=== PATIENT | female | born 1985 | race Caucasian/White ===

== ENCOUNTER 2016-07-23 21:26 | Emergency (ER) | payer MEDICAID ==
[~2016-07-23] VITALS: Ht 172.7 cm; Wt 108.9 kg
[~2016-07-23 21:26] MED LIST: ACYC400T PO; ALPR0.5T7 PO; ARIP15TA PO; CEPH250C PO; CETI10TA17; CLON0.253 PO; CYCL10TA9; DOCU100C37 PO; ESCI10TA48; ESCI20TA45 PO; GABA-488; HYDR-34 PO; HYDR-3816 PO; IBUP-1773 PO; LEVO75TA6 PO; LITH300C PO; LORA0.5T PO; PALI234D IM; PRAZ2CAP2; RT-ALBUINH IH; SERT50TA PO; SIME80TA16 PO; SMTR50T PO; TPR25T PO; TRAZ150T42 PO; TRM50T PO; ZOLP5TAB6
[2016-07-23 22:12] LABS: BILIRUBIN,URINE NEGATIVE (NEGATIVE); KETONES,URINE NEGATIVE (NEGATIVE); LEUKOCYTE ESTERASE ,URINE NEGATIVE (NEGATIVE); NITRITE,URINE NEGATIVE (NEGATIVE); PH,URINE 6 (5-9); PROTEIN,URINE NEGATIVE (NEGATIVE); UROBILINOGEN,URINE NORMAL (NORMAL)
[2016-07-23 22:29] LABS: BASOPHILS % (AUTO) 0 % (0-10); EOSINOPHILS # (AUTO) 0.3 10^3/uL (0.0-0.3); EOSINOPHILS % (AUTO) 2 % (0-10); LYMPHOCYTES % (AUTO) 25 % (12-44); MEAN CORPUSCULAR HEMOGLOBIN 31 PG (25-34); MEAN CORPUSCULAR HGB CONC 35 G/DL (32-36); MEAN CORPUSCULAR VOLUME 89 FL (80-99); MEAN PLATELET VOLUME 9.2 FL (7.4-10.4); MONOCYTES # (AUTO) 1.2 X 10^3 (0.0-1.0); MONOCYTES % (AUTO) 7 % (0-12); NEUTROPHILS # (AUTO) 10.1 X 10^3 (1.8-7.8); NEUTROPHILS % (AUTO) 65 % (42-75); PLATELET COUNT 280 10^3/uL (130-400); RED BLOOD COUNT 4.57 10^6/uL (4.35-5.85); RED CELL DISTRIBUTION WIDTH 12.4 % (10.0-14.5); WHITE BLOOD COUNT 15.6 10^3/uL (4.3-11.0)
[2016-07-23 22:48] LABS: ALANINE AMINOTRANSFERASE 18 U/L (0-55); ALBUMIN 4.3 G/DL (3.2-4.5); ANION GAP 10 MMOL/L (5-14); ASPARTATE AMINO TRANSFERASE 12 U/L (5-34); BILIRUBIN,TOTAL 0.3 MG/DL (0.1-1.0); BLOOD UREA NITROGEN 15 MG/DL (7-18); BUN/CREATININE RATIO 18; CALCIUM 9.6 MG/DL (8.5-10.1); CARBON DIOXIDE 24 MMOL/L (21-32); CHLORIDE 107 MMOL/L (98-107); CREATININE SERUM 0.84 MG/DL (0.60-1.30); GFR ESTIMATED > 60; GLUCOSE 102 MG/DL (70-105); POTASSIUM 3.7 MMOL/L (3.6-5.0); SALICYLATE < 5.0 MG/DL (5.0-20.0); SODIUM 141 MMOL/L (135-145); TOTAL PROTEIN 6.6 G/DL (6.4-8.2)
[2016-07-23 22:53] LABS: ACETAMINOPHEN < 10 UG/ML (10-30); ALCOHOL < 10 MG/DL (<10)
[2016-07-23 23:15] LABS: BAND NEUTROPHILS 0 %; BASOPHILS % (MANUAL) 0 %; EOSINOPHILS % (MANUAL) 2 %; LYMPHOCYTES % (MANUAL) 28 %; NEUTROPHILS % (MANUAL) 62 %
--- NOTE | 2016-07-23 23:44 | ED Psychosocial ---
General Chief Complaint: Psych/Social Disorder Stated Complaint: MIGRAINE Nursing Triage Note: PT STATES SHE HAS HAD A MIGRANE ALL DAY. MOTHER STATES THE PT HAS PARANOID SCHITZOPHRENIA AND HAS NOT BEEN TAKING HER MEDICATIONS, STATES THE PT HAD AN INCIDENT YESTERDAY AND WAS DOING METH WHICH THE PT DENIES BUT STATES SHE WAS TAKING XANAX. Source: patient Exam Limitations: no limitations History of Present Illness Time seen by provider: 23:25 Initial Comments Here with patient's mother reports that the patient has been very agitated and having angry and dangerous outburst at home. She does have known schizophrenia but has not been taking her medications. Patient states that the mental health services is not giving it to her. Mother states that they are trying but the patient is refusing. Patient states that she does not want to take her medicines and will not. Patient is very angry and does have outbursts with her mother. She admits that she wants everybody to and then also states that she wouldn't care if she as well because she would be a better place. Denies any recent alcohol or drugs. No other reports of injury or illness. Patient does not report headache or headache concerns with me. Timing/Duration: week, getting worse, other Severity: moderate Associated Symptoms: other (angry outbursts and agitated behavior) Allergies and Home Medications Allergies Coded Allergies: No Known Drug Allergies (Unverified , 08/15/12) Home Medications Acyclovir 400 Mg Tablet 400 MG PO TID PRN PRN COLD SORE OUTBREAK (Reported) Albuterol Sulfate 6.7 Gm Hfa.aer.ad 2 PUFF IH Q4H PRN PRN SHORTNESS OF BREATH ( Reported) Cephalexin 250 Mg Capsule #40 250 MG PO QID Prescribed by: VENKAT LOOMIS on 04/29/15833 Docusate Sodium 100 Mg Capsule #60 100 MG PO BID PRN PRN CONSTIPATION Prescribed by: VENKAT LOOMIS on 04/29/15833 Escitalopram Oxalate 20 Mg Tablet 20 MG PO HS (Reported) Hydrocodone/Acetaminophen 1 Each Tablet #45 1-2 EA PO Q6H PRN PRN PAIN Prescribed by: VENKAT LOOMIS on 04/29/15833 Ibuprofen 600 Mg Tablet 600 MG PO TID PRN PRN PAIN (Reported) Ibuprofen 600 Mg Tablet #40 600 MG PO Q6H Prescribed by: VENKAT LOOMIS on 04/29/15833 Levothyroxine Sodium 75 Mcg Tablet 75 MCG PO HS (Reported) Paliperidone Palmitate 234 Mg/1.5 Ml Disp.syrin 1.5 ML IM MONTHLY (Reported) Simethicone 80 Mg Tab.chew #30 40 MG PO TID PRN PRN INDIGESTION Prescribed by: VENKAT LOOMIS on 04/29/15833 Constitutional: see HPINo chills, No fever EENTM: no symptoms reported Respiratory: no symptoms reportedNo cough, No short of breath Cardiovascular: no symptoms reported Gastrointestinal: no symptoms reportedNo nausea, No vomiting Musculoskeletal: no symptoms reported Skin: no symptoms reported Psychiatric/Neurological: See HPI Anxiety Emotional Problems All Other Systems Reviewed Negative Unless Noted: Yes Past Mhglnux-Xnpfgm-Ftznez Hx Patient Social History Alcohol Use: Denies Use Recreational Drug Use: Yes Smoking Status: Current Everyday Smoker Recent Foreign Travel: No Contact w/Someone Who Travel: No Recent Infectious Disease Expo: No Recent Hopitalizations: No Seasonal Allergies Seasonal Allergies: No Surgeries HX Surgeries: Yes (cone bx of cervix, some type ureteral surgery) Surgeries: Bladder Surgery Respiratory Hx Respiratory Disorders: Yes Respiratory Disorders: Asthma Cardiovascular Hx Cardiac Disorders: No Neurological Hx Neurological Disorders: No Reproductive System Hx Reproductive Disorders: Yes (CPP,SUDHEER III) Female Reproductive Disorders: Endometriosis Genitourinary Hx Genitourinary Disorders: No Gastrointestinal Hx Gastrointestinal Disorders: No Gastrointestinal Disorders: Chronic Diarrhea Musculoskeletal Hx Musculoskeletal Disorders: Yes Musculoskeletal Disorders: Arthritis, Chronic Back Pain Endocrine Hx Endocrine Disorders: Yes HEENT HX ENT Disorders: No Cancer Hx Cancer: No Psychosocial Hx Psychiatric Problems: Yes (Nightmares, paranoid schizo) Behavioral Health Disorders: Anxiety, Schizophrenia, Depression Integumentary HX Skin/Integumentary Disorder: No Blood Transfusions Hx Blood Disorders: No Adverse Reaction to a Blood Tr: No Reviewed Nursing Assessment Reviewed/Agree w Nursing PMH: Yes Family Medical History Significant Family History: No Pertinent Family Hx Family Medial History: Alcoholism 19 FATHER Thyroid disease 19 MOTHER Physical Exam Vital Signs Vital Sign - Last 12Hours 07/23/16 07/24/16 22:03 02:42 Temp 98.6 Pulse 87 Resp 18 B/P 154/86 Pulse Ox 96 Capillary Refill : Less Than 3 Seconds General Appearance: WD/WN no apparent distress HEENT: PERRL/EOMI pharynx normal Neck: full range of motion supple Respiratory: lungs clear normal breath sounds Cardiovascular: regular rate, rhythm no murmur Gastrointestinal: non tender soft Extremities: normal range of motion non-tender Neurologic/Psychiatric: alert depressed affect Appearance/Memory: disheveled impaired insight Behavior/Eye Contact: avoids eye contact threatening eye contact increased rate of speech belligerent Thoughts/Hallucinations: flight of ideas persecution Skin: normal color warm/dry Progress/Results/Core Measures Results/Orders Lab Results Laboratory Tests Test 07/23/16 22:06 07/23/16 22:20 Range/Units Ur Tricyclic Antidepressants Screen NEGATIVE NEGATIVE Urine Amphetamines Screen NEGATIVE NEGATIVE Urine Bacteria TRACE /HPF Urine Barbiturates Screen NEGATIVE NEGATIVE Urine Benzodiazepines Screen NEGATIVE NEGATIVE Urine Bilirubin NEGATIVE NEGATIVE Urine Cannabinoids Screen NEGATIVE NEGATIVE Urine Casts NONE /LPF Urine Clarity CLEAR Urine Cocaine Screen NEGATIVE NEGATIVE Urine Color YELLOW Urine Crystals NONE /LPF Urine Culture Indicated NO Urine Glucose (UA) NEGATIVE NEGATIVE Urine Ketones NEGATIVE NEGATIVE Urine Leukocyte Esterase NEGATIVE NEGATIVE Urine Methadone Screen NEGATIVE NEGATIVE Urine Methamphetamines Screen NEGATIVE NEGATIVE Urine Mucus NEGATIVE /LPF Urine Nitrite NEGATIVE NEGATIVE Urine Opiates Screen NEGATIVE NEGATIVE Urine Oxycodone Screen NEGATIVE NEGATIVE Urine Phencyclidine Screen NEGATIVE NEGATIVE Urine Propoxyphene Screen NEGATIVE NEGATIVE Urine Protein NEGATIVE NEGATIVE Urine RBC NONE /HPF Urine RBC (Auto) NEGATIVE NEGATIVE Urine Specific Naylor 1.030 H 1.016-1.022 Urine Squamous Epithelial Cells 2-5 /HPF Urine Urobilinogen NORMAL NORMAL MG/DL Urine WBC NONE /HPF Urine pH 6 5-9 Acetaminophen Level < 10 L 10-30 UG/ML Alanine Aminotransferase (ALT/SGPT) 18 0-55 U/L Albumin 4.3 3.2-4.5 G/DL Alkaline Phosphatase 65 40-136 U/L Anion Gap 10 5-14 MMOL/L Aspartate Amino Transf (AST/SGOT) 12 5-34 U/L BUN/Creatinine Ratio 18 Band Neutrophils 0 % Basophils # (Auto) 0.0 0.0-0.1 10^3/uL Basophils % (Manual) 0 % Basophils (%) (Auto) 0 0-10 % Blood Morphology Comment NORMAL Blood Urea Nitrogen 15 7-18 MG/DL Calcium Level 9.6 8.5-10.1 MG/DL Carbon Dioxide Level 24 21-32 MMOL/L Chloride Level 107 98-107 MMOL/L Creatinine 0.84 0.60-1.30 MG/DL Eosinophils # (Auto) 0.3 0.0-0.3 10^3/uL Eosinophils % (Manual) 2 % Eosinophils (%) (Auto) 2 0-10 % Estimat Glomerular Filtration Rate > 60 Glucose Level 102 70-105 MG/DL Hematocrit 41 35-52 % Hemoglobin 14.3 11.5-16.0 G/DL Lymphocytes # (Auto) 4.0 1.0-4.0 X 10^3 Lymphocytes % (Manual) 28 % Lymphocytes (%) (Auto) 25 12-44 % Mean Corpuscular Hemoglobin 31 25-34 PG Mean Corpuscular Hemoglobin Concent 35 32-36 G/DL Mean Corpuscular Volume 89 80-99 FL Mean Platelet Volume 9.2 7.4-10.4 FL Monocytes # (Auto) 1.2 H 0.0-1.0 X 10^3 Monocytes % (Manual) 8 % Monocytes (%) (Auto) 7 0-12 % Neutrophils # (Auto) 10.1 H 1.8-7.8 X 10^3 Neutrophils % (Manual) 62 % Neutrophils (%) (Auto) 65 42-75 % Platelet Count 280 130-400 10^3/uL Potassium Level 3.7 3.6-5.0 MMOL/L Red Blood Count 4.57 4.35-5.85 10^6/uL Red Cell Distribution Width 12.4 10.0-14.5 % Salicylates Level < 5.0 L 5.0-20.0 MG/DL Serum Alcohol < 10 <10 MG/DL Sodium Level 141 135-145 MMOL/L Total Bilirubin 0.3 0.1-1.0 MG/DL Total Protein 6.6 6.4-8.2 G/DL White Blood Count 15.6 H 4.3-11.0 10^3/uL My Orders Orders-DERICK GONZALEZ MD Ua Culture If Indicated (07/23/16 22:00) Cbc With Automated Diff (07/23/16 22:00) Comprehensive Metabolic Panel (07/23/16 22:00) Alcohol (07/23/16 22:00) Drug Screen Stat (Urine) (07/23/16 22:00) Acetaminophen (07/23/16 22:00) Salicylate (07/23/16 22:00) Ekg Tracing (2/4/17 22:00) Monitor-Rhythm Ecg Trace Only (07/23/16 22:00) Manual Differential (07/23/16 22:20) Ibuprofen Tablet (Motrin Tablet) (07/24/16 01:14) Vital Signs/I&O Vital Sign - Last 12Hours 07/23/16 07/24/16 22:03 02:42 Temp 98.6 Pulse 87 89 Resp 18 18 B/P 154/86 98/51 Pulse Ox 96 Blood Pressure Mean: 108 Point of Care Testing Urine -Bedside: Negative Progress Note : Progress Note Seen and evaluated. Labs and EKG ordered. Patient is medically cleared for mental health evaluation. 2345: [facility] notified and will see patient. 0045: [facility] here evaluating patient. 0110: Patient states that she will voluntarily go for inpatient admission for schizophrenia with psychotic episode including homicidal and suicidal thoughts. 0200: [place], [place] has been available. Paperwork sent for evaluation. 0325: Patient accepted in transfer to [place], [place]. Dr. Mcfadden, ER physician, accepts patient in transfer. Patient will go by transport service. Patient is voluntary admission. See psychiatric screening. ECG Initial ECG Impression Date: Jul 23, 2016 Initial ECG Impression Time: 23:08 Initial ECG Rate: 88 Initial ECG Rhythm: Normal Sinus Comment Sinus rhythm with normal axis. No evidence of ST elevation NM. No previous available for comparison. Interpreted by me. Departure Impression Impression: Primary Impression: Schizophrenia Qualified Code: F20.9 - Schizophrenia, unspecified Additional Impression: Acute psychosis Disposition: XFER SHT-TRM HOSP Condition: Stable Transfer Transfer Time: 03:25 Transfer Facility: [place], [place], Dr. Mcfadden accepting Method of Transfer: Private Vehicle ([facility]) Departure-Patient Inst. Decision time for Depature: 01:17 Referrals: ARTURO MASON DO (PCP) Primary Care Physician [facility] (Family) Primary Care Physician DERICK GONZALEZ MD Jul 23, 2016 23:44
[2016-07-24] MEDS ORDERED: IBUPROFEN 800 MG (MOTRIN) TAB PO STA (01:14)
[2016-07-24 02:42] VITALS: BP 98/51
[2016-07-24 04:11] VITALS: BP 105/71
== END 2016-07-24 04:10 | disposition short-term general hospital (02) ==
LOC: EDUNIT# 21:26 → ER 21:27
DX: F20.9 Schizophrenia, unspecified (principal); F23 Brief psychotic disorder; Z79.899 Other long term (current) drug therapy; F17.210 Nicotine dependence, cigarettes, uncomplicated; Z91.14 Patient's other noncompliance with medication regimen
CPT/HCPCS: 36415; 80053; 80306; 80320; 80329; 81000; 84703; 85007; 85027; 93005

== ENCOUNTER → 2016-10-18 | Outpatient (CLI) | payer MEDICAID ==
--- NOTE | 2016-10-18 09:36 | Diagnostic Imaging Report ---
PROCEDURE: US abdomen complete. TECHNIQUE: Multiple real-time grayscale images were obtained over the abdomen in various projections. INDICATION: Pain. FINDINGS: The liver appeared unremarkable. The kidneys are unremarkable in size, cortical thickness, and echotexture and showed no obstruction, solid or cystic mass, or echogenic stone. Aorta and IVC appeared unremarkable. Spleen nonfocal and within normal limits of size. The gallbladder normal. No biliary ductal dilatation. The liver appeared normal. There was no ascites. Much of the pancreas obscured by overlying bowel gas. IMPRESSION: Normal abdominal ultrasound. Obscuration of the pancreas noted. Dictated by: Dictated on workstation # [id number]
== END ==
LOC: RAD 07:59
PROVIDERS: ATTEND Family Medicine
DX: R10.84 Generalized abdominal pain (principal)
CPT/HCPCS: 76700

== ENCOUNTER 2017-08-21 17:25 | Emergency (ER) | payer MEDICAID ==
[~2017-08-21] VITALS: Ht 157.5 cm; Wt 90.7 kg
[~2017-08-21 17:25] MED LIST changes: -HYDR-3816 PO
--- OUTSIDE RECORDS SUMMARY | 2017-08-21 17:30 | XMS REPORT ---
Author Author JAMAICA COSTA [facility] Address [address] [place] [address] Care Team Providers Care Nuclear Engineer Name Role Phone JAMAICA COSTA Unavailable PROBLEMS Type Condition ICD9-CM Code MQL76-FR Code Onset Dates Condition Status SNOMED Code Problem Hypertriglyceridemia E78.1 Active 058014204 Problem Prediabetes R73.09 Active 2237150 Problem Mild intermittent asthma, uncomplicated J45.20 Active 516035280 Problem Cervical dysplasia N87.9 Active 51697978 Problem Bulge of cervical disc without myelopathy M50.20 Active 644105254 Problem Lumbar facet arthropathy M46.96 Active 198747082 Problem Vaginal burning N94.9 Active 823542259 Problem 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 dental examination Z01.20 Active 819616301 Problem Generalized anxiety disorder F41.1 Active 93068244 Problem Hypothyroidism E03.9 Active 35210146 Problem Other chronic pain G89.29 Active 63525820 Problem Schizoaffective disorder, bipolar type F25.0 Active 33628803 ALLERGIES Substance Reaction Event Type Date Status Seroquel leg pain Drug Allergy May, Active SOCIAL HISTORY No smoking Hx information available PLAN OF CARE Activity Details Follow Up prn Reason: VITAL SIGNS Height 62 in 2016-05-31 Weight 170.5 lbs 2016-05-31 Temperature 97.7 degrees Fahrenheit 2016-05-31 Heart Rate 84 bpm 2016-05-31 Respiratory Rate 18 2016-05-31 BMI 31.18 kg/m2 2016-05-31 Blood pressure systolic 148 mmHg 2016-05-31 Blood pressure diastolic 84 mmHg 2016-05-31 MEDICATIONS Medication Instructions Dosage Frequency Start Date End Date Duration Status Haloperidol 5 MG Orally Twice a day 1 tablet 12h Active Pravastatin Sodium 20 MG Orally Once a day 1 tablet 24h 30 Active Ibuprofen 600 MG 1 Tablet by Po route 3 times per day for pain 8h 30 Active Albuterol Sulfate HFA 108 (90 Base) MCG/ACT Inhalation every 4 hrs 2 puffs as needed 4h 03 Sep, 2015 Active Invega Sustenna 39 MG/0.25ML 0.5 ml Active Minipress 2 MG Orally Once a day qHS 1 capsule Active Zyrtec Allergy 10 MG Orally Once a day 1 tablet as needed 24h Active Lexapro 20 MG Orally Once a day 1 tablet 24h May, Active RESULTS Name Result Date Reference Range LIPID PANEL 2016-06-02 Cholesterol, Total 188 100-199 Triglycerides 77 0-149 HDL Cholesterol 64 >39 VLDL Cholesterol Sim 15 5-40 LDL Cholesterol Calc 109 0-99 Comment: PROCEDURES Procedure Date Ordered Related Diagnosis Body Site Office Visit, Est Pt., Level 3 May 31, 2016 [facility] May 31, 2016 VENIPUNCT, ROUTINE* May 31, 2016 IMMUNIZATIONS No Known Immunizations
--- OUTSIDE RECORDS SUMMARY | 2017-08-21 17:30 | XMS REPORT ---
Author Author ADELA VILLAFUERTE [facility] eClinical[employer] Address Unknown Phone Unavailable Care Team Providers Care Equipment Maintenance Tech Name Role Phone ADELA VILLAFUERTE CP Unavailable Allergies No Known Allergies Problems Problem Type Condition Code Onset Dates Condition Status Problem Prediabetes R73.09 Active Problem Mild intermittent asthma, uncomplicated J45.20 Active Problem Hypothyroidism E03.9 Active Problem Bulge of cervical disc without myelopathy M50.20 Active Problem Cervical dysplasia N87.9 Active Problem Hypertriglyceridemia E78.1 Active Problem Lumbar facet arthropathy M46.96 Active Medications No Known Medications Results No Known Results Summary Purpose eClinicalWorks Submission
--- OUTSIDE RECORDS SUMMARY | 2017-08-21 17:30 | XMS REPORT ---
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
--- OUTSIDE RECORDS SUMMARY | 2017-08-21 17:30 | XMS REPORT ---
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 Problem Persistent disorder of initiating 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.42 Active Problem Schizoaffective disorder, unspecified 295.70 Active Problem Hypothyroidism 244.9 Active Problem Hypertriglyceridemia 272.1 Active Problem Mild intermittent asthma 493.90 Active Problem Lumbar facet arthropathy 721.3 Active Problem Anxiety state, unspecified 300.00 Active Problem Prediabetes 790.29 Active Problem Bulge of cervical disc without myelopathy 722.0 Active Problem Migraine, unspecified without mention of intractable migraine without mention of status migrainosus 346.90 Active Problem Panic disorder without agoraphobia 300.01 Active Problem Unspecified nonpsychotic mental disorder 300.9 Active 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
--- OUTSIDE RECORDS SUMMARY | 2017-08-21 17:30 | XMS REPORT ---
Author Author CLARE WETZEL Organization [facility] Address [address] [place] [address] Care Team Providers Care Robotics Software Engineer Name Role Phone CLARE WETZEL Unavailable PROBLEMS Type Condition ICD9-CM Code IVM26-PM Code Onset Dates Condition Status SNOMED Code Problem Prediabetes R73.09 Active 8205132 Problem Generalized anxiety disorder F41.1 Active 81451391 Problem Mild intermittent asthma, uncomplicated J45.20 Active 659268320 Problem Bulging of cervical intervertebral disc M50.20 Active 349425203 Problem Hand eczema L30.9 Active 075693566 Problem Other chronic pain G89.29 Active 97008277 Problem Schizoaffective disorder, bipolar type F25.0 Active 49171900 Problem Vaginal burning N94.9 Active 224011861 Problem 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 dental examination Z01.20 Active 358362891 Problem Bulge of cervical disc without myelopathy M50.20 Active 176602912 Problem Lumbar facet arthropathy M46.96 Active 098477954 Problem Hypothyroidism E03.9 Active 94846791 Problem Cervical dysplasia N87.9 Active 38713309 Problem Hypertriglyceridemia E78.1 Active 812132484 ALLERGIES Substance Reaction Event Type Date Status Seroquel leg pain Drug Allergy Jul, Active SOCIAL HISTORY Never Assessed PLAN OF CARE Activity Details Follow Up prn Reason: VITAL SIGNS Height 62 in 2016-08-12 Weight 182.2 lbs 2016-08-12 Temperature 97.4 degrees Fahrenheit 2016-08-12 Heart Rate 88 bpm 2016-08-12 Respiratory Rate 18 2016-08-12 BMI 33.32 kg/m2 2016-08-12 Blood pressure systolic 134 mmHg 2016-08-12 Blood pressure diastolic 78 mmHg 2016-08-12 MEDICATIONS Medication Instructions Dosage Frequency Start Date End Date Duration Status PredniSONE 20 MG Orally Once a day 2 tablet 24h Jul, Aug, 5 days Active Pravastatin Sodium 20 MG Orally Once a day 1 tablet 24h 30 Active Albuterol Sulfate HFA 108 (90 Base) MCG/ACT Inhalation every 4 hrs 2 puffs as needed 4h Feb, Active Ibuprofen 600 MG 1 Tablet by Po route 3 times per day for pain 8h 30 Active Minipress 2 MG Orally Once a day qHS 1 capsule Active Invega Sustenna 39 MG/0.25ML 0.5 ml Active RESULTS No Results PROCEDURES Procedure Date Ordered Result Body Site EAR LAVAGE 2016-08-12 N/A IMMUNIZATIONS No Known Immunizations MEDICAL (GENERAL) HISTORY Type Description Date Medical History paranoid schizophrenia Medical History eczema Medical History tracheomalacia at Medical History hyperthyroidism- lithium toxicity Surgical History bladder surgery 1991 Surgical History Urethral Surgery age 7 Surgical History Cold knife cone biopsy of cervix Surgical History hysterectomy- removal uterus fallopian tubes & cervix 2014 Hospitalization History past surgery Hospitalization History [facility] 03/2016 Hospitalization History [facility] x 30 days
--- OUTSIDE RECORDS SUMMARY | 2017-08-21 17:30 | XMS REPORT ---
Author Author DEVORAH BANEGAS Organization [employer] Address Unknown Phone Unavailable Care Team Providers Care Meat Packager Name Role Phone DEVORAH BANEGAS CP Unavailable Allergies No Known Allergies Problems Problem Type Condition ICD-9 Code Onset Dates Condition Status Problem Disorganized [...] of cervical disc without myelopathy 722.0 Active Assessment Contact with or exposure to venereal diseases V01.6 Active Assessment Back pain 724.5 Active Assessment Pelvic pain in female 625.9 Active Problem Migraine, unspecified without mention of intractable migraine without mention of status migrainosus 346.90 Active Problem Panic disorder without agoraphobia 300.01 Active Assessment Counseling on other sexually transmitted diseases V65.45 Active Problem Unspecified nonpsychotic mental disorder 300.9 Active Assessment Screen for STD (sexually transmitted disease) V74.5 Active 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 Medications No Known Medications Procedures Procedure Coding System Code Date No Charge CPT-4 42282 Mar 03, 2015 TRICHOMONAS VAGIN, DIR PROBE CPT-4 79304 Mar 03, 2015 URINALYSIS, AUTO, W/O SCOPE CPT-4 84027 Mar 03, 2015 VENIPUNCT, ROUTINE* CPT-4 71286 Mar 03, 2015 CULTURE, BACTERIA, OTHER CPT-4 09825 Mar 03, 2015 Office Visit, Est Pt., Level 4 CPT-4 22151 Mar 03, 2015 Vital Signs Date/Time: Mar 03, 2015 Temperature 97.9 F Weight 194.0 lbs Height 62 in BMI 35.48 Index Blood Pressure Diastolic 64 mmHg Blood Pressure Systolic 128 mmHg Cardiac Monitoring Heart Rate 82 bpm Results No Known Results Summary Purpose eClinicalWorks Submission
--- OUTSIDE RECORDS SUMMARY | 2017-08-21 17:30 | XMS REPORT ---
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 Problem Persistent disorder of initiating 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.42 Active Problem Schizoaffective disorder, unspecified 295.70 Active Problem Hypertriglyceridemia 272.1 Active Problem Prediabetes 790.29 Active Problem Hypothyroidism 244.9 Active Problem Hyperthyroidism 242.90 Active Problem Anxiety state, unspecified 300.00 Active Problem Bulge of cervical disc without myelopathy 722.0 Active Problem Lumbar facet arthropathy 721.3 Active Problem Migraine, unspecified without mention of intractable migraine without mention of status migrainosus 346.90 Active Problem Panic disorder without agoraphobia 300.01 Active Problem Unspecified nonpsychotic mental disorder 300.9 Active 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
--- OUTSIDE RECORDS SUMMARY | 2017-08-21 17:30 | XMS REPORT ---
Author Author ADELA VILLAFUERTE Organization [employer] Address Unknown Phone Unavailable Care Team Providers Care Wafer Machine Operator Name Role Phone ADELA VILLAFUERTE CP Unavailable [...]
--- OUTSIDE RECORDS SUMMARY | 2017-08-21 17:30 | XMS REPORT ---
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 Problem Prediabetes R73.09 Active Problem Mild intermittent asthma, uncomplicated J45.20 Active Problem Hypothyroidism E03.9 Active Problem Bulge of cervical disc without myelopathy M50.20 Active Problem Anxiety state, unspecified 300.00 Active Problem Hypertriglyceridemia E78.1 Active Problem Lumbar facet arthropathy M46.96 Active Assessment Prediabetes R73.09 Active Assessment Hypothyroidism E03.9 Active Problem Panic disorder without agoraphobia 300.01 Active Assessment Hypertriglyceridemia E78.1 Active Problem Unspecified nonpsychotic mental disorder 300.9 Active Medications No Known Medications Results No Known Results Summary Purpose eClinicalWorks Submission
--- OUTSIDE RECORDS SUMMARY | 2017-08-21 17:30 | XMS REPORT ---
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
--- OUTSIDE RECORDS SUMMARY | 2017-08-21 17:30 | XMS REPORT ---
Author Author ADELA VILLAFUERTE Organization [employer] Address Unknown Phone Unavailable Care Team Providers Care Senior Software Qa Analyst Name Role Phone ADELA VILLAFUERTE CP Unavailable [...] disorder 300.9 Active Medications No Known Medications Procedures Procedure Coding System Code Date ASSAY THYROID STIM HORMONE CPT-4 34559 Jun 03, 2015 LIPID PANEL CPT-4 01831 Jun 03, 2015 COMPREHEN METABOLIC PANEL CPT-4 72389 Jun 03, 2015 VENIPUNCT, ROUTINE* CPT-4 42731 Jun 03, 2015 Results Name Result Date Reference Range Unit Abnormality Flag ROUTINE VENIPUNCTURE Summary Purpose eClinicalWorks Submission
--- OUTSIDE RECORDS SUMMARY | 2017-08-21 17:30 | XMS REPORT ---
Author Author ADELA VILLAFUERTE Organization [employer] Address Unknown Phone Unavailable Care Team Providers Care Mixing Operator Name Role Phone ADELA VILLAFUERTE CP [...]
--- OUTSIDE RECORDS SUMMARY | 2017-08-21 17:30 | XMS REPORT ---
Author Author ADELA VILLAFUERTE [facility] [place] eClinicalWorks Address Unknown Phone Unavailable Care Team Providers Care Flatwork Catcher Name Role Phone ADELA VILLAFUERTE Unavailable Allergies No Known Allergies Problems Problem [...] Problem Lumbar facet arthropathy M46.96 Active Medications Medication Code System Code Instructions Start Date End Date Status Dosage Pravastatin Sodium [facility] [address]-56 20 MG Orally Once a day Jun 04, 2015 1 tablet Results No Known Results Summary Purpose eClinicalWorks Submission
--- OUTSIDE RECORDS SUMMARY | 2017-08-21 17:30 | XMS REPORT ---
Author Author MARIBEL FULLER Organization eClinicalWorks Address Unknown Phone Unavailable Care Team Providers Care Photo Lab Specialist Name Role Phone MARIBEL FULLER CP Unavailable Allergies, Adverse Reactions, Alerts Substance Reaction Event Type Seroquel leg pain Drug Allergy Problems Problem Type Condition Code Onset Dates Condition Status Assessment Pain in left knee M25.562 Active Problem Prediabetes R73.09 Active Problem Mild intermittent asthma, uncomplicated J45.20 Active Problem Hypothyroidism E03.9 Active Problem Bulge of cervical disc without myelopathy M50.20 Active Problem Cervical dysplasia N87.9 Active Problem Hypertriglyceridemia E78.1 Active Problem Lumbar facet arthropathy M46.96 Active Medications Medication Code System Code Instructions Start Date End Date Status Dosage Zyrtec Allergy [facility] [address]-16 10 MG Orally Once a day 1 tablet as needed Ibuprofen [facility] 92920949066 600 MG Three times a day 1 Tablet by Po route 3 times per day for pain Albuterol Sulfate HFA [facility] [address]-83 108 (90 Base) MCG/ACT Inhalation every 4 hrs Feb 19, 2015 2 puffs as needed Pravastatin Sodium [facility] 53939565028 20 MG Orally Once a day 1 tablet Synthroid [facility] 39669304614 75 MCG Orally Once a day 1 tablet Lexapro [facility] [address]-31 20 MG Orally Once a day May 23, 2014 1 tablet Gabapentin [facility] [address]-46 300 MG Orally Three times a day 1 capsule Procedures Procedure Coding System Code Date Office Visit, Est Pt., Level 4 CPT-4 05376 January 13, 2016 X-RAY EXAM OF KNEE, 3 CPT-4 43265 January 13, 2016 Vital Signs Date/Time: January 13, 2016 Cardiac Monitoring Heart Rate 76 bpm Weight 175.7 lbs Height 62 in BMI 32.13 Index Blood Pressure Diastolic 76 mmHg Blood Pressure Systolic 144 mmHg Results No Known Results Summary Purpose eClinicalWorks Submission
--- OUTSIDE RECORDS SUMMARY | 2017-08-21 17:31 | XMS REPORT ---
Author Author TIFFANY NICHOLS Organization e[employer] Address Unknown Phone Unavailable Care Team Providers Care Media Analyst Name Role Phone TIFFANY NICHOLS CP Unavailable Allergies No Known Allergies Problems [...]
--- OUTSIDE RECORDS SUMMARY | 2017-08-21 17:31 | XMS REPORT ---
Author Author ADELA VILLAFUERTE Organization eClinicalWorks Address Unknown Phone Unavailable Care Team Providers Care Belt Cleaner Name Role Phone ADELA VILLAFUERTE CP Unavailable [...]
--- OUTSIDE RECORDS SUMMARY | 2017-08-21 17:31 | XMS REPORT ---
Author Author ADELA VILLAFUERTE Organization [facility] Address [address] [place] [address] Care Team Providers Care Perinatal Social Worker Name Role Phone CHRISTO ADELA Unavailable PROBLEMS Type Condition ICD9-CM Code [id number] Code Onset Dates Condition Status SNOMED Code Problem Prediabetes R73.09 Active 6717577 Problem Generalized anxiety disorder F41.1 Active 42224070 Problem Mild intermittent asthma, uncomplicated J45.20 Active 134868491 Problem Bulging of cervical intervertebral disc M50.20 Active 411812189 Problem Hand eczema L30.9 Active 086087186 Problem Other chronic pain G89.29 Active 55214028 Problem Schizoaffective disorder, bipolar type F25.0 Active 95063291 Problem Vaginal burning N94.9 Active 869538944 Problem 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 dental examination Z01.20 Active 559378401 Problem Bulge of cervical disc without myelopathy M50.20 Active 056724885 Problem Lumbar facet arthropathy M46.96 Active 407280164 Problem Hypothyroidism E03.9 Active 56212525 Problem Cervical dysplasia N87.9 Active 08315774 Problem Hypertriglyceridemia E78.1 Active 153868508 ALLERGIES Substance Reaction Event Type Date Status Seroquel leg pain Drug Allergy Aug, Active SOCIAL HISTORY Never Assessed PLAN OF CARE Activity Details Follow Up 3 Months Reason: VITAL SIGNS Height 62 in 2016-08-25 Weight 180 lbs 2016-08-25 Temperature 98.5 degrees Fahrenheit 2016-08-25 Heart Rate 80 bpm 2016-08-25 Respiratory Rate 20 2016-08-25 BMI 32.92 kg/m2 2016-08-25 Blood pressure systolic 128 mmHg 2016-08-25 Blood pressure diastolic 80 mmHg 2016-08-25 MEDICATIONS Medication Instructions Dosage Frequency Start Date End Date Duration Status Bactroban 2 % Externally Two times a day 1 application to affected area 12Aug, Aug, 15 days Active Dramamine Active Albuterol Sulfate HFA 108 (90 Base) MCG/ACT Inhalation every 4 hrs 2 puffs as needed 4h 03 Feb, 2015 Active Naproxen 250 MG Orally Twice a day 1 tablet 12h Aug, Sep, 30 day(s) Active Pravastatin Sodium 20 MG Orally Once a day 1 tablet 24h 30 Active Minipress 2 MG Orally Once a day qHS 1 capsule Active Fluticasone Propionate 50 MCG/ACT Nasally Once a day 1 spray in each nostril 24h Aug, 30 day(s) Active Invega Sustenna 39 MG/0.25ML 0.5 ml Active Lexapro 20 MG Orally Once a day 1 tablet 24h May, Active RESULTS Name Result Date Reference Range TSH W/ FREE T4 2016-08-25 TSH 1.500 0.450-4.500 T4,Free(Direct) 1.12 0.82-1.77 PROCEDURES Procedure Date Ordered Result Body Site ASSAY THYROID STIM HORMONE August 25, 2016 ASSAY OF FREE THYROXINE August 25, 2016 VENIPUNCT, ROUTINE* August 25, 2016 IMMUNIZATIONS No Known Immunizations MEDICAL (GENERAL) HISTORY [...]
--- OUTSIDE RECORDS SUMMARY | 2017-08-21 17:31 | XMS REPORT ---
Author Author TIFFANY NICHOLS Organization eClinicalWorks Address Unknown Phone Unavailable Care Team Providers Care Leather Scraper Name Role Phone TIFFANY NICHOLS Unavailable Allergies [...]
--- OUTSIDE RECORDS SUMMARY | 2017-08-21 17:31 | XMS REPORT ---
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 Medications Medication Code System Code Instructions Start Date End Date Status Dosage Zyrtec Allergy [facility] [address]-89 10 MG Orally Once a day 1 tablet as needed Lexapro [facility] [address]-89 20 MG Orally Once a day May 23, 2014 1 tablet Ibuprofen [facility] [address]-95 600 MG Three times a day August 19, 2014 1 Tablet by Po route 3 times per day for pain Synthroid [facility] 77485948845 75 MCG Orally Once a day 1 tablet Albuterol Sulfate HFA [facility] [address]-73 108 (90 Base) MCG/ACT Inhalation every 4 hrs Feb 19, 2015 2 puffs as needed Minipress [facility] [address]-96 2 MG Orally Once a day qHS 1 capsule Gabapentin [facility] [address]-30 300 MG Orally Three times a day 1 capsule Hydrocodone-Acetaminophen [facility] [address]-55 7.5-325 MG Orally every 4 hrs 1 tablet as needed Procedures Procedure Coding System Code Date Office Visit, Est Pt., Level 3 CPT-4 16780 Apr 30, 2015 Vital Signs Date/Time: Apr 30, 2015 Cardiac Monitoring Heart Rate 66 bpm Weight 200.5 lbs Height 62 in BMI 36.67 Index Blood Pressure Diastolic 70 mmHg Blood Pressure Systolic 112 mmHg Results No Known Results Summary Purpose eClinicalWorks Submission
--- OUTSIDE RECORDS SUMMARY | 2017-08-21 17:31 | XMS REPORT ---
Author Author CLARE WETZEL Organization [facility] Address [address] [place] [address] Care Team Providers Care Director Safety Council Name Role Phone CLARE WETZEL Unavailable PROBLEMS Type Condition ICD9-CM Code CNZ07-EV Code Onset Dates Condition Status SNOMED Code Problem Prediabetes R73.09 Active 4828229 Problem Generalized anxiety disorder F41.1 Active 45656041 Problem Mild intermittent asthma, uncomplicated J45.20 Active 034947820 Problem Bulging of cervical intervertebral disc M50.20 Active 717016747 Problem Hand eczema L30.9 Active 217698409 Problem Other chronic pain G89.29 Active 46751720 Problem Schizoaffective disorder, bipolar type F25.0 Active 07284032 Problem Vaginal burning N94.9 Active 934871645 Problem 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 dental examination Z01.20 Active 917079205 Problem Bulge of cervical disc without myelopathy M50.20 Active 599009013 Problem Lumbar facet arthropathy M46.96 Active 896350605 Problem Hypothyroidism E03.9 Active 10389646 Problem Cervical dysplasia N87.9 Active 77196625 Problem Hypertriglyceridemia E78.1 Active 526326719 ALLERGIES Substance Reaction Event Type Date Status Seroquel leg pain Drug Allergy Aug, Active SOCIAL HISTORY Never Assessed PLAN OF CARE Activity Details Follow Up prn Reason: VITAL SIGNS Height 62 in 2016-08-23 Weight 182.4 lbs 2016-08-23 Temperature 98.0 degrees Fahrenheit 2016-08-23 Heart Rate 74 bpm 2016-08-23 Respiratory Rate 20 2016-08-23 BMI 33.36 kg/m2 2016-08-23 Blood pressure systolic 130 mmHg 2016-08-23 Blood pressure diastolic 90 mmHg 2016-08-23 MEDICATIONS Medication Instructions Dosage Frequency Start Date End Date Duration Status Albuterol Sulfate HFA 108 (90 Base) MCG/ACT Inhalation every 4 hrs 2 puffs as needed 4h Feb, Active Dramamine Active Minipress 2 MG Orally Once a day qHS 1 capsule Active Bactroban 2 % Externally Two times a day 1 application to affected area 12h Aug, Aug, 15 days Active Pravastatin Sodium 20 MG Orally Once a day 1 tablet 24h 30 Active Fluticasone Propionate 50 MCG/ACT Nasally Once a day 1 spray in each nostril 24h Aug, 30 day(s) Active Invega Sustenna 39 MG/0.25ML 0.5 ml Active RESULTS No Results PROCEDURES No Known procedures IMMUNIZATIONS No Known Immunizations MEDICAL (GENERAL) HISTORY [...]
--- OUTSIDE RECORDS SUMMARY | 2017-08-21 17:31 | XMS REPORT ---
Author Author TIFFANY NICHOLS Organization [employer]Works Address Unknown Phone Unavailable Care Team Providers Care Waredresser Name Role Phone TIFFANY NICHOLS Unavailable Allergies [...]
--- OUTSIDE RECORDS SUMMARY | 2017-08-21 17:31 | XMS REPORT ---
Author Author NED WELLS [facility] Address [address] [place] [address] Care Team Providers Care Law Firm Partner Name Role Phone NED WELLS Unavailable PROBLEMS Type Condition ICD9-CM Code UIC42-VL Code Onset Dates Condition Status SNOMED Code Problem Prediabetes R73.09 Active 0133417 Problem Generalized anxiety disorder F41.1 Active 10433602 Problem Mild intermittent asthma, uncomplicated J45.20 Active 511540089 Problem Bulging of cervical intervertebral disc M50.20 Active 385534452 Problem Hand eczema L30.9 Active 447487759 Problem Other chronic pain G89.29 Active 46801504 Problem Schizoaffective disorder, bipolar type F25.0 Active 90760119 Problem Vaginal burning N94.9 Active 549428367 Problem 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 dental examination Z01.20 Active 106122573 Problem Bulge of cervical disc without myelopathy M50.20 Active 355853807 Problem Lumbar facet arthropathy M46.96 Active 733947990 Problem Hypothyroidism E03.9 Active 85293570 Problem Cervical dysplasia N87.9 Active 16165482 Problem Hypertriglyceridemia E78.1 Active 960058456 ALLERGIES Substance Reaction Event Type Date Status Seroquel leg pain Drug Allergy October, Active SOCIAL HISTORY Never Assessed PLAN OF CARE Activity Details Follow Up First Available Reason:Restorative UR VITAL SIGNS Heart Rate 68 bpm 2016-10-18 Blood pressure systolic 112 mmHg 2016-10-18 Blood pressure diastolic 78 mmHg 2016-10-18 MEDICATIONS Medication Instructions Dosage Frequency Start Date End Date Duration Status Pravastatin Sodium 20 MG Orally Once a day 1 tablet 24h 30 Active Albuterol Sulfate HFA 108 (90 Base) MCG/ACT Inhalation every 4 hrs 2 puffs as needed 4h Feb, Active Invega Sustenna 39 MG/0.25ML 0.5 ml Active RESULTS No Results PROCEDURES Procedure Date Ordered Result Body Site COMP ORAL EVALUATION - NEW/EST PT October 18, 2016 INTRAORL-PERIAPICAL 1 FILM 17229 October 18, 2016 TOPICAL FLUORIDE VARNISH October 18, 2016 PROPHYLAXIS - ADULT October 18, 2016 INTRAORL-PERIAPICAL EA ADD FILM October 18, 2016 INTRAORL-PERIAPICAL EA ADD FILM October 18, 2016 PANORAMIC FILM SEE ALSO CODE 24505 October 18, 2016 BITEWINGS - FOUR FILMS October 18, 2016 IMMUNIZATIONS No Known Immunizations MEDICAL (GENERAL) [...] History [facility] unit 03/2016 Hospitalization History [place] x 30 days
--- OUTSIDE RECORDS SUMMARY | 2017-08-21 17:31 | XMS REPORT ---
Author Author LIN MALHOTRA [facility] Address [address] [place] [address] Care Team Providers Care Summer Law Associate Name Role Phone MARYA LIN Unavailable PROBLEMS Type Condition ICD9-CM Code NUR40-BG Code Onset Dates Condition Status SNOMED Code Problem Prediabetes R73.09 Active 8910741 Problem Generalized anxiety disorder F41.1 Active 79537418 Problem Mild intermittent asthma, uncomplicated J45.20 Active 665424842 Problem Bulging of cervical intervertebral disc M50.20 Active 748944553 Problem Hand eczema L30.9 Active 342289365 Problem Other chronic pain G89.29 Active 57790055 Problem Schizoaffective disorder, bipolar type F25.0 Active 61278396 Problem Vaginal burning N94.9 Active 588703816 Problem 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 dental examination Z01.20 Active 085417611 Problem Bulge of cervical disc without myelopathy M50.20 Active 921621584 Problem Lumbar facet arthropathy M46.96 Active 551640007 Problem Hypothyroidism E03.9 Active 60671505 Problem Cervical dysplasia N87.9 Active 83853417 Problem Hypertriglyceridemia E78.1 Active 903232436 ALLERGIES Substance Reaction Event Type Date Status Seroquel leg pain Drug Allergy Aug, Active SOCIAL HISTORY Never Assessed PLAN OF CARE Activity Details Follow Up prn Reason: VITAL SIGNS Height 62 in 2016-08-17 Weight 182.0 lbs 2016-08-17 Temperature 98.4 degrees Fahrenheit 2016-08-17 Heart Rate 84 bpm 2016-08-17 Respiratory Rate 18 2016-08-17 BMI 33.28 kg/m2 2016-08-17 Blood pressure systolic 130 mmHg 2016-08-17 Blood pressure diastolic 80 mmHg 2016-08-17 MEDICATIONS Medication Instructions Dosage Frequency Start Date End Date Duration Status Ibuprofen 600 MG 1 Tablet by Po route 3 times per day for pain 8h 30 Active Invega Sustenna 39 MG/0.25ML 0.5 ml Active Tessalon Perles 100 MG Orally Three times a day 1 capsule as needed 8h 01 Mar, 2017 2017 10 days Active Minipress 2 MG Orally Once a day qHS 1 capsule Active Fluticasone Propionate 50 MCG/ACT Nasally Once a day 1 spray in each nostril 24h Aug, 30 day(s) Active Albuterol Sulfate HFA 108 (90 Base) MCG/ACT Inhalation every 4 hrs 2 puffs as needed 4h Feb, Active Pravastatin Sodium 20 MG Orally Once a day 1 tablet 24h 30 Active PredniSONE 20 MG Orally Once a day 2 tablet 24h 24 Jul, 2016 Aug, 5 days Active Debrox 6.5 % 5-10 drops in left ear twice daily for up to 4 days Feb Active RESULTS No Results PROCEDURES No Known [...]
--- OUTSIDE RECORDS SUMMARY | 2017-08-21 17:31 | XMS REPORT ---
Author Author KAMILLA GARCIA Organization [facility] Address [address] [place] [address] Care Team Providers Care Rural Sociologist Name Role Phone KAMILLA GARCIA Unavailable PROBLEMS Type Condition ICD9-CM Code LYH62-OT Code Onset Dates Condition Status SNOMED Code Problem Hypertriglyceridemia E78.1 Active 642363506 Problem Prediabetes R73.09 Active 8368646 Problem Mild intermittent asthma, uncomplicated J45.20 Active 994658579 Problem Cervical dysplasia N87.9 Active 08965199 Problem Bulge of cervical disc without myelopathy M50.20 Active 463912626 Problem Lumbar facet arthropathy M46.96 Active 358584163 Problem Vaginal burning N94.9 Active 952046681 Problem 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 dental examination Z01.20 Active 481700957 Problem Generalized anxiety disorder F41.1 Active 81950317 Problem Hypothyroidism E03.9 Active 56397546 Problem Other chronic pain G89.29 Active 70193202 Problem Schizoaffective disorder, bipolar type F25.0 Active 77388392 ALLERGIES Unknown Allergies SOCIAL HISTORY No smoking Hx information available PLAN OF CARE Activity Details Follow Up 3 Weeks Reason:BH F/U VITAL SIGNS MEDICATIONS Medication Instructions Dosage Frequency Start Date End Date Duration Status Minipress 2 MG Orally Once a day qHS 1 capsule Active Albuterol Sulfate HFA 108 (90 Base) MCG/ACT Inhalation every 4 hrs 2 puffs as needed 4h Feb, Active Ibuprofen 600 MG 1 Tablet by Po route 3 times per day for pain 8h 30 Active Pravastatin Sodium 20 MG Orally Once a day 1 tablet 24h 30 Active Haloperidol 5 MG Orally Twice a day 1 tablet 12h Active Invega Sustenna 39 MG/0.25ML 0.5 ml Active RESULTS No Results PROCEDURES Procedure Date Ordered Related Diagnosis Body Site Psych diagnostic evaluation, established patient Jun 02, 2016 IMMUNIZATIONS No Known Immunizations
--- OUTSIDE RECORDS SUMMARY | 2017-08-21 17:31 | XMS REPORT ---
Author Author ADELA VILLAFUERTE Organization [facility] Address [address] [place] [address] Care Team Providers Care Soundscriber Mechanic Name Role Phone ADELA VILLAFUERTE Unavailable PROBLEMS Type Condition ICD9-CM Code MHZ41-AA Code Onset Dates Condition Status SNOMED Code Problem Hypertriglyceridemia E78.1 Active 311088201 Problem Prediabetes R73.09 Active 0794208 Problem Mild intermittent asthma, uncomplicated J45.20 Active 192110980 Problem Cervical dysplasia N87.9 Active 50791158 Problem Bulge of cervical disc without myelopathy M50.20 Active 744824022 Problem Lumbar facet arthropathy M46.96 Active 595114551 Problem Vaginal burning N94.9 Active 984233237 Problem 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 dental examination Z01.20 Active 795033295 Problem Generalized anxiety disorder F41.1 Active 05172268 Problem Hypothyroidism E03.9 Active 31348201 Problem Other chronic pain G89.29 Active 00791354 Problem Schizoaffective disorder, bipolar type F25.0 Active 19970927 ALLERGIES Unknown Allergies SOCIAL HISTORY No smoking Hx information available PLAN OF CARE VITAL SIGNS MEDICATIONS Medication Instructions Dosage Frequency Start Date End Date Duration Status Pravastatin Sodium 20 mg Orally Once a day 1 tablet 24h 30 Active RESULTS No Results PROCEDURES No Known procedures IMMUNIZATIONS No Known Immunizations
--- OUTSIDE RECORDS SUMMARY | 2017-08-21 17:31 | XMS REPORT ---
Author Author TIFFANY NICHOLS Organization eClinicalWorks Address Unknown Phone Unavailable Care Team Providers Care Senior Buyer Planner Name Role Phone TIFFANY NICHOLS Unavailable Allergies [...] Start Date End Date Status Dosage Alprazolam [facility] [address]-25 0.5 MG Orally 1times a day PRN anxiety MUST LAST 30 DAYS November 07, 2014 1 tablet Results No Known Results Summary Purpose eClinicalWorks Submission
--- OUTSIDE RECORDS SUMMARY | 2017-08-21 17:31 | XMS REPORT ---
Author Author ADELA VILLAFUERTE [facility] eClinicalWorks Address Unknown Phone Unavailable Care Team Providers Care Drilling Field Professional Name Role Phone ADELA VILLAFUERTE CP Unavailable [...]
--- OUTSIDE RECORDS SUMMARY | 2017-08-21 17:31 | XMS REPORT ---
Author Author ADELA VILLAFUERTE [facility] eClinicalWorks Address Unknown Phone Unavailable Care Team Providers Care Dialysis Rn Name Role Phone ADELA VILLAFUERTE CP Unavailable [...] Instructions Start Date End Date Status Dosage Synthroid [facility] [address]-34 75 MCG Orally Once a day 1 tablet Results No Known Results Summary Purpose eClinicalWorks Submission
--- OUTSIDE RECORDS SUMMARY | 2017-08-21 17:32 | XMS REPORT ---
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 Medications Medication Code System Code Instructions Start Date End Date Status Dosage Ibuprofen [facility] [address]-74 600 MG Three times a day August 19, 2014 1 Tablet by Po route 3 times per day for pain Invega Sustenna [facility] [address]-90 234 mg/1.5 mL Intramuscular Once a month September 03, 2014 inject 1.5 milliliters (234 mg) by intramuscular route once a month Albuterol Sulfate HFA [facility] [address]-56 108 (90 Base) MCG/ACT Inhalation every 4 hrs Feb 19, 2015 2 puffs as needed Minipress [facility] [address]-38 2 MG Orally Once a day qHS 1 capsule Alprazolam [facility] [address]-59 0.5 MG Orally 1times a day PRN anxiety MUST LAST 30 DAYS November 07, 2014 1 tablet Depo-Provera [facility] [address]-33 Jul 16, 2013 by intramuscular route Zyrtec Allergy [facility] [address]-97 10 MG Orally Once a day 1 tablet as needed Gabapentin [facility] [address]-89 300 MG Orally Three times a day 1 capsule Lexapro [facility] [address]-02 20 MG Orally Once a day May 23, 2014 1 tablet Procedures Procedure Coding System Code Date Office Visit, Est Pt., Level 3 CPT-4 85102 Mar 03, 2015 Vital Signs Date/Time: Mar 03, 2015 Temperature 98.0 F Weight 196.4 lbs Height 62 in BMI 35.92 Index Blood Pressure Diastolic 92 mmHg Blood Pressure Systolic 122 mmHg Cardiac Monitoring Heart Rate 92 bpm Results No Known Results Summary Purpose eClinicalWorks Submission
--- OUTSIDE RECORDS SUMMARY | 2017-08-21 17:32 | XMS REPORT ---
Author Author ADELA VILLAFUERTE [facility] eClinicalWorks Address Unknown Phone Unavailable Care Team Providers Care Instructor Psychiatric Aide Name Role Phone ADELA VILLAFUERTE CP Unavailable [...]
--- OUTSIDE RECORDS SUMMARY | 2017-08-21 17:32 | XMS REPORT ---
Author Author TIFFANY NICHOLS Organization [employer] Address Unknown Phone Unavailable Care Team Providers Care Regional Sales Director Name Role Phone TIFFANY NICHOLS Unavailable [...]
--- OUTSIDE RECORDS SUMMARY | 2017-08-21 17:32 | XMS REPORT ---
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 Medications Medication Code System Code Instructions Start Date End Date Status Dosage Albuterol Sulfate HFA [facility] [address]-54 108 (90 Base) MCG/ACT Inhalation every 4 hrs Feb 19, 2015 2 puffs as needed Invega Sustenna [facility] [address]-01 234 mg/1.5 mL Intramuscular Once a month September 03, 2014 inject 1.5 milliliters (234 mg) by intramuscular route once a month Alprazolam [facility] [address]-26 0.5 MG Orally 2 times a day PRN anxiety MUST LAST 30 DAYS November 07, 2014 1 tablet Minipress [facility] [address]-24 2 MG Orally Once a day qHS 1 capsule Zyrtec Allergy [facility] [address]-71 10 MG Orally Once a day 1 tablet as needed Depo-Provera [facility] [address]-71 Jul 16, 2013 by intramuscular route Debrox [facility] [address]-68 6.5 % Otic Feb 19, 2015 5-10 drops in left ear twice daily for up to 4 days Lexapro [facility] [address]-67 10 MG Orally Once a day May 23, 2014 1 tablet Synthroid [facility] [address]-85 75 MCG Orally Once a day November 21, 2014 1 tablet Gabapentin [facility] [address]-42 300 MG Orally Three times a day 1 capsule Ibuprofen [facility] [address]-29 600 MG Three times a day August 19, 2014 1 Tablet by Po route 3 times per day for pain Procedures Procedure Coding System Code Date Office Visit, Est Pt., Level 3 CPT-4 45311 Feb 19, 2015 EAR IRRIGATION CPT-4 47275 Feb 19, 2015 Vital Signs Date/Time: Feb 19, 2015 Temperature 97.4 F Weight 195.1 lbs Height 62 in BMI 35.68 Index Blood Pressure Diastolic 94 mmHg Blood Pressure Systolic 138 mmHg Cardiac Monitoring Heart Rate 88 bpm Results No Known Results Summary Purpose [employer] Submission
--- OUTSIDE RECORDS SUMMARY | 2017-08-21 17:32 | XMS REPORT ---
Author Author TIFFANY NICHOLS Organization [employer] Address Unknown Phone Unavailable Care Team Providers Care Concrete Hopper Operator Name Role Phone TIFFANY NICHOLS Unavailable [...]
--- OUTSIDE RECORDS SUMMARY | 2017-08-21 17:32 | XMS REPORT ---
Author Author LIN MALHOTRA [facility] Address [address] [place] [address] Care Team Providers Care Substation Operator Apprentice Name Role Phone MARYA LIN Unavailable PROBLEMS Type Condition ICD9-CM Code [id number] Code Onset Dates Condition Status SNOMED Code Problem Prediabetes R73.09 Active 1091491 Problem Generalized anxiety disorder F41.1 Active 67642637 Problem Mild intermittent asthma, uncomplicated J45.20 Active 880739871 Problem Bulging of cervical intervertebral disc M50.20 Active 158108918 Problem Hand eczema L30.9 Active 571365755 Problem Other chronic pain G89.29 Active 83343992 Problem Schizoaffective disorder, bipolar type F25.0 Active 44096332 Problem Vaginal burning N94.9 Active 400142088 Problem 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 dental examination Z01.20 Active 358515821 Problem Bulge of cervical disc without myelopathy M50.20 Active 893952955 Problem Lumbar facet arthropathy M46.96 Active 922512142 Problem Hypothyroidism E03.9 Active 11017502 Problem Cervical dysplasia N87.9 Active 86180652 Problem Hypertriglyceridemia E78.1 Active 230129295 ALLERGIES Substance Reaction Event Type Date Status Seroquel leg pain Drug Allergy Aug, Active SOCIAL HISTORY Never Assessed PLAN OF CARE VITAL SIGNS Height 62 in 2016-08-31 Weight 177.8 lbs 2016-08-31 Temperature 98.4 degrees Fahrenheit 2016-08-31 Heart Rate 84 bpm 2016-08-31 Respiratory Rate 18 2016-08-31 BMI 32.52 kg/m2 2016-08-31 Blood pressure systolic 126 mmHg 2016-08-31 Blood pressure diastolic 80 mmHg 2016-08-31 MEDICATIONS Medication Instructions Dosage Frequency Start Date End Date Duration Status Pravastatin Sodium 20 MG Orally Once a day 1 tablet 24h 30 Active Dramamine Active Lexapro 20 MG Orally Once a day 1 tablet 24h May, Active Minipress 2 MG Orally Once a day qHS 1 capsule Active Bactroban 2 % Externally Two times a day 1 application to affected area 12h Aug, Aug, 15 days Active Naproxen 250 MG Orally Twice a day 1 tablet 12h Aug, Sep, 30 day(s) Active Invega Sustenna 39 MG/0.25ML 0.5 ml Active Albuterol Sulfate HFA 108 (90 Base) MCG/ACT Inhalation every 4 hrs 2 puffs as needed 4h Feb, Active Fluticasone Propionate 50 MCG/ACT Nasally Once a day 1 spray in each nostril 24h Aug, 30 day(s) Active RESULTS No Results PROCEDURES Procedure Date Ordered Result Body Site TORADOL (IM) 60 MG/2ML (UP TO 15 MG) August 31, 2016 THER/PROPH/DIAG INJ, SC/IM August 31, 2016 IMMUNIZATIONS Vaccine Route Administration Date Status TORADOL (IM) 60 MG/2ML (UP TO 15 MG) IM Intramuscular August 31, 2016 Administered MEDICAL (GENERAL) HISTORY Type Description Date Medical [...]
--- OUTSIDE RECORDS SUMMARY | 2017-08-21 17:32 | XMS REPORT ---
Author Author ADELA VILLAFUERTE [facility] [employer] Address Unknown Phone Unavailable Care Team Providers Care Life Enrichment Director Name Role Phone ADELA VILLAFUERTE Unavailable Allergies [...] Start Date End Date Status Dosage Ibuprofen [facility] [address]-51 600 MG Three times a day August 19, 2014 1 Tablet by Po route 3 times per day for pain Results No Known Results Summary Purpose [employer] Submission
--- OUTSIDE RECORDS SUMMARY | 2017-08-21 17:32 | XMS REPORT ---
Author Author ADELA VILLAFUERTE Organization [facility] Address [address] [place] [address] Care Team Providers Care Hay Farmer Name Role Phone ADELA VILLAFUERTE Unavailable PROBLEMS Type Condition ICD9-CM Code [id number] Code Onset Dates Condition Status SNOMED Code Problem Cervical dysplasia N87.9 Active 73659112 Problem Hypothyroidism E03.9 Active 96987489 Problem Prediabetes R73.09 Active 7210443 Problem Lumbar facet arthropathy M46.96 Active 707106363 Problem Bulge of cervical disc without myelopathy M50.20 Active 230208720 Problem Mild intermittent asthma, uncomplicated J45.20 Active 096814166 Problem Hypertriglyceridemia E78.1 Active 789434502 ALLERGIES Unknown Allergies SOCIAL HISTORY No smoking Hx information available PLAN OF CARE VITAL SIGNS MEDICATIONS Medication Instructions Dosage Frequency Start Date End Date Duration Status Diflucan 150 MG Orally Once a day 1 tablet 24h May, 1 dose Active RESULTS No Results PROCEDURES No Known procedures IMMUNIZATIONS No Known Immunizations
--- OUTSIDE RECORDS SUMMARY | 2017-08-21 17:32 | XMS REPORT ---
Author Author ADELA VILLAFUERTE Organization [facility] Address [address] [place] [address] Care Team Providers Care Equity Sales Assistant Name Role Phone CHRISTO ADELA Unavailable PROBLEMS Type Condition ICD9-CM Code [id number] Code Onset Dates Condition Status SNOMED Code Assessment Well woman exam Z01.419 May, Active 716964556 Problem Cervical dysplasia N87.9 Active 07240619 Assessment STD exposure Z20.2 May, Active 722851701 Problem Hypothyroidism E03.9 Active 47120511 Problem Prediabetes R73.09 Active 8204746 Problem Lumbar facet arthropathy M46.96 Active 712541239 Problem Bulge of cervical disc without myelopathy M50.20 Active 323948168 Problem Mild intermittent asthma, uncomplicated J45.20 Active 890903382 Problem Hypertriglyceridemia E78.1 Active 859707175 ALLERGIES Substance Reaction Event Type Date Status Seroquel leg pain Drug Allergy May, Active SOCIAL HISTORY No smoking Hx information available PLAN OF CARE Activity Details Pending Test GC/CHLAM PROBE (STATE) Pending Test SYPHILIS (STATE) Pending Test HIV (STATE) 1 Year,Reason: VITAL SIGNS Height 62 in 2016-05-27 Weight 166 lbs 2016-05-27 Heart Rate 90 bpm 2016-05-27 Respiratory Rate 18 2016-05-27 BMI 30.36 kg/m2 2016-05-27 Blood pressure systolic 130 mmHg 2016-05-27 Blood pressure diastolic 80 mmHg 2016-05-27 MEDICATIONS Medication Instructions Dosage Frequency Start Date End Date Duration Status Zyrtec Allergy 10 MG Orally Once a day 1 tablet as needed 24h Active Albuterol Sulfate HFA 108 (90 Base) MCG/ACT Inhalation every 4 hrs 2 puffs as needed 4h Feb, Active Minipress 2 MG Orally Once a day qHS 1 capsule Active Haloperidol 5 MG Orally Twice a day 1 tablet 12h Active Lexapro 20 MG Orally Once a day 1 tablet 24h May, Active Invega Sustenna 39 MG/0.25ML 0.5 ml Active Pravastatin Sodium 20 MG Orally Once a day 1 tablet 24h 30 Active Ibuprofen 600 MG 1 Tablet by Po route 3 times per day for pain 8h 30 Active RESULTS Name Result Date Reference Range TRICHOMONAS (IN HOUSE) 2016-05-27 TRICHOMONAS negative Control + Lot # [id number] Exp date 04/2017 BACTERIAL VAGINOSIS (IN HOUSE) 2016-05-27 RESULTS negative Control + Lot # [id number] Exp date 01/2017 HEP C ANTIBODY 2016-05-27 Hep C Virus Ab <0.1 0.0-0.9 CULTURE, GENITAL 2016-05-27 Genital Culture, Routine Final report Result 1 Yeast isolated. Result 2 GC/CHLAM PROBE (STATE) 2016-05-27 CHLAMYDIA Neg GC Neg SYPHILIS (STATE) 2016-05-27 HIV (STATE) 2016-05-27 PROCEDURES Procedure Date Ordered Related Diagnosis Body Site LAB NOT BILLED [facility] May 27, 2016 No Charge May 27, 2016 Preventive Care Est Pt. Age 18-39 May 27, 2016 MOULTON VAG, DNA, DIR PROBE May 27, 2016 VENIPUNCT, ROUTINE* May 27, 2016 IMMUNIZATIONS No Known Immunizations
--- OUTSIDE RECORDS SUMMARY | 2017-08-21 17:33 | XMS REPORT ---
Author Author TIFFANY NICHOLS Organization [employer] Address Unknown Phone Unavailable Care Team Providers Care Head Counselor Name Role Phone TIFFANY NICHOLS Unavailable Allergies [...]
--- OUTSIDE RECORDS SUMMARY | 2017-08-21 17:33 | XMS REPORT ---
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
--- OUTSIDE RECORDS SUMMARY | 2017-08-21 17:33 | XMS REPORT ---
Author Author ADELA VILLAFUERTE Organization [employer] Address Unknown Phone Unavailable Care Team Providers Care E Merchant Name Role Phone ADELA VILLAFUERTE CP Unavailable [...]
--- OUTSIDE RECORDS SUMMARY | 2017-08-21 17:34 | XMS REPORT | Continuity of Care Document ---
Author Author [facility] Address Unknown Phone Unavailable Allergies Active Description Code Type Severity Reaction Onset Reported/Identified Relationship to Patient Clinical Status Yes No Known Drug Allergies [id number] Drug Allergy Unknown N/A 02/08/2012 Yes Seroquel 25 mg tablet Drug Allergy N/A N/A 05/23/2014 Medications There is no data. Problems Date Dx Coded Attending Type Code Diagnosis Diagnosed By 12/18/2009 691.8 DERMATITIS ATOPIC ECZEMA 12/18/2009 ROSALVA LOVE DDS 691.8 DERMATITIS ATOPIC ECZEMA 12/18/2009 CHRISTIANO PERALES APRN 691.8 DERMATITIS ATOPIC ECZEMA 12/18/2009 ADELA VILLAFUERTE MD 691.8 DERMATITIS ATOPIC ECZEMA 12/18/2009 RADHA HAY, KAMILLA Galarza 691.8 DERMATITIS ATOPIC ECZEMA 12/18/2009 SIMONE GUIDANCE CONSULTANT, TIFFANY 691.8 DERMATITIS ATOPIC ECZEMA 12/18/2009 SIMONE GUIDANCE CONSULTANT, TIFFANY 691.8 DERMATITIS ATOPIC ECZEMA 12/18/2009 LANDRY MA MD 691.8 DERMATITIS ATOPIC ECZEMA 12/18/2009 LANDRY MA MD 691.8 DERMATITIS ATOPIC ECZEMA 12/18/2009 RADHA HAY, KAMILLA Galarza 691.8 DERMATITIS ATOPIC ECZEMA 12/18/2009 SIMONE GUIDANCE CONSULTANT, TIFFANY 691.8 DERMATITIS ATOPIC ECZEMA 12/18/2009 ARTURO MASON DO 691.8 DERMATITIS ATOPIC ECZEMA 12/18/2009 RADHA HAY, KAMILLA Galarza 691.8 DERMATITIS ATOPIC ECZEMA 12/18/2009 SIMONE GUIDANCE CONSULTANT, TIFFANY 691.8 DERMATITIS ATOPIC ECZEMA 12/18/2009 SIMONE GUIDANCE CONSULTANT, TIFFANY 691.8 DERMATITIS ATOPIC ECZEMA 12/18/2009 SIMONE GUIDANCE CONSULTANT, TIFFANY 691.8 DERMATITIS ATOPIC ECZEMA 12/18/2009 SIMONE GUIDANCE CONSULTANT, TIFFANY 691.8 DERMATITIS ATOPIC ECZEMA 12/18/2009 SIMONE GUIDANCE CONSULTANT, TIFFANY 691.8 DERMATITIS ATOPIC ECZEMA 12/18/2009 SIMONE GUIDANCE CONSULTANT, TIFFANY 691.8 DERMATITIS ATOPIC ECZEMA 12/18/2009 SIMONE GUIDANCE CONSULTANT, TIFFANY 691.8 DERMATITIS ATOPIC ECZEMA 12/18/2009 SIMONE GUIDANCE CONSULTANT, TIFFANY 691.8 DERMATITIS ATOPIC ECZEMA 12/18/2009 SIMONE GUIDANCE CONSULTANT, TIFFANY 691.8 DERMATITIS ATOPIC ECZEMA 12/18/2009 ANTHONY GUIDANCE CONSULTANT, JUSTIN R 691.8 DERMATITIS ATOPIC ECZEMA 12/18/2009 ANTHONY GUIDANCE CONSULTANT, JUSTIN R 691.8 DERMATITIS ATOPIC ECZEMA 12/18/2009 ANTHONY GUIDANCE CONSULTANT, JUSTIN R 691.8 DERMATITIS ATOPIC ECZEMA 12/18/2009 SIMONE GUIDANCE CONSULTANT, TIFFANY 691.8 DERMATITIS ATOPIC ECZEMA 02/24/2010 278.00 OBESITY, UNSPECIFIED 02/24/2010 IVAN DDS, ROSALVA N 278.00 OBESITY, UNSPECIFIED 02/24/2010 COREY LOMAX GUIDANCE CONSULTANT, CHRISTIANO N 278.00 OBESITY, UNSPECIFIED 02/24/2010 CHRISTO TORRES, ADELA Mcclellan 278.00 OBESITY, UNSPECIFIED 02/24/2010 RADHA PHD, KAMILLA A 278.00 OBESITY, UNSPECIFIED 02/24/2010 SIMONE GUIDANCE CONSULTANT, TIFFANY 278.00 OBESITY, UNSPECIFIED 02/24/2010 SIMONE GUIDANCE CONSULTANT, TIFFANY 278.00 OBESITY, UNSPECIFIED 02/24/2010 ANIL TORRES, LANDRY 278.00 OBESITY, UNSPECIFIED 02/24/2010 ANIL TORRES, LANDRY 278.00 OBESITY, UNSPECIFIED 02/24/2010 RADHA PHD, KAMILLA A 278.00 OBESITY, UNSPECIFIED 02/24/2010 SIMONE GUIDANCE CONSULTANT, TIFFANY 278.00 OBESITY, UNSPECIFIED 02/24/2010 ARTURO MASON DO 278.00 OBESITY, UNSPECIFIED 02/24/2010 RADHA PHD, KAMILLA A 278.00 OBESITY, UNSPECIFIED 02/24/2010 SIMONE GUIDANCE CONSULTANT, TIFFANY 278.00 OBESITY, UNSPECIFIED 02/24/2010 SIMONE GUIDANCE CONSULTANT, TIFFANY 278.00 OBESITY, UNSPECIFIED 02/24/2010 SIMONE GUIDANCE CONSULTANT, TIFFANY 278.00 OBESITY, UNSPECIFIED 02/24/2010 SIMONE GUIDANCE CONSULTANT, TIFFANY 278.00 OBESITY, UNSPECIFIED 02/24/2010 SIMONE GUIDANCE CONSULTANT, TIFFANY 278.00 OBESITY, UNSPECIFIED 02/24/2010 SIMONE GUIDANCE CONSULTANT, TIFFANY 278.00 OBESITY, UNSPECIFIED 02/24/2010 SIMONE GUIDANCE CONSULTANT, TIFFANY 278.00 OBESITY, UNSPECIFIED 02/24/2010 SIMONE GUIDANCE CONSULTANT, TIFFANY 278.00 OBESITY, UNSPECIFIED 02/24/2010 SIMONE GUIDANCE CONSULTANT, TIFFANY 278.00 OBESITY, UNSPECIFIED 02/24/2010 ANTHONY GUIDANCE CONSULTANT, JUSTIN R 278.00 OBESITY, UNSPECIFIED 02/24/2010 ANTHONY GUIDANCE CONSULTANT, JUSTIN R 278.00 OBESITY, UNSPECIFIED 02/24/2010 ANTHONY GUIDANCE CONSULTANT, JUSTIN R 278.00 OBESITY, UNSPECIFIED 02/24/2010 SIMONE GUIDANCE CONSULTANT, TIFFANY 278.00 OBESITY, UNSPECIFIED 03/18/2010 622.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 03/18/2010 V72.31 ROUTINE GYNECOLOGICAL EXAMINATION 03/18/2010 IVAN VERAS, ROSALVA N 622.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 03/18/2010 IVAN DDS, ROSALVA N V72.31 ROUTINE GYNECOLOGICAL EXAMINATION 03/18/2010 NICOLE CASHERO GUIDANCE CONSULTANT, CHRISTIANO N 622.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 03/18/2010 NICOLE CASHERO GUIDANCE CONSULTANT, CHRISTIANO N V72.31 ROUTINE GYNECOLOGICAL EXAMINATION 03/18/2010 CHRISTO TORRES, ADELA N 622.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 03/18/2010 ADELA VILLAFUERTE MD N V72.31 ROUTINE GYNECOLOGICAL EXAMINATION 03/18/2010 RADHA HAY, KAMILLA A 622.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 03/18/2010 RADHA HAY, KAMILLA A V72.31 ROUTINE GYNECOLOGICAL EXAMINATION 03/18/2010 SIMONE GUIDANCE CONSULTANT, TIFFANY 622.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 03/18/2010 SIMONE GUIDANCE CONSULTANT, TIFFANY V72.31 ROUTINE GYNECOLOGICAL EXAMINATION 03/18/2010 SIMONE GUIDANCE CONSULTANT, TIFFANY 622.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 03/18/2010 SIMONE GUIDANCE CONSULTANT, TIFFANY V72.31 ROUTINE GYNECOLOGICAL EXAMINATION 03/18/2010 LANDRY MA MD 622.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 03/18/2010 LANDRY MA MD V72.31 ROUTINE GYNECOLOGICAL EXAMINATION 03/18/2010 LANDRY MA MD 622.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 03/18/2010 LANDRY MA MD V72.31 ROUTINE GYNECOLOGICAL EXAMINATION 03/18/2010 RADHA HAY, KAMILLA Galarza 622.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 03/18/2010 RADHA HAY, KAMILLA Galarza V72.31 ROUTINE GYNECOLOGICAL EXAMINATION 03/18/2010 SIMONE GUIDANCE CONSULTANT, TIFFANY 622.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 03/18/2010 SIMONE GUIDANCE CONSULTANT, TIFFANY V72.31 ROUTINE GYNECOLOGICAL EXAMINATION 03/18/2010 MASON DOARTURO K 622.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 03/18/2010 MASON DO, ARTURO K V72.31 ROUTINE GYNECOLOGICAL EXAMINATION 03/18/2010 RADHA HAY, KAMILLA Galarza 622.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 03/18/2010 RADHA HAY, KAMILLA Galarza V72.31 ROUTINE GYNECOLOGICAL EXAMINATION 03/18/2010 SIMONE GUIDANCE CONSULTANT, TIFFANY 622.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 03/18/2010 SIMONE GUIDANCE CONSULTANT, TIFFANY V72.31 ROUTINE GYNECOLOGICAL EXAMINATION 03/18/2010 SIMONE GUIDANCE CONSULTANT, TIFFANY 622.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 03/18/2010 SIMONE GUIDANCE CONSULTANT, TIFFANY V72.31 ROUTINE GYNECOLOGICAL EXAMINATION 03/18/2010 SIMONE GUIDANCE CONSULTANT, TIFFANY 622.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 03/18/2010 SIMONE GUIDANCE CONSULTANT, TIFFANY V72.31 ROUTINE GYNECOLOGICAL EXAMINATION 03/18/2010 SIMONE GUIDANCE CONSULTANT, TIFFANY 622.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 03/18/2010 SIMONE GUIDANCE CONSULTANT, TIFFANY V72.31 ROUTINE GYNECOLOGICAL EXAMINATION 03/18/2010 SIMONE GUIDANCE CONSULTANT, TIFFANY 622.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 03/18/2010 SIMONE GUIDANCE CONSULTANT, TIFFANY V72.31 ROUTINE GYNECOLOGICAL EXAMINATION 03/18/2010 SIMONE GUIDANCE CONSULTANT, TIFFANY 622.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 03/18/2010 SIMONE GUIDANCE CONSULTANT, TIFFANY V72.31 ROUTINE GYNECOLOGICAL EXAMINATION 03/18/2010 SIMONE GUIDANCE CONSULTANT, TIFFANY 622.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 03/18/2010 SIMONE GUIDANCE CONSULTANT, TIFFANY V72.31 ROUTINE GYNECOLOGICAL EXAMINATION 03/18/2010 SIMONE GUIDANCE CONSULTANT, TIFFANY 622.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 03/18/2010 SIMONE GUIDANCE CONSULTANT, TIFFANY V72.31 ROUTINE GYNECOLOGICAL EXAMINATION 03/18/2010 SIMONE GUIDANCE CONSULTANT, TIFFANY 622.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 03/18/2010 SIMONE GUIDANCE CONSULTANT, TIFFANY V72.31 ROUTINE GYNECOLOGICAL EXAMINATION 03/18/2010 ANTHONY GUIDANCE CONSULTANT, JUSTIN R 622.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 03/18/2010 ANTHONY GUIDANCE CONSULTANT, JUSTIN R V72.31 ROUTINE GYNECOLOGICAL EXAMINATION 03/18/2010 ANTHONY GUIDANCE CONSULTANT, JUSTIN R 622.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 03/18/2010 ANTHONY GUIDANCE CONSULTANT, JUSTIN R V72.31 ROUTINE GYNECOLOGICAL EXAMINATION 03/18/2010 ANTHONY GUIDANCE CONSULTANT, JUSTIN R 622.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 03/18/2010 ANTHONY GUIDANCE CONSULTANT, JUSTIN R V72.31 ROUTINE GYNECOLOGICAL EXAMINATION 03/18/2010 SIMONE GUIDANCE CONSULTANT, TIFFANY 622.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 03/18/2010 SIMONE GUIDANCE CONSULTANT, TIFFANY V72.31 ROUTINE GYNECOLOGICAL EXAMINATION 02/14/2012 Ot 233.1 CA IN SITU CERVIX UTERI 09/16/2012 Ot 845.00 SPRAIN OF ANKLE NOS 09/16/2012 Ot 959.7 LOWER LEG INJURY NOS 09/16/2012 Ot E000.8 OTHER EXTERNAL CAUSE STATUS 09/16/2012 Ot E849.0 ACCIDENT IN HOME 09/16/2012 Ot E880.9 FALL ON STAIR/STEP NEC 07/16/2013 COREY LOMAX APRN, CHRISTIANO N 346.90 MIGRAINE UNSPECIFIED WITHOUT MENTION OF INTRACTABLE MIGRAINE WITHOUT MENTION OF STATUS MIGRAINOSUS 07/16/2013 ADELA VILLAFUERTE MD N 346.90 MIGRAINE UNSPECIFIED WITHOUT MENTION OF INTRACTABLE MIGRAINE WITHOUT MENTION OF STATUS MIGRAINOSUS 07/16/2013 RADHA HAY, KAMILLA Galarza 346.90 MIGRAINE UNSPECIFIED WITHOUT MENTION OF INTRACTABLE MIGRAINE WITHOUT MENTION OF STATUS MIGRAINOSUS 07/16/2013 SIMONE GUIDANCE CONSULTANTSHIRA McclellanTIFFANY 346.90 MIGRAINE UNSPECIFIED WITHOUT MENTION OF INTRACTABLE MIGRAINE WITHOUT MENTION OF STATUS MIGRAINOSUS 07/16/2013 SIMONE GUIDANCE CONSULTANTSHIRA McclellanTIFFANY 346.90 MIGRAINE UNSPECIFIED WITHOUT MENTION OF INTRACTABLE MIGRAINE WITHOUT MENTION OF STATUS MIGRAINOSUS 07/16/2013 LANDRY MA MD 346.90 MIGRAINE UNSPECIFIED WITHOUT MENTION OF INTRACTABLE MIGRAINE WITHOUT MENTION OF STATUS MIGRAINOSUS 07/16/2013 LANDRY MA MD 346.90 MIGRAINE UNSPECIFIED WITHOUT MENTION OF INTRACTABLE MIGRAINE WITHOUT MENTION OF STATUS MIGRAINOSUS 07/16/2013 KAMILLA GARCIA PHD A 346.90 MIGRAINE UNSPECIFIED WITHOUT MENTION OF INTRACTABLE MIGRAINE WITHOUT MENTION OF STATUS MIGRAINOSUS 07/16/2013 SIMONE GUIDANCE CONSULTANT, TIFFANY 346.90 MIGRAINE UNSPECIFIED WITHOUT MENTION OF INTRACTABLE MIGRAINE WITHOUT MENTION OF STATUS MIGRAINOSUS 07/16/2013 MARLON VILLAFUERTE, ARTURO Macy 346.90 MIGRAINE UNSPECIFIED WITHOUT MENTION OF INTRACTABLE MIGRAINE WITHOUT MENTION OF STATUS MIGRAINOSUS 07/16/2013 KAMILLA GARCIA PHD A 346.90 MIGRAINE UNSPECIFIED WITHOUT MENTION OF INTRACTABLE MIGRAINE WITHOUT MENTION OF STATUS MIGRAINOSUS 07/16/2013 SIMONE GUIDANCE CONSULTANT, TIFFANY 346.90 MIGRAINE UNSPECIFIED WITHOUT MENTION OF INTRACTABLE MIGRAINE WITHOUT MENTION OF STATUS MIGRAINOSUS 07/16/2013 SIMONE GUIDANCE CONSULTANT, TIFFANY 346.90 MIGRAINE UNSPECIFIED WITHOUT MENTION OF INTRACTABLE MIGRAINE WITHOUT MENTION OF STATUS MIGRAINOSUS 07/16/2013 SIMONE GUIDANCE CONSULTANT, TIFFANY 346.90 MIGRAINE UNSPECIFIED WITHOUT MENTION OF INTRACTABLE MIGRAINE WITHOUT MENTION OF STATUS MIGRAINOSUS 07/16/2013 SIMONE GUIDANCE CONSULTANT, TIFFANY 346.90 MIGRAINE UNSPECIFIED WITHOUT MENTION OF INTRACTABLE MIGRAINE WITHOUT MENTION OF STATUS MIGRAINOSUS 07/16/2013 SIMONE GUIDANCE CONSULTANT, TIFFANY 346.90 MIGRAINE UNSPECIFIED WITHOUT MENTION OF INTRACTABLE MIGRAINE WITHOUT MENTION OF STATUS MIGRAINOSUS 07/16/2013 SIMONE GUIDANCE CONSULTANT, TIFFANY 346.90 MIGRAINE UNSPECIFIED WITHOUT MENTION OF INTRACTABLE MIGRAINE WITHOUT MENTION OF STATUS MIGRAINOSUS 07/16/2013 SIMONE GUIDANCE CONSULTANT, TIFFANY 346.90 MIGRAINE UNSPECIFIED WITHOUT MENTION OF INTRACTABLE MIGRAINE WITHOUT MENTION OF STATUS MIGRAINOSUS 07/16/2013 SIMONE GUIDANCE CONSULTANT, TIFFANY 346.90 MIGRAINE UNSPECIFIED WITHOUT MENTION OF INTRACTABLE MIGRAINE WITHOUT MENTION OF STATUS MIGRAINOSUS 07/16/2013 SIMONE GUIDANCE CONSULTANT, TIFFANY 346.90 MIGRAINE UNSPECIFIED WITHOUT MENTION OF INTRACTABLE MIGRAINE WITHOUT MENTION OF STATUS MIGRAINOSUS 07/16/2013 ANTHONY GUIDANCE CONSULTANT, JUSTIN R 346.90 MIGRAINE UNSPECIFIED WITHOUT MENTION OF INTRACTABLE MIGRAINE WITHOUT MENTION OF STATUS MIGRAINOSUS 07/16/2013 ANTHONY GUIDANCE CONSULTANT, JUSTIN R 346.90 MIGRAINE UNSPECIFIED WITHOUT MENTION OF INTRACTABLE MIGRAINE WITHOUT MENTION OF STATUS MIGRAINOSUS 07/16/2013 ANTHONY MENDEZN, JUSTIN R 346.90 MIGRAINE UNSPECIFIED WITHOUT MENTION OF INTRACTABLE MIGRAINE WITHOUT MENTION OF STATUS MIGRAINOSUS 07/16/2013 SIMONE GUIDANCE CONSULTANT, TIFFANY 346.90 MIGRAINE UNSPECIFIED WITHOUT MENTION OF INTRACTABLE MIGRAINE WITHOUT MENTION OF STATUS MIGRAINOSUS 09/06/2013 SIMONE GUIDANCE CONSULTANT, TIFFANY 300.00 AN ANXIETY UNSPEC 09/06/2013 SIMONE GUIDANCE CONSULTANT, TIFFANY 300.00 AN ANXIETY UNSPEC 09/06/2013 LANDRY MA MD 300.00 AN ANXIETY UNSPEC 09/06/2013 LANDRY MA MD 300.00 AN ANXIETY UNSPEC 09/06/2013 RADHA HAY, KAMILLA Galarza 300.00 AN ANXIETY UNSPEC 09/06/2013 SIMONE GUIDANCE CONSULTANT, TIFFANY 300.00 AN ANXIETY UNSPEC 09/06/2013 ARTURO MASON DO 300.00 AN ANXIETY UNSPEC 09/06/2013 RADHA PHD, KAMILLA Galarza 300.00 AN ANXIETY UNSPEC 09/06/2013 SIMONE GUIDANCE CONSULTANT, TIFFANY 300.00 AN ANXIETY UNSPEC 09/06/2013 SIMONE GUIDANCE CONSULTANT, TIFFANY 300.00 AN ANXIETY UNSPEC 09/06/2013 SIMONE GUIDANCE CONSULTANT, TIFFANY 300.00 AN ANXIETY UNSPEC 09/06/2013 SIMONE GUIDANCE CONSULTANT, TIFFANY 300.00 AN ANXIETY UNSPEC 09/06/2013 SIMONE GUIDANCE CONSULTANT, TIFFANY 300.00 AN ANXIETY UNSPEC 09/06/2013 SIMONE GUIDANCE CONSULTANT, TIFFANY 300.00 AN ANXIETY UNSPEC 09/06/2013 SIMONE GUIDANCE CONSULTANT, TIFFANY 300.00 AN ANXIETY UNSPEC 09/06/2013 SIMONE GUIDANCE CONSULTANT, TIFFANY 300.00 AN ANXIETY UNSPEC 09/06/2013 SIMONE GUIDANCE CONSULTANT, TIFFANY 300.00 AN ANXIETY UNSPEC 09/06/2013 ANTHONY WILKINS JUSTIN R 300.00 AN ANXIETY UNSPEC 09/06/2013 ANTHONY WILKINS JUSTIN R 300.00 AN ANXIETY UNSPEC 09/06/2013 ANTHONY WILKINS JUSTIN R 300.00 AN ANXIETY UNSPEC 09/06/2013 SIMONE GUIDANCE CONSULTANT, TIFFANY 300.00 AN ANXIETY UNSPEC 09/17/2013 RADHA HAY, KAMILLA Galarza 300.00 AN ANXIETY UNSPEC 09/17/2013 SIMONE GUIDANCE CONSULTANT, TIFFANY 300.00 AN ANXIETY UNSPEC 09/17/2013 SIMONE GUIDANCE CONSULTANT, TIFFANY 300.00 AN ANXIETY UNSPEC 09/17/2013 LANDRY MA MD 300.00 AN ANXIETY UNSPEC 09/17/2013 LANDRY MA MD 300.00 AN ANXIETY UNSPEC 09/17/2013 RADHA HAY, KAMILLA Galarza 300.00 AN ANXIETY UNSPEC 09/17/2013 SIMONE GUIDANCE CONSULTANT, TIFFANY 300.00 AN ANXIETY UNSPEC 09/17/2013 ARTURO MASON DO 300.00 AN ANXIETY UNSPEC 09/17/2013 RADHA PHD, KAMILLA A 300.00 AN ANXIETY UNSPEC 09/17/2013 SIMONE GUIDANCE CONSULTANT, TIFFANY 300.00 AN ANXIETY UNSPEC 09/17/2013 SIMONE GUIDANCE CONSULTANT, TIFFANY 300.00 AN ANXIETY UNSPEC 09/17/2013 SIMONE GUIDANCE CONSULTANT, TIFFANY 300.00 AN ANXIETY UNSPEC 09/17/2013 SIMONE GUIDANCE CONSULTANT, TIFFANY 300.00 AN ANXIETY UNSPEC 09/17/2013 SIMONE GUIDANCE CONSULTANT, TIFFANY 300.00 AN ANXIETY UNSPEC 09/17/2013 SIMONE GUIDANCE CONSULTANT, TIFFANY 300.00 AN ANXIETY UNSPEC 09/17/2013 SIMONE GUIDANCE CONSULTANT, TIFFANY 300.00 AN ANXIETY UNSPEC 09/17/2013 SIMONE GUIDANCE CONSULTANT, TIFFANY 300.00 AN ANXIETY UNSPEC 09/17/2013 SIMONE GUIDANCE CONSULTANT, TIFFANY 300.00 AN ANXIETY UNSPEC 09/17/2013 ANTHONY GUIDANCE CONSULTANT, JUSTIN R 300.00 AN ANXIETY UNSPEC 09/17/2013 ANTHONY GUIDANCE CONSULTANT, JUSTIN R 300.00 AN ANXIETY UNSPEC 09/17/2013 ANTHONY GUIDANCE CONSULTANT JUSTIN R 300.00 AN ANXIETY UNSPEC 09/17/2013 SIMONE GUIDANCE CONSULTANT, TIFFANY 300.00 AN ANXIETY UNSPEC 11/22/2013 SIMONE GUIDANCE CONSULTANT, TIFFANY 295.70 P SCHIZO AFFECTIVE 11/22/2013 ARTURO MASON DO 295.70 P SCHIZO AFFECTIVE 11/22/2013 RADHA PHD, KAMILLA A 295.70 P SCHIZO AFFECTIVE 11/22/2013 SIMONE GUIDANCE CONSULTANT, TIFFANY 295.70 P SCHIZO AFFECTIVE 11/22/2013 SIMONE GUIDANCE CONSULTANT, TIFFANY 295.70 P SCHIZO AFFECTIVE 11/22/2013 SMIONE GUIDANCE CONSULTANT, TIFFANY 295.70 P SCHIZO AFFECTIVE 11/22/2013 SIMONE GUIDANCE CONSULTANT, TIFFANY 295.70 P SCHIZO AFFECTIVE 11/22/2013 SIMONE GUIDANCE CONSULTANT, TIFFANY 295.70 P SCHIZO AFFECTIVE 11/22/2013 SIMONE GUIDANCE CONSULTANT, TIFFANY 295.70 P SCHIZO AFFECTIVE 11/22/2013 SIMONE GUIDANCE CONSULTANT, TIFFANY 295.70 P SCHIZO AFFECTIVE 11/22/2013 SIMONE GUIDANCE CONSULTANT, TIFFANY 295.70 P SCHIZO AFFECTIVE 11/22/2013 SIMONE GUIDANCE CONSULTANT, TIFFANY 295.70 P SCHIZO AFFECTIVE 11/22/2013 ANTHONY WILKINS JUSTIN R 295.70 P SCHIZO AFFECTIVE 11/22/2013 ANTHONY GUIDANCE CONSULTANT, JUSTIN R 295.70 P SCHIZO AFFECTIVE 11/22/2013 ANTHONY GUIDANCE CONSULTANT, JUSTIN R 295.70 P SCHIZO AFFECTIVE 11/22/2013 SIMONE GUIDANCE CONSULTANT, TIFFANY 295.70 P SCHIZO AFFECTIVE 01/06/2014 SMIONE GUIDANCE CONSULTANT, TIFFANY 300.82 SO SOMATOFORM NOS 01/06/2014 SIMONE GUIDANCE CONSULTANT, TIFFANY 300.9 PSYCHIATRIC DISORDERS 01/06/2014 SIMONE GUIDANCE CONSULTANT, TIFFANY 300.82 SO SOMATOFORM NOS 01/06/2014 SIMONE GUIDANCE CONSULTANT, TIFFANY 300.9 PSYCHIATRIC DISORDERS 01/06/2014 SIMONE GUIDANCE CONSULTANT, TIFFANY 300.82 SO SOMATOFORM NOS 01/06/2014 SIMONE GUIDANCE CONSULTANT, TIFFANY 300.9 PSYCHIATRIC DISORDERS 01/06/2014 SIMONE GUIDANCE CONSULTANT, TIFFANY 300.82 SO SOMATOFORM NOS 01/06/2014 SIMONE GUIDANCE CONSULTANT, TIFFANY 300.9 PSYCHIATRIC DISORDERS 01/06/2014 SIMONE GUIDANCE CONSULTANT, TIFFANY 300.82 SO SOMATOFORM NOS 01/06/2014 SIMONE GUIDANCE CONSULTANT, TIFFANY 300.9 PSYCHIATRIC DISORDERS 01/06/2014 SIMONE GUIDANCE CONSULTANT, TIFFANY 300.82 SO SOMATOFORM NOS 01/06/2014 SIMONE GUIDANCE CONSULTANT, TIFFANY 300.9 PSYCHIATRIC DISORDERS 01/06/2014 SIMONE GUIDANCE CONSULTANT, TIFFANY 300.82 SO SOMATOFORM NOS 01/06/2014 SIMONE GUIDANCE CONSULTANT, TIFFANY 300.9 PSYCHIATRIC DISORDERS 01/06/2014 SIMONE GUIDANCE CONSULTANT, TIFFANY 300.82 SO SOMATOFORM NOS 01/06/2014 SIMONE GUIDANCE CONSULTANT, TIFFANY 300.9 PSYCHIATRIC DISORDERS 01/06/2014 SIMONE GUIDANCE CONSULTANT, TIFFANY 300.82 SO SOMATOFORM NOS 01/06/2014 SIMONE GUIDANCE CONSULTANT, TIFFANY 300.9 PSYCHIATRIC DISORDERS 01/06/2014 ANTHONY GUIDANCE CONSULTANT, JUSTIN R 300.82 SO SOMATOFORM NOS 01/06/2014 ANTHONY GUIDANCE CONSULTANT, JUSTIN R 300.9 PSYCHIATRIC DISORDERS 01/06/2014 ANTHONY GUIDANCE CONSULTANT, JUSTIN R 300.82 SO SOMATOFORM NOS 01/06/2014 ANTHONY GUIDANCE CONSULTANT, JUSTIN R 300.9 PSYCHIATRIC DISORDERS 01/06/2014 ANTHONY GUIDANCE CONSULTANT, JUSTIN R 300.82 SO SOMATOFORM NOS 01/06/2014 ANTHONY GUIDANCE CONSULTANT, JUSTIN R 300.9 PSYCHIATRIC DISORDERS 01/06/2014 SIMONE GUIDANCE CONSULTANT, TIFFANY 300.82 SO SOMATOFORM NOS 01/06/2014 SIMONE GUIDANCE CONSULTANT, TIFFANY 300.9 PSYCHIATRIC DISORDERS 02/06/2014 SIMONE GUIDANCE CONSULTANT, TIFFANY 295.10 P SCHIZO DISORG UNSPECIFIED 02/06/2014 SIMONE GUIDANCE CONSULTANT, TIFFANY 295.10 P SCHIZO DISORG UNSPECIFIED 02/06/2014 SIMONE GUIDANCE CONSULTANT, TIFFANY 295.10 P SCHIZO DISORG UNSPECIFIED 02/06/2014 SIMONE GUIDANCE CONSULTANT, TIFFANY 295.10 P SCHIZO DISORG UNSPECIFIED 02/06/2014 SIMONE GUIDANCE CONSULTANT, TIFFANY 295.10 P SCHIZO DISORG UNSPECIFIED 02/06/2014 SIMONE GUIDANCE CONSULTANT, TIFFANY 295.10 P SCHIZO DISORG UNSPECIFIED 02/06/2014 SIMONE GUIDANCE CONSULTANT, TIFFANY 295.10 P SCHIZO DISORG UNSPECIFIED 02/06/2014 SIMONE GUIDANCE CONSULTANT, TIFFANY 295.10 P SCHIZO DISORG UNSPECIFIED 02/06/2014 ANTHONY WILKINS JUSTIN R 295.10 P SCHIZO DISORG UNSPECIFIED 02/06/2014 ANTHONY WILKINS JUSTIN R 295.10 P SCHIZO DISORG UNSPECIFIED 02/06/2014 ANTHONY WILKINS JUSTIN R 295.10 P SCHIZO DISORG UNSPECIFIED 02/06/2014 SIMONE GUIDANCE CONSULTANT, TIFFANY 295.10 P SCHIZO DISORG UNSPECIFIED 05/23/2014 SIMONE GUIDANCE CONSULTANT, TIFFANY 307.42 PERSISTENT DISORDER OF INITIATING OR MAINTAINING SLEEP 05/23/2014 SIMONE WILKINS, TIFFANY 307.42 PERSISTENT DISORDER OF INITIATING OR MAINTAINING SLEEP 05/23/2014 SIMONE WILKINS, TIFFANY 307.42 PERSISTENT DISORDER OF INITIATING OR MAINTAINING SLEEP 05/23/2014 ANTHONY WILKINS JUSTIN R 307.42 PERSISTENT DISORDER OF INITIATING OR MAINTAINING SLEEP 05/23/2014 ANTHONY WILKINS JUSTIN R 307.42 PERSISTENT DISORDER OF INITIATING OR MAINTAINING SLEEP 05/23/2014 ANTHONY WILKINS JUSTIN R 307.42 PERSISTENT DISORDER OF INITIATING OR MAINTAINING SLEEP 05/23/2014 SIMONE GUIDANCE CONSULTANT, TIFFANY 307.42 PERSISTENT DISORDER OF INITIATING OR MAINTAINING SLEEP 07/11/2014 SIMONE WILKINS TIFFANY 300.01 AN PANIC DIS W/O AGORA 07/11/2014 ANTHONY GUIDANCE CONSULTANT, JUSTIN R 300.01 AN PANIC DIS W/O AGORA 07/11/2014 ANTHONY GUIDANCE CONSULTANT, JUSTIN R 300.01 AN PANIC DIS W/O AGORA 07/11/2014 ANTHONY GUIDANCE CONSULTANT, JUSTIN R 300.01 AN PANIC DIS W/O AGORA 07/11/2014 SIMONE WILKINS TIFFANY 300.01 AN PANIC DIS W/O AGORA 08/19/2014 ANTHONY MENDEZN, JUSTIN R 724.1 PAIN IN THORACIC SPINE 08/19/2014 ANTHONY GUIDANCE CONSULTANT, JUSTIN R V74.5 STD SCREEN 08/19/2014 ANTHONY GUIDANCE CONSULTANT, JUSTIN R 724.1 PAIN IN THORACIC SPINE 08/19/2014 ANTHONY GUIDANCE CONSULTANT, JUSTIN R V74.5 STD SCREEN 08/19/2014 ANTHONY MENDEZN, JUSTIN R 724.1 PAIN IN THORACIC SPINE 08/19/2014 ANTHONY MENDEZN, JUSTIN R V74.5 STD SCREEN 08/19/2014 SIMONE WILKINS, TIFFANY 724.1 PAIN IN THORACIC SPINE 08/19/2014 SIMONE WILKINS TIFFANY V74.5 STD SCREEN 09/11/2014 ANTHONY WILKINS, JUSTIN R 723.1 CERVICALGIA 09/11/2014 ANTHONY MENDEZN, JUSTIN R 724.2 LUMBAGO/ LOW BACK PAIN 09/11/2014 ANTHONY MENDEZN, JUSTIN R 723.1 CERVICALGIA 09/11/2014 ANTHONY MENDEZN, JUSTIN R 724.2 LUMBAGO/ LOW BACK PAIN 09/11/2014 ANTHONY WILKINS, JUSTIN R 723.1 CERVICALGIA 09/11/2014 ANHTONY WILKINS, JUSTIN R 724.2 LUMBAGO/ LOW BACK PAIN 09/11/2014 SIMONE WILKINS, TIFFANY 723.1 CERVICALGIA 09/11/2014 SIMONE WILKINS, TIFFANY 724.2 LUMBAGO/ LOW BACK PAIN 10/20/2014 Ot 622.12 10/20/2014 Ot V72.63 10/20/2014 Ot V74.8 10/20/2014 MAICOL TORRES, MANJIT Fernandez Ot 242.90 10/24/2014 JUSTIN CRUZ APRN Ot 721.3 10/24/2014 JUSTIN CRUZ R GUIDANCE CONSULTANT Ot 722.0 11/13/2014 Ot 622.12 11/13/2014 Ot V72.63 11/13/2014 Ot V74.8 11/13/2014 MAICOL TORRES, MANJIT L Ot 242.90 11/13/2014 JUSTIN CRUZ R GUIDANCE CONSULTANT Ot 721.3 11/13/2014 JUSTIN CRUZ R GUIDANCE CONSULTANT Ot 722.0 11/13/2014 VIOLETA BRYSON MD Ot 295.90 SCHIZOPHRENIA NOS-UNSPEC 11/13/2014 VIOLETA BRYSON MD Ot 300.00 ANXIETY STATE NOS 11/13/2014 VIOLETA BRYSON MD Ot 305.1 TOBACCO USE DISORDER 11/13/2014 VIOLETA BRYSON MD Ot 311 DEPRESSIVE DISORDER NEC 11/13/2014 VIOLETA BRYSON MD Ot 722.0 CERVICAL DISC DISPLACMNT 12/08/2014 JUSTIN CRUZ R GUIDANCE CONSULTANT Ot 721.3 12/08/2014 JUSTIN CRUZ GUIDANCE CONSULTANT Ot 722.0 03/10/2015 Ot 622.12 03/10/2015 Ot V72.63 03/10/2015 Ot V74.8 03/10/2015 MAICOL TORRES, MANJIT Fernandez Ot 242.90 03/10/2015 JUSTIN CRUZ R GUIDANCE CONSULTANT Ot 721.3 03/10/2015 JUSTIN CRUZ R GUIDANCE CONSULTANT Ot 722.0 03/20/2015 DEVORAH BANEGAS JUNIOR SALES REPRESENTATIVE Ot 625.9 03/31/2015 DEVORAH BANEGAS JUNIOR SALES REPRESENTATIVE Ot 625.9 04/23/2015 Ot 622.12 04/23/2015 Ot V72.63 04/23/2015 Ot V74.8 04/23/2015 MAICOL TORRES, MANJIT Fernandez Ot 242.90 04/23/2015 JUSTIN CRUZ R GUIDANCE CONSULTANT Ot 721.3 04/23/2015 JUSTIN CRUZ R GUIDANCE CONSULTANT Ot 722.0 04/23/2015 DEVORAH BANEGAS JUNIOR SALES REPRESENTATIVE Ot 625.9 04/29/2015 VENKAT LOOMIS DO Ot N83.8 OTH NONINFLAMMATORY DISORD OF OVARY, FAL 04/29/2015 VENKAT LOOMIS DO Ot R10.2 PELVIC AND PERINEAL PAIN 04/29/2015 VENKAT LOOMIS DO Ot Z23 ENCOUNTER FOR IMMUNIZATION 04/29/2015 VENKAT LOOMIS DO Ot Z87.410 PERSONAL HISTORY OF CERVICAL DYSPLASIA 05/05/2015 VENKAT LOOMIS DO, Ot N80.9 05/05/2015 LOOMISLea VILLAFUERTE VENKAT Trixie Ot Z01.812 05/05/2015 LOOMISLea VILLAFUERTE VENKAT C Ot Z11.2 07/23/2016 Ot 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 07/23/2016 Ot V72.63 PRE- PROCEDURAL LABORATORY EXAMINATION 07/23/2016 Ot V74.8 SCREEN- BACTERIAL DIS NEC 07/23/2016 MAICOL TORRES, MANJIT Fernandez Ot 242.90 THYROTOX NOS NO CRISIS 07/23/2016 JUSTIN CRUZ GUIDANCE CONSULTANT Ot 721.3 LUMBOSACRAL SPONDYLOSIS 07/23/2016 JUSTIN CRUZ GUIDANCE CONSULTANT Ot 722.0 CERVICAL DISC DISPLACMNT 07/23/2016 DEVORAH BANEGAS Ot 625.9 FEM GENITAL SYMPTOMS NOS 07/23/2016 VENKAT LOOMIS DO Ot N80.9 ENDOMETRIOSIS, UNSPECIFIED 07/23/2016 VLADISLAV VILLAFUERTE VENKAT C Ot Z01.812 ENCOUNTER FOR PREPROCEDURAL LABORATORY E 07/23/2016 VENKAT LOOMIS DO Ot Z11.2 ENCOUNTER FOR SCREENING FOR OTHER BACTER 07/24/2016 DERICK GONZALEZ MD Ot F17.210 NICOTINE DEPENDENCE, CIGARETTES, UNCOMPL 07/24/2016 DERICK GONZALEZ MD Ot F20.9 SCHIZOPHRENIA, UNSPECIFIED 07/24/2016 DERICK GONZALEZ MD Ot F23 BRIEF PSYCHOTIC DISORDER 07/24/2016 DERICK GONZALEZ MD Ot Z79.899 OTHER ASSISTED (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 07/24/2016 DERICK GONZALEZ MD Ot Z91.14 PATIENT'S OTHER NONCOMPLIANCE WITH MEDIC 07/29/2016 DERICK GONZALEZ MD Ot F17.210 NICOTINE DEPENDENCE, CIGARETTES, UNCOMPL 07/29/2016 DERICK GONZALEZ MD Ot F20.9 SCHIZOPHRENIA, UNSPECIFIED 07/29/2016 DERICK GONZALEZ MD Ot F23 BRIEF PSYCHOTIC DISORDER 07/29/2016 DERICK GONZALEZ MD Ot Z79.899 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 07/29/2016 DERICK GONZALEZ MD Ot Z91.14 PATIENT'S OTHER NONCOMPLIANCE WITH MEDIC 10/14/2016 Ot 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 10/14/2016 Ot V72.63 PRE- PROCEDURAL LABORATORY EXAMINATION 10/14/2016 Ot V74.8 SCREEN- BACTERIAL DIS NEC 10/14/2016 MAICOL TORRES, MANJIT Fernandez Ot 242.90 THYROTOX NOS NO CRISIS 10/14/2016 JUSTIN CRUZ GUIDANCE CONSULTANT Ot 721.3 LUMBOSACRAL SPONDYLOSIS 10/14/2016 JUSTIN CRUZ GUIDANCE CONSULTANT Ot 722.0 CERVICAL DISC DISPLACMNT 10/14/2016 DEVORAH BANEGAS JUNIOR SALES REPRESENTATIVE Ot 625.9 FEM GENITAL SYMPTOMS NOS 10/14/2016 VENKAT LOOMIS DO Ot N80.9 ENDOMETRIOSIS, UNSPECIFIED 10/14/2016 VENKAT LOOMIS DO Ot Z01.812 ENCOUNTER FOR PREPROCEDURAL LABORATORY E 10/14/2016 VENKAT LOOMIS DO Ot Z11.2 ENCOUNTER FOR SCREENING FOR OTHER BACTER 10/19/2016 CHRISTO TORRES, ADELA Mcclellan Ot R10.84 GENERALIZED ABDOMINAL PAIN 10/28/2016 CHRISTO TORRES, ADELA Mcclellan Ot R10.84 GENERALIZED ABDOMINAL PAIN Procedures Code [place] [address] PSYTX PT&/FAMILY 45 MINUTES 09/18/2013 J2426 Invega Sustenna 234 mg/1.5 mL syringe 09/19/2013 03175 PSYCH DIAGNOSTIC EVALUATION 09/30/2013 83926 THERAPUTIC INJ SQ/IM 10/08/2013 99091 THERAPUTIC INJ SQ/IM 11/06/2013 33436 PSYTX PT&/FAMILY 45 MINUTES 11/14/2013 84020 THERAPUTIC INJ SQ/IM 12/06/2013 13531 PSYTX PT&/FAMILY 45 MINUTES 12/18/2013 66478 THERAPUTIC INJ SQ/IM 01/06/2014 38847 THERAPUTIC INJ SQ/IM 01/09/2014 15451 THERAPUTIC INJ SQ/IM 02/06/2014 03080 THERAPUTIC INJ SQ/IM 2014 69257 THERAPUTIC INJ SQ/IM 04/15/2014 27949 THERAPUTIC INJ SQ/IM 05/21/2014 73398 THERAPUTIC INJ SQ/IM 06/27/2014 29379 XRAY CERVICAL SPINE, 2 OR 3 VIEWS 09/11/2014 93425 XRAY LUMBAR SPINE 2 OR 3 VIEWS 09/11/2014 03998 UA W/ CULTURE IF INDICATED 09/11/2014 39621 THERAPUTIC INJ SQ/IM 10/06/2014 Results Test Result Range Complete urinalysis with reflex to culture - 07/23/16 22:06 Urine color determination YELLOW NRG Urine clarity determination CLEAR NRG Urine pH measurement by test strip 6 5-9 Specific gravity of urine by test strip 1.030 1.016- 1.022 Urine protein assay by test strip, semi-quantitative NEGATIVE NEGATIVE Urine glucose detection by automated test strip NEGATIVE NEGATIVE Erythrocytes detection in urine sediment by light microscopy NEGATIVE NEGATIVE Urine ketones detection by automated test strip NEGATIVE NEGATIVE Urine nitrite detection by test strip NEGATIVE NEGATIVE Urine total bilirubin detection by test strip NEGATIVE NEGATIVE Urine urobilinogen measurement by automated test strip (mass/volume) NORMAL NORMAL Urine leukocyte esterase detection by dipstick NEGATIVE NEGATIVE Automated urine sediment erythrocyte count by microscopy (number/high power field) NONE NRG Automated urine sediment leukocyte count by microscopy (number/high power field ) NONE NRG Bacteria detection in urine sediment by light microscopy TRACE NRG Squamous epithelial cells detection in urine sediment by light microscopy 2-5 NRG Crystals detection in urine sediment by light microscopy NONE NRG Casts detection in urine sediment by light microscopy NONE NRG Mucus detection in urine sediment by light microscopy NEGATIVE NRG Complete urinalysis with reflex to culture NO NRG Urine drug screening test - 07/23/16 22:06 Urine phencyclidine detection by screening method NEGATIVE NEGATIVE Urine benzodiazepines detection by screening method NEGATIVE NEGATIVE Urine cocaine detection NEGATIVE NEGATIVE Urine amphetamines detection by screening method NEGATIVE NEGATIVE Urine methamphetamine detection by screening method NEGATIVE NEGATIVE Urine cannabinoids detection by screening method NEGATIVE NEGATIVE Urine opiates detection by screening method NEGATIVE NEGATIVE Urine barbiturates detection NEGATIVE NEGATIVE Screening urine tricyclic antidepressants detection NEGATIVE NEGATIVE Urine methadone detection by screening method NEGATIVE NEGATIVE Urine oxycodone detection NEGATIVE NEGATIVE Urine propoxyphene detection NEGATIVE NEGATIVE Complete blood count (CBC) with automated white blood cell (WBC) differential - 07/23/16 22:20 Blood leukocytes automated count (number/volume) 15.6 10*3/uL 4.3-11.0 Blood erythrocytes automated count (number/volume) 4.57 10*6/uL 4.35-5.85 Venous blood hemoglobin measurement (mass/volume) 14.3 g/dL 11.5-16.0 Blood hematocrit (volume fraction) 41 % 35-52 Automated erythrocyte mean corpuscular volume 89 [foz_us] 80-99 Automated erythrocyte mean corpuscular hemoglobin (mass per erythrocyte) 31 pg 25-34 Automated erythrocyte mean corpuscular hemoglobin concentration measurement ( mass/volume) 35 g/dL 32-36 Automated erythrocyte distribution width ratio 12.4 % 10.0-14.5 Automated blood platelet count (count/volume) 280 10*3/uL 130-400 Automated blood platelet mean volume measurement 9.2 [foz_us] 7.4-10.4 Automated blood neutrophils/100 leukocytes 65 % 42-75 Automated blood lymphocytes/100 leukocytes 25 % 12-44 Blood monocytes/100 leukocytes 7 % 0-12 Automated blood eosinophils/100 leukocytes 2 % 0-10 Automated blood basophils/100 leukocytes 0 % 0-10 Blood neutrophils automated count (number/volume) 10.1 10*3 1.8-7.8 Blood lymphocytes automated count (number/volume) 4.0 10*3 1.0-4.0 Blood monocytes automated count (number/volume) 1.2 10*3 0.0-1.0 Automated eosinophil count 0.3 10*3/uL 0.0-0.3 Automated blood basophil count (count/volume) 0.0 10*3/uL 0.0-0.1 Comprehensive metabolic panel - 07/23/16 22:20 Serum or plasma sodium measurement (moles/volume) 141 mmol/L 135-145 Serum or plasma potassium measurement (moles/volume) 3.7 mmol/L 3.6-5.0 Serum or plasma chloride measurement (moles/volume) 107 mmol/L 98-107 Carbon dioxide 24 mmol/L 21-32 Serum or plasma anion gap determination (moles/volume) 10 mmol/L 5-14 Serum or plasma urea nitrogen measurement (mass/volume) 15 mg/dL 7-18 Serum or plasma creatinine measurement (mass/volume) 0.84 mg/dL 0.60-1.30 Serum or plasma urea nitrogen/creatinine mass ratio 18 NRG Serum or plasma creatinine measurement with calculation of estimated glomerular filtration rate > NRG Serum or plasma glucose measurement (mass/volume) 102 mg/dL 70-105 Serum or plasma calcium measurement (mass/volume) 9.6 mg/dL 8.5-10.1 Serum or plasma total bilirubin measurement (mass/volume) 0.3 mg/dL 0.1-1.0 Serum or plasma alkaline phosphatase measurement (enzymatic activity/volume) 65 U/L 40-136 Serum or plasma aspartate aminotransferase measurement (enzymatic activity/ volume) 12 U/L 5-34 Serum or plasma alanine aminotransferase measurement (enzymatic activity/volume ) 18 U/L 0-55 Serum or plasma protein measurement (mass/volume) 6.6 g/dL 6.4-8.2 Serum or plasma albumin measurement (mass/volume) 4.3 g/dL 3.2-4.5 Serum or plasma salicylates measurement (mass/volume) - 07/23/16 22:20 Serum or plasma salicylates measurement (mass/volume) < mg/dL 5.0-20.0 Serum or plasma acetaminophen measurement (mass/volume) - 07/23/16 22:20 Serum or plasma acetaminophen measurement (mass/volume) < ug/mL 10-30 Serum or plasma ethanol measurement (mass/volume) - 07/23/16 22:20 Serum or plasma ethanol measurement (mass/volume) < mg/dL <10 Blood manual differential performed detection - 07/23/16 22:20 Blood monocytes/100 leukocytes 8 % NRG Manual blood segmented neutrophils/100 leukocytes 62 % NRG Blood band neutrophils/100 leukocytes 0 % NRG Manual blood lymphocytes/100 leukocytes 28 % NRG Manual eosinophils/100 leukocytes in nose 2 % NRG Manual blood basophils/100 leukocytes 0 % NRG Blood erythrocyte morphology finding identification NORMAL NRG Encounters ACCT No. Visit Date/Time Discharge Status Pt. Type Provider Facility Loc./Unit Complaint [id number] 10/14/2014 09:01:00 10/14/2014 23:59:59 [facility] Outpatient TIFFANY NICHOLS APRN [id number] 10/06/2014 15:00:00 10/06/2014 23:59:59 [facility] Outpatient JUSTIN CRUZ APRN [id number] 09/11/2014 11:46:00 09/11/2014 23:59:59 [facility] Outpatient JUSTIN CRUZ APRN [id number] 09/11/2014 11:46:00 09/11/2014 23:59:59 [facility] Outpatient JUSTIN CRUZ APRN [id number] 07/11/2014 10:31:00 07/11/2014 23:59:59 [facility] Outpatient TIFFANY NICHOLS APRN [id number] 07/11/2014 10:31:00 07/11/2014 23:59:59 CLS Outpatient SIMONE GUIDANCE CONSULTANT, TIFFANY [id number] 06/27/2014 15:39:00 06/27/2014 23:59:59 CLS Outpatient SIMONE GUIDANCE CONSULTANT, TIFFANY [id number] 05/23/2014 10:15:00 05/23/2014 23:59:59 CLS Outpatient SIMONE GUIDANCE CONSULTANT, TIFFANY [id number] 05/21/2014 12:43:00 05/21/2014 23:59:59 CLS Outpatient SIMONE GUIDANCE CONSULTANT, TIFFANY [id number] 04/15/2014 10:13:00 04/15/2014 23:59:59 CLS Outpatient SIMONE GUIDANCE CONSULTANT, TIFFANY [id number] 2014 11:45:00 2014 23:59:59 CLS Outpatient SIMONE GUIDANCE CONSULTANT, TIFFANY [id number] 2014 11:45:00 2014 23:59:59 CLS Outpatient SIMONE GUIDANCE CONSULTANT, TIFFANY [id number] 02/06/2014 10:11:00 02/06/2014 23:59:59 CLS Outpatient SIMONE GUIDANCE CONSULTANT, TIFFANY [id number] 01/06/2014 12:44:00 01/06/2014 23:59:59 CLS Outpatient SIMONE GUIDANCE CONSULTANT, TIFFANY [id number] 12/17/2013 13:46:00 12/17/2013 23:59:59 C[facility] Outpatient KAMILLA GARCIA PHD [id number] 12/06/2013 13:29:00 12/06/2013 23:59:59 [facility] Outpatient MARLON ARTURO VILLAFUERTE Macy [id number] 11/22/2013 13:41:00 11/22/2013 23:59:59 CLS Outpatient SIMONE GUIDANCE CONSULTANT, TIFFANY [id number] 11/13/2013 14:50:00 11/13/2013 23:59:59 [facility] Outpatient KAMILLA GARCIA PHD [id number] 11/06/2013 14:50:00 11/06/2013 23:59:59 CLS Outpatient LANDRY MA MD [id number] 10/08/2013 12:25:00 10/08/2013 23:59:59 CLS Outpatient LANDRY MA MD [id number] 09/19/2013 15:06:00 09/19/2013 23:59:59 CLS Outpatient SIMONE GUIDANCE CONSULTANT, TIFFANY [id number] 09/19/2013 00:00:00 09/19/2013 23:59:59 [facility] Outpatient TIFFANY NICHOLS APRN [id number] 09/17/2013 15:53:00 09/17/2013 23:59:59 [facility] Outpatient KAMILLA GARCIA PHD [id number] 09/11/2013 08:49:00 09/11/2013 23:59:59 CLS Outpatient ADELA VILLAFUERTE MD [id number] 07/16/2013 09:35:00 07/16/2013 23:59:59 CLS Outpatient CHRISTIANO PERALES APRN N [id number] 02/07/2012 14:56:00 02/07/2012 23:59:59 CLS Outpatient IVAN HANDYROSALVA N [id number] 02/07/2012 14:56:00 02/07/2012 23:59:59 CLS Outpatient [id number] 02/24/2017 09:20:00 02/24/2017 23:59:59 CLS Preadmit ADELA VILLAFUERTE MD [facility] RAD M50.20 [id number] 10/18/2016 07:59:00 10/18/2016 23:59:59 CLS Outpatient ADELA VILLAFUERTE MD [facility] RAD R10.84 GENERALIZED ABDOMINAL PAIN [id number] 07/23/2016 21:27:00 07/24/2016 04:10:00 DIS Emergency DERICK GONZALEZ MD [facility] ER MIGRAINE, ALTERED MENTAL STATUS [id number] 04/28/2015 08:25:00 04/29/2015 09:35:00 DIS Outpatient VENKAT LOOMIS DO [facility] SDC CCP,ENDOMETRIOSIS [id number] 04/23/2015 08:00:00 04/23/2015 23:59:59 CLS Outpatient VENKAT LOOMIS DO [facility] PREOP CRONIC PELVIC PAIN, ENDOMETRIOSIS [id number] 03/10/2015 12:33:00 03/10/2015 23:59:59 CLS Outpatient DEVORAH BANEGAS JUNIOR SALES REPRESENTATIVE [facility] RAD PELVIC PAIN [id number] 11/13/2014 10:55:00 11/13/2014 12:43:00 DIS Emergency ADELAIDE TORRES, VIOLETA Cavazos [facility] ER NECK/BACK PAIN [id number] 10/23/2014 12:17:00 10/23/2014 23:59:59 CLS Outpatient JUSTIN CRUZ APRN [facility] RAD NECK PAIN, LUMBAGO W/ SCIATICA [id number] 01/01/2013 12:11:00 01/01/2013 23:59:59 CLS Outpatient MANJIT MILIAN MD [facility] RAD HYPERTHROIDISM [id number] 09/16/2012 11:15:00 Document Registration [id number] 02/14/2012 05:52:00 Document Registration [id number] 02/08/2012 13:33:00 Document Registration
--- NOTE | 2017-08-21 17:57 | ED Integumentary General ---
General Stated Complaint: LEFT HAND WOUND Source: patient Exam Limitations: no limitations History of Present Illness Date Seen by Provider: Aug 21, 2017 Time Seen by Provider: 17:51 Initial Comments To ER with reports of a rash to her middle ring and little finger of the left hand and the ring finger and little finger of the right hand is been present all through replenishment analyst. She saw primary care at the onset of this and was given a prescription for oral steroids which ultimately improved this but it tends to recur. Timing/Duration: other (ongoing for many months) Severity: moderate Location: hands Allergies and Home Medications Allergies Coded Allergies: No Known Drug Allergies (Unverified , 08/15/12) Home Medications Acyclovir 400 Mg Tablet, 400 MG PO TID PRN for COLD SORE OUTBREAK, (Reported) Albuterol Sulfate 6.7 Gm Hfa.aer.ad, 2 PUFF IH Q4H PRN for SHORTNESS OF BREATH, (Reported) Cephalexin 250 Mg Capsule, 250 MG PO QID Prescribed by: VENKAT LOOMIS on 04/29/15833 Docusate Sodium 100 Mg Capsule, 100 MG PO BID PRN for CONSTIPATION Prescribed by: VENKAT LOOMIS on 04/29/15833 Escitalopram Oxalate 20 Mg Tablet, 20 MG PO HS, (Reported) Hydrocodone Bit/Acetaminophen 1 Each Tablet, 1-2 EA PO Q6H PRN for PAIN Prescribed by: VENKAT LOOMIS on 04/29/15833 Ibuprofen 600 Mg Tablet, 600 MG PO TID PRN for PAIN, (Reported) Ibuprofen 600 Mg Tablet, 600 MG PO Q6H Prescribed by: VENKAT LOOMIS on 04/29/15833 Levothyroxine Sodium 75 Mcg Tablet, 75 MCG PO HS, (Reported) Paliperidone Palmitate 234 Mg/1.5 Ml Disp.syrin, 1.5 ML IM MONTHLY, (Reported) Simethicone 80 Mg Tab.chew, 40 MG PO TID PRN for INDIGESTION Prescribed by: VENKAT LOOMIS on 04/29/15833 Patient Home Medication List Home Medication List Reviewed: Yes Constitutional: see HPI EENTM: see HPI Respiratory: no symptoms reported Cardiovascular: no symptoms reported Genitourinary: no symptoms reported Musculoskeletal: see HPI Skin: see HPI Psychiatric/Neurological: No Symptoms Reported Past Gcrndmo-Syppjs-Enstxl Hx Patient Social History Recent Foreign Travel: No Contact w/Someone Who Travel: No Recent Hopitalizations: No Seasonal Allergies Seasonal Allergies: No Surgeries Surgeries: Bladder Surgery Respiratory Respiratory Disorders: Asthma Reproductive System Hx Reproductive Disorders: Yes (CPP,SUDHEER III) Female Reproductive Disorders: Endometriosis Gastrointestinal Gastrointestinal Disorders: Chronic Diarrhea Musculoskeletal Musculoskeletal Disorders: Arthritis, Chronic Back Pain Psychosocial Behavioral Health Disorders: Anxiety, Schizophrenia, Depression Blood Transfusions Adverse Reaction to a Blood Tr: No Family Medical History Significant Family History: No Pertinent Family Hx Family Medial History: Alcoholism 19 FATHER Thyroid disease 19 MOTHER Physical Exam Vital Signs Capillary Refill : General Appearance: WD/WN, no apparent distress HEENT: PERRL/EOMI, normal ENT inspection Neck: non-tender, full range of motion Respiratory: no respiratory distress, no accessory muscle use Neurologic/Psychiatric: alert, normal mood/affect, oriented x 3 Skin: normal color, warm/dry, other (there is thickened skin with seizures over the flexor surface of the middle ring and little finger left hand and to a lesser degree the ring finger and little finger on the right hand. There is no erythema to suggest cellulitis.) Departure Impression Impression: Primary Impression: Eczema of both hands Disposition: 01 HOME, SELF-CARE Condition: Stable Departure-Patient Inst. Decision time for Depature: 17:53 Referrals: ADELA VILLAFUERTE MD (PCP/Family) Primary Care Physician Patient Instructions: Eczema (Atopic Dermatitis) Add. Discharge Instructions: 1. Mixed to creams together and apply a thick layer to the affected areas at bedtime and then apply gloves and where this all night. You may remove it in the morning. Do this for about 7-12 days. Follow-up with your doctor in a few weeks for recheck. Return to ER for any increasing redness or swelling Scripts Mupirocin Calcium (Mupirocin) 15 Gm Cream..g. 1 GM TP BID, #1 TUBE apply to affected fingers twice daily for 7-10 days. Mix together with the clobetasol cream Prov: CONCETTA LOVING APRN 08/21/17 Clobetasol Propionate/Emoll (Clobetasol Emollient 0.05% Crm) 15 Gm Cream..g. 1 GM TP BID for 10 Days, #1 TUBE apply to the affected fingers twice daily for 7-10 days Prov: CONCETTA LOVING APRN 08/21/17 CONCETTA LOVING APRN Aug 21, 2017:57
[2017-08-21] MEDS ORDERED: MUPI15CR11 TP (17:58)
[2017-08-21] MEDS ORDERED: CLOB15CR3 TP (17:58)
[2017-08-21 18:00] VITALS: BP 132/96
== END 2017-08-21 18:00 | disposition home or self-care (01) ==
LOC: EDUNIT# 17:25 → ER 17:26
DX: L30.9 Dermatitis, unspecified (principal); J45.909 Unspecified asthma, uncomplicated; F41.9 Anxiety disorder, unspecified; F20.9 Schizophrenia, unspecified; F32.9 Major depressive disorder, single episode, unspecified; Z79.52 Long term (current) use of systemic steroids; Z87.19 Personal history of other diseases of the digestive system
CPT/HCPCS: 99282

== ENCOUNTER 2017-11-27 13:15 | Outpatient (RCR) | payer MEDICAID ==
[~2017-11-27 13:15] MED LIST changes: +CLOB15CR3 TP; +MUPI15CR11 TP
== END 2017-12-05 15:34 | disposition home or self-care (01) ==
PROVIDERS: ATTEND Family Medicine
DX: M54.2 Cervicalgia (principal); M25.561 Pain in right knee

== ENCOUNTER 2018-01-10 21:44 | Observation (INO) | payer MEDICAID ==
[~2018-01-10] VITALS: Ht 157.5 cm; Wt 98.0 kg
--- OUTSIDE RECORDS SUMMARY | 2018-01-10 21:51 | XMS REPORT ---
Author Author LIN MALHOTRA Organization [facility] Address [address] [place] [address] Care Team Providers Care Clinical Documentation Improvement Specialist Name Role Phone LIN MALHOTRA Unavailable PROBLEMS Type Condition ICD9-CM Code KOD85-ZV Code Onset Dates Condition Status SNOMED Code Problem Hypertriglyceridemia E78.1 Active 776743000 Problem Mild intermittent asthma, uncomplicated J45.20 Active 004120638 Problem Prediabetes R73.09 Active 8524373 Problem Cervical dysplasia N87.9 Active 48155863 Problem Bulge of cervical disc without myelopathy M50.20 Active 434977939 Problem Lumbar facet arthropathy M46.96 Active 293907811 Problem Hypothyroidism E03.9 Active 73283415 Problem Bulging of cervical intervertebral disc M50.20 Active 787047428 Problem Hand eczema L30.9 Active 770750036 Problem Schizoaffective disorder, bipolar type F25.0 Active 56552753 Problem Generalized anxiety disorder F41.1 Active 44669279 Problem Vaginal burning N94.9 Active 537708590 Problem Other chronic pain G89.29 Active 37947140 ALLERGIES Substance Reaction Event Type Date Status Seroquel leg pain Drug Allergy Mar, Active ENCOUNTERS Encounter Location Date Diagnosis [facility] [address] [address] Dec, [facility] [address] [place] [id number] October, Dental examination Z01.20 [facility] [address] [place] [address] 81364- 9215 Sep, [facility] [id number] [place] [address] 54575- 6125 Sep, Hypertriglyceridemia E78.1 [facility] [address] [place] [address] 37859- 7151 Sep, Hypothyroidism E03.9 ; Prediabetes R73.09 ; Mild intermittent asthma, uncomplicated J45.20 ; Bulge of cervical disc without myelopathy M50.20 ; Other chronic pain G89.29 ; Hand eczema L30.9 ; Right anterior knee pain M25.561 ; Hypertriglyceridemia E78.1 and BMI 40.0-44.9, adult Z68.41 [place] [address] [address]- 7188 Sep, [place] [address] [address]01- 1575 Sep, [place] [address] 18648- 2606 Jul, [place] [address] 14707- 4101 May, Acute non-recurrent maxillary sinusitis J01.00 [facility] [address] [address]23 Mar, Other viral agents as the cause of diseases classified elsewhere B97.89 and Acute upper respiratory infection, unspecified J06.9 [place] [address] 81903- 4591 Mar, [place] [address] 84457- 4006 Mar, Neck pain M54.2 [place] [address] 83915- 6762 Feb, Bulge of cervical disc without myelopathy M50.20 [place] [address] 26050- 4705 Feb, Neck pain M54.2 [place] [address] 77986- 8997 Feb, [place] [address] 90537- 2747 Feb, Bulge of cervical disc without myelopathy M50.20 ; Hypertriglyceridemia E78.1 ; Hand eczema L30.9 and Hypothyroidism E03.9 [facility] [address] 74064- 9504 Jan, [facility] [address] [id number] October, 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 dental examination Z01.20 [place] [address] 37742- 8489 Sep, Generalized abdominal pain R10.84 [place] [address] 87199- 9594 Sep, Schizoaffective disorder, bipolar type F25.0 and Generalized anxiety disorder F41.1 [facility] [address] [place] [address]60 -5192 Sep, [facility] [address] [place] [address] 66250 -3195 Sep, Vaginal burning N94.9 and Vaginal mitzi B37.3 [facility] [address] [place] [address] 55224 -4282 Sep, Gastroenteritis K52.9 [facility] [address] [place] [address] 21802 -0988 Sep, Thrush B37.0 [facility] [address] [place] [address] 90689 -5845 Sep, Pharyngitis due to other organism J02.8 [facility] [address] 97491- 5347 Sep, [facility] [address] 28789 -6016 Aug, Cervicalgia M54.2 [place] [address] 16345- 2711 09 Mar, 2017 Hypothyroidism E03.9 ; Dry skin L85.3 ; Plantar fasciitis, bilateral M72.2 and Other chronic pain G89.29 [facility] [address] 44299 -8659 Aug, Abrasion T14.8 [facility] [address] [id number] Aug, Dental examination Z01.20 [facility] [address] [address] Aug, Excessive cerumen in right ear canal H61.21 ; Impacted cerumen of both ears 380.4 and Bronchitis J40 [facility] [address] [address]75 -[address]75 Jul, Bilateral impacted cerumen H61.23 and Acute non-recurrent frontal sinusitis J01.[address] 06382- 9069 May, Schizoaffective disorder, bipolar type F25.0 and Generalized anxiety disorder F41.[address] 83822- 5495 May, [address] 49702- 2117 May, Cervicalgia M54.2 and Hypertriglyceridemia E78.[address] 59965- 0027 May, [address] 21055- 5796 May, STD exposure Z20.2 and Well woman exam Z01.[address] 46905- 6118 May, [address] 31123- 9960 Mar, [address] [place] [address] 7709 Dec, Pain in left knee M25.562 [facility] [address] [address] Dec, [facility] [address] [address] 0[address] Nov, [facility] [id number] [place] [address] 52991- 6141 October, [facility] [address] [place] [address] 23904- 3236 Aug, [facility] [id number] [place] [address] 30180- 8454 Jul, [facility] [id number] [place] [address] 29356- 5867 Jul, [facility] [id number] [place] [address] 00762- 1209 Jul, Plantar fasciitis M72.2 and 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 [facility] [address] [address]- 395[address] Jul, [facility] [address] [address] 4[address] Jun, Plantar fasciitis M72.2 and Physical exam Z00.00 [facility] [address] [address] 0[address] Jun, [facility] [address] [address]- 9347 Jun, [facility] [id number] [address] 1249 Jun, [facility] [address] [address]- 2880 May, [facility] [id number] [place] [address] 70823- 1216 May, Hypertriglyceridemia E78.1 [facility] [id number] [place] [address] 773878- 5130 16 May, 2015 Hypothyroidism E03.9 ; Prediabetes R73.09 and Hypertriglyceridemia E78.1 [facility] [id number] [place] [address] 91799- 4537 11 May, 2015 [facility] [id number] [place] [address] 60690- 7536 May, [facility] [id number] [place] [address] 34897- 0683 May, Hypothyroidism E03.9 ; Prediabetes R73.09 and Hypertriglyceridemia E78.1 [facility] [id number] [place] [address] 59731- 4310 Apr, Schizoaffective disorder, bipolar type F25.0 [facility] [id number] [place] [address] 40998- 6721 Mar, [facility] [id number] [place] [address] 86550- 2765 Mar, [facility] [id number] [place] [address] 91578- 1185 Mar, [facility] [id number] [place] [address] 37350- 7128 30 Feb, 2015 [facility] [id number] [place] [address] 74527- 6958 24 Feb, 2015 [facility] [id number] [place] [address] 36873- 7112 16 Feb, 2015 [facility] [id number] [place] [address] 50947- 4716 15 Feb, 2015 Screen for STD (sexually transmitted disease) V74.5 ; Counseling on other sexually transmitted diseases V65.45 ; Back pain 724.5 ; Contact with or exposure to venereal diseases V01.6 and Pelvic pain in female 625.9 [facility] [address] [place] [address] 19217- 4230 15 Feb, 2015 Schizoaffective disorder, unspecified 295.70 and Anxiety state, unspecified 300.00 [facility] [id number] [place] [address] 41898- 0014 14 Feb, 2015 [facility] [id number] [place] [address] 05578- 7564 10 Feb, 2015 [facility] [id number] [place] [address] 71970- 6313 03 Feb, 2015 Impacted cerumen of both ears 380.4 and Mild intermittent asthma 493.90 [facility] [id number] [place] [address] 61356- 4776 Feb, [facility] [id number] [place] [address] 43808- 9188 Jan, [facility] [id number] [place] [address] 41931- 0037 Jan, [facility] [id number] [place] [address] 90036- 7376 Jan, [facility] [id number] [place] [address] 21398- 9463 Jan, [facility] [address] [place] [address] 04681- 4384 Jan, [facility] [id number] [place] [address] 03303- 8955 Jan, [facility] [id number] [place] [address] 26659- 3386 Jan, [facility] [id number] [place] [address] 33247- 9063 Jan, [facility] [address] [address]- 1935 Jan, [facility] [address] [address]- 5171 Jan, [facility] [address] [address]- 4016 Jan, [facility] [address]339 Dec, Schizoaffective disorder, unspecified 295.70 [facility] [id number] [place] [address] 26110- 6326 Dec, [facility] [address] [address]- 3513 Dec, [facility] [id number] [place] [address] 74288- 8985 Dec, [facility] [id number] [place] [address] 32947- 5936 Dec, [facility] [address] [place] [address] 76397- 7433 Dec, [facility] [address] [address] Dec, Dental examination V72.2 [facility] [address] [address]- 9319 Dec, Schizoaffective disorder, unspecified 295.70 ; Persistent disorder of initiating 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.42 and Anxiety state, unspecified 300.00 [facility] [address] [address]- 4375 Dec, [facility] [address] [address]- 7326 Nov, High risk medication use V58.69 [facility] [address] 9531 Nov, [facility] [address] [address]- 9255 Nov, [facility] [address] [address]- 7165 Nov, High risk medication use V58.69 [facility] [id number] [place] [address] 46479- 3573 Nov, [facility] [id number] [place] [address] 34886- 2074 Nov, [facility] [id number] [place] [address] 48142- 4920 Nov, [facility] [id number] [place] [address] 41317- 1217 Nov, Hypothyroidism 244.9 ; Hypertriglyceridemia 272.1 and Prediabetes 790.29 [facility] [id number] [place] [address] 75779- 4319 Nov, [facility] [id number] [place] [address] 36595- 9405 Nov, [facility] [id number] [place] [address] 32655- 2167 Nov, Bulge of cervical disc without myelopathy 722.0 ; Lumbar facet arthropathy 721.3 ; Family history of stroke V17.1 ; Hyperthyroidism 242.90 and 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 long-term current use of medication V58.69 [facility] [address] [address]- 1811 Nov, [facility] [address] [place] [address] 98957- 9296 October, [facility] [address] [place] [address] 43093- 3637 October, [facility] [id number] [place] [address] 80432- 9902 October, [facility] [address] [address]- 9804 October, [facility] [id number] [place] [address] [id number]- 7130 October, [facility] [address] [address]- 3354 October, [facility] [address]- 7230 October, Schizoaffective disorder, unspecified 295.70 and Persistent disorder of initiating 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.42 [facility] [id number] [place] [address] 14052- 2914 October, Schizoaffective disorder, unspecified 295.70 [facility] [id number] [place] [address] 300998- 9426 October, [facility] [id number] [place] [address] 094167- 3002 October, [facility] [id number] [place] [address] 38859- 4736 October, [facility] [address] [address]- 8724 Sep, Lumbago of lumbar region with sciatica 724.2 and Neck pain 723.1 [facility] [address] [address]- 0798 Sep, [facility] [address] [address]- 4352 Sep, [facility] [address] [address]- 8350 Aug, [facility] [address] [address]- 6989 Aug, [facility] [address]- 7171 Aug, [facility] [address]- 8842 Aug, [facility] [id number] [place] [address] [place] [address]- 9943 24 Aug, 2014 [facility] [place] [facility] [address] [id number] [place] [address]- 6457 24 Aug, 2014 [facility] [place] [facility] [address] [id number] [place] [address]- 6238 20 Aug, 2014 [facility] [place] [facility] [address] [id number] [place] [address]- 8037 20 Aug, 2014 [facility] [place] [facility] [address] [id number] [place] [address]- 2793 19 Aug, 2014 [facility] [place] [facility] [address] [id number] [place] [address]- 6545 19 Aug, 2014 [facility] [place] [facility] [address] [id number] [place] [address]- 6161 18 Aug, 2014 [facility] [place] [facility] [address] [id number] [place] [address]- 0952 18 Aug, 2014 [facility] [place] [facility] [address] [id number] [place] [address]- 1094 18 Aug, 2014 [facility] [place] [facility] [address] [id number] [place] [address]- 0436 18 Aug, 2014 [facility] [place] [facility] [address] [id number] [place] [address]- 4859 16 Aug, 2014 [facility] [place] [facility] [address] [id number] [place] [address]- 1704 12 Aug, 2014 [facility] [place] [facility] [address] [id number] [place] [address]- 5705 12 Aug, 2014 [facility] [place] [facility] [address] [id number] [place] [address]- 2226 12 Aug, 2014 [facility] [place] [facility] [address] [id number] [place] [address]- 1446 12 Aug, 2014 [facility] [place] [facility] [address] [id number] [place] [address]- 7475 09 Aug, 2014 [facility] [place] [facility] [address] [id number] [place] [address]- 1119 09 Aug, 2014 [facility] [place] [facility] [address] [id number] [place] [address]- 6909 06 Aug, 2014 [facility] [place] [facility] [address] [id number] [place] [address]- 1600 05 Aug, 2014 [facility] [place] [facility] [address] [id number] [place] [address]- 9239 04 Aug, 2014 [facility] [place] [facility] [address] [id number] [place] [address]- 4954 04 Aug, 2014 [facility] [place] [facility] [address] [id number] [place] [address]- 2086 Aug, 2014 [facility] [place] [facility] [address] [facility] [id number] [place] [address]- 2259 Aug, 2014 [facility] [place] [facility] [address] [id number] [place] [address]- 3854 27 Jul, 2014 [facility] [place] [facility] [address] [id number] [place] [address]- 9820 27 Jul, 2014 [facility] [place] [facility] [address] [facility] [id number] [place] [address]- 8473 26 Jul, 2014 [facility] [place] [facility] [address] [facility] [id number] [place] [address]- 8974 20 Jul, 2014 [facility] [place] [facility] [address] [id number] [place] [address]- 6751 20 Jul, 2014 [facility] [place] [facility] [address] [id number] [place] [address]- 1451 17 Jul, 2014 [facility] [place] [facility] [address] [id number] [place] [address]- 0772 17 Jul, 2014 [facility] [place] [facility] [address] [facility] [id number] [place]- 1439 16 Jul, 2014 [facility] [place] [facility] [address] [facility] [id number] [place] [address]- 5641 16 Jul, 2014 [facility] [address] [id number] [place] [address]- 2850 Jul, [facility] [place] [facility] [address] [id number] [place] [address]- 4911 Jun, [facility] [address] [id number] [place] [address]- 9343 Jun, [facility] [place] [facility] [address] [id number] [place] [address]- 1620 Jun, [facility] [address] [id number] [place] [address]- 7762 Jun, [facility] [place] [facility] [address] [id number] [place] [address]- 4783 Jun, [facility] [address] [id number] [place] [address]- 7891 Jun, [facility] [address] [id number] [place] [address]- 9501 Jun, [facility] [address] [id number] [place] [address]- 8758 May, [facility] [address] [id number] [place] [address]- 0908 May, [facility] [place] [facility] [address] [id number] [place] [address]- 9478 May, [facility] [place] [facility] [address] [id number] [place] [address]- 8771 May, [facility] [place] [facility] [address] [id number] [place] [address]- 4115 May, [facility] [place] [facility] [address] [id number] [place] [address]- 2637 May, [facility] [place] [facility] [address] [id number] [place] [address]- 7695 May, [facility] [place] [facility] [address] [id number] [place] [address]- 4547 May, [facility] [place] [facility] [address] [id number] [place] [address]- 7255 May, [facility] [place] [facility] [address] [id number] [place] 4342 May, [facility] [place] [facility] [address] [id number] [place] [address]- 8992 Apr, [facility] [place] [facility] [address] [id number] [place] [address]- 0532 Apr, [facility] [place] [facility] [address] [id number] [place] [address]- 0376 Apr, [facility] [place] [facility] [address] [id number] [place] [address]- 8123 Apr, [facility] [place] [facility] [address] [id number] [place] [address]- 5043 Apr, [facility] [place] [facility] [address] [id number] [place] [address]- 5191 Apr, [facility] [place] [facility] [address] [id number] [place] [address]- 5114 Apr, [facility] [place] [facility] [address] [id number] [place] [address]- 0496 Apr, [facility] [place] [facility] [address] [id number] [place] [address] Apr, [facility] [place] [facility] [address] [id number] [place] [address] Mar, [facility] [place] [facility] [address] [id number] [place] [address] Mar, [facility] [place] [facility] [address] [id number] [place] [address] Mar, [facility] [place] [facility] [address] [id number] [place] [address] Mar, [facility] [place] [facility] [address] [id number] [place] [address] Mar, [facility] [place] [facility] [address] [id number] [place] [address] Mar, [facility] [place] [facility] [address] [id number] [place] [address] Mar, [facility] [place] [facility] [address] [id number] [place] [address] Mar, [facility] [place] [facility] [address] [id number] [place] [address] Mar, [facility] [place] [facility] [address] [id number] [place] [address] Mar, [facility] [place] [facility] [address] [id number] [place] [address] Feb, [facility] [place] [facility] [address] [id number] [place] [address] Feb, [facility] [place] [facility] [address] [id number] [place] [address] Feb, [facility] [place] [facility] [address] [id number] [place] [address]797 Feb, [facility] [place] [facility] [address] [id number] [address] Feb, [facility] [place] [facility] [address] [id number] [address] Jan, [facility] [place] [facility] [address] [id number] [place] [address] Jan, [facility] [place] [facility] [address] [id number] [place] [address] 1981 Jan, [facility] [place] [facility] [address] [id number] [place] [address] 65[address] Jan, [facility] [place] [facility] [address] [id number] [place] [address] Jan, [facility] [place] [facility] [address] [id number] [place] [address] Jan, [facility] [place] [facility] [address] [id number] [place] [address] Jan, [facility] [place] [facility] [address] [id number] [place] [address] Jan, [facility] [place] [facility] [address] [id number] [place] [address] Jan, [facility] [place] [facility] [address] [id number] [place] [address] Dec, [facility] [place] [facility] [address] [id number] [place] [address] Dec, [facility] [place] [facility] [address] [id number] [place] [address] Dec, [facility] [place] [facility] [address] [id number] [place] [address] Dec, [facility] [place] [facility] [address] [id number] [place] [address] Dec, [facility] [place] [facility] [address] [id number] [place] [address] Dec, [facility] [place] [facility] [address] [id number] [place] [address] Dec, [facility] [place] [facility] [address] [id number] [place] [address] Dec, [facility] [place] [facility] [address] [id number] [place] [address] Nov, [facility] [place] [facility] [address] [id number] [place] [address] Nov, [facility] [place] [facility] [address] [id number] [place] [address] Nov, [facility] [place] [facility] [address] [id number] [place] [address] Nov, [facility] [place] [facility] [address] [id number] [place] [address] Nov, [facility] [place] [facility] [address] [id number] [place] [address] Nov, [facility] [place] [facility] [address] [id number] [place] [address] Nov, [facility] [place] [facility] [address] [id number] [place] [address] Nov, [facility] [place] [facility] [address] [id number] [place] [address] Nov, [facility] [place] [facility] [address] [id number] [place] [address] Nov, [facility] [place] [facility] [address] [id number] [place] [address] Nov, [facility] [place] [facility] [address] [id number] [place] [address] Nov, [facility] [place] [facility] [address] [id number] [place] [address] October, [facility] [place] [facility] [address] [id number] [place] [address] October, [facility] [place] [facility] [address] [id number] [address] October, [facility] [place] [facility] [address] [id number] [place] [address] October, [facility] [place] [facility] [address] [id number] [place] [address] October, [facility] [place] [facility] [address] [id number] [place] [address] Sep, [facility] [place] [facility] [address] [id number] [place] [address] Sep, [facility] [place] [facility] [address] [id number] [place] [address] Sep, [facility] [place] [facility] [address] [id number] [place] [address] Sep, [facility] [place] [facility] [address] [id number] [place] [address] Sep, [facility] [place] [facility] [address] [id number] [place] [address] Sep, [facility] [place] [facility] [address] [id number] [place] [address] Sep, [facility] [place] [facility] [address] [id number] [place] [address] Sep, [facility] [place] [facility] [address] [id number] [place] [address] Sep, [facility] [place] [facility] [address] [id number] [place] [address] Sep, [facility] [place] [facility] [address] [id number] [place] [address] Sep, [facility] [place] [facility] [address] [id number] [place] [address] Sep, [facility] [place] [facility] [address] [id number] [place] [address] Sep, [facility] [place] [facility] [address] [id number] [place] [address] Sep, [facility] [place] [facility] [address] [id number] [place] [address] Sep, [facility] [place] [facility] [address] [id number] [place] [address] Sep, [facility] [place] [facility] [address] [id number] [place] [address] Sep, [facility] [place] [facility] [address] [id number] [place] [address] Sep, [facility] [place] [facility] [address] [id number] [place] [address] Sep, [facility] [place] [facility] [address] [id number] [place] [address] Aug, [facility] [place] [facility] [address] [id number] [place] [address] Aug, [facility] [place] [facility] [address] [id number] [place] [address] Aug, [facility] [place] [facility] [address] [id number] [place] [address] Aug, [facility] [place] [facility] [address] [id number] [place] [address] Jun, [facility] [place] [facility] [address] [id number] [place] [address] Jun, [facility] [place] [facility] [address] [id number] [place] [address] Mar, [facility] [place] [facility] [address] [id number] [place] [address] Mar, [facility] [place] [facility] [address] [id number] [place] [address] Nov, [facility] [place] [facility] [address] [id number] [place] [address] Sep, [facility] [place] [facility] [address] [id number] [place] [address] Jun, [facility] [place] [facility] [address] [id number] [place] [address] Jun, [facility] [place] [facility] [address] [id number] [place] [address] Apr, [facility] [place] [facility] [address] [id number] [place] [address] Apr, [facility] [address] [facility] [id number] [address] Apr, [facility] [address] [facility] [id number] [address] Mar, [facility] [address] [facility] [id number] [address] Feb, IMMUNIZATIONS No Known Immunizations SOCIAL HISTORY Never Assessed REASON FOR VISIT head congestion, cough. been sick for 4-5 days. [id number] PLAN OF CARE VITAL SIGNS Height 62 in 2017-04-12 Weight 208.4 lbs 2017-04-12 Temperature 98.5 degrees Fahrenheit 2017-04-12 Heart Rate 68 bpm 2017-04-12 Respiratory Rate 20 2017-04-12 BMI 38.11 kg/m2 2017-04-12 Blood pressure systolic 128 mmHg 2017-04-12 Blood pressure diastolic 80 mmHg 2017-04-12 MEDICATIONS Medication Instructions Dosage Frequency Start Date End Date Duration Status Invega Sustenna 39 MG/0.25ML 0.5 ml Active PredniSONE 20 mg Orally Once a day 2 tablets 24h Mar, Mar, 05 days Active Albuterol Sulfate HFA 108 (90 Base) MCG/ACT Inhalation every 4 hrs 2 puffs as needed 4h Feb, Active Depakote ER 250 MG Active Ibuprofen 600 MG Orally Three times a day 1 tablet with food or milk as needed 8h Feb, 30 day(s) Active Pravastatin Sodium 20 MG Orally Once a day 1 tablet 24h 90 days Active RESULTS No Results PROCEDURES No Known procedures INSTRUCTIONS MEDICATIONS ADMINISTERED No Known Medications MEDICAL (GENERAL) HISTORY Type Description Date Medical [...]
--- OUTSIDE RECORDS SUMMARY | 2018-01-10 21:52 | XMS REPORT ---
Author Author [facility]ST[facility] Address [address] [place] [address] Care Team Providers Care [facility] General Manager Name Role Phone DAELA VILLAFUERTE Unavailable PROBLEMS Type Condition ICD9-CM Code XBL28-BN Code Onset Dates Condition Status SNOMED Code Problem Hypertriglyceridemia E78.1 Active 941783737 Problem Mild intermittent asthma, uncomplicated J45.20 Active 679399299 Problem Prediabetes R73.09 Active 1628740 Problem Cervical dysplasia N87.9 Active 66611595 Problem Bulge of cervical disc without myelopathy M50.20 Active 160943505 Problem Lumbar facet arthropathy M46.96 Active 733705171 Problem Hypothyroidism E03.9 Active 65312716 Problem Bulging of cervical intervertebral disc M50.20 Active 946641087 Problem Hand eczema L30.9 Active 964043414 Problem Schizoaffective disorder, bipolar type F25.0 Active 95447365 Problem Generalized anxiety disorder F41.1 Active 17350272 Problem Vaginal burning N94.9 Active 012350965 Problem Other chronic pain G89.29 Active 78305483 ALLERGIES No Information ENCOUNTERS Encounter Location Date Diagnosis [facility] [id number] [place] [address] [id number] October, Dental examination Z01.20 [facility] [id number] [place] [address] 37024- 8017 Sep, [facility] [id number] [place] [address] 88172- 0935 Sep, Hypertriglyceridemia E78.1 [facility] [address] [address]- [address] Sep, Hypothyroidism E03.9 ; Prediabetes R73.09 ; Mild intermittent asthma, uncomplicated J45.20 ; Bulge of cervical disc without myelopathy M50.20 ; Other chronic pain G89.29 ; Hand eczema L30.9 ; Right anterior knee pain M25.561 ; Hypertriglyceridemia E78.1 and BMI 40.0-44.9, adult Z68.41 [facility] [id number] [place] [address] 47484- 6189 Sep, [facility] [id number] [place] [address] 84924- 7939 Sep, [facility] [id number] [place] [address] 81022- 5055 Jul, [facility] [id number] [place] [address] 34074- 5564 May, Acute non-recurrent maxillary sinusitis J01.00 [facility] [id number] [place] [address] 88764 -9528 Mar, Other viral agents as the cause of diseases classified elsewhere B97.89 and Acute upper respiratory infection, unspecified J06.9 [facility] [id number] [place] [address] 91236- 1733 Mar, [facility] [address] 32598- 5662 Mar, Neck pain M54.2 [facility] [id number] [place] [address] 93493- 0596 27 Feb, 2017 Bulge of cervical disc without myelopathy M50.20 [facility] [id number] [place] [address] 06066- 1593 22 Feb, 2017 Neck pain M54.2 [facility] [id number] [place] [address] 16581- 4650 11 Feb, [address] 30104- 9781 07 Feb, 2017 Bulge of cervical disc without myelopathy M50.20 ; Hypertriglyceridemia E78.1 ; Hand eczema L30.9 and Hypothyroidism E03.9 [address] [place] [address]- 5797 Jan, [facility] [id number] [place] [address] [id number] October, 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 dental examination Z01.20 [facility] [address] 48202- 9079 Sep, Generalized abdominal pain R10.84 [facility] [address] 67930- 2097 Sep, Schizoaffective disorder, bipolar type F25.0 and Generalized anxiety disorder F41.1 [facility] [address] [place] [address] 49672 -5059 Sep, [facility] [address] [place] [address] 73027 -2459 Sep, Vaginal burning N94.9 and Vaginal mitzi B37.3 [facility] [address] [place] [address] 58229 -0552 Sep, Gastroenteritis K52.9 [facility] [address] [place] [address] 73886 -2167 Sep, Thrush B37.0 [facility] [address] [place] [address] 72385 -6136 Sep, Pharyngitis due to other organism J02.8 [facility] [id number] [place] [address] 26666- 2067 Sep, [facility] [address] [place] [address] 93842 -6252 Aug, Cervicalgia M54.2 [facility] [address] 53314- 3893 09 Aug, 2016 Hypothyroidism E03.9 ; Dry skin L85.3 ; Plantar fasciitis, bilateral M72.2 and Other chronic pain G89.29 [facility] [address] [place] [address] [place] [address] 07 Aug, 2016 Abrasion T14.8 [facility] [address] [id number] 02 Aug, 2016 Dental examination Z01.20 [facility] [address] 81496 -6401 Aug, Excessive cerumen in right ear canal H61.21 ; Impacted cerumen of both ears 380.4 and Bronchitis J40 [facility] [address] 29029 -3906 Jul, Bilateral impacted cerumen H61.23 and Acute non-recurrent frontal sinusitis J01.10 [facility] [address] 50815- 0293 May, Schizoaffective disorder, bipolar type F25.0 and Generalized anxiety disorder F41.1 [facility] [address] 06689- 0501 May, [facility] [address] 64491- 9376 May, Cervicalgia M54.2 and Hypertriglyceridemia E78.1 [facility] [address] 80823- 8461 May, [facility] [address] 02318- 3384 May, STD exposure Z20.2 and Well woman exam Z01.419 [facility] [address] 61433- 3529 May, [facility] [address] 71707- 8545 Mar, [facility] [address] 41803- 1730 Dec, Pain in left knee M25.562 [facility] [facility] [address] [place] [address]- 6042 Dec, [facility] [address] [place] [address]- 8499 Nov, [facility] [address] [address]- 4168 October, [facility] [address] [place] [address] 26646- 3223 Aug, [facility] [id number] [place] [address] 27466- 1789 Jul, [facility] [id number] [place] [address] 80855- 1331 Jul, [facility] [id number] [place] [address] 08078- 4714 Jul, Plantar fasciitis M72.2 and 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 [facility] [address] [address]- 6296 Jul, [facility] [address] [place] [address] 05125- 9839 Jun, Plantar fasciitis M72.2 and Physical exam Z00.00 [facility] [address] [address]- 9256 Jun, [facility] [address] [address]- 8455 Jun, [facility] [address] [address]- 8478 Jun, [facility] [address] [place] [address] 83636- 2019 May, [facility] [address] [address]- 4367 May, Hypertriglyceridemia E78.1 [facility] [address] [place] [address] 51618- 7759 May, Hypothyroidism E03.9 ; Prediabetes R73.09 and Hypertriglyceridemia E78.1 [facility] [id number] [place] [address] 17488- 9250 May, [facility] [id number] [place] [address] 08477- 4056 May, [facility] [id number] [place] [address] 24309- 3842 May, Hypothyroidism E03.9 ; Prediabetes R73.09 and Hypertriglyceridemia E78.1 [facility] [id number] [place] [address] 88085- 5489 Apr, Schizoaffective disorder, bipolar type F25.0 [facility] [id number] [place] [address] 91259- 7691 Mar, [facility] [id number] [place] [address] 71168- 5990 Mar, [facility] [id number] [place] [address] 52007- 2850 Mar, [facility] [id number] [place] [address] 77822- 7861 Feb, [facility] [id number] [place] [address] 81331- 5923 Feb, [facility] [id number] [place] [address] 43415- 1509 Feb, [facility] [id number] [place] [address] 62879- 1891 Feb, Screen for STD (sexually transmitted disease) V74.5 ; Counseling on other sexually transmitted diseases V65.45 ; Back pain 724.5 ; Contact with or exposure to venereal diseases V01.6 and Pelvic pain in female 625.9 [facility] [id number] [place] [address] 85931- 8794 Feb, Schizoaffective disorder, unspecified 295.70 and Anxiety state, unspecified 300.00 [facility] [id number] [address]- 5247 14 Feb, 2015 [facility] [id number] [place] [address] 33640- 6349 Feb, [facility] [id number] [place] [address] 07487- 0732 Feb, Impacted cerumen of both ears 380.4 and Mild intermittent asthma 493.90 [facility] [id number] [place] [address] 75933- 7854 Feb, [facility] [id number] [place] [address] 93373- 8656 Jan, [facility] [id number] [place] [address] 23577- 0536 Jan, [facility] [id number] [place] [address] 10504- 4412 Jan, [facility] [address] [place] [address] 63783- 6109 Jan, [facility] [id number] [place] [address] 59262- 7502 Jan, [facility] [id number] [place] [address] 05910- 2714 Jan, [facility] [address] [place] [address] 05069- 0297 Jan, [facility] [address] [place] [address] 83237- 5532 Jan, [facility] [id number] [place] [address] 43950- 7921 Jan, [facility] [address] [address]- 8449 Jan, [facility] [id number] [place] [address] 93262- 5043 Jan, [facility] [address] [place] [address]353 Dec, Schizoaffective disorder, unspecified 295.70 [facility] [address] [address]- 7546 Dec, [facility] [address] [address]- 0102 Dec, [facility] [address] [place] 4928 Dec, [facility] [address] [place] [address] 81123- 9527 Dec, [facility] [address] [address]- 9036 Dec, [facility] [address] [place] [id number] Dec, Dental examination V72.2 [facility] [address] 7418 Dec, Schizoaffective disorder, unspecified 295.70 ; Persistent disorder of initiating 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.42 and Anxiety state, unspecified 300.00 [facility] [address] [address]- 6706 Dec, [facility] [address] [place] 6970 Nov, High risk medication use V58.69 [facility] [address] [place] 4533 Nov, [facility] [address] [place] 0672 Nov, [facility] [id number] 9228 Nov, High risk medication use V58.69 [facility] [address] [address]- 6873 Nov, [facility] [address] [place] [address] 87529- 8286 Nov, [facility] [id number] [place] [address] 39526- 7409 Nov, [facility] [id number] [place] [address] 45405- 1636 Nov, Hypothyroidism 244.9 ; Hypertriglyceridemia 272.1 and Prediabetes 790.29 [facility] [id number] [place] [address] 71555- 1223 Nov, [facility] [id number] [place] [address] 20704- 4024 Nov, [facility] [id number] [place] [address] 07204- 4450 Nov, Bulge of cervical disc without myelopathy 722.0 ; Lumbar facet arthropathy 721.3 ; Family history of stroke V17.1 ; Hyperthyroidism 242.90 and 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 long-term current use of medication V58.69 [facility] [address] [address]- 8330 Nov, [facility] [id number] [place] [address] 62082- 2460 October, [facility] [address] [place] [address] 13416- 8592 October, [facility] [address] [place] [address] 10816- 6295 October, [facility] [id number] [place] [address] 83158- 5150 October, [facility] [address] [address]- 5553 October, [facility] [id number] [place] [address] 47137- 5242 October, [facility] [address] [place]- 6270 October, Schizoaffective disorder, unspecified 295.70 and Persistent disorder of initiating 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.42 [facility] [address] [place]- 1219 October, Schizoaffective disorder, unspecified 295.70 [facility] [id number] [place] [address] 75808- 2309 October, [facility] [id number] [place] [address] 925007- 7553 October, [facility] [id number] [place] [address] 10941- 2545 October, [facility] [id number] [address]- 2382 Sep, Lumbago of lumbar region with sciatica 724.2 and Neck pain 723.1 [facility] [address] [address]- 9109 Sep, [facility] [id number] [address]- 5441 Sep, [facility] [address] [address]- 1652 Aug, [facility] [address] [address]- 0574 Aug, [facility] [address] [place] 2049 Aug, [facility] [id number] 6247 Aug, [facility] [address] [place] 4612 Aug, [facility] [address] [place] 2340 Aug, [facility] [place] [facility] [address] [id number] [place] [address]- 9706 20 Aug, 2014 [facility] [place] [facility] [address] [id number] [place] [address]- 8713 20 Aug, 2014 [facility] [place] [facility] [address] [id number] [place] [address]- 1396 19 Aug, 2014 [facility] [place] [facility] [address] [id number] [place] [address]- 0626 19 Aug, 2014 [facility] [place] [facility] [address] [id number] [place] [address]- 6200 18 Aug, 2014 [facility] [place] [facility] [address] [id number] [place] [address]- 6659 18 Aug, 2014 [facility] [place] [facility] [address] [id number] [place] [address]- 6182 18 Aug, 2014 [facility] [place] [facility] [address] [id number] [place] [address]- 7049 18 Aug, 2014 [facility] [place] [facility] [address] [id number] [place] [address]- 7212 16 Aug, 2014 [facility] [place] [facility] [address] [id number] [place] [address]- 7454 Aug, [facility] [place] [facility] [address] [id number] [place] [address]- 0213 Aug, [facility] [place] [facility] [address] [id number] [place] [address]- 0834 Aug, [facility] [place] [facility] [address] [id number] [place] [address]- 3667 Aug, [facility] [place] [facility] [address] [id number] [place] [address]- 5698 Aug, [facility] [place] [facility] [address] [id number] [place] [address]- 4925 Aug, 2014 [facility] [place] [facility] [address] [id number] [place] [address]- 4024 06 Aug, 2014 [facility] [place] [facility] [address] [id number] [place] [address]- 0068 05 Aug, 2014 [facility] [place] [facility] [address] [id number] [place] [address]- 8297 04 Aug, 2014 [facility] [place] [facility] [address] [id number] [place] [address]- 7828 04 Aug, 2014 [facility] [place] [facility] [address] [id number] [place] [address]- 3513 Aug, 2014 [facility] [place] [facility] [address] [id number] [place] [address]- 8054 Aug, 2014 [facility] [place] [facility] [address] [id number] [place] [address]- 0663 27 Jul, 2014 [facility] [place] [facility] [address] [id number] [place] [address]- 1081 27 Jul, 2014 [facility] [place] [facility] [address] [facility] [id number] [place] [address]- 4228 26 Jul, 2014 [facility] [place] [facility] [address] [facility] [id number] [place] [address]- 5801 20 Jul, 2014 [facility] [place] [facility] [address] [facility] [id number] [place] [address]- 0861 20 Jul, 2014 [facility] [place] [facility] [address] [facility] [id number] [place] [address]- 2541 17 Jul, 2014 [facility] [place] [facility] [address] [facility] [id number] [place] [address]- 254 17 Jul, 2014 [facility] [place] [facility] [address] [facility] [id number] [place] 0705 16 Jul, 2014 [facility] [place] [facility] [address] [facility] [id number] [place]- 0674 16 Jul, 2014 [facility] [place] [facility] [address] [facility] [id number] [place] [address]- 7229 Jul, [facility] [place] [facility] [address] [id number] [place] [address]- 6207 Jun, [facility] [place] [facility] [address] [id number] [place] [address]- 9115 Jun, [facility] [place] [facility] [address] [id number] [place] [address]- 6743 Jun, [facility] [place] [facility] [address] [id number] [place] [address]- 8207 Jun, [facility] [place] [facility] [address] [id number] [place] [address]- 2453 Jun, [facility] [place] [facility] [address] [id number] [place] [address]- 8079 Jun, [facility] [place] [facility] [address] [id number] [place] [address]- 1307 Jun, [facility] [place] [facility] [address] [id number] [place] [address]- 5245 May, [facility] [place] [facility] [address] [id number] [place] [address]- 1964 May, [facility] [place] [facility] [address] [id number] [place] [address]- 3257 May, [facility] [place] [facility] [address] [id number] [place] [address]- 9311 May, [facility] [place] [facility] [address] [id number] [place] [address]- 8004 May, [facility] [place] [facility] [address] [id number] [place] [address] May, [facility] [place] [facility] [address] [id number] [place] [address] May, [facility] [place] [facility] [address] [id number] [place] [address] May, [facility] [place] [facility] [address] [id number] [place] [address] May, [facility] [place] [facility] [address] [id number] [place] [address] May, [facility] [place] [facility] [address] [id number] [place] [address] Apr, [facility] [place] [facility] [address] [id number] [place] [address] Apr, [facility] [place] [facility] [address] [id number] [place] [address] Apr, [facility] [place] [facility] [address] [id number] [place] [address] Apr, [facility] [place] [facility] [address] [id number] [place] [address] Apr, [facility] [place] [facility] [address] [id number] [place] [address] Apr, [facility] [place] [facility] [address] [id number] [place] [address] Apr, [facility] [place] [facility] [address] [id number] [place] [address] Apr, [facility] [place] [facility] [address] [facility] [id number] [place] [address] Apr, [facility] [place] [facility] [address] [id number] [place] [address] Mar, [facility] [place] [facility] [address] [id number] [place] [address] Mar, [facility] [place] [facility] [address] [id number] [place] [address] Mar, [facility] [place] [facility] [address] [id number] [place] [address] Mar, [facility] [place] [facility] [address] [id number] [place] [address] Mar, [facility] [place] [facility] [address] [id number] [place] [address] Mar, [facility] [place] [facility] [address] [id number] [place] [address] Mar, [facility] [place] [facility] [address] [id number] [place] [address] Mar, [facility] [place] [facility] [address] [id number] [place] [address] Mar, [facility] [place] [facility] [address] [id number] [place] [address] Mar, [facility] [place] [facility] [address] [id number] [place] [address] Feb, [facility] [place] [facility] [address] [id number] [place] [address] Feb, [facility] [place] [facility] [address] [id number] [place] [address] Feb, [facility] [place] [facility] [address] [id number] [place] [address] Feb, [facility] [place] [facility] [address] [id number] [place] [address] Feb, [facility] [place] [facility] [address] [id number] [place] [address] Jan, [facility] [place] [facility] [address] [id number] [place] [address] Jan, [facility] [place] [facility] [address] [id number] [place] [address] Jan, [facility] [place] [facility] [address] [id number] [place] [address] Jan, [facility] [place] [facility] [address] [id number] [place] [address] Jan, [facility] [place] [facility] [address] [id number] [place] [address] Jan, [facility] [place] [facility] [address] [id number] [place] [address] Jan, [facility] [place] [facility] [address] [id number] [place] [address] Jan, [facility] [place] [facility] [address] [id number] [place] [address] Jan, [facility] [place] [facility] [address] [id number] [place] [address] Dec, [facility] [place] [facility] [address] [id number] [place] [address] Dec, [facility] [facility] [address] [id number] [place] [address] Dec, [facility] [place] [facility] [address] [id number] [place] [address] Dec, [facility] [place] [facility] [address] [id number] [place] [address] Dec, [facility] [place] [facility] [address] [id number] [place] [address] Dec, [facility] [place] [facility] [address] [id number] [place] [address] Dec, [facility] [place] [facility] [address] [id number] [place] [address] Dec, [facility] [place] [facility] [address] [id number] [place] [address] Nov, [facility] [place] [facility] [address] [id number] [place] [address] Nov, [facility] [place] [facility] [address] [id number] [place] [address] Nov, [facility] [place] [facility] [address] [id number] [place] [address] Nov, [facility] [place] [facility] [address] [id number] [place] [address] Nov, [facility] [place] [facility] [address] [id number] [place] [address] Nov, [facility] [place] [facility] [address] [id number] [place] [address] Nov, [facility] [place] [facility] [address] [id number] [place] [address] Nov, [facility] [place] [facility] [address] [id number] [place] [address] Nov, [facility] [place] [facility] [address] [id number] [place] [address] 1996 Nov, [facility] [place] [facility] [address] [id number] [place] [address] Nov, [facility] [facility] [address] [id number] [place] [address] Nov, [facility] [place] [facility] [address] [id number] [place] [address] October, [facility] [place] [facility] [address] [id number] [place] [address] October, [facility] [address] [id number] [place] [address] October, [facility] [facility] [address] [id number] [place] [address] October, [facility] [facility] [address] [id number] [place] [address] October, [facility] [place] [facility] [address] [id number] [place] [address] Sep, [facility] [place] [facility] [address] [id number] [place] [address] Sep, [facility] [place] [facility] [address] [id number] [place] [address] Sep, [facility] [place] [facility] [address] [id number] [place] [address]- [address] Sep, [facility] [place] [facility] [address] [id number] [place] [address]- [address] Sep, [facility] [place] [facility] [address] [id number] [place] [address]- [address] Sep, [facility] [place] [facility] [address] [id number] [place] [address] Sep, [facility] [place] [facility] [address] [id number] [place] [address]- 1186 Sep, [facility] [place] [facility] [address] [id number] [place] [address] Sep, [facility] [place] [facility] [address] [id number] [place] [address] Sep, [facility] [place] [facility] [address] [id number] [place] [address] Sep, [facility] [facility] [address] [id number] [place] [address] Sep, [facility] [place] [facility] [address] [id number] [place] [address] Sep, [facility] [facility] [address] [id number] [place] [address] Sep, [facility] [address] [id number] [place] [address] Sep, [facility] [place] [facility] [address] [id number] [place] [address] Sep, [facility] [place] [facility] [address] [id number] [place] [address]- [address] Sep, [facility] [address] [id number] [place] [address] Sep, [facility] [place] [facility] [address] [id number] [place] [address] Sep, [facility] [place] [facility] [address] [id number] [place] [address] Aug, [facility] [address] [id number] [place] [address] Aug, [facility] [address] [facility] [id number] [place] [address] Aug, [facility] [facility] [address] [id number] [place] [address] Aug, [facility] [address] [id number] [place] [address]- [address] Jun, [facility] [address] [id number] [place] [address] Jun, [facility] [address] [facility] [id number] [place] [address] Mar, [facility] [address] [id number] [place] [address] Mar, [facility] [id number] [address] Nov, [facility] [address] [facility] [id number] [place] [address]- [address] Sep, [facility] [facility] [address] [id number] [place] [address] Jun, [facility] [place] [facility] [address] [id number] [place] [address] Jun, [facility] [facility] [address] [id number] [place] [address]- [address] Apr, [facility] [facility] [address] [facility] [id number] [place] [address]- [address] Apr, [facility] [facility] [address] [facility] [id number] [place] [address]- [address] Apr, [facility] [address] [facility] [id number] [place] [address] 28 Mar, 2010 [facility] [address] [facility] [id number] [place] [address] 14 Feb, 2010 IMMUNIZATIONS No Known Immunizations SOCIAL HISTORY Never Assessed REASON FOR VISIT Requests return call PLAN OF CARE VITAL SIGNS MEDICATIONS No Known Medications RESULTS No Results PROCEDURES No Known procedures [...]
--- OUTSIDE RECORDS SUMMARY | 2018-01-10 21:52 | XMS REPORT ---
Author Author CHRISTO ADELA [facility] Address [address] [place] [address] Care Team Providers Care Community Worker Name Role Phone ADELA VILLAFUERTE Unavailable PROBLEMS Type Condition ICD9-CM Code CLC68-ZO Code Onset Dates Condition Status SNOMED Code Problem Hypertriglyceridemia E78.1 Active 188529909 Problem Mild intermittent asthma, uncomplicated J45.20 Active 371649678 Problem Prediabetes R73.09 Active 6691825 Problem Cervical dysplasia N87.9 Active 43145178 Problem Bulge of cervical disc without myelopathy M50.20 Active 045881326 Problem Lumbar facet arthropathy M46.96 Active 048743175 Problem Hypothyroidism E03.9 Active 98683125 Problem Bulging of cervical intervertebral disc M50.20 Active 366798487 Problem Hand eczema L30.9 Active 838455967 Problem Schizoaffective disorder, bipolar type F25.0 Active 37020329 Problem Generalized anxiety disorder F41.1 Active 13376409 Problem Vaginal burning N94.9 Active 975943291 Problem Other chronic pain G89.29 Active 55285851 ALLERGIES No Information ENCOUNTERS Encounter Location Date Diagnosis [facility] [id number] [place] [address] [id number] October, [facility] [id number] [place] [address] 98702- 4859 Sep, [facility] [id number] [place] [address] 09844- 3172 Sep, Hypertriglyceridemia E78.1 [facility] [address] [address]- 5558 Sep, Hypothyroidism E03.9 ; Prediabetes R73.09 ; Mild intermittent asthma, uncomplicated J45.20 ; Bulge of cervical disc without myelopathy M50.20 ; Other chronic pain G89.29 ; Hand eczema L30.9 ; Right anterior knee pain M25.561 ; Hypertriglyceridemia E78.1 and BMI 40.0-44.9, adult Z68.41 [place] [address] 23816- 3685 Sep, [place] [address] 38834- 1493 Sep, [place] [address] 48239- 7842 Jul, [place] [address] 45438- 4553 May, Acute non-recurrent maxillary sinusitis J01.00 [facility] [id number] [place] [address] 30665 -5002 Mar, Other viral agents as the cause of diseases classified elsewhere B97.89 and Acute upper respiratory infection, unspecified J06.9 [place] [address] 37884- 0083 Mar, [place] [address] 25515- 5940 Mar, Neck pain M54.2 [place] [address] 80951- 6187 27 Feb, 2017 Bulge of cervical disc without myelopathy M50.20 [place] [address] 86127- 9712 Feb, Neck pain M54.2 [place] [address] 18968- 0486 Feb, [address] [address]- 9309 07 Feb, 2017 Bulge of cervical disc without myelopathy M50.20 ; Hypertriglyceridemia E78.1 ; Hand eczema L30.9 and Hypothyroidism E03.9 [place] [address] 85366- 6108 Jan, [facility] [id number] [place] [address] [id number] October, 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 dental examination Z01.20 [facility] [address] 57685- 6709 Sep, Generalized abdominal pain R10.84 [place] [address] 21348- 6912 Sep, Schizoaffective disorder, bipolar type F25.0 and Generalized anxiety disorder F41.1 [facility] [address] [place] [address] 14658 -4060 Sep, [facility] [address] [place] [address] 23745 -8641 Sep, Vaginal burning N94.9 and Vaginal mitzi B37.3 [facility] [address] [place] [address] 64513 -1687 Sep, Gastroenteritis K52.9 [facility] [address] 77[address] -[address]16 Sep, Thrush B37.0 [facility] [address] 34199 -1811 Sep, Pharyngitis due to other organism J02.[address] 26686- 4599 Sep, [facility] [address] [place] [address] 30153 -0387 Aug, Cervicalgia M54.[address] 59566- 7038 09 Aug, 2016 Hypothyroidism E03.9 ; Dry skin L85.3 ; Plantar fasciitis, bilateral M72.2 and Other chronic pain G89.29 [facility] [address] [place] [address] 22284 -8322 Aug, Abrasion T14.8 [facility] [id number] [place] [address] [id number] Aug, Dental examination Z01.20 [facility] [id number] [place] [address] 52459 -0064 Aug, Excessive cerumen in right ear canal H61.21 ; Impacted cerumen of both ears 380.4 and Bronchitis J40 [facility] [address] 42767 -9256 Jul, Bilateral impacted cerumen H61.23 and Acute non-recurrent frontal sinusitis J01.10 [place] [address] 33141- 9977 May, Schizoaffective disorder, bipolar type F25.0 and Generalized anxiety disorder F41.[address] 93411- 4064 May, [place] [address] 13714- 8971 May, Cervicalgia M54.2 and Hypertriglyceridemia E78.1 [place] [address] 97009- 4807 May, [place] [address] 25731- 0608 May, STD exposure Z20.2 and Well woman exam Z01.419 [place] [address] 74032- 4622 May, [place] [address] 06310- 2609 Mar, [place] [address] 26188- 6746 Dec, Pain in left knee M25.562 [place] [address] 97541- 5269 Dec, [facility] [address] [address]- 4996 Nov, [facility] [address] [address]- 0816 October, [facility] [id number] [place] [address] 93978- 7769 Aug, [facility] [id number] [place] [address] 23904- 6347 Jul, [facility] [id number] [place] [address] 42257- 8908 Jul, [facility] [id number] [place] [address] 35055- 2739 Jul, Plantar fasciitis M72.2 and 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 [facility] [id number] [place] [address] 38071- 6851 Jul, [facility] [id number] [place] [address] 17643- 8006 Jun, Plantar fasciitis M72.2 and Physical exam Z00.00 [facility] [address] [address]- 6294 Jun, [facility] [address] [address]- 9999 Jun, [facility] [address] [address]- 0221 Jun, [facility] [id number] [place] [address] 88357- 6554 May, [facility] [id number] [place] [address] 50423- 0456 May, Hypertriglyceridemia E78.1 [facility] [address] [address]- 7822 May, Hypothyroidism E03.9 ; Prediabetes R73.09 and Hypertriglyceridemia E78.1 [facility] [id number] [place] [address] 10632- 5125 May, [facility] [id number] [place] [address] 70563- 2606 May, [facility] [id number] [place] [address] 38746- 7480 May, Hypothyroidism E03.9 ; Prediabetes R73.09 and Hypertriglyceridemia E78.1 [facility] [id number] [place] [address] 87484- 8855 Apr, Schizoaffective disorder, bipolar type F25.0 [facility] [id number] [place] [address] 24191- 2644 Mar, [facility] [id number] [place] [address] 00593- 5226 Mar, [facility] [id number] [place] [address] 92248- 4433 Mar, [facility] [id number] [place] [address] 47594- 3536 30 Feb, 2015 [facility] [id number] [place] [address] 08444- 6098 Feb, [facility] [id number] [place] [address] 07656- 5259 Feb, [facility] [address] [place] [address] 25707- 1037 15 Feb, 2015 Screen for STD (sexually transmitted disease) V74.5 ; Counseling on other sexually transmitted diseases V65.45 ; Back pain 724.5 ; Contact with or exposure to venereal diseases V01.6 and Pelvic pain in female 625.9 [facility] [address] [address]- 4258 Feb, Schizoaffective disorder, unspecified 295.70 and Anxiety state, unspecified 300.00 [facility] [address] [address]- 8727 14 Feb, 2015 [facility] [address], [place] [address]- 6680 Feb, [facility] [id number] [address]- 9408 Feb, Impacted cerumen of both ears 380.4 and Mild intermittent asthma 493.90 [facility] [address] [facility] [id number] [place] [address]- 8202 Feb, [facility] [id number] [place] [address], [place] [address]- 7850 Jan, [facility] [id number] [address]- 4896 Jan, [facility] [id number] [place] [address] 79026- 1336 Jan, [facility] [id number] [address]- 3220 Jan, [facility] [address], [place] [address]- 0984 Jan, [facility] [address], [place] [address]- 9511 Jan, [facility] [address], [place] [address]- 0919 Jan, [facility] [id number] [address]- 4248 Jan, [facility] [address] [address]- 5754 Jan, [facility] [id number] [address]- 1171 Jan, [facility] [address], [place] [address]- 2680 Jan, [facility] [address] [address]- 4638 Dec, Schizoaffective disorder, unspecified 295.70 [facility] [address], [place] [address]- 2323 Dec, [facility] [address], [place] [address]- 1478 Dec, [facility] [address] 2540 Dec, [facility] [id number] [place] [address] 114934- 1999 Dec, [facility] [address] 3335 Dec, [facility] [address] [id number] Dec, Dental examination V72.2 [facility] [address] 4957 Dec, Schizoaffective disorder, unspecified 295.70 ; Persistent disorder of initiating 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.42 and Anxiety state, unspecified 300.00 [facility] [address] [address]- 0821 Dec, [facility] [address] [address]- 3512 Nov, High risk medication use V58.69 [facility] [address] 8287 Nov, [facility] [address] 8188 Nov, [facility] [address] 9693 Nov, High risk medication use V58.69 [facility] [id number] [address]- 1626 Nov, [facility] [id number] [place] [address] 94932- 9177 Nov, [facility] [id number] [place] [address] 68896- 9215 Nov, [facility] [id number] [place] [address] 16202- 5452 Nov, Hypothyroidism 244.9 ; Hypertriglyceridemia 272.1 and Prediabetes 790.29 [facility] [id number] [place] [address] 80047- 5208 Nov, [facility] [id number] [place] [address] 40119- 0930 Nov, [facility] [id number] [place] [address] 74606- 8839 Nov, Bulge of cervical disc without myelopathy 722.0 ; Lumbar facet arthropathy 721.3 ; Family history of stroke V17.1 ; Hyperthyroidism 242.90 and 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 long-term current use of medication V58.69 [facility] [id number] [place] [address] 85988- 0567 Nov, [facility] [address], [place] [address]- 5107 October, [facility] [id number] [place] [address] 04211- 4134 October, [facility] [address], [place] [address]- 8617 October, [facility] [id number] [place] [address] 61349- 9658 October, [facility] [address], [place] [address]- 1979 October, [facility] [id number] [place] [address] 02266- 0473 October, [facility] [address], [place] [address]- 6157 October, Schizoaffective disorder, unspecified 295.70 and Persistent disorder of initiating 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.42 [facility] [id number] [address]- 8792 October, Schizoaffective disorder, unspecified 295.70 [facility] [id number] [place] [address] 44213- 6892 October, [facility] [id number] [place] [address] 248689- 7937 October, [facility] [id number] [place] [address] 25234- 0073 October, [facility] [id number] [address]- 8239 Sep, Lumbago of lumbar region with sciatica 724.2 and Neck pain 723.1 [facility] [address], [place] [address]- 2050 Sep, [facility] [id number] [place] [address] 46346- 4363 Sep, [facility] [address], [place] [address]- 3832 Aug, [facility] [address], [place] [address]- 0367 Aug, [facility] [address], [place] [address]- 2676 Aug, [facility] [address] 2293 Aug, [facility] [address] 3579 Aug, [facility] [address] 6659 Aug, [facility] [place] [facility] [address] [id number] [place] [address]- 3147 Aug, [facility] [place] [facility] [address] [id number] [place] [address]- 4797 20 Aug, 2014 [facility] [place] [facility] [address] [id number] [place] [address]- 9065 Aug, [facility] [place] [facility] [address] [id number] [place] [address]- 1996 19 Aug, 2014 [facility] [place] [facility] [address] [id number] [place] [address]- 2954 18 Aug, 2014 [facility] [place] [facility] [address] [id number] [place] [address]- 7221 18 Aug, 2014 [facility] [place] [facility] [address] [id number] [place] [address]- 4545 18 Aug, 2014 [facility] [place] [facility] [address] [id number] [place] [address]- 9684 Aug, [facility] [place] [facility] [address] [id number] [place] [address]- 3030 16 Aug, 2014 [facility] [place] [facility] [address] [id number] [place] [address]- 1719 Aug, [facility] [place] [facility] [address] [id number] [place] [address]- 4673 Aug, [facility] [place] [facility] [address] [id number] [place] [address]- 1161 Aug, [facility] [place] [facility] [address] [id number] [place] [address]- 1384 Aug, [facility] [place] [facility] [address] [id number] [place] [address]- 1909 Aug, [facility] [place] [facility] [address] [id number] [place] [address]- 5999 Aug, [facility] [place] [facility] [address] [id number] [place] [address]- 4770 06 Aug, 2014 [facility] [place] [facility] [address] [id number] [place] [address]- 0532 05 Aug, 2014 [facility] [place] [facility] [address] [id number] [place] [address]- 4624 04 Aug, 2014 [facility] [place] [facility] [address] [facility] [id number] [place] [address]- 9612 04 Aug, 2014 [facility] [place] [facility] [address] [id number] [place] [address]- 5592 Aug, 2014 [facility] [place] [facility] [address] [id number] [place] [address]- 3731 Aug, [facility] [place] [facility] [address] [facility] [id number] [place] [address]- 3514 Jul, 2014 [facility] [place] [facility] [address] [facility] [id number] [place] [address]- 5110 27 Jul, 2014 [facility] [place] [facility] [address] [facility] [id number] [place] [address]- 0388 26 Jul, 2014 [facility] [place] [facility] [address] [facility] [id number] [place] [address]- 6420 20 Jul, 2014 [facility] [place] [facility] [address] [facility] [id number] [place] [address]- 4822 20 Jul, 2014 [facility] [place] [facility] [address] [facility] [id number] [place] [address]- 1418 17 Jul, 2014 [facility] [place] [facility] [address] [facility] [id number] [place] [address]- 7988 17 Jul, 2014 [facility] [place] [facility] [address] [facility] [id number] [place] [address]- 8306 16 Jul, 2014 [facility] [place] [facility] [address] [facility] [id number] [place] [address]- 7346 16 Jul, 2014 [facility] [place] [facility] [address] [facility] [id number] [address]- 7399 Jul, [facility] [place] [facility] [address] [id number] [place] [address]- 3747 Jun, [facility] [place] [facility] [address] [id number] [place] [address]- 9032 Jun, [facility] [place] [facility] [address] [id number] [place] [address]- 4328 Jun, [facility] [place] [facility] [address] [id number] [place] [address]- 6413 Jun, [facility] [place] [facility] [address] [id number] [place] [address]- 8554 Jun, [facility] [place] [facility] [address] [id number] [place] [address]- 9356 Jun, [facility] [place] [facility] [address] [id number] [place] [address]- 0412 Jun, [facility] [place] [facility] [address] [id number] [place] [address]- 1739 May, [facility] [place] [facility] [address] [id number] [place] [address]- 2009 May, [facility] [place] [facility] [address] [id number] [place] [address]- 9643 May, [facility] [place] [facility] [address] [id number] [place] [address]- 9147 May, [facility] [place] [facility] [address] [id number] [address]- 2313 May, [facility] [place] [facility] [address] [id number] [place] 2723 May, [facility] [place] [facility] [address] [id number] [place] [address]- 2014 May, [facility] [place] [facility] [address] [id number] [place] [address]- 9942 May, [facility] [place] [facility] [address] [id number] [address]- 7651 May, [facility] [place] [facility] [address] [id number] [place] [address]- 6766 May, [facility] [place] [facility] [address] [id number] [place] [address]- 1875 Apr, [facility] [place] [facility] [address] [id number] [place] [address]- 3650 Apr, [facility] [place] [facility] [address] [id number] [place] [address]- 5406 Apr, [facility] [place] [facility] [address] [id number] [place] [address]- 5851 Apr, [facility] [place] [facility] [address] [id number] [place] [address] Apr, [facility] [place] [facility] [address] [id number] [place] [address] Apr, [facility] [place] [facility] [address] [id number] [place] [address] Apr, [facility] [place] [facility] [address] [id number] [place] [address] Apr, [facility] [place] [facility] [address] [id number] [place] [address] Apr, [facility] [place] [facility] [address] [id number] [address] Mar, [facility] [place] [facility] [address] [id number], [place] [address] Mar, [facility] [place] [facility] [address] [id number] [place] [address] Mar, [facility] [place] [facility] [address] [id number] [place] [address] Mar, [facility] [place] [facility] [address] [id number] [place] [address] Mar, [facility] [place] [facility] [address] [id number] [place] [address] Mar, [facility] [place] [facility] [address] [id number] [place] [address] Mar, [facility] [place] [facility] [address] [id number] [place] [address] Mar, [facility] [place] [facility] [address] [id number] [place] [address] Mar, [facility] [place] [facility] [address] [id number] [place] [address] Mar, [facility] [place] [facility] [address] [id number] [place] [address] Feb, [facility] [place] [facility] [address] [id number] [place] [address] Feb, [facility] [place] [facility] [address] [id number] [place] [address] Feb, [facility] [place] [facility] [address] [id number] [place] [address] Feb, [facility] [place] [facility] [address] [id number] [place] [address] Feb, [facility] [place] [facility] [address] [id number] [place] [address] Jan, [facility] [place] [facility] [address] [id number] [place] [address] Jan, [facility] [place] [facility] [address] [id number] [place] [address] Jan, [facility] [place] [facility] [address] [id number] [place] [address] Jan, [facility] [place] [facility] [address] [id number] [place] [address] Jan, [facility] [place] [facility] [address] [id number] [place] [address] Jan, [facility] [place] [facility] [address] [id number] [place] [address] Jan, [facility] [place] [facility] [address] [id number] [place] [address] Jan, [facility] [place] [facility] [address] [id number] [place] [address] Jan, [facility] [place] [facility] [address] [id number] [place] [address] Dec, [facility] [place] [facility] [address] [id number] [place] [address] Dec, [facility] [place] [facility] [address] [id number] [place] [address] Dec, [facility] [place] [facility] [address] [id number] [place] [address] Dec, [facility] [place] [facility] [address] [id number] [place] [address] Dec, [facility] [place] [facility] [address] [id number] [place] [address] Dec, [facility] [place] [facility] [address] [id number] [place] [address] Dec, [facility] [place] [facility] [address] [address] [id number] [place] [address] Dec, [facility] [place] [facility] [address] [id number] [place] [address] Nov, [facility] [place] [facility] [address] [id number] [place] [address] Nov, [facility] [place] [facility] [address] [id number] [place] [address] Nov, [facility] [place] [facility] [address] [id number] [place] [address] Nov, [facility] [place] [facility] [address] [id number] [place] [address] Nov, [facility] [place] [facility] [address] [id number] [place] [address] Nov, [facility] [place] [facility] [address] [id number] [place] [address] Nov, [facility] [place] [facility] [address] [id number] [place] [address] Nov, [facility] [place] [facility] [address] [id number] [place] [address] Nov, [facility] [place] [facility] [address] [id number] [place] [address] Nov, [facility] [place] [facility] [address] [id number] [place] [address] Nov, [facility] [place] [facility] [address] [id number] [place] [address] Nov, [facility] [place] [facility] [address] [id number] [place] [address] October, [facility] [place] [facility] [address] [id number] [place] [address] October, [facility] [place] [facility] [address] [id number] [place] [address] October, [facility] [place] [facility] [address] [id number] [place] [address] October, [facility] [place] [facility] [address] [id number] [place] [address] October, [facility] [place] [facility] [address] [id number] [place] [address] Sep, [facility] [place] [facility] [address] [id number] [place] [address]69 Sep, [facility] [place] [facility] [address] [id number] [place] [address] Sep, [facility] [place] [facility] [address] [id number] [place] [address] Sep, [facility] [place] [facility] [address] [id number] [place] [address] Sep, [facility] [place] [facility] [address] [id number] [place] [address] Sep, [facility] [place] [facility] [address] [id number] [place] [address] Sep, [facility] [place] [facility] [address] [id number] [place] [address] Sep, [facility] [place] [facility] [address] [id number] [place] [address] Sep, [facility] [place] [facility] [address] [id number] [place] [address] Sep, [facility] [place] [facility] [address] [id number] [place] [address] Sep, [facility] [place] [facility] [address] [id number] [place] [address] Sep, [facility] [place] [facility] [address] [id number] [place] [address]48 Sep, [facility] [place] [facility] [address] [id number] [place] [address] Sep, [facility] [place] [facility] [address] [id number] [place] [address] Sep, [facility] [place] [facility] [address] [id number] [place] [address] Sep, [facility] [place] [facility] [address] [id number] [place] [address] Sep, [facility] [place] [facility] [address] [id number] [place] [address] Sep, [facility] [place] [facility] [address] [id number] [place] [address] Sep, [facility] [place] [facility] [address] [id number] [place] [address] Aug, [facility] [place] [facility] [address] [id number] [place] [address]698 Aug, [facility] [place] [facility] [address] [id number] [place] [address] Aug, [facility] [place] [facility] [address] [id number] [place] [address] Aug, [facility] [place] [facility] [address] [id number] [place] [address] Jun, [facility] [place] [facility] [address] [id number] [place] [address] Jun, [facility] [place] [facility] [address] [id number] [place] [address] Mar, [facility] [place] [facility] [address] [id number] [place] [address] Mar, [facility] [place] [facility] [address] [id number] [place] [address] Nov, [facility] [place] [facility] [address] [id number] [place] [address] Sep, [facility] [place] [facility] [address] [id number], [place] [address] Jun, [facility] [place] [facility] [address] [id number], [place] [address] Jun, [facility] [place] [facility] [address] [id number] [place] [address] Apr, [facility] [place] [facility] [address] [id number] [place] [address] Apr, [facility] [place] [facility] [address] [id number] [place] [address] 79[address] Apr, [facility] [place] [facility] [address] [facility] [id number] [place] [address] 28 Mar, 2010 [facility] [address] [facility] [id number] [place] [address] 14 Feb, 2010 IMMUNIZATIONS No Known Immunizations SOCIAL HISTORY Never Assessed REASON FOR VISIT Xray (walk-in) MHill RT(R) PLAN OF CARE VITAL SIGNS MEDICATIONS Unknown Medications RESULTS Name Result Date Reference Range Xray : Spine, Cervical (IN HOUSE) 2017-03-20 PROCEDURES Procedure Date Ordered Result Body Site X-RAY EXAM OF NECK SPINE Mar 20, 2017 INSTRUCTIONS MEDICATIONS ADMINISTERED No Known Medications MEDICAL [...] History [facility] 03/2016 Hospitalization History [place] x 30 days
--- OUTSIDE RECORDS SUMMARY | 2018-01-10 21:53 | XMS REPORT ---
Author Author [facility] Address [address] [place] [address] Care Team Providers Care Analytical Sciences Director Name Role Phone ADELA VILLAFUERTE Unavailable PROBLEMS Type Condition ICD9-CM Code TYE21-PF Code Onset Dates Condition Status SNOMED Code Problem Hypertriglyceridemia E78.1 Active 018867877 Problem Mild intermittent asthma, uncomplicated J45.20 Active 805555330 Problem Prediabetes R73.09 Active 7429962 Problem Cervical dysplasia N87.9 Active 61434455 Problem Bulge of cervical disc without myelopathy M50.20 Active 342001971 Problem Lumbar facet arthropathy M46.96 Active 859240369 Problem Hypothyroidism E03.9 Active 88506789 Problem Bulging of cervical intervertebral disc M50.20 Active 621075525 Problem Hand eczema L30.9 Active 844636092 Problem Schizoaffective disorder, bipolar type F25.0 Active 71426971 Problem Generalized anxiety disorder F41.1 Active 44214005 Problem Vaginal burning N94.9 Active 930462326 Problem Other chronic pain G89.29 Active 63315632 ALLERGIES No Information ENCOUNTERS Encounter Location Date Diagnosis [facility] [id number] [place] [address] [id number] October, [facility] [id number] [place] [address] 47850- 7471 Sep, [facility] [id number] [place] [address] 07148- 7426 Sep, Hypertriglyceridemia E78.1 [facility] [address] 06504- 8744 Sep, Hypothyroidism E03.9 ; Prediabetes R73.09 ; Mild intermittent asthma, uncomplicated J45.20 ; Bulge of cervical disc without myelopathy M50.20 ; Other chronic pain G89.29 ; Hand eczema L30.9 ; Right anterior knee pain M25.561 ; Hypertriglyceridemia E78.1 and BMI 40.0-44.9, adult Z68.41 [place] [address] 16555- 8457 Sep, [place] [address] 02612- 1242 Sep, [place] [address] 03663- 0804 Jul, [place] [address] 94403- 4122 May, Acute non-recurrent maxillary sinusitis J01.00 [facility] [id number] [place] [address] 78230 -5202 Mar, Other viral agents as the cause of diseases classified elsewhere B97.89 and Acute upper respiratory infection, unspecified J06.9 [place] [address] 88764- 5893 Mar, [place] [address] 14100- 0453 Mar, Neck pain M54.2 [place] [address] 64150- 5091 27 Feb, 2017 Bulge of cervical disc without myelopathy M50.20 [place] [address] 97951- 7199 Feb, Neck pain M54.2 [place] [address] 12542- 5827 Feb, [address] 63378- 8779 07 Feb, 2017 Bulge of cervical disc without myelopathy M50.20 ; Hypertriglyceridemia E78.1 ; Hand eczema L30.9 and Hypothyroidism E03.9 [place] [address] 82503- 3849 Jan, [facility] [id number] [place] [address] [id number] October, 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 dental examination Z01.20 [facility] [address] 63892- 0891 Sep, Generalized abdominal pain R10.84 [place] [address] 51213- 1892 Sep, Schizoaffective disorder, bipolar type F25.0 and Generalized anxiety disorder F41.1 [facility] [address] [place] [address] 79775 -5436 Sep, [facility] [address] [place] [address] 65635 -7824 Sep, Vaginal burning N94.9 and Vaginal mitzi B37.3 [facility] [address] [place] [address] 86252 -1496 Sep, Gastroenteritis K52.9 [facility] [address] 63555 -0930 Sep, Thrush B37.0 [facility] [address] 16450 -3135 Sep, Pharyngitis due to other organism J02.[address] 23534- 8256 Sep, [facility] [address] [place] [address] 79064 -1404 Aug, Cervicalgia M54.[address] 14622- 6709 09 Aug, 2016 Hypothyroidism E03.9 ; Dry skin L85.3 ; Plantar fasciitis, bilateral M72.2 and Other chronic pain G89.29 [facility] [address] [place] [address] 94792 -2607 Aug, Abrasion T14.8 [facility] [id number] [place] [address] [id number] Aug, Dental examination Z01.20 [facility] [id number] [place] [address] 51142 -0848 Aug, Excessive cerumen in right ear canal H61.21 ; Impacted cerumen of both ears 380.4 and Bronchitis J40 [facility] [address] 94250 -1710 Jul, Bilateral impacted cerumen H61.23 and Acute non-recurrent frontal sinusitis J01.10 [place] [address] 70435- 8523 May, Schizoaffective disorder, bipolar type F25.0 and Generalized anxiety disorder F41.[address] 56372- 0515 May, [place] [address] 52998- 7782 May, Cervicalgia M54.2 and Hypertriglyceridemia E78.1 [place] [address] 72930- 6240 May, [place] [address] 30687- 0241 May, STD exposure Z20.2 and Well woman exam Z01.419 [place] [address] 84433- 5179 May, [place] [address] 13856- 7354 Mar, [place] [address] 11388- 8126 Dec, Pain in left knee M25.562 [place] [address] 57191- 4079 Dec, [facility] [address] [address]- 8804 Nov, [facility] [address] [address]- 2124 October, [facility] [address] [place] [address] 03119- 3200 Aug, [facility] [id number] [place] [address] 46549- 1674 Jul, [facility] [address] [place] [address] 90931- 4589 Jul, [facility] [id number] [place] [address] 06547- 4049 Jul, Plantar fasciitis M72.2 and 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 [facility] [id number] [place] [address] 91244- 6672 Jul, [facility] [address] [place] [address] 03591- 3994 Jun, Plantar fasciitis M72.2 and Physical exam Z00.00 [facility] [address] [address]- 0633 Jun, [facility] [address] [address]- 6163 Jun, [facility] [address] [address]- 2073 Jun, [facility] [address] [place] [address] 67215- 3230 May, [facility] [id number] [place] [address] 35440- 7005 May, Hypertriglyceridemia E78.1 [facility] [address] [address]- 0174 May, Hypothyroidism E03.9 ; Prediabetes R73.09 and Hypertriglyceridemia E78.1 [facility] [id number] [place] [address] 48420- 6247 May, [facility] [id number] [place] [address] 98357- 4900 May, [facility] [id number] [place] [address] 53286- 5211 May, Hypothyroidism E03.9 ; Prediabetes R73.09 and Hypertriglyceridemia E78.1 [facility] [id number] [place] [address] 81759- 5583 Apr, Schizoaffective disorder, bipolar type F25.0 [facility] [id number] [place] [address] 18552- 5488 Mar, [facility] [id number] [place] [address] 82974- 2585 Mar, [facility] [id number] [place] [address] 67317- 4784 Mar, [facility] [id number] [place] [address] 65313- 3605 30 Feb, 2015 [facility] [address] [place] [address] 69233- 6034 Feb, [facility] [id number] [place] [address] 47461- 6898 Feb, [facility] [address] [place] [address] 91070- 5142 15 Feb, 2015 Screen for STD (sexually transmitted disease) V74.5 ; Counseling on other sexually transmitted diseases V65.45 ; Back pain 724.5 ; Contact with or exposure to venereal diseases V01.6 and Pelvic pain in female 625.9 [facility] [address], [place] [address]- 0948 Feb, Schizoaffective disorder, unspecified 295.70 and Anxiety state, unspecified 300.00 [facility] [address] [place] [address]- 3571 14 Feb, 2015 [facility] [address], [place] [address]- 6668 Feb, [facility] [id number] [address]- 6105 Feb, Impacted cerumen of both ears 380.4 and Mild intermittent asthma 493.90 [facility] [address] [facility] [id number] [place] [address]- 3648 Feb, [facility] [id number] [place] [address], [place] [address]- 3391 Jan, [facility] [id number] [address]- 4691 Jan, [facility] [id number] [place] [address] 29358- 3321 Jan, [facility] [id number] [address]- 0815 Jan, [facility] [address], [place] [address]- 4434 Jan, [facility] [address] [address]- 1689 Jan, [facility] [address], [place] [address]- 4063 Jan, [facility] [id number] [address]- 1868 Jan, [facility] [address], [place] [address]- 6710 Jan, [facility] [id number] [address]- 4658 Jan, [facility] [address], [place] [address]- 3202 Jan, [facility] [address], [place] [address]- 7407 Dec, Schizoaffective disorder, unspecified 295.70 [facility] [address], [place] [address]- 1696 Dec, [facility] [address], [place] [address]- 1364 Dec, [facility] [address] 4509 Dec, [facility] [address] [place] [address] 764398- 5235 Dec, [facility] [address] 3626 Dec, [facility] [address] [address] Dec, Dental examination V72.2 [facility] [address] 7446 Dec, Schizoaffective disorder, unspecified 295.70 ; Persistent disorder of initiating 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.42 and Anxiety state, unspecified 300.00 [facility] [address], [place] [address]- 4545 Dec, [facility] [address], [place] [address]- 3673 Nov, High risk medication use V58.69 [facility] [address] 1291 Nov, [facility] [address] 1186 Nov, [facility] [address] 7775 Nov, High risk medication use V58.69 [facility] [id number], [place] [address]- 0216 Nov, [facility] [address] [place] [address] 56206- 5239 Nov, [facility] [id number] [place] [address] 59302- 3366 Nov, [facility] [id number] [place] [address] 37817- 8868 Nov, Hypothyroidism 244.9 ; Hypertriglyceridemia 272.1 and Prediabetes 790.29 [facility] [id number] [place] [address] 34341- 7946 Nov, [facility] [id number] [place] [address] 41330- 2174 Nov, [facility] [id number] [place] [address] 00024- 4676 Nov, Bulge of cervical disc without myelopathy 722.0 ; Lumbar facet arthropathy 721.3 ; Family history of stroke V17.1 ; Hyperthyroidism 242.90 and 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 long-term current use of medication V58.69 [facility] [id number] [place] [address] 58344- 7968 Nov, [facility] [address], [place] [address]- 0481 October, [facility] [address] [place] [address] 20762- 6638 October, [facility] [address], [place] [address]- 5570 October, [facility] [id number] [place] [address] 58835- 8198 October, [facility] [address], [place] [address]- 2134 October, [facility] [address] [place] [address] 46733- 6629 October, [facility] [address], [place] [address]- 6090 October, Schizoaffective disorder, unspecified 295.70 and Persistent disorder of initiating 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.42 [facility] [id number] [address]- 0146 October, Schizoaffective disorder, unspecified 295.70 [facility] [id number] [place] [address] 43818- 1304 October, [facility] [id number] [place] [address] 208480- 3598 October, [facility] [id number] [place] [address] 83718- 2379 October, [facility] [id number] [address]- 6967 Sep, Lumbago of lumbar region with sciatica 724.2 and Neck pain 723.1 [facility] [address], [place] [address]- 8929 Sep, [facility] [id number] [place] [address] 45654- 6612 Sep, [facility] [address], [place] [address]- 8388 Aug, [facility] [address], [place] [address]- 2761 Aug, [facility] [address], [place] [address]- 4112 Aug, [facility] [address]- 4093 Aug, [facility] [address] 7290 Aug, [facility] [address] 2395 Aug, [facility] [place] [facility] [address] [id number] [place] [address]- 8299 Aug, [facility] [place] [facility] [address] [id number] [place] [address]- 7672 20 Aug, 2014 [facility] [place] [facility] [address] [id number] [place] [address]- 0333 Aug, [facility] [place] [facility] [address] [id number] [place] [address]- 5869 19 Aug, 2014 [facility] [place] [facility] [address] [id number] [place] [address]- 3848 18 Aug, 2014 [facility] [place] [facility] [address] [id number] [place] [address]- 2846 18 Aug, 2014 [facility] [place] [facility] [address] [id number] [place] [address]- 4172 18 Aug, 2014 [facility] [place] [facility] [address] [id number] [place] [address]- 8413 Aug, [facility] [place] [facility] [address] [id number] [place] [address]- 2652 16 Aug, 2014 [facility] [place] [facility] [address] [id number] [place] [address]- 3429 Aug, [facility] [place] [facility] [address] [id number] [place] [address]- 9430 Aug, [facility] [place] [facility] [address] [id number] [place] [address]- 7407 Aug, [facility] [place] [facility] [address] [id number] [place] [address]- 4036 Aug, [facility] [place] [facility] [address] [id number] [place] [address]- 1060 Aug, [facility] [place] [facility] [address] [id number] [place] [address]- 3090 Aug, [facility] [place] [facility] [address] [id number] [place] [address]- 6985 06 Aug, 2014 [facility] [place] [facility] [address] [id number] [place] [address]- 6733 05 Aug, 2014 [facility] [place] [facility] [address] [id number] [place] [address]- 0202 04 Aug, 2014 [facility] [place] [facility] [address] [facility] [id number] [place] [address]- 6244 04 Aug, 2014 [facility] [place] [facility] [address] [id number] [place] [address]- 7557 Aug, 2014 [facility] [place] [facility] [address] [id number] [place] [address]- 0424 Aug, [facility] [place] [facility] [address] [facility] [id number] [place] [address]- 5410 Jul, 2014 [facility] [place] [facility] [address] [facility] [id number] [place] [address]- 6927 27 Jul, 2014 [facility] [place] [facility] [address] [facility] [id number] [place] [address]- 7353 26 Jul, 2014 [facility] [place] [facility] [address] [facility] [id number] [place] [address]- 2227 20 Jul, 2014 [facility] [place] [facility] [address] [facility] [id number] [place] [address]- 4142 20 Jul, 2014 [facility] [place] [facility] [address] [facility] [id number] [place] [address]- 7321 17 Jul, 2014 [facility] [place] [facility] [address] [facility] [id number] [place] [address]- 3171 17 Jul, 2014 [facility] [place] [facility] [address] [facility] [id number] [place] [address]- 3637 16 Jul, 2014 [facility] [place] [facility] [address] [facility] [id number] [place] [address]- 5471 16 Jul, 2014 [facility] [place] [facility] [address] [facility] [id number], [place] [address]- 5690 Jul, [facility] [place] [facility] [address] [id number] [place] [address]- 6414 Jun, [facility] [place] [facility] [address] [id number] [place] [address]- 7391 Jun, [facility] [place] [facility] [address] [id number] [place] [address]- 1443 Jun, [facility] [place] [facility] [address] [id number] [place] [address]- 3561 Jun, [facility] [place] [facility] [address] [id number] [place] [address]- 3662 Jun, [facility] [place] [facility] [address] [id number] [place] [address]- 7681 Jun, [facility] [place] [facility] [address] [id number] [place] [address]- 6244 Jun, [facility] [place] [facility] [address] [id number] [place] [address]- 1167 May, [facility] [place] [facility] [address] [id number] [place] [address]- 5954 May, [facility] [place] [facility] [address] [id number] [place] [address]- 8405 May, [facility] [place] [facility] [address] [id number] [place] [address]- 3710 May, [facility] [place] [facility] [address] [id number], [place] [address]- 0740 May, [facility] [place] [facility] [address] [id number] [place] 9527 May, [facility] [place] [facility] [address] [id number] [place] [address]- 8283 May, [facility] [place] [facility] [address] [id number] [place] [address]- 6847 May, [facility] [place] [facility] [address] [id number], [place] [address]- 7149 May, [facility] [place] [facility] [address] [id number] [place] [address]- 6867 May, [facility] [place] [facility] [address] [id number] [place] [address]- 3584 Apr, [facility] [place] [facility] [address] [id number] [place] [address]- 7899 Apr, [facility] [place] [facility] [address] [id number] [place] [address]- 3590 Apr, [facility] [place] [facility] [address] [id number] [place] [address]- 2406 Apr, [facility] [place] [facility] [address] [id number] [place] [address]- 8099 Apr, [facility] [place] [facility] [address] [id number] [place] [address]- 8079 Apr, [facility] [place] [facility] [address] [id number] [place] [address]- 1439 Apr, [facility] [place] [facility] [address] [id number] [place] [address]- 8002 Apr, [facility] [place] [facility] [address] [id number] [place] [address]- 8725 Apr, [facility] [place] [facility] [address] [id number], [place] [address] Mar, [facility] [place] [facility] [address] [id number], [place] [address] Mar, [facility] [place] [facility] [address] [id number] [place] [address] Mar, [facility] [place] [facility] [address] [id number] [place] [address] Mar, [facility] [place] [facility] [address] [id number] [place] [address] Mar, [facility] [place] [facility] [address] [id number] [place] [address] Mar, [facility] [place] [facility] [address] [id number] [place] [address] Mar, [facility] [place] [facility] [address] [id number] [place] [address] Mar, [facility] [place] [facility] [address] [id number] [place] [address] Mar, [facility] [place] [facility] [address] [id number] [place] [address] Mar, [facility] [place] [facility] [address] [id number] [place] [address] Feb, [facility] [place] [facility] [address] [id number] [place] [address] Feb, [facility] [place] [facility] [address] [id number] [place] [address] Feb, [facility] [place] [facility] [address] [id number] [place] [address] Feb, [facility] [place] [facility] [address] [id number] [place] [address] Feb, [facility] [place] [facility] [address] [id number] [place] [address] Jan, [facility] [place] [facility] [address] [id number] [place] [address] Jan, [facility] [place] [facility] [address] [id number] [place] [address] Jan, [facility] [place] [facility] [address] [id number] [place] [address] Jan, [facility] [place] [facility] [address] [id number] [place] [address] Jan, [facility] [place] [facility] [address] [id number] [place] [address] Jan, [facility] [place] [facility] [address] [id number] [place] [address] Jan, [facility] [place] [facility] [address] [id number] [place] [address] Jan, [facility] [place] [facility] [address] [id number] [place] [address] Jan, [facility] [place] [facility] [address] [id number] [place] [address] Dec, [facility] [place] [facility] [address] [id number] [place] [address] Dec, [facility] [place] [facility] [address] [id number] [place] [address] Dec, [facility] [place] [facility] [address] [id number] [place] [address] Dec, [facility] [place] [facility] [address] [id number] [place] [address] Dec, [facility] [place] [facility] [address] [id number] [place] [address] Dec, [facility] [place] [facility] [address] [id number] [place] [address] Dec, [facility] [place] [facility] [address] [id number] [place] [address] Dec, [facility] [place] [facility] [address] [id number] [place] [address] Nov, [facility] [place] [facility] [address] [id number] [place] [address] Nov, [facility] [place] [facility] [address] [id number] [place] [address] Nov, [facility] [place] [facility] [address] [id number] [place] [address] Nov, [facility] [place] [facility] [address] [id number] [place] [address] Nov, [facility] [place] [facility] [address] [id number] [place] [address] Nov, [facility] [place] [facility] [address] [id number] [place] [address] Nov, [facility] [place] [facility] [address] [id number] [place] [address] Nov, [facility] [place] [facility] [address] [id number] [place] [address] Nov, [facility] [place] [facility] [address] [id number] [place] [address] Nov, [facility] [place] [facility] [address] [id number] [place] [address] Nov, [facility] [place] [facility] [address] [id number] [place] [address] Nov, [facility] [place] [facility] [address] [id number] [place] [address]- [address] October, [facility] [place] [facility] [address] [id number] [place] [address] October, [facility] [place] [facility] [address] [id number] [place] [address] October, [facility] [place] [facility] [address] [id number] [place] [address] October, [facility] [place] [facility] [address] [id number] [place] [address] October, [facility] [place] [facility] [address] [id number] [place] [address] Sep, [facility] [place] [facility] [address] [id number] [place] [address] Sep, [facility] [place] [facility] [address] [id number] [place] [address] Sep, [facility] [place] [facility] [address] [id number] [place] [address] Sep, [facility] [place] [facility] [address] [id number] [place] [address] Sep, [facility] [place] [facility] [address] [id number] [place] [address] Sep, [facility] [place] [facility] [address] [id number] [place] [address] Sep, [facility] [place] [facility] [address] [id number] [place] [address] Sep, [facility] [place] [facility] [address] [id number] [place] [address] Sep, [facility] [place] [facility] [address] [id number] [place] [address] Sep, [facility] [place] [facility] [address] [id number] [place] [address] Sep, [facility] [place] [facility] [address] [id number] [place] [address] Sep, [facility] [place] [facility] [address] [id number] [place] [address] Sep, [facility] [place] [facility] [address] [id number] [place] [address] Sep, [facility] [place] [facility] [address] [id number] [place] [address] Sep, [facility] [place] [facility] [address] [id number] [place] [address] Sep, [facility] [place] [facility] [address] [id number] [place] [address] Sep, [facility] [place] [facility] [address] [id number] [place] [address] Sep, [facility] [place] [facility] [address] [id number] [place] [address] Sep, [facility] [place] [facility] [address] [id number] [place] [address] Aug, [facility] [place] [facility] [address] [id number] [place] [address] Aug, [facility] [place] [facility] [address] [id number] [place] [address] Aug, [facility] [place] [facility] [address] [id number] [place] [address] Aug, [facility] [place] [facility] [address] [id number] [place] [address] Jun, [facility] [place] [facility] [address] [id number] [place] [address] Jun, [facility] [place] [facility] [address] [id number] [place] [address] Mar, [facility] [place] [facility] [address] [id number] [place] [address] Mar, [facility] [place] [facility] [address] [id number] [place] [address] Nov, [facility] [place] [facility] [address] [id number] [place] [address] Sep, [facility] [place] [facility] [address] [id number], [place] [address] Jun, [facility] [place] [facility] [address] [id number], [place] [address] Jun, [facility] [place] [facility] [address] [id number] [place] [address] Apr, [facility] [place] [facility] [address] [id number] [place] [address] Apr, [facility] [place] [facility] [address] [id number] [place] [address] Apr, [facility] [place] [facility] [address] [facility] [id number] [place] [id number] 28 Mar, 2010 [facility] [address] [facility] [id number] [place] [address] 14 Feb, 2010 IMMUNIZATIONS No Known Immunizations SOCIAL HISTORY Never Assessed REASON FOR VISIT PA for MRI C-spine PLAN OF CARE VITAL SIGNS MEDICATIONS Unknown Medications RESULTS No Results PROCEDURES No Known [...] History [facility] 03/2016 Hospitalization History Adrian x 30 days
--- OUTSIDE RECORDS SUMMARY | 2018-01-10 21:54 | XMS REPORT ---
Author Author CHRISTO ADELA [facility] Address [address] [place] [address] Care Team Providers Care Unit Controller Name Role Phone ADELA VILLAFUERTE Unavailable PROBLEMS Type Condition ICD9-CM Code [id number] Code Onset Dates Condition Status SNOMED Code Problem Hypertriglyceridemia E78.1 Active 373704414 Problem Mild intermittent asthma, uncomplicated J45.20 Active 412033368 Problem Prediabetes R73.09 Active 5847635 Problem Cervical dysplasia N87.9 Active 10584464 Problem Bulge of cervical disc without myelopathy M50.20 Active 326051921 Problem Lumbar facet arthropathy M46.96 Active 825421279 Problem Hypothyroidism E03.9 Active 60965420 Problem Bulging of cervical intervertebral disc M50.20 Active 013027467 Problem Hand eczema L30.9 Active 618427200 Problem Schizoaffective disorder, bipolar type F25.0 Active 11111687 Problem Generalized anxiety disorder F41.1 Active 52044506 Problem Vaginal burning N94.9 Active 160661963 Problem Other chronic pain G89.29 Active 15643603 ALLERGIES Substance Reaction Event Type Date Status Seroquel leg pain Drug Allergy May, Active ENCOUNTERS Encounter Location Date Diagnosis [facility] [id number], [place] [address] Dec, [facility] [id number] [id number] October, Dental examination Z01.20 [facility] [id number] [place] [address] 34944- 1480 Sep, [facility] [id number] [place] [address] 23929- 8610 Sep, Hypertriglyceridemia E78.1 [facility] [address] [place] [address] 94771- 5487 Sep, Hypothyroidism E03.9 ; Prediabetes R73.09 ; Mild intermittent asthma, uncomplicated J45.20 ; Bulge of cervical disc without myelopathy M50.20 ; Other chronic pain G89.29 ; Hand eczema L30.9 ; Right anterior knee pain M25.561 ; Hypertriglyceridemia E78.1 and BMI 40.0-44.9, adult Z68.41 [place] [address] [address]- [address]43 Sep, [place] [address] 7[address]89- 4753 Sep, [place] [address] 25522- 2102 Jul, [place] [address] 32141- 0107 May, Acute non-recurrent maxillary sinusitis J01.00 [facility] [address] [address]894 Mar, Other viral agents as the cause of diseases classified elsewhere B97.89 and Acute upper respiratory infection, unspecified J06.9 [place] [id number] [place] [address] 87867- 1390 Mar, [place] [id number] [place] [address] 51580- 9362 Mar, Neck pain M54.2 [place] [address] 43700- 1918 27 Feb, 2017 Bulge of cervical disc without myelopathy M50.20 [place] [address] 75915- 4927 22 Feb, 2017 Neck pain M54.2 [place] [id number] [place] [address] 60264- 3820 11 Feb, 2017 [place] [address] 25417- 7500 Feb, Bulge of cervical disc without myelopathy M50.20 ; Hypertriglyceridemia E78.1 ; Hand eczema L30.9 and Hypothyroidism E03.9 [facility] [address] 39669- 4396 Jan, [facility] [address] [id number] October, 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 dental examination Z01.20 [place] [address] 56981- 1365 Sep, Generalized abdominal pain R10.84 [place] [address] 67752- 1038 Sep, Schizoaffective disorder, bipolar type F25.0 and Generalized anxiety disorder F41.1 [facility] [address] [place] [address] 70044 -4654 Sep, [facility] [address] [place] [address] 33910 -8076 Sep, Vaginal burning N94.9 and Vaginal mitzi B37.3 [facility] [address] [place] [address] 85390 -5079 Sep, Gastroenteritis K52.9 [facility] [address] [place] [address] 88323 -6462 Sep, Thrush B37.0 [facility] [address] [place] [address] 49647 -0995 Sep, Pharyngitis due to other organism J02.8 [place] [address] 31502- 2151 Sep, [facility] [address] [place] [address] 78138 -4665 Aug, Cervicalgia M54.2 [place] [address] 05793- 6376 Aug, Hypothyroidism E03.9 ; Dry skin L85.3 ; Plantar fasciitis, bilateral M72.2 and Other chronic pain G89.29 [facility] [address] [address]78 Aug, Abrasion T14.8 [facility] [address] [id number] Aug, Dental examination Z01.20 [facility] [address] [address]609 Aug, Excessive cerumen in right ear canal H61.21 ; Impacted cerumen of both ears 380.4 and Bronchitis J40 [facility] [address] 21799 [address]7680 Jul, Bilateral impacted cerumen H61.23 and Acute non-recurrent frontal sinusitis J01.[address] [address]- [address]40 May, Schizoaffective disorder, bipolar type F25.0 and Generalized anxiety disorder F41.[address] 75536- 5571 May, [address] 72316- 0126 May, Cervicalgia M54.2 and Hypertriglyceridemia E78.[address] 39507- 0747 May, [address] 55983- 3659 May, STD exposure Z20.2 and Well woman exam Z01.[address] 56771- 9600 May, [address] 56253- 3785 Mar, [address] [id number] [address] Dec, Pain in left knee M25.562 [facility] [id number], [place] [address] Dec, [facility] [address], [place] [address] 2547 Nov, [facility] [id number] [place] [address] 94471- 3485 October, [facility] [address], [place] [address] 8869 Aug, [facility] [id number] [place] [address] 81571- 5183 Jul, [facility] [id number] [place] [address] 75429- 7927 Jul, [facility] [id number] [place] [address] 71766- 9032 Jul, Plantar fasciitis M72.2 and 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 [facility] [address], [place] [address] 97[address] Jul, [facility] [address], [place] [address] 6695 Jun, Plantar fasciitis M72.2 and Physical exam Z00.00 [facility] [address], [place] [address]- 7082 Jun, [facility] [address], [place] [address]- 0755 Jun, [facility] [address], [place] [address]- 4560 Jun, [facility] [address], [place] [address]- 2084 May, [facility] [id number] [place] [address] 41190- 0373 17 May, 2015 Hypertriglyceridemia E78.1 [facility] [id number] [place] [address] 30506- 3935 16 May, 2015 Hypothyroidism E03.9 ; Prediabetes R73.09 and Hypertriglyceridemia E78.1 [facility] [id number] [place] [address] 28124- 8432 May, [facility] [id number] [place] [address] 55600- 2203 May, [facility] [id number] [place] [address] 68938- 3959 May, Hypothyroidism E03.9 ; Prediabetes R73.09 and Hypertriglyceridemia E78.1 [facility] [id number] [place] [address] 45319- 5133 Apr, Schizoaffective disorder, bipolar type F25.0 [facility] [id number] [place] [address] 63389- 1949 Mar, [facility] [id number] [place] [address] 70810- 3760 Mar, [facility] [id number] [place] [address] 88931- 2150 Mar, [facility] [address] [place] [address] 59552- 8452 30 Feb, 2015 [facility] [id number] [place] [address] 57968- 1238 24 Feb, 2015 [facility] [id number] [place] [address] 90106- 2289 16 Feb, 2015 [facility] [id number] [place] [address] 97145- 4382 15 Feb, 2015 Screen for STD (sexually transmitted disease) V74.5 ; Counseling on other sexually transmitted diseases V65.45 ; Back pain 724.5 ; Contact with or exposure to venereal diseases V01.6 and Pelvic pain in female 625.9 [facility] [id number] [place] [address] 56834- 2605 15 Feb, 2015 Schizoaffective disorder, unspecified 295.70 and Anxiety state, unspecified 300.00 [facility] [id number] [place] [address] 71539- 7678 14 Feb, 2015 [facility] [address] 52936- 0272 10 Feb, 2015 [facility] [id number] [place] [address] 35053- 1549 03 Feb, 2015 Impacted cerumen of both ears 380.4 and Mild intermittent asthma 493.90 [facility] [id number] [place] [address] 66411- 9526 Feb, [facility] [id number] [place] [address] 84127- 0020 Jan, [facility] [id number] [place] [address] 72687- 0697 Jan, [facility] [id number] [place] [address] 37141- 0682 Jan, [facility] [id number] [place] [address] 43541- 3803 Jan, [facility] [id number] [place] [address] 50666- 9472 Jan, [facility] [id number] [place] [address] 66247- 1095 Jan, [facility] [id number] [place] [address] 30120- 5606 Jan, [facility] [id number] [place] [address] 26567- 1740 Jan, [facility] [id number] [place] [address] 98059- 2309 Jan, [facility] [address], [place] [address]- 3796 Jan, [facility] [address] 9183 Jan, [facility] [address] 1844 Dec, Schizoaffective disorder, unspecified 295.70 [facility] [address] 2521 Dec, [facility] [address], [place] [address]- 7912 Dec, [facility] [address], [place] [address]- 4180 Dec, [facility] [address], [place] [address]- 3726 Dec, [facility] [address], [place] [address]- 7740 Dec, [facility] [address] [address] Dec, Dental examination V72.2 [facility] [address], [place] [address]- 6357 Dec, Schizoaffective disorder, unspecified 295.70 ; Persistent disorder of initiating 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.42 and Anxiety state, unspecified 300.00 [facility] [address] 4986 Dec, [facility] [address] 2958 Nov, High risk medication use V58.69 [facility] [address]- 3976 Nov, [facility] [address] 8776 Nov, [facility] [address], [place] [address]- 7955 Nov, High risk medication use V58.69 [facility] [id number] [place] [address] 91819- 5730 Nov, [facility] [address], [place] [address]- 5718 Nov, [facility] [id number] [place] [address] 82804- 9934 Nov, [facility] [id number] [place] [address] 76164- 4585 Nov, Hypothyroidism 244.9 ; Hypertriglyceridemia 272.1 and Prediabetes 790.29 [facility] [id number] [place] [address] 58022- 9357 Nov, [facility] [id number] [place] [address] 53399- 1499 Nov, [facility] [address] [place] [address] 55410- 3193 Nov, Bulge of cervical disc without myelopathy 722.0 ; Lumbar facet arthropathy 721.3 ; Family history of stroke V17.1 ; Hyperthyroidism 242.90 and 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 long-term current use of medication V58.69 [facility] [address], [place] [address]- 3706 Nov, [facility] [address], [place] [address]- 2131 October, [facility] [address], [place] [address]- 5864 October, [facility] [address], [place] [address]- 7012 October, [facility] [address], [place] [address]- 0512 October, [facility] [id number]- 8134 October, [facility] [address], [place] [address]- 9150 October, [facility] [address] 7233 October, Schizoaffective disorder, unspecified 295.70 and Persistent disorder of initiating 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.42 [facility] [address], [place] [address]- 8259 October, Schizoaffective disorder, unspecified 295.70 [facility] [id number] [place] [address] 501326- 1417 October, [facility] [address] 9300 October, [facility] [address], [place] [address]- 9477 October, [facility] [address], [place] [address]- 6763 Sep, Lumbago of lumbar region with sciatica 724.2 and Neck pain 723.1 [facility] [address], [place] [address]- 4493 Sep, [facility] [address], [place] [address]- 5180 Sep, [facility] [address], [place] [address]- 6223 Aug, [facility] [address], [place] [address]- 1337 Aug, [facility] [address] 2180 Aug, [facility] [address] 7102 Aug, [facility] [id number] [place] [address]- 6566 24 Aug, 2014 [facility] [place] [facility] [address] [id number] [place] [address]- 5745 24 Aug, 2014 [facility] [place] [facility] [address] [id number] [place] [address]- 2707 20 Aug, 2014 [facility] [place] [facility] [address] [id number] [place] [address]- 2236 20 Aug, 2014 [facility] [place] [facility] [address] [id number] [place] [address]- 0877 19 Aug, 2014 [facility] [place] [facility] [address] [id number] [place] [address]- 0112 19 Aug, 2014 [facility] [place] [facility] [address] [id number] [place] [address]- 3501 18 Aug, 2014 [facility] [place] [facility] [address] [id number] [place] [address]- 1623 18 Aug, 2014 [facility] [place] [facility] [address] [id number] [place] [address]- 0303 18 Aug, 2014 [facility] [place] [facility] [address] [id number] [place] [address]- 0208 18 Aug, 2014 [facility] [place] [facility] [address] [id number] [place] [address]- 8426 16 Aug, 2014 [facility] [place] [facility] [address] [id number] [place] [address]- 1151 12 Aug, 2014 [facility] [place] [facility] [address] [id number] [place] [address]- 1228 12 Aug, 2014 [facility] [place] [facility] [address] [id number] [place] [address]- 0602 12 Aug, 2014 [facility] [place] [facility] [address] [id number] [place] [address]- 6878 12 Aug, 2014 [facility] [place] [facility] [address] [id number] [place] [address]- 9244 09 Aug, 2014 [facility] [place] [facility] [address] [id number] [place] [address]- 8629 09 Aug, 2014 [facility] [place] [facility] [address] [id number] [place] [address]- 8904 Aug, 2014 [facility] [place] [facility] [address] [id number] [place] [address]- 8005 05 Aug, 2014 [facility] [place] [facility] [address] [id number] [place] [address]- 5713 Aug, 2014 [facility] [place] [facility] [address] [id number] [place] [address]- 8209 Aug, 2014 [facility] [place] [facility] [address] [id number] [place] [address]- 9140 Aug, 2014 [facility] [place] [facility] [address] [facility] [id number] [place] [address]- 1733 Aug, 2014 [facility] [place] [facility] [address] [id number] [place] [address]- 3832 Jul, 2014 [facility] [place] [facility] [address] [id number] [place] [address]- 2985 Jul, 2014 [facility] [place] [facility] [address] [facility] [id number] [place] [address]- 4073 Jul, 2014 [facility] [place] [facility] [address] [facility] [id number] [place] [address]- 4343 Jul, 2014 [facility] [place] [facility] [address] [id number], [place] [address]- 9501 Jul, 2014 [facility] [place] [facility] [address] [id number] [place] [address]- 1323 17 Jul, 2014 [facility] [place] [facility] [address] [id number] [place] [address]- 9550 17 Jul, 2014 [facility] [place] [facility] [address] [facility] [id number] [place] [address]- 4172 16 Jul, 2014 [facility] [place] [facility] [address] [id number] [place] [address]- 2457 16 Jul, 2014 [facility] [address] [id number] [place] [address]- 2867 Jul, [facility] [address] [id number] [place] [address]- 4996 Jun, [facility] [address] [id number] [place] [address]- 3847 Jun, [facility] [address] [id number] [place] [address]- 9837 Jun, [facility] [address] [id number] [place] [address]- 8741 Jun, [facility] [address] [id number] [place] [address]- 3988 Jun, [facility] [address] [id number] [place] [address]- 7310 Jun, [facility] [address] [id number] [place] [address]- 9984 Jun, [facility] [address] [id number] [place] [address]- 2174 May, [facility] [address] [id number] [place] [address]- 7522 May, [facility] [address] [id number] [place] [address] May, [facility] [address] [id number] [place] [address] May, [facility] [place] [facility] [address] [id number] [place] [address] May, [facility] [address] [id number] [place] [address] May, [facility] [address] [id number] [place] [address] May, [facility] [place] [facility] [address] [id number] [place] [address] May, [facility] [place] [facility] [address] [id number] [place] [address] May, [facility] [place] [facility] [address] [id number] [place] [address] May, [facility] [place] [facility] [address] [id number] [place] [address] Apr, [facility] [place] [facility] [address] [id number] [place] [address] Apr, [facility] [place] [facility] [address] [id number] [place] [address] Apr, [facility] [place] [facility] [address] [id number] [place] [address] Apr, [facility] [place] [facility] [address] [id number] [place] [address] Apr, [facility] [place] [facility] [address] [id number] [place] [address] Apr, [facility] [place] [facility] [address] [id number] [place] [address] Apr, [facility] [place] [facility] [address] [id number] [place] [address] Apr, [facility] [place] [facility] [address] [id number] [place] [address] Apr, [facility] [place] [facility] [address] [id number] [place] [address] Mar, [facility] [place] [facility] [address] [id number] [place] [address] Mar, [facility] [place] [facility] [address] [id number] [place] [address] Mar, [facility] [place] [facility] [address] [id number] [place] [address] Mar, [facility] [place] [facility] [address] [id number] [place] [address] Mar, [facility] [place] [facility] [address] [id number] [place] [address] 1990 Mar, [facility] [place] [facility] [address] [id number] [place] [address] Mar, [facility] [place] [facility] [address] [id number] [place] [address] Mar, [facility] [place] [facility] [address] [id number] [place] [address] Mar, [facility] [place] [facility] [address] [id number] [place] [address] Mar, [facility] [place] [facility] [address] [id number] [place] [address] Feb, [facility] [place] [facility] [address] [id number] [place] [address] Feb, [facility] [place] [facility] [address] [id number] [place] [address] Feb, [facility] [place] [facility] [address] [id number] [place] [address] Feb, [facility] [place] [facility] [address] [id number] [place] [address] Feb, [facility] [place] [facility] [address] [id number], [place] [address] Jan, [facility] [place] [facility] [address] [id number] [place] [address] Jan, [facility] [place] [facility] [address] [id number] [place] [address] Jan, [facility] [place] [facility] [address] [id number] [place] [address] Jan, [facility] [place] [facility] [address] [id number] [place] [address] Jan, [facility] [place] [facility] [address] [id number] [place] [address] Jan, [facility] [place] [facility] [address] [id number] [place] [address] Jan, [facility] [place] [facility] [address] [id number] [place] [address] Jan, [facility] [place] [facility] [address] [id number] [place] [address] Jan, [facility] [place] [facility] [address] [id number] [place] [address] Dec, [facility] [place] [facility] [address] [id number] [place] [address] Dec, [facility] [place] [facility] [address] [id number] [place] [address] Dec, [facility] [place] [facility] [address] [id number] [place] [address] Dec, [facility] [place] [facility] [address] [id number] [place] [address] Dec, [facility] [place] [facility] [address] [id number] [place] [address] Dec, [facility] [place] [facility] [address] [id number] [place] [address] Dec, [facility] [place] [facility] [address] [id number] [place] [address] Dec, [facility] [place] [facility] [address] [id number] [place] [address] Nov, [facility] [place] [facility] [address] [id number] [place] [address] Nov, [facility] [place] [facility] [address] [id number] [place] [address] Nov, [facility] [place] [facility] [address] [id number] [place] [address] Nov, [facility] [place] [facility] [address] [id number] [place] [address] Nov, [facility] [place] [facility] [address] [id number] [place] [address] Nov, [facility] [place] [facility] [address] [id number] [place] [address] Nov, [facility] [place] [facility] [address] [id number] [place] [address] Nov, [facility] [place] [facility] [address] [id number] [place] [address] Nov, [facility] [place] [facility] [address] [id number] [place] [address]687 Nov, [facility] [place] [facility] [address] [id number] [place] [address] Nov, [facility] [place] [facility] [address] [id number] [place] [address] Nov, [facility] [place] [facility] [address] [id number] [place] [address] October, [facility] [place] [facility] [address] [id number] [place] [address] October, [facility] [place] [facility] [address] [id number], [place] [address] October, [facility] [place] [facility] [address] [id number] [place] [address] October, [facility] [place] [facility] [address] [id number] [place] [address] October, [facility] [place] [facility] [address] [id number] [place] [address] Sep, [facility] [place] [facility] [address] [id number] [place] [address] Sep, [facility] [place] [facility] [address] [id number] [place] [address] Sep, [facility] [place] [facility] [address] [id number] [place] [address] Sep, [facility] [place] [facility] [address] [id number] [place] [address] Sep, [facility] [place] [facility] [address] [id number] [place] [address] Sep, [facility] [place] [facility] [address] [id number] [place] [address] Sep, [facility] [place] [facility] [address] [id number] [place] [address] Sep, [facility] [place] [facility] [address] [id number] [place] [address] Sep, [facility] [place] [facility] [address] [id number] [place] [address] Sep, [facility] [place] [facility] [address] [id number] [place] [address] Sep, [facility] [place] [facility] [address] [id number] [place] [address] Sep, [facility] [place] [facility] [address] [id number] [place] [address] Sep, [facility] [place] [facility] [address] [id number] [place] [address] Sep, [facility] [place] [facility] [address] [id number] [place] [address] Sep, [facility] [place] [facility] [address] [id number] [place] [address] Sep, [facility] [place] [facility] [address] [id number] [place] [address] Sep, [facility] [place] [facility] [address] [id number] [place] [address] Sep, [facility] [place] [facility] [address] [id number] [place] [address] Sep, [facility] [place] [facility] [address] [id number] [place] [address] Aug, [facility] [place] [facility] [address] [id number] [place] [address] Aug, [facility] [address] [id number] [place] [address] Aug, [facility] [place] [facility] [address] [id number] [place] [address] Aug, [facility] [address] [id number] [place] [address] Jun, [facility] [address] [id number] [place] [address]16 Jun, [facility] [place] [facility] [address] [id number] [place] [address] Mar, [facility] [place] [facility] [address] [id number] [place] [address] Mar, [facility] [place] [facility] [address] [id number] [place] [address] 1395 Nov, [facility] [place] [facility] [address] [id number] [place] [address] Sep, [facility] [place] [facility] [address] [id number] [place] [address] Jun, [facility] [place] [facility] [address] [id number] [place] [address] Jun, [facility] [place] [facility] [address] [id number] [place] [address] Apr, [facility] [place] [facility] [address] [id number] [place] [address] Apr, [facility] [address] [facility] [id number], [place] [address] Apr, [facility] [address] [facility] [id number], [place] [address] Mar, [facility] [address] [facility] [id number], [place] [address] Feb, IMMUNIZATIONS No Known Immunizations SOCIAL HISTORY Never Assessed REASON FOR VISIT cold symptoms , running nose, stuffy nose, cough x 1 month -- yasir velásquez PLAN OF CARE Activity Details Follow Up prn Reason: VITAL SIGNS Height 62 in 2017-06-09 Weight 217.0 lbs 2017-06-09 Temperature 98.0 degrees Fahrenheit 2017-06-09 Heart Rate 70 bpm 2017-06-09 Respiratory Rate 22 2017-06-09 BMI 39.69 kg/m2 2017-06-09 Blood pressure systolic 136 mmHg 2017-06-09 Blood pressure diastolic 80 mmHg 2017-06-09 MEDICATIONS Medication Instructions Dosage Frequency Start Date End Date Duration Status Fluticasone Propionate 50 MCG/ACT Nasally Once a day 1 spray in each nostril 24h Aug, 30 day(s) Not-Taking Tessalon Perles 100 mg Orally Three times a day 1 capsule as needed 8h May, Jun, 10 days Active Gabapentin 300 MG Orally Three times a day 1 capsule 8h 30 days Not- Taking Nystatin [id number] UNIT/ML Mouth/Throat Four times a day 4 ml 6h Sep, 30 day(s) Not-Taking Augmentin 875-125 MG Orally every 12 hrs 1 tablet 12h May, Jun, 10 day(s) Active Minipress 2 MG Orally Once a day qHS 1 capsule Not-Taking Debrox 6.5 % 5-10 drops in left ear twice daily for up to 4 days Feb Not-Taking Pravastatin Sodium 20 MG Orally Once a day 1 tablet 24h 90 days Active Hydrocodone-Acetaminophen 7.5-325 MG Orally every 4 hrs 1 tablet as needed 4h Not-Taking cyclobenzaprine 10 mg 1 tablet 2 times per day PRN Aug, Not-Taking Zyrtec Allergy 10 MG Orally Once a day 1 tablet as needed 24h Not- Taking Synthroid 75 MCG Orally Once a day 1 tablet 24h 30 Not-Taking Lexapro 20 MG Orally Once a day 1 tablet 24h 05 May, 2014 Not-Taking Invega Sustenna 39 MG/0.25ML 0.5 ml Active Diflucan 150 MG Orally Once a day 1 tablet 24h 13 May, 2016 1 dose Not -Taking Dramamine Not-Taking Ibuprofen 600 MG Orally Three times a day 1 tablet with food or milk as needed 8h 30 Active Alprazolam 0.5 MG Orally 1times a day PRN anxiety MUST LAST 30 DAYS 1 tablet October, Not-Taking Depakote ER 250 MG Active Albuterol Sulfate HFA 108 (90 Base) MCG/ACT Inhalation every 4 hrs 2 puffs as needed 4h Feb, Active Haloperidol 5 MG Orally Twice a day 1 tablet 12h Not-Taking RESULTS No Results PROCEDURES No Known procedures [...] History [facility] 03/2016 Hospitalization History [place] x 30 days
--- OUTSIDE RECORDS SUMMARY | 2018-01-10 21:55 | XMS REPORT ---
Author Author CHRISTO ADELA [facility] Address [address] [place] [address] Care Team Providers Care Food And Beverage Director Name Role Phone ADELA VILLAFUERTE Unavailable PROBLEMS Type Condition ICD9-CM Code KSQ84-[place] Code Onset Dates Condition Status SNOMED Code Problem Hypertriglyceridemia E78.1 Active 674415492 Problem Mild intermittent asthma, uncomplicated J45.20 Active 684287563 Problem Prediabetes R73.09 Active 4880126 Problem Cervical dysplasia N87.9 Active 86852729 Problem Bulge of cervical disc without myelopathy M50.20 Active 953794668 Problem Lumbar facet arthropathy M46.96 Active 237844404 Problem Hypothyroidism E03.9 Active 81687891 Problem Bulging of cervical intervertebral disc M50.20 Active 343394288 Problem Hand eczema L30.9 Active 584150076 Problem Schizoaffective disorder, bipolar type F25.0 Active 25678913 Problem Generalized anxiety disorder F41.1 Active 56692185 Problem Vaginal burning N94.9 Active 129452795 Problem Other chronic pain G89.29 Active 81782224 ALLERGIES Substance Reaction Event Type Date Status Seroquel leg pain Drug Allergy Feb, Active ENCOUNTERS Encounter Location Date Diagnosis [facility] [id number] [id number] October, [facility] [id number] [place] [address] 47774140- 8073 Sep, Hypothyroidism E03.9 ; Prediabetes R73.09 ; Mild intermittent asthma, uncomplicated J45.20 ; Bulge of cervical disc without myelopathy M50.20 ; Other chronic pain G89.29 ; Hand eczema L30.9 ; Right anterior knee pain M25.561 ; Hypertriglyceridemia E78.1 and BMI 40.0-44.9, adult Z68.41 [facility] [id number] [place] [address] 56659- 8811 Sep, [facility] [address] 81490- 9375 Sep, [facility] [id number] [place] [address] 01218- 0380 Jul, [facility] [id number] [place] [address] 29950- 3598 May, Acute non-recurrent maxillary sinusitis J01.00 [facility] [id number] [place] [address] 98334 -8772 Mar, Other viral agents as the cause of diseases classified elsewhere B97.89 and Acute upper respiratory infection, unspecified J06.9 [facility] [id number] [place] [address] 70212- 8920 Mar, [facility] [address] 66326- 7099 Mar, Neck pain M54.2 [facility] [id number] [place] [address] 53684- 7186 Feb, Bulge of cervical disc without myelopathy M50.20 [facility] [id number] [place] [address] 96598- 0340 Feb, Neck pain M54.2 [facility] [address] 74152- 0386 Feb, [facility] [id number] [place] [address] 14699- 0518 Feb, Bulge of cervical disc without myelopathy M50.20 ; Hypertriglyceridemia E78.1 ; Hand eczema L30.9 and Hypothyroidism E03.9 [facility] [id number] [place] [address] 94170- 8234 Jan, [facility] [address] [id number] October, 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 dental examination Z01.20 [address] 60681- 0519 Sep, Generalized abdominal pain R10.84 [place] [address] 91526- 7350 Sep, Schizoaffective disorder, bipolar type F25.0 and Generalized anxiety disorder F41.1 [facility] [address] [place] [address] 51114 -2807 Sep, [facility] [address] [place] [address] 56628 -2556 Sep, Vaginal burning N94.9 and Vaginal mitzi B37.3 [facility] [address] [address] -5779 Sep, Gastroenteritis K52.9 [facility] [address] 71266 -4280 Sep, Thrush B37.0 [facility] [address] 12165 -9432 Sep, Pharyngitis due to other organism J02.[address] 43543- 7636 Sep, [facility] [address] 33644 -9803 Aug, Cervicalgia M54.2 [place] [address] 39121- 0953 09 Aug, 2016 Hypothyroidism E03.9 ; Dry skin L85.3 ; Plantar fasciitis, bilateral M72.2 and Other chronic pain G89.29 [facility] [address] [place] [address] 04909 -1602 Aug, Abrasion T14.8 [facility] [address] [id number] Aug, Dental examination Z01.20 [facility] [id number] [place] [address] 52968 -9045 Aug, Excessive cerumen in right ear canal H61.21 ; Impacted cerumen of both ears 380.4 and Bronchitis J40 [facility] [id number] [place] [address] 41382 -9484 24 Jul, 2016 Bilateral impacted cerumen H61.23 and Acute non-recurrent frontal sinusitis J01.10 [place] [address] 68614- 7710 May, Schizoaffective disorder, bipolar type F25.0 and Generalized anxiety disorder F41.1 [place] [address] 37494- 5229 May, [place] [address] 54203- 3758 May, Cervicalgia M54.2 and Hypertriglyceridemia E78.1 [place] [address] 94070- 8523 May, [place] [address] 85331- 8009 May, STD exposure Z20.2 and Well woman exam Z01.419 [place] [id number] [place] [address] 34204- 7379 May, [place] [address] 77829- 2915 Mar, [place] [facility] [id number] [place] [address] 53447- 8650 Dec, Pain in left knee M25.562 [place] [id number] [place] [address] 40188- 5352 Dec, [place] [facility] [id number] [place] [address] 97772- 3124 Nov, [place] [facility] [id number] [address]- 8059 October, [facility] [id number] [place] [address] 08234- 4833 Aug, [facility] [address], [place] [address]- 9080 Jul, [facility] [id number] [place] [address] 46142- 3110 Jul, [facility] [id number] [place] [address] 05576- 6596 Jul, Plantar fasciitis M72.2 and 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 [facility] [id number] [place] [address] 20969- 9881 Jul, [facility] [id number] [place] [address] 35643- 3366 Jun, Plantar fasciitis M72.2 and Physical exam Z00.00 [facility] [id number] [place] [address] 86520- 0506 Jun, [facility] [id number] [place] [address] 66136- 1519 Jun, [facility] [address], [place] [address]- 3166 Jun, [facility] [address], [place] [address]- 1047 May, [facility] [address], [place] [address]- 5730 May, Hypertriglyceridemia E78.1 [facility] [id number] [place] [address] 36416- 0646 May, Hypothyroidism E03.9 ; Prediabetes R73.09 and Hypertriglyceridemia E78.1 [facility] [address] [place] [address] 76323- 3756 May, [facility] [id number] [place] [address] 60623- 3219 May, [facility] [id number] [place] [address] 36327- 9047 May, Hypothyroidism E03.9 ; Prediabetes R73.09 and Hypertriglyceridemia E78.1 [facility] [id number] [place] [address] 42741- 3780 Apr, Schizoaffective disorder, bipolar type F25.0 [facility] [id number] [place] [address] 53207- 2073 Mar, [facility] [id number] [place] [address] 56838- 8600 Mar, [facility] [id number] [place] [address] 35816- 6427 Mar, [facility] [id number] [place] [address] 47544- 1663 30 Feb, 2015 [facility] [id number] [place] [address] 65253- 2503 24 Feb, 2015 [facility] [id number] [place] [address] 91875- 5672 16 Feb, 2015 [facility] [id number] [place] [address] 41233- 7712 Feb, Screen for STD (sexually transmitted disease) V74.5 ; Counseling on other sexually transmitted diseases V65.45 ; Back pain 724.5 ; Contact with or exposure to venereal diseases V01.6 and Pelvic pain in female 625.9 [facility] [id number] [place] [address] 68462- 0386 15 Feb, 2015 Schizoaffective disorder, unspecified 295.70 and Anxiety state, unspecified 300.00 [facility] [id number] [place] [address] 07673- 6137 14 Feb, 2015 [facility] [address] [place] [address]- 9522 Feb, [facility] [id number] [place] [address] 00340- 1904 Feb, Impacted cerumen of both ears 380.4 and Mild intermittent asthma 493.90 [facility] [address] [address]- 8539 Feb, [facility] [id number] [place] [address] 36370- 7826 Jan, [facility] [id number] [place] [address] 75484- 6825 Jan, [facility] [id number] [place] [address] 80470- 6845 Jan, [facility] [id number] [place] [address] 41560- 4426 Jan, [facility] [id number] [place] [address] 66524- 7889 Jan, [facility] [address] [place] [address] 97061- 7624 Jan, [facility] [address] [place] [address] 45685- 7085 Jan, [facility] [address], [place] [address]- 4460 Jan, [facility] [address], [place] [address]- 4268 Jan, [facility] [address], [place] [address]- 1891 Jan, [facility] [address] [place] [address] 56525- 5911 Jan, [facility] [address], [place] [address]- 8601 Dec, Schizoaffective disorder, unspecified 295.70 [facility] [address] 4359 Dec, 2014 [facility] [address], [place] [address]- 6892 Dec, 2014 [facility] [address] [address]- 8485 14 Dec, 2014 [facility] [id number] [place] [address] 581766- 3029 Dec, 2014 [facility] [address], [place] [address]- 2377 Dec, 2014 [facility] [address] [place] [address] [id number] Dec, Dental examination V72.2 [facility] [address], [place] [address]- 3769 Dec, Schizoaffective disorder, unspecified 295.70 ; Persistent disorder of initiating 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.42 and Anxiety state, unspecified 300.00 [facility] [address], [place] [address]- 2106 Dec, [facility] [address] [place] [address] 57171- 5846 Nov, High risk medication use V58.69 [facility] [address], [place] [address]- 3371 Nov, [facility] [address], [place] [address]- 9738 Nov, [facility] [id number], [place] [address]- 0660 Nov, High risk medication use V58.69 [facility] [address] 2413 Nov, [facility] [id number], [place] [address]- 1647 Nov, [facility] [id number] [place] [address] 03968- 7316 Nov, [facility] [id number] [place] [address] 74395- 0375 Nov, Hypothyroidism 244.9 ; Hypertriglyceridemia 272.1 and Prediabetes 790.29 [facility] [id number] [place] [address] 79992- 9435 Nov, [facility] [id number] [place] [address] 64473- 4174 Nov, [facility] [id number] [place] [address] 01400- 8057 Nov, Bulge of cervical disc without myelopathy 722.0 ; Lumbar facet arthropathy 721.3 ; Family history of stroke V17.1 ; Hyperthyroidism 242.90 and 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 long-term current use of medication V58.69 [facility] [id number] [place] [address] 01531- 6092 Nov, [facility] [id number] [place] [address] 78898- 6644 October, [facility] [id number] [place] [address] 04366- 7223 October, [facility] [id number] [place] [address] 75684- 8549 October, [facility] [id number] [place] [address] 85634- 3014 October, [facility] [id number] [place] [address] 72406- 3887 October, [facility] [id number] [place] [address] 76058- 7227 October, [facility] [id number] [place] [address] 96996- 4928 October, Schizoaffective disorder, unspecified 295.70 and Persistent disorder of initiating 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.42 [facility] [address], [place] [address]- 2573 October, Schizoaffective disorder, unspecified 295.70 [facility] [id number] [place] [address] 90770- 2226 October, [facility] [id number] [place] [address] 62019- 7584 October, [facility] [id number] [place] [address] 22770- 7903 October, [facility] [id number] [place] [address] 94563- 3975 Sep, Lumbago of lumbar region with sciatica 724.2 and Neck pain 723.1 [facility] [address], [place] [address]- 9424 Sep, [facility] [id number] [place] [address] 63469- 6601 Sep, [facility] [id number] [place] [address] 62914- 0375 Aug, [facility] [id number] [place] [address] 19431- 7779 Aug, [facility] [address], [place] [address]- 1058 Aug, [facility] [address], [place] [address]- 6704 Aug, [facility] [address], [place] [address]- 1148 Aug, [facility] [id number] [place] [address] 27085- 8634 Aug, [facility] [address], [place] [address]- 8616 Aug, [facility] [id number] [place] [address] 11099- 0206 20 Aug, 2014 [facility] [place] [facility] [address] [id number] [place] [address]- 5207 19 Aug, 2014 [facility] [place] [facility] [address] [id number] [place] [address]- 5824 19 Aug, 2014 [facility] [place] [facility] [address] [id number] [place] [address]- 4179 18 Aug, 2014 [facility] [place] [facility] [address] [id number] [place] [address]- 8306 18 Aug, 2014 [facility] [place] [facility] [address] [id number] [place] [address]- 7105 18 Aug, 2014 [facility] [place] [facility] [address] [id number] [place] [address]- 6888 18 Aug, 2014 [facility] [place] [facility] [address] [id number] [place] [address]- 6775 16 Aug, 2014 [facility] [place] [facility] [address] [id number] [place] [address]- 4220 Aug, [facility] [place] [facility] [address] [id number] [place] [address]- 4751 Aug, [facility] [place] [facility] [address] [id number] [place] [address]- 1561 Aug, [facility] [place] [facility] [address] [id number] [place] [address]- 5734 Aug, [facility] [place] [facility] [address] [id number] [place] [address]- 5002 Aug, [facility] [place] [facility] [address] [id number] [place] [address]- 6356 Aug, [facility] [place] [facility] [address] [id number] [place] [address]- 2935 Aug, [facility] [place] [facility] [address] [id number] [place] [address]- 4998 05 Aug, 2014 [facility] [place] [facility] [address] [id number] [place] [address]- 8564 04 Aug, 2014 [facility] [place] [facility] [address] [id number] [place] [address]- 3230 Aug, 2014 [facility] [place] [facility] [address] [id number] [place] [address]- 0263 Aug, 2014 [facility] [place] [facility] [address] [id number] [place] [address]- 5643 Aug, [facility] [place] [facility] [address] [id number] [place] [address]- 2888 Jul, 2014 [facility] [place] [facility] [address] [id number] [place] [address]- 1804 Jul, 2014 [facility] [place] [facility] [address] [facility] [id number] [place] [address]- 3854 Jul, 2014 [facility] [place] [facility] [address] [facility] [id number] [place] [address]- 9495 Jul, 2014 [facility] [place] [facility] [address] [id number] [place] [address]- 4629 Jul, 2014 [facility] [place] [facility] [address] [facility] [id number] [place] [address]- 8237 Jul, 2014 [facility] [place] [facility] [address] [facility] [id number] [place] [address]- 6440 Jul, 2014 [facility] [place] [facility] [address] [facility] [id number] [place] [address]- 8870 16 Jul, 2014 [facility] [place] [facility] [address] [id number] [place] [address]- 3165 16 Jul, 2014 [facility] [place] [facility] [address] [id number] [place] [address]- 3154 Jul, 2014 [facility] [place] [facility] [address] [facility] [id number] [place] [address]- 7925 Jun, [facility] [place] [facility] [address] [facility] [id number] [place] [address]- 7668 Jun, [facility] [place] [facility] [address] [id number] [place] [address]- 4763 Jun, [facility] [place] [facility] [address] [id number] [place] [address]- 3189 Jun, [facility] [place] [facility] [address] [id number] [place] [address]- 9487 Jun, [facility] [place] [facility] [address] [id number] [place] [address]- 0918 Jun, [facility] [place] [facility] [address] [id number] [place] [address]- 6928 Jun, [facility] [place] [facility] [address] [id number] [place] [address]- 1694 May, [facility] [place] [facility] [address] [id number] [place] [address]- 0064 May, [facility] [place] [facility] [address] [id number] [place] [address]- 2125 May, [facility] [place] [facility] [address] [id number] [place] [address]- 0060 May, [facility] [place] [facility] [address] [id number] [place] [address] May, [facility] [place] [facility] [address] [id number] [place] [address] May, [facility] [place] [facility] [address] [id number] [place] [address] May, [facility] [place] [facility] [address] [id number] [place] [address] May, [facility] [place] [facility] [address] [id number] [place] [address] May, [facility] [place] [facility] [address] [id number] [place] [address] May, [facility] [place] [facility] [address] [id number] [place] [address] Apr, [facility] [place] [facility] [address] [id number] [place] [address] Apr, [facility] [place] [facility] [address] [id number] [place] [address] Apr, [facility] [place] [facility] [address] [id number] [place] [address] Apr, [facility] [place] [facility] [address] [id number] [place] [address] Apr, [facility] [place] [facility] [address] [id number] [place] [address] Apr, [facility] [place] [facility] [address] [id number] [place] [address] Apr, [facility] [place] [facility] [address] [id number] [place] [address] Apr, [facility] [place] [facility] [address] [id number] [place] [address] Apr, [facility] [place] [facility] [address] [id number] [place] [address] Mar, [facility] [place] [facility] [address] [id number] [place] [address] Mar, [facility] [place] [facility] [address] [id number] [place] [address] Mar, [facility] [place] [facility] [address] [id number] [place] [address] Mar, [facility] [place] [facility] [address] [id number] [place] [address] Mar, [facility] [place] [facility] [address] [id number] [place] [address] Mar, [facility] [place] [facility] [address] [id number] [place] [address] Mar, [facility] [place] [facility] [address] [id number] [place] [address] Mar, [facility] [place] [facility] [address] [id number] [place] [address] Mar, [facility] [place] [facility] [address] [id number] [place] [address] Mar, [facility] [place] [facility] [address] [id number] [place] [address] Feb, [facility] [place] [facility] [address] [id number] [place] [address] Feb, [facility] [place] [facility] [address] [id number] [place] [address] Feb, [facility] [place] [facility] [address] [id number] [place] [address] Feb, [facility] [place] [facility] [address] [id number] [place] [address] Feb, [facility] [place] [facility] [address] [id number] [place] [address] Jan, [facility] [place] [facility] [address] [id number] [place] [address] Jan, [facility] [place] [facility] [address] [id number] [place] [address] Jan, [facility] [place] [facility] [address] [address] [id number] [place] [address] Jan, [facility] [place] [facility] [address] [id number] [place] [address] Jan, [facility] [place] [facility] [address] [id number] [place] [address] Jan, [facility] [place] [facility] [address] [id number] [place] [address] Jan, [facility] [place] [facility] [address] [id number] [place] [address] Jan, [facility] [place] [facility] [address] [id number] [place] [address] Jan, [facility] [place] [facility] [address] [id number] [place] [address] Dec, [facility] [place] [facility] [address] [id number] [place] [address] Dec, [facility] [place] [facility] [address] [id number] [place] [address] Dec, [facility] [place] [facility] [address] [id number] [place] [address] Dec, [facility] [place] [facility] [address] [id number] [place] [address] Dec, [facility] [place] [facility] [address] [id number] [place] [address] Dec, [facility] [place] [facility] [address] [id number] [place] [address] Dec, [facility] [place] [facility] [address] [id number] [place] [address] Dec, [facility] [place] [facility] [address] [id number] [place] [address] Nov, [facility] [place] [facility] [address] [id number] [place] [address] Nov, [facility] [place] [facility] [address] [id number] [place] [address] Nov, [facility] [place] [facility] [address] [id number] [place] [address] Nov, [facility] [place] [facility] [address] [id number] [place] [address] Nov, [facility] [place] [facility] [address] [id number] [place] [address] Nov, [facility] [place] [facility] [address] [id number] [place] [address] Nov, [facility] [place] [facility] [address] [id number] [place] [address] Nov, [facility] [place] [facility] [address] [id number] [place] [address] Nov, [facility] [place] [facility] [address] [id number] [place] [address] Nov, [facility] [place] [facility] [address] [id number] [place] [address] Nov, [facility] [place] [facility] [address] [id number] [place] [address] Nov, [facility] [place] [facility] [address] [id number] [place] [address] October, [facility] [place] [facility] [address] [id number] [place] [address] October, [facility] [place] [facility] [address] [id number] [place] [address] October, [facility] [place] [facility] [address] [id number] [place] [address] October, [facility] [place] [facility] [address] [id number] [place] [address] October, [facility] [place] [facility] [address] [id number] [place] [address] Sep, [facility] [place] [facility] [address] [id number] [place] [address] Sep, [facility] [place] [facility] [address] [id number] [place] [address] 78[address] Sep, [facility] [place] [facility] [address] [id number] [place] [address] Sep, [facility] [place] [facility] [address] [id number] [place] [address] Sep, [facility] [place] [facility] [address] [id number] [place] [address] 6[address] Sep, [facility] [place] [facility] [address] [id number] [place] [address] Sep, [facility] [place] [facility] [address] [id number] [place] [address] Sep, [facility] [place] [facility] [address] [id number] [place] [address] Sep, [facility] [place] [facility] [address] [id number] [place] [address] Sep, [facility] [place] [facility] [address] [id number] [place] [address] Sep, [facility] [place] [facility] [address] [id number] [place] [address] Sep, [facility] [place] [facility] [address] [id number] [place] [address] 16[address] Sep, [facility] [place] [facility] [address] [id number] [place] [address] Sep, [facility] [place] [facility] [address] [id number] [place] [address] Sep, [facility] [place] [facility] [address] [id number] [place] [address] Sep, [facility] [place] [facility] [address] [id number] [place] [address] 26[address] Sep, [facility] [place] [facility] [address] [id number] [place] [address] Sep, [facility] [place] [facility] [address] [id number] [place] [address] Sep, [facility] [place] [facility] [address] [id number] [place] [address] Aug, [facility] [place] [facility] [address] [id number] [place] [address] 6667 Aug, [facility] [address] [id number] [place] [address] 94[address] Aug, [facility] [address] [id number] [place] [address] Aug, [facility] [address] [id number] [place] [address] 44[address] Jun, [facility] [address] [id number] [place] [address] 38[address] Jun, [facility] [address] [id number] [place] [address] Mar, [facility] [address] [facility] [id number] [place] [address] Mar, [facility] [address] [facility] [id number] [place] [address] 6[address] Nov, [facility] [address] [facility] [id number] [place] [address] 98[address] Sep, [facility] [address] [facility] [id number] [place] [address] 1390 30 Jun, 2012 [facility] [address] [facility] [id number] [place] [address] 16 Jun, 2012 [facility] [address] [facility] [id number] [place] [address]851 Apr, [facility] [address] [facility] [id number], [place] [address] Apr, [facility] [address] [facility] [id number] [place] [address]80 Apr, [facility] [address] [facility] [id number] [place] [address] 28 Mar, 2010 [facility] [address] [facility] [id number] [address] 14 Feb, 2010 IMMUNIZATIONS No Known Immunizations SOCIAL HISTORY Never Assessed REASON FOR VISIT Dizziness, pt. states here for her fingers states they are cracking and bleeding again---[place],[facility] PLAN OF CARE Activity Details Follow Up 3 Months Reason: VITAL SIGNS Height 62 in 2017-02-23 Weight 195.5 lbs 2017-02-23 Temperature 97.8 degrees Fahrenheit 2017-02-23 Heart Rate 66 bpm 2017-02-23 Respiratory Rate 18 2017-02-23 BMI 35.75 kg/m2 2017-02-23 Blood pressure systolic 133 mmHg 2017-02-23 Blood pressure diastolic 77 mmHg 2017-02-23 MEDICATIONS Medication Instructions Dosage Frequency Start Date End Date Duration Status Betamethasone Dipropionate 0.05 % Externally Once a day 1 application to affected area 24h Feb, Feb, 14 days Active Pravastatin Sodium 20 MG Orally Once a day 1 tablet 24h 90 days Active Ibuprofen 600 MG Orally Three times a day 1 tablet with food or milk as needed 8h Feb, Mar, 30 day(s) Active Albuterol Sulfate HFA 108 [...] History [facility] 03/2016 Hospitalization History [place] x 30 days
[2018-01-10] MEDS ORDERED: NS IV 1000 ML 1,000 ML IV ONE (22:27)
[2018-01-10 22:34] LABS: BILIRUBIN,URINE NEGATIVE (NEGATIVE); CLARITY,URINE CLEAR; COLOR,URINE YELLOW; GLUCOSE, URINE (UA) 4+ (NEGATIVE); KETONES,URINE NEGATIVE (NEGATIVE); LEUKOCYTE ESTERASE ,URINE NEGATIVE (NEGATIVE); NITRITE,URINE NEGATIVE (NEGATIVE); PH,URINE 6 (5-9); PROTEIN,URINE NEGATIVE (NEGATIVE); UROBILINOGEN,URINE NORMAL (NORMAL)
[2018-01-10 22:45] LABS: BASOPHILS % (AUTO) 0 % (0-10); EOSINOPHILS # (AUTO) 0.3 10^3/uL (0.0-0.3); EOSINOPHILS % (AUTO) 2 % (0-10); HEMATOCRIT 36 % (35-52); HEMOGLOBIN 13.7 G/DL (11.5-16.0); LYMPHOCYTES # (AUTO) 4.4 X 10^3 (1.0-4.0); LYMPHOCYTES % (AUTO) 31 % (12-44); MEAN CORPUSCULAR HEMOGLOBIN 33 PG (25-34); MEAN CORPUSCULAR HGB CONC 38 G/DL (32-36); MEAN CORPUSCULAR VOLUME 87 FL (80-99); MEAN PLATELET VOLUME 9.5 FL (7.4-10.4); MONOCYTES # (AUTO) 1.3 X 10^3 (0.0-1.0); MONOCYTES % (AUTO) 9 % (0-12); NEUTROPHILS # (AUTO) 8.4 X 10^3 (1.8-7.8); NEUTROPHILS % (AUTO) 58 % (42-75); PLATELET COUNT 302 10^3/uL (130-400); RED BLOOD COUNT 4.17 10^6/uL (4.35-5.85); RED CELL DISTRIBUTION WIDTH 11.7 % (10.0-14.5); WHITE BLOOD COUNT 14.5 10^3/uL (4.3-11.0)
--- NOTE | 2018-01-10 22:46 | ED General ---
General Stated Complaint: BS AT 415 Source of Information: Patient, Other (MOM DOES ALL TALKING FOR PT--STATES SHE IS ALSO HER DPOA) History of Present Illness Date Seen by Provider: Jan 10, 2018 Time Seen by Provider: 22:25 Initial Comments PT ARRIVES VIA POV WITH MOM PT STATES THEY CHECKED BLOOD GLUCOSE TONIGHT AND WAS 415, SO CAME STRAIGHT HERE PT WAS SEEN BY DR. LOOMIS ON Monday01/08/18 FOR VAGINAL COMPLAINTS AND WAS NOTED TO HAVE YEAST INFECTION. LAB WAS ORDERED BY DR. LOOMIS, AND RESULTS WERE CALLED TO PT YESTERDAY, WITH FINDING OF BLOOD GLUCOSE OF 430 AND HGB A1C 9.3 PT DOES NOT HAVE A HISTORY OF DIABETES, HAS NOT BEEN DIAGNOSED WITH DIABETES PRIOR TO YESTERDAY PT WAS SEEN AT [facility] YESTERDAY FOR THIS PROBLEM AFTER BEING INFORMED OF THE ABOVE, AND BLOOD GLUCOSE DONE THERE WAS "TOO HIGH TO READ" ON GLUCOMETER. PT WAS SENT HOME WITH RX FOR METFORMIN AND TOLD TO COME TO ER IF HER BLOOD SUGAR WAS HIGH AGAIN. NO INSTRUCTIONS ON DIET WERE GIVEN, PER MOM. PT TOOK FIRST DOSE OF METFORMIN LATE THIS AFTERNOON. PT HAS NOT CHECKED HER BLOOD GLUCOSE AT HOME PRIOR TO TONIGHT. C/O HEADACHE ALL DAY--TOOK IBUPROFEN X 1 THIS AM--NO RELIEF C/O FEELING DIZZY ALL DAY NO NAUSEA/VOMITING/DIARRHEA OR ABDOMINAL PAIN C/O THIRST AND URINARY FREQUENCY C/O BEING VERY TIRED AND SLEEPING ALOT PCP: [facility] Allergies and Home Medications Allergies Coded Allergies: No Known Drug Allergies (Unverified , 08/15/12) Home Medications Acyclovir 400 Mg Tablet, 400 MG PO TID PRN for COLD SORE OUTBREAK, (Reported) Albuterol Sulfate 6.7 Gm Hfa.aer.ad, 2 PUFF IH Q4H PRN for SHORTNESS OF BREATH, (Reported) Atorvastatin Calcium 40 Mg Tablet, 40 MG PO HS, (Reported) Divalproex Sodium 500 Mg Tab.er.24h, 1,000 MG PO HS, (Reported) Divalproex Sodium 250 Mg Tab.er.24h, 250 MG PO DAILY, (Reported) Docusate Sodium 100 Mg Capsule, 100 MG PO BID PRN for CONSTIPATION Prescribed by: VENKAT LOOMIS on 04/29/15 0834 Haloperidol 10 Mg Tablet, 10 MG PO HS, (Reported) Haloperidol 5 Mg Tablet, 5 MG PO DAILY, (Reported) Hydroxyzine HCl 25 Mg Tablet, 25-50 MG PO DAILY, (Reported) Ibuprofen 600 Mg Tablet, 600 MG PO TID PRN for PAIN, (Reported) Ibuprofen 600 Mg Tablet, 600 MG PO Q6H Prescribed by: VENKAT LOOMIS on 04/29/15 0834 Levothyroxine Sodium 75 Mcg Tablet, 75 MCG PO HS, (Reported) Metformin HCl 500 Mg Tab.er.24, 500 MG PO BID, (Reported) Paliperidone 9 Mg Tab.er.24, 9 MG PO DAILY, (Reported) Ranitidine HCl 150 Mg Capsule, 150 MG PO BID, (Reported) Trazodone HCl 150 Mg Tablet, 150 MG PO HS, (Reported) Patient Home Medication List Home Medication List Reviewed: Yes Review of Systems Constitutional: see HPI; No chills, No diaphoresis; dizziness; No fever; malaise, weakness EENTM: no symptoms reported Respiratory: no symptoms reported Cardiovascular: no symptoms reported Gastrointestinal: no symptoms reported Genitourinary: see HPI, frequency Musculoskeletal: no symptoms reported Skin: no symptoms reported Psychiatric/Neurological: See HPI, Headache; Denies Numbness, Denies Paresthesia Hematologic/Lymphatic: No Symptoms Reported Immunological/Allergic: no symptoms reported Past Lpdylny-Kzfwzw-Rywflb Hx Patient Social History Alcohol Use: Past History (HISTORY OF HEAVY USE, NONE FOR 7-8 MONTHS, PER PT ON 01/10/18) Recreational Drug Use: Yes (THC) Smoking Status: Current Everyday Smoker (> 1 PPD) Type Used: Cigarettes Recent Foreign Travel: No Contact w/Someone Who Travel: No Recent Hopitalizations: No Seasonal Allergies Seasonal Allergies: No Past Medical History Surgeries: Yes (CONE BIOPSY OF CERVIX; URETERAL SURGERY FOR REFLUX AGE 9; HYST WITH INTACT OVARIES: PER MOM, "HOLE IN STOMACH-FROM SEX" REPAIRED. 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 OCCASIONAL DIARRHEA) Gastroesophageal Reflux Musculoskeletal: Yes Arthritis, Chronic Back Pain Endocrine: Yes (NEW DX OF DIABETES 01/09/18) Diabetes, Non-Insulin dep HEENT: No Cancer: No Psychosocial: Yes (PARANOID SCHIZOPHRENIA; MULTIPLE PERSONALITY DISORDER; BORDERLINE PERSONALITY; NIGHTMARES; ) Sleep Difficulties, Anxiety, PTSD, Personality Disorder, Schizophrenia, Depression Integumentary: No Blood Disorders: No Adverse Reaction/Blood Tranf: No Family Medical History Alcoholism 19 FATHER Thyroid disease 19 MOTHER No Pertinent Family Hx Physical Exam Vital Signs Vital Signs - First Documented 01/10/18 22:22 Temp 98.4 Pulse 97 Resp 20 B/P (MAP) 154/92 (112) Pulse Ox 92 O2 Delivery Room Air Capillary Refill : Height, Weight, BMI Height: 5'2.00" Weight: 200lbs. oz. 90.056673bk; BMI Method:Stated General Appearance: No Apparent Distress, Obese, Other (MILDLY LETHRAGIC) HEENT: PERRL/EOMI Neck: Normal Inspection Respiratory: Normal Breath Sounds, No Accessory Muscle Use, No Respiratory Distress Cardiovascular: Regular Rate, Rhythm, No Edema, No JVD, No Murmur, Normal Peripheral Pulses Gastrointestinal: Normal Bowel Sounds, No Organomegaly, No Pulsatile Mass, Non Tender, Soft Extremity: Normal Capillary Refill, Normal Inspection, Normal Range of Motion, Non Tender, No Calf Tenderness, No Pedal Edema Neurologic/Psychiatric: Alert, Oriented x3, No Motor/Sensory Deficits, electrical checkout mechanic II- XII Norm as Tested, Other (FLAT AFFECT. SOMEWHAT LETHARGIC) Skin: Normal Color, Warm/Dry Progress/Results/Core Measures Suspected Sepsis SIRS Temperature: Pulse: Respiratory Rate: Laboratory Tests 01/10/18 22:30: White Blood Count 14.5H Blood Pressure / Mean: Laboratory Tests 01/10/18 22:30: Creatinine 1.34H, Platelet Count 302, Total Bilirubin 0.3 Results/Orders Lab Results Laboratory Tests Test 01/10/18 21:47 01/10/18 22:30 01/10/18 22:36 01/10/18 23:55 Range/Units Urine Color YELLOW Urine Clarity CLEAR Urine pH 6 5-9 Urine Specific [place] 1.020 1.016-1.022 Urine Protein NEGATIVE NEGATIVE Urine Glucose (UA) 4+ H NEGATIVE Urine Ketones NEGATIVE NEGATIVE Urine Nitrite NEGATIVE NEGATIVE Urine Bilirubin NEGATIVE NEGATIVE Urine Urobilinogen NORMAL NORMAL MG/DL Urine Leukocyte Esterase NEGATIVE NEGATIVE Urine RBC (Auto) NEGATIVE NEGATIVE Urine RBC NONE /HPF Urine WBC RARE /HPF Urine Squamous Epithelial Cells 0-2 /HPF Urine Crystals NONE /LPF Urine Bacteria NEGATIVE /HPF Urine Casts NONE /LPF Urine Mucus NEGATIVE /LPF Urine Culture Indicated NO White Blood Count 14.5 H 4.3-11.0 10^3/uL Red Blood Count 4.17 L 4.35-5.85 10^6/uL Hemoglobin 13.7 11.5-16.0 G/DL Hematocrit 36 35-52 % Mean Corpuscular Volume 87 80-99 FL Mean Corpuscular Hemoglobin 33 25-34 PG Mean Corpuscular Hemoglobin Concent 38 H 32-36 G/DL Red Cell Distribution Width 11.7 10.0-14.5 % Platelet Count 302 130-400 10^3/uL Mean Platelet Volume 9.5 7.4-10.4 FL Neutrophils (%) (Auto) 58 42-75 % Lymphocytes (%) (Auto) 31 12-44 % Monocytes (%) (Auto) 9 0-12 % Eosinophils (%) (Auto) 2 0-10 % Basophils (%) (Auto) 0 0-10 % Neutrophils # (Auto) 8.4 H 1.8-7.8 X 10^3 Lymphocytes # (Auto) 4.4 H 1.0-4.0 X 10^3 Monocytes # (Auto) 1.3 H 0.0-1.0 X 10^3 Eosinophils # (Auto) 0.3 0.0-0.3 10^3/uL Basophils # (Auto) 0.0 0.0-0.1 10^3/uL Neutrophils % (Manual) 74 % Lymphocytes % (Manual) 23 % Monocytes % (Manual) 1 % Eosinophils % (Manual) 2 % Basophils % (Manual) 0 % Band Neutrophils 0 % Blood Morphology Comment NORMAL Sodium Level 132 L 135-145 MMOL/L Potassium Level 4.0 3.6-5.0 MMOL/L Chloride Level 96 L 98-107 MMOL/L Carbon Dioxide Level 21 21-32 MMOL/L Anion Gap 15 H 5-14 MMOL/L Blood Urea Nitrogen 14 7-18 MG/DL Creatinine 1.34 H 0.60-1.30 MG/DL Estimat Glomerular Filtration Rate 46 BUN/Creatinine Ratio 10 Glucose Level 504 *H 70-105 MG/DL Calcium Level 9.6 8.5-10.1 MG/DL Magnesium Level 2.0 1.8-2.4 MG/DL Total Bilirubin 0.3 0.1-1.0 MG/DL Aspartate Amino Transf (AST/SGOT) 11 5-34 U/L Alanine Aminotransferase (ALT/SGPT) 27 0-55 U/L Alkaline Phosphatase 98 40-136 U/L Total Protein 7.5 6.4-8.2 GM/DL Albumin 4.4 3.2-4.5 GM/DL Amylase Level 37 25-125 U/L Lipase 51 8-78 U/L Glucometer 480 *H 415 *H 70-110 MG/DL My Orders Orders - JESSE MCCABE DO Accucheck Stat ONCE (01/10/18 22:27) Saline Lock/Iv-Start (01/10/18 22:27) Monitor-Rhythm Ecg Trace Only (01/10/18 22:27) Amylase (01/10/18 22:27) Cbc With Automated Diff (01/10/18 22:27) Comprehensive Metabolic Panel (01/10/18 22:27) Lipase (01/10/18 22:27) Magnesium (01/10/18 22:27) Ua Culture If Indicated (01/10/18 22:27) Saline Lock/Iv-Start (01/10/18 22:27) Ns Iv 1000 Ml (Sodium Chloride 0.9%) (01/10/18 22:27) Manual Differential (01/10/18 22:30) Insulin (Regular) Human (Humulin R (Per (01/10/18 23:15) Accucheck Stat ONCE (01/10/18 23:51) Valproic Acid (01/10/18 23:51) Medications Given in ED Current Medications Medications Dose Ordered Sig/Kumar Route Start Time Stop Time Status Last Admin Dose Admin Insulin Human Regular 20 unit ONCE ONCE IV 01/10/18 23:15 01/10/18 23:16 UNV 01/10/18 23:29 20 UNIT Sodium Chloride 1,000 ml @ 0 mls/hr Q0M ONCE IV 01/10/18 22:27 01/10/18 22:28 DC 01/10/18 22:49 999 MLS/HR Vital Signs/I&O 01/10/18 22:22 Temp 98.4 Pulse 97 Resp 20 B/P (MAP) 154/92 (112) Pulse Ox 92 O2 Delivery Room Air Capillary Refill : Point of Care Testing Finger Stick Blood Glucose: 480 Blood Glucose Action Taken: Dr Mccabe notified Progress Note : Progress Note ACCUCHECK 480 ON ARRIVAL--504 BY SERUM BLOOD GLUCOSE DOWN TO 415 AT TIME OF ADMIT. NO DETERIORATION IN PT'S CONDITION DURING ER STAY Departure Communication (Admissions) 2313--SPOKE WITH DR. RUSH, HOSPITALIST INJECTION MOLDING PROCESS TECHNICIAN FOR [facility]. ACCEPTS PT FOR ADMIT. ORDERS NOTED. Impression Primary Impression: Newly diagnosed diabetes Additional Impressions: Renal insufficiency MILD ELECTROLYTE IMBALANCE Disposition: ADMITTED INPATIENT Condition: Stable Admissions Decision to Admit Reason: Admit from ER (General) Decision to Admit/Date: Jan 10, 2018 Time/Decision to Admit Time: 23:15 Departure-Patient Inst. Referrals: ADELA VILLAFUERTE MD (PCP) Primary Care Physician [facility] (Family) Primary Care Physician JESSE MCCABE DO Jan 10, 2018 22:45
[2018-01-10 22:47] LABS: BACTERIA,URINE NEGATIVE /HPF; SQUAMOUS EPITHELIAL CELL,UR 0-2 /HPF; WBC,URINE RARE /HPF
[2018-01-10 23:02] LABS: ALBUMIN 4.4 GM/DL (3.2-4.5); BILIRUBIN,TOTAL 0.3 MG/DL (0.1-1.0); CALCIUM 9.6 MG/DL (8.5-10.1); CREATININE SERUM 1.34 MG/DL (0.60-1.30); TOTAL PROTEIN 7.5 GM/DL (6.4-8.2)
[2018-01-10 23:04] LABS: BAND NEUTROPHILS 0 %; BASOPHILS % (MANUAL) 0 %; EOSINOPHILS % (MANUAL) 2 %; LYMPHOCYTES % (MANUAL) 23 %; MONOCYTES % (MANUAL) 1 %; NEUTROPHILS % (MANUAL) 74 %; RBC MORPH NORMAL
[2018-01-10] MEDS ORDERED: inSUlin (REGULAR) HUMAN 1 UNIT/0.01 ML (CHARGE PER UNIT) IV ONE (23:15)
[2018-01-10] MEDS ORDERED: METF-478 PO (23:25)
[2018-01-10] MEDS ORDERED: HALO10TA PO (23:25)
[2018-01-10] MEDS ORDERED: DIVA500T15 PO (23:25)
[2018-01-10] MEDS ORDERED: TERC45CR4 (23:25)
[2018-01-10] MEDS ORDERED: PALI9TAB4 PO (23:25)
[2018-01-10] MEDS ORDERED: DIVA250T12 PO (23:25)
[2018-01-10] MEDS ORDERED: TRAZ150T72 PO (23:25)
[2018-01-10] MEDS ORDERED: ATOR40TA70 PO (23:25)
[2018-01-10] MEDS ORDERED: TR025C15 (23:25)
[2018-01-10] MEDS ORDERED: HALO5TAB PO (23:25)
[2018-01-10] MEDS ORDERED: RANI150C4 PO (23:25)
[2018-01-10] MEDS ORDERED: HYDR-700 PO (23:25)
[2018-01-10] MEDS ORDERED: inSUlin (REGULAR) HUMAN 1 UNIT/0.01 ML (CHARGE PER UNIT) ONE (23:26)
[2018-01-11] VITALS: BP 135/73
[2018-01-11] MEDS ORDERED: IBUPROFEN 600 MG (MOTRIN) TAB PO PRN (01:00)
[2018-01-11] MEDS ORDERED: IBUPROFEN 600 MG (MOTRIN) TAB PO ONE (01:25)
[2018-01-11] MEDS: IBUPROFEN 600 MG (MOTRIN) TAB PO SCH ×3 (01:28→12:42)
[2018-01-11] MEDS ORDERED: inSUlin DETERMIR 1 UNIT/0.01 ML (LEVEMIR) CHARGE PER UNIT SQ ONE ×2 (02:15→02:21)
[2018-01-11] MEDS ORDERED: NS IV 1000 ML 1,000 ML ONE (02:21)
[2018-01-11] MEDS: NS IV 1000 ML 1,000 ML IV SCH ×2 (02:26→08:44)
[2018-01-11] MEDS: inSUlin ASPART (NovoLOG) 1 UNIT/0.01 ML (CHARGE PER UNIT) SC SCH ×3 (04:25→12:42)
[2018-01-11 08:00] VITALS: BP 118/65
[2018-01-11] MEDS ORDERED: metFORMIN XR 500 MG (GLUCOPHAGE XR) TAB PO SCH (09:00)
[2018-01-11] MEDS ORDERED: DIVALPROEX EXT RELEASE 250 MG (DEPAKOTE ER) TAB PO SCH (09:00)
[2018-01-11] MEDS ORDERED: PALIPERIDONE 9 MG (INVEGA) TABLET NON-FORMULARY PO SCH (09:00)
[2018-01-11] MEDS ORDERED: INSU100I29 SQ (10:15)
[2018-01-11] MEDS ORDERED: TR025C15 TOP (10:15)
[2018-01-11] MEDS ORDERED: INSU100I14 SQ (10:15)
[2018-01-11] MEDS ORDERED: RT-ALBUTEROL SULF 2.5 MG/3 ML PRE-MIX VIAL IH PRN (10:15)
[2018-01-11] MEDS ORDERED: CEPH250C PO (10:15)
[2018-01-11] MEDS ORDERED: NEED-474 MC (10:15)
[2018-01-11] MEDS ORDERED: NON-FORMULARY MEDICATION 1 EA EA (Acyclovir 400 MG) PO PRN (10:15)
[2018-01-11] MEDS ORDERED: NON-FORMULARY MEDICATION 1 EA EA (Docusate Sodium 100 MG) PO PRN (10:15)
[2018-01-11] MEDS ORDERED: CEPHALEXIN 250 MG (KEFLEX) CAP PO SCH (10:15)
[2018-01-11] MEDS ORDERED: TERC45CR4 TOP (10:15)
--- NOTE | 2018-01-11 10:17 | Short Stay Summary-Hospitalist ---
History of Present Illness HPI/Chief Complaint CC: Severe hyperglycemia without acidosis HPI: This is a 32-year-old white female clinic patient of [facility] who had laboratory done I Dr. Albright due to severe yeast infection under abdominal folds and was found to have severe hyperglycemia the 450 range with hemoglobin A1c at 9.3 for new onset diabetes. She was sent over to [facility] yesterday seen by a provider and placed on metformin and given a glucometer machine with strips. She was told if it remains too high to read for her to go to the emergency room and that is what happened so she presented to the ER late last night found to have sugar in the 500 range without DKA acidosis. 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 At this current time she is drowsy since she did get her psychiatric medication that includes Depakote about 5 hours late last night but otherwise she is doing well and getting more awake as the hours progressed. I did secure her an appointment with the same provider that saw her yesterday tomorrow with close follow-up for insulin management. Source: patient Exam Limitations: no limitations Date Seen 01/11/18 Time Seen by Provider: 10:00 Attending Physician Sue Higginbotham Bethany N MD Referring Physician Date of Admission Jan 10, 2018 at 23:15 Home Medications & Allergies Home Medications Reviewed patient Home Medication Reconciliation performed by pharmacy medication reconciliations medical technician assistant and/or nursing. Patients Allergies have been reviewed. Allergies Allergies Coded Allergies No Known Drug Allergies (Unverified08/15/12) Past Wjhswea-Efaito-Hmrsbk Hx Past Med/Social Hx: Reviewed Nursing Past Med/Soc Hx, Reviewed and Corrections made Patient Social History Marrital Status: single Employed/Student: unemployed Alcohol Use: Past History Number of Drinks Today: 0 Recreational Drug Use: Yes (THC) Drug of Choice: THC Smoking Status: Current Everyday Smoker Type Used: Cigarettes Physical Abuse Screen: No Sexual Abuse: No Recent Foreign Travel: No Contact w/other who traveled: No Recent Hopitalizations: No Recent Infectious Disease Expo: No Seasonal Allergies Seasonal Allergies: No Past Medical History Surgeries: Bladder Surgery, Hysterectomy Cardiac: High Cholesterol : No Reproductive: Yes (CPP,SUDHEER III) Female Reproductive Disorders: Endometriosis Hysterectomy Genitourinary: UTI (peds) Gastrointestinal: Gastroesophageal Reflux Musculoskeletal: Arthritis, Chronic Back Pain Endocrine: Diabetes, Non-Insulin dep (new onset 01/10/18) Psychosocial: Sleep Difficulties, Anxiety, PTSD, Personality Disorder, Schizophrenia, Depression History of Blood Disorders: No Adverse Reaction to Blood Carpenter: No Family History Alcoholism 19 FATHER Thyroid disease 19 MOTHER No Pertinent Family Hx Review of Systems Constitutional: see HPI, malaise EENTM: no symptoms reported Respiratory: no symptoms reported Cardiovascular: no symptoms reported Gastrointestinal: no symptoms reported Genitourinary: no symptoms reported Musculoskeletal: no symptoms reported Skin: no symptoms reported Psychiatric/Neurological: No Symptoms Reported All Other Systems Reviewed Negative Unless Noted: Yes Physical Exam Physical Exam Vital Signs Vital Signs - First Documented 01/10/18 22:22 Temp 98.4 Pulse 97 Resp 20 B/P (MAP) 154/92 (112) Pulse Ox 92 O2 Delivery Room Air Capillary Refill : Less Than 3 Seconds Height, Weight, BMI Height: 5'2.00" Weight: 216lbs. 5.0oz. 97.448182iq; 40.5 BMI Method:Stated General Appearance: No Apparent Distress, WD/WN, Chronically ill, Obese, Other (drowsy from meds, mother at bedside) Eyes: Bilateral Eye Normal Inspection, Bilateral Eye PERRL HEENT: PERRL/EOMI, TMs Normal, Normal ENT Inspection, Pharynx Normal Neck: Full Range of Motion, Normal Inspection, Non Tender, Supple, Carotid Bruit Respiratory: Chest Non Tender, Lungs Clear, Normal Breath Sounds, No Accessory Muscle Use, No Respiratory Distress Cardiovascular: Regular Rate, Rhythm, No Edema, No Gallop, No JVD, No Murmur, Normal Peripheral Pulses Gastrointestinal: Normal Bowel Sounds, No Organomegaly, No Pulsatile Mass, Non Tender, Soft Back: Normal Inspection, No CVA Tenderness, No Vertebral Tenderness Extremity: Normal Capillary Refill, Normal Inspection, Normal Range of Motion, Non Tender, No Calf Tenderness, No Pedal Edema Neurologic/Psychiatric: Alert, Oriented x3, No Motor/Sensory Deficits, Normal Mood/Affect Skin: Normal Color, Warm/Dry Lymphatic: No Adenopathy Results Results/Procedures Labs Laboratory Tests 01/10/18 22:30 Patient resulted labs reviewed. Short Stay Diagnosis Discharge Diagnosis-Short Stay Admission Diagnosis Severe hyperglycemia in a new onset diabetic requiring insulin initiation before discharge Severe yeast infection in abdominal folds requiring topical medication Acute UTI placed on Keflex by Dr. Albright Severe long-term mental illness Morbid obesity with BMI of 39 Acute renal insufficiency Leukocytosis Final Discharge Diagnosis Severe hyperglycemia in a new onset diabetic requiring insulin initiation before discharge Severe yeast infection in abdominal folds requiring topical medication Acute UTI placed on Keflex by Dr. Albright Severe long-term mental illness Morbid obesity with BMI of 39 Acute renal insufficiency Leukocytosis Conclusion Plan Discharge home after lunch today Diabetic education Start insulin of Levemir 40 units at night in addition to NovoLog 10 units before meals Restart Keflex for UTI although UA normal here she has been on abx only 2 days Maintain topical medication for yeast infection Home psychiatric meds Diagnosis/Problems Diagnosis/Problems (1) Hyperglycemia Status: Acute Assessment & Plan: Start insulin (2) Newly diagnosed diabetes Status: Acute Assessment & Plan: Start insulin HGA1C 9.[address] Albright (3) Leukocytosis Status: Acute Assessment & Plan: Recheck labs Qualifiers: Qualified Codes: D72.823 - Leukemoid reaction (4) UTI (urinary tract infection) Status: Acute Assessment & Plan: restart Keflex Qualifiers: Qualified Codes: N30.00 - Acute cystitis without hematuria (5) Yeast infection of the skin Status: Acute Assessment & Plan: Start topical meds (6) Obesity (BMI 30-39.9) Status: Chronic (7) Renal insufficiency Status: Acute Assessment & Plan: Recheck labs (8) Schizophrenia Status: Chronic Assessment & Plan: Home meds Qualifiers: Qualified Codes: F20.9 - Schizophrenia, unspecified Clinical Quality Measures DVT/VTE Risk/Contraindication: Risk Factor Score Per Nursin RFS Level Per Nursing on Admit: 2=Moderate SUE HIGGINBOTHAM DO Jan 11, 2018 10:17
[2018-01-11] MEDS ORDERED: DOCUSATE SODIUM 100 MG (COLACE) CAP PO PRN (10:30)
[2018-01-11] MEDS ORDERED: ACYCLOVIR 400 MG TABLET (ZOVIRAX) PO PRN (10:30)
[2018-01-11 11:18] LABS: HEMOGLOBIN 12.8 G/DL (11.5-16.0); MEAN PLATELET VOLUME 9.2 FL (7.4-10.4); RED BLOOD COUNT 3.87 10^6/uL (4.35-5.85); RED CELL DISTRIBUTION WIDTH 11.6 % (10.0-14.5); WHITE BLOOD COUNT 9.6 10^3/uL (4.3-11.0)
[2018-01-11 11:47] LABS: ALANINE AMINOTRANSFERASE 21 U/L (0-55); ALBUMIN 3.8 GM/DL (3.2-4.5); ALKALINE PHOSPHATASE 70 U/L (40-136); BILIRUBIN,TOTAL 0.2 MG/DL (0.1-1.0); BUN/CREATININE RATIO 15; CALCIUM 8.5 MG/DL (8.5-10.1); CARBON DIOXIDE 20 MMOL/L (21-32); CHLORIDE 106 MMOL/L (98-107); CREATININE SERUM 0.91 MG/DL (0.60-1.30); GFR ESTIMATED > 60; GLUCOSE 252 MG/DL (70-105); POTASSIUM 3.8 MMOL/L (3.6-5.0); SODIUM 136 MMOL/L (135-145); TOTAL PROTEIN 6.2 GM/DL (6.4-8.2)
[2018-01-11 12:00] VITALS: BP 136/80
[2018-01-11] MEDS ORDERED: NYSTATIN CREAM (MYCOSTATIN) 30 GM TUBE TP SCH (13:00)
[2018-01-11] MEDS ORDERED: FAMOTIDINE 20 MG (PEPCID) TABLET PO SCH (21:00)
[2018-01-11] MEDS ORDERED: HALOPERIDOL 5 MG (HALDOL) TAB PO SCH (21:00)
[2018-01-11] MEDS ORDERED: NON-FORMULARY MEDICATION 1 EA EA (Ranitidine HCl 150 MG) PO SCH (21:00)
[2018-01-11] MEDS ORDERED: traZODone 150 MG (DESYREL) TABLET PO SCH (21:00)
[2018-01-11] MEDS ORDERED: HALOPERIDOL 10 MG PO SCH (21:00)
[2018-01-11] MEDS ORDERED: TRIAMCINOLONE 0.025% CR (KENALOG) 15 GM TUBE TOP SCH (21:00)
[2018-01-11] MEDS ORDERED: ATORVASTATIN 40 MG (LIPITOR) TABLET PO SCH (21:00)
[2018-01-11] MEDS ORDERED: LEVOTHYROXINE 75 MCG (LEVOTHROID) TABLET PO SCH (21:00)
[2018-01-11] MEDS ORDERED: DIVALPROEX EXT RELEASE 500 MG (DEPAKOTE ER) TAB PO SCH (21:00)
[2018-01-12] MEDS ORDERED: hydrOXYzine (VISTARIL) 25 MG CAP PO SCH (09:00)
[2018-01-12] MEDS ORDERED: HALOPERIDOL 5 MG (HALDOL) TAB PO SCH (09:00)
[2018-01-12] MEDS ORDERED: NON-FORMULARY MEDICATION 1 EA EA (Haloperidol 5 MG) PO SCH (09:00)
[2018-01-12] MEDS ORDERED: NON-FORMULARY MEDICATION 1 EA EA (Hydroxyzine HCl 25 MG) PO SCH (09:00)
--- OUTSIDE RECORDS SUMMARY | 2018-02-02 17:38 | XMS REPORT ---
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 Name Role Phone STAR FERREIRA Unavailable Unavailable PROBLEMS Type Condition ICD9-CM Code YKG01-[place] Code Onset Dates Condition Status SNOMED Code Problem Schizoaffective disorder, bipolar type F25.0 Active 76972165 Problem Vaginal burning N94.9 Active 718000544 Problem Other chronic pain G89.29 Active 18831026 Problem Type 2 diabetes mellitus without complications E11.9 Active 946323738 Problem MCC 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 Active 190824758 Problem Hand eczema L30.9 Active 243049518 Problem Bulging of cervical intervertebral disc M50.20 Active 764346607 Problem Type 2 diabetes mellitus without complication, without long-term current use of insulin E11.9 Active 388976321 Problem Gastroesophageal reflux disease, esophagitis presence not specified K21.9 Active 164007599 Problem Cervical dysplasia N87.9 Active 14782666 Problem Hypothyroidism E03.9 Active 18613259 Problem Hypertriglyceridemia E78.1 Active 664982252 Problem Prediabetes R73.09 Active 1913956 Problem Bulge of cervical disc without myelopathy M50.20 Active 329564424 Problem Mild intermittent asthma, uncomplicated J45.20 Active 377356802 Problem Lumbar facet arthropathy M46.96 Active 709741160 Problem Generalized anxiety disorder F41.1 Active 77816421 ALLERGIES Substance Reaction Event Type Date Status Seroquel leg pain Drug Allergy October, Active ENCOUNTERS Encounter Location Date Diagnosis [facility] [address] [facility] [id number] [address] Feb, [facility] [address] [id number] [address] 4585 Dec, [facility] [address] [id number] [address] Dec, [place] [id number] [place] [address] 23417- 1023 Dec, Type 2 diabetes mellitus without complications E11.9 ; MCC 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 and BMI 40.0-44.9, adult Z68.41 [place] [id number] [place] [address] 47282- 4086 Dec, Type 2 diabetes mellitus without complication, without long- term current use of insulin E11.9 [place] [id number] [place] [address] 92402- 6622 Dec, [place] [id number] [place] [address] 50102- 2597 Dec, Type 2 diabetes mellitus without complication, without long- term current use of insulin E11.9 [place] [id number] [place] [address] 91161- 6677 Dec, Type 2 diabetes mellitus without complication, without long- term current use of insulin E11.9 ; Gastroesophageal reflux disease, esophagitis presence not specified K21.9 and BMI 40.0-44.9, adult Z68.41 [place] [id number] [place] [address] 20405- 5788 Dec, [facility] [id number] [place] [address] [id number] October, Dental examination Z01.20 [place] [id number] [place] [address] 55413- 9232 Sep, [place] [id number] [place] [address] 33683- 2282 Sep, Hypertriglyceridemia E78.1 [place] [id number] [place] [address] 04331- 6548 Sep, Hypothyroidism E03.9 ; Prediabetes R73.09 ; Mild intermittent asthma, uncomplicated J45.20 ; Bulge of cervical disc without myelopathy M50.20 ; Other chronic pain G89.29 ; Hand eczema L30.9 ; Right anterior knee pain M25.561 ; Hypertriglyceridemia E78.1 and BMI 40.0-44.9, adult Z68.41 [place] [address] [address]353- 6949 Sep, [place] [address] 03892- 0531 Sep, [place] [address] 02215- 2054 Jul, [place] [address] 49685- 6539 May, Acute non-recurrent maxillary sinusitis J01.[address] [facility] [address] 47756 -8852 Mar, Other viral agents as the cause of diseases classified elsewhere B97.89 and Acute upper respiratory infection, unspecified J06.[address] 8[address]71- 9233 Mar, [place] [address] 63316- 4754 Mar, Neck pain M54.[address] 15914- 2400 Feb, Bulge of cervical disc without myelopathy M50.[address] 48513- 3075 Feb, Neck pain M54.2 [place] [address] 38092- 4619 Feb, [address] 13685- 6451 Feb, Bulge of cervical disc without myelopathy M50.20 ; Hypertriglyceridemia E78.1 ; Hand eczema L30.9 and Hypothyroidism E03.[address] 00834- 6809 Jan, [facility] [id number] [place] [address] [id number] October, 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 dental examination Z01.20 [place] [address] 76153- 7062 Sep, Generalized abdominal pain R10.[address] 91206- 0786 Sep, Schizoaffective disorder, bipolar type F25.0 and Generalized anxiety disorder F41.1 [facility] [address] [place] [address] 50427 -8834 Sep, [facility] [address] [place] [address] 62606 -5936 Sep, Vaginal burning N94.9 and Vaginal mitzi B37.3 [facility] [address] [place] [address] 81832 -4198 Sep, Gastroenteritis K52.9 [facility] [address] [place] [address] 23459 -9645 Sep, Thrush B37.0 [facility] [address] [place] [address] 43996 -3762 Sep, Pharyngitis due to other organism J02.[address] 46638- 4898 Sep, [facility] [address] [place] [address] 62250 -2089 Aug, Cervicalgia M54.[address] 21435- 4871 09 Aug, 2016 Hypothyroidism E03.9 ; Dry skin L85.3 ; Plantar fasciitis, bilateral M72.2 and Other chronic pain G89.29 [facility] [address] [place] [address] 14798 -7134 Aug, Abrasion T14.8 [facility] [id number] [place] [address] [id number] Aug, Dental examination Z01.20 [facility] [address] 23342 -6539 Aug, Excessive cerumen in right ear canal H61.21 ; Impacted cerumen of both ears 380.4 and Bronchitis J40 [facility] [address] 71981 -8915 Jul, Bilateral impacted cerumen H61.23 and Acute non-recurrent frontal sinusitis J01.10 [place] [address] 60934- 2637 May, Schizoaffective disorder, bipolar type F25.0 and Generalized anxiety disorder F41.[address] 26079- 9195 May, [place] [address] 25877- 6412 May, Cervicalgia M54.2 and Hypertriglyceridemia E78.1 [place] [address] 08888- 5792 May, [place] [address] 97071- 3105 May, STD exposure Z20.2 and Well woman exam Z01.419 [place] [address] 41843- 7199 May, [place] [address] 70842- 2225 Mar, [place] [address] 46212- 7724 Dec, Pain in left knee M25.562 [place] [address] 79313- 4114 Dec, [facility] [address]005[address] [address]- 4834 Nov, [facility] [address] [address]- 9804 October, [facility] [address] [address]- 8999 Aug, [facility] [id number] [place] [address] 75896- 3808 Jul, [facility] [address] [address]- 4189 Jul, [facility] [id number] [place] [address] 75852- 3761 Jul, Plantar fasciitis M72.2 and 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 [facility] [id number] [place] [address] 74093- 0791 Jul, [facility] [address] [address]- 0750 Jun, Plantar fasciitis M72.2 and Physical exam Z00.00 [facility] [address] [address]- 8848 Jun, [facility] [address] [address]- 3876 Jun, [facility] [address] [address]- 1437 Jun, [facility] [address] [address]- 7364 May, [facility] [address] [address]- 8112 May, Hypertriglyceridemia E78.1 [facility] [address] [address]- 9830 May, Hypothyroidism E03.9 ; Prediabetes R73.09 and Hypertriglyceridemia E78.1 [facility] [address] [id number] [address]- 9247 May, [facility] [id number] [place] [address] 53702- 9286 May, [facility] [id number] [place] [address] 28277- 9151 May, Hypothyroidism E03.9 ; Prediabetes R73.09 and Hypertriglyceridemia E78.1 [facility] [id number] [place] [address] 56837- 5586 Apr, Schizoaffective disorder, bipolar type F25.0 [facility] [id number] [place] [address] 95185- 6726 Mar, [facility] [id number] [place] [address] 59548- 8832 Mar, [facility] [id number] [place] [address] 75403- 4710 Mar, [facility] [id number] [place] [address] 82516- 5437 Feb, [facility] [id number] [place] [address] 08698- 3298 Feb, [facility] [id number] [place] [address] 68721- 0749 Feb, [facility] [id number] [place] [address] 53657- 8552 Feb, Screen for STD (sexually transmitted disease) V74.5 ; Counseling on other sexually transmitted diseases V65.45 ; Back pain 724.5 ; Contact with or exposure to venereal diseases V01.6 and Pelvic pain in female 625.9 [facility] [id number] [place] [address] 12538- 5294 15 Feb, 2015 Schizoaffective disorder, unspecified 295.70 and Anxiety state, unspecified 300.00 [facility] [address] [facility] [id number] [address]- 9311 14 Feb, 2015 [facility] [id number] [place] [address] 41876- 5875 10 Feb, 2015 [facility] [id number] [place] [address] 39704- 254 03 Feb, 2015 Impacted cerumen of both ears 380.4 and Mild intermittent asthma 493.90 [facility] [address] [facility] [id number] [place] [address] 01450- 1616 Feb, [facility] [id number] [place] [address] 68298- 8985 Jan, [facility] [id number] [place] [address] 50557- 4445 Jan, [facility] [id number] [place] [address] 64461- 3222 Jan, [facility] [address] [address]- 1552 Jan, [facility] [id number] [place] [address] 18054- 9320 Jan, [facility] [address] [address]- 4821 Jan, [facility] [address] [address]- 6647 Jan, [facility] [address] [address]- 6760 Jan, [facility] [id number] [place] [address] 53010- 8784 Jan, [facility] [address] [address]- 4484 Jan, [facility] [address] [address]- 7654 Jan, [facility] [address] [address]- 8140 Dec, Schizoaffective disorder, unspecified 295.70 [facility] [address] [address]- 6029 Dec, 2014 [facility] [address] [address]- 4293 Dec, 2014 [facility] [id number] [place] [address] 86726- 5217 Dec, [facility] [id number] [place] [address] 44810- 2910 Dec, [facility] [id number] [place] [address] 36877- 6616 Dec, [facility] [address] [address] Dec, Dental examination V72.2 [facility] [id number] [place] [address] 63993- 2205 Dec, Schizoaffective disorder, unspecified 295.70 ; Persistent disorder of initiating 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.42 and Anxiety state, unspecified 300.00 [facility] [address] [address]- 3873 Dec, [facility] [address] [address]- 7587 Nov, High risk medication use V58.69 [facility] [address] [address]- 7762 Nov, [facility] [address] [address]- 0943 Nov, [facility] [address] [address]- 1746 Nov, High risk medication use V58.69 [facility] [address] [address]- 5223 Nov, [facility] [address] [address]- 4501 Nov, [facility] [id number] [place] [address] 22801- 9644 Nov, [facility] [id number] [place] [address] 54802- 6511 Nov, Hypothyroidism 244.9 ; Hypertriglyceridemia 272.1 and Prediabetes 790.29 [facility] [id number] [place] [address] 43345- 2398 Nov, [facility] [id number] [place] [address] 35764- 5903 Nov, [facility] [id number] [place] [address] 27629- 6458 Nov, Bulge of cervical disc without myelopathy 722.0 ; Lumbar facet arthropathy 721.3 ; Family history of stroke V17.1 ; Hyperthyroidism 242.90 and 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 long-term current use of medication V58.69 [facility] [address] [address]- 5231 Nov, [facility] [id number] [place] [address] 00034- 2671 October, [facility] [address] [address]- 9344 October, [facility] [id number] [place] [address] 36932- 1249 October, [facility] [address] [address]- 3245 October, [facility] [id number] [place] [address] 35627- 2681 October, [facility] [address] [address]- 8286 October, [facility] [address] [id number]- 5298 October, Schizoaffective disorder, unspecified 295.70 and Persistent disorder of initiating 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.42 [facility] [address] [id number] 1389 October, Schizoaffective disorder, unspecified 295.70 [facility] [id number] [place] [address] 556699- 6623 October, [facility] [id number] [place] [address] 799008- 4287 October, [facility] [id number] [place] [address] 596955- 1275 October, [facility] [id number] [place] [address] 16238- 4172 Sep, Lumbago of lumbar region with sciatica 724.2 and Neck pain 723.1 [facility] [address] 4477565100[place] [address]- 6548 Sep, [facility] [id number] [address]- 9408 Sep, [facility] [id number] [address]- 9566 Aug, [facility] [address] [address]- 4506 Aug, [facility] [id number]- 5701 Aug, [facility] [address]- 9221 Aug, [facility] [id number] [place] [address] 460929- 5299 Aug, [facility] [address] 8181 Aug, [facility] [address] [place] [address]- 3903 20 Aug, 2014 [facility] [place] [facility] [address] [id number] [place] [address]- 7536 20 Aug, 2014 [facility] [place] [facility] [address] [id number] [place] [address]- 3949 19 Aug, 2014 [facility] [place] [facility] [address] [id number] [place] [address]- 1829 19 Aug, 2014 [facility] [place] [facility] [address] [id number] [place] [address]- 4874 18 Aug, 2014 [facility] [place] [facility] [address] [id number] [place] [address]- 3867 18 Aug, 2014 [facility] [place] [facility] [address] [id number] [place] [address]- 7158 18 Aug, 2014 [facility] [place] [facility] [address] [id number] [place] [address]- 3912 18 Aug, 2014 [facility] [place] [facility] [address] [id number] [place] [address]- 0144 16 Aug, 2014 [facility] [place] [facility] [address] [id number] [place] [address]- 9674 12 Aug, 2014 [facility] [place] [facility] [address] [id number] [place] [address]- 9472 Aug, 2014 [facility] [place] [facility] [address] [id number] [place] [address]- 9656 12 Aug, 2014 [facility] [place] [facility] [address] [id number] [place] [address]- 1979 12 Aug, 2014 [facility] [place] [facility] [address] [id number] [place] [address]- 8683 09 Aug, 2014 [facility] [place] [facility] [address] [id number] [place] [address]- 9484 09 Aug, 2014 [facility] [place] [facility] [address] [id number] [place] [address]- 6428 06 Aug, 2014 [facility] [place] [facility] [address] [id number] [place] [address]- 8673 05 Aug, 2014 [facility] [place] [facility] [address] [id number] [place] [address]- 3799 Aug, 2014 [facility] [place] [facility] [address] [id number] [place] [address]- 3912 Aug, 2014 [facility] [place] [facility] [address] [id number] [place] [address]- 2474 Aug, 2014 [facility] [place] [facility] [address] [id number] [place] [address]- 6070 Aug, [facility] [place] [facility] [address] [id number] [place] [address]- 6334 Jul, 2014 [facility] [place] [facility] [address] [facility] [id number] [place] [address]- 0348 Jul, 2014 [facility] [place] [facility] [address] [id number] [place] [address]- 5881 26 Jul, 2014 [facility] [place] [facility] [address] [id number] [place] [address]- 9182 20 Jul, 2014 [facility] [place] [facility] [address] [facility] [id number] [place] [address]- 3497 20 Jul, 2014 [facility] [place] [facility] [address] [id number] [place] [address]- 1191 17 Jul, 2014 [facility] [place] [facility] [address] [id number] [place] [address]- 8846 17 Jul, 2014 [facility] [place] [facility] [address] [id number] [place] [address]- 1962 16 Jul, 2014 [facility] [place] [facility] [address] [id number] [place] [address]- 4905 16 Jul, 2014 [facility] [place] [facility] [address] [facility] [id number] [place] [address]- 4102 13 Jul, 2014 [facility] [place] [facility] [address] [id number] [place] [address]- 5070 Jun, [facility] [address] [id number] [place] [address]- 8565 Jun, [facility] [address] [id number] [place] [address]- 2882 Jun, [facility] [address] [id number] [place] [address]- 8502 Jun, [facility] [address] [id number] [place] [address]- 3154 Jun, [facility] [address] [id number] [place] [address]- 7581 Jun, [facility] [address] [id number] [place] [address]- 6529 Jun, [facility] [address] [id number] [place] [address]- 8479 May, [facility] [address] [id number] [place] [address]- 9889 May, [facility] [address] [id number] [place] [address] May, [facility] [address] [id number] [place] [address] May, [facility] [address] [id number] [place] [address] May, [facility] [address] [id number] [place] [address] May, [facility] [place] [facility] [address] [id number] [place] [address] May, [facility] [place] [facility] [address] [id number] [place] [address] May, [facility] [address] [id number] [place] [address] May, [facility] [place] [facility] [address] [id number] [place] [address] May, [facility] [place] [facility] [address] [id number] [place] [address] Apr, [facility] [place] [facility] [address] [id number] [place] [address] Apr, [facility] [place] [facility] [address] [id number] [place] [address] Apr, [facility] [place] [facility] [address] [id number] [place] [address] Apr, [facility] [place] [facility] [address] [id number] [place] [address] Apr, [facility] [place] [facility] [address] [id number] [place] [address] Apr, [facility] [place] [facility] [address] [id number] [place] [address] Apr, [facility] [place] [facility] [address] [id number] [place] [address] Apr, [facility] [place] [facility] [address] [id number] [address] Apr, [facility] [place] [facility] [address] [facility] [id number] [address] Mar, [facility] [place] [facility] [address] [id number] [place] [address] Mar, [facility] [place] [facility] [address] [id number] [place] [address] Mar, [facility] [place] [facility] [address] [id number] [place] [address] Mar, [facility] [place] [facility] [address] [id number] [address] Mar, [facility] [place] [facility] [address] [id number] [place] [address] Mar, [facility] [place] [facility] [address] [id number] [place] [address] Mar, [facility] [place] [facility] [address] [id number] [place] [address] Mar, [facility] [place] [facility] [address] [id number] [place] [address] Mar, [facility] [place] [facility] [address] [id number] [place] [address] Mar, [facility] [place] [facility] [address] [id number] [place] [address] Feb, [facility] [place] [facility] [address] [address] [id number] [place] [address] Feb, [facility] [place] [facility] [address] [id number] [place] [address] Feb, [facility] [place] [facility] [address] [id number] [place] [address] Feb, [facility] [place] [facility] [address] [id number] [place] [address] Feb, [facility] [place] [facility] [address] [id number] [place] [address] Jan, [facility] [place] [facility] [address] [id number] [place] [address] Jan, [facility] [place] [facility] [address] [id number] [place] [address] Jan, [facility] [place] [facility] [address] [id number] [place] [address] Jan, [facility] [place] [facility] [address] [id number] [place] [address] Jan, [facility] [place] [facility] [address] [id number] [place] [address] Jan, [facility] [place] [facility] [address] [id number] [place] [address] Jan, [facility] [place] [facility] [address] [id number] [place] [address] Jan, [facility] [place] [facility] [address] [id number] [place] [address] Jan, [facility] [place] [facility] [address] [id number] [place] [address] Dec, [facility] [place] [facility] [address] [id number] [place] [address] Dec, [facility] [place] [facility] [address] [id number] [place] [address] Dec, [facility] [place] [facility] [address] [id number] [place] [address] Dec, [facility] [place] [facility] [address] [id number] [place] [address] Dec, [facility] [place] [facility] [address] [id number] [place] [address] Dec, [facility] [place] [facility] [address] [id number] [place] [address] Dec, [facility] [place] [facility] [address] [id number] [place] [address] Dec, [facility] [place] [facility] [address] [id number] [place] [address] Nov, [facility] [place] [facility] [address] [id number] [place] [address] Nov, [facility] [place] [facility] [address] [id number] [place] [address] Nov, [facility] [place] [facility] [address] [id number] [place] [address] Nov, [facility] [place] [facility] [address] [id number] [place] [address] Nov, [facility] [place] [facility] [address] [id number] [place] [address] Nov, [facility] [place] [facility] [address] [id number] [place] [address] Nov, [facility] [place] [facility] [address] [id number] [place] [address] Nov, [facility] [place] [facility] [address] [id number] [place] [address] Nov, [facility] [place] [facility] [address] [id number] [place] [address] Nov, [facility] [place] [facility] [address] [id number] [place] [address] Nov, [facility] [place] [facility] [address] [id number] [place] [address] Nov, [facility] [place] [facility] [address] [id number] [place] [address] October, [facility] [place] [facility] [address] [id number] [place] [address] October, [facility] [place] [facility] [address] [id number] [place] [address] October, [facility] [place] [facility] [address] [id number] [place] [address] October, [facility] [place] [facility] [address] [id number] [address] October, [facility] [place] [facility] [address] [id number] [place] [address] Sep, [facility] [place] [facility] [address] [id number] [place] [address] Sep, [facility] [place] [facility] [address] [id number] [place] [address] Sep, [facility] [place] [facility] [address] [id number] [place] [address] Sep, [facility] [place] [facility] [address] [id number] [place] [address] Sep, [facility] [place] [facility] [address] [id number] [place] [address] Sep, [facility] [place] [facility] [address] [id number] [place] [address] Sep, [facility] [place] [facility] [address] [id number] [place] [address] Sep, [facility] [place] [facility] [address] [id number] [place] [address] Sep, [facility] [place] [facility] [address] [id number] [place] [address] Sep, [facility] [place] [facility] [address] [id number] [place] [address] Sep, [facility] [place] [facility] [address] [id number] [place] [address] Sep, [facility] [place] [facility] [address] [id number] [place] [address] Sep, [facility] [place] [facility] [address] [id number] [place] [address] Sep, [facility] [place] [facility] [address] [id number] [place] [address]79 Sep, [facility] [place] [facility] [address] [id number] [place] [address] Sep, [facility] [place] [facility] [address] [id number] [place] [address] Sep, [facility] [place] [facility] [address] [id number] [place] [address] Sep, [facility] [place] [facility] [address] [id number] [place] [address] 69[address] Sep, [facility] [place] [facility] [address] [id number] [place] [address] Aug, [facility] [place] [facility] [address] [id number] [place] [address] 114[address] Aug, [facility] [place] [facility] [address] [id number] [place] [address] Aug, [facility] [place] [facility] [address] [id number] [place] [address] Aug, [facility] [place] [facility] [address] [id number] [place] [address] Jun, [facility] [place] [facility] [address] [id number] [place] [address] Jun, [facility] [place] [facility] [address] [id number] [place] [address] Mar, [facility] [place] [facility] [address] [id number] [place] [address]83 Mar, [facility] [place] [facility] [address] [id number] [place] [address] 15[address] Nov, [facility] [place] [facility] [address] [id number] [place] [address]- [address] Sep, [facility] [place] [facility] [address] [id number] [place] [address] Jun, [facility] [place] [facility] [address] [id number] [place] [address] Jun, [facility] [place] [facility] [address] [id number] [place] [address]- 0480 Apr, [facility] [place] [facility] [address] [id number] [place] [address]- [address] Apr, [facility] [place] [facility] [address] [id number] [place] [address]- [address] Apr, [facility] [place] [facility] [address] [id number] [place] [address] Mar, [facility] [address] [facility] [id number] [place] [address] Feb, IMMUNIZATIONS No Known Immunizations SOCIAL HISTORY Never Assessed REASON FOR VISIT Prophy PLAN OF CARE Activity Details Follow Up wes Reason:restore VITAL SIGNS Height 62 in 2017-11-01 Blood pressure systolic 117 mmHg 2017-11-01 Blood pressure diastolic 79 mmHg 2017-11-01 MEDICATIONS Medication Instructions Dosage Frequency Start Date End Date Duration Status Invega 6 MG Orally Once a day 1 tablet in the morning 24h Active Synthroid 75 MCG Orally Once a day 1 tablet 24h 30 Not-Taking Proventil HFA 108 (90 Base) MCG/ACT Inhalation every 4-6 hours as needed 2 puffs as needed Sep, Active Depakote ER 250 MG Active Atorvastatin Calcium 40 mg Orally Once a day 1 tablet 24h Sep, 30 day(s) Active Betamethasone Dipropionate 0.05 % Externally Once a day for 14 days, stop for 14 days and repeat cycle 1 application to affected area Feb,Nov 14 days Active Ibuprofen 600 MG Orally Three times a day 1 tablet with food or milk as needed 8h Mar, 90 days Active Debrox 6.5 % 5-10 drops in left ear twice daily for up to 4 days Feb Not-Taking Haloperidol 5 MG Orally Twice a day 1 tablet 12h Active Fluticasone Propionate 50 MCG/ACT Nasally Once a day 1 spray in each nostril 24h Aug, 30 day(s) Not-Taking RESULTS No Results PROCEDURES Procedure Date Ordered Result Body Site PERIODIC ORAL EXAMINATION November 01, 2017 INTRAORL-PERIAPICAL 1 FILM [id number] November 01, 2017 TOPICAL FLUORIDE VARNISH November 01, 2017 INTRAORL-PERIAPICAL EA ADD FILM November 01, 2017 INTRAORL-PERIAPICAL EA ADD FILM November 01, 2017 PROPHYLAXIS - ADULT November 01, 2017 BITEWINGS - FOUR FILMS November 01, 2017 INSTRUCTIONS MEDICATIONS ADMINISTERED No Known Medications [...]
--- OUTSIDE RECORDS SUMMARY | 2018-02-02 17:39 | XMS REPORT ---
Author Author CHRISTO ADELA [facility] Address [address] [place] [address] Care Team Providers Care Commercial Pest Control Representative Name Role Phone ADELA VILLAFUERTE Unavailable PROBLEMS Type Condition ICD9-CM Code HCX21-FO Code Onset Dates Condition Status SNOMED Code Problem Schizoaffective disorder, bipolar type F25.0 Active 49248197 Problem Vaginal burning N94.9 Active 122365068 Problem Other chronic pain G89.29 Active 47259420 Problem Type 2 diabetes mellitus without complications E11.9 Active 952540834 Problem halfway 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 Active 128862326 Problem Hand eczema L30.9 Active 994565440 Problem Bulging of cervical intervertebral disc M50.20 Active 221573568 Problem Type 2 diabetes mellitus without complication, without long-term current use of insulin E11.9 Active 498955831 Problem Gastroesophageal reflux disease, esophagitis presence not specified K21.9 Active 755966368 Problem Cervical dysplasia N87.9 Active 60220473 Problem Hypothyroidism E03.9 Active 74196826 Problem Hypertriglyceridemia E78.1 Active 181781809 Problem Prediabetes R73.09 Active 4086377 Problem Bulge of cervical disc without myelopathy M50.20 Active 205115267 Problem Mild intermittent asthma, uncomplicated J45.20 Active 176996066 Problem Lumbar facet arthropathy M46.96 Active 572842283 Problem Generalized anxiety disorder F41.1 Active 37022365 ALLERGIES Substance Reaction Event Type Date Status Seroquel leg pain Drug Allergy Sep, Active ENCOUNTERS Encounter Location Date Diagnosis [facility] [address], [place] [address] Feb, [facility] [id number] [address] 6542 Dec, [facility] [id number] [place] [address] 99833- 6543 Dec, [place] [id number] [place] [address] 99387- 9588 Dec, Type 2 diabetes mellitus without complications E11.9 ; halfway 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 and BMI 40.0-44.9, adult Z68.41 [place] [id number] [place] [address] 37513- 0712 Dec, Type 2 diabetes mellitus without complication, without long- term current use of insulin E11.9 [place] [id number] [place] [address] 67788- 6688 Dec, [place] [id number] [place] [address] 74224- 2884 Dec, Type 2 diabetes mellitus without complication, without long- term current use of insulin E11.9 [place] [id number] [place] [address] 17671- 5997 Dec, Type 2 diabetes mellitus without complication, without long- term current use of insulin E11.9 ; Gastroesophageal reflux disease, esophagitis presence not specified K21.9 and BMI 40.0-44.9, adult Z68.41 [place] [id number] [place] [address] 48207- 7229 Dec, [facility] [address] [place] [address] [id number] October, Dental examination Z01.20 [place] [id number] [place] [address] 06107- 5206 Sep, [place] [id number] [place] [address] 02984- 4164 Sep, Hypertriglyceridemia E78.1 [place] [id number] [place] [address] 09259- 3502 Sep, Hypothyroidism E03.9 ; Prediabetes R73.09 ; Mild intermittent asthma, uncomplicated J45.20 ; Bulge of cervical disc without myelopathy M50.20 ; Other chronic pain G89.29 ; Hand eczema L30.9 ; Right anterior knee pain M25.561 ; Hypertriglyceridemia E78.1 and BMI 40.0-44.9, adult Z68.41 [place] [address] 44136- 4452 Sep, [place] [address] 45692- 9162 Sep, [place] [address] 24946- 3599 Jul, [place] [address] 16087- 7259 May, Acute non-recurrent maxillary sinusitis J01.00 [facility] [id number] [place] [address] 44966 -0997 Mar, Other viral agents as the cause of diseases classified elsewhere B97.89 and Acute upper respiratory infection, unspecified J06.9 [place] [id number] [place] [address] 62394- 4149 Mar, [place] [address] 56336- 9351 Mar, Neck pain M54.2 [place] [address] 50615- 6894 27 Feb, 2017 Bulge of cervical disc without myelopathy M50.20 [place] [address] 96040- 6193 22 Feb, 2017 Neck pain M54.2 [place] [address] 50992- 9004 11 Feb, [address] 14532- 2120 07 Feb, 2017 Bulge of cervical disc without myelopathy M50.20 ; Hypertriglyceridemia E78.1 ; Hand eczema L30.9 and Hypothyroidism E03.[address] [place] [address]- 5444 Jan, [facility] [address] [id number] October, 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 dental examination Z01.20 [facility] [address] 24983- 5078 Sep, Generalized abdominal pain R10.84 [place] [address] 04396- 9475 Sep, Schizoaffective disorder, bipolar type F25.0 and Generalized anxiety disorder F41.1 [facility] [address] [place] [address] 92357 -7641 Sep, [facility] [address] [place] [address] 87131 -4007 Sep, Vaginal burning N94.9 and Vaginal mitzi B37.3 [facility] [address] [place] [address] 96936 -7200 Sep, Gastroenteritis K52.9 [facility] [address] [place] [address] 01798 -9973 Sep, Thrush B37.0 [facility] [address] [place] [address] 39130 -6180 Sep, Pharyngitis due to other organism J02.8 [place] [address] 72546- 7933 Sep, [facility] [address] [place] [address] 97917 -3121 Aug, Cervicalgia M54.[address] 56914- 6325 09 Aug, 2016 Hypothyroidism E03.9 ; Dry skin L85.3 ; Plantar fasciitis, bilateral M72.2 and Other chronic pain G89.29 [facility] [address] [place] [address] 34656 -0215 Aug, Abrasion T14.8 [facility] [id number] [place] [address] [id number] Aug, Dental examination Z01.20 [facility] [id number] [place] [address] 03429 -9086 Aug, Excessive cerumen in right ear canal H61.21 ; Impacted cerumen of both ears 380.4 and Bronchitis J40 [facility] [id number] [place] [address] 46714 -0315 Jul, Bilateral impacted cerumen H61.23 and Acute non-recurrent frontal sinusitis J01.10 [place] [id number] [place] [address] 82650- 4491 May, Schizoaffective disorder, bipolar type F25.0 and Generalized anxiety disorder F41.1 [place] [address] 75909- 3729 May, [place] [address] 90054- 2937 May, Cervicalgia M54.2 and Hypertriglyceridemia E78.1 [place] [id number] [place] [address] 98125- 1898 May, [place] [id number] [place] [address] 04562- 2137 May, STD exposure Z20.2 and Well woman exam Z01.419 [place] [id number] [place] [address] 07986- 3127 May, [place] [address] 65183- 6261 Mar, [place] [id number] [place] [address] 80868- 5165 Dec, Pain in left knee M25.562 [place] [address] 38993- 8654 Dec, [facility] [address], [place] [address]- 7587 Nov, [facility] [id number] [place] [address] 33308- 6028 October, [facility] [id number] [place] [address] 09608- 4951 Aug, [facility] [id number] [place] [address] 50755- 9615 Jul, [facility] [id number] [place] [address] 91219- 5735 Jul, [facility] [id number] [place] [address] 04273- 4397 Jul, Plantar fasciitis M72.2 and 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 [facility] [id number] [place] [address] 47809- 7565 Jul, [facility] [id number] [place] [address] 68816- 6028 Jun, Plantar fasciitis M72.2 and Physical exam Z00.00 [facility] [address], [place] [address]- 3892 Jun, [facility] [id number] [place] [address] 23135- 6256 Jun, [facility] [address], [place] [address]- 2023 Jun, [facility] [id number] [place] [address] 25909- 4934 May, [facility] [address], [place] [address]- 1438 May, Hypertriglyceridemia E78.1 [facility] [id number] [place] [address] 67933- 0555 May, Hypothyroidism E03.9 ; Prediabetes R73.09 and Hypertriglyceridemia E78.1 [facility] [id number] [place] [address] 19573- 3769 May, [facility] [id number] [place] [address] 72156- 6965 May, [facility] [id number] [place] [address] 08906- 8345 May, Hypothyroidism E03.9 ; Prediabetes R73.09 and Hypertriglyceridemia E78.1 [facility] [id number] [place] [address] 22135- 1835 Apr, Schizoaffective disorder, bipolar type F25.0 [facility] [id number] [place] [address] 28528- 2876 Mar, [facility] [id number] [place] [address] 32705- 2390 Mar, [facility] [id number] [place] [address] 04590- 4578 Mar, [facility] [id number] [place] [address] 14455- 4702 Feb, [facility] [id number] [place] [address] 66117- 5285 Feb, [facility] [id number] [place] [address] 41519- 6674 Feb, [facility] [id number] [place] [address] 53532- 2075 Feb, Screen for STD (sexually transmitted disease) V74.5 ; Counseling on other sexually transmitted diseases V65.45 ; Back pain 724.5 ; Contact with or exposure to venereal diseases V01.6 and Pelvic pain in female 625.9 [facility] [id number] [place] [address] 56613- 2349 Feb, Schizoaffective disorder, unspecified 295.70 and Anxiety state, unspecified 300.00 [facility] [id number], [place] [address]- 4732 14 Feb, 2015 [facility] [id number] [place] [address] 82173- 8250 Feb, [facility] [id number] [place] [address] 60418- 9311 Feb, Impacted cerumen of both ears 380.4 and Mild intermittent asthma 493.90 [facility] [id number] [place] [address] 90558- 1259 Feb, [facility] [id number] [place] [address] 84911- 2500 Jan, [facility] [id number] [place] [address] 98953- 0320 Jan, [facility] [id number] [place] [address] 26789- 0674 Jan, [facility] [id number] [place] [address] 29361- 3260 Jan, [facility] [id number] [place] [address] 83275- 0133 Jan, [facility] [address], [place] [address]- 4227 Jan, [facility] [id number] [place] [address] 93602- 2458 Jan, [facility] [address], [place] [address]- 1246 Jan, [facility] [id number] [place] [address] 37691- 0649 Jan, [facility] [id number], [place] [address]- 2668 Jan, [facility] [id number] [place] [address] 08722- 4195 Jan, [facility] [address], [place] [address]- 7636 Dec, Schizoaffective disorder, unspecified 295.70 [facility] [address]- 4494 Dec, [facility] [address] 8054 Dec, [facility] [address], [place] [address]- 5849 Dec, [facility] [id number] [place] [address] 154755- 9983 Dec, [facility] [address], [place] [address]- 4711 Dec, [facility] [address] [id number] Dec, Dental examination V72.2 [facility] [address], [place] [address]- 3111 Dec, Schizoaffective disorder, unspecified 295.70 ; Persistent disorder of initiating 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.42 and Anxiety state, unspecified 300.00 [facility] [address] 6093 Dec, [facility] [address], [place] [address]- 7931 Nov, High risk medication use V58.69 [facility] [address], [place] [address]- 1431 Nov, [facility] [id number], [place] [address]- 1785 Nov, [facility] [address], [place] [address]- 0733 Nov, High risk medication use V58.69 [facility] [id number], [place] [address]- 3985 Nov, [facility] [id number] [place] [address] 85966- 3660 Nov, [facility] [id number] [place] [address] 66869- 6847 Nov, [facility] [id number] [place] [address] 93830- 0930 Nov, Hypothyroidism 244.9 ; Hypertriglyceridemia 272.1 and Prediabetes 790.29 [facility] [id number] [place] [address] 38814- 4656 Nov, [facility] [id number] [place] [address] 26113- 2826 Nov, [facility] [id number] [place] [address] 05268- 0519 Nov, Bulge of cervical disc without myelopathy 722.0 ; Lumbar facet arthropathy 721.3 ; Family history of stroke V17.1 ; Hyperthyroidism 242.90 and 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 long-term current use of medication V58.69 [facility] [id number] [place] [address] 13357- 8239 Nov, [facility] [id number] [place] [address] 17888- 8636 October, [facility] [id number] [place] [address] 72167- 7679 October, [facility] [id number] [place] [address] 30495- 6242 October, [facility] [id number] [place] [address] 39724- 0484 October, [facility] [id number] [place] [address] 45087- 8576 October, [facility] [id number] [place] [address] 02057- 9608 October, [facility] [address], [place] [address]- 5387 October, Schizoaffective disorder, unspecified 295.70 and Persistent disorder of initiating 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.42 [facility] [address], [place] [address]- 4484 October, Schizoaffective disorder, unspecified 295.70 [facility] [id number] [place] [address] 24045- 6674 October, [facility] [id number] [place] [address] 574037- 3189 October, [facility] [id number] [place] [address] 46643- 3889 October, [facility] [id number] [place] [address] 78226- 7340 Sep, Lumbago of lumbar region with sciatica 724.2 and Neck pain 723.1 [facility] [id number], [place] [address]- 9757 Sep, [facility] [id number] [place] [address] 09836- 5416 Sep, [facility] [address], [place] [address]- 9536 Aug, [facility] [address], [place] [address]- 6131 Aug, [facility] [address], [place] [address]- 4438 Aug, [facility] [id number] [place] [address] 213744- 9668 Aug, [facility] [id number] [address]- 3126 Aug, [facility] [address] 3966 Aug, [facility] [place] [facility] [address] [id number] [place] [address]- 7001 20 Aug, 2014 [facility] [place] [facility] [address] [id number] [place] [address]- 2968 20 Aug, 2014 [facility] [place] [facility] [address] [id number] [place] [address]- 5394 19 Aug, 2014 [facility] [place] [facility] [address] [id number] [place] [address]- 3505 19 Aug, 2014 [facility] [place] [facility] [address] [id number] [place] [address]- 3368 18 Aug, 2014 [facility] [place] [facility] [address] [id number] [place] [address]- 5817 18 Aug, 2014 [facility] [place] [facility] [address] [id number] [place] [address]- 6533 18 Aug, 2014 [facility] [place] [facility] [address] [id number] [place] [address]- 8596 18 Aug, 2014 [facility] [place] [facility] [address] [id number] [place] [address]- 0304 16 Aug, 2014 [facility] [place] [facility] [address] [id number] [place] [address]- 8632 Aug, [facility] [place] [facility] [address] [id number] [place] [address]- 0659 12 Aug, 2014 [facility] [place] [facility] [address] [id number] [place] [address]- 5682 Aug, [facility] [place] [facility] [address] [id number] [place] [address]- 3610 Aug, [facility] [place] [facility] [address] [id number] [place] [address]- 9178 09 Aug, 2014 [facility] [place] [facility] [address] [id number] [place] [address]- 3422 09 Aug, 2014 [facility] [place] [facility] [address] [id number] [place] [address]- 9454 06 Aug, 2014 [facility] [place] [facility] [address] [id number] [place] [address]- 9182 05 Aug, 2014 [facility] [place] [facility] [address] [facility] [id number] [place] [address]- 0479 04 Aug, 2014 [facility] [place] [facility] [address] [facility] [id number] [place] [address]- 5334 04 Aug, 2014 [facility] [place] [facility] [address] [facility] [id number] [place] [address]- 4987 Aug, 2014 [facility] [place] [facility] [address] [facility] [id number] [place] [address]- 7699 Aug, 2014 [facility] [place] [facility] [address] [facility] [id number] [place] [address]- 9921 27 Jul, 2014 [facility] [place] [facility] [address] [facility] [id number] [place] [address]- 7924 27 Jul, 2014 [facility] [place] [facility] [address] [facility] [id number] [place] [address]- 1989 26 Jul, 2014 [facility] [place] [facility] [address] [facility] [id number] [place] [address]- 4602 20 Jul, 2014 [facility] [place] [facility] [address] [facility] [id number] [place] [address]- 9198 20 Jul, 2014 [facility] [place] [facility] [address] [facility] [id number] [place] [address]- 3653 17 Jul, 2014 [facility] [place] [facility] [address] [facility] [id number] [place] [address]- 8203 17 Jul, 2014 [facility] [place] [facility] [address] [facility] [id number] [place] [address]- 1367 16 Jul, 2014 [facility] [place] [facility] [address] [facility] [id number] [place] [address]- 2071 16 Jul, 2014 [facility] [place] [facility] [id number] [place] [address]- 2091 Jul, [facility] [place] [facility] [address] [id number] [place] [address]- 3649 Jun, [facility] [place] [facility] [address] [id number] [place] [address]- 6263 Jun, [facility] [place] [facility] [address] [id number] [place] [address] Jun, [facility] [place] [facility] [address] [id number] [place] [address] Jun, [facility] [place] [facility] [address] [id number] [place] [address] Jun, [facility] [place] [facility] [address] [id number] [place] [address] Jun, [facility] [place] [facility] [address] [id number] [place] [address] Jun, [facility] [place] [facility] [address] [id number] [place] [address] May, [facility] [place] [facility] [address] [id number] [place] [address] May, [facility] [place] [facility] [address] [id number] [place] [address] May, [facility] [place] [facility] [address] [id number] [place] [address] May, [facility] [place] [facility] [address] [id number], [place] [address] May, [facility] [place] [facility] [address] [id number] [place] [address] May, [facility] [place] [facility] [address] [id number] [place] [address] May, [facility] [place] [facility] [address] [id number] [place] [address] May, [facility] [place] [facility] [address] [id number] [place] [address] May, [facility] [place] [facility] [address] [id number] [place] [address] May, [facility] [place] [facility] [address] [id number] [place] [address] Apr, [facility] [place] [facility] [address] [id number] [place] [address] Apr, [facility] [place] [facility] [address] [id number] [place] [address] Apr, [facility] [place] [facility] [address] [id number] [place] [address] Apr, [facility] [place] [facility] [address] [id number] [place] [address] Apr, [facility] [place] [facility] [address] [id number] [place] [address] Apr, [facility] [place] [facility] [address] [id number] [place] [address] Apr, [facility] [place] [facility] [address] [id number] [place] [address] Apr, [facility] [place] [facility] [address] [id number] [place] [address]- [address] Apr, [facility] [place] [facility] [address] [id number] [place] [address] Mar, [facility] [place] [facility] [address] [id number], [place] [address] Mar, [facility] [place] [facility] [address] [id number] [place] [address] Mar, [facility] [place] [facility] [address] [id number] [place] [address] Mar, [facility] [place] [facility] [address] [id number], [place] [address] Mar, [facility] [place] [facility] [address] [id number] [place] [address] Mar, [facility] [place] [facility] [address] [id number] [place] [address] Mar, [facility] [place] [facility] [address] [id number] [place] [address]- [address] Mar, [facility] [place] [facility] [address] [id number] [place] [address] Mar, [facility] [place] [facility] [address] [id number] [place] [address] Mar, [facility] [place] [facility] [address] [id number] [place] [address] Feb, [facility] [place] [facility] [address] [id number] [place] [address] Feb, [facility] [facility] [address] [id number] [place] [address] Feb, [facility] [place] [facility] [address] [id number] [place] [address] Feb, [facility] [place] [facility] [address] [id number] [place] [address] Feb, [facility] [place] [facility] [address] [id number] [place] [address] Jan, [facility] [place] [facility] [address] [id number] [place] [address] Jan, [facility] [place] [facility] [address] [id number] [place] [address] Jan, [facility] [place] [facility] [address] [id number] [place] [address] Jan, [facility] [place] [facility] [address] [id number] [place] [address] Jan, [facility] [place] [facility] [address] [id number] [place] [address] Jan, [facility] [place] [facility] [address] [id number] [place] [address] Jan, [facility] [place] [facility] [address] [id number] [place] [address] Jan, [facility] [place] [facility] [address] [id number] [place] [address] Jan, [facility] [place] [facility] [address] [id number] [place] [address] Dec, [facility] [place] [facility] [address] [id number] [place] [address] Dec, [facility] [place] [address] [id number] [place] [address] Dec, [facility] [place] [facility] [address] [id number] [place] [address] Dec, [facility] [place] [facility] [address] [id number] [place] [address] Dec, [facility] [place] [address] [id number] [place] [address] Dec, [facility] [place] [facility] [address] [id number] [place] [address] Dec, [facility] [place] [facility] [address] [id number] [place] [address] Dec, [facility] [address] [id number] [place] [address] Nov, [facility] [place] [address] [id number] [place] [address] Nov, [facility] [place] [address] [id number] [place] [address] 112[address] Nov, [facility] [address] [id number] [place] [address] Nov, [facility] [place] [address] [id number] [place] [address]- [address] Nov, [facility] [place] [address] [id number] [place] [address] 80[address] Nov, [facility] [place] [address] [id number] [place] [address]- [address]24 Nov, [facility] [address] [id number] [place] [address]- [address] Nov, [facility] [place] [facility] [address] [id number] [place] [address]- [address]108 Nov, [facility] [address] [id number] [place] [address] 2405 Nov, [facility] [address] [id number] [place] [address] Nov, [facility] [facility] [address] [id number] [place] [address]97 Nov, [facility] [address] [id number] [place] [address] October, [facility] [address] [id number] [place] [address]69 October, [facility] [address] [id number] [place] [address] October, [facility] [address] [id number] [place] [address] October, [facility] [address] [id number] [place] [address] October, [facility] [address] [id number] [place] [address] Sep, [facility] [address] [id number] [place] [address] Sep, [facility] [address] [id number] [place] [address] Sep, [facility] [address] [id number] [place] [address]99 Sep, [facility] [address] [id number] [place] [address] Sep, [facility] [address] [id number] [place] [address] Sep, [facility] [address] [id number] [place] [address] Sep, [facility] [address] [id number] [place] [address] Sep, [facility] [address] [id number] [place] [address] Sep, [facility] [address] [id number] [place] [address] Sep, [facility] [address] [id number] [place] [address] Sep, [facility] [address] [id number] [place] [address] 60[address] Sep, [facility] [address] [id number] [place] [address] Sep, [facility] [address] [id number] [place] [address] 137[address] Sep, [facility] [address] [id number] [place] [address]185 Sep, [facility] [address] [id number] [place] [address]- [address]792 Sep, [facility] [address] [id number] [place] [address] Sep, [facility] [address] [id number] [place] [address]- 4689 Sep, [facility] [address] [id number] [place] [address]- 6359 Sep, [facility] [address] [id number] [place] [address] Aug, [facility] [address] [id number] [place] [address] Aug, [facility] [address] [id number] [place] [address]- [address] Aug, [facility] [address] [id number] [place] [address] Aug, [facility] [address] [id number] [place] [address] 1511 Jun, [facility] [address] [id number] [place] [address] Jun, [facility] [address] [id number] [place] [address] Mar, [facility] [address] [id number] [place] [address]34 Mar, [facility] [address] [id number] [place] [address] Nov, [facility] [address] [id number] [place] [address]- 0694 Sep, [facility] [address] [id number] [place] [address]- 43[address] Jun, [facility] [address] [id number] [place] [address]- 3062 Jun, [facility] [address] [id number] [place] [address]- 1415 Apr, [facility] [address] [id number] [place] [address]- 1198 Apr, [facility] [address] [id number] [place] [address] Apr, [facility] [address] [facility] [id number] [place] [address] Mar, [facility] [address] [facility] [id number] [address] Feb, IMMUNIZATIONS No Known Immunizations SOCIAL HISTORY Never Assessed REASON FOR VISIT general physical, patgient states she wants to have bloo dwork done -- yasir velásquez, needing refill on some medications , having pain on rt knew x 1 month PLAN OF CARE Activity Details Follow Up 3 Months Reason:Chronic pain/eczema VITAL SIGNS Height 62 in 2017-10-10 Weight 229.0 lbs 2017-10-10 Temperature 98.0 degrees Fahrenheit 2017-10-10 Heart Rate 80 bpm 2017-10-10 Respiratory Rate 22 2017-10-10 BMI 41.88 kg/m2 2017-10-10 Blood pressure systolic 138 mmHg 2017-10-10 Blood pressure diastolic 86 mmHg 2017-10-10 MEDICATIONS Medication Instructions Dosage Frequency Start Date End Date Duration Status Synthroid 75 MCG Orally Once a day 1 tablet 24h 30 Not-Taking Debrox 6.5 % 5-10 drops in left ear twice daily for up to 4 days Feb Not-Taking Depakote ER 250 MG Active Pravastatin Sodium 20 mg Orally Once a day 1 tablet 24h 90 days Active Fluticasone Propionate 50 MCG/ACT Nasally Once a day 1 spray in each nostril 24h Aug, 30 day(s) Active Haloperidol 5 MG Orally Twice a day 1 tablet 12h Active Ibuprofen 600 MG Orally Three times a day 1 tablet with food or milk as needed 8h Mar, 90 days Active Invega 6 MG Orally Once a day 1 tablet in the morning 24h Active Betamethasone Dipropionate 0.05 % Externally Once a day for 14 days, stop for 14 days and repeat cycle 1 application to affected area Feb,Nov 14 days Active Proventil HFA 108 (90 Base) MCG/ACT Inhalation every 4-6 hours as needed 2 puffs as needed Sep, Active RESULTS No Results PROCEDURES Procedure Date Ordered Result Body Site LAB NOT BILLED BY [facility] October 10, 2017 X-RAY EXAM OF KNEE, 3 October 10, 2017 VENIPUNCT, ROUTINE* October 10, 2017 INSTRUCTIONS MEDICATIONS ADMINISTERED No Known Medications [...]
--- OUTSIDE RECORDS SUMMARY | 2018-02-02 17:39 | XMS REPORT ---
Author Author CHRISTO ADELA [facility] Address [address] [place] [address] Care Team Providers Care Manager Strategic Partnerships Name Role Phone ADELA VILLAFUERTE Unavailable PROBLEMS Type Condition ICD9-CM Code JXQ49-OD Code Onset Dates Condition Status SNOMED Code Problem Schizoaffective disorder, bipolar type F25.0 Active 65831598 Problem Vaginal burning N94.9 Active 498638102 Problem Other chronic pain G89.29 Active 65802543 Problem Type 2 diabetes mellitus without complications E11.9 Active 835517259 Problem intermediate 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 Active 983175219 Problem Hand eczema L30.9 Active 008981725 Problem Bulging of cervical intervertebral disc M50.20 Active 098227021 Problem Type 2 diabetes mellitus without complication, without long-term current use of insulin E11.9 Active 422814971 Problem Gastroesophageal reflux disease, esophagitis presence not specified K21.9 Active 019097890 Problem Cervical dysplasia N87.9 Active 92585524 Problem Hypothyroidism E03.9 Active 99893452 Problem Hypertriglyceridemia E78.1 Active 480015039 Problem Prediabetes R73.09 Active 0500537 Problem Bulge of cervical disc without myelopathy M50.20 Active 652841628 Problem Mild intermittent asthma, uncomplicated J45.20 Active 186973150 Problem Lumbar facet arthropathy M46.96 Active 585841847 Problem Generalized anxiety disorder F41.1 Active 35616412 ALLERGIES No Information ENCOUNTERS Encounter Location Date Diagnosis [facility] [address], [place] [address] Feb, [facility] [id number] [place] [address] 99601- 1594 Dec, [facility] [address], [place] [address] Dec, [facility] [place] [address] [place] [address] 52160- 0848 Dec, Type 2 diabetes mellitus without complications E11.9 ; 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 and BMI 40.0-44.9, adult Z68.41 [place] [address] [place] [id number] [place] [address] 88784- 5840 Dec, Type 2 diabetes mellitus without complication, without long- term current use of insulin E11.9 [place] [address] [place] [id number] [place] [address] 85016- 4114 Dec, [place] [address] [place] [id number] [place] [address] 18257- 6402 Dec, Type 2 diabetes mellitus without complication, without long- term current use of insulin E11.9 [place] [address] [place] [id number] [place] [address] 09142- 3473 Dec, Type 2 diabetes mellitus without complication, without long- term current use of insulin E11.9 ; Gastroesophageal reflux disease, esophagitis presence not specified K21.9 and BMI 40.0-44.9, adult Z68.41 [place] [address] [place] [id number] [place] [address] 83523- 4217 Dec, [facility] [address] [place] [id number] [place] [address] [id number] October, Dental examination Z01.20 [place] [address] [place] [id number] [place] [address] 00481- 5477 Sep, [place] [address] [place] [id number] [place] [address] 26250- 7396 Sep, Hypertriglyceridemia E78.1 [place] [address] [place] [id number] [place] [address] 80334- 8677 Sep, Hypothyroidism E03.9 ; Prediabetes R73.09 ; Mild intermittent asthma, uncomplicated J45.20 ; Bulge of cervical disc without myelopathy M50.20 ; Other chronic pain G89.29 ; Hand eczema L30.9 ; Right anterior knee pain M25.561 ; Hypertriglyceridemia E78.1 and BMI 40.0-44.9, adult Z68.41 [place] [address] 86543- 1808 Sep, [place] [address] 40718- 9088 Sep, [place] [address] 67587- 2212 Jul, [place] [address] 32903- 5730 May, Acute non-recurrent maxillary sinusitis J01.00 [facility] [place] [address] 60792 -8805 Mar, Other viral agents as the cause of diseases classified elsewhere B97.89 and Acute upper respiratory infection, unspecified J06.9 [place] [address] 28596- 6030 Mar, [place] [address] 77234- 2596 Mar, Neck pain M54.2 [place] [address] 12538- 5379 Feb, Bulge of cervical disc without myelopathy M50.20 [place] [address] 29892- 3766 Feb, Neck pain M54.2 [place] [address] 57133- 0303 Feb, [place] [address] 04944- 0708 Feb, Bulge of cervical disc without myelopathy M50.20 ; Hypertriglyceridemia E78.1 ; Hand eczema L30.9 and Hypothyroidism E03.9 [place] [address] 07703- 1176 Jan, [facility] [address] [place] [address] [id number] October, 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 dental examination Z01.20 [place] [address] 83152- 3568 Sep, Generalized abdominal pain R10.[address] 24278- 6250 Sep, Schizoaffective disorder, bipolar type F25.0 and Generalized anxiety disorder F41.1 [facility] [address] [place] [address] 37055 -0802 Sep, [facility] [address] [place] [address] 27622 -6807 Sep, Vaginal burning N94.9 and Vaginal mitzi B37.3 [facility] [address] 14224 -2324 Sep, Gastroenteritis K52.9 [facility] [address] [place] [address] 32208 -6263 Sep, Thrush B37.0 [facility] [address] [place] [address] 80573 -5276 Sep, Pharyngitis due to other organism J02.[address] 49378- 8214 Sep, [facility] [address] [place] [address] 63120 -2022 Aug, Cervicalgia M54.[address] 89273- 2033 09 Aug, 2016 Hypothyroidism E03.9 ; Dry skin L85.3 ; Plantar fasciitis, bilateral M72.2 and Other chronic pain G89.29 [facility] [address] [place] [address] 85074 -9865 07 Mar, 2017 Abrasion T14.8 [facility] [address] [place] [address] [id number] Aug, 2017 Dental examination Z01.20 [facility] [address] 63747 -4359 Aug, Excessive cerumen in right ear canal H61.21 ; Impacted cerumen of both ears 380.4 and Bronchitis J40 [facility] [address] 18034 -9155 Jul, Bilateral impacted cerumen H61.23 and Acute non-recurrent frontal sinusitis J01.10 [place] [address] 69291- 6384 May, Schizoaffective disorder, bipolar type F25.0 and Generalized anxiety disorder F41.[address] 39760- 3285 May, [place] [address] 21318- 0467 May, Cervicalgia M54.2 and Hypertriglyceridemia E78.1 [place] [address] 16409- 1135 May, [place] [address] 72073- 3432 May, STD exposure Z20.2 and Well woman exam Z01.419 [place] [address] 65108- 9787 May, [place] [address] 06175- 1934 Mar, [place] [address] 35343- 3203 Dec, Pain in left knee M25.562 [place] [address] 34670- 2752 Dec, [place] [address], [place] [address]- 2945 Nov, [facility] [address], [place] [address]- 6241 October, [facility] [address], [place] [address]- 6277 Aug, [facility] [address] [place] [id number] [place] [address] 88598- 6794 Jul, [facility] [address] [place] [address] 70946- 1283 Jul, [facility] [address] [place] [id number] [place] [address] 80148- 4411 Jul, Plantar fasciitis M72.2 and 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 [facility] [address] [place] [address] 90407- 2965 Jul, [facility] [address], [place] [address]- 6314 Jun, Plantar fasciitis M72.2 and Physical exam Z00.00 [facility] [address], [place] [address]- 1537 Jun, [facility] [address], [place] [address]- 6884 Jun, [facility] [address], [place] [address]- 2518 Jun, [facility] [address], [place] [address]- 4594 May, [facility] [address] [place] [id number] [address]- 5818 May, Hypertriglyceridemia E78.1 [facility] [address], [place] [address]- 1632 May, Hypothyroidism E03.9 ; Prediabetes R73.09 and Hypertriglyceridemia E78.1 [facility] [address] [place] [id number] [place] [address] 76446- 8666 May, [facility] [address] [place] [id number] [place] [address] 15107- 0042 May, [facility] [address] [place] [id number] [place] [address] 89890- 2132 May, Hypothyroidism E03.9 ; Prediabetes R73.09 and Hypertriglyceridemia E78.1 [facility] [address] [place] [id number] [place] [address] 80260- 1690 Apr, Schizoaffective disorder, bipolar type F25.0 [place] [address] 44736- 4899 Mar, [facility] [address] [place] [id number] [place] [address] 47163- 9571 Mar, [facility] [address] [place] [id number] [place] [address] 91019- 7538 Mar, [facility] [address] [place] [id number] [place] [address] 08553- 6278 Feb, [facility] [address] [place] [id number] [place] [address] 06120- 0548 24 Feb, 2015 [place] [address] [place] [id number] [place] [address] 27308- 5024 16 Feb, 2015 [facility] [address] [place] [id number] [place] [address] 28317- 7228 Feb, Screen for STD (sexually transmitted disease) V74.5 ; Counseling on other sexually transmitted diseases V65.45 ; Back pain 724.5 ; Contact with or exposure to venereal diseases V01.6 and Pelvic pain in female 625.9 [facility] [address] [place] [address] 04290- 6728 15 Feb, 2015 Schizoaffective disorder, unspecified 295.70 and Anxiety state, unspecified 300.00 [place] [address] [id number], [place] [address]- 3819 14 Feb, 2015 [facility] [address], [place] [address]- 6244 10 Feb, 2015 [facility] [address] [facility] [id number], [place] [address]- 2548 03 Feb, 2015 Impacted cerumen of both ears 380.4 and Mild intermittent asthma 493.90 [facility] [address] [id number], [place] [address]- 6194 Feb, [facility] [address] [facility] [id number] [place] [address]- 2680 Jan, [facility] [address] [facility] [id number], [place] [address]- 4745 Jan, [facility] [address] [place] [id number] [place] [address] 35483- 2422 Jan, [facility] [address], [place] [address]- 8509 Jan, [facility] [address], [place] [address]- 5927 Jan, [facility] [address], [place] [address]- 2269 Jan, [facility] [address], [place] [address]- 5949 Jan, [facility] [address] [facility] [id number], [place] [address]- 3909 Jan, [facility] [address] [facility] [id number], [place] [address]- 1890 Jan, [facility] [address] [facility] [id number], [place] [address]- 7080 Jan, [facility] [address] [place] [id number], [place] [address]- 1724 Jan, [facility] [place] [facility] [address], [place] [address]- 6129 Dec, Schizoaffective disorder, unspecified 295.70 [facility] [address], [place] [address]- 7100 Dec, 2014 [facility] [address], [place] [address]- 8590 Dec, 2014 [facility] [address] [place] [id number] [place] [address] 68634- 8810 Dec, [facility] [address], [place] [address]- 2852 Dec, [facility] [address] [place] [address] 72592- 7089 Dec, [facility] [address] [place] [address] [id number] Dec, Dental examination V72.2 [facility] [address], [place] [address]- 6063 Dec, Schizoaffective disorder, unspecified 295.70 ; Persistent disorder of initiating 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.42 and Anxiety state, unspecified 300.00 [facility] [address], [place] [address]- 2102 Dec, [facility] [address], [place] [address]- 8179 Nov, High risk medication use V58.69 [facility] [address], [place] [address]- 9140 Nov, [facility] [address], [place] [address]- 0273 Nov, [facility] [address], [place] [address]- 5792 Nov, High risk medication use V58.69 [facility] [address], [place] [address]- 8992 Nov, [facility] [address], [place] [address]- 6643 Nov, [facility] [address] [place] [id number] [place] [address] 34060- 4907 Nov, [facility] [address] [place] [id number] [place] [address] 41431- 5556 Nov, Hypothyroidism 244.9 ; Hypertriglyceridemia 272.1 and Prediabetes 790.29 [facility] [address] [place] [id number] [place] [address] 66682- 1561 Nov, [facility] [address] [place] [id number] [place] [address] 14166- 0406 Nov, [facility] [address] [place] [id number] [place] [address] 64043- 4999 Nov, Bulge of cervical disc without myelopathy 722.0 ; Lumbar facet arthropathy 721.3 ; Family history of stroke V17.1 ; Hyperthyroidism 242.90 and 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 long-term current use of medication V58.69 [facility] [address], [place] [address]- 8468 Nov, [facility] [address] [place] [address] 51710- 8450 October, [facility] [address], [place] [address]- 7565 October, [facility] [address], [place] [address]- 6130 October, [facility] [address], [place] [address]- 5584 October, [facility] [address] [place] [id number] [place] [address] 71670- 0578 October, [facility] [address], [place] [address]- 1607 October, [facility] [address] [place] [id number] [address] 9028 October, Schizoaffective disorder, unspecified 295.70 and Persistent disorder of initiating 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.42 [facility] [address] [place] [id number] [place] [address] 412665- 8430 October, Schizoaffective disorder, unspecified 295.70 [facility] [address] [place] [id number] [place] [address] 432563- 4228 October, [facility] [address] [place] [id number] [place] [address] 215449- 4657 October, [facility] [address] [place] [id number] [place] [address] 124889- 8091 October, [facility] [address] [place] [id number] [place] [address] 39726- 6255 Sep, Lumbago of lumbar region with sciatica 724.2 and Neck pain 723.1 [facility] [address] [place] [id number] [place] [address] 78065- 7660 Sep, [facility] [address] [place] [id number] [place] [address] 31883- 7582 Sep, [facility] [address] [place] [id number] [place] [address] 81996- 7302 Aug, [facility] [address], [place] [address]- 7776 Aug, [facility] [address], [place] [address]- 1871 Aug, [facility] [address], [place] [address]- 8465 Aug, [facility] [address] [place] [id number] [place] [address] 881967- 2286 Aug, [facility] [address]- 9940 Aug, [facility] [address] [place] [id number] [place] [address], [place] [address]- 1798 20 Aug, 2014 [facility] [place] [facility] [address] [id number] [place] [address]- 4283 20 Aug, 2014 [facility] [place] [facility] [address] [id number] [place] [address]- 3151 19 Aug, 2014 [facility] [place] [facility] [address] [id number] [place] [address]- 2118 19 Aug, 2014 [facility] [place] [facility] [address] [id number] [place] [address]- 4505 18 Aug, 2014 [facility] [place] [facility] [address] [id number] [place] [address]- 6311 18 Aug, 2014 [facility] [place] [facility] [address] [id number] [place] [address]- 1969 18 Aug, 2014 [facility] [place] [facility] [address] [id number] [place] [address]- 7904 18 Aug, 2014 [facility] [place] [facility] [address] [id number] [place] [address]- 8091 16 Aug, 2014 [facility] [place] [facility] [address] [id number] [place] [address]- 1497 12 Aug, 2014 [facility] [place] [facility] [address] [id number] [place] [address]- 7848 12 Aug, 2014 [facility] [place] [facility] [address] [id number] [place] [address]- 0394 12 Aug, 2014 [facility] [place] [facility] [address] [id number] [place] [address]- 8989 Aug, 2014 [facility] [place] [facility] [address] [id number] [place] [address]- 9940 09 Aug, 2014 [facility] [place] [facility] [address] [id number] [place] [address]- 8337 09 Aug, 2014 [facility] [place] [facility] [address] [id number] [place] [address]- 3759 06 Aug, 2014 [facility] [place] [facility] [address] [id number] [place] [address]- 3657 05 Aug, 2014 [facility] [place] [facility] [address] [id number] [place] [address]- 5734 Aug, 2014 [facility] [place] [facility] [address] [id number] [place] [address]- 7772 Aug, 2014 [facility] [place] [facility] [address] [id number] [place] [address]- 4226 Aug, 2014 [facility] [place] [facility] [address] [id number] [place] [address]- 4853 Aug, 2014 [facility] [place] [facility] [address] [id number] [place] [address]- 4308 Jul, 2014 [facility] [place] [facility] [address] [facility] [id number] [place] [address]- 2859 Jul, 2014 [facility] [place] [facility] [address] [facility] [id number] [place] [address]- 9694 26 Jul, 2014 [facility] [place] [facility] [address] [id number] [place] [address]- 0621 20 Jul, 2014 [facility] [place] [facility] [address] [facility] [id number] [place] [address]- 5575 20 Jul, 2014 [facility] [place] [facility] [address] [facility] [id number] [place] [address]- 5271 17 Jul, 2014 [facility] [place] [facility] [address] [id number] [place] [address]- 1953 17 Jul, 2014 [facility] [place] [facility] [address] [id number] [place] [address]- 5392 16 Jul, 2014 [facility] [place] [facility] [address] [id number] [place] [address]- 0789 16 Jul, 2014 [facility] [place] [facility] [address] [facility] [id number] [place] [address]- 5346 13 Jul, 2014 [facility] [place] [facility] [address] [facility] [id number] [place] [address]- 9386 Jun, [facility] [address] [id number] [place] [address]- 4072 Jun, [facility] [place] [facility] [address] [id number] [place] [address]- 6229 Jun, [facility] [place] [facility] [address] [id number] [place] [address]- 1007 Jun, [facility] [place] [facility] [address] [id number] [place] [address]- 6754 Jun, [facility] [place] [facility] [address] [id number] [place] [address] Jun, [facility] [place] [facility] [address] [id number] [place] [address] Jun, [facility] [address] [id number] [place] [address] May, [facility] [place] [facility] [address] [id number] [place] [address] May, [facility] [place] [facility] [address] [id number] [place] [address] May, [facility] [place] [facility] [address] [facility] [id number] [place] [address] May, [facility] [place] [facility] [address] [id number] [place] [address] May, [facility] [place] [facility] [address] [id number] [place] [address] May, [facility] [place] [facility] [address] [id number] [place] [address] May, [facility] [place] [facility] [address] [id number] [place] [address] May, [facility] [place] [facility] [address] [id number] [place] [address] May, [facility] [place] [facility] [address] [id number] [place] [address] May, [facility] [place] [facility] [address] [id number] [place] [address] Apr, [facility] [place] [facility] [address] [id number] [place] [address] Apr, [facility] [place] [facility] [address] [id number] [place] [address] Apr, [facility] [place] [facility] [address] [id number] [place] [address] Apr, [facility] [place] [facility] [address] [id number] [place] [address] Apr, [facility] [place] [facility] [address] [id number] [place] [address] Apr, [facility] [place] [facility] [address] [id number] [place] [address] Apr, [facility] [place] [facility] [address] [id number] [place] [address] Apr, [facility] [place] [facility] [address] [id number] [place] [address] Apr, [facility] [place] [facility] [address] [id number] [place] [address] Mar, [facility] [place] [facility] [address] [id number] [place] [address] Mar, [facility] [place] [facility] [address] [id number] [place] [address] Mar, [facility] [place] [facility] [address] [id number] [place] [address] Mar, [facility] [place] [facility] [address] [id number] [place] [address] Mar, [facility] [place] [facility] [address] [id number] [place] [address] Mar, [facility] [place] [facility] [address] [id number] [place] [address] Mar, [facility] [place] [facility] [address] [id number] [place] [address] Mar, [facility] [place] [facility] [address] [id number] [place] [address] Mar, [facility] [place] [facility] [address] [id number] [place] [address] Mar, [facility] [place] [facility] [address] [id number] [place] [address] Feb, [facility] [place] [facility] [address] [id number] [place] [address] Feb, [facility] [place] [facility] [address] [id number] [place] [address] Feb, [facility] [place] [facility] [address] [id number] [place] [address] Feb, [facility] [place] [facility] [address] [id number] [place] [address] Feb, [facility] [place] [facility] [address] [id number] [place] [address] Jan, [facility] [place] [facility] [address] [id number] [place] [address] Jan, [facility] [place] [facility] [address] [id number] [place] [address] Jan, [facility] [place] [facility] [address] [id number] [place] [address] Jan, [facility] [place] [facility] [address] [id number] [place] [address] Jan, [facility] [place] [facility] [address] [id number] [place] [address] Jan, [facility] [place] [facility] [address] [id number] [place] [address] Jan, [facility] [place] [facility] [address] [id number] [place] [address] Jan, [facility] [place] [facility] [address] [id number] [place] [address] Jan, [facility] [place] [facility] [address] [id number] [place] [address] Dec, [facility] [place] [facility] [address] [id number] [place] [address] Dec, [facility] [place] [facility] [address] [id number] [place] [address] Dec, [facility] [place] [facility] [address] [id number] [place] [address] Dec, [facility] [place] [facility] [address] [id number] [place] [address] Dec, [facility] [place] [facility] [address] [id number] [place] [address] Dec, [facility] [place] [facility] [address] [id number] [place] [address] Dec, [facility] [place] [facility] [address] [id number] [place] [address] Dec, [facility] [place] [facility] [address] [id number] [place] [address] Nov, [facility] [place] [facility] [address] [id number] [place] [address] Nov, [facility] [place] [facility] [address] [id number] [place] [address] Nov, [facility] [place] [facility] [address] [id number] [place] [address] Nov, [facility] [place] [facility] [address] [id number] [place] [address] Nov, [facility] [place] [facility] [address] [id number] [place] [address] Nov, [facility] [place] [facility] [address] [id number] [place] [address] Nov, [facility] [place] [facility] [address] [id number] [place] [address] Nov, [facility] [place] [facility] [address] [id number] [place] [address] Nov, [facility] [place] [facility] [address] [id number] [place] [address] Nov, [facility] [place] [facility] [address] [id number] [place] [address] Nov, [facility] [place] [facility] [address] [id number] [place] [address] 1999 Nov, [facility] [place] [facility] [address] [id number] [place] [address] October, [facility] [place] [facility] [address] [id number] [place] [address] October, [facility] [place] [facility] [address] [id number] [place] [address] October, [facility] [place] [facility] [address] [id number] [place] [address] October, [facility] [place] [facility] [address] [id number], [place] [address] October, [facility] [place] [facility] [address] [id number] [place] [address] Sep, [facility] [place] [facility] [address] [id number] [place] [address] Sep, [facility] [place] [facility] [address] [id number] [place] [address]267 Sep, [facility] [place] [facility] [address] [id number], [place] [address] Sep, [facility] [place] [facility] [address] [id number] [place] [address] Sep, [facility] [place] [facility] [address] [id number] [place] [address] Sep, [facility] [place] [facility] [address] [id number] [place] [address] Sep, [facility] [place] [facility] [address] [id number] [place] [address] Sep, [facility] [place] [facility] [address] [id number] [place] [address] Sep, [facility] [place] [facility] [address] [id number] [place] [address] Sep, [facility] [place] [facility] [address] [id number] [place] [address] Sep, [facility] [place] [facility] [address] [id number] [place] [address] Sep, [facility] [place] [facility] [address] [id number] [place] [address] Sep, [facility] [place] [facility] [address] [id number] [place] [address] Sep, [facility] [place] [facility] [address] [id number] [place] [address]- [address] Sep, [facility] [place] [facility] [address] [id number] [place] [address] Sep, [facility] [place] [facility] [address] [id number] [place] [address] Sep, [facility] [place] [facility] [address] [id number] [place] [address]- [address] Sep, [facility] [place] [facility] [address] [id number] [place] [address] Sep, [facility] [place] [facility] [address] [id number] [place] [address]- 47[address] Aug, [facility] [place] [facility] [address] [id number] [place] [address]479 Aug, [facility] [place] [facility] [address] [id number] [place] [address]- [address] Aug, [facility] [place] [facility] [address] [id number] [place] [address]- [address] Aug, [facility] [place] [facility] [address] [id number] [place] [address] Jun, [facility] [place] [facility] [address] [id number] [place] [address] Jun, [facility] [place] [facility] [address] [id number] [place] [address] Mar, [facility] [place] [facility] [address] [id number] [place] [address] 15 Mar, 2013 [facility] [place] [facility] [address] [id number] [place] [address] Nov, [facility] [place] [facility] [address] [id number] [place] [address] Sep, [facility] [place] [facility] [address] [id number] [place] [address] Jun, [facility] [place] [facility] [address] [id number] [place] [address] Jun, [facility] [place] [facility] [address] [id number] [place] [address] Apr, [facility] [place] [facility] [address] [id number] [place] [address]- [address] Apr, [facility] [place] [facility] [address] [id number] [place] [address]- [address] Apr, [facility] [place] [facility] [address] [id number] [place] [address] Mar, [facility] [address] [facility] [id number] [place] [address] 14 Feb, 2010 IMMUNIZATIONS No Known Immunizations SOCIAL HISTORY Never Assessed REASON FOR VISIT Education Request PLAN OF CARE VITAL SIGNS MEDICATIONS Unknown [...] Hospitalization History past surgery Hospitalization History [facility] 03[facility]2016 Hospitalization History [facility] x 30 days
--- OUTSIDE RECORDS SUMMARY | 2018-02-02 17:40 | XMS REPORT ---
Author Author CHRISTO ADELA [facility] Address [address] [place] [address] Care Team Providers Care Block Feeder Name Role Phone ADELA VILLAFUERTE Unavailable PROBLEMS Type Condition ICD9-CM Code GQW33-TM Code Onset Dates Condition Status SNOMED Code Problem Schizoaffective disorder, bipolar type F25.0 Active 27817085 Problem Vaginal burning N94.9 Active 651125452 Problem Other chronic pain G89.29 Active 19267061 Problem Type 2 diabetes mellitus without complications E11.9 Active 107554235 Problem long-term 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 Active 159090018 Problem Hand eczema L30.9 Active 896776635 Problem Bulging of cervical intervertebral disc M50.20 Active 438418928 Problem Type 2 diabetes mellitus without complication, without long-term current use of insulin E11.9 Active 130303442 Problem Gastroesophageal reflux disease, esophagitis presence not specified K21.9 Active 405262562 Problem Cervical dysplasia N87.9 Active 94571089 Problem Hypothyroidism E03.9 Active 28061786 Problem Hypertriglyceridemia E78.1 Active 574652623 Problem Prediabetes R73.09 Active 7189129 Problem Bulge of cervical disc without myelopathy M50.20 Active 040683333 Problem Mild intermittent asthma, uncomplicated J45.20 Active 830909723 Problem Lumbar facet arthropathy M46.96 Active 033111886 Problem Generalized anxiety disorder F41.1 Active 52078554 ALLERGIES No Information ENCOUNTERS Encounter Location Date Diagnosis [facility] [address] [address] 3[address] Feb, [facility] [id number] [place] [address] 67290- 9364 Dec, [facility] [address] [address] 8274 Dec, [place] [id number] [place] [address] 01301- 8367 Dec, Type 2 diabetes mellitus without complications E11.9 ; superintendent 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 and BMI 40.0-44.9, adult Z68.41 [place] [address] [place] [id number] [place] [address] 72491- 1040 Dec, Type 2 diabetes mellitus without complication, without long- term current use of insulin E11.9 [place] [address] [place] [id number] [place] [address] 01687- 7530 Dec, [place] [address] [place] [id number] [place] [address] 27676- 2021 Dec, Type 2 diabetes mellitus without complication, without long- term current use of insulin E11.9 [place] [address] [place] [id number] [place] [address] 84423- 8525 Dec, Type 2 diabetes mellitus without complication, without long- term current use of insulin E11.9 ; Gastroesophageal reflux disease, esophagitis presence not specified K21.9 and BMI 40.0-44.9, adult Z68.41 [place] [address] [place] [id number] [place] [address] 20909- 8218 Dec, [facility] [id number] [place] [address] [id number] October, Dental examination Z01.20 [place] [address] [place] [id number] [place] [address] 90346- 5409 Sep, [place] [address] [place] [id number] [place] [address] 41020- 8075 Sep, Hypertriglyceridemia E78.1 [place] [address] [id number] [place] [address] 37551- 6329 Sep, Hypothyroidism E03.9 ; Prediabetes R73.09 ; Mild intermittent asthma, uncomplicated J45.20 ; Bulge of cervical disc without myelopathy M50.20 ; Other chronic pain G89.29 ; Hand eczema L30.9 ; Right anterior knee pain M25.561 ; Hypertriglyceridemia E78.1 and BMI 40.0-44.9, adult Z68.41 [place] [address] 27655- 1637 Sep, [place] [address] 61750- 4264 Sep, [place] [address] 54919- 9027 Jul, [place] [address] 31579- 0355 May, Acute non-recurrent maxillary sinusitis J01.00 [facility] [place] [address] 99266 -9862 Mar, Other viral agents as the cause of diseases classified elsewhere B97.89 and Acute upper respiratory infection, unspecified J06.9 [place] [address] 60524- 8942 Mar, [place] [address] 91212- 8303 Mar, Neck pain M54.2 [place] [address] 15990- 3028 Feb, Bulge of cervical disc without myelopathy M50.20 [place] [address] 04435- 5289 Feb, Neck pain M54.2 [place] [address] 22651- 0260 Feb, [place] [address] 89866- 6111 Feb, Bulge of cervical disc without myelopathy M50.20 ; Hypertriglyceridemia E78.1 ; Hand eczema L30.9 and Hypothyroidism E03.9 [place] [address] 41767- 0154 Jan, [facility] [id number] [place] [address] [id number] October, 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 dental examination Z01.20 [place] [address] 43889- 3132 Sep, Generalized abdominal pain R10.[address] 75342- 5464 Sep, Schizoaffective disorder, bipolar type F25.0 and Generalized anxiety disorder F41.1 [facility] [address] [place] [address] 32087 -1213 Sep, [facility] [address] [place] [address] 88210 -7289 Sep, Vaginal burning N94.9 and Vaginal mitzi B37.3 [facility] [address] 05691 -1173 Sep, Gastroenteritis K52.9 [facility] [address] [place] [address] 31461 -5083 Sep, Thrush B37.0 [facility] [address] [place] [address] 14812 -9181 Sep, Pharyngitis due to other organism J02.[address] 99692- 0893 Sep, [facility] [address] [place] [address] 96216 -8693 Aug, Cervicalgia M54.[address] 63829- 3494 09 Aug, 2016 Hypothyroidism E03.9 ; Dry skin L85.3 ; Plantar fasciitis, bilateral M72.2 and Other chronic pain G89.29 [facility] [address] [place] [address] 27618 -8432 07 Mar, 2017 Abrasion T14.8 [facility] [address] [place] [address] [id number] Aug, 2017 Dental examination Z01.20 [facility] [address] 72035 -2995 Aug, Excessive cerumen in right ear canal H61.21 ; Impacted cerumen of both ears 380.4 and Bronchitis J40 [facility] [address] 41291 -7787 Jul, Bilateral impacted cerumen H61.23 and Acute non-recurrent frontal sinusitis J01.10 [place] [address] 13967- 5716 May, Schizoaffective disorder, bipolar type F25.0 and Generalized anxiety disorder F41.[address] 07929- 5692 May, [place] [address] 49219- 9563 May, Cervicalgia M54.2 and Hypertriglyceridemia E78.1 [place] [address] 65311- 0936 May, [place] [address] 18747- 8096 May, STD exposure Z20.2 and Well woman exam Z01.419 [place] [address] 23023- 8577 May, [place] [address] 91693- 7129 Mar, [place] [address] 88530- 2935 Dec, Pain in left knee M25.562 [place] [address] 35890- 6128 Dec, [place] [address] [address]- 7723 Nov, [facility] [address], [place] [address]- 4681 October, [facility] [address] [address]- 1998 Aug, [facility] [address] [id number] [place] [address] 71991- 9946 Jul, [facility] [id number] [place] [address] 94974- 0802 Jul, [facility] [address] [id number] [place] [address] 77502- 8937 Jul, Plantar fasciitis M72.2 and 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 [facility] [address] [place] [address] 38478- 0809 Jul, [facility] [address] [address]- 3801 Jun, Plantar fasciitis M72.2 and Physical exam Z00.00 [facility] [address] [address]- 4483 Jun, [facility] [address] [address]- 9341 Jun, [facility] [address], [place] [address]- 1609 Jun, [facility] [address] [address]- 9379 May, [facility] [address] [address] [id number] [address]- 8558 May, Hypertriglyceridemia E78.1 [facility] [address], [place] [address]- 6549 May, Hypothyroidism E03.9 ; Prediabetes R73.09 and Hypertriglyceridemia E78.1 [facility] [address] [place] [id number] [place] [address] 13478- 0321 May, [facility] [address] [place] [id number] [place] [address] 75787- 8336 May, [facility] [address] [place] [id number] [place] [address] 67492- 1384 May, Hypothyroidism E03.9 ; Prediabetes R73.09 and Hypertriglyceridemia E78.1 [facility] [address] [place] [id number] [place] [address] 35384- 7403 Apr, Schizoaffective disorder, bipolar type F25.0 [place] [address] 60942- 4735 Mar, [facility] [address] [place] [id number] [place] [address] 57943- 3297 Mar, [facility] [address] [place] [address] [id number] [place] [address] 91678- 3406 Mar, [facility] [address] [address] [id number] [place] [address] 73708- 2995 Feb, [facility] [address] [id number] [place] [address] 83180- 0727 24 Feb, 2015 [place] [address] [place] [id number] [place] [address] 29891- 3242 16 Feb, 2015 [facility] [address] [place] [id number] [place] [address] 82014- 5314 Feb, Screen for STD (sexually transmitted disease) V74.5 ; Counseling on other sexually transmitted diseases V65.45 ; Back pain 724.5 ; Contact with or exposure to venereal diseases V01.6 and Pelvic pain in female 625.9 [facility] [address] [place] [address] 96071- 4739 15 Feb, 2015 Schizoaffective disorder, unspecified 295.70 and Anxiety state, unspecified 300.00 [place] [address] [id number] [address]- 4283 14 Feb, 2015 [facility] [address] [address]- 7861 10 Feb, 2015 [facility] [address] [facility] [id number] [address]- 2548 03 Feb, 2015 Impacted cerumen of both ears 380.4 and Mild intermittent asthma 493.90 [facility] [address] [id number] [address]- 3449 Feb, [facility] [address] [facility] [id number] [place] [address]- 7490 Jan, [facility] [address] [facility] [id number] [address]- 4733 Jan, [facility] [address] [place] [id number] [place] [address] 74596- 8624 Jan, [facility] [address] [address]- 1652 Jan, [facility] [address], [place] [address]- 5756 Jan, [facility] [address] [address]- 4492 Jan, [facility] [address] [address]- 3377 Jan, [facility] [address] [facility] [id number] [address]- 8658 Jan, [facility] [address] [facility] [id number] [address]- 3867 Jan, [facility] [address] [facility] [id number] [address]- 9283 Jan, [facility] [address] [place] [id number] [address]- 9113 Jan, [facility] [place] [facility] [address] [address]- 8634 Dec, Schizoaffective disorder, unspecified 295.70 [facility] [address] [address]- 7849 Dec, 2014 [facility] [address] [address]- 2532 Dec, 2014 [facility] [address] [id number] [place] [address] 41014- 8224 Dec, [facility] [address] [address]- 8509 Dec, [facility] [id number] [place] [address] 07725- 0205 Dec, [facility] [address] [place] [address] [id number] Dec, Dental examination V72.2 [facility] [address] [address]- 3012 Dec, Schizoaffective disorder, unspecified 295.70 ; Persistent disorder of initiating 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.42 and Anxiety state, unspecified 300.00 [facility] [address] [address]- 9059 Dec, [facility] [address] [address]- 4924 Nov, High risk medication use V58.69 [facility] [address] [address]- 9247 Nov, [facility] [address] [address]- 7620 Nov, [facility] [address] [address]- 6227 Nov, High risk medication use V58.69 [facility] [address] [address]- 3738 Nov, [facility] [address] [address]- 8882 Nov, [facility] [address] [id number] [place] [address] 39417- 0290 Nov, [facility] [address] [address] [id number] [place] [address] 37694- 9708 Nov, Hypothyroidism 244.9 ; Hypertriglyceridemia 272.1 and Prediabetes 790.29 [facility] [address] [id number] [place] [address] 66290- 0432 Nov, [facility] [address] [id number] [place] [address] 31907- 5096 Nov, [facility] [address] [id number] [place] [address] 51737- 2175 Nov, Bulge of cervical disc without myelopathy 722.0 ; Lumbar facet arthropathy 721.3 ; Family history of stroke V17.1 ; Hyperthyroidism 242.90 and 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 long-term current use of medication V58.69 [facility] [address] [address]- 5643 Nov, [facility] [id number] [place] [address] 33881- 0919 October, [facility] [address] [address]- 6048 October, [facility] [address] [address]- 0458 October, [facility] [address], [place] [address]- 4942 October, [facility] [address] [place] [id number] [place] [address] 33225- 6939 October, [facility] [address] [address]- 3608 October, [facility] [id number] [address] 1617 October, Schizoaffective disorder, unspecified 295.70 and Persistent disorder of initiating 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.42 [facility] [address] [id number] [place] [address] 410930- 3759 October, Schizoaffective disorder, unspecified 295.70 [facility] [id number] [place] [address] 861955- 8311 October, [facility] [address] [id number] [place] [address] 522116- 8401 October, [facility] [id number] [place] [address] 035801- 6176 October, [facility] [id number] [place] [address] 30962- 3126 Sep, Lumbago of lumbar region with sciatica 724.2 and Neck pain 723.1 [facility] [address] [place] [id number] [place] [address] 99998- 6357 Sep, [facility] [address] [id number] [place] [address] 02019- 8259 Sep, [facility] [address] [place] [id number] [place] [address] 75379- 6778 Aug, [facility] [address] [address]- 5127 Aug, [facility] [address], [place] [address]- 3206 Aug, [facility] [address], [place] [address]- 0134 Aug, [facility] [address] [place] [id number] [place] [address] 309315- 1548 Aug, [facility] [address] [address] 6928 Aug, [facility] [address] [place] [id number] [place] [address], [place] [address]- 9448 20 Aug, 2014 [facility] [place] [facility] [address] [id number] [place] [address]- 5003 20 Aug, 2014 [facility] [place] [facility] [address] [id number] [place] [address]- 2396 19 Aug, 2014 [facility] [place] [facility] [address] [id number] [place] [address]- 2087 19 Aug, 2014 [facility] [place] [facility] [address] [id number] [place] [address]- 4382 18 Aug, 2014 [facility] [place] [facility] [address] [id number] [place] [address]- 1895 18 Aug, 2014 [facility] [place] [facility] [address] [id number] [place] [address]- 7718 18 Aug, 2014 [facility] [place] [facility] [address] [id number] [place] [address]- 3352 18 Aug, 2014 [facility] [place] [facility] [address] [id number] [place] [address]- 9993 16 Aug, 2014 [facility] [place] [facility] [address] [id number] [place] [address]- 1872 12 Aug, 2014 [facility] [place] [facility] [address] [id number] [place] [address]- 0874 12 Aug, 2014 [facility] [place] [facility] [address] [id number] [place] [address]- 6822 12 Aug, 2014 [facility] [place] [facility] [address] [id number] [place] [address]- 6796 Aug, 2014 [facility] [place] [facility] [address] [id number] [place] [address]- 4111 09 Aug, 2014 [facility] [place] [facility] [address] [id number] [place] [address]- 2291 09 Aug, 2014 [facility] [place] [facility] [address] [id number] [place] [address]- 7943 06 Aug, 2014 [facility] [place] [facility] [address] [id number] [place] [address]- 9960 05 Aug, 2014 [facility] [place] [facility] [address] [id number] [place] [address]- 0521 Aug, 2014 [facility] [place] [facility] [address] [id number] [place] [address]- 8938 Aug, 2014 [facility] [place] [facility] [address] [id number] [place] [address]- 6398 Aug, 2014 [facility] [place] [facility] [address] [id number] [place] [address]- 6860 Aug, 2014 [facility] [place] [facility] [address] [id number] [place] [address]- 7389 Jul, 2014 [facility] [place] [facility] [address] [facility] [id number] [place] [address]- 3204 Jul, 2014 [facility] [place] [facility] [address] [facility] [id number] [place] [address]- 8433 26 Jul, 2014 [facility] [place] [facility] [address] [id number] [place] [address]- 9320 20 Jul, 2014 [facility] [place] [facility] [address] [facility] [id number] [place] [address]- 1958 20 Jul, 2014 [facility] [place] [facility] [address] [facility] [id number] [place] [address]- 1908 17 Jul, 2014 [facility] [place] [facility] [address] [id number] [place] [address]- 3914 17 Jul, 2014 [facility] [place] [facility] [address] [id number] [place] [address]- 4655 16 Jul, 2014 [facility] [place] [facility] [address] [id number] [place] [address] 16 Jul, 2014 [facility] [place] [facility] [address] [facility] [id number] [place] [address] 13 Jul, 2014 [facility] [place] [facility] [address] [facility] [id number] [place] [address] Jun, [facility] [address] [id number] [place] [address] Jun, [facility] [place] [facility] [address] [id number] [place] [address] Jun, [facility] [place] [facility] [address] [id number] [place] [address] Jun, [facility] [place] [facility] [address] [id number] [place] [address] Jun, [facility] [place] [facility] [address] [id number] [place] [address] Jun, [facility] [place] [facility] [address] [id number] [place] [address] Jun, [facility] [address] [id number] [place] [address] May, [facility] [place] [facility] [address] [id number] [place] [address] May, [facility] [place] [facility] [address] [id number] [place] [address] May, [facility] [place] [facility] [address] [facility] [id number] [place] [address] May, [facility] [place] [facility] [address] [id number] [place] [address] May, [facility] [place] [facility] [address] [id number] [place] [address] May, [facility] [place] [facility] [address] [id number] [place] [address] May, [facility] [place] [facility] [address] [id number] [place] [address] May, [facility] [place] [facility] [address] [id number] [place] [address] May, [facility] [place] [facility] [address] [id number] [place] [address] May, [facility] [place] [facility] [address] [id number] [place] [address] Apr, [facility] [place] [facility] [address] [id number] [place] [address] Apr, [facility] [place] [facility] [address] [id number] [place] [address] Apr, [facility] [place] [facility] [address] [id number] [place] [address] Apr, [facility] [place] [facility] [address] [id number] [place] [address]- 2007 Apr, [facility] [place] [facility] [address] [id number] [place] [address] Apr, [facility] [place] [facility] [address] [id number] [place] [address] Apr, [facility] [place] [facility] [address] [id number] [place] [address]- [address] Apr, [facility] [place] [facility] [address] [id number] [place] [address] Apr, [facility] [place] [facility] [address] [id number] [place] [address] Mar, [facility] [place] [facility] [address] [id number] [place] [address] Mar, [facility] [place] [facility] [address] [id number] [place] [address] Mar, [facility] [place] [facility] [address] [id number] [place] [address] Mar, [facility] [place] [facility] [address] [id number] [place] [address]- [address] Mar, [facility] [place] [facility] [address] [id number] [place] [address] Mar, [facility] [place] [facility] [address] [id number] [place] [address] Mar, [facility] [place] [facility] [address] [id number] [place] [address] Mar, [facility] [place] [facility] [address] [id number] [place] [address] Mar, [facility] [place] [facility] [address] [id number] [place] [address] Mar, [facility] [place] [facility] [address] [id number] [place] [address] Feb, [facility] [place] [facility] [address] [id number] [place] [address] Feb, [facility] [place] [facility] [address] [id number] [place] [address] Feb, [facility] [place] [facility] [address] [id number] [place] [address] Feb, [facility] [place] [facility] [address] [id number] [place] [address] Feb, [facility] [place] [facility] [address] [id number] [place] [address] Jan, [facility] [place] [facility] [address] [id number] [place] [address] Jan, [facility] [place] [facility] [address] [id number] [place] [address] Jan, [facility] [place] [facility] [address] [id number] [place] [address] Jan, [facility] [place] [facility] [address] [id number] [place] [address] Jan, [facility] [place] [facility] [address] [id number] [place] [address] Jan, [facility] [place] [facility] [address] [id number] [place] [address] Jan, [facility] [place] [facility] [address] [id number] [place] [address] Jan, [facility] [place] [facility] [address] [id number] [place] [address] Jan, [facility] [place] [facility] [address] [id number] [place] [address] Dec, [facility] [place] [facility] [address] [id number] [place] [address] Dec, [facility] [place] [facility] [address] [id number] [place] [address] Dec, [facility] [place] [facility] [address] [id number] [place] [address] Dec, [facility] [place] [facility] [address] [id number] [place] [address] 47[address] Dec, [facility] [place] [facility] [address] [id number] [place] [address] Dec, [facility] [place] [facility] [address] [id number] [place] [address] Dec, [facility] [place] [facility] [address] [id number] [place] [address] Dec, [facility] [place] [facility] [address] [id number] [place] [address] Nov, [facility] [place] [facility] [address] [id number] [place] [address] Nov, [facility] [place] [facility] [address] [id number] [place] [address] Nov, [facility] [place] [facility] [address] [id number] [place] [address] Nov, [facility] [place] [facility] [address] [id number] [place] [address] Nov, [facility] [place] [facility] [address] [id number] [place] [address] Nov, [facility] [place] [facility] [address] [id number] [place] [address] Nov, [facility] [place] [facility] [address] [id number] [place] [address]- [address] Nov, [facility] [place] [facility] [address] [id number] [place] [address] Nov, [facility] [place] [facility] [address] [id number] [place] [address] Nov, [facility] [place] [facility] [address] [id number] [place] [address] 133[address] Nov, [facility] [place] [facility] [address] [id number] [place] [address] Nov, [facility] [place] [facility] [address] [id number] [place] [address] 227[address] October, [facility] [place] [facility] [address] [id number] [place] [address] October, [facility] [place] [facility] [address] [id number] [place] [address] October, [facility] [place] [facility] [address] [id number] [place] [address] 9[address] October, [facility] [place] [facility] [address] [id number] [address] October, [facility] [place] [facility] [address] [id number] [place] [address] Sep, [facility] [place] [facility] [address] [id number] [place] [address] Sep, [facility] [place] [facility] [address] [id number] [place] [address] Sep, [facility] [place] [facility] [address] [id number], [place] [address] Sep, [facility] [place] [facility] [address] [id number] [place] [address] 34[address] Sep, [facility] [place] [facility] [address] [id number] [place] [address] 8838 Sep, [facility] [place] [facility] [address] [id number] [place] [address]- [address] Sep, [facility] [place] [facility] [address] [id number] [place] [address]- 68[address] Sep, [facility] [place] [facility] [address] [id number] [place] [address]- [address] Sep, [facility] [place] [facility] [address] [id number] [place] [address] 1310 Sep, [facility] [place] [facility] [address] [id number] [place] [address]- [address] Sep, [facility] [place] [facility] [address] [id number] [place] [address] 8696 Sep, [facility] [place] [facility] [address] [id number] [place] [address]- 1702 Sep, [facility] [place] [facility] [address] [id number] [place] [address]- 3513 Sep, [facility] [place] [facility] [address] [id number] [place] [address]- 0666 Sep, [facility] [place] [facility] [address] [id number] [place] [address]- 7822 Sep, [facility] [place] [facility] [address] [id number] [place] [address]- [address] Sep, [facility] [place] [facility] [address] [id number] [place] [address]- [address] Sep, [facility] [place] [facility] [address] [id number] [place] [address]- 78[address] Sep, [facility] [place] [facility] [address] [id number] [place] [address] Aug, [facility] [place] [facility] [address] [id number] [place] [address]014 Aug, [facility] [place] [facility] [address] [id number] [place] [address] Aug, [facility] [place] [facility] [address] [id number] [place] [address]- [address] Aug, [facility] [place] [facility] [address] [id number] [place] [address]- 8539 Jun, [facility] [place] [facility] [address] [id number] [place] [address]- 8[address] Jun, [facility] [place] [facility] [address] [id number] [place] [address]- [address] Mar, [facility] [place] [facility] [address] [id number] [place] [address]- [address] 15 Mar, 2013 [facility] [place] [facility] [address] [id number] [place] [address]- 7899 Nov, [facility] [place] [facility] [address] [id number] [place] [address]- 1297 Sep, [facility] [place] [facility] [address] [id number] [place] [address]- 8229 Jun, [facility] [place] [facility] [address] [id number] [place] [address]- 5961 Jun, [facility] [place] [facility] [address] [id number] [place] [address]- 1844 Apr, [facility] [place] [facility] [address] [id number] [place] [address]- 1583 Apr, [facility] [place] [facility] [address] [id number] [place] [address]- 6048 Apr, [facility] [place] [facility] [address] [id number] [place] [address] Mar, [facility] [address] [facility] [id number] [place] [address] 14 Feb, 2010 IMMUNIZATIONS No Known Immunizations SOCIAL HISTORY Never Assessed REASON FOR VISIT Rx from lab results PLAN OF CARE VITAL SIGNS MEDICATIONS Medication Instructions Dosage Frequency Start Date End Date Duration Status Atorvastatin Calcium 40 mg Orally Once a day 1 tablet 24h Sep, 30 day(s) Active RESULTS No Results PROCEDURES No Known [...]
--- OUTSIDE RECORDS SUMMARY | 2018-02-02 17:41 | XMS REPORT ---
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 Name Role Phone ADELA VILLAFUERTE Unavailable PROBLEMS Type Condition ICD9-CM Code XXK26-PP Code Onset Dates Condition Status SNOMED Code Problem Schizoaffective disorder, bipolar type F25.0 Active 46057028 Problem Vaginal burning N94.9 Active 309979433 Problem Other chronic pain G89.29 Active 38782447 Problem Type 2 diabetes mellitus without complications E11.9 Active 983877301 Problem snf 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 Active 198618567 Problem Hand eczema L30.9 Active 551414156 Problem Bulging of cervical intervertebral disc M50.20 Active 895356423 Problem Type 2 diabetes mellitus without complication, without long-term current use of insulin E11.9 Active 517247869 Problem Gastroesophageal reflux disease, esophagitis presence not specified K21.9 Active 155780491 Problem Cervical dysplasia N87.9 Active 52807927 Problem Hypothyroidism E03.9 Active 24059621 Problem Hypertriglyceridemia E78.1 Active 097634184 Problem Prediabetes R73.09 Active 9406991 Problem Bulge of cervical disc without myelopathy M50.20 Active 572622129 Problem Mild intermittent asthma, uncomplicated J45.20 Active 894070745 Problem Lumbar facet arthropathy M46.96 Active 258995619 Problem Generalized anxiety disorder F41.1 Active 83101130 ALLERGIES No Information ENCOUNTERS Encounter Location Date Diagnosis [facility] [id number] [address] Feb, [facility] [id number] [place] [address] 50981- 9171 Dec, Type 2 diabetes mellitus without complications E11.9 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 [facility] [address] [address] Dec, Type 2 diabetes mellitus without complication, without long- term current use of insulin E11.9 [facility] [facility] [id number] [place] [address] 00812- 9830 Dec, [facility] [id number] [place] [address] 47043- 9393 Dec, Type 2 diabetes mellitus without complication, without long- term current use of insulin E11.9 [facility] [facility] [id number] [place] [address] 09289- 6873 Dec, Type 2 diabetes mellitus without complication, without long- term current use of insulin E11.9 and Gastroesophageal reflux disease, esophagitis presence not specified K21.9 [place] [id number] [place] [address] 33971- 2954 Dec, [facility] [address] [id number] October, Dental examination Z01.20 [place] [id number] [place] [address] 68931- 3626 Sep, [place] [facility] [id number] [place] [address] 03340- 7337 Sep, Hypertriglyceridemia E78.1 [facility] [facility] [id number] [place] [address] 25115- 0774 Sep, Hypothyroidism E03.9 ; Prediabetes R73.09 ; Mild intermittent asthma, uncomplicated J45.20 ; Bulge of cervical disc without myelopathy M50.20 ; Other chronic pain G89.29 ; Hand eczema L30.9 ; Right anterior knee pain M25.561 ; Hypertriglyceridemia E78.1 and BMI 40.0-44.9, adult Z68.41 [place] [address] [place] [address] 70706- 8367 Sep, [facility] [facility] [id number] [place] [address] 46033- 7738 Sep, [place] [address] [address] 9922 Jul, [facility] [id number] [place] [address] 03798- 3456 May, Acute non-recurrent maxillary sinusitis J01.[address] [facility] [id number] [place] [address] 53756 -4665 Mar, Other viral agents as the cause of diseases classified elsewhere B97.89 and Acute upper respiratory infection, unspecified J06.9 [facility] [id number] [place] [address] 99388- 7285 Mar, [place] [id number] [place] [address] 40673- 0529 Mar, Neck pain M54.2 [place] [facility] [id number] [place] [address] 36721- 6893 Feb, Bulge of cervical disc without myelopathy M50.20 [facility] [id number] [place] [address] 41438- 8399 Feb, Neck pain M54.2 [place] [address] 43731- 3171 Feb, [facility] [id number] [place] [address] 97705- 9867 Feb, Bulge of cervical disc without myelopathy M50.20 ; Hypertriglyceridemia E78.1 ; Hand eczema L30.9 and Hypothyroidism E03.9 [facility] [id number] [place] [address] 17067- 6286 Jan, [facility] [address] [id number] October, 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 dental examination Z01.20 [facility] [id number] [place] [address] 38007- 1003 Sep, Generalized abdominal pain R10.84 [place] [address] 88971- 3457 Sep, Schizoaffective disorder, bipolar type F25.0 and Generalized anxiety disorder F41.1 [facility] [address] [place] [address] 50686 -2225 Sep, [facility] [address] [place] [address] 19262 -4890 Sep, Vaginal burning N94.9 and Vaginal mitzi B37.3 [facility] [address] [place] [address] 22479 -3464 Sep, Gastroenteritis K52.9 [facility] [address] [place] [address] 02686 -9030 Sep, Thrush B37.0 [facility] [address] [place] [address] 20692 -5206 Sep, Pharyngitis due to other organism J02.[address] 71692- 3977 Sep, [facility] [address] 76869 -5575 Aug, Cervicalgia M54.[address] 60411- 7418 Aug, Hypothyroidism E03.9 ; Dry skin L85.3 ; Plantar fasciitis, bilateral M72.2 and Other chronic pain G89.29 [facility] [address] [place] [address] 70753 -2431 Aug, Abrasion T14.8 [facility] [address] [id number] Aug, Dental examination Z01.20 [facility] [address] [place] [address] 31432 -7320 Aug, Excessive cerumen in right ear canal H61.21 ; Impacted cerumen of both ears 380.4 and Bronchitis J40 [facility] [id number] [place] [address] 17359 -3880 Jul, Bilateral impacted cerumen H61.23 and Acute non-recurrent frontal sinusitis J01.10 [facility] [id number] [place] [address] 75279- 2910 May, Schizoaffective disorder, bipolar type F25.0 and Generalized anxiety disorder F41.1 [facility] [address] 23835- 9693 May, [facility] [address] 83621- 0484 May, Cervicalgia M54.2 and Hypertriglyceridemia E78.1 [facility] [address] 97904- 7536 May, [facility] [address] 33931- 9394 May, STD exposure Z20.2 and Well woman exam Z01.419 [place] [address] 27717- 7703 May, [facility] [id number] [place] [address] 40676- 8253 Mar, [facility] [id number] [place] [address] 83160- 9714 Dec, Pain in left knee M25.562 [facility] [id number] [place] [address] 01150- 8683 Dec, [facility] [address] 89626- 0016 Nov, [facility] [id number] [place] [address] 03383- 2681 October, [facility] [address] 32150- 5974 Aug, [facility] [address], [place] [address]- 0204 Jul, [facility] [id number] [place] [address] 13820- 7659 Jul, [facility] [id number] [place] [address] 42194- 3604 Jul, Plantar fasciitis M72.2 and 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 [facility] [id number] [place] [address] 91022- 2605 Jul, [facility] [id number] [place] [address] 36192- 2452 Jun, Plantar fasciitis M72.2 and Physical exam Z00.00 [facility] [id number] [place] [address] 67560- 8363 Jun, [facility] [id number] [place] [address] 07378- 1159 Jun, [facility] [id number] [place] [address] 87035- 3585 Jun, [facility] [id number] [place] [address] 35015- 1778 May, [facility] [id number] [place] [address] 36666- 9261 May, Hypertriglyceridemia E78.1 [facility] [id number] [place] [address] 78707- 9246 16 May, 2015 Hypothyroidism E03.9 ; Prediabetes R73.09 and Hypertriglyceridemia E78.1 [facility] [id number] [place] [address] 92796- 4126 May, [facility] [id number] [place] [address] 34877- 8569 May, [facility] [id number] [place] [address] 29722- 0015 May, Hypothyroidism E03.9 ; Prediabetes R73.09 and Hypertriglyceridemia E78.1 [place] [id number] [place] [address] 83052- 0093 Apr, Schizoaffective disorder, bipolar type F25.0 [facility] [id number] [place] [address] 22948- 3476 Mar, [facility] [address] 20040- 0710 Mar, [facility] [id number] [place] [address] 23669- 7346 Mar, [facility] [id number] [place] [address] 42236- 8324 Feb, [facility] [id number] [place] [address] 77108- 1543 Feb, [facility] [id number] [place] [address] 56639- 3960 Feb, [facility] [id number] [place] [address] 28109- 6822 Feb, Screen for STD (sexually transmitted disease) V74.5 ; Counseling on other sexually transmitted diseases V65.45 ; Back pain 724.5 ; Contact with or exposure to venereal diseases V01.6 and Pelvic pain in female 625.9 [facility] [id number] [place] [address] 09821- 3565 Feb, Schizoaffective disorder, unspecified 295.70 and Anxiety state, unspecified 300.00 [place] [id number] [place] [address] 75118- 2568 14 Feb, 2015 [facility] [id number] [place] [address] 83075- 7995 10 Feb, 2015 [facility] [id number] [place] [address] 12338- 1407 03 Feb, 2015 Impacted cerumen of both ears 380.4 and Mild intermittent asthma 493.90 [facility] [address] [address]- 3699 Feb, [facility] [id number] [place] [address] 22131- 4880 Jan, [facility] [id number] [address]- 2761 Jan, [facility] [id number] [place] [address] 59336- 5348 Jan, [facility] [id number] [place] [address] 36748- 3095 Jan, [facility] [id number] [place] [address] 00718- 2752 Jan, [facility] [id number] [place] [address] 88206- 8756 Jan, [facility] [id number] [address]- 6250 Jan, [facility] [id number] [place] [address] 94313- 6032 Jan, [facility] [address], [place] [address]- 1059 Jan, [facility] [address] [address]- 6501 Jan, [facility] [address], [place] [address]- 2095 Jan, [facility] [address], [place] [address]- 5271 Dec, Schizoaffective disorder, unspecified 295.70 [facility] [address], [place] [address]- 9510 Dec, [facility] [address], [place] [address]- 5954 Dec, [facility] [address], [place] [address]- 0131 Dec, [facility] [address] 3843 Dec, [facility] [address], [place] [address]- 4911 Dec, [facility] [address] [id number] Dec, Dental examination V72.2 [facility] [address] 9959 Dec, Schizoaffective disorder, unspecified 295.70 ; Persistent disorder of initiating 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.42 and Anxiety state, unspecified 300.00 [facility] [address]- 0717 Dec, [facility] [address], [place] [address]- 4382 Nov, High risk medication use V58.69 [facility] [address]- 9048 Nov, [facility] [address], [place] [address]- 3328 Nov, [facility] [address]- 7486 Nov, High risk medication use V58.69 [facility] [address], [place] [address]- 8199 Nov, [facility] [address] 3655 Nov, [facility] [address]- 2096 Nov, [facility] [address]- 4740 Nov, Hypothyroidism 244.9 ; Hypertriglyceridemia 272.1 and Prediabetes 790.29 [facility] [id number] [place] [address] 19319- 6035 Nov, [facility] [id number] [place] [address] 11319- 0580 Nov, [facility] [address] 26754- 6024 Nov, Bulge of cervical disc without myelopathy 722.0 ; Lumbar facet arthropathy 721.3 ; Family history of stroke V17.1 ; Hyperthyroidism 242.90 and 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 long-term current use of medication V58.69 [facility] [id number] [place] [address] 71220- 1430 Nov, [facility] [id number] [place] [address] 73057- 1652 October, [facility] [address] 65202- 6659 October, [facility] [id number] [place] [address] 89674- 2008 October, [facility] [id number] [place] [address] 11101- 0353 October, [facility] [id number] [place] [address] 59359- 2352 October, [facility] [id number] [place] [address] 17592- 2907 October, [facility] [id number] [place] [address] 47517- 6638 October, Schizoaffective disorder, unspecified 295.70 and Persistent disorder of initiating 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.42 [facility] [id number] [place] [address] 99020- 2310 October, Schizoaffective disorder, unspecified 295.70 [facility] [address] [place] [address]- 3001 October, [facility] [address] [facility] [id number] [place] [address]- 6708 October, [facility] [place] [facility] [address] [facility] [id number] [place] [address]- 3652 October, [facility] [address] [facility] [id number] [place] [address]- 2885 Sep, Lumbago of lumbar region with sciatica 724.2 and Neck pain 723.1 [facility] [place] [facility] [address] [id number] [place] [address]- 6199 Sep, [facility] [place] [facility] [address] [facility] [id number] [place] [address]- 7535 Sep, [facility] [place] [facility] [id number] [place] [address]- 1131 Aug, [facility] [place] [facility] [address] [facility] [id number], [place] [address]- 7366 Aug, [facility] [place] [facility] [id number] [place] [address]- 2112 Aug, [facility] [place] [facility] [id number] [place] [address]- 8920 Aug, [facility] [place] [facility] [id number] [address]- 7765 Aug, [facility] [place] [facility] [address] [facility] [id number], [place] [address]- 2387 Aug, [facility] [place] [facility] [address] [facility] [id number] [place] [address]- 3817 Aug, [facility] [place] [facility] [address] [facility] [id number]- 8239 Aug, [facility] [place] [facility] [address] [facility] [id number] [place] [address]- 5867 Aug, [facility] [place] [facility] [address] [facility] [id number] [place] [address]- 2144 19 Aug, 2014 [facility] [place] [facility] [address] [id number] [place] [address]- 3365 18 Aug, 2014 [facility] [place] [facility] [address] [id number] [place] [address]- 4180 18 Aug, 2014 [facility] [place] [facility] [address] [id number] [place] [address]- 5954 18 Aug, 2014 [facility] [place] [facility] [address] [id number] [place] [address]- 5978 18 Aug, 2014 [facility] [place] [facility] [address] [id number] [place] [address]- 6930 16 Aug, 2014 [facility] [place] [facility] [address] [id number] [place] [address]- 3597 Aug, 2014 [facility] [place] [facility] [address] [id number] [place] [address]- 3669 Aug, 2014 [facility] [place] [facility] [address] [id number] [place] [address]- 9604 Aug, [facility] [place] [facility] [address] [id number] [place] [address]- 8393 Aug, 2014 [facility] [place] [facility] [address] [id number] [place] [address]- 5054 Aug, [facility] [place] [facility] [address] [id number] [place] [address]- 1640 09 Aug, 2014 [facility] [place] [facility] [address] [id number] [place] [address]- 7721 06 Aug, 2014 [facility] [place] [facility] [address] [id number] [place] [address]- 4773 05 Aug, 2014 [facility] [place] [facility] [address] [id number] [place] [address]- 9506 Aug, 2014 [facility] [place] [facility] [address] [id number] [place] [address]- 9361 Aug, 2014 [facility] [place] [facility] [address] [id number] [place] [address]- 5704 Aug, [facility] [place] [facility] [address] [id number] [place] [address]- 1753 Aug, [facility] [place] [facility] [address] [id number] [place] [address]- 0718 Jul, 2014 [facility] [place] [facility] [address] [id number] [place] [address]- 9493 Jul, 2014 [facility] [place] [facility] [address] [id number] [place] [address]- 3479 Jul, 2014 [facility] [place] [facility] [address] [id number] [place] [address] Jul, 2014 [facility] [place] [facility] [address] [id number] [place] [address] Jul, [facility] [place] [facility] [address] [id number] [place] [address] Jul, 2014 [facility] [place] [facility] [address] [id number] [place] [address] Jul, 2014 [facility] [place] [facility] [address] [id number] [place] [address] Jul, [facility] [place] [facility] [address] [id number] [place] [address] Jul, 2014 [facility] [place] [facility] [address] [id number] [place] [address] Jul, [facility] [place] [facility] [address] [id number] [place] [address] Jun, [facility] [place] [facility] [address] [id number] [place] [address] Jun, [facility] [place] [facility] [address] [id number] [place] [address] Jun, [facility] [place] [facility] [address] [id number] [place] [address] Jun, [facility] [address] [id number] [place] [address] Jun, [facility] [address] [id number] [place] [address] Jun, [facility] [address] [id number] [place] [address] Jun, [facility] [address] [id number] [place] [address] May, [facility] [address] [id number] [place] [address] May, [facility] [address] [id number] [place] [address] May, [facility] [address] [id number] [place] [address] May, [facility] [address] [id number] [place] [address] May, [facility] [address] [id number] [place] [address] May, [facility] [address] [id number] [place] [address] May, [facility] [place] [facility] [address] [id number] [place] [address] May, [facility] [place] [facility] [address] [id number] [place] [address] May, [facility] [place] [facility] [address] [id number] [place] [address] May, [facility] [place] [facility] [address] [id number] [place] [address] Apr, [facility] [place] [facility] [address] [id number] [place] [address] Apr, [facility] [place] [facility] [address] [id number] [place] [address] Apr, [facility] [place] [facility] [address] [id number] [place] [address] Apr, [facility] [place] [facility] [address] [id number] [place] [address] Apr, [facility] [place] [facility] [address] [id number] [place] [address] Apr, [facility] [place] [facility] [address] [id number] [place] [address] Apr, [facility] [place] [facility] [address] [id number] [place] [place] [address] Apr, [facility] [place] [facility] [address] [id number] [place] [address] Apr, [facility] [place] [facility] [address] [id number] [place] [address] Mar, [facility] [place] [facility] [address] [id number] [place] [address] Mar, [facility] [place] [facility] [address] [id number] [place] [address] Mar, [facility] [place] [facility] [address] [id number] [place] [address] Mar, [facility] [place] [facility] [address] [id number], [place] [address] Mar, [facility] [place] [facility] [address] [id number] [place] [address] Mar, [facility] [place] [facility] [address] [id number] [place] [address] Mar, [facility] [place] [facility] [address] [id number], [place] [address] Mar, [facility] [place] [facility] [address] [id number], [place] [address] Mar, [facility] [place] [facility] [address] [id number] [place] [address] Mar, [facility] [place] [facility] [address] [id number] [place] [address] Feb, [facility] [place] [facility] [address] [id number] [place] [address] 65[address] Feb, [facility] [place] [facility] [address] [id number] [place] [address] Feb, [facility] [place] [facility] [address] [id number] [place] [address] 1610 Feb, [facility] [place] [facility] [address] [id number] [place] [address] 1453 Feb, [facility] [place] [facility] [address] [id number] [place] [address]- 5582 Jan, [facility] [place] [facility] [address] [id number] [place] [address]- 9263 Jan, [facility] [place] [facility] [address] [id number] [place] [address]- 7388 Jan, [facility] [place] [facility] [address] [id number] [place] [address]- 9[address] Jan, [facility] [place] [facility] [address] [id number] [place] [address]- [address] Jan, [facility] [place] [facility] [address] [id number] [place] [address]- 9087 Jan, [facility] [place] [facility] [address] [id number] [place] [address]- 3746 Jan, [facility] [place] [facility] [address] [id number] [place] [address]- 0659 Jan, [facility] [place] [facility] [address] [id number] [place] [address]- 4290 Jan, [facility] [place] [facility] [address] [id number] [place] [address] Dec, [facility] [place] [facility] [address] [id number] [place] [address]- [address]79 Dec, [facility] [place] [facility] [address] [id number] [place] [address]- [address] Dec, [facility] [place] [facility] [address] [id number] [place] [address]- [address]44 Dec, [facility] [place] [facility] [address] [id number] [place] [address]- 6993 Dec, [facility] [place] [facility] [address] [id number] [place] [address]- [address]398 Dec, [facility] [place] [facility] [address] [id number] [place] [address]- 6920 Dec, [facility] [place] [facility] [address] [id number] [place] [address]- 3841 Dec, [facility] [place] [facility] [address] [id number] [place] [address]- 6[address] Nov, [facility] [place] [facility] [address] [id number] [place] [address]- 9262 Nov, [facility] [place] [facility] [address] [id number] [place] [address]- 3624 Nov, [facility] [place] [facility] [address] [id number] [place] [address]- 2257 Nov, [facility] [place] [facility] [address] [id number] [place] [address]- 3810 Nov, [facility] [place] [facility] [address] [id number] [place] [address]- 3397 Nov, [facility] [place] [facility] [address] [id number] [place] [address]- 8960 Nov, [facility] [place] [facility] [address] [id number] [place] [address]- [address] Nov, [facility] [place] [facility] [address] [id number] [place] [address]- 1799 Nov, [facility] [place] [facility] [address] [id number] [place] [address] Nov, [facility] [place] [facility] [address] [id number] [place] [address]- 4468 Nov, [facility] [place] [facility] [address] [id number] [place] [address]- 1579 Nov, [facility] [place] [facility] [address] [id number] [place] [address]- 2274 October, [facility] [place] [facility] [address] [id number] [place] [address]- 2919 October, [facility] [place] [facility] [address] [id number] [place] [address]- 8610 October, [facility] [place] [facility] [address] [id number] [place] [address]- 4029 October, [facility] [place] [facility] [address] [id number] [place] [address]- 3327 October, [facility] [place] [facility] [address] [id number] [place] [address]- 6928 Sep, [facility] [place] [facility] [address] [id number] [place] [address]- 3791 Sep, [facility] [place] [facility] [address] [id number] [place] [address]- 6225 Sep, [facility] [place] [facility] [address] [id number] [place] [address]- 7384 Sep, [facility] [place] [facility] [address] [id number] [place] [address]- 4269 Sep, [facility] [place] [facility] [address] [id number] [place] [address]- 0433 Sep, [facility] [place] [facility] [address] [id number] [place] [address]- 6363 Sep, [facility] [place] [facility] [address] [id number] [place] [address]- 8853 Sep, [facility] [place] [facility] [address] [id number] [place] [address] Sep, [facility] [place] [facility] [address] [id number] [place] [address]- 1169 Sep, [facility] [place] [facility] [address] [id number] [place] [address]- 5058 Sep, [facility] [place] [facility] [address] [id number] [place] [address]- 6668 Sep, [facility] [place] [facility] [address] [id number] [place] [address]- 2103 Sep, [facility] [place] [facility] [address] [id number] [place] [address]- 0385 Sep, [facility] [place] [facility] [address] [id number] [place] [address]- 1594 Sep, [facility] [place] [facility] [address] [id number] [place] [address]- 3164 Sep, [facility] [place] [facility] [address] [id number] [place] [address]- 1379 Sep, [facility] [place] [facility] [address] [id number] [place] [address]- 4919 Sep, [facility] [place] [facility] [address] [id number] [place] [address]- 6106 Sep, [facility] [place] [facility] [address] [id number] [place] [address]- 0863 Aug, [facility] [place] [facility] [address] [id number] [place] [address]- 8683 Aug, [facility] [place] [facility] [address] [id number] [place] [address]- 4694 Aug, [facility] [place] [facility] [id number], [place] [address] Aug, [facility] [id number], [place] [address] Jun, [facility] [id number], [place] [address] 9716 Jun, [facility] [id number] [place] [address]- 2492 Mar, [facility] [address] [facility] [place] [id number], [place] [address] Mar, [facility] [id number] [place] [address]- 4931 Nov, [facility] [id number], [place] [address]- 2670 Sep, [facility] [id number], [place] [address]- 2897 Jun, [facility] [id number], [place] [address]- 9322 Jun, [facility] [id number], [place] [address]- 7415 Apr, [facility] [id number], [place] [address]- 9006 Apr, [facility] [id number], [place] [address]- 2699 Apr, [facility] [id number] [address]- [address] Mar, [facility] [id number] [address] 14 Feb, 2010 IMMUNIZATIONS No Known Immunizations SOCIAL HISTORY Never Assessed REASON FOR VISIT Refill Request PLAN OF CARE VITAL SIGNS MEDICATIONS [...] History [facility] unit 03/2016 Hospitalization History [place] x 30 days
--- OUTSIDE RECORDS SUMMARY | 2018-02-02 17:42 | XMS REPORT ---
Author Author CHRISTO ADELA [facility] Address [address] [place] [address] Care Team Providers Care Cloth Stretcher Name Role Phone ADELA VILLAFUERTE Unavailable PROBLEMS Type Condition ICD9-CM Code DQY38-CF Code Onset Dates Condition Status SNOMED Code Problem Schizoaffective disorder, bipolar type F25.0 Active 14391734 Problem Vaginal burning N94.9 Active 402682336 Problem Other chronic pain G89.29 Active 46056427 Problem Type 2 diabetes mellitus without complications E11.9 Active 959704874 Problem correction 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 Active 549949425 Problem Hand eczema L30.9 Active 466692185 Problem Bulging of cervical intervertebral disc M50.20 Active 927741665 Problem Type 2 diabetes mellitus without complication, without long-term current use of insulin E11.9 Active 150888932 Problem Gastroesophageal reflux disease, esophagitis presence not specified K21.9 Active 174133658 Problem Cervical dysplasia N87.9 Active 74044200 Problem Hypothyroidism E03.9 Active 82591449 Problem Hypertriglyceridemia E78.1 Active 447078222 Problem Prediabetes R73.09 Active 4452883 Problem Bulge of cervical disc without myelopathy M50.20 Active 765409629 Problem Mild intermittent asthma, uncomplicated J45.20 Active 475320432 Problem Lumbar facet arthropathy M46.96 Active 800591745 Problem Generalized anxiety disorder F41.1 Active 60805501 ALLERGIES No Information ENCOUNTERS Encounter Location Date Diagnosis [facility] [id number] [address] Feb, [facility] [id number] [place] [address] 01555- 5803 Dec, Type 2 diabetes mellitus without complications E11.9 and health consultant 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 [facility] [address] [address] Dec, Type 2 diabetes mellitus without complication, without long- term current use of insulin E11.9 [address] [id number] [place] [address] 33635- 4338 Dec, [place] [facility] [id number] [place] [address] 38457- 0551 Dec, Type 2 diabetes mellitus without complication, without long- term current use of insulin E11.9 [facility] [facility] [id number] [place] [address] 37474- 4576 Dec, Type 2 diabetes mellitus without complication, without long- term current use of insulin E11.9 and Gastroesophageal reflux disease, esophagitis presence not specified K21.9 [address] [id number] [place] [address] 02755- 9413 Dec, [facility] [address] [id number] October, Dental examination Z01.20 [place] [id number] [place] [address] 85325- 6051 Sep, [facility] [facility] [id number] [place] [address] 22751- 0976 Sep, Hypertriglyceridemia E78.1 [facility] [facility] [id number] [place] [address] 90844- 0712 Sep, Hypothyroidism E03.9 ; Prediabetes R73.09 ; Mild intermittent asthma, uncomplicated J45.20 ; Bulge of cervical disc without myelopathy M50.20 ; Other chronic pain G89.29 ; Hand eczema L30.9 ; Right anterior knee pain M25.561 ; Hypertriglyceridemia E78.1 and BMI 40.0-44.9, adult Z68.41 [place] [id number] [place] [address] 95489- 8557 Sep, [facility] [facility] [id number] [place] [address] 87958- 8069 Sep, [place] [address] [address] 8742 Jul, [facility] [id number] [place] [address] 92083- 0143 May, Acute non-recurrent maxillary sinusitis J01.00 [facility] [id number] [place] [address] 19194 -7580 Mar, Other viral agents as the cause of diseases classified elsewhere B97.89 and Acute upper respiratory infection, unspecified J06.9 [facility] [id number] [place] [address] 01561- 3009 Mar, [place] [id number] [place] [address] 10742- 7112 Mar, Neck pain M54.2 [place] [id number] [place] [address] 33605- 7182 Feb, Bulge of cervical disc without myelopathy M50.20 [facility] [id number] [place] [address] 22138- 5063 Feb, Neck pain M54.2 [place] [address] 63293- 6506 Feb, [facility] [id number] [place] [address] 99892- 8439 Feb, Bulge of cervical disc without myelopathy M50.20 ; Hypertriglyceridemia E78.1 ; Hand eczema L30.9 and Hypothyroidism E03.9 [facility] [id number] [place] [address] 16286- 7696 Jan, [facility] [address] [id number] October, 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 dental examination Z01.20 [facility] [id number] [place] [address] 44469- 0575 Sep, Generalized abdominal pain R10.84 [place] [address] 49225- 9944 Sep, Schizoaffective disorder, bipolar type F25.0 and Generalized anxiety disorder F41.1 [facility] [address] [address] 44311 -2595 Sep, [facility] [address] [place] [address] 85221 -1508 Sep, Vaginal burning N94.9 and Vaginal mitzi B37.3 [facility] [address] [place] [address] 50080 -3033 Sep, Gastroenteritis K52.9 [facility] [address] [place] [address] 35533 -9719 Sep, Thrush B37.0 [facility] [address] [place] [address] 61283 -9460 Sep, Pharyngitis due to other organism J02.[address] 98359- 3103 Sep, [facility] [address] 54794 -4512 Aug, Cervicalgia M54.[address] 17648- 4748 Aug, Hypothyroidism E03.9 ; Dry skin L85.3 ; Plantar fasciitis, bilateral M72.2 and Other chronic pain G89.29 [facility] [address] [place] [address] 37975 -4992 Aug, Abrasion T14.8 [facility] [address] [id number] Aug, Dental examination Z01.20 [facility] [address] [place] [address] 13598 -5017 Aug, Excessive cerumen in right ear canal H61.21 ; Impacted cerumen of both ears 380.4 and Bronchitis J40 [facility] [id number] [place] [address] 76420 -0577 Jul, Bilateral impacted cerumen H61.23 and Acute non-recurrent frontal sinusitis J01.10 [facility] [id number] [place] [address] 63159- 5925 May, Schizoaffective disorder, bipolar type F25.0 and Generalized anxiety disorder F41.1 [facility] [address] 61687- 6664 May, [facility] [address] 99280- 0733 May, Cervicalgia M54.2 and Hypertriglyceridemia E78.1 [facility] [address] 97823- 5765 May, [facility] [address] 72019- 5310 May, STD exposure Z20.2 and Well woman exam Z01.419 [place] [address] 09053- 9890 May, [facility] [id number] [place] [address] 89983- 8562 Mar, [facility] [id number] [place] [address] 70508- 9359 Dec, Pain in left knee M25.562 [facility] [id number] [place] [address] 71123- 2266 Dec, [facility] [address] 61532- 1820 Nov, [facility] [id number] [place] [address] 95982- 0873 October, [facility] [address] 09307- 0606 Aug, [facility] [address], [place] [address]- 5189 Jul, [facility] [id number] [place] [address] 82317- 0870 Jul, [facility] [id number] [place] [address] 75834- 3166 Jul, Plantar fasciitis M72.2 and 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 [facility] [id number] [place] [address] 75676- 6470 Jul, [facility] [id number] [place] [address] 94401- 8037 Jun, Plantar fasciitis M72.2 and Physical exam Z00.00 [facility] [id number] [place] [address] 99066- 4133 Jun, [facility] [id number] [place] [address] 94786- 4824 Jun, [facility] [id number] [place] [address] 00471- 1824 Jun, [facility] [id number] [place] [address] 73775- 6057 May, [facility] [id number] [place] [address] 41677- 7629 May, Hypertriglyceridemia E78.1 [facility] [id number] [place] [address] 20693- 8656 16 May, 2015 Hypothyroidism E03.9 ; Prediabetes R73.09 and Hypertriglyceridemia E78.1 [facility] [id number] [place] [address] 63311- 8631 May, [facility] [id number] [place] [address] 51065- 9593 May, [facility] [id number] [place] [address] 95058- 8916 May, Hypothyroidism E03.9 ; Prediabetes R73.09 and Hypertriglyceridemia E78.1 [place] [id number] [place] [address] 19686- 2345 Apr, Schizoaffective disorder, bipolar type F25.0 [facility] [id number] [place] [address] 72190- 3990 Mar, [facility] [address] 55077- 9173 Mar, [facility] [id number] [place] [address] 23908- 6844 Mar, [facility] [id number] [place] [address] 48390- 6410 Feb, [facility] [id number] [place] [address] 99149- 9796 Feb, [facility] [id number] [place] [address] 51562- 1411 Feb, [facility] [id number] [place] [address] 17460- 4523 Feb, Screen for STD (sexually transmitted disease) V74.5 ; Counseling on other sexually transmitted diseases V65.45 ; Back pain 724.5 ; Contact with or exposure to venereal diseases V01.6 and Pelvic pain in female 625.9 [facility] [id number] [place] [address] 50059- 9973 Feb, Schizoaffective disorder, unspecified 295.70 and Anxiety state, unspecified 300.00 [place] [id number] [place] [address] 55538- 3632 14 Feb, 2015 [facility] [id number] [place] [address] 17504- 7406 10 Feb, 2015 [facility] [id number] [place] [address] 95647- 6245 03 Feb, 2015 Impacted cerumen of both ears 380.4 and Mild intermittent asthma 493.90 [facility] [address], [place] [address]- 0842 Feb, [facility] [id number] [place] [address] 28397- 7704 Jan, [facility] [id number] [address]- 5631 Jan, [facility] [id number] [place] [address] 44690- 4341 Jan, [facility] [id number] [place] [address] 59113- 8365 Jan, [facility] [id number] [place] [address] 23430- 5855 Jan, [facility] [id number] [place] [address] 87999- 7941 Jan, [facility] [id number] [address]- 0309 Jan, [facility] [id number] [place] [address] 80646- 4580 Jan, [facility] [address], [place] [address]- 4965 Jan, [facility] [address] [address]- 6518 Jan, [facility] [address], [place] [address]- 6652 Jan, [facility] [address] [address]- 8653 Dec, Schizoaffective disorder, unspecified 295.70 [facility] [address], [place] [address]- 5616 Dec, [facility] [address], [place] [address]- 1339 Dec, [facility] [address] [address]- 0005 Dec, [facility] [address] 8545 Dec, [facility] [address], [place] [address]- 5167 Dec, [facility] [address] [id number] Dec, Dental examination V72.2 [facility] [address]- 2941 Dec, Schizoaffective disorder, unspecified 295.70 ; Persistent disorder of initiating 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.42 and Anxiety state, unspecified 300.00 [facility] [address]- 2667 Dec, [facility] [address] [address]- 5447 Nov, High risk medication use V58.69 [facility] [address] 4826 Nov, [facility] [address] [address]- 5514 Nov, [facility] [address] 9415 Nov, High risk medication use V58.69 [facility] [address], [place] [address]- 9697 Nov, [facility] [address] 8156 Nov, [facility] [address] 6036 Nov, [facility] [address] [address]- 0239 Nov, Hypothyroidism 244.9 ; Hypertriglyceridemia 272.1 and Prediabetes 790.29 [facility] [id number] [place] [address] 81493- 2264 Nov, [facility] [id number] [place] [address] 99536- 1125 Nov, [facility] [address] 96571- 3634 Nov, Bulge of cervical disc without myelopathy 722.0 ; Lumbar facet arthropathy 721.3 ; Family history of stroke V17.1 ; Hyperthyroidism 242.90 and 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 long-term current use of medication V58.69 [facility] [id number] [place] [address] 03479- 2453 Nov, [facility] [id number] [place] [address] 19167- 3587 October, [facility] [address] 10924- 5896 October, [facility] [id number] [place] [address] 13664- 0830 October, [facility] [id number] [place] [address] 01689- 5212 October, [facility] [id number] [place] [address] 15265- 0459 October, [facility] [id number] [place] [address] 63994- 3890 October, [facility] [id number] [place] [address] 45084- 0856 October, Schizoaffective disorder, unspecified 295.70 and Persistent disorder of initiating 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.42 [facility] [id number] [place] [address] 89067- 6625 October, Schizoaffective disorder, unspecified 295.70 [facility] [address] [place] [address]- 8175 October, [facility] [address] [facility] [id number] [place] [address]- 9562 October, [facility] [place] [facility] [address] [facility] [id number] [place] [address]- 7281 October, [facility] [address] [facility] [id number] [place] [address]- 4738 Sep, Lumbago of lumbar region with sciatica 724.2 and Neck pain 723.1 [facility] [place] [facility] [address] [id number] [place] [address]- 1268 Sep, [facility] [place] [facility] [address] [facility] [id number] [place] [address]- 7308 Sep, [facility] [place] [facility] [address] [address]- 1086 Aug, [facility] [place] [facility] [address] [facility] [id number] [address]- 3032 Aug, [facility] [place] [facility] [id number] [address]- 0641 Aug, [facility] [place] [facility] [id number] [address]- 2303 Aug, [facility] [place] [facility] [id number], [place] [address]- 8302 Aug, [facility] [place] [facility] [address] [facility] [id number] [address]- 9631 Aug, [facility] [place] [facility] [address] [facility] [id number] [place] [address]- 0368 Aug, [facility] [place] [facility] [address] [facility] [id number] 7958 Aug, [facility] [place] [facility] [address] [facility] [id number] [place] [address]- 7251 Aug, [facility] [place] [facility] [address] [facility] [id number] [place] [address]- 1938 19 Aug, 2014 [facility] [place] [facility] [address] [id number] [place] [address]- 8964 18 Aug, 2014 [facility] [place] [facility] [address] [id number] [place] [address]- 1253 18 Aug, 2014 [facility] [place] [facility] [address] [id number] [place] [address]- 3673 18 Aug, 2014 [facility] [place] [facility] [address] [id number] [place] [address]- 4049 18 Aug, 2014 [facility] [place] [facility] [address] [id number] [place] [address]- 8694 16 Aug, 2014 [facility] [place] [facility] [address] [id number] [place] [address]- 4336 Aug, 2014 [facility] [place] [facility] [address] [id number] [place] [address]- 5414 Aug, 2014 [facility] [place] [facility] [address] [id number] [place] [address]- 4998 Aug, [facility] [place] [facility] [address] [id number] [place] [address]- 0506 Aug, 2014 [facility] [place] [facility] [address] [id number] [place] [address]- 4953 Aug, [facility] [place] [facility] [address] [id number] [place] [address]- 8788 09 Aug, 2014 [facility] [place] [facility] [address] [id number] [place] [address]- 8919 06 Aug, 2014 [facility] [place] [facility] [address] [id number] [place] [address]- 9199 05 Aug, 2014 [facility] [place] [facility] [address] [id number] [place] [address]- 7181 Aug, 2014 [facility] [place] [facility] [address] [id number] [place] [address]- 6050 Aug, 2014 [facility] [place] [facility] [address] [id number] [place] [address]- 2132 Aug, [facility] [place] [facility] [address] [id number] [place] [address]- 9598 Aug, [facility] [place] [facility] [address] [id number] [place] [address]- 8978 Jul, 2014 [facility] [place] [facility] [address] [id number] [place] [address]- 4344 Jul, 2014 [facility] [place] [facility] [address] [id number] [place] [address]- 5537 Jul, 2014 [facility] [place] [facility] [address] [id number] [place] [address]- 7068 Jul, 2014 [facility] [place] [facility] [address] [id number] [place] [address]- 2545 Jul, [facility] [place] [facility] [address] [id number] [place] [address]- 5870 Jul, 2014 [facility] [place] [facility] [address] [id number] [place] [address]- 2530 Jul, 2014 [facility] [place] [facility] [address] [id number] [place] [address]- 1545 Jul, [facility] [place] [facility] [address] [id number] [place] [address]- 8486 Jul, 2014 [facility] [place] [facility] [address] [id number] [place] [address]- 0437 Jul, [facility] [place] [facility] [address] [id number] [place] [address]- 4946 Jun, [facility] [place] [facility] [address] [id number] [place] [address]- 4966 Jun, [facility] [place] [facility] [address] [id number] [place] [address]- 7631 Jun, [facility] [place] [facility] [address] [id number] [place] [address]- 1182 Jun, [facility] [address] [id number] [place] [address]- 3306 Jun, [facility] [address] [id number] [place] [address]- 3329 Jun, [facility] [address] [id number] [place] [address]- 3643 Jun, [facility] [address] [id number] [place] [address]- 7395 May, [facility] [address] [id number] [place] [address]- 5243 May, [facility] [address] [id number] [place] [address] May, [facility] [address] [id number] [place] [address] May, [facility] [address] [id number] [place] [address] May, [facility] [address] [id number] [place] [address] May, [facility] [address] [id number] [place] [address] May, [facility] [place] [facility] [address] [id number] [place] [address] May, [facility] [place] [facility] [address] [id number] [place] [address] May, [facility] [place] [facility] [address] [id number] [place] [address] May, [facility] [place] [facility] [address] [id number] [place] [address] Apr, [facility] [place] [facility] [address] [id number] [place] [address] Apr, [facility] [place] [facility] [address] [id number] [place] [address] Apr, [facility] [place] [facility] [address] [id number] [place] [address] Apr, [facility] [place] [facility] [address] [id number] [place] [address] Apr, [facility] [place] [facility] [address] [id number] [place] [address] Apr, [facility] [place] [facility] [address] [id number] [place] [address] Apr, [facility] [place] [facility] [address] [id number] [place] [address] Apr, [facility] [place] [facility] [address] [id number] [place] [address] Apr, [facility] [place] [facility] [address] [id number] [place] [address] Mar, [facility] [place] [facility] [address] [id number] [place] [address] Mar, [facility] [place] [facility] [address] [id number] [place] [address] Mar, [facility] [place] [facility] [address] [id number] [place] [address] Mar, [facility] [place] [facility] [address] [id number] [address] Mar, [facility] [place] [facility] [address] [id number] [place] [address]- [address] Mar, [facility] [place] [facility] [address] [id number] [place] [address] Mar, [facility] [place] [facility] [address] [id number], [place] [address] Mar, [facility] [place] [facility] [address] [id number], [place] [address] Mar, [facility] [place] [facility] [address] [id number] [place] [address] Mar, [facility] [place] [facility] [address] [id number] [place] [address] Feb, [facility] [facility] [address] [id number] [place] [address] Feb, [facility] [place] [facility] [address] [id number] [place] [address] Feb, [facility] [place] [facility] [address] [id number] [place] [address] Feb, [facility] [place] [facility] [address] [id number] [place] [address] Feb, [facility] [place] [facility] [address] [id number] [place] [address] Jan, [facility] [place] [facility] [address] [id number] [place] [address] Jan, [facility] [place] [facility] [address] [id number] [place] [address] Jan, [facility] [place] [facility] [address] [id number] [place] [address] Jan, [facility] [place] [facility] [address] [id number] [place] [address] Jan, [facility] [place] [facility] [address] [id number] [place] [address] Jan, [facility] [place] [facility] [address] [id number] [place] [address] Jan, [facility] [place] [facility] [address] [id number] [place] [address] Jan, [facility] [place] [facility] [address] [id number] [place] [address] Jan, [facility] [place] [address] [id number] [place] [address] Dec, [facility] [place] [facility] [address] [id number] [place] [address] Dec, [facility] [place] [address] [id number] [place] [address] Dec, [facility] [place] [facility] [address] [id number] [place] [address] Dec, [facility] [place] [facility] [address] [id number] [place] [address] Dec, [facility] [place] [facility] [address] [id number] [place] [address] Dec, [facility] [address] [id number] [place] [address]- [address]60 Dec, [facility] [place] [address] [id number] [place] [address]- [address] Dec, [facility] [place] [address] [id number] [place] [address] Nov, [facility] [facility] [address] [id number] [place] [address]- [address] Nov, [facility] [address] [id number] [place] [address] Nov, [facility] [place] [facility] [address] [id number] [place] [address]- [address]34 Nov, [facility] [address] [id number] [place] [address]127 Nov, [facility] [place] [facility] [address] [id number] [place] [address]- [address] Nov, [facility] [address] [id number] [place] [address] Nov, [facility] [facility] [address] [id number] [place] [address]- 0429 Nov, [facility] [place] [facility] [address] [id number] [place] [address] 1900 Nov, [facility] [place] [facility] [address] [id number] [place] [address]- 9627 Nov, [facility] [address] [id number] [place] [address]- 1658 Nov, [facility] [place] [address] [id number] [place] [address] 1421 Nov, [facility] [address] [id number] [place] [address]- 17[address] October, [facility] [address] [id number] [place] [address]- 6417 October, [facility] [facility] [address] [id number] [place] [address]- [address] October, [facility] [address] [id number] [place] [address] 5640 October, [facility] [address] [id number] [place] [address]- 5637 October, [facility] [place] [facility] [address] [id number] [place] [address] 290[address] Sep, [facility] [place] [facility] [address] [id number] [place] [address]- [address] Sep, [facility] [address] [id number] [place] [address]- 9823 Sep, [facility] [address] [id number] [place] [address]- [address] Sep, [facility] [address] [id number] [place] [address]- 9977 Sep, [facility] [address] [id number] [place] [address]- [address] Sep, [facility] [address] [id number] [place] [address]- 4676 Sep, [facility] [address] [id number] [place] [address]- [address]327 Sep, [facility] [address] [id number] [place] [address]- [address] Sep, [facility] [address] [id number] [place] [address]- 6923 Sep, [facility] [address] [id number] [place] [address]- [address]370 Sep, [facility] [address] [id number] [place] [address]- 6981 Sep, [facility] [address] [id number] [place] [address]- 8562 Sep, [facility] [address] [id number] [place] [address]- 3174 Sep, [facility] [address] [id number] [place] [address]- 5081 Sep, [facility] [address] [id number] [place] [address]- 2856 Sep, [facility] [address] [id number] [place] [address]- 6031 Sep, [facility] [address] [id number] [place] [address]- 45[address] Sep, [facility] [address] [id number] [place] [address]- 5874 Sep, [facility] [address] [id number] [place] [address]- 2061 Aug, [facility] [address] [id number] [place] [address]- 7456 Aug, [facility] [address] [id number] [place] [address]- 4916 Aug, [facility] [id number] [place] [address] Aug, [facility] [id number] [place] [address] Jun, [facility] [id number] [place] [address] Jun, [facility] [id number] [place] [address] Mar, [facility] [address] [facility] [id number] [address] Mar, [facility] [id number] [place] [address]- [address]71 Nov, [facility] [id number] [place] [address]- [address] Sep, [facility] [id number], [place] [address] Jun, [facility] [id number], [place] [address]- [address] Jun, [facility] [id number] [place] [address] Apr, [facility] [id number], [place] [address] 8[address] Apr, [facility] [id number] [place] [address] Apr, [facility] [id number] [address] Mar, [facility] [id number] [id number] 14 Feb, 2010 IMMUNIZATIONS No Known Immunizations SOCIAL HISTORY Never Assessed REASON FOR VISIT Refill request PLAN OF CARE VITAL SIGNS MEDICATIONS Unknown [...] History [facility] 03/2016 Hospitalization History [facility] x 30 days
--- OUTSIDE RECORDS SUMMARY | 2018-02-02 17:50 | XMS REPORT | Continuity of Care Document ---
Author Author [facility] of [facility] of [facility] Address Unknown Phone Unavailable Allergies Active Description Code Type Severity Reaction Onset Reported/Identified Relationship to Patient Clinical Status Yes NO KNOWN DRUG ALLERGIES NO KNOWN DRUG ALLERG UNKNOWN Yes NO KNOWN DRUG ALLERGIES UNKNOWN NO KNOWN DRUG ALLERG Yes No Known Drug Allergies [id number] Drug Allergy Unknown N/A 02/08/2012 Yes Seroquel 25 mg tablet Drug Allergy N/A N/A 05/23/2014 Medications There is no data. Problems Date Dx Coded Attending Type Code Diagnosis Diagnosed By 05/18/1533 ADELA VILLAFUERTE MD Ot M25.561 PAIN IN RIGHT KNEE 05/18/1533 ADELA VILLAFUERTE MD, Ot M54.2 CERVICALGIA 12/18/2009 691.8 DERMATITIS ATOPIC ECZEMA 12/18/2009 ROSALVA LOVE DDS N 691.8 DERMATITIS ATOPIC ECZEMA 12/18/2009 CHRISTIANO PERALES APRN 691.8 DERMATITIS ATOPIC ECZEMA 12/18/2009 ADELA VILLAFUERTE MD 691.8 DERMATITIS ATOPIC ECZEMA 12/18/2009 RADHA HAY, KAMILLA Galarza 691.8 DERMATITIS ATOPIC ECZEMA 12/18/2009 SIMONE WILKINS TIFFANY 691.8 DERMATITIS ATOPIC ECZEMA 12/18/2009 TIFFANY NICHOLS APRN 691.8 DERMATITIS ATOPIC ECZEMA 12/18/2009 LANDRY MA MD 691.8 DERMATITIS ATOPIC ECZEMA 12/18/2009 LANDRY MA MD 691.8 DERMATITIS ATOPIC ECZEMA 12/18/2009 RADHA HAY, KAMILLA Galarza 691.8 DERMATITIS ATOPIC ECZEMA 12/18/2009 SIMONE WILKINS, TIFFANY 691.8 DERMATITIS ATOPIC ECZEMA 12/18/2009 ARTURO MASON DO 691.8 DERMATITIS ATOPIC ECZEMA 12/18/2009 RADHA HAY, KAMILLA Galarza 691.8 DERMATITIS ATOPIC ECZEMA 12/18/2009 SIMONE WILKINS, TIFFANY 691.8 DERMATITIS ATOPIC ECZEMA 12/18/2009 SIMONE [employer]SET PRINTING PRESSMEN, TIFFANY 691.8 DERMATITIS ATOPIC ECZEMA 12/18/2009 SIMONE OFFSET PRINTING PRESSMEN, TIFFANY 691.8 DERMATITIS ATOPIC ECZEMA 12/18/2009 SIMONE OFFSET PRINTING PRESSMEN, TIFFANY 691.8 DERMATITIS ATOPIC ECZEMA 12/18/2009 SIMONE OFFSET PRINTING PRESSMEN, TIFFANY 691.8 DERMATITIS ATOPIC ECZEMA 12/18/2009 SIMONE OFFSET PRINTING PRESSMEN, TIFFANY 691.8 DERMATITIS ATOPIC ECZEMA 12/18/2009 SIMONE OFFSET PRINTING PRESSMEN, TIFFANY 691.8 DERMATITIS ATOPIC ECZEMA 12/18/2009 SIMONE OFFSET PRINTING PRESSMEN, TIFFANY 691.8 DERMATITIS ATOPIC ECZEMA 12/18/2009 SIMONE OFFSET PRINTING PRESSMEN, TIFFANY 691.8 DERMATITIS ATOPIC ECZEMA 12/18/2009 ANTHONY OFFSET PRINTING PRESSMEN, JUSTIN R 691.8 DERMATITIS ATOPIC ECZEMA 12/18/2009 ANTHONY OFFSET PRINTING PRESSMEN, JUSTIN R 691.8 DERMATITIS ATOPIC ECZEMA 12/18/2009 ANTHONY OFFSET PRINTING PRESSMEN, JUSTIN R 691.8 DERMATITIS ATOPIC ECZEMA 12/18/2009 SIMONE OFFSET PRINTING PRESSMEN, TIFFANY 691.8 DERMATITIS ATOPIC ECZEMA 02/24/2010 278.00 OBESITY, UNSPECIFIED 02/24/2010 IVAN DDS, ROSAVLA N 278.00 OBESITY, UNSPECIFIED 02/24/2010 COREY LOMAX [employer] PRESSMEN, CHRISTIANO N 278.00 OBESITY, UNSPECIFIED 02/24/2010 CHRISTO TORRES, ADELA N 278.00 OBESITY, UNSPECIFIED 02/24/2010 RADHA PHD, KAMILLA Galarza 278.00 OBESITY, UNSPECIFIED 02/24/2010 SIMONE [employer] PRESSMEN, TIFFANY 278.00 OBESITY, UNSPECIFIED 02/24/2010 SIMONE [employer]SET PRINTING PRESSMEN, TIFFANY 278.00 OBESITY, UNSPECIFIED 02/24/2010 ANIL TORRES, LANDRY 278.00 OBESITY, UNSPECIFIED 02/24/2010 ANIL TORRES, LANDRY 278.00 OBESITY, UNSPECIFIED 02/24/2010 RADHA PHD, KAMILLA Galarza 278.00 OBESITY, UNSPECIFIED 02/24/2010 SIMONE [employer] PRESSMEN, TIFFANY 278.00 OBESITY, UNSPECIFIED 02/24/2010 ARTURO MASON DO 278.00 OBESITY, UNSPECIFIED 02/24/2010 RADHA PHD, KAMILLA Galarza 278.00 OBESITY, UNSPECIFIED 02/24/2010 SIMONE [employer]ING PRESSMEN, TIFFANY 278.00 OBESITY, UNSPECIFIED 02/24/2010 SIMONE OFFSET PR[employer]ING PRESSMEN, TIFFANY 278.00 OBESITY, UNSPECIFIED 02/24/2010 SIMONE OFFSET PRINTING PRESSMEN, TIFFANY 278.00 OBESITY, UNSPECIFIED 02/24/2010 SIMONE OFFSET PRINTING PRESSMEN, TIFFANY 278.00 OBESITY, UNSPECIFIED 02/24/2010 SIMONE OFFSET PRINTING PRESSMEN, TIFFANY 278.00 OBESITY, UNSPECIFIED 02/24/2010 SIMONE OFFSET PRINTING PRESSMEN, TIFFANY 278.00 OBESITY, UNSPECIFIED 02/24/2010 SIMONE OFFSET PRINTING PRESSMEN, TIFFANY 278.00 OBESITY, UNSPECIFIED 02/24/2010 SIMONE OFFSET PRINTING PRESSMEN, TIFFANY 278.00 OBESITY, UNSPECIFIED 02/24/2010 SIMONE OFFSET PRINTING PRESSMEN, TIFFANY 278.00 OBESITY, UNSPECIFIED 02/24/2010 ANTHONY OFFSET PRINTING PRESSMEN, JUSTIN R 278.00 OBESITY, UNSPECIFIED 02/24/2010 ANTHONY OFFSET PRINTING PRESSMEN, JUSTIN R 278.00 OBESITY, UNSPECIFIED 02/24/2010 ANTHONY OFFSET PRINTING PRESSMEN, JUSTIN R 278.00 OBESITY, UNSPECIFIED 02/24/2010 SIMONE [employer] PR[employer]ING PRESSMEN, TIFFANY 278.00 OBESITY, UNSPECIFIED 03/18/2010 622.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 03/18/2010 V72.31 ROUTINE GYNECOLOGICAL EXAMINATION 03/18/2010 IVAN DDS, ROSALVA N 622.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 03/18/2010 EDUHALU DDS, ROSALVA N V72.31 ROUTINE GYNECOLOGICAL EXAMINATION 03/18/2010 NICOLE CASHERO [employer] PRESSMEN, CHRISTIANO N 622.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 03/18/2010 NICOLE CASHERO OFFSET PRINTING PRESSMEN, CHRISTIANO N V72.31 ROUTINE GYNECOLOGICAL EXAMINATION 03/18/2010 CHRISTO TORRES, ADELA N 622.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 03/18/2010 ADELA VILLAFUERTE MD N V72.31 ROUTINE GYNECOLOGICAL EXAMINATION 03/18/2010 RADHA HAY, KAMILLA Galarza 622.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 03/18/2010 RADHA HAY, KAMILLA Galarza V72.31 ROUTINE GYNECOLOGICAL EXAMINATION 03/18/2010 SIMONE OFFSET PRINTING PRESSMEN, TIFFANY 622.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 03/18/2010 SIMONE OFFSET PRINTING PRESSMEN, TIFFANY V72.31 ROUTINE GYNECOLOGICAL EXAMINATION 03/18/2010 SIMONE OFFSET PRINTING PRESSMEN, TIFFANY 622.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 03/18/2010 SIMONE OFFSET PRINTING PRESSMEN, TIFFANY V72.31 ROUTINE GYNECOLOGICAL EXAMINATION 03/18/2010 LANDRY MA MD 622.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 03/18/2010 LANDRY MA MD V72.31 ROUTINE GYNECOLOGICAL EXAMINATION 03/18/2010 LANDRY MA MD 622.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 03/18/2010 LANDRY MA MD V72.31 ROUTINE GYNECOLOGICAL EXAMINATION 03/18/2010 RADHA HAY, KAMILLA Galarza 622.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 03/18/2010 RADHA HAY, KAMILLA Galarza V72.31 ROUTINE GYNECOLOGICAL EXAMINATION 03/18/2010 SIMONE OFFSET PRINTING PRESSMEN, TIFFANY 622.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 03/18/2010 SIMONE OFFSET PRINTING PRESSMEN, TIFFANY V72.31 ROUTINE GYNECOLOGICAL EXAMINATION 03/18/2010 MASON DO, ARTURO K 622.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 03/18/2010 MASON DO, ARTURO K V72.31 ROUTINE GYNECOLOGICAL EXAMINATION 03/18/2010 RADHA AHY, KAMILLA Galarza 622.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 03/18/2010 RADHA HAY, KAMILLA Galarza V72.31 ROUTINE GYNECOLOGICAL EXAMINATION 03/18/2010 SIMONE OFFSET PRINTING PRESSMEN, TIFFANY 622.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 03/18/2010 SIMONE OFFSET PRINTING PRESSMEN, TIFFANY V72.31 ROUTINE GYNECOLOGICAL EXAMINATION 03/18/2010 SIMONE OFFSET PRINTING PRESSMEN, TIFFANY 622.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 03/18/2010 SIMONE OFFSET PRINTING PRESSMEN, TIFFANY V72.31 ROUTINE GYNECOLOGICAL EXAMINATION 03/18/2010 SIMONE OFFSET PRINTING PRESSMEN, TIFFANY 622.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 03/18/2010 SIMONE OFFSET PRINTING PRESSMEN, TIFFANY V72.31 ROUTINE GYNECOLOGICAL EXAMINATION 03/18/2010 SIMONE OFFSET PRINTING PRESSMEN, TIFFANY 622.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 03/18/2010 SIMONE OFFSET PRINTING PRESSMEN, TIFFANY V72.31 ROUTINE GYNECOLOGICAL EXAMINATION 03/18/2010 SIMONE OFFSET PRINTING PRESSMEN, TIFFANY 622.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 03/18/2010 SIMONE OFFSET PRINTING PRESSMEN, TIFFANY V72.31 ROUTINE GYNECOLOGICAL EXAMINATION 03/18/2010 SIMONE OFFSET PRINTING PRESSMEN, TIFFANY 622.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 03/18/2010 SIMONE OFFSET PRINTING PRESSMEN, TIFFANY V72.31 ROUTINE GYNECOLOGICAL EXAMINATION 03/18/2010 SIMONE OFFSET PRINTING PRESSMEN, TIFFANY 622.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 03/18/2010 SIMONE OFFSET PRINTING PRESSMEN, TIFFANY V72.31 ROUTINE GYNECOLOGICAL EXAMINATION 03/18/2010 SIMONE OFFSET PRINTING PRESSMEN, TIFFANY 622.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 03/18/2010 SIMONE OFFSET PRINTING PRESSMEN, TIFFANY V72.31 ROUTINE GYNECOLOGICAL EXAMINATION 03/18/2010 SIMONE OFFSET PRINTING PRESSMEN, TIFFANY 622.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 03/18/2010 SIMONE OFFSET PRINTING PRESSMEN, TIFFANY V72.31 ROUTINE GYNECOLOGICAL EXAMINATION 03/18/2010 ANTHONY OFFSET PRINTING PRESSMEN, JUSTIN R 622.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 03/18/2010 ANTHONY OFFSET PRINTING PRESSMEN, JUSTIN R V72.31 ROUTINE GYNECOLOGICAL EXAMINATION 03/18/2010 ANTHONY OFFSET PRINTING PRESSMEN, JUSTIN R 622.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 03/18/2010 ANTHONY OFFSET PRINTING PRESSMEN, JUSTIN R V72.31 ROUTINE GYNECOLOGICAL EXAMINATION 03/18/2010 ANTHONY OFFSET PRINTING PRESSMEN, JUSTIN R 622.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 03/18/2010 ANTHONY OFFSET PRINTING PRESSMEN, JUSTIN R V72.31 ROUTINE GYNECOLOGICAL EXAMINATION 03/18/2010 SIMONE OFFSET PRINTING PRESSMEN, TIFFANY 622.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 03/18/2010 SIMONE OFFSET PRINTING PRESSMEN, TIFFANY V72.31 ROUTINE GYNECOLOGICAL EXAMINATION 02/14/2012 Ot [...] MIGRAINE WITHOUT MENTION OF STATUS MIGRAINOSUS 07/16/2013 CHRISTO TORRES, ADELA Mcclellan 346.90 MIGRAINE UNSPECIFIED WITHOUT MENTION OF INTRACTABLE MIGRAINE WITHOUT MENTION OF STATUS MIGRAINOSUS 07/16/2013 RADHA PHD, KAMILLA A 346.90 MIGRAINE UNSPECIFIED WITHOUT MENTION OF INTRACTABLE MIGRAINE WITHOUT MENTION OF STATUS MIGRAINOSUS 07/16/2013 TIFFANY NICHOLS APRN 346.90 MIGRAINE UNSPECIFIED WITHOUT MENTION OF INTRACTABLE MIGRAINE WITHOUT MENTION OF STATUS MIGRAINOSUS 07/16/2013 TIFFANY NICHOLS APRN 346.90 MIGRAINE UNSPECIFIED WITHOUT MENTION OF INTRACTABLE MIGRAINE WITHOUT MENTION OF STATUS MIGRAINOSUS 07/16/2013 ANIL TORRES, LANDRY 346.90 MIGRAINE UNSPECIFIED WITHOUT MENTION OF INTRACTABLE MIGRAINE WITHOUT MENTION OF STATUS MIGRAINOSUS 07/16/2013 ANIL TORRES, LANDRY 346.90 MIGRAINE UNSPECIFIED WITHOUT MENTION OF INTRACTABLE MIGRAINE WITHOUT MENTION OF STATUS MIGRAINOSUS 07/16/2013 RADHA HAY, KAMILLA Galarza 346.90 MIGRAINE UNSPECIFIED WITHOUT MENTION OF INTRACTABLE MIGRAINE WITHOUT MENTION OF STATUS MIGRAINOSUS 07/16/2013 SIMONE OFFSET PRINTING PRESSMEN, TIFFANY 346.90 MIGRAINE UNSPECIFIED WITHOUT MENTION OF INTRACTABLE MIGRAINE WITHOUT MENTION OF STATUS MIGRAINOSUS 07/16/2013 ARTURO MASON DO 346.90 MIGRAINE UNSPECIFIED WITHOUT MENTION OF INTRACTABLE MIGRAINE WITHOUT MENTION OF STATUS MIGRAINOSUS 07/16/2013 RADHA HAY, KAMILLA Galarza 346.90 MIGRAINE UNSPECIFIED WITHOUT MENTION OF INTRACTABLE MIGRAINE WITHOUT MENTION OF STATUS MIGRAINOSUS 07/16/2013 SIMONE OFFSET PRINTING PRESSMEN, TIFFANY 346.90 MIGRAINE UNSPECIFIED WITHOUT MENTION OF INTRACTABLE MIGRAINE WITHOUT MENTION OF STATUS MIGRAINOSUS 07/16/2013 SIMONE OFFSET PRINTING PRESSMEN, TIFFANY 346.90 MIGRAINE UNSPECIFIED WITHOUT MENTION OF INTRACTABLE MIGRAINE WITHOUT MENTION OF STATUS MIGRAINOSUS 07/16/2013 SIMONE OFFSET PRINTING PRESSMEN, TIFFANY 346.90 MIGRAINE UNSPECIFIED WITHOUT MENTION OF INTRACTABLE MIGRAINE WITHOUT MENTION OF STATUS MIGRAINOSUS 07/16/2013 SIMONE OFFSET PRINTING PRESSMEN, TIFFANY 346.90 MIGRAINE UNSPECIFIED WITHOUT MENTION OF INTRACTABLE MIGRAINE WITHOUT MENTION OF STATUS MIGRAINOSUS 07/16/2013 SIMONE OFFSET PRINTING PRESSMEN, TIFFANY 346.90 MIGRAINE UNSPECIFIED WITHOUT MENTION OF INTRACTABLE MIGRAINE WITHOUT MENTION OF STATUS MIGRAINOSUS 07/16/2013 SIMONE OFFSET PRINTING PRESSMEN, TIFFANY 346.90 MIGRAINE UNSPECIFIED WITHOUT MENTION OF INTRACTABLE MIGRAINE WITHOUT MENTION OF STATUS MIGRAINOSUS 07/16/2013 SIMONE OFFSET PRINTING PRESSMEN, TIFFANY 346.90 MIGRAINE UNSPECIFIED WITHOUT MENTION OF INTRACTABLE MIGRAINE WITHOUT MENTION OF STATUS MIGRAINOSUS 07/16/2013 SIMONE OFFSET PRINTING PRESSMEN, TIFFANY 346.90 MIGRAINE UNSPECIFIED WITHOUT MENTION OF INTRACTABLE MIGRAINE WITHOUT MENTION OF STATUS MIGRAINOSUS 07/16/2013 SIMONE OFFSET PRINTING PRESSMEN, TIFFANY 346.90 MIGRAINE UNSPECIFIED WITHOUT MENTION OF INTRACTABLE MIGRAINE WITHOUT MENTION OF STATUS MIGRAINOSUS 07/16/2013 ANTHONY WILKINS JUSTIN R 346.90 MIGRAINE UNSPECIFIED WITHOUT MENTION OF INTRACTABLE MIGRAINE WITHOUT MENTION OF STATUS MIGRAINOSUS 07/16/2013 ANTHONY WILKINS JUSTIN R 346.90 MIGRAINE UNSPECIFIED WITHOUT MENTION OF INTRACTABLE MIGRAINE WITHOUT MENTION OF STATUS MIGRAINOSUS 07/16/2013 ANTHONY WILKINS JUSTIN R 346.90 MIGRAINE UNSPECIFIED WITHOUT MENTION OF INTRACTABLE MIGRAINE WITHOUT MENTION OF STATUS MIGRAINOSUS 07/16/2013 SIMONE OFFSET PRINTING PRESSMEN, TIFFANY 346.90 MIGRAINE UNSPECIFIED WITHOUT MENTION OF INTRACTABLE MIGRAINE WITHOUT MENTION OF STATUS MIGRAINOSUS 09/06/2013 SIMONE OFFSET PRINTING PRESSMEN, TIFFANY 300.00 AN ANXIETY UNSPEC 09/06/2013 SIMONE OFFSET PRINTING PRESSMEN, TIFFANY 300.00 AN ANXIETY UNSPEC 09/06/2013 LANDRY MA MD 300.00 AN ANXIETY UNSPEC 09/06/2013 LANDRY MA MD 300.00 AN ANXIETY UNSPEC 09/06/2013 RADHA HAY, KAMILLA Galarza 300.00 AN ANXIETY UNSPEC 09/06/2013 SIMONE OFFSET PRINTING PRESSMEN, TIFFANY 300.00 AN ANXIETY UNSPEC 09/06/2013 ARTURO MASON DO 300.00 AN ANXIETY UNSPEC 09/06/2013 RADHA HAY, KAMILLA A 300.00 AN ANXIETY UNSPEC 09/06/2013 SIMONE OFFSET PRINTING PRESSMEN, TIFFANY 300.00 AN ANXIETY UNSPEC 09/06/2013 SIMONE OFFSET PRINTING PRESSMEN, TIFFANY 300.00 AN ANXIETY UNSPEC 09/06/2013 SIMONE OFFSET PRINTING PRESSMEN, TIFFANY 300.00 AN ANXIETY UNSPEC 09/06/2013 SIMONE OFFSET PRINTING PRESSMEN, TIFFANY 300.00 AN ANXIETY UNSPEC 09/06/2013 SIMONE OFFSET PRINTING PRESSMEN, TIFFANY 300.00 AN ANXIETY UNSPEC 09/06/2013 SIMONE OFFSET PRINTING PRESSMEN, TIFFANY 300.00 AN ANXIETY UNSPEC 09/06/2013 SIMONE OFFSET PRINTING PRESSMEN, TIFFANY 300.00 AN ANXIETY UNSPEC 09/06/2013 SIMONE OFFSET PR[employer]ING PRESSMEN, TIFFANY 300.00 AN ANXIETY UNSPEC 09/06/2013 SIMONE [employer]SET PR[employer]ING PRESSMEN, TIFFANY 300.00 AN ANXIETY UNSPEC 09/06/2013 MT CRUZ APRNINA R 300.00 AN ANXIETY UNSPEC 09/06/2013 MT CRUZ APRNINA R 300.00 AN ANXIETY UNSPEC 09/06/2013 ANTHONY WILKINS JUSTIN R 300.00 AN ANXIETY UNSPEC 09/06/2013 SIMONE [employer]SET PR[employer]ING PRESSMEN, TIFFANY 300.00 AN ANXIETY UNSPEC 09/17/2013 RADHA HAY, KAMILLA Galarza 300.00 AN ANXIETY UNSPEC 09/17/2013 SIMONE [employer]SET PR[employer]ING PRESSMEN, TIFFANY 300.00 AN ANXIETY UNSPEC 09/17/2013 SIMONE OFFSET PR[employer]ING PRESSMEN, TIFFANY 300.00 AN ANXIETY UNSPEC 09/17/2013 LANDRY MA MD 300.00 AN ANXIETY UNSPEC 09/17/2013 ANIL TORRES LANDRY 300.00 AN ANXIETY UNSPEC 09/17/2013 RADHA PHD, KAMILLA Galarza 300.00 AN ANXIETY UNSPEC 09/17/2013 SIMONE [employer] PR[employer]ING PRESSMEN, TIFFANY 300.00 AN ANXIETY UNSPEC 09/17/2013 ARTURO MASON DO 300.00 AN ANXIETY UNSPEC 09/17/2013 RADHA PHD, KAMILLA A 300.00 AN ANXIETY UNSPEC 09/17/2013 SIMONE OFFSET PRINTING PRESSMEN, TIFFANY 300.00 AN ANXIETY UNSPEC 09/17/2013 SIMONE OFFSET PRINTING PRESSMEN, TIFFANY 300.00 AN ANXIETY UNSPEC 09/17/2013 SIMONE OFFSET PRINTING PRESSMEN, TIFFANY 300.00 AN ANXIETY UNSPEC 09/17/2013 SIMONE OFFSET PRINTING PRESSMEN, TIFFANY 300.00 AN ANXIETY UNSPEC 09/17/2013 SIMONE OFFSET PRINTING PRESSMEN, TIFFANY 300.00 AN ANXIETY UNSPEC 09/17/2013 SIMONE OFFSET PRINTING PRESSMEN, TIFFANY 300.00 AN ANXIETY UNSPEC 09/17/2013 SIMONE OFFSET PRINTING PRESSMEN, TIFFANY 300.00 AN ANXIETY UNSPEC 09/17/2013 SIMONE OFFSET PRINTING PRESSMEN, TIFFANY 300.00 AN ANXIETY UNSPEC 09/17/2013 SIMONE OFFSET PRINTING PRESSMEN, TIFFANY 300.00 AN ANXIETY UNSPEC 09/17/2013 ANTHONY OFFSET PRINTING PRESSMEN, JUSTIN R 300.00 AN ANXIETY UNSPEC 09/17/2013 ANTHONY OFFSET PRINTING PRESSMEN, JUSTIN R 300.00 AN ANXIETY UNSPEC 09/17/2013 ANTHONY OFFSET PRINTING PRESSMEN, JUSTIN R 300.00 AN ANXIETY UNSPEC 09/17/2013 SIMONE OFFSET PR[employer]ING PRESSMEN, TIFFANY 300.00 AN ANXIETY UNSPEC 11/22/2013 SIMONE [employer] PR[employer]ING PRESSMEN, TIFFANY 295.70 P SCHIZO AFFECTIVE 11/22/2013 ARTURO MASON DO 295.70 P SCHIZO AFFECTIVE 11/22/2013 RADHA PHD, KAMILLA A 295.70 P SCHIZO AFFECTIVE 11/22/2013 SIMONE OFFSET PRINTING PRESSMEN, TIFFANY 295.70 P SCHIZO AFFECTIVE 11/22/2013 SIMONE OFFSET PRINTING PRESSMEN, TIFFANY 295.70 P SCHIZO AFFECTIVE 11/22/2013 SIMONE OFFSET PRINTING PRESSMEN, TIFFANY 295.70 P SCHIZO AFFECTIVE 11/22/2013 SIMONE OFFSET PRINTING PRESSMEN, TIFFANY 295.70 P SCHIZO AFFECTIVE 11/22/2013 SIMONE OFFSET PRINTING PRESSMEN, TIFFANY 295.70 P SCHIZO AFFECTIVE 11/22/2013 SIMONE OFFSET PRINTING PRESSMEN, TIFFANY 295.70 P SCHIZO AFFECTIVE 11/22/2013 SIMONE OFFSET PRINTING PRESSMEN, TIFFANY 295.70 P SCHIZO AFFECTIVE 11/22/2013 SIMONE OFFSET PRINTING PRESSMEN, TIFFANY 295.70 P SCHIZO AFFECTIVE 11/22/2013 SIMONE OFFSET PR[employer]ING PRESSMEN, TIFFANY 295.70 P SCHIZO AFFECTIVE 11/22/2013 ANTHONY OFFSET PRINTING PRESSMEN, JUSTIN R 295.70 P SCHIZO AFFECTIVE 11/22/2013 ANTHONY OFFSET PRINTING PRESSMEN, JUSTIN R 295.70 P SCHIZO AFFECTIVE 11/22/2013 ANTHONY OFFSET PRINTING PRESSMEN, JUSTIN R 295.70 P SCHIZO AFFECTIVE 11/22/2013 SIMONE OFFSET PR[employer]ING PRESSMEN, TIFFANY 295.70 P SCHIZO AFFECTIVE 01/06/2014 SIMONE [employer] PR[employer]ING PRESSMEN, TIFFANY 300.82 SO SOMATOFORM NOS 01/06/2014 SIMONE [employer]SET PRINTING PRESSMEN, TIFFANY 300.9 PSYCHIATRIC DISORDERS 01/06/2014 SIMONE OFF[employer] PR[employer]ING PRESSMEN, TIFFANY 300.82 SO SOMATOFORM NOS 01/06/2014 SIMONE OFFSET PRINTING PRESSMEN, TIFFANY 300.9 PSYCHIATRIC DISORDERS 01/06/2014 SIMONE OFFSET PRINTING PRESSMEN, TIFFANY 300.82 SO SOMATOFORM NOS 01/06/2014 SIMONE OFFSET PRINTING PRESSMEN, TIFFANY 300.9 PSYCHIATRIC DISORDERS 01/06/2014 SIMONE OFFSET PRINTING PRESSMEN, TIFFANY 300.82 SO SOMATOFORM NOS 01/06/2014 SIMONE OFFSET PRINTING PRESSMEN, TIFFANY 300.9 PSYCHIATRIC DISORDERS 01/06/2014 SIMONE OFFSET PRINTING PRESSMEN, TIFFANY 300.82 SO SOMATOFORM NOS 01/06/2014 SIMONE OFFSET PRINTING PRESSMEN, TIFFANY 300.9 PSYCHIATRIC DISORDERS 01/06/2014 SIMONE OFFSET PRINTING PRESSMEN, TIFFANY 300.82 SO SOMATOFORM NOS 01/06/2014 SIMONE OFFSET PRINTING PRESSMEN, TIFFANY 300.9 PSYCHIATRIC DISORDERS 01/06/2014 SIMONE OFFSET PRINTING PRESSMEN, TIFFANY 300.82 SO SOMATOFORM NOS 01/06/2014 SIMONE OFFSET PRINTING PRESSMEN, TIFFANY 300.9 PSYCHIATRIC DISORDERS 01/06/2014 SIMONE OFFSET PRINTING PRESSMEN, TIFFANY 300.82 SO SOMATOFORM NOS 01/06/2014 SIMONE [employer]SET PRINTING PRESSMEN, TIFFANY 300.9 PSYCHIATRIC DISORDERS 01/06/2014 SIMONE [employer] PR[employer]ING PRESSMEN, TIFFANY 300.82 SO SOMATOFORM NOS 01/06/2014 SIMONE [employer]SET PRINTING PRESSMEN, TIFFANY 300.9 PSYCHIATRIC DISORDERS 01/06/2014 ANTHONY OFFSET PRINTING PRESSMEN, JUSTIN R 300.82 SO SOMATOFORM NOS 01/06/2014 ANTHONY OFFSET PRINTING PRESSMEN, JUSTIN R 300.9 PSYCHIATRIC DISORDERS 01/06/2014 ANTHONY OFFSET PRINTING PRESSMEN, JUSTIN R 300.82 SO SOMATOFORM NOS 01/06/2014 ANTHONY OFFSET PRINTING PRESSMEN, JUSTIN R 300.9 PSYCHIATRIC DISORDERS 01/06/2014 ANTHONY OFFSET PRINTING PRESSMEN, JUSTIN R 300.82 SO SOMATOFORM NOS 01/06/2014 ANTHONY OFFSET PRINTING PRESSMEN, JUSTIN R 300.9 PSYCHIATRIC DISORDERS 01/06/2014 SIMONE OFFSET PRINTING PRESSMEN, TIFFANY 300.82 SO SOMATOFORM NOS 01/06/2014 SIMONE OFFSET PRINTING PRESSMEN, TIFFANY 300.9 PSYCHIATRIC DISORDERS 02/06/2014 SIMONE OFFSET PRINTING PRESSMEN, TIFFANY 295.10 P SCHIZO DISORG UNSPECIFIED 02/06/2014 SIMONE [employer] PRINTING PRESSMEN, TIFFANY 295.10 P SCHIZO DISORG UNSPECIFIED 02/06/2014 SIMONE [employer]SET PRINTING PRESSMEN, TIFFANY 295.10 P SCHIZO DISORG UNSPECIFIED 02/06/2014 SIMONE OFFSET PRINTING PRESSMEN, TIFFANY 295.10 P SCHIZO DISORG UNSPECIFIED 02/06/2014 SIMONE OFFSET PRINTING PRESSMEN, TIFFANY 295.10 P SCHIZO DISORG UNSPECIFIED 02/06/2014 SIMONE OFFSET PRINTING PRESSMEN, TIFFANY 295.10 P SCHIZO DISORG UNSPECIFIED 02/06/2014 SIMONE OFFSET PRINTING PRESSMEN, TIFFANY 295.10 P SCHIZO DISORG UNSPECIFIED 02/06/2014 SIMONE [employer]SET PRINTING PRESSMEN, TIFFANY 295.10 P SCHIZO DISORG UNSPECIFIED 02/06/2014 ANTHONY WILKINS JUSTIN R 295.10 P SCHIZO DISORG UNSPECIFIED 02/06/2014 ANTHONY WILKINS, JUSTIN R 295.10 P SCHIZO DISORG UNSPECIFIED 02/06/2014 ANTHONY WILKINS JUSTIN R 295.10 P SCHIZO DISORG UNSPECIFIED 02/06/2014 SIMONE [employer]SET PRINTING PRESSMEN, TIFFANY 295.10 P SCHIZO DISORG UNSPECIFIED 05/23/2014 SIMONE [employer] PRINTING PRESSMEN, TIFFANY 307.42 PERSISTENT DISORDER OF INITIATING OR MAINTAINING SLEEP 05/23/2014 SIMONE [employer]SET PRINTING PRESSMEN, TIFFANY 307.42 PERSISTENT DISORDER OF INITIATING OR MAINTAINING SLEEP 05/23/2014 SIMONE [employer]SET PRINTING PRESSMEN, TIFFANY 307.42 PERSISTENT DISORDER OF INITIATING OR MAINTAINING SLEEP 05/23/2014 ANTHONY WILKINS JUSTIN R 307.42 PERSISTENT DISORDER OF INITIATING OR MAINTAINING SLEEP 05/23/2014 ANTHONY WILKINS JUSTIN R 307.42 PERSISTENT DISORDER OF INITIATING OR MAINTAINING SLEEP 05/23/2014 ANTHONY OFFSET PRINTING PRESSMEN, JUSTIN R 307.42 PERSISTENT DISORDER OF INITIATING OR MAINTAINING SLEEP 05/23/2014 SHIRA NICHOLS APRNETTE 307.42 PERSISTENT DISORDER OF INITIATING OR MAINTAINING SLEEP 07/11/2014 SIMONE WILKINS TIFFANY 300.01 AN PANIC DIS W/O AGORA 07/11/2014 ANTHONY WILKINS, JUSTIN R 300.01 AN PANIC DIS W/O AGORA 07/11/2014 ANTHONY WILKINS, JUSTIN R 300.01 AN PANIC DIS W/O AGORA 07/11/2014 ANTHONY WILKINS, JUSTIN R 300.01 AN PANIC DIS W/O AGORA 07/11/2014 SIMONE WILKINS TIFFANY 300.01 AN PANIC DIS W/O AGORA 08/19/2014 ANTHONY WILKINS, JUSTIN R 724.1 PAIN IN THORACIC SPINE 08/19/2014 ANTHONY WILKINS, JUSTIN R V74.5 STD SCREEN 08/19/2014 ANTHONY WILKINS, JUSTIN R 724.1 PAIN IN THORACIC SPINE 08/19/2014 ANTHONY WILKINS, JUSTIN R V74.5 STD SCREEN 08/19/2014 ANTHONY WILKINS, JUSTIN R 724.1 PAIN IN THORACIC SPINE 08/19/2014 ANTHONY WILKINS, JUSTIN R V74.5 STD SCREEN 08/19/2014 SIMONE WILKINS, TIFFANY 724.1 PAIN IN THORACIC SPINE 08/19/2014 SIMONE WILKINS, TIFFANY V74.5 STD SCREEN 09/11/2014 ANTHONY WILKINS, JUSTIN R 723.1 CERVICALGIA 09/11/2014 ANTHONY WILKINS, JUSTIN R 724.2 LUMBAGO/ LOW BACK PAIN 09/11/2014 ANTHONY WILKINS, JUSTIN R 723.1 CERVICALGIA 09/11/2014 ANTHONY WILKINS, JUSTIN R 724.2 LUMBAGO/ LOW BACK PAIN 09/11/2014 ANTHONY MENDEZN, JUSTIN R 723.1 CERVICALGIA 09/11/2014 ANTHONY WILKINS, JUSTIN R 724.2 LUMBAGO/ LOW BACK PAIN 09/11/2014 SIMONE WILKINS, TIFFANY 723.1 CERVICALGIA 09/11/2014 SIMONE WILKINS, TIFFANY 724.2 LUMBAGO/ LOW BACK PAIN 10/20/2014 Ot 622.12 10/20/2014 Ot V72.63 10/20/2014 Ot V74.8 10/20/2014 MAICOL TORRES, MANJIT Fernandez Ot 242.90 10/24/2014 JUSTIN CRUZ R OFFSET PRINTING PRESSMEN Ot 721.3 10/24/2014 ANTHONY JUSTIN R OFFSET PRINTING PRESSMEN Ot 722.0 11/13/2014 Ot 622.12 11/13/2014 Ot V72.63 11/13/2014 Ot V74.8 11/13/2014 MAICOL TORRES, MANJIT Fernandez Ot 242.90 11/13/2014 JUSTIN CRUZ R OFFSET PRINTING PRESSMEN Ot 721.3 11/13/2014 JUSTIN CRUZ R OFFSET PRINTING PRESSMEN Ot 722.0 11/13/2014 VIOLETA BRYSON MD Ot 295.90 SCHIZOPHRENIA NOS-UNSPEC 11/13/2014 VIOLETA BRYSON MD Ot 300.00 ANXIETY STATE NOS 11/13/2014 VIOLETA RBYSON MD Ot 305.1 TOBACCO USE DISORDER 11/13/2014 VIOLETA BRYSON MD Ot 311 DEPRESSIVE DISORDER NEC 11/13/2014 VIOLETA BRYSON MD Ot 722.0 CERVICAL DISC DISPLACMNT 12/08/2014 JUSTIN CRUZ R OFFSET PRINTING PRESSMEN Ot 721.3 12/08/2014 ANTHONY JUSTIN R OFFSET PRINTING PRESSMEN Ot 722.0 03/10/2015 Ot 622.12 03/10/2015 Ot V72.63 03/10/2015 Ot V74.8 03/10/2015 MAICOL TORRES, MANJIT Fernandez Ot 242.90 03/10/2015 JUSTIN CRUZ R OFFSET PRINTING PRESSMEN Ot 721.3 03/10/2015 JUSTIN CRUZ R OFFSET PRINTING PRESSMEN Ot 722.0 03/20/2015 DEVORAH BANEGAS MEDICAL TECHNICIAN Ot 625.9 03/31/2015 DEVORAH BANEGAS MEDICAL TECHNICIAN Ot 625.9 04/23/2015 Ot 622.12 04/23/2015 Ot V72.63 04/23/2015 Ot V74.8 04/23/2015 MAICOL TORRES, MANJIT Fernandez Ot 242.90 04/23/2015 JUSTIN CRUZ R OFFSET PRINTING PRESSMEN Ot 721.3 04/23/2015 ANTHONY JUSTIN R OFFSET PRINTING PRESSMEN Ot 722.0 04/23/2015 DEVORAH BANEGAS MEDICAL TECHNICIAN Ot 625.9 04/29/2015 VENKAT LOOMIS DO Ot N83.8 OTH NONINFLAMMATORY DISORD OF OVARY, FAL 04/29/2015 LOOMISLea VILLAFUERTE VENKAT Trixie Ot R10.2 PELVIC AND PERINEAL PAIN 04/29/2015 VENKAT LOOMIS DO Ot Z23 ENCOUNTER FOR IMMUNIZATION 04/29/2015 VENKAT LOOMIS DO Ot Z87.410 PERSONAL HISTORY OF CERVICAL DYSPLASIA 05/05/2015 LOOMISLea VILLAFUERTE VENKAT C Ot N80.9 05/05/2015 LOOMISLea VILLAFUERTE VENKAT C Ot Z01.812 05/05/2015 LOOMIS VENKAT Trixie Ot Z11.2 05/02/2016 A 847.0 NECK SPRAIN 05/02/2016 A S16.1XXA STRAIN OF MUSCLE, FASCIA AND TENDON AT NECK LEVEL, INITIAL ENCOUNTER 06/15/2016 Mana Alvares 465.8 ACUTE UPPER RESPIRATORY INFECTIONS OF OTHER MULTIPLE SITES 06/15/2016 Mana Alvares J06.9 ACUTE UPPER RESPIRATORY INFECTION, UNSPECIFIED 07/23/2016 Ot 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 07/23/2016 Ot V72.63 PRE- PROCEDURAL LABORATORY EXAMINATION 07/23/2016 Ot V74.8 SCREEN- BACTERIAL DIS NEC 07/23/2016 MAICOL TORRES, MANJIT Fernandez Ot 242.90 THYROTOX NOS NO CRISIS 07/23/2016 JUSTIN CRUZ [employer] Ot 721.3 LUMBOSACRAL SPONDYLOSIS 07/23/2016 JUSTIN CRUZ [employer] Ot 722.0 CERVICAL DISC DISPLACMNT 07/23/2016 DEVORAH BANEGAS MEDICAL TECHNICIAN Ot 625.9 FEM GENITAL SYMPTOMS NOS 07/23/2016 VLADISLAV VILLAFUERTE VENKAT C Ot N80.9 ENDOMETRIOSIS, UNSPECIFIED 07/23/2016 VENKAT LOOMIS DO Ot Z01.812 ENCOUNTER FOR PREPROCEDURAL LABORATORY E 07/23/2016 VENKAT LOOMIS DO Ot Z11.2 ENCOUNTER FOR SCREENING FOR OTHER BACTER 07/24/2016 LISA TORRES, DERICK Roach Ot F17.210 NICOTINE DEPENDENCE, CIGARETTES, UNCOMPL 07/24/2016 DERICK GONZALEZ MD Ot F20.9 SCHIZOPHRENIA, UNSPECIFIED 07/24/2016 DERICK GONZALEZ MD Ot F23 BRIEF PSYCHOTIC DISORDER 07/24/2016 DERICK GONZALEZ MD Ot Z79.899 OTHER RETIREMENT (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 07/24/2016 DERICK GONZALEZ MD, Ot Z91.14 PATIENT'S OTHER NONCOMPLIANCE WITH MEDIC 07/29/2016 DERICK GONZALEZ MD Ot F17.210 NICOTINE DEPENDENCE, CIGARETTES, UNCOMPL 07/29/2016 DERICK GONZALEZ MD Ot F20.9 SCHIZOPHRENIA, UNSPECIFIED 07/29/2016 DERICK GONZALEZ MD Ot F23 BRIEF PSYCHOTIC DISORDER 07/29/2016 DERICK GONZALEZ MD Ot 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 07/29/2016 DERICK GONZALEZ MD Ot Z91.14 PATIENT'S OTHER NONCOMPLIANCE WITH MEDIC 10/14/2016 Ot 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 10/14/2016 Ot V72.63 PRE- PROCEDURAL LABORATORY EXAMINATION 10/14/2016 Ot V74.8 SCREEN- BACTERIAL DIS NEC 10/14/2016 MAICOL TORRES, MANJIT Fernandez Ot 242.90 THYROTOX NOS NO CRISIS 10/14/2016 JUSTIN CRUZ [employer] Ot 721.3 LUMBOSACRAL SPONDYLOSIS 10/14/2016 JUSTIN CRUZ [employer] Ot 722.0 CERVICAL DISC DISPLACMNT 10/14/2016 DEVORAH BANEGAS MEDICAL TECHNICIAN Ot 625.9 FEM GENITAL SYMPTOMS NOS 10/14/2016 VENKAT LOOMIS DO Ot N80.9 ENDOMETRIOSIS, UNSPECIFIED 10/14/2016 VENKAT LOOMIS DO Ot Z01.812 ENCOUNTER FOR PREPROCEDURAL LABORATORY E 10/14/2016 VENKAT LOOMIS DO Ot Z11.2 ENCOUNTER FOR SCREENING FOR OTHER BACTER 10/19/2016 CHRISTO TORRES, ADELA Mcclellan Ot R10.84 GENERALIZED ABDOMINAL PAIN 10/28/2016 ADELA VILLAFUERTE MD Ot R10.84 GENERALIZED ABDOMINAL PAIN 12/28/2016 Trisha Mcgee W 295.90 UNSPECIFIED SCHIZOPHRENIA, UNSPECIFIED STATE 12/28/2016 Trisha Mcgee A 465.8 ACUTE UPPER RESPIRATORY INFECTIONS OF OTHER MULTIPLE SITES 12/28/2016 Trisha Mcgee W F20.9 SCHIZOPHRENIA, UNSPECIFIED 12/28/2016 Trisha Mcgee J06.9 ACUTE UPPER RESPIRATORY INFECTION, UNSPECIFIED 08/21/2017 CONCETTA LOVING APRN Ot F20.9 SCHIZOPHRENIA, UNSPECIFIED 08/21/2017 CONCETTA LOVING APRN Ot F32.9 MAJOR DEPRESSIVE DISORDER, SINGLE EPISOD 08/21/2017 CONCETTA LOVING APRN Ot F41.9 ANXIETY DISORDER, UNSPECIFIED 08/21/2017 CONCETTA LOVING APRN Ot J45.909 UNSPECIFIED ASTHMA, UNCOMPLICATED 08/21/2017 CONCETTA LOVING APRN Ot L30.9 DERMATITIS, UNSPECIFIED 08/21/2017 CONCETTA LOVING [employer] Ot R21 RASH AND OTHER NONSPECIFIC SKIN ERUPTION 08/21/2017 CONCETTA LOVING APRN Ot Z79.52 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 SALES CONSULTANT (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) USE OF SYSTEMIC STER 08/21/2017 CONCETTA LOVING [employer] Ot Z87.19 PERSONAL HISTORY OF OTHER DISEASES OF TH 08/23/2017 CONCETTA LOVING APRN Ot F20.9 SCHIZOPHRENIA, UNSPECIFIED 08/23/2017 CONCETTA LOVING APRN Ot F32.9 MAJOR DEPRESSIVE DISORDER, SINGLE EPISOD 08/23/2017 CONCETTA LOVING APRN Ot F41.9 ANXIETY DISORDER, UNSPECIFIED 08/23/2017 CONCETTA LOVING APRN Ot J45.909 UNSPECIFIED ASTHMA, UNCOMPLICATED 08/23/2017 CONCETTA LOVING APRN Ot L30.9 DERMATITIS, UNSPECIFIED 08/23/2017 CONCETTA LOVING APRN Ot R21 RASH AND OTHER NONSPECIFIC SKIN ERUPTION 08/23/2017 CONCETTA LOVING APRN Ot Z79.52 RETIREMENT (CURRENT) USE OF SYSTEMIC STER 08/23/2017 CONCETTA LOVING [employer] Ot Z87.19 PERSONAL HISTORY OF OTHER DISEASES OF 10/12/2017 MAICOL TORRES, MANJIT Fernandez Ot 242.90 THYROTOX NOS NO CRISIS 10/12/2017 JUSTIN CRUZ [employer] Ot 721.3 LUMBOSACRAL SPONDYLOSIS 10/12/2017 JUSTIN CRUZ [employer] Ot 722.0 CERVICAL DISC DISPLACMNT 10/12/2017 DEVORAH BANEGAS Ot 625.9 FEM GENITAL SYMPTOMS NOS 10/12/2017 VENKAT LOOMIS DO Ot N80.9 ENDOMETRIOSIS, UNSPECIFIED 10/12/2017 VENKAT LOOMIS DO Ot Z01.812 ENCOUNTER FOR PREPROCEDURAL LABORATORY E 10/12/2017 VENKAT LOOMIS DO Ot Z11.2 ENCOUNTER FOR SCREENING FOR OTHER BACTER 10/12/2017 ADELA VILLAFUERTE MD Ot R10.84 GENERALIZED ABDOMINAL PAIN 11/07/2017 CHRISTO TORRES, ADELA Mcclellan Ot M25.561 PAIN IN RIGHT KNEE 11/07/2017 ADELA VILLAFUERTE MD N Ot M54.2 CERVICALGIA 11/09/2017 ADELA VILLAFUERTE MD N Ot M25.561 PAIN IN RIGHT KNEE 11/09/2017 ADELA VILLAFUERTE MD N Ot M54.2 CERVICALGIA 11/09/2017 ADELA VILLAFUERTE MD N Ot M25.561 PAIN IN RIGHT KNEE 11/09/2017 ADELA VILLAFUERTE MD N Ot M54.2 CERVICALGIA 11/20/2017 ADELA VILLAFUERTE MD N Ot M25.561 PAIN IN RIGHT KNEE 11/20/2017 ADELA VILLAFUERTE MD N Ot M54.2 CERVICALGIA 12/04/2017 ADELA VILLAFUERTE MD N Ot M25.561 PAIN IN RIGHT KNEE 12/04/2017 ADELA VILLAFUERTE MD Ot M54.2 CERVICALGIA 01/11/2018 CHIN RUSH DO Ot B37.2 CANDIDIASIS OF SKIN AND NAIL 01/11/2018 CHIN RUSH DO Ot E11.65 TYPE 2 DIABETES MELLITUS WITH HYPERGLYCE 01/11/2018 CHIN RUSH DO Ot E66.01 MORBID (SEVERE) OBESITY DUE TO EXCESS CA 01/11/2018 CHIN RUSH DO Ot E78.00 PURE HYPERCHOLESTEROLEMIA, UNSPECIFIED 01/11/2018 CHIN RUSH DO Ot E87.8 OTH DISORDERS OF ELECTROLYTE AND FLUID B 01/11/2018 CHIN RUSH DO Ot F12.90 CANNABIS USE, UNSPECIFIED, UNCOMPLICATED 01/11/2018 CHIN RUSH DO Ot F17.210 NICOTINE DEPENDENCE, CIGARETTES, UNCOMPL 01/11/2018 CHIN RUSH DO Ot F20.0 PARANOID SCHIZOPHRENIA 01/11/2018 CHIN RUSH DO Ot F32.9 MAJOR DEPRESSIVE DISORDER, SINGLE EPISOD 01/11/2018 CHIN RUSH DO Ot F41.9 ANXIETY DISORDER, UNSPECIFIED 01/11/2018 CHIN RUSH DO Ot F43.10 POST-TRAUMATIC STRESS DISORDER, UNSPECIF 01/11/2018 CHIN RUSH DO Ot F44.81 DISSOCIATIVE IDENTITY DISORDER 01/11/2018 CHIN RUSH DO Ot F51.5 NIGHTMARE DISORDER 01/11/2018 CHIN RUSH DO Ot F60.3 BORDERLINE PERSONALITY DISORDER 01/11/2018 CHIN RUSH DO Ot J45.909 UNSPECIFIED ASTHMA, UNCOMPLICATED 01/11/2018 CHIN RUSH DO Ot K21.9 GASTRO-ESOPHAGEAL REFLUX DISEASE WITHOUT 01/11/2018 CHIN RUSH DO Ot N28.9 DISORDER OF KIDNEY AND URETER, UNSPECIFI 01/11/2018 CHIN RUSH DO Ot N30.00 ACUTE CYSTITIS WITHOUT HEMATURIA 01/11/2018 CHIN RUSH DO Ot Z68.39 BODY MASS INDEX (BMI) 39.0-39.9, ADULT 01/11/2018 CHIN RUSH DO Ot Z72.89 OTHER PROBLEMS RELATED TO LIFESTYLE 01/11/2018 CHIN RUSH DO Ot Z79.84 TELECOM SALES CONSULTANT (CURRENT) USE OF ORAL HYPOGLYC 01/11/2018 CHIN RUSH DO Ot Z90.710 ACQUIRED ABSENCE OF BOTH CERVIX AND UTER Procedures Code [place] [address] PSYTX PT&/FAMILY 45 MINUTES 09/18/2013 J2426 Invega Sustenna 234 mg/1.5 mL syringe 09/19/2013 89432 PSYCH DIAGNOSTIC EVALUATION 09/30/2013 20234 THERAPUTIC INJ SQ/IM 10/08/2013 93859 THERAPUTIC INJ SQ/IM 11/06/2013 95370 PSYTX PT&/FAMILY 45 MINUTES 11/14/2013 96656 THERAPUTIC INJ SQ/IM 12/06/2013 48367 PSYTX PT&/FAMILY 45 MINUTES 12/18/2013 27558 THERAPUTIC INJ SQ/IM 01/06/2014 88435 THERAPUTIC INJ SQ/IM 01/09/2014 90139 THERAPUTIC INJ SQ/IM 02/06/2014 04113 THERAPUTIC INJ SQ/IM 2014 48702 THERAPUTIC INJ SQ/IM 04/15/2014 80365 THERAPUTIC INJ SQ/IM 05/21/2014 03623 THERAPUTIC INJ SQ/IM 06/27/2014 07190 XRAY CERVICAL SPINE, 2 OR 3 VIEWS 09/11/2014 83764 XRAY LUMBAR SPINE 2 OR 3 VIEWS 09/11/2014 86484 UA W/ CULTURE IF INDICATED 09/11/2014 44051 THERAPUTIC INJ SQ/IM 10/06/2014 Results Test Result Range HCV Antibody - 05/27/16 17:34 Hep C Virus Ab <0.1 s/co ratio 0.0-0.9 Genital Culture, Routine - 05/27/16 17:34 Genital Culture, Routine Note Lipid Panel - 06/02/16 10:27 Cholesterol, Total 188 mg/dL 100-199 Triglycerides 77 mg/dL 0-149 HDL Cholesterol 64 mg/dL >39 VLDL Cholesterol Sim 15 mg/dL 5-40 LDL Cholesterol Calc 109 mg/dL 0-99 Complete urinalysis with reflex to culture - [...] Blood erythrocyte morphology finding identification NORMAL NRG TSH+Free T4 - 08/25/16 10:07 TSH 1.500 uIU/mL 0.450-4.500 T4,Free(Direct) 1.12 ng/dL 0.82-1.77 CBC With Differential/Platelet - 10/12/16 10:31 WBC 9.4 x10E3/uL 3.4-10.8 RBC 4.51 x10E6/uL 3.77-5.28 Hemoglobin 13.9 g/dL 11.1-15.9 Hematocrit 40.3 % 34.0-46.6 MCV 89 fL 79-97 MCH 30.8 pg 26.6-33.0 MCHC 34.5 g/dL 31.5-35.7 RDW 12.9 % 12.3-15.4 Platelets 319 x10E3/uL 150-379 Neutrophils 63 % Lymphs 28 % Monocytes 8 % Eos 1 % Basos 0 % Neutrophils (Absolute) 5.9 x10E3/uL 1.4-7.0 Lymphs (Absolute) 2.7 x10E3/uL 0.7-3.1 Monocytes(Absolute) 0.7 x10E3/uL 0.1-0.9 Eos (Absolute) 0.1 x10E3/uL 0.0-0.4 Baso (Absolute) 0.0 x10E3/uL 0.0-0.2 Immature Granulocytes 0 % Immature Grans (Abs) 0.0 x10E3/uL 0.0-0.1 Comp. Metabolic Panel (14) - 10/12/16 10:31 Glucose, Serum 96 mg/dL 65-99 BUN 9 mg/dL 6-20 Creatinine, Serum 0.90 mg/dL 0.57-1.00 eGFR If NonAfricn Am 87 mL/min/1.73 >59 eGFR If Africn Am 100 mL/min/1.73 >59 BUN/Creatinine Ratio 10 9-23 Sodium, Serum 141 mmol/L 134-144 Potassium, Serum 5.1 mmol/L 3.5-5.2 Chloride, Serum 102 mmol/L 96-106 Carbon Dioxide, Total 23 mmol/L 18-29 Calcium, Serum 9.9 mg/dL 8.7-10.2 Protein, Total, Serum 6.9 g/dL 6.0-8.5 Albumin, Serum 4.6 g/dL 3.5-5.5 Globulin, Total 2.3 g/dL 1.5-4.5 A/G Ratio 2.0 1.2-2.2 Bilirubin, Total 0.3 mg/dL 0.0-1.2 Alkaline Phosphatase, S 65 IU/L 39-117 AST (SGOT) 13 IU/L 0-40 ALT (SGPT) 13 IU/L 0-32 Lipase, Serum - 10/12/16 10:31 Lipase, Serum 26 U/L 0-59 Thyroid Stimulating Hormone - 12/28/16 14:50 TSH 1.02 mIU/mL 0.32-5.00 Rapid Drug Screen,Medical - 12/28/16 14:50 Amphetamine NEGATIVE NEGATIVE Barbiturates NEGATIVE NEGATIVE Benzodiazepines NEGATIVE NEGATIVE Cocaine NEGATIVE NEGATIVE Marijuana POSITIVE NEGATIVE Methylenedioxymethamphetamine NEGATIVE NEGATIVE Opiates NEGATIVE NEGATIVE Oxycodone NEGATIVE NEGATIVE Phencyclidine NEGATIVE NEGATIVE Propoxyphene NEGATIVE NEGATIVE Tricyclic Antidepressant NEGATIVE NEGATIVE Urinalysis - 12/28/16 14:50 Icotest N/A Negative Urine Volume Urine Volume Sufficient (10mL) Urine Yeast No Yeast present Urine-Appearance Slightly Cloudy Clear Urine-Bacteria Trace Urine-Bilirubin Negative Negative Urine-Blood Negative Negative Urine-Color Yellow Colorless-Lt. Yellow Urine-Epithelial Cells TNTC Urine-Glucose Negative Negative Urine-Ketones Trace Negative Urine-Leukocytes Negative Negative Urine-Mucus 1+ Urine-Nitrite Negative Negative Urine-Other Urine Saved if Culture Needed (48hrs from time of collection) Urine-pH 6.0 5-8.5 Urine-Protein Negative Negative Urine-RBC Negative Urine-Specific [place] 1.025 1.000-1.030 Urine-WBC Nothing Seen on Microscopic Urobilinogen 1.0 E.U./dL 0.2-1.0 Complete urinalysis with reflex to culture - 01/10/18 21:47 Urine color determination YELLOW NRG Urine clarity determination CLEAR NRG Urine pH measurement by test strip 6 5-9 Specific gravity of urine by test strip 1.020 1.016- 1.022 Urine protein assay by test strip, semi-quantitative NEGATIVE NEGATIVE Urine glucose detection by automated test strip 4+ NEGATIVE Erythrocytes detection in urine sediment by [...] count by microscopy (number/high power field ) RARE NRG Bacteria detection in urine sediment by light microscopy NEGATIVE NRG Squamous epithelial cells detection in urine sediment by light microscopy 0-2 NRG Crystals detection in urine sediment by light microscopy NONE NRG Casts detection in urine sediment by light microscopy NONE NRG Mucus detection in urine sediment by light microscopy NEGATIVE NRG Complete urinalysis with reflex to culture NO NRG Complete blood count (CBC) with automated white blood cell (WBC) differential - 01/10/18 22:30 Blood leukocytes automated count (number/volume) 14.5 10*3/uL 4.3-11.0 Blood erythrocytes automated count (number/volume) 4.17 10*6/uL 4.35-5.85 Venous blood hemoglobin measurement (mass/volume) 13.7 g/dL 11.5-16.0 Blood hematocrit (volume fraction) 36 % 35-52 Automated erythrocyte mean corpuscular volume 87 [foz_us] 80-99 Automated erythrocyte mean corpuscular hemoglobin (mass per erythrocyte) 33 pg 25-34 Automated erythrocyte mean corpuscular hemoglobin concentration measurement ( mass/volume) 38 g/dL 32-36 Automated erythrocyte distribution width ratio 11.7 % 10.0-14.5 Automated blood platelet count (count/volume) 302 10*3/uL 130-400 Automated blood platelet mean volume measurement 9.5 [foz_us] 7.4-10.4 Automated blood neutrophils/100 leukocytes 58 % 42-75 Automated blood lymphocytes/100 leukocytes 31 % 12-44 Blood monocytes/100 leukocytes 9 % 0-12 Automated blood eosinophils/100 leukocytes 2 % 0-10 Automated blood basophils/100 leukocytes 0 % 0-10 Blood neutrophils automated count (number/volume) 8.4 10*3 1.8-7.8 Blood lymphocytes automated count (number/volume) 4.4 10*3 1.0-4.0 Blood monocytes automated count (number/volume) 1.3 10*3 0.0-1.0 Automated eosinophil count 0.3 10*3/uL 0.0-0.3 Automated blood basophil count (count/volume) 0.0 10*3/uL 0.0-0.1 Comprehensive metabolic panel - 01/10/18 22:30 Serum or plasma sodium measurement (moles/volume) 132 mmol/L 135-145 Serum or plasma potassium measurement (moles/volume) 4.0 mmol/L 3.6-5.0 Serum or plasma chloride measurement (moles/volume) 96 mmol/L 98-107 Carbon dioxide 21 mmol/L 21-32 Serum or plasma anion gap determination (moles/volume) 15 mmol/L 5-14 Serum or plasma urea nitrogen measurement (mass/volume) 14 mg/dL 7-18 Serum or plasma creatinine measurement (mass/volume) 1.34 mg/dL 0.60-1.30 Serum or plasma urea nitrogen/creatinine mass ratio 10 NRG Serum or plasma creatinine measurement with calculation of estimated glomerular filtration rate 46 NRG Serum or plasma glucose measurement (mass/volume) 504 mg/dL 70-105 Serum or plasma calcium measurement (mass/volume) 9.6 mg/dL 8.5-10.1 Serum or plasma total bilirubin measurement (mass/volume) 0.3 mg/dL 0.1-1.0 Serum or plasma alkaline phosphatase measurement (enzymatic activity/volume) 98 U/L 40-136 Serum or plasma aspartate aminotransferase measurement (enzymatic activity/ volume) 11 U/L 5-34 Serum or plasma alanine aminotransferase measurement (enzymatic activity/volume ) 27 U/L 0-55 Serum or plasma protein measurement (mass/volume) 7.5 g/dL 6.4-8.2 Serum or plasma albumin measurement (mass/volume) 4.4 g/dL 3.2-4.5 Magnesium - 01/10/18 22:30 Magnesium 2.0 mg/dL 1.8-2.4 Serum or plasma amylase measurement (enzymatic activity/volume) - 01/10/18 22: 30 Serum or plasma amylase measurement (enzymatic activity/volume) 37 U /L 25-125 Lipase - 01/10/18 22:30 Lipase 51 U/L 8-78 Blood manual differential performed detection - 01/10/18 22:30 Blood monocytes/100 leukocytes 1 % NRG Manual blood segmented neutrophils/100 leukocytes 74 % NRG Blood band neutrophils/100 leukocytes 0 % NRG Manual blood lymphocytes/100 leukocytes 23 % NRG Manual eosinophils/100 leukocytes in nose 2 % NRG Manual blood basophils/100 leukocytes 0 % NRG Blood erythrocyte morphology finding identification NORMAL NRG [id number] - 01/10/18 22:30 [id number] 58.8 ug/mL 50.0-100.0 Serum or plasma thyrotropin measurement by detection limit <=0.05 miu/l (units/ volume) - 01/10/18 22:30 Serum or plasma thyrotropin measurement by detection limit <=0.05 miu/l (units/ volume) 3.22 u[iU]/mL 0.35-4.94 Capillary blood glucose measurement by glucometer (mass/volume) - 01/10/18 22: 36 Capillary blood glucose measurement by glucometer (mass/volume) 480 mg/dL 70-110 Capillary blood glucose measurement by glucometer (mass/volume) - 01/10/18 23: 55 Capillary blood glucose measurement by glucometer (mass/volume) 415 mg/dL 70-110 Capillary blood glucose measurement by glucometer (mass/volume) - 01/11/18 04: 14 Capillary blood glucose measurement by glucometer (mass/volume) 315 mg/dL 70-110 Capillary blood glucose measurement by glucometer (mass/volume) - 01/11/18 08: 36 Capillary blood glucose measurement by glucometer (mass/volume) 247 mg/dL 70-110 Automated blood complete blood count (hemogram) panel - 01/11/18 11:09 Blood leukocytes automated count (number/volume) 9.6 10*3/uL 4.3-11.0 Blood erythrocytes automated count (number/volume) 3.87 10*6/uL 4.35-5.85 Venous blood hemoglobin measurement (mass/volume) 12.8 g/dL 11.5-16.0 Blood hematocrit (volume fraction) 34 % 35-52 Automated erythrocyte mean corpuscular volume 88 [foz_us] 80-99 Automated erythrocyte mean corpuscular hemoglobin (mass per erythrocyte) 33 pg 25-34 Automated erythrocyte mean corpuscular hemoglobin concentration measurement ( mass/volume) 37 g/dL 32-36 Automated erythrocyte distribution width ratio 11.6 % 10.0-14.5 Automated blood platelet count (count/volume) 252 10*3/uL 130-400 Automated blood platelet mean volume measurement 9.2 [foz_us] 7.4-10.4 Comprehensive metabolic panel - 01/11/18 11:09 Serum or plasma sodium measurement (moles/volume) 136 mmol/L 135-145 Serum or plasma potassium measurement (moles/volume) 3.8 mmol/L 3.6-5.0 Serum or plasma chloride measurement (moles/volume) 106 mmol/L 98-107 Carbon dioxide 20 mmol/L 21-32 Serum or plasma anion gap determination (moles/volume) 10 mmol/L 5-14 Serum or plasma urea nitrogen measurement (mass/volume) 14 mg/dL 7-18 Serum or plasma creatinine measurement (mass/volume) 0.91 mg/dL 0.60-1.30 Serum or plasma urea nitrogen/creatinine mass ratio 15 NRG Serum or plasma creatinine measurement with calculation of estimated glomerular filtration rate > NRG Serum or plasma glucose measurement (mass/volume) 252 mg/dL 70-105 Serum or plasma calcium measurement (mass/volume) 8.5 mg/dL 8.5-10.1 Serum or plasma total bilirubin measurement (mass/volume) 0.2 mg/dL 0.1-1.0 Serum or plasma alkaline phosphatase measurement (enzymatic activity/volume) 70 U/L 40-136 Serum or plasma aspartate aminotransferase measurement (enzymatic activity/ volume) 12 U/L 5-34 Serum or plasma alanine aminotransferase measurement (enzymatic activity/volume ) 21 U/L 0-55 Serum or plasma protein measurement (mass/volume) 6.2 g/dL 6.4-8.2 Serum or plasma albumin measurement (mass/volume) 3.8 g/dL 3.2-4.5 Capillary blood glucose measurement by glucometer (mass/volume) - 01/11/18 12: 28 Capillary blood glucose measurement by glucometer (mass/volume) 273 mg/dL 70-110 Encounters ACCT No. Visit Date/Time Discharge Status Pt. Type Provider Facility Loc./Unit Complaint [id number] 10/14/2014 09:01:00 10/14/2014 23:59:59 [facility] Outpatient TIFFANY NICHOLS APRN [id number] 10/06/2014 15:00:00 10/06/2014 23:59:59 [facility] Outpatient JUSTIN CRUZ APRN [id number] 09/11/2014 11:46:00 09/11/2014 23:59:59 [facility] Outpatient JUSTIN CRUZ APRN [id number] 09/11/2014 11:46:00 09/11/2014 23:59:59 CLS Outpatient JUSTIN CRUZ APRN [id number] 07/11/2014 10:31:00 07/11/2014 23:59:59 [facility] Outpatient TIFFANY NICHOLS APRN [id number] 07/11/2014 10:31:00 07/11/2014 23:59:59 CLS Outpatient TIFFANY NICHOLS APRN [id number] 06/27/2014 15:39:00 06/27/2014 23:59:59 [facility] Outpatient TIFFANY NICHOLS APRN [id number] 05/23/2014 10:15:00 05/23/2014 23:59:59 CLS Outpatient [employer], TIFFANY [id number] 05/21/2014 12:43:00 05/21/2014 23:59:59 CLS Outpatient [employer], TIFFANY [id number] 04/15/2014 10:13:00 04/15/2014 23:59:59 CLS Outpatient [employer], TIFFANY [id number] 2014 11:45:00 2014 23:59:59 CLS Outpatient [employer], TIFFANY [id number] 2014 11:45:00 2014 23:59:59 CLS Outpatient [employer], TIFFANY [id number] 02/06/2014 10:11:00 02/06/2014 23:59:59 CLS Outpatient [employer], TIFFANY [id number] 01/06/2014 12:44:00 01/06/2014 23:59:59 CLS Outpatient [employer], TIFFANY [id number] 12/17/2013 13:46:00 12/17/2013 23:59:59 CLS Outpatient KAMILLA GARCIA PHD [id number] 12/06/2013 13:29:00 12/06/2013 23:59:59 CLS Outpatient ARTURO MASON DO [place] [id number] 11/22/2013 13:41:00 11/22/2013 23:59:59 CLS Outpatient [employer], TIFFANY [id number] 11/13/2013 14:50:00 11/13/2013 23:59:59 CLS Outpatient KAMILLA GARCIA PHD [id number] 11/06/2013 14:50:00 11/06/2013 23:59:59 CLS Outpatient LANDRY MA MD [id number] 10/08/2013 12:25:00 10/08/2013 23:59:59 CLS Outpatient LANDRY MA MD [id number] 09/19/2013 15:06:00 09/19/2013 23:59:59 CLS Outpatient [employer]ANY [id number] 09/19/2013 00:00:00 09/19/2013 23:59:59 CLS Outpatient [employer], TIFFANY [id number] 09/17/2013 15:53:00 09/17/2013 23:59:59 CLS Outpatient KAMILLA GARCIA PHD [id number] 09/11/2013 08:49:00 09/11/2013 23:59:59 CLS Outpatient ADELA VILLAFUERTE MD [id number] 07/16/2013 09:35:00 07/16/2013 23:59:59 CLS Outpatient CHRISTIANO PERALES APRN [id number] 02/07/2012 14:56:00 02/07/2012 23:59:59 CLS Outpatient ROSALVA LOVE DDS N [id number] 02/07/2012 14:56:00 02/07/2012 23:59:59 CLS Outpatient [id number] 01/10/2018 23:15:00 01/11/2018 13:45:00 DIS Outpatient CHIN RUSH DO [facility] 4TH NEW DX OF DIABETES [id number] 11/27/2017 13:15:00 12/05/2017 15:34:00 DIS Outpatient ADELA VILLAFUERTE MD [facility] REHAB R KNEE PAIN, NECK PAIN [id number] 08/21/2017 17:26:00 08/21/2017 18:00:00 DIS Emergency CONCETTA LOVING APRN [facility] ER LEFT HAND WOUND [id number] 02/24/2017 09:20:00 02/24/2017 23:59:59 CLS Preadmit ADELA VILLAFUERTE MD [facility] RAD M50.20 [id number] 10/18/2016 07:59:00 10/18/2016 23:59:59 CLS Outpatient ADELA VILLAFUERTE MD [facility] RAD R10.84 GENERALIZED ABDOMINAL PAIN [id number] 07/23/2016 21:27:00 07/24/2016 04:10:00 DIS Emergency DERICK GONZALEZ MD [facility] ER MIGRAINE, ALTERED MENTAL STATUS [id number] 04/28/2015 08:25:00 04/29/2015 09:35:00 DIS Outpatient VENKAT LOOMIS DO [facility] CCP,ENDOMETRIOSIS [id number] 04/23/2015 08:00:00 04/23/2015 23:59:59 CLS Outpatient VENKAT LOOMIS DO [facility] PREOP CRONIC PELVIC PAIN, ENDOMETRIOSIS [id number] 03/10/2015 12:33:00 03/10/2015 23:59:59 CLS Outpatient DEVORAH BANEGASP [facility] RAD PELVIC PAIN [id number] 11/13/2014 10:55:00 11/13/2014 12:43:00 DIS Emergency ADELAIDE TORRES, VIOLETA Cavazos [facility] ER NECK/BACK PAIN [id number] 10/23/2014 12:17:00 10/23/2014 23:59:59 CLS Outpatient JUSTIN CRUZ APRN [facility] RAD NECK PAIN, LUMBAGO W/ SCIATICA [id number] 01/01/2013 12:11:00 01/01/2013 23:59:59 CLS Outpatient MANJIT MILIAN MD [facility] RAD HYPERTHROIDISM [id number] 09/16/2012 11:15:00 Document Registration [id number] 02/14/2012 05:52:00 Document Registration [id number] 02/08/2012 13:33:00 Document Registration [id number] 06/03/2016 10:05:00 Document Registration [email or web address] 03/10/2015 12:33:28 [place] Document Registration [id number] 12/28/2016 14:45:00 Document Registration [id number] 08/26/2016 09:11:00 Document Registration [id number] 10/13/2016 08:46:00 Document Registration [id number] 05/30/2016 13:05:00 Document Registration [id number] 01/12/2018 11:40:00 01/12/2018 23:59:59 CLS Outpatient ADELA VILLAFUERTE MD [facility] [id number] 12/28/2016 14:45:00 12/28/2016 16:00:00 DIS Outpatient Trisha Mcgee [facility] ER [id number] 06/15/2016 07:30:00 06/15/2016 08:17:00 DIS Outpatient Mana Alvares [facility] ER [id number] 05/01/2016 23:35:00 Document Registration
== END 2018-01-11 13:45 | disposition home or self-care (01) ==
LOC: EDUNIT# 21:44 → ER 21:45 → 4TH 21:46 → UNDOADMIN 23:15 → UNDODISIN 01-11 13:45
PROVIDERS: ADMIT Internal Medicine; ATTEND Internal Medicine
DX: E11.65 Type 2 diabetes mellitus with hyperglycemia (principal); E87.8 Other disorders of electrolyte and fluid balance, not elsewhere classified; N28.9 Disorder of kidney and ureter, unspecified; F20.0 Paranoid schizophrenia; F44.81 Dissociative identity disorder; N30.00 Acute cystitis without hematuria; E66.01 Morbid (severe) obesity due to excess calories; Z68.39 Body mass index [BMI] 39.0-39.9, adult; F60.3 Borderline personality disorder; F51.5 Nightmare disorder; F32.9 Major depressive disorder, single episode, unspecified; F43.10 Post-traumatic stress disorder, unspecified; F41.9 Anxiety disorder, unspecified; F12.90 Cannabis use, unspecified, uncomplicated; K21.9 Gastro-esophageal reflux disease without esophagitis; F17.210 Nicotine dependence, cigarettes, uncomplicated; E78.00 Pure hypercholesterolemia, unspecified; J45.909 Unspecified asthma, uncomplicated; B37.2 Candidiasis of skin and nail; Z72.89 Other problems related to lifestyle; Z90.710 Acquired absence of both cervix and uterus; Z79.84 Long term (current) use of oral hypoglycemic drugs
CPT/HCPCS: 36415; 80053; 80164; 81000; 82150; 82962; 83690; 83735; 84443; 85007; 85027; 93041; 96361; 96374; G0378

== ENCOUNTER → 2018-05-28 | Outpatient (CLI) | payer MEDICAID ==
[~2018-05-28] MED LIST changes: +ATOR40TA70 PO; +DIVA250T12 PO; +DIVA500T15 PO; +HALO10TA PO; +HALO5TAB PO; +HYDR-700 PO; +INSU100I14 SQ; +INSU100I29 SQ; +METF-478 PO; +NEED-474 MC; +PALI9TAB4 PO; +RANI150C4 PO; +TERC45CR4; +TERC45CR4 TOP; +TR025C15; +TR025C15 TOP; +TRAZ150T72 PO
--- NOTE | 2018-05-28 17:37 | Diagnostic Imaging Report ---
PROCEDURE: MR imaging cervical spine without contrast. INDICATION: Chronic neck pain. TECHNIQUE: Multiplanar, multisequence MR imaging of the cervical spine was performed without contrast. CORRELATION STUDY: 10/23/2014 FINDINGS: Cervical spine alignment anatomic. Cervical vertebral body heights are maintained. Odontoid intact. Craniocervical junction unremarkable. The cord is of normal caliber and signal intensity. C2-C3 level: Unremarkable. C3-C4 level: Unremarkable. C4-C5 level: Unremarkable. C5-C6 level: Unremarkable. C6-C7 level: There is again seen broad-based disc bulge. There is some flattening of the ventral thecal sac. AP dimension of the spinal canal at 9 mm. No significant mass effect or displacement of the cord. Foramina without significant stenosis. C7-T1 level: Unremarkable. IMPRESSION: 1. Broad based disc bulge at C6-C7 level with slight flattening of the ventral thecal sac and very mild narrowing of AP dimension of the spinal canal. No significant mass effect upon the cord. Findings relatively stable from prior imaging. Dictated by: Dictated on workstation # [id number]
== END ==
LOC: RAD 16:11
PROVIDERS: ATTEND Nurse Practitioner Primary Care
DX: M48.02 Spinal stenosis, cervical region (principal); M50.20 Other cervical disc displacement, unspecified cervical region
CPT/HCPCS: 72141

== ENCOUNTER 2018-08-13 18:07 | Emergency (ER) | payer MEDICAID ==
[~2018-08-13] VITALS: Ht 157.5 cm; Wt 117.9 kg
--- OUTSIDE RECORDS SUMMARY | 2018-08-13 18:13 | XMS REPORT ---
Author Author CHAS OLIVIER [facility] Address [address] [place] [address] Care Team Providers Care Client Delivery Specialist Name Role Phone CHAS OLIVIER Unavailable PROBLEMS Type Condition ICD9-CM Code HGG61-OH Code Onset Dates Condition Status SNOMED Code Problem Mild intermittent asthma, uncomplicated J45.20 Active 053793922 Problem Schizoaffective disorder, bipolar type F25.0 Active 54781563 Problem Generalized anxiety disorder F41.1 Active 24113813 Problem Type 2 diabetes mellitus with hyperglycemia E11.65 Active 20670089 Problem jail 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 Active 448377996 Problem Hand eczema L30.9 Active 392358172 Problem Other chronic pain G89.29 Active 22511483 Problem Gastroesophageal reflux disease, esophagitis presence not specified K21.9 Active 680987551 Problem Bulging of cervical intervertebral disc M50.20 Active 803506484 Problem Hypothyroidism E03.9 Active 40409121 Problem Bulge of cervical disc without myelopathy M50.20 Active 793451848 Problem Lumbar facet arthropathy M46.96 Active 614339197 Problem Cervical dysplasia N87.9 Active 04380530 Problem Hypertriglyceridemia E78.1 Active 047708980 ALLERGIES No Information ENCOUNTERS Encounter Location Date Diagnosis [facility] [id number] [place] [address] 75060- 4176 May, [facility] [address], [place] [address] 7591 May, [facility] [id number] [place] [address] 30062- 5513 May, [facility] [id number] [place] [address] 14832- 5843 Apr, [facility] [id number] [place] [address] 83965- 0981 Apr, Pain in left shoulder M25.512 [facility] [place] [id number] [place] [address] 14448- 4867 Apr, Pain in left shoulder M25.512 and Type 2 diabetes mellitus without complication, without long-term current use of insulin E11.9 [facility] [id number] [place] [address] 15334- 3807 Apr, [facility] [address] 81328- 2490 Apr, Bulging of cervical intervertebral disc M50.20 and Cervicalgia M54.2 [facility] [id number] [place] [address] 79350- 7487 Apr, Type 2 diabetes mellitus with hyperglycemia E11.65 [facility] [id number] [place] [address] 77405- 6475 Apr, Neck pain M54.2 ; Bulging of cervical intervertebral disc M50.20 ; Pain in left shoulder M25.512 ; Other chronic pain G89.29 ; 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 smoking cessation counseling Z71.6 and Type 2 diabetes mellitus with hyperglycemia E11.65 [facility] [id number] [place] [address] 65736- 2021 Mar, [facility] [id number] [place] [address] 89775- 1683 Mar, Diarrhea, unspecified type R19.7 and Type 2 diabetes mellitus without complication, without long-term current use of insulin E11.9 [facility] [id number] [place] [address] 20064 -8260 Mar, Sore throat J02.9 and Nausea R11.0 [facility] [id number] [place] [address] 72376- 5474 Mar, [facility] [id number] [place] [address] 60123- 0369 Feb, [facility] [address] [address] 8512 Feb, Type 2 diabetes mellitus with hyperglycemia E11.65 and jail 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 [facility] [id number] [place] [address] 19277- 8255 Feb, Type 2 diabetes mellitus without complication, without long- term current use of insulin E11.9 ; Hypertriglyceridemia E78.1 and Gastroesophageal reflux disease, esophagitis presence not specified K21.9 [facility] [id number] [address]- 7165 Feb, [facility] [id number] [place] [address] 94685- 2687 Jan, [facility] [id number] [place] [address] 68100- 0490 Jan, Type 2 diabetes mellitus without complication, without long- term current use of insulin E11.9 [facility] [place] [id number] [place] [address] 61623- 8043 Dec, [facility] [place] [id number] [place] [address] 33317- 2377 Dec, [facility] [place] [id number] [place] [address] 28946- 5191 Dec, Type 2 diabetes mellitus without complications E11.9 ; 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 and BMI 40.0-44.9, adult Z68.41 [facility] [facility] [address], [place] [address]- 9335 Dec, Type 2 diabetes mellitus without complication, without long- term current use of insulin E11.9 [facility] [address], [place] [address]- 2493 Dec, [facility] [address], [place] [address]- 1449 Dec, Type 2 diabetes mellitus without complication, without long- term current use of insulin E11.9 [facility] [id number] [place] [address] 60603- 0850 Dec, Type 2 diabetes mellitus without complication, without long- term current use of insulin E11.9 ; Gastroesophageal reflux disease, esophagitis presence not specified K21.9 and BMI 40.0-44.9, adult Z68.41 [facility] [place] [id number] [place] [address] 88797- 6721 Dec, [facility] [address] [id number] October, Dental examination Z01.20 [place] [address] 51419- 7248 Sep, [facility] [address] 92936- 1035 Sep, Hypertriglyceridemia E78.1 [place] [id number] [place] [address] 47453- 4982 Sep, Hypothyroidism E03.9 ; Prediabetes R73.09 ; Mild intermittent asthma, uncomplicated J45.20 ; Bulge of cervical disc without myelopathy M50.20 ; Other chronic pain G89.29 ; Hand eczema L30.9 ; Right anterior knee pain M25.561 ; Hypertriglyceridemia E78.1 and BMI 40.0-44.9, adult Z68.41 [facility] [id number] [place] [address] 29116- 5564 Sep, [facility] [id number] [place] [address] 45784- 1871 Sep, [facility] [id number] [place] [address] 03235- 6483 Jul, [facility] [facility] [address] 41407- 8922 May, Acute non-recurrent maxillary sinusitis J01.00 [facility] [id number] [place] [address] 62386 -5698 Mar, Other viral agents as the cause of diseases classified elsewhere B97.89 and Acute upper respiratory infection, unspecified J06.9 [facility] [id number] [place] [address] 90496- 7245 Mar, [facility] [address] 71726- 0686 Mar, Neck pain M54.2 [facility] [address] 50490- 1630 Feb, Bulge of cervical disc without myelopathy M50.20 [place] [address] 66547- 3776 Feb, Neck pain M54.2 [place] [address] 37370- 4518 Feb, [facility] [address] 17176- 8086 Feb, Bulge of cervical disc without myelopathy M50.20 ; Hypertriglyceridemia E78.1 ; Hand eczema L30.9 and Hypothyroidism E03.9 [facility] [id number] [place] [address] 51974- 9971 Jan, [facility] [address] [id number] October, 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 dental examination Z01.20 [place] [id number] [place] [address] 05646- 8440 Sep, Generalized abdominal pain R10.84 [facility] [id number] [place] [address] 92236- 0263 Sep, Schizoaffective disorder, bipolar type F25.0 and Generalized anxiety disorder F41.1 [facility] [id number] [place] [address] 73935 -0684 Sep, [facility] [id number] [place] [address] 57211 -2949 Sep, Vaginal burning N94.9 and Vaginal mitzi B37.3 [facility] [address] 10589 -4614 Sep, Gastroenteritis K52.9 [facility] [address] 58455 -1831 Sep, Thrush B37.0 [facility] [address] 44364 -2017 Sep, Pharyngitis due to other organism J02.[address] 39017- 5542 Sep, [facility] [address] 81466 -6495 Aug, Cervicalgia M54.[address] 20806- 8559 Aug, Hypothyroidism E03.9 ; Dry skin L85.3 ; Plantar fasciitis, bilateral M72.2 and Other chronic pain G89.29 [facility] [address] 61997 -7595 Aug, Abrasion T14.8 [facility] [address] [id number] Aug, Dental examination Z01.20 [facility] [address] 55594 -8364 Aug, Excessive cerumen in right ear canal H61.21 ; Impacted cerumen of both ears 380.4 and Bronchitis J40 [facility] [address] 25763 -9678 Jul, Bilateral impacted cerumen H61.23 and Acute non-recurrent frontal sinusitis J01.10 [place] [address] 26182- 4034 May, Schizoaffective disorder, bipolar type F25.0 and Generalized anxiety disorder F41.1 [facility] [id number] [place] [address] 71787- 5448 May, [facility] [address] 48464- 3658 May, Cervicalgia M54.2 and Hypertriglyceridemia E78.1 [facility] [address] 70450- 9845 May, [facility] [address] 81489- 4567 May, STD exposure Z20.2 and Well woman exam Z01.419 [facility] [address] 98843- 4358 May, [facility] [address] 92256- 3572 Mar, [facility] [address] 95906- 9205 Dec, Pain in left knee M25.562 [facility] [id number] [place] [address] 66316- 2092 Dec, [facility] [id number] [place] [address] 89657- 7266 Nov, [facility] [id number] [place] [address] 82081- 7859 October, [facility] [id number] [place] [address] 18250- 7340 Aug, [facility] [id number] [place] [address] 63774- 4901 Jul, [facility] [id number] [place] [address] 47170- 5120 Jul, [facility] [id number] [place] [address] 11375- 1705 Jul, Plantar fasciitis M72.2 and 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 [facility] [id number] [place] [address] 60856- 9291 Jul, [facility] [id number] [place] [address] 40513- 2280 Jun, Plantar fasciitis M72.2 and Physical exam Z00.00 [facility] [id number] [place] [address] 20707- 9709 Jun, [facility] [id number] [place] [address] 81241- 7677 Jun, [facility] [address] 96873- 2916 Jun, [facility] [id number] [place] [address] 00378- 2107 May, [facility] [address] 38620- 7702 May, Hypertriglyceridemia E78.1 [facility] [id number] [place] [address] 01365- 9494 16 May, 2015 Hypothyroidism E03.9 ; Prediabetes R73.09 and Hypertriglyceridemia E78.1 [facility] [id number] [place] [address] 78848- 3968 11 May, 2015 [place] [id number] [place] [address] 97881- 9836 May, [facility] [id number] [place] [address] 05808- 9355 May, Hypothyroidism E03.9 ; Prediabetes R73.09 and Hypertriglyceridemia E78.1 [facility] [id number] [place] [address] 80383- 5245 Apr, Schizoaffective disorder, bipolar type F25.0 [facility] [id number] [place] [address] 25975- 6711 Mar, [facility] [address], [place] [address]- 6828 Mar, [facility] [id number] [place] [address] 31397- 4396 Mar, [facility] [id number] [place] [address] 27978- 6429 Feb, [facility] [id number] [place] [address] 31410- 2011 Feb, [facility] [id number] [place] [address] 15982- 3523 16 Feb, 2015 [facility] [id number] [place] [address] 41072- 0099 Feb, Screen for STD (sexually transmitted disease) V74.5 ; Counseling on other sexually transmitted diseases V65.45 ; Back pain 724.5 ; Contact with or exposure to venereal diseases V01.6 and Pelvic pain in female 625.9 [facility] [id number] [place] [address] 55527- 2981 Feb, Schizoaffective disorder, unspecified 295.70 and Anxiety state, unspecified 300.00 [facility] [id number] [place] [address] 65771- 2837 Feb, [facility] [id number] [place] [address] 40259- 4590 Feb, [facility] [id number] [place] [address] 02118- 0910 Feb, Impacted cerumen of both ears 380.4 and Mild intermittent asthma 493.90 [facility] [id number] [place] [address] 41247- 9026 Feb, [facility] [id number] [place] [address] 47558- 9817 Jan, [facility] [id number] [place] [address] 65091- 8276 Jan, [facility] [address] [id number] [place] [address]- 0334 Jan, [facility] [place] [facility] [address] [id number] [place] [address]- 2201 Jan, [facility] [place] [facility] [address] [id number] [place] [address]- 3010 Jan, [facility] [place] [facility] [address] [id number] [place] [address]- 4210 Jan, [facility] [place] [facility] [address] [id number] [place] [address]- 5018 Jan, [facility] [place] [facility] [address] [id number] [place] [address]- 9681 Jan, [facility] [address] [id number] [place] [address]- 7378 Jan, [facility] [place] [facility] [address] [id number] [place] [address]- 0616 Jan, [facility] [place] [facility] [address] [id number] [place] [address]- 7677 Jan, [facility] [place] [facility] [address] [facility] [id number] [place] [address]- 5731 Dec, Schizoaffective disorder, unspecified 295.70 [facility] [place] [facility] [address] [id number] [place] [address]- 8261 Dec, [facility] [place] [facility] [address] [id number] [place] [address]- 7960 Dec, [facility] [place] [facility] [address] [id number] [place] [address]- 2463 Dec, [facility] [place] [facility] [address] [facility] [id number] [place] [address]- 3855 Dec, [facility] [place] [facility] [address] [id number] [place] [address]- 6087 Dec, [facility] [place] [facility] [id number] [id number] Dec, Dental examination V72.2 [facility] [id number] [place] [address] 26806- 1011 Dec, Schizoaffective disorder, unspecified 295.70 ; Persistent disorder of initiating 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.42 and Anxiety state, unspecified 300.00 [facility] [id number] [place] [address] 54172- 5878 Dec, [facility] [id number] [place] [address] 52292- 4290 Nov, High risk medication use V58.69 [facility] [id number] [place] [address] 95657- 5436 Nov, [facility] [id number] [place] [address] 62965- 2973 Nov, [facility] [id number] [place] [address] 84806- 1302 Nov, High risk medication use V58.69 [facility] [id number] [place] [address] 73603- 5294 Nov, [facility] [id number] [place] [address] 03846- 4182 Nov, [facility] [address] [place] [address] 25082- 2674 Nov, [facility] [id number] [place] [address] 78621- 0301 Nov, Hypothyroidism 244.9 ; Hypertriglyceridemia 272.1 and Prediabetes 790.29 [facility] [id number] [place] [address] 02671- 7127 Nov, [facility] [address] [place] [address] 14436- 8693 Nov, [facility] [id number] [place] [address] 63897- 0723 Nov, Bulge of cervical disc without myelopathy 722.0 ; Lumbar facet arthropathy 721.3 ; Family history of stroke V17.1 ; Hyperthyroidism 242.90 and 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 long-term current use of medication V58.69 [facility] [address], [place] [address]- 2546 Nov, [facility] [id number] [place] [address] 83713- 0366 October, [facility] [id number] [place] [address] 50077- 6986 October, [facility] [id number] [place] [address] 11582- 0153 October, [facility] [id number] [place] [address] 715288- 7546 October, [facility] [id number] [place] [address] 97155463- 7884 October, [facility] [address] [address] 7365 October, [facility] [address] 2932 October, Schizoaffective disorder, unspecified 295.70 and Persistent disorder of initiating 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.42 [facility] [address], [place] [address]- 8996 October, Schizoaffective disorder, unspecified 295.70 [facility] [address], [place] [address]- 2948 October, [facility] [address] [address]- 9656 October, [facility] [address], [place] [address]- 2546 October, [facility] [address], [place] [address]- 5696 Sep, Lumbago of lumbar region with sciatica 724.2 and Neck pain 723.1 [facility] [address] [id number] [place] [address]- 5186 14 Sep, 2014 [facility] [place] [facility] [address] [id number] [place] [address]- 7516 13 Sep, 2014 [facility] [address] [id number] [place] [address]- 4346 26 Aug, 2014 [facility] [place] [facility] [address] [id number] [place] [address]- 2700 Aug, [facility] [address] [id number] [place] [address]- 1346 Aug, [facility] [address] [facility] [id number] [place] [address]- 1299 Aug, [facility] [address] [facility] [id number] [place] [address]- 9453 24 Aug, 2014 [facility] [address] [id number] [place]- 6372 24 Aug, 2014 [facility] [address] [facility] [id number] [place] [address]- 8769 Aug, [facility] [address] [facility] [id number] [place] [address]- 7289 Aug, [facility] [place] [facility] [address] [facility] [id number] [place] [address]- 9306 19 Aug, 2014 [facility] [place] [facility] [address] [id number] [place] [address]- 3656 19 Aug, 2014 [facility] [place] [facility] [address] [facility] [id number] [place] [address]- 6146 18 Aug, 2014 [facility] [place] [facility] [address] [facility] [id number] [place] [address]- 2546 18 Aug, 2014 [facility] [place] [facility] [address] [facility] [id number] [place] [address]- 4090 Aug, [facility] [place] [facility] [address] [id number] [place] [address]- 3358 Aug, [facility] [place] [facility] [address] [id number] [place] [address]- 1117 Aug, [facility] [place] [facility] [address] [id number] [place] [address]- 9886 Aug, [facility] [place] [facility] [address] [id number] [place] [address]- 2908 Aug, [facility] [place] [facility] [address] [id number] [place] [address]- 3414 Aug, [facility] [place] [facility] [address] [id number] [place] [address]- 5668 Aug, [facility] [place] [facility] [address] [id number] [place] [address]- 7463 Aug, [facility] [place] [facility] [address] [id number] [place] [address] Aug, [facility] [place] [facility] [address] [id number] [place] [address] Aug, [facility] [place] [facility] [address] [id number] [place] [address] Aug, [facility] [place] [facility] [address] [id number] [place] [address] Aug, [facility] [place] [facility] [address] [id number], [place] [address] Aug, [facility] [place] [facility] [address] [id number] [place] [address] Aug, [facility] [place] [facility] [address] [id number] [place] [address] Aug, [facility] [place] [facility] [address] [id number] [place] [address] Jul, [facility] [place] [facility] [address] [id number] [place] [address] Jul, 2014 [facility] [place] [facility] [address] [id number] [place] [address] Jul, 2014 [facility] [place] [facility] [address] [id number] [place] [address] Jul, 2014 [facility] [place] [facility] [address] [id number] [place] [address] Jul, 2014 [facility] [place] [facility] [address] [id number] [place] [address] Jul, 2014 [facility] [place] [facility] [address] [id number] [place] [address] Jul, 2014 [facility] [place] [facility] [address] [id number] [place] [address] Jul, 2014 [facility] [place] [facility] [address] [id number] [place] [address] Jul, 2014 [facility] [place] [facility] [address] [id number] [place] [address] Jul, [facility] [place] [facility] [address] [id number] [place] [address] Jun, [facility] [place] [facility] [address] [id number] [place] [address] Jun, [facility] [place] [facility] [address] [id number] [place] [address] Jun, [facility] [place] [facility] [address] [id number] [place] [address] Jun, [facility] [place] [facility] [address] [id number] [place] [address] Jun, [facility] [place] [facility] [address] [id number] [place] [address] Jun, [facility] [place] [facility] [address] [id number] [place] [address] Jun, [facility] [place] [facility] [address] [id number] [place] [address] May, [facility] [place] [facility] [address] [id number] [place] [address] May, [facility] [place] [facility] [address] [id number] [place] [address] May, [facility] [place] [facility] [address] [id number] [place] [address] May, [facility] [place] [facility] [address] [id number] [place] [address] May, [facility] [place] [facility] [address] [id number] [place] [address] May, [facility] [place] [facility] [address] [id number] [place] [address] May, [facility] [place] [facility] [address] [id number] [place] [address] May, [facility] [place] [facility] [address] [id number] [place] [address] May, [facility] [place] [facility] [address] [id number] [place] [address]284 May, [facility] [place] [facility] [address] [id number] [place] [address] Apr, [facility] [place] [facility] [address] [id number], [place] [address] Apr, [facility] [place] [facility] [address] [id number] [place] [address] Apr, [facility] [place] [facility] [address] [id number] [place] [address] Apr, [facility] [place] [facility] [address] [id number] [place] [address] Apr, [facility] [place] [facility] [address] [id number] [place] [address] 8930 Apr, [facility] [place] [facility] [address] [id number] [place] [address]40 Apr, [facility] [place] [facility] [address] [id number] [place] [address] Apr, [facility] [place] [facility] [address] [id number] [place] [address] Apr, [facility] [place] [facility] [address] [id number] [place] [address] 269[address] Mar, [facility] [place] [facility] [address] [id number] [place] [address] 2689 Mar, [facility] [place] [facility] [address] [id number] [place] [address] 1131 Mar, [facility] [place] [facility] [address] [id number] [place] [address]- 275[address] Mar, [facility] [place] [facility] [address] [id number] [place] [address] 224[address] Mar, [facility] [place] [facility] [address] [id number] [place] [address] Mar, [facility] [place] [facility] [address] [facility] [id number] [place] [address] 1664 Mar, [facility] [place] [facility] [address] [id number] [place] [address] 2078 Mar, [facility] [place] [facility] [address] [id number] [place] [address] 5611 Mar, [facility] [place] [facility] [address] [id number] [place] [address] Mar, [facility] [place] [facility] [address] [id number] [place] [address] 8521 Feb, [facility] [place] [facility] [address] [id number] [place] [address] Feb, [facility] [place] [facility] [address] [id number] [place] [address]- 4444 Feb, [facility] [place] [facility] [address] [id number] [place] [address] 8335 Feb, [facility] [place] [facility] [address] [id number] [place] [address] 6164 Feb, [facility] [place] [facility] [address] [id number] [place] [address] 1474 Jan, [facility] [place] [facility] [address] [id number] [place] [address] Jan, [facility] [place] [facility] [address] [id number] [place] [address]322 Jan, [facility] [place] [facility] [address] [id number] [place] [address] 3145 Jan, [facility] [place] [facility] [address] [id number] [place] [address] 8309 Jan, [facility] [place] [facility] [address] [id number] [place] [address]- 8530 Jan, [facility] [place] [facility] [address] [id number] [place] [address] Jan, [facility] [place] [facility] [address] [id number] [place] [address]- 3385 Jan, [facility] [place] [facility] [address] [id number] [place] [address] 6677 Jan, [facility] [place] [facility] [address] [id number] [place] [address] Dec, [facility] [place] [facility] [address] [id number] [place] [address] 64[address] Dec, [facility] [place] [facility] [address] [id number] [place] [address] 9103 Dec, [facility] [place] [facility] [address] [id number] [place] [address] 4027 Dec, [facility] [place] [facility] [address] [id number] [place] [address] 4330 Dec, [facility] [place] [facility] [address] [id number] [place] [address]- 9521 Dec, [facility] [place] [facility] [address] [id number] [place] [address]- 3900 Dec, [facility] [place] [facility] [address] [id number] [place] [address]- 9037 Dec, [facility] [place] [facility] [address] [id number] [place] [address]- 3954 Nov, [facility] [place] [facility] [address] [id number] [place] [address]- 3978 Nov, [facility] [place] [facility] [address] [id number] [place] [address]- 3946 Nov, [facility] [place] [facility] [address] [id number] [place] [address]- 3054 Nov, [facility] [place] [facility] [address] [id number] [place] [address]- 8314 Nov, [facility] [place] [facility] [address] [id number] [place] [address]- 3463 Nov, [facility] [place] [facility] [address] [id number] [place] [address]- 3365 Nov, [facility] [place] [facility] [address] [id number] [place] [address]- 5803 Nov, [facility] [place] [facility] [address] [id number] [place] [address] 1935 Nov, [facility] [place] [facility] [address] [id number] [place] [address] 2356 Nov, [facility] [place] [facility] [address] [id number] [place] [address]- 0857 Nov, [facility] [place] [facility] [address] [id number] [place] [address]- 4599 Nov, [facility] [address] [id number] [place] [address] 1271 October, [facility] [address] [id number] [place] [address] 8094 October, [facility] [address] [id number] [place] [address] 8894 October, [facility] [address] [id number] [place] [address] 6581 October, [facility] [address] [id number] [place] [address]- 7761 October, [facility] [address] [id number] [place] [address]- 5131 Sep, [facility] [address] [id number] [place] [address]- 0674 Sep, [facility] [address] [id number] [place] [address]- 3754 Sep, [facility] [address] [id number] [place] [address]- 1883 Sep, [facility] [address] [id number] [place] [address]- 2533 Sep, [facility] [place] [facility] [address] [id number] [place] [address]- 7873 Sep, [facility] [address] [id number] [place] [address]- 1062 Sep, [facility] [place] [facility] [address] [id number] [place] [address]- 3240 Sep, [facility] [place] [facility] [address] [id number] [place] [address]- 0402 Sep, [facility] [place] [facility] [address] [id number] [place] [address]- 6436 Sep, [facility] [place] [facility] [address] [id number] [place] [address]- 2611 Sep, [facility] [place] [facility] [address] [id number] [place] [address]- 2834 Sep, [facility] [place] [facility] [address] [id number] [place] [address]- 8277 Sep, [facility] [place] [facility] [address] [id number] [place] [address]- 2756 Sep, [facility] [place] [facility] [address] [id number] [place] [address]- 0987 Sep, [facility] [place] [facility] [address] [id number] [place] [address]- 3685 Sep, [facility] [place] [facility] [address] [id number] [place] [address]- 8282 Sep, [facility] [place] [facility] [address] [id number] [place] [address]- 7383 Sep, [facility] [place] [facility] [address] [id number] [place] [address]- 4309 Sep, [facility] [place] [facility] [address] [id number] [place] [address]- 7322 Aug, [facility] [place] [facility] [address] [id number] [place] [address]- 8282 Aug, [facility] [place] [facility] [address] [id number] [place] [address]- 4917 Aug, [facility] [place] [facility] [address] [id number] [place] [address]- 4438 Aug, [facility] [place] [facility] [address] [id number] [place] [address]- 3802 Jun, [facility] [place] [facility] [address] [id number] [place] [address]- 7693 Jun, [facility] [place] [facility] [address] [id number], [place] [address] 2690 15 Mar, 2013 [facility] [id number], [place] [address] 15 Mar, 2013 [facility] [id number], [place] [address] 6438 17 Nov, 2012 [facility] [id number], [place] [address]169 Sep, [facility] [id number], [place] [address]- 3701 Jun, [facility] [id number] [place] [address]- 0781 Jun, [facility] [id number], [place] [address]- 1743 Apr, [facility] [id number] [place] [address]- 4995 Apr, [facility] [id number], [place] [address]- 7519 Apr, [facility] [id number], [place] [address]- 4879 Mar, [facility] [address] [id number], [place] [address] 14 Feb, 2010 IMMUNIZATIONS No Known Immunizations SOCIAL HISTORY Never Assessed REASON FOR VISIT Requests return call PLAN OF CARE VITAL SIGNS MEDICATIONS Unknown [...] History [facility] unit 03/2016 Hospitalization History [place] x 30 days
--- OUTSIDE RECORDS SUMMARY | 2018-08-13 18:14 | XMS REPORT ---
Author Author CHAS OLIVIER [facility] Address [address] [place] [address] Care Team Providers Care Pneumatic Tube Fitter Name Role Phone CHAS OLIVIER Unavailable PROBLEMS Type Condition ICD9-CM Code FTZ53-LT Code Onset Dates Condition Status SNOMED Code Problem Mild intermittent asthma, uncomplicated J45.20 Active 925308011 Problem Schizoaffective disorder, bipolar type F25.0 Active 49892118 Problem Generalized anxiety disorder F41.1 Active 95129238 Problem Type 2 diabetes mellitus with hyperglycemia E11.65 Active 43377864 Problem senior care 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 Active 848448811 Problem Hand eczema L30.9 Active 673686427 Problem Other chronic pain G89.29 Active 37144203 Problem Gastroesophageal reflux disease, esophagitis presence not specified K21.9 Active 109131421 Problem Bulging of cervical intervertebral disc M50.20 Active 054185506 Problem Hypothyroidism E03.9 Active 11848776 Problem Bulge of cervical disc without myelopathy M50.20 Active 544206939 Problem Lumbar facet arthropathy M46.96 Active 238469652 Problem Cervical dysplasia N87.9 Active 65593152 Problem Hypertriglyceridemia E78.1 Active 786939642 ALLERGIES No Information ENCOUNTERS Encounter Location Date Diagnosis [facility] [address], [place] [address] 28 May, 2018 [facility] [address], [place] [address] 7932 May, [facility] [id number] [place] [address] 99409- 7079 30 Apr, 2018 [facility] [address], [place] [address] 8834 16 Apr, 2018 Pain in left shoulder M25.512 [facility] [id number] [place] [address] 39204- 5003 Apr, Pain in left shoulder M25.512 and Type 2 diabetes mellitus without complication, without long-term current use of insulin E11.9 [facility] [id number] [place] [address] 04808- 4342 Apr, [place] [address] 91435- 5430 Apr, Bulging of cervical intervertebral disc M50.20 and Cervicalgia M54.2 [place] [address] 96850- 1311 Apr, Type 2 diabetes mellitus with hyperglycemia E11.65 [place] [address] 97752- 5167 Apr, Neck pain M54.2 ; Bulging of cervical intervertebral disc M50.20 ; Pain in left shoulder M25.512 ; Other chronic pain G89.29 ; 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 smoking cessation counseling Z71.6 and Type 2 diabetes mellitus with hyperglycemia E11.65 [place] [id number] [place] [address] 54334- 4633 Mar, [place] [address] 47988- 8738 Mar, Diarrhea, unspecified type R19.7 and Type 2 diabetes mellitus without complication, without long-term current use of insulin E11.9 [facility] [id number] [place] [address] 04705 -9031 Mar, Sore throat J02.9 and Nausea R11.0 [facility] [id number] [place] [address] 41422- 0516 Mar, [place] [id number] [place] [address] 36142- 4446 Feb, [place] [id number] [place] [address] 33351- 6495 Feb, Type 2 diabetes mellitus with hyperglycemia E11.65 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 [place] [id number] [place] [address] 06548- 2894 Feb, Type 2 diabetes mellitus without complication, without long- term current use of insulin E11.9 ; Hypertriglyceridemia E78.1 and Gastroesophageal reflux disease, esophagitis presence not specified K21.9 [place] [address] [address] 4320 Feb, [place] [id number] [place] [address] 14487- 1897 Jan, [place] [id number] [place] [address] 09144- 6668 Jan, Type 2 diabetes mellitus without complication, without long- term current use of insulin E11.9 [place] [id number] [place] [address] 46506- 2959 Dec, [place] [id number] [place] [address] 52585- 1868 Dec, [place] [id number] [place] [address] 39183- 6198 Dec, Type 2 diabetes mellitus without complications E11.9 ; senior care 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 and BMI 40.0-44.9, adult Z68.41 [place] [address], [place] [address]- 5329 Dec, Type 2 diabetes mellitus without complication, without long- term current use of insulin E11.9 [place] [address], [place] [address]- 5410 Dec, [place] [id number] [place] [address] 53557- 7885 Dec, Type 2 diabetes mellitus without complication, without long- term current use of insulin E11.9 [place] [address], [place] [address]- 0510 Dec, Type 2 diabetes mellitus without complication, without long- term current use of insulin E11.9 ; Gastroesophageal reflux disease, esophagitis presence not specified K21.9 and BMI 40.0-44.9, adult Z68.41 [place] [address] 27159- 7286 Dec, [facility] [id number] [place] [address] [id number] October, Dental examination Z01.20 [place] [address] 30954- 3997 Sep, [place] [address] 25544- 4395 Sep, Hypertriglyceridemia E78.1 [place] [address] 38191- 6221 Sep, Hypothyroidism E03.9 ; Prediabetes R73.09 ; Mild intermittent asthma, uncomplicated J45.20 ; Bulge of cervical disc without myelopathy M50.20 ; Other chronic pain G89.29 ; Hand eczema L30.9 ; Right anterior knee pain M25.561 ; Hypertriglyceridemia E78.1 and BMI 40.0-44.9, adult Z68.41 [place] [address] 31489- 0195 Sep, [place] [address] 59990- 4150 Sep, [place] [address] 03209- 9332 Jul, [place] [address] 78868- 4621 May, Acute non-recurrent maxillary sinusitis J01.00 [facility] [id number] [place] [address] 34966 -6769 Mar, Other viral agents as the cause of diseases classified elsewhere B97.89 and Acute upper respiratory infection, unspecified J06.9 [address] [place] [address]- 3467 2017 [place] [address] 40937- 4989 Mar, Neck pain M54.2 [place] [address] 92074- 6267 27 Feb, 2017 Bulge of cervical disc without myelopathy M50.20 [place] [address] 33399- 8505 Feb, Neck pain M54.2 [place] [address] 36712- 3206 11 Feb, 2017 [place] [address] 08293- 9783 Feb, Bulge of cervical disc without myelopathy M50.20 ; Hypertriglyceridemia E78.1 ; Hand eczema L30.9 and Hypothyroidism E03.9 [place] [address] 11819- 0414 Jan, [facility] [address] [id number] October, 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 dental examination Z01.20 [place] [address] 87002- 6918 Sep, Generalized abdominal pain R10.84 [place] [address] 91778- 7028 Sep, Schizoaffective disorder, bipolar type F25.0 and Generalized anxiety disorder F41.1 [facility] [address] 15658 -4095 Sep, [facility] [address] 85769 -1863 Sep, Vaginal burning N94.9 and Vaginal mitzi B37.3 [facility] [address] 36662 -5846 Sep, Gastroenteritis K52.9 [facility] [address] 25299 -8811 Sep, Thrush B37.0 [facility] [address] 14789 -5785 Sep, Pharyngitis due to other organism J02.[address] 60947- 1243 Sep, [facility] [address] 68061 -3920 Aug, Cervicalgia M54.[address] 91035- 8142 Aug, Hypothyroidism E03.9 ; Dry skin L85.3 ; Plantar fasciitis, bilateral M72.2 and Other chronic pain G89.29 [facility] [address] 75202 -9628 Aug, Abrasion T14.8 [facility] [address] [id number] Aug, Dental examination Z01.20 [facility] [address] 07677 -6002 Aug, Excessive cerumen in right ear canal H61.21 ; Impacted cerumen of both ears 380.4 and Bronchitis J40 [facility] [address] 91265 -9821 Jul, Bilateral impacted cerumen H61.23 and Acute non-recurrent frontal sinusitis J01.[address] 43389- 8205 May, Schizoaffective disorder, bipolar type F25.0 and Generalized anxiety disorder F41.[address] 64958- 8220 May, [facility] [address], [place] [address]- 8845 May, Cervicalgia M54.2 and Hypertriglyceridemia E78.1 [facility] [id number] [place] [address] 28302- 2419 May, [facility] [id number] [place] [address] 31847- 2720 May, STD exposure Z20.2 and Well woman exam Z01.419 [facility] [id number] [place] [address] 45304- 5314 May, [facility] [id number] [place] [address] 18944- 0190 Mar, [facility] [id number] [place] [address] 69952- 2794 Dec, Pain in left knee M25.562 [facility] [id number] [place] [address] 11034- 9958 Dec, [facility] [id number] [place] [address] 94774- 2438 Nov, [facility] [id number] [place] [address] 77405- 0342 October, [facility] [address] [place] [address] 74870- 3044 Aug, [facility] [id number] [place] [address] 53888- 8292 Jul, [facility] [id number] [place] [address] 80510- 1465 17 Jul, 2015 [facility] [id number] [place] [address] 63003- 1916 10 Jul, 2015 Plantar fasciitis M72.2 and 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 [facility] [id number] [place] [address] 15896- 3275 Jul, [facility] [id number] [place] [address] 37867- 1813 Jun, Plantar fasciitis M72.2 and Physical exam Z00.00 [facility] [id number] [place] [address] 95698- 5073 Jun, [facility] [address] 80072- 4042 Jun, [facility] [id number] [place] [address] 38914- 0051 Jun, [facility] [address] 85817- 8545 May, [facility] [address] 05964- 5195 May, Hypertriglyceridemia E78.1 [facility] [address] 92704- 2478 May, Hypothyroidism E03.9 ; Prediabetes R73.09 and Hypertriglyceridemia E78.1 [facility] [id number] [place] [address] 60128- 0705 May, [facility] [id number] [place] [address] 16851- 0986 May, [facility] [id number] [place] [address] 77391- 9601 May, Hypothyroidism E03.9 ; Prediabetes R73.09 and Hypertriglyceridemia E78.1 [facility] [id number] [place] [address] 38725- 3995 Apr, Schizoaffective disorder, bipolar type F25.0 [facility] [id number] [place] [address] 73616- 9965 Mar, [facility] [id number] [place] [address] 95535- 1810 Mar, [facility] [address], [place] [address]- 8285 Mar, [facility] [id number] [place] [address] 18718- 6898 30 Feb, 2015 [facility] [id number] [place] [address] 77848- 7915 24 Feb, 2015 [facility] [id number] [place] [address] 31859- 9074 16 Feb, 2015 [facility] [id number] [place] [address] 58546- 3080 15 Feb, 2015 Screen for STD (sexually transmitted disease) V74.5 ; Counseling on other sexually transmitted diseases V65.45 ; Back pain 724.5 ; Contact with or exposure to venereal diseases V01.6 and Pelvic pain in female 625.9 [place] [id number] [place] [address] 16587- 6784 15 Feb, 2015 Schizoaffective disorder, unspecified 295.70 and Anxiety state, unspecified 300.00 [facility] [address] [place] [address] 28152- 9076 14 Feb, 2015 [facility] [id number] [place] [address] 97346- 8433 Feb, [facility] [id number] [place] [address] 38361- 9149 Feb, Impacted cerumen of both ears 380.4 and Mild intermittent asthma 493.90 [facility] [id number] [place] [address] 51988- 3537 Feb, [facility] [id number] [place] [address] 08982- 8759 Jan, [facility] [id number] [place] [address] 16732- 3269 Jan, [facility] [id number] [place] [address] 12872- 1680 Jan, [facility] [address] [id number] [place] [address]- 3206 Jan, [facility] [address] [id number] [place] [address]- 5033 Jan, [facility] [place] [address] [id number] [place] [address]- 4714 Jan, [facility] [place] [address] [facility] [id number] [place] [address]- 9429 Jan, [facility] [place] [address] [id number] [place] [address]- 0469 Jan, [facility] [address] [id number] [place] [address]- 7392 Jan, [facility] [address] [facility] [address] [id number] [place] [address]- 7110 Jan, [facility] [address] [facility] [address] [id number], [place] [address]- 9829 Jan, [facility] [address] [facility] [address] [id number], [place] [address]- 5197 Dec, Schizoaffective disorder, unspecified 295.70 [facility] [address] [facility] [address] [id number] [place] [address]- 5163 Dec, [facility] [address] [facility] [address] [id number], [place] [address]- 9095 Dec, [facility] [address] [facility] [address] [id number] [address]- 9074 Dec, [facility] [address] [facility] [address] [id number] [address]- 6178 Dec, [facility] [address] [facility] [address] [id number] [address]- 0489 Dec, [facility] [place] [facility] [address] [id number] [place] [address] Dec, Dental examination V72.2 [facility] [address], [place] [address]- 8043 Dec, Schizoaffective disorder, unspecified 295.70 ; Persistent disorder of initiating 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.42 and Anxiety state, unspecified 300.00 [facility] [address], [place] [address]- 3681 Dec, [facility] [id number] [place] [address] 42804- 1477 Nov, High risk medication use V58.69 [facility] [address], [place] [address]- 9715 Nov, [facility] [id number] [place] [address] 79688- 5655 Nov, [facility] [address] [address]- 7917 Nov, High risk medication use V58.69 [facility] [address] [address]- 7929 Nov, [facility] [address] [place] [address] 89473- 4985 Nov, [facility] [address], [place] [address]- 2809 Nov, [facility] [address], [place] [address]- 9996 Nov, Hypothyroidism 244.9 ; Hypertriglyceridemia 272.1 and Prediabetes 790.29 [facility] [address], [place] [address]- 0415 Nov, [facility] [id number] [place] [address] 67887- 2038 Nov, [facility] [address], [place] [address]- 4883 Nov, Bulge of cervical disc without myelopathy 722.0 ; Lumbar facet arthropathy 721.3 ; Family history of stroke V17.1 ; Hyperthyroidism 242.90 and 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 long-term current use of medication V58.69 [facility] [address], [place] [address]- 5881 Nov, [facility] [address] [address] 7766 October, [facility] [id number] [place] [address] 147388- 8130 October, [facility] [id number] [place] [address] 35135- 5718 October, [facility] [id number] [place] [address] 215098- 3069 October, [facility] [id number] [place] [address] 33678- 9808 October, [facility] [id number] [place] [address] 24625- 2090 October, [facility] [address], [place] [address]- 1565 October, Schizoaffective disorder, unspecified 295.70 and Persistent disorder of initiating 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.42 [facility] [address], [place] [address]- 3803 October, Schizoaffective disorder, unspecified 295.70 [facility] [address], [place] [address]- 2523 October, [facility] [address] 0725 October, [facility] [address] 0876 October, [facility] [address] 2981 Sep, Lumbago of lumbar region with sciatica 724.2 and Neck pain 723.1 [facility] [address] [facility] [id number] [place] [address]- 7548 14 Sep, 2014 [facility] [place] [facility] [address] [id number] [place] [address]- 6256 13 Sep, 2014 [facility] [place] [facility] [address] [id number] [place] [address]- 9453 26 Aug, 2014 [facility] [place] [facility] [address] [id number] [place] [address]- 6472 26 Aug, 2014 [facility] [place] [facility] [address] [id number] [place] [address]- 2789 26 Aug, 2014 [facility] [place] [facility] [address] [id number] [place] [address]- 0793 26 Aug, 2014 [facility] [place] [facility] [address] [id number] [place] [address]- 6905 24 Aug, 2014 [facility] [place] [facility] [address] [id number] [place] [address]- 5089 24 Aug, 2014 [facility] [place] [facility] [address] [id number] [place] [address]- 6162 20 Aug, 2014 [facility] [place] [facility] [address] [id number] [place] [address]- 9589 20 Aug, 2014 [facility] [place] [facility] [address] [id number] [place] [address]- 0480 19 Aug, 2014 [facility] [place] [facility] [address] [id number] [place] [address]- 3479 19 Aug, 2014 [facility] [place] [facility] [address] [id number] [place] [address]- 4469 18 Aug, 2014 [facility] [place] [facility] [address] [id number] [place] [address]- 7705 18 Aug, 2014 [facility] [place] [facility] [address] [id number] [place] [address]- 9546 18 Aug, 2014 [facility] [place] [facility] [address] [id number] [place] [address]- 6520 Aug, [facility] [place] [facility] [address] [id number] [place] [address]- 6090 16 Aug, 2014 [facility] [place] [facility] [address] [id number] [place] [address]- 6746 Aug, [facility] [place] [facility] [address] [id number] [place] [address]- 9152 Aug, [facility] [place] [facility] [address] [id number] [place] [address]- 1916 Aug, [facility] [place] [facility] [address] [id number] [place] [address]- 1822 Aug, [facility] [place] [facility] [address] [id number] [place] [address]- 0357 Aug, [facility] [place] [facility] [address] [id number] [place] [address] Aug, [facility] [place] [facility] [address] [id number] [place] [address] Aug, [facility] [place] [facility] [address] [id number] [place] [address] Aug, [facility] [place] [facility] [address] [id number] [place] [address] Aug, [facility] [place] [facility] [address] [id number] [place] [address] Aug, [facility] [place] [facility] [address] [id number] [address] Aug, [facility] [place] [facility] [address] [id number] [place] [address] Aug, [facility] [place] [facility] [address] [id number] [place] [address] Jul, [facility] [place] [facility] [address] [id number] [place] [address] Jul, [facility] [place] [facility] [address] [id number] [place] [address] Jul, 2014 [facility] [place] [facility] [address] [id number] [place] [address] Jul, 2014 [facility] [place] [facility] [address] [id number] [place] [address] Jul, 2014 [facility] [place] [facility] [address] [id number] [place] [address] Jul, 2014 [facility] [place] [facility] [address] [id number] [place] [address] Jul, 2014 [facility] [place] [facility] [address] [id number] [place] [address] Jul, 2014 [facility] [place] [facility] [address] [facility] [id number] [place] [address] Jul, 2014 [facility] [place] [facility] [address] [id number] [place] [address] Jul, 2014 [facility] [place] [facility] [address] [id number] [place] [address] Jun, [facility] [place] [facility] [address] [id number] [place] [address] Jun, [facility] [place] [facility] [address] [id number] [place] [address] Jun, [facility] [place] [facility] [address] [id number] [place] [address] Jun, [facility] [place] [facility] [address] [id number] [place] [address] Jun, [facility] [place] [facility] [address] [id number] [place] [address] Jun, [facility] [place] [facility] [address] [id number] [place] [address] Jun, [facility] [place] [facility] [address] [id number] [place] [address] May, [facility] [place] [facility] [address] [id number] [place] [address] May, [facility] [place] [facility] [address] [id number] [place] [address] May, [facility] [place] [facility] [address] [id number] [id number] [address] May, [facility] [place] [facility] [address] [id number] [place] [address] May, [facility] [place] [facility] [address] [id number] [place] [address] May, [facility] [place] [facility] [address] [id number] [place] [address] May, [facility] [place] [facility] [address] [id number] [place] [address] May, [facility] [place] [facility] [address] [id number] [place] [address] May, [facility] [place] [facility] [address] [id number] [place] [address] May, [facility] [place] [facility] [address] [id number] [place] [address] Apr, [facility] [place] [facility] [address] [id number] [place] [address] Apr, [facility] [place] [facility] [address] [id number], [place] [address] Apr, [facility] [place] [facility] [address] [id number] [place] [address] Apr, [facility] [place] [facility] [address] [id number] [place] [address] Apr, [facility] [place] [facility] [address] [id number] [place] [address] Apr, [facility] [place] [facility] [address] [id number] [place] [address] Apr, [facility] [place] [facility] [address] [id number] [place] [address]60 Apr, [facility] [place] [facility] [address] [id number] [place] [address] Apr, [facility] [place] [facility] [address] [id number] [place] [address] Mar, [facility] [place] [facility] [address] [id number] [place] [address] 1988 Mar, [facility] [place] [facility] [address] [id number] [place] [address] 277[address] Mar, [facility] [place] [facility] [address] [id number] [place] [address] 16[address] Mar, [facility] [place] [facility] [address] [id number] [place] [address] Mar, [facility] [place] [facility] [address] [id number] [place] [address] 94[address] Mar, [facility] [place] [facility] [address] [id number] [place] [address] 1427 Mar, [facility] [place] [facility] [address] [id number] [place] [address] Mar, [facility] [place] [facility] [address] [id number] [place] [address] Mar, [facility] [place] [facility] [address] [id number] [place] [address] Mar, [facility] [place] [facility] [address] [id number] [place] [address] Feb, [facility] [place] [facility] [address] [id number] [place] [address] Feb, [facility] [place] [facility] [address] [id number] [place] [address] Feb, [facility] [place] [facility] [address] [id number] [place] [address] Feb, [facility] [place] [facility] [address] [id number] [place] [address] Feb, [facility] [place] [facility] [address] [id number] [place] [address] Jan, [facility] [place] [facility] [address] [id number] [place] [address] 5937 Jan, [facility] [place] [facility] [address] [id number] [place] [address] Jan, [facility] [place] [facility] [address] [id number] [place] [address] 478[address] Jan, [facility] [place] [facility] [address] [id number] [place] [address] 1626 Jan, [facility] [place] [facility] [address] [id number] [place] [address] 0741 Jan, [facility] [place] [facility] [address] [id number] [place] [address] 6[address] Jan, [facility] [place] [facility] [address] [id number] [place] [address] 47[address] Jan, [facility] [place] [facility] [address] [id number] [place] [address] 1942 Jan, [facility] [place] [facility] [address] [id number] [place] [address] 8[address] Dec, [facility] [place] [facility] [address] [id number] [place] [address] 26[address] Dec, [facility] [place] [facility] [address] [id number] [place] [address] 8637 Dec, [facility] [place] [facility] [address] [id number] [place] [address] 98[address] Dec, [facility] [place] [facility] [address] [id number] [place] [address] 8[address] Dec, [facility] [place] [facility] [address] [id number] [place] [address] Dec, [facility] [place] [facility] [address] [id number] [place] [address] Dec, [facility] [place] [facility] [address] [id number] [place] [address] Dec, [facility] [place] [facility] [address] [id number] [place] [address] Nov, [facility] [place] [facility] [address] [id number] [place] [address] Nov, [facility] [place] [facility] [address] [id number] [place] [address] 1338 Nov, [facility] [place] [facility] [address] [id number] [place] [address] Nov, [facility] [place] [facility] [address] [id number] [place] [address] 56[address] Nov, [facility] [place] [facility] [address] [id number] [place] [address] 8531 Nov, [facility] [place] [facility] [address] [id number] [place] [address] 3664 Nov, [facility] [place] [facility] [address] [id number] [place] [address] 8808 Nov, [facility] [place] [facility] [address] [id number] [place] [address] Nov, [facility] [place] [facility] [address] [id number] [place] [address]- 8596 Nov, [facility] [place] [facility] [address] [id number] [place] [address]- 2346 Nov, [facility] [place] [facility] [address] [id number] [place] [address]- 1566 Nov, [facility] [place] [facility] [address] [id number] [place] [address]- 9[address] October, [facility] [address] [id number] [place] [address] 9[address] October, [facility] [address] [id number] [place] [address] October, [facility] [address] [id number] [place] [address] 6695 October, [facility] [address] [id number] [place] [address]- 69[address] October, [facility] [address] [id number] [place] [address] 4447 Sep, [facility] [address] [id number] [place] [address] 7220 Sep, [facility] [address] [id number] [place] [address]- 8744 Sep, [facility] [address] [id number] [place] [address]- 2678 Sep, [facility] [address] [id number] [place] [address] 6271 Sep, [facility] [address] [id number] [place] [address]- 5[address] Sep, [facility] [place] [facility] [address] [id number] [place] [address]- 6632 Sep, [facility] [address] [id number] [place] [address]- 5598 Sep, [facility] [place] [facility] [address] [id number] [place] [address]- 6789 Sep, [facility] [place] [facility] [address] [id number] [place] [address]- 3045 Sep, [facility] [place] [facility] [address] [id number] [place] [address]- 7625 Sep, [facility] [place] [facility] [address] [id number] [place] [address]- 4632 Sep, [facility] [place] [facility] [address] [id number] [place] [address]- 7441 Sep, [facility] [place] [facility] [address] [id number] [place] [address]- 3007 Sep, [facility] [place] [facility] [address] [id number] [place] [address]- 4566 Sep, [facility] [place] [facility] [address] [id number] [place] [address]- 1748 Sep, [facility] [place] [facility] [address] [id number] [place] [address]- 6635 Sep, [facility] [place] [facility] [address] [id number] [place] [address]- 8361 Sep, [facility] [place] [facility] [address] [id number] [place] [address]- 5053 Sep, [facility] [place] [facility] [address] [id number] [place] [address]- 0435 Aug, [facility] [place] [facility] [address] [id number] [place] [address]- 1054 Aug, [facility] [place] [facility] [address] [id number] [place] [address]- 2211 Aug, [facility] [place] [facility] [address] [id number] [place] [address]- 8581 Aug, [facility] [place] [facility] [address] [id number] [place] [address]- 4165 Jun, [facility] [place] [facility] [address] [id number] [place] [address]- 0016 Jun, [facility] [place] [facility] [address] [id number] [place] [address]- 4146 Mar, [facility] [place] [facility] [address] [id number], [place] [address] 15 Mar, 2013 [facility] [id number] [address] Nov, [facility] [id number], [place] [address]27 Sep, [facility] [id number], [place] [address]- 9[address] Jun, [facility] [id number] [place] [address]- [address]121 Jun, [facility] [id number] [place] [address]- 2096 Apr, [facility] [id number] [place] [address]- 4066 Apr, [facility] [id number], [place] [address]- 2991 Apr, [facility] [id number], [place] [address] Mar, [facility] [id number], [place] [address] Feb, IMMUNIZATIONS No Known Immunizations SOCIAL HISTORY Never Assessed REASON FOR VISIT Refill Request PLAN OF CARE VITAL SIGNS MEDICATIONS Medication [...]
--- OUTSIDE RECORDS SUMMARY | 2018-08-13 18:14 | XMS REPORT ---
Author Author CHAS OLIVIER [facility] Address [address] [place] [address] Care Team Providers Care Soubrette Name Role Phone CHAS OLIVIER Unavailable PROBLEMS Type Condition ICD9-CM Code MNM50-UG Code Onset Dates Condition Status SNOMED Code Problem Mild intermittent asthma, uncomplicated J45.20 Active 910046655 Problem Schizoaffective disorder, bipolar type F25.0 Active 73838600 Problem Generalized anxiety disorder F41.1 Active 15762214 Problem Type 2 diabetes mellitus with hyperglycemia E11.65 Active 61194439 Problem senior living 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 Active 000185087 Problem Hand eczema L30.9 Active 699143837 Problem Other chronic pain G89.29 Active 34094960 Problem Gastroesophageal reflux disease, esophagitis presence not specified K21.9 Active 284404281 Problem Bulging of cervical intervertebral disc M50.20 Active 870798993 Problem Hypothyroidism E03.9 Active 19853417 Problem Bulge of cervical disc without myelopathy M50.20 Active 169600399 Problem Lumbar facet arthropathy M46.96 Active 966127110 Problem Cervical dysplasia N87.9 Active 14459099 Problem Hypertriglyceridemia E78.1 Active 902069616 ALLERGIES No Information ENCOUNTERS Encounter Location Date Diagnosis [facility] [id number] [place] [address] 82327- 3866 30 Apr, 2018 [facility] [address] [address] 0639 16 Apr, 2018 Pain in left shoulder M25.512 [facility] [id number] [place] [address] 60428- 3136 15 Apr, 2018 Pain in left shoulder M25.512 and Type 2 diabetes mellitus without complication, without long-term current use of insulin E11.9 [facility] [id number] [place] [address] 59991- 8453 Apr, [place] [address] 15484- 9344 Apr, Bulging of cervical intervertebral disc M50.20 and Cervicalgia M54.2 [place] [id number] [place] [address] 68024- 2978 Apr, Type 2 diabetes mellitus with hyperglycemia E11.65 [place] [address] 36888- 6955 Apr, Neck pain M54.2 ; Bulging of cervical intervertebral disc M50.20 ; Pain in left shoulder M25.512 ; Other chronic pain G89.29 ; 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 smoking cessation counseling Z71.6 and Type 2 diabetes mellitus with hyperglycemia E11.65 [place] [id number] [place] [address] 42493- 8304 Mar, [place] [address] 16534- 7280 Mar, Diarrhea, unspecified type R19.7 and Type 2 diabetes mellitus without complication, without long-term current use of insulin E11.9 [facility] WALK IN [facility] [id number] [place] [address] 68352 -3112 Mar, Sore throat J02.9 and Nausea R11.0 [place] [id number] [place] [address] 54975- 0547 Mar, [place] [address] 72487- 9115 Feb, [place] [id number] [place] [address] 40815- 4446 Feb, Type 2 diabetes mellitus with hyperglycemia E11.65 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 [place] [id number] [place] [address] 59165- 1472 Feb, Type 2 diabetes mellitus without complication, without long- term current use of insulin E11.9 ; Hypertriglyceridemia E78.1 and Gastroesophageal reflux disease, esophagitis presence not specified K21.9 [place] [address] [address] 8531 Feb, [facility] [id number] [place] [address] 00683- 9274 Jan, [facility] [id number] [place] [address] 01943- 1072 Jan, Type 2 diabetes mellitus without complication, without long- term current use of insulin E11.9 [place] [id number] [place] [address] 00612- 1709 Dec, [place] [id number] [place] [address] 67939- 2405 Dec, [place] [id number] [place] [address] 99378- 5558 Dec, Type 2 diabetes mellitus without complications E11.9 ; senior living 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 and BMI 40.0-44.9, adult Z68.41 [place] [id number] [place] [address] 72666- 5423 Dec, Type 2 diabetes mellitus without complication, without long- term current use of insulin E11.9 [place] [address], [place] [address]- 7322 Dec, [place] [id number] [place] [address] 48548- 4485 Dec, Type 2 diabetes mellitus without complication, without long- term current use of insulin E11.9 [place] [address] [address]- 3136 Dec, Type 2 diabetes mellitus without complication, without long- term current use of insulin E11.9 ; Gastroesophageal reflux disease, esophagitis presence not specified K21.9 and BMI 40.0-44.9, adult Z68.41 [place] [id number] [place] [address] 33367- 7605 Dec, [facility] [id number] [address] October, Dental examination Z01.20 [place] [id number] [place] [address] 63766- 1143 Sep, [place] [id number] [place] [address] 03341- 6410 Sep, Hypertriglyceridemia E78.1 [place] [id number] [place] [address] 27077- 4946 Sep, Hypothyroidism E03.9 ; Prediabetes R73.09 ; Mild intermittent asthma, uncomplicated J45.20 ; Bulge of cervical disc without myelopathy M50.20 ; Other chronic pain G89.29 ; Hand eczema L30.9 ; Right anterior knee pain M25.561 ; Hypertriglyceridemia E78.1 and BMI 40.0-44.9, adult Z68.41 [place] [id number] [place] [address] 33805- 6072 Sep, [place] [id number] [place] [address] 35720- 9473 Sep, [place] [id number] [place] [address] 29085- 1201 Jul, [place] [id number] [place] [address] 05957- 0592 May, Acute non-recurrent maxillary sinusitis J01.00 [facility] WALK IN [facility] [id number] [place] [address] 45180 -4802 Mar, Other viral agents as the cause of diseases classified elsewhere B97.89 and Acute upper respiratory infection, unspecified J06.9 [place] [id number] [place] [address] 58474- 0660 Mar, [place] [id number] [place] [address] 27421- 6555 Mar, Neck pain M54.2 [place] [id number] [place] [address] 72791- 9705 27 Feb, 2017 Bulge of cervical disc without myelopathy M50.20 [facility] [address] 25516- 2249 22 Feb, 2017 Neck pain M54.2 [facility] [address] 14338- 6034 11 Feb, 2017 [facility] [address] 41596- 6190 07 Feb, 2017 Bulge of cervical disc without myelopathy M50.20 ; Hypertriglyceridemia E78.1 ; Hand eczema L30.9 and Hypothyroidism E03.9 [facility] [address] 56164- 0452 Jan, [facility] [address] [id number] October, 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 dental examination Z01.20 [facility] [address] 25835- 9579 Sep, Generalized abdominal pain R10.84 [place] [address] 88127- 3595 Sep, Schizoaffective disorder, bipolar type F25.0 and Generalized anxiety disorder F41.1 [facility] [address] [place] [address] 75526 -6615 Sep, [facility] [address] 11365 -6982 Sep, Vaginal burning N94.9 and Vaginal mitzi B37.3 [facility] [address] [place] [address] 95835 -2516 Sep, Gastroenteritis K52.9 [facility] [address] [place] [address] 07691 -0628 18 Sep, 2016 Thrush B37.0 [facility] [address] 89134 -8183 Sep, Pharyngitis due to other organism J02.8 [place] [address] 37585- 2652 Sep, [facility] WALK IN [place] [address] 09474 -7065 Aug, Cervicalgia M54.[address] 82156- 8187 Aug, Hypothyroidism E03.9 ; Dry skin L85.3 ; Plantar fasciitis, bilateral M72.2 and Other chronic pain G89.29 [facility] WALK IN [address] 85026 -9170 Aug, Abrasion T14.8 [facility] [address] [id number] Aug, Dental examination Z01.20 [facility] WALK IN [address] 29304 -5616 Aug, Excessive cerumen in right ear canal H61.21 ; Impacted cerumen of both ears 380.4 and Bronchitis J40 [facility] IN [address] 60876 -3105 Jul, Bilateral impacted cerumen H61.23 and Acute non-recurrent frontal sinusitis J01.10 [place] [address] 05270- 3167 May, Schizoaffective disorder, bipolar type F25.0 and Generalized anxiety disorder F41.1 [place] [address] 57793- 0099 May, [place] [address] 67971- 8855 May, Cervicalgia M54.2 and Hypertriglyceridemia E78.1 [place] [address] 07288- 0146 May, [facility] [address] [address]- 7313 May, STD exposure Z20.2 and Well woman exam Z01.419 [facility] [address] 6830 May, [facility] [id number] [place] [address] 73970- 3586 Mar, [facility] [address], [place] [address]- 0397 Dec, Pain in left knee M25.562 [facility] [id number] [place] [address] 27699- 8592 Dec, [facility] [address], [place] [address]- 9822 Nov, [facility] [id number] [place] [address] 31814- 7828 October, [facility] [id number] [place] [address] 95129- 7656 Aug, [facility] [address], [place] [address]- 0684 Jul, [facility] [address], [place] [address]- 7875 Jul, [facility] [address], [place] [address]- 7404 Jul, Plantar fasciitis M72.2 and 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 [facility] [id number] [place] [address] 88546- 6308 09 Jul, 2015 [facility] [address], [place] [address]- 1938 Jun, Plantar fasciitis M72.2 and Physical exam Z00.00 [facility] [id number], [place] [address]- 2837 Jun, [facility] [id number] [place] [address] 01756- 8545 Jun, [facility] [id number] [place] [address] 21609- 4620 Jun, [facility] [id number] [place] [address] 20492- 4022 May, [facility] [id number] [place] [address] 07307- 2884 May, Hypertriglyceridemia E78.1 [facility] [id number] [place] [address] 23608- 8401 May, Hypothyroidism E03.9 ; Prediabetes R73.09 and Hypertriglyceridemia E78.1 [facility] [id number] [place] [address] 16946- 3996 May, [facility] [id number] [place] [address] 84140- 0494 May, [facility] [id number] [place] [address] 60100- 3516 May, Hypothyroidism E03.9 ; Prediabetes R73.09 and Hypertriglyceridemia E78.1 [facility] [id number] [place] [address] 74337- 2023 Apr, Schizoaffective disorder, bipolar type F25.0 [facility] [address], [place] [address]- 1294 Mar, [facility] [id number] [place] [address] 79692- 6183 Mar, [facility] [id number] [place] [address] 07088- 6211 Mar, [facility] [id number] [place] [address] 09950- 3613 Feb, [facility] [id number] [place] [address] 69456- 1715 24 Feb, 2015 [facility] [id number] [place] [address] 00916- 6020 16 Feb, 2015 [facility] [id number] [place] [address] 49816- 3763 15 Feb, 2015 Screen for STD (sexually transmitted disease) V74.5 ; Counseling on other sexually transmitted diseases V65.45 ; Back pain 724.5 ; Contact with or exposure to venereal diseases V01.6 and Pelvic pain in female 625.9 [facility] [id number] [place] [address] 40504- 2393 15 Feb, 2015 Schizoaffective disorder, unspecified 295.70 and Anxiety state, unspecified 300.00 [facility] [id number] [place] [address] 59692- 0282 14 Feb, 2015 [facility] [id number] [place] [address] 43801- 5778 10 Feb, 2015 [facility] [id number] [place] [address] 81325- 1572 03 Feb, 2015 Impacted cerumen of both ears 380.4 and Mild intermittent asthma 493.90 [facility] [id number] [place] [address] 75211- 6118 Feb, [facility] [id number] [place] [address] 76717- 6384 Jan, [facility] [id number] [place] [address] 96908- 1211 Jan, [facility] [id number] [place] [address] 44113- 1264 Jan, [facility] [id number] [place] [address] 97138- 2179 Jan, [facility] [id number] [place] [address] 34791- 2182 Jan, [facility] [address], [place] [address]- 2618 Jan, [facility] [address], [place] [address]- 1326 Jan, [facility] [address], [place] [address]- 1744 Jan, [facility] [address], [place] [address]- 2155 Jan, [facility] [address], [place] [address]- 9954 Jan, [facility] [address], [place] [address]- 9075 Jan, [facility] [address], [place] [address]- 1180 Dec, Schizoaffective disorder, unspecified 295.70 [facility] [address], [place] [address]- 7792 Dec, [facility] [id number] [place] [address] 99847- 5169 Dec, [facility] [address] [place] [address]- 3115 Dec, [facility] [address], [place] [address]- 2022 Dec, [facility] [address] [address]- 2209 Dec, [facility] [id number] [address] Dec, Dental examination V72.2 [facility] [address], [place] [address]- 4293 Dec, Schizoaffective disorder, unspecified 295.70 ; Persistent disorder of initiating 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.42 and Anxiety state, unspecified 300.00 [facility] [address], [place] [address]- 8993 Dec, [facility] [id number] [place] [address] 63037- 8397 Nov, High risk medication use V58.69 [facility] [address], [place] [address]- 9050 Nov, [facility] [id number] [place] [address] 04460- 7080 Nov, [facility] [id number] [place] [address] 27917- 5322 Nov, High risk medication use V58.69 [facility] [id number] [place] [address] 71796- 2707 Nov, [facility] [id number] [place] [address] 54600- 2905 Nov, [facility] [id number] [place] [address] 17756- 5037 Nov, [facility] [id number] [place] [address] 49806- 2779 Nov, Hypothyroidism 244.9 ; Hypertriglyceridemia 272.1 and Prediabetes 790.29 [facility] [address] [address]- 1931 Nov, [facility] [id number] [place] [address] 36924- 8321 Nov, [facility] [address], [place] [address]- 4156 Nov, Bulge of cervical disc without myelopathy 722.0 ; Lumbar facet arthropathy 721.3 ; Family history of stroke V17.1 ; Hyperthyroidism 242.90 and 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 long-term current use of medication V58.69 [facility] [address], [place] [address]- 7198 Nov, [facility] [address] [address] 2708 October, [facility] [address], [place] [address]- 8451 October, [facility] [address], [place] [address]- 7704 October, [facility] [id number] [place] [address] 372642- 9379 October, [facility] [id number] [address]- 5684 October, [facility] [id number] [place] [address] 305561- 6020 October, [facility] [address], [place] [address]- 3501 October, Schizoaffective disorder, unspecified 295.70 and Persistent disorder of initiating 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.42 [facility] [address], [place] [address]- 1251 October, Schizoaffective disorder, unspecified 295.70 [facility] [address], [place] [address]- 5408 October, [facility] [address], [place] [address]- 8898 October, [facility] [address], [place] [address]- 1905 October, [facility] [address], [place] [address]- 8828 Sep, Lumbago of lumbar region with sciatica 724.2 and Neck pain 723.1 [facility] [address] [address] 3824 Sep, [facility] [address], [place] [address]- 4747 Sep, [facility] [address] [facility] [id number] [place] [address]- 1031 26 Aug, 2014 [facility] [place] [facility] [address] [id number] [place] [address]- 0283 26 Aug, 2014 [facility] [place] [facility] [address] [id number] [place] [address]- 2726 26 Aug, 2014 [facility] [place] [facility] [address] [id number] [place] [address]- 5935 26 Aug, 2014 [facility] [place] [facility] [address] [id number] [place] [address]- 4787 24 Aug, 2014 [facility] [place] [facility] [address] [id number] [place] [address]- 3837 24 Aug, 2014 [facility] [place] [facility] [address] [id number] [place] [address]- 3464 20 Aug, 2014 [facility] [place] [facility] [address] [id number] [place] [address]- 2265 20 Aug, 2014 [facility] [place] [facility] [address] [id number] [place] [address]- 0554 19 Aug, 2014 [facility] [place] [facility] [address] [id number] [place] [address]- 4996 19 Aug, 2014 [facility] [place] [facility] [address] [id number] [place] [address]- 5172 18 Aug, 2014 [facility] [place] [facility] [address] [id number] [place] [address]- 7898 18 Aug, 2014 [facility] [place] [facility] [address] [id number] [place] [address]- 7788 18 Aug, 2014 [facility] [place] [facility] [address] [id number] [place] [address]- 3224 18 Aug, 2014 [facility] [place] [facility] [address] [id number] [place] [address]- 6666 16 Aug, 2014 [facility] [place] [facility] [address] [id number] [place] [address]- 3766 Aug, [facility] [place] [facility] [address] [id number] [place] [address]- 0692 Aug, [facility] [place] [facility] [address] [id number] [place] [address]- 7804 Aug, [facility] [place] [facility] [address] [id number] [place] [address]- 2709 Aug, [facility] [place] [facility] [address] [id number] [place] [address] Aug, [facility] [place] [facility] [address] [id number] [place] [address] Aug, [facility] [place] [facility] [address] [id number] [place] [address] Aug, [facility] [place] [facility] [address] [id number] [place] [address] Aug, [facility] [place] [facility] [address] [id number] [place] [address] Aug, [facility] [place] [facility] [address] [id number] [place] [address] Aug, [facility] [place] [facility] [address] [id number] [place] [address] Aug, [facility] [place] [facility] [address] [id number] [place] [address] Aug, [facility] [place] [facility] [address] [id number], [place] [address] Jul, [facility] [place] [facility] [address] [id number] [place] [address] Jul, [facility] [place] [facility] [address] [id number] [place] [address] Jul, [facility] [place] [facility] [address] [id number] [place] [address] Jul, [facility] [place] [facility] [address] [id number] [place] [address] 20 Jul, 2014 [facility] [place] [facility] [address] [id number] [place] [address] Jul, 2014 [facility] [place] [facility] [address] [id number] [place] [address] Jul, 2014 [facility] [place] [facility] [address] [id number] [place] [address] Jul, 2014 [facility] [place] [facility] [address] [id number] [place] [address] Jul, 2014 [facility] [place] [facility] [address] [id number] [place] [address] Jul, [facility] [place] [facility] [address] [id number] [place] [address] Jun, [facility] [place] [facility] [address] [id number] [place] [address] Jun, [facility] [place] [facility] [address] [id number] [place] [address] [address] Jun, [facility] [place] [facility] [address] [id number] [place] [address] Jun, [facility] [place] [facility] [address] [id number] [place] [address] Jun, [facility] [place] [facility] [address] [id number] [place] [address] Jun, [facility] [place] [facility] [address] [id number] [place] [address] 9[address] Jun, [facility] [place] [facility] [address] [id number] [place] [address] 88[address] May, [facility] [place] [facility] [address] [id number] [place] [address] May, [facility] [place] [facility] [address] [id number] [place] [address]- 8897 May, [facility] [place] [facility] [address] [id number] [place] [address] 8[address] May, [facility] [place] [facility] [address] [id number] [place] [address] 244[address] May, [facility] [place] [facility] [address] [id number] [place] [address] May, [facility] [place] [facility] [address] [id number] [place] [address] May, [facility] [place] [facility] [address] [id number] [place] [address] 33[address] May, [facility] [place] [facility] [address] [id number] [place] [address]- 2421 May, [facility] [place] [facility] [address] [id number] [place] [address] 2437 May, [facility] [place] [facility] [address] [id number] [place] [address]- 5238 Apr, [facility] [place] [facility] [address] [id number] [place] [address] 6957 Apr, [facility] [place] [facility] [address] [id number] [place] [address]- 1572 Apr, [facility] [place] [facility] [address] [id number] [place] [address]- 7913 Apr, [facility] [place] [facility] [address] [id number], [place] [address] Apr, [facility] [place] [facility] [address] [id number] [place] [address] 5728 Apr, [facility] [place] [facility] [address] [id number] [place] [address]- 6298 Apr, [facility] [place] [facility] [address] [id number] [place] [address]- 1781 Apr, [facility] [place] [facility] [address] [id number] [place] [address] Apr, [facility] [place] [facility] [address] [id number] [place] [address] Mar, [facility] [place] [facility] [address] [id number] [place] [address] Mar, [facility] [place] [facility] [address] [id number] [place] [address] Mar, [facility] [place] [facility] [address] [id number] [place] [address]- 487[address] Mar, [facility] [place] [facility] [address] [id number] [place] [address] Mar, [facility] [place] [facility] [address] [id number] [place] [address] 0700 Mar, [facility] [place] [facility] [address] [id number] [place] [address] 8923 Mar, [facility] [place] [facility] [address] [id number] [place] [address]- 8069 Mar, [facility] [place] [facility] [address] [id number] [place] [address] 7810 Mar, [facility] [place] [facility] [address] [facility] [id number] [place] [address]- 7774 Mar, [facility] [place] [facility] [address] [id number] [place] [address]- 6513 Feb, 2013 [facility] [place] [facility] [address] [id number] [place] [address]- 1773 23 Feb, 2013 [facility] [place] [facility] [address] [id number] [place] [address]- 74[address] 19 Feb, 2013 [facility] [place] [facility] [address] [id number] [place] [address] Feb, 2013 [facility] [place] [facility] [address] [id number] [place] [address] Feb, [facility] [place] [facility] [address] [id number] [place] [address]- 4[address] Jan, [facility] [place] [facility] [address] [id number] [place] [address]- 4055 Jan, [facility] [place] [facility] [address] [id number] [place] [address]- 9466 Jan, [facility] [place] [facility] [address] [id number] [place] [address] 1120 Jan, [facility] [place] [facility] [address] [id number] [place] [address]- 2128 Jan, [facility] [place] [facility] [address] [id number] [place] [address]- 4157 Jan, [facility] [place] [facility] [address] [id number] [place] [address]- 6979 Jan, [facility] [place] [facility] [address] [id number] [place] [address]- 7328 Jan, [facility] [place] [facility] [address] [id number] [place] [address]- 3633 Jan, [facility] [place] [facility] [address] [id number] [place] [address]- 0771 Dec, [facility] [place] [facility] [address] [id number] [place] [address]- 9662 Dec, [facility] [place] [facility] [address] [id number] [place] [address]- 4144 Dec, [facility] [place] [facility] [address] [id number] [place] [address]- 1765 Dec, [facility] [place] [facility] [address] [id number] [place] [address]- 8332 Dec, [facility] [place] [facility] [address] [id number] [place] [address]- 9085 Dec, [facility] [place] [facility] [address] [id number] [place] [address]- 9208 Dec, [facility] [place] [facility] [address] [id number] [place] [address]- 4475 Dec, [facility] [place] [facility] [address] [id number] [place] [address]- 5128 Nov, [facility] [place] [facility] [address] [id number] [place] [address]- 6084 Nov, [facility] [place] [facility] [address] [id number] [place] [address]- 4593 Nov, [facility] [place] [facility] [address] [id number] [place] [address]- 9831 Nov, [facility] [place] [facility] [address] [id number] [place] [address]- 0967 Nov, [facility] [place] [facility] [address] [id number] [place] [address]- 2787 Nov, [facility] [place] [facility] [address] [id number] [place] [address]- 1296 Nov, [facility] [place] [facility] [address] [id number] [place] [address]- 6314 Nov, [facility] [place] [facility] [address] [id number] [place] [address]- 7380 Nov, [facility] [place] [facility] [address] [id number] [place] [address]- 6189 Nov, [facility] [place] [facility] [address] [id number] [place] [address]- 2079 Nov, [facility] [place] [facility] [address] [id number] [place] [address]- 1528 Nov, [facility] [place] [facility] [address] [id number] [place] [address]- 9252 October, [facility] [place] [facility] [address] [id number] [place] [address]- 6686 October, [facility] [place] [facility] [address] [id number] [place] [address]- 4897 October, [facility] [address] [id number] [place] [address]- 6361 October, [facility] [address] [id number] [place] [address]- 6462 October, [facility] [address] [id number] [place] [address]- 4913 Sep, [facility] [address] [id number] [place] [address]- 8359 Sep, [facility] [address] [id number] [place] [address]- 8687 Sep, [facility] [address] [id number] [place] [address]- 2314 Sep, [facility] [address] [id number] [place] [address]- 8675 Sep, [facility] [address] [id number] [place] [address]- 5290 Sep, [facility] [address] [id number] [place] [address]- 7367 Sep, [facility] [address] [id number] [place] [address]- 6796 Sep, [facility] [address] [id number] [place] [address]- 9285 Sep, [facility] [address] [id number] [place] [address]- 1583 Sep, [facility] [place] [facility] [address] [id number] [place] [address]- 9982 Sep, [facility] [place] [facility] [address] [id number] [place] [address]- 2698 Sep, [facility] [place] [facility] [address] [id number] [place] [address]- 6901 Sep, [facility] [place] [facility] [address] [id number] [place] [address]- 1457 Sep, [facility] [place] [facility] [address] [id number] [place] [address]- 6081 Sep, [facility] [place] [facility] [address] [id number] [place] [address]- 4981 Sep, [facility] [place] [facility] [address] [id number] [place] [address]- 8925 Sep, [facility] [place] [facility] [address] [id number] [place] [address]- 0651 Sep, [facility] [place] [facility] [address] [id number] [place] [address]- 7862 Sep, [facility] [place] [facility] [address] [id number] [place] [address]- 4299 Aug, [facility] [place] [facility] [address] [id number] [place] [address]- 5525 Aug, [facility] [place] [facility] [address] [id number] [place] [address]- 8303 Aug, [facility] [place] [facility] [address] [id number] [place] [address]- 8700 Aug, [facility] [place] [facility] [address] [id number] [place] [address]- 0264 Jun, [facility] [place] [facility] [address] [id number], [place] [address]- 2648 Jun, [facility] [place] [facility] [address] [id number] [place] [address]- 7241 Mar, [facility] [place] [facility] [address] [id number] [place] [address]- 9352 Mar, [facility] [place] [facility] [address] [id number] [place] [address]- 4017 Nov, [facility] [place] [facility] [address] [id number][id number]- [address] Sep, [facility] [address] [id number] [address] Jun, [facility] [address] [id number] [address]796 Jun, [facility] [address] [id number] [address]24 Apr, [facility] [id number], [place] [address]- 3578 Apr, [facility] [id number] [address] [address] Apr, [facility] [id number], [place] [address]- 7528 Mar, [facility] [id number], [place] [address]- 8687 Feb, IMMUNIZATIONS No Known Immunizations SOCIAL HISTORY Never Assessed REASON FOR VISIT Nicotene Patches PLAN OF CARE VITAL SIGNS MEDICATIONS Unknown [...] Zach Muhammad unit 03/2016 Hospitalization History Ghulam fairbanks 30 days
--- OUTSIDE RECORDS SUMMARY | 2018-08-13 18:15 | XMS REPORT ---
Author Author CHAS OLIVIER [facility] Address [address] [place] [address] Care Team Providers Care Alligator Shear Operator Name Role Phone CHAS OLIVIER Unavailable PROBLEMS Type Condition ICD9-CM Code [id number] Code Onset Dates Condition Status SNOMED Code Problem Mild intermittent asthma, uncomplicated J45.20 Active 961507145 Problem Schizoaffective disorder, bipolar type F25.0 Active 32785349 Problem Generalized anxiety disorder F41.1 Active 14346750 Problem Type 2 diabetes mellitus with hyperglycemia E11.65 Active 01357361 Problem care home 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 Active 314438301 Problem Hand eczema L30.9 Active 797310667 Problem Other chronic pain G89.29 Active 63369203 Problem Gastroesophageal reflux disease, esophagitis presence not specified K21.9 Active 848074789 Problem Bulging of cervical intervertebral disc M50.20 Active 467251637 Problem Hypothyroidism E03.9 Active 70942601 Problem Bulge of cervical disc without myelopathy M50.20 Active 066167617 Problem Lumbar facet arthropathy M46.96 Active 120565035 Problem Cervical dysplasia N87.9 Active 76702330 Problem Hypertriglyceridemia E78.1 Active [id number] ALLERGIES No Information ENCOUNTERS Encounter Location Date Diagnosis [facility] [id number] [place] [address] 33909- 6608 Apr, Pain in left shoulder M25.512 and Type 2 diabetes mellitus without complication, without long-term current use of insulin E11.9 [facility] [id number] [place] [address] 79154- 1504 Apr, [facility] [id number] [place] [address] 73359- 1061 05 Apr, 2018 Bulging of cervical intervertebral disc M50.20 and Cervicalgia M54.2 [place] [id number] [place] [address] 27389- 6353 Apr, Type 2 diabetes mellitus with hyperglycemia E11.65 [place] [address] 21155- 0015 Apr, Neck pain M54.2 ; Bulging of cervical intervertebral disc M50.20 ; Pain in left shoulder M25.512 ; Other chronic pain G89.29 ; 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 smoking cessation counseling Z71.6 and Type 2 diabetes mellitus with hyperglycemia E11.65 [place] [address] 69852- 0570 Mar, [place] [address] 37050- 9337 Mar, Diarrhea, unspecified type R19.7 and Type 2 diabetes mellitus without complication, without long-term current use of insulin E11.9 [facility] [address] 15502 -8948 Mar, Sore throat J02.9 and Nausea R11.0 [place] [address] 82054- 6475 Mar, [place] [address] 14260- 3995 Feb, [place] [id number] [place] [address] 26981- 0525 Feb, Type 2 diabetes mellitus with hyperglycemia E11.65 and care home 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 [place] [id number] [place] [address] 45206- 0305 Feb, Type 2 diabetes mellitus without complication, without long- term current use of insulin E11.9 ; Hypertriglyceridemia E78.1 and Gastroesophageal reflux disease, esophagitis presence not specified K21.9 [place] [id number] [place] [address] 00156- 6232 Feb, [place] [address] 60663- 9123 Jan, [facility] [address] [address] Jan, Type 2 diabetes mellitus without complication, without long- term current use of insulin E11.9 [facility] [address] [address] 3462 Dec, [facility] [id number] [place] [address] 59819- 1793 Dec, [facility] [id number] [place] [address] 79151- 0852 Dec, Type 2 diabetes mellitus without complications E11.9 ; manager 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 and BMI 40.0-44.9, adult Z68.41 [place] [id number] [place] [address] 54880- 7602 Dec, Type 2 diabetes mellitus without complication, without long- term current use of insulin E11.9 [facility] [address] [place] [address] 32703- 5714 Dec, [facility] [id number] [place] [address] 43516- 7447 Dec, Type 2 diabetes mellitus without complication, without long- term current use of insulin E11.9 [facility] [address] [address]- 5773 Dec, Type 2 diabetes mellitus without complication, without long- term current use of insulin E11.9 ; Gastroesophageal reflux disease, esophagitis presence not specified K21.9 and BMI 40.0-44.9, adult Z68.41 [facility] [address] [address] 4833 Dec, [facility] [address] [id number] October, Dental examination Z01.20 [facility] [address] [place] [address] 50481- 1787 Sep, [place] [id number] [place] [address] 39110- 8048 Sep, Hypertriglyceridemia E78.1 [place] [address] 19854- 6089 Sep, Hypothyroidism E03.9 ; Prediabetes R73.09 ; Mild intermittent asthma, uncomplicated J45.20 ; Bulge of cervical disc without myelopathy M50.20 ; Other chronic pain G89.29 ; Hand eczema L30.9 ; Right anterior knee pain M25.561 ; Hypertriglyceridemia E78.1 and BMI 40.0-44.9, adult Z68.41 [place] [address] 36883- 1397 Sep, [place] [address] 24795- 2494 Sep, [place] [address] 13327- 3357 Jul, [place] [id number] [place] [address] 86097- 1740 May, Acute non-recurrent maxillary sinusitis J01.00 [facility] [id number] [place] [address] 23428 -5516 Mar, Other viral agents as the cause of diseases classified elsewhere B97.89 and Acute upper respiratory infection, unspecified J06.9 [place] [id number] [place] [address] 17373- 6898 Mar, [place] [id number] [place] [address] 30458- 9535 Mar, Neck pain M54.2 [place] [id number] [place] [address] 69046- 6479 Feb, Bulge of cervical disc without myelopathy M50.20 [place] [id number] [place] [address] 68403- 4348 Feb, Neck pain M54.2 [facility] [address] 00200- 3699 11 Feb, 2017 [facility] [address] 77186- 9006 Feb, Bulge of cervical disc without myelopathy M50.20 ; Hypertriglyceridemia E78.1 ; Hand eczema L30.9 and Hypothyroidism E03.9 [place] [address] 88708- 1369 Jan, [facility] [address] [id number] October, 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 dental examination Z01.20 [place] [address] 05961- 3450 Sep, Generalized abdominal pain R10.84 [place] [address] 69448- 9637 Sep, Schizoaffective disorder, bipolar type F25.0 and Generalized anxiety disorder F41.1 [facility] [address] [place] [address] 59318 -0171 Sep, [facility] [address] [place] [address] 86146 -5099 Sep, Vaginal burning N94.9 and Vaginal mitzi B37.3 [facility] [address] [place] [address] 19921 -6098 Sep, Gastroenteritis K52.9 [facility] [address] 18501 -8896 18 Sep, 2016 Thrush B37.0 [facility] [address] [place] [address] 97941 -1847 15 Sep, 2016 Pharyngitis due to other organism J02.8 [facility] [address] 15450- 7686 Sep, [facility] [place] [address] 28720 -8853 Aug, Cervicalgia M54.[address] 33271- 7389 Aug, Hypothyroidism E03.9 ; Dry skin L85.3 ; Plantar fasciitis, bilateral M72.2 and Other chronic pain G89.29 [facility] [address] 07157 -5318 Aug, Abrasion T14.8 [facility] [address] [id number] Aug, Dental examination Z01.20 [facility] [address] 27749 -9791 Aug, Excessive cerumen in right ear canal H61.21 ; Impacted cerumen of both ears 380.4 and Bronchitis J40 [facility] [address] 20722 -2324 Jul, Bilateral impacted cerumen H61.23 and Acute non-recurrent frontal sinusitis J01.[address] 16109- 9715 May, Schizoaffective disorder, bipolar type F25.0 and Generalized anxiety disorder F41.[address] 53382- 6939 May, [address] 68897- 5537 May, Cervicalgia M54.2 and Hypertriglyceridemia E78.[address] 82865- 7067 May, [address] 65098- 4784 May, STD exposure Z20.2 and Well woman exam Z01.419 [place] [address] [address]- 8167 May, [facility] [address], [place] [address]- 2316 Mar, [facility] [address], [place] [address]- 2662 Dec, Pain in left knee M25.562 [facility] [address] [place] [address] 61806- 2904 Dec, [facility] [address], [place] [address]- 1861 Nov, [facility] [address] [place] [address] 77595- 0660 October, [facility] [id number] [place] [address] 27972- 0356 Aug, [facility] [address], [place] [address]- 6779 Jul, [facility] [address], [place] [address]- 5843 Jul, [facility] [address], [place] [address]- 1868 Jul, Plantar fasciitis M72.2 and 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 [facility] [address], [place] [address]- 6629 Jul, [facility] [address], [place] [address]- 6083 Jun, Plantar fasciitis M72.2 and Physical exam Z00.00 [facility] [address], [place] [address]- 7521 Jun, [facility] [address], [place] [address]- 2696 Jun, [facility] [address], [place] [address]- 3799 Jun, [facility] [address], [place] [address]- 5003 May, [facility] [id number] [place] [address] 676190- 2572 May, Hypertriglyceridemia E78.1 [facility] [id number] [place] [address] 59947- 2867 May, Hypothyroidism E03.9 ; Prediabetes R73.09 and Hypertriglyceridemia E78.1 [facility] [id number] [place] [address] 18608- 5165 May, [facility] [id number] [place] [address] 79540- 1401 May, [facility] [id number] [place] [address] 06522- 7190 May, Hypothyroidism E03.9 ; Prediabetes R73.09 and Hypertriglyceridemia E78.1 [facility] [address] [place] [address] 74468- 5965 Apr, Schizoaffective disorder, bipolar type F25.0 [facility] [address] [place] [address] 47771- 0600 Mar, [facility] [address], [place] [address]- 6228 Mar, [facility] [id number] [place] [address] 40687- 5796 Mar, [facility] [address] [place] [address] 89319- 7967 30 Feb, 2015 [facility] [id number] [place] [address] 93391- 9599 24 Feb, 2015 [facility] [address], [place] [address]- 1191 16 Feb, 2015 [facility] [id number] [place] [address] 87227- 7155 15 Feb, 2015 Screen for STD (sexually transmitted disease) V74.5 ; Counseling on other sexually transmitted diseases V65.45 ; Back pain 724.5 ; Contact with or exposure to venereal diseases V01.6 and Pelvic pain in female 625.9 [facility] [id number] [place] [address] 84797- 4579 15 Feb, 2015 Schizoaffective disorder, unspecified 295.70 and Anxiety state, unspecified 300.00 [facility] [id number] [place] [address] 22181- 9722 14 Feb, 2015 [facility] [address] 92072- 9864 10 Feb, 2015 [facility] [id number] [place] [address] 85572- 6526 03 Feb, 2015 Impacted cerumen of both ears 380.4 and Mild intermittent asthma 493.90 [facility] [id number] [place] [address] 81567- 0340 Feb, [facility] [id number] [place] [address] 55605- 9841 Jan, [facility] [id number] [place] [address] 64366- 3642 Jan, [facility] [id number] [place] [address] 66114- 8009 Jan, [facility] [id number] [place] [address] 57053- 7557 Jan, [facility] [id number] [place] [address] 34664- 6702 Jan, [facility] [id number] [place] [address] 34269- 7873 Jan, [facility] [id number] [place] [address] 55715- 6140 Jan, [facility] [address], [place] [address]- 8660 Jan, [facility] [address], [place] [address]- 2216 Jan, [facility] [address], [place] [address]- 7163 Jan, [facility] [id number] [place] [address] 16652- 3076 Jan, [facility] [address], [place] [address]- 0697 Dec, Schizoaffective disorder, unspecified 295.70 [facility] [id number] [place] [address] 78861- 9510 Dec, [facility] [id number] [place] [address] 93411- 9965 Dec, [facility] [id number] [place] [address] 74672- 6009 Dec, [facility] [address], [place] [address]- 0569 Dec, [facility] [address], [place] [address]- 4822 Dec, [facility] [address] [address] Dec, Dental examination V72.2 [facility] [address], [place] [address]- 8484 Dec, Schizoaffective disorder, unspecified 295.70 ; Persistent disorder of initiating 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.42 and Anxiety state, unspecified 300.00 [facility] [address], [place] [address]- 2249 Dec, [facility] [address], [place] [address]- 7022 Nov, High risk medication use V58.69 [facility] [address], [place] [address]- 8124 Nov, [facility] [id number] [place] [address] 34545- 0609 Nov, [facility] [address], [place] [address]- 9503 Nov, High risk medication use V58.69 [facility] [id number] [place] [address] 19697- 3155 Nov, [facility] [address] [place] [address] 36226- 4243 Nov, [facility] [id number] [place] [address] 81286- 8675 Nov, [facility] [id number] [place] [address] 03178- 8937 Nov, Hypothyroidism 244.9 ; Hypertriglyceridemia 272.1 and Prediabetes 790.29 [facility] [id number] [place] [address] 41190- 3108 Nov, [facility] [id number] [place] [address] 38553- 5526 Nov, [facility] [address] [place] [address] 17311- 5314 Nov, Bulge of cervical disc without myelopathy 722.0 ; Lumbar facet arthropathy 721.3 ; Family history of stroke V17.1 ; Hyperthyroidism 242.90 and 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 long-term current use of medication V58.69 [facility] [address], [place] [address]- 3694 Nov, [facility] [id number] [place] [address] 76856- 6869 October, [facility] [address], [place] [address]- 8216 October, [facility] [id number], [place] [address]- 0864 October, [facility] [address], [place] [address]- 5919 October, [facility] [address], [place] [address]- 5366 October, [facility] [id number] [place] [address] 77807- 8666 October, [facility] [id number] [place] [address] 143240- 3363 October, Schizoaffective disorder, unspecified 295.70 and Persistent disorder of initiating 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.42 [facility] [id number] [place] [address] 57729- 3275 October, Schizoaffective disorder, unspecified 295.70 [facility] [id number] [place] [address] 92752- 0157 October, [facility] [id number] [place] [address] 98493- 9503 October, [facility] [id number] [place] [address] 57429- 3727 October, [facility] [address], [place] [address]- 1949 Sep, Lumbago of lumbar region with sciatica 724.2 and Neck pain 723.1 [facility] [address], [place] [address]- 0214 Sep, [facility] [id number], [place] [address]- 9502 Sep, [facility] [id number] [place] [address] 69936960- 2392 Aug, [facility] [address], [place] [address]- 5435 Aug, [facility] [id number] [place] [address], [place] [address]- 1941 26 Aug, 2014 [facility] [place] [facility] [address] [id number] [place] [address]- 2263 26 Aug, 2014 [facility] [place] [facility] [address] [id number] [place] [address]- 1769 24 Aug, 2014 [facility] [place] [facility] [address] [id number] [place] [address]- 7585 24 Aug, 2014 [facility] [place] [facility] [address] [id number] [place] [address]- 1193 20 Aug, 2014 [facility] [place] [facility] [address] [id number] [place] [address]- 9024 20 Aug, 2014 [facility] [place] [facility] [address] [id number] [place] [address]- 9104 19 Aug, 2014 [facility] [place] [facility] [address] [id number] [place] [address]- 3424 19 Aug, 2014 [facility] [place] [facility] [address] [id number] [place] [address]- 7213 18 Aug, 2014 [facility] [place] [facility] [address] [id number] [place] [address]- 7134 18 Aug, 2014 [facility] [place] [facility] [address] [id number] [place] [address]- 9150 18 Aug, 2014 [facility] [place] [facility] [address] [id number] [place] [address]- 3776 18 Aug, 2014 [facility] [place] [facility] [address] [id number] [place] [address]- 9916 16 Aug, 2014 [facility] [place] [facility] [address] [id number] [place] [address]- 9286 12 Aug, 2014 [facility] [place] [facility] [address] [id number] [place] [address]- 6467 12 Aug, 2014 [facility] [place] [facility] [address] [id number] [place] [address]- 6787 12 Aug, 2014 [facility] [place] [facility] [address] [id number] [place] [address]- 1573 Aug, 2014 [facility] [place] [facility] [address] [id number] [place] [address]- 9091 Aug, 2014 [facility] [place] [facility] [address] [id number] [place] [address]- 5719 Aug, 2014 [facility] [place] [facility] [address] [id number] [place] [address]- 1479 Aug, 2014 [facility] [place] [facility] [address] [id number] [place] [address]- 9141 Aug, 2014 [facility] [place] [facility] [address] [id number] [place] [address]- 4545 Aug, 2014 [facility] [place] [facility] [address] [facility] [id number] [place] [address]- 9438 Aug, 2014 [facility] [place] [facility] [address] [id number] [place] [address]- 7719 Aug, 2014 [facility] [place] [facility] [address] [facility] [id number] [place] [address] Aug, [facility] [place] [facility] [address] [facility] [id number] [place] [address] Jul, 2014 [facility] [place] [facility] [address] [facility] [id number] [place] [address] Jul, 2014 [facility] [place] [facility] [address] [id number] [place] [address] Jul, 2014 [facility] [place] [facility] [address] [id number] [place] [address] Jul, 2014 [facility] [place] [facility] [address] [id number] [place] [address] Jul, 2014 [facility] [place] [facility] [address] [facility] [id number] [place] [address] 17 Jul, 2014 [facility] [place] [facility] [address] [facility] [id number] [address] 17 Jul, 2014 [facility] [place] [facility] [address] [id number] [place] [address] Jul, [facility] [place] [facility] [address] [id number] [place] [address] Jul, 2014 [facility] [place] [facility] [address] [id number] [place] [address] Jul, [facility] [place] [facility] [address] [id number] [place] [address] Jun, [facility] [place] [facility] [address] [id number] [place] [address] Jun, [facility] [place] [facility] [address] [id number] [place] [address] Jun, [facility] [place] [facility] [address] [id number] [place] [address] Jun, [facility] [place] [facility] [address] [id number] [place] [address] Jun, [facility] [place] [facility] [address] [facility] [id number] [place] [address] Jun, [facility] [place] [facility] [address] [facility] [id number] [place] [address] Jun, [facility] [place] [facility] [address] [id number] [place] [address] May, [facility] [place] [facility] [address] [id number] [place] [address] May, [facility] [place] [facility] [address] [id number] [place] [address] May, [facility] [place] [facility] [address] [id number] [place] [address] May, [facility] [place] [facility] [address] [id number] [place] [address] May, [facility] [place] [facility] [address] [id number] [place] [address] May, [facility] [place] [facility] [address] [id number] [place] [address] May, [facility] [place] [facility] [address] [id number] [place] [address] May, [facility] [place] [facility] [address] [id number] [place] [address] May, [facility] [place] [facility] [address] [id number] [place] [address] May, [facility] [place] [facility] [address] [id number] [place] [address] Apr, [facility] [place] [facility] [address] [id number] [place] [address] Apr, [facility] [place] [facility] [address] [id number] [place] [address] Apr, [facility] [place] [facility] [address] [id number] [place] [address] Apr, [facility] [place] [facility] [address] [id number] [place] [address] Apr, [facility] [place] [facility] [address] [id number] [place] [address] Apr, [facility] [place] [facility] [address] [id number] [place] [address] Apr, [facility] [place] [facility] [address] [id number] [place] [address] Apr, [facility] [place] [facility] [address] [id number] [place] [address] Apr, [facility] [place] [facility] [address] [id number] [place] [address] Mar, [facility] [place] [facility] [address] [id number] [place] [address] Mar, [facility] [place] [facility] [address] [id number] [place] [address] Mar, [facility] [place] [facility] [address] [id number] [place] [address] Mar, [facility] [place] [facility] [address] [id number] [place] [address]44 Mar, [facility] [place] [facility] [address] [id number] [place] [address] Mar, [facility] [place] [facility] [address] [id number] [place] [address] Mar, [facility] [place] [facility] [address] [id number] [place] [address] Mar, [facility] [place] [facility] [address] [id number] [place] [address]79 Mar, [facility] [place] [facility] [address] [id number] [place] [address] Mar, [facility] [place] [facility] [address] [id number] [place] [address] Feb, [facility] [place] [facility] [address] [id number] [place] [address] Feb, [facility] [place] [facility] [address] [id number] [place] [address] Feb, [facility] [place] [facility] [address] [id number] [place] [address] Feb, [facility] [place] [facility] [address] [id number] [place] [address] Feb, [facility] [place] [facility] [address] [id number] [place] [address] Jan, [facility] [place] [facility] [address] [id number] [place] [address] Jan, [facility] [place] [facility] [address] [id number] [place] [address] Jan, [facility] [place] [facility] [address] [id number] [place] [address] Jan, [facility] [place] [facility] [address] [id number] [place] [address] Jan, [facility] [place] [facility] [address] [id number] [place] [address] 86[address] Jan, [facility] [place] [facility] [address] [id number] [place] [address] Jan, [facility] [place] [facility] [address] [id number] [place] [address] Jan, [facility] [place] [facility] [address] [id number] [place] [address]658 Jan, [facility] [place] [facility] [address] [id number] [place] [address]48 Dec, [facility] [place] [facility] [address] [id number] [place] [address] Dec, [facility] [place] [facility] [address] [id number] [place] [address]40 Dec, [facility] [place] [facility] [address] [id number] [place] [address] Dec, [facility] [place] [facility] [address] [id number] [place] [address] Dec, [facility] [place] [facility] [address] [id number] [place] [address]- 6766 Dec, [facility] [place] [facility] [address] [id number] [place] [address] 1554 Dec, [facility] [place] [facility] [address] [id number] [place] [address]- 4666 Dec, [facility] [place] [facility] [address] [id number] [place] [address] Nov, [facility] [place] [facility] [address] [id number] [place] [address] Nov, [facility] [place] [facility] [address] [id number] [place] [address] Nov, [facility] [place] [facility] [address] [id number] [place] [address]- 7890 Nov, [facility] [place] [facility] [address] [id number] [place] [address]- 7569 Nov, [facility] [place] [facility] [address] [id number] [place] [address]- 6315 Nov, [facility] [place] [facility] [address] [id number] [place] [address]- 1553 Nov, [facility] [place] [facility] [address] [id number] [place] [address]- 6517 Nov, [facility] [place] [facility] [address] [id number] [place] [address]- [address]678 Nov, [facility] [place] [facility] [address] [id number] [place] [address]- 7682 Nov, [facility] [place] [facility] [address] [id number] [place] [address]- 2602 Nov, [facility] [place] [facility] [address] [id number] [place] [address]7 Nov, [facility] [place] [facility] [address] [id number], [place] [address] October, [facility] [place] [facility] [address] [id number] [place] [address]048 October, [facility] [place] [facility] [address] [id number] [place] [address] 67[address] October, [facility] [place] [facility] [address] [id number] [place] [address] 30[address] October, [facility] [place] [facility] [address] [id number], [place] [address] October, [facility] [address] [id number] [place] [address]13 Sep, [facility] [place] [facility] [address] [id number] [place] [address]654 Sep, [facility] [place] [facility] [address] [id number] [place] [address]- 0021 Sep, [facility] [place] [facility] [address] [id number] [place] [address]- 7103 Sep, [facility] [place] [facility] [address] [id number] [place] [address]- 5538 Sep, [facility] [place] [facility] [address] [id number] [place] [address]- 8267 Sep, [facility] [place] [facility] [address] [id number] [place] [address]- [address]103 Sep, [facility] [place] [facility] [address] [id number] [place] [address]- 3647 Sep, [facility] [place] [facility] [address] [id number] [place] [address]- 3326 Sep, [facility] [place] [facility] [address] [id number] [place] [address]- 6376 Sep, [facility] [place] [facility] [address] [id number] [place] [address]- 2946 Sep, [facility] [place] [facility] [address] [id number] [place] [address]- 0727 Sep, [facility] [place] [facility] [address] [id number] [place] [address]- 2654 Sep, [facility] [place] [facility] [address] [id number] [place] [address]- 1014 Sep, [facility] [place] [facility] [address] [id number] [place] [address]- 9951 Sep, [facility] [place] [facility] [address] [id number] [place] [address]- 5904 Sep, [facility] [place] [facility] [address] [id number] [place] [address]- 5014 Sep, [facility] [place] [facility] [address] [id number] [place] [address]- 1437 Sep, [facility] [place] [facility] [address] [id number] [place] [address]- 5521 Sep, [facility] [place] [facility] [address] [id number] [place] [address]- 1734 Aug, [facility] [place] [facility] [address] [id number] [place] [address]- 8267 Aug, [facility] [place] [facility] [address] [id number] [place] [address]- 2020 Aug, [facility] [place] [facility] [address] [id number] [place] [address]- 2634 Aug, [facility] [place] [facility] [address] [id number] [place] [address]- 5319 Jun, [facility] [place] [facility] [address] [id number] [place] [address]- 8605 Jun, [facility] [place] [facility] [address] [id number] [place] [address]- 4286 Mar, [facility] [place] [facility] [address] [id number] [place] [address]- 6550 15 Mar, 2013 [facility] [place] [facility] [address] [id number] [place] [address]- [address]113 Nov, [facility] [place] [facility] [address] [id number] [place] [address]- 7614 Sep, [facility] [place] [facility] [address] [id number] [place] [address]- [address]127 30 Jun, 2012 [facility] [place] [facility] [address] [id number] [place] [address] Jun, [facility] [address] [facility] [id number], [place] [address] Apr, [facility] [address] [id number], [place] [address] Apr, [facility] [address] [facility] [id number], [place] [address]- [address]46 Apr, [facility] [address] [id number], [place] [address] Mar, [facility] [address] [facility] [id number], [place] [address] Feb, IMMUNIZATIONS No Known Immunizations SOCIAL HISTORY Never Assessed REASON FOR VISIT medication refill PLAN OF CARE VITAL SIGNS MEDICATIONS Medication Instructions Dosage Frequency Start Date End Date Duration Status Ibuprofen 600 MG Orally Three times a day 1 tablet with food or milk as needed 8h 30 days Active MetFORMIN HCl ER 500 mg Orally twice a day 1 tablet 12h Active RESULTS No Results PROCEDURES No Known [...]
--- OUTSIDE RECORDS SUMMARY | 2018-08-13 18:16 | XMS REPORT ---
Author Author CHAS OLIVIER [facility] Address [address] [place] [address] Care Team Providers Care Associate Professor Physician Name Role Phone CHAS OLIVIER Unavailable PROBLEMS Type Condition ICD9-CM Code TCR94-VF Code Onset Dates Condition Status SNOMED Code Problem Mild intermittent asthma, uncomplicated J45.20 Active 261737556 Problem Schizoaffective disorder, bipolar type F25.0 Active 79088006 Problem Generalized anxiety disorder F41.1 Active 09238325 Problem Type 2 diabetes mellitus with hyperglycemia E11.65 Active 17022678 Problem prison 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 Active 078965289 Problem Hand eczema L30.9 Active 823626658 Problem Other chronic pain G89.29 Active 01932735 Problem Gastroesophageal reflux disease, esophagitis presence not specified K21.9 Active 676004132 Problem Bulging of cervical intervertebral disc M50.20 Active 282690033 Problem Hypothyroidism E03.9 Active 04020464 Problem Bulge of cervical disc without myelopathy M50.20 Active 968027480 Problem Lumbar facet arthropathy M46.96 Active 036828254 Problem Cervical dysplasia N87.9 Active 60277229 Problem Hypertriglyceridemia E78.1 Active 190844398 ALLERGIES No Information ENCOUNTERS Encounter Location Date Diagnosis [facility] [id number] [place] [address] 08672- 7012 Apr, [facility] [address] [address] 6784 Apr, Bulging of cervical intervertebral disc M50.20 and Cervicalgia M54.2 [facility] [address] [address] 7138 Apr, Type 2 diabetes mellitus with hyperglycemia E11.65 [facility] [address] [place] [address] 74787- 9003 Apr, Neck pain M54.2 ; Bulging of cervical intervertebral disc M50.20 ; Pain in left shoulder M25.512 ; Other chronic pain G89.29 ; 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 smoking cessation counseling Z71.6 and Type 2 diabetes mellitus with hyperglycemia E11.65 [facility] [id number] [place] [address] 63032- 4395 Mar, [facility] [address] 64793- 8320 Mar, Diarrhea, unspecified type R19.7 and Type 2 diabetes mellitus without complication, without long-term current use of insulin E11.9 [facility] [address] 6[address] -[address]22 Mar, Sore throat J02.9 and Nausea R11.0 [facility] [address] 85581- 0739 Mar, [facility] [id number] [place] [address] 82117- 5843 Feb, [facility] [address] 63683- 7472 10 Feb, 2018 Type 2 diabetes mellitus with hyperglycemia E11.65 and prison 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 [facility] [id number] [place] [address] 59621- 0558 Feb, Type 2 diabetes mellitus without complication, without long- term current use of insulin E11.9 ; Hypertriglyceridemia E78.1 and Gastroesophageal reflux disease, esophagitis presence not specified K21.9 [facility] [id number] [place] [address] 12541- 0229 Feb, [facility] [id number] [place] [address] 22930- 7226 Jan, [facility] [id number] [place] [address] 71687- 2272 Jan, Type 2 diabetes mellitus without complication, without long- term current use of insulin E11.9 [facility] [address] [address] 2343 Dec, [facility] [id number] [place] [address] 35354- 1994 Dec, [facility] [id number] [place] [address] 91983- 2273 Dec, Type 2 diabetes mellitus without complications E11.9 ; 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 and BMI 40.0-44.9, adult Z68.41 [facility] [address] [place] [address] 62777- 4065 Dec, Type 2 diabetes mellitus without complication, without long- term current use of insulin E11.9 [facility] [id number] [place] [address] 18606- 1020 Dec, [facility] [id number] [place] [address] 33881- 7235 Dec, Type 2 diabetes mellitus without complication, without long- term current use of insulin E11.9 [facility] [address] [place] [address] 02019- 4199 Dec, Type 2 diabetes mellitus without complication, without long- term current use of insulin E11.9 ; Gastroesophageal reflux disease, esophagitis presence not specified K21.9 and BMI 40.0-44.9, adult Z68.41 [facility] [address] [place] [address] 71662- 0383 Dec, [facility] [address] [place] [address] [id number] October, Dental examination Z01.20 [facility] [id number] [place] [address] 20652- 4792 Sep, [facility] [id number] [place] [address] 79734- 1938 Sep, Hypertriglyceridemia E78.1 [facility] [id number] [place] [address] 78477- 4898 Sep, Hypothyroidism E03.9 ; Prediabetes R73.09 ; Mild intermittent asthma, uncomplicated J45.20 ; Bulge of cervical disc without myelopathy M50.20 ; Other chronic pain G89.29 ; Hand eczema L30.9 ; Right anterior knee pain M25.561 ; Hypertriglyceridemia E78.1 and BMI 40.0-44.9, adult Z68.41 [facility] [address] 88192- 8510 Sep, [facility] [address] 61269- 9084 Sep, [facility] [address] 71027- 3862 Jul, [facility] [address] 38594- 9988 May, Acute non-recurrent maxillary sinusitis J01.00 [facility] [address] 55336 -0754 Mar, Other viral agents as the cause of diseases classified elsewhere B97.89 and Acute upper respiratory infection, unspecified J06.9 [facility] [id number] [place] [address] 08133- 8651 Mar, [facility] [id number] [place] [address] 40159- 1925 Mar, Neck pain M54.2 [facility] [address] 63201- 3867 27 Feb, 2017 Bulge of cervical disc without myelopathy M50.20 [facility] [address] 49951- 7745 22 Feb, 2017 Neck pain M54.2 [facility] [id number] [place] [address] 66926- 8961 11 Feb, 2017 [facility] [address] 82541- 9687 Feb, Bulge of cervical disc without myelopathy M50.20 ; Hypertriglyceridemia E78.1 ; Hand eczema L30.9 and Hypothyroidism E03.9 [facility] [address] 54494- 8071 Jan, [facility] [address] [id number] October, 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 dental examination Z01.20 [facility] [address] 71651- 9233 Sep, Generalized abdominal pain R10.84 [facility] [address] 09766- 8635 Sep, Schizoaffective disorder, bipolar type F25.0 and Generalized anxiety disorder F41.1 [facility] [address] [place] [address] 43389 -6790 Sep, [facility] [address] [place] [address] 30492 -5834 Sep, Vaginal burning N94.9 and Vaginal mitzi B37.3 [facility] [address] [place] [address] 41865 -3183 Sep, Gastroenteritis K52.9 [facility] [address] [place] [address] 82952 -4037 Sep, Thrush B37.0 [facility] [address] [place] [address] 79731 -2884 Sep, Pharyngitis due to other organism J02.8 [facility] [address] 42496- 6181 Sep, [facility] [address] [place] [address] 57645 -1781 Aug, Cervicalgia M54.2 [facility] [address] 11233- 5706 Aug, Hypothyroidism E03.9 ; Dry skin L85.3 ; Plantar fasciitis, bilateral M72.2 and Other chronic pain G89.29 [facility] [address] 27956 -1619 Aug, Abrasion T14.8 [facility] [address] [id number] Aug, Dental examination Z01.20 [facility] [address] 34146 -9238 Aug, Excessive cerumen in right ear canal H61.21 ; Impacted cerumen of both ears 380.4 and Bronchitis J40 [facility] [address] 94183 -3177 Jul, Bilateral impacted cerumen H61.23 and Acute non-recurrent frontal sinusitis J01.[address] 38880- 6328 May, Schizoaffective disorder, bipolar type F25.0 and Generalized anxiety disorder F41.[address] 42517- 1068 May, [address] 31108- 7492 May, Cervicalgia M54.2 and Hypertriglyceridemia E78.[address] 64306- 8019 May, [address] 03888- 2465 May, STD exposure Z20.2 and Well woman exam Z01.[address] 26978- 2199 May, [address] 43297- 5398 Mar, [address] [id number] [address] 5041 Dec, Pain in left knee M25.562 [facility] [address] [address]- 2349 Dec, [facility] [address], [place] [address]- 6339 Nov, [facility] [id number] [place] [address] 35375- 8419 October, [facility] [address], [place] [address]- 5249 Aug, [facility] [id number] [place] [address] 49382- 6043 Jul, [facility] [id number] [place] [address] 38061- 9973 Jul, [facility] [id number] [place] [address] 40103- 0692 Jul, Plantar fasciitis M72.2 and 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 [facility] [address], [place] [address]- 0828 Jul, [facility] [address], [place] [address]- 9437 Jun, Plantar fasciitis M72.2 and Physical exam Z00.00 [facility] [address], [place] [address]- 1871 Jun, [facility] [address], [place] [address]- 9888 Jun, [facility] [address], [place] [address]- 1357 Jun, [facility] [address], [place] [address]- 2691 May, [facility] [id number] [place] [address] 38664- 3852 17 May, 2015 Hypertriglyceridemia E78.1 [facility] [id number] [place] [address] 24581- 8955 16 May, 2015 Hypothyroidism E03.9 ; Prediabetes R73.09 and Hypertriglyceridemia E78.1 [facility] [id number] [place] [address] 23842- 5070 May, [facility] [id number] [place] [address] 24172- 4830 May, [facility] [id number] [place] [address] 19733- 4613 May, Hypothyroidism E03.9 ; Prediabetes R73.09 and Hypertriglyceridemia E78.1 [facility] [id number] [place] [address] 17455- 0114 Apr, Schizoaffective disorder, bipolar type F25.0 [facility] [id number] [place] [address] 34370- 6688 Mar, [facility] [id number] [place] [address] 64882- 0839 Mar, [facility] [id number] [place] [address] 10657- 4781 Mar, [facility] [address] [place] [address] 20661- 4417 30 Feb, 2015 [facility] [id number] [place] [address] 24297- 7722 24 Feb, 2015 [facility] [id number] [place] [address] 86318- 1521 16 Feb, 2015 [facility] [id number] [place] [address] 39614- 3855 15 Feb, 2015 Screen for STD (sexually transmitted disease) V74.5 ; Counseling on other sexually transmitted diseases V65.45 ; Back pain 724.5 ; Contact with or exposure to venereal diseases V01.6 and Pelvic pain in female 625.9 [facility] [id number] [place] [address] 53949- 4419 15 Feb, 2015 Schizoaffective disorder, unspecified 295.70 and Anxiety state, unspecified 300.00 [facility] [id number] [place] [address] 58194- 5600 14 Feb, 2015 [facility] [address] 84504- 3109 10 Feb, 2015 [facility] [id number] [place] [address] 27694- 6781 03 Feb, 2015 Impacted cerumen of both ears 380.4 and Mild intermittent asthma 493.90 [facility] [id number] [place] [address] 66195- 1136 Feb, [facility] [id number] [place] [address] 40899- 7117 Jan, [facility] [id number] [place] [address] 75019- 6982 Jan, [facility] [id number] [place] [address] 48367- 1940 Jan, [facility] [id number] [place] [address] 82858- 7302 Jan, [facility] [id number] [place] [address] 15954- 4648 Jan, [facility] [id number] [place] [address] 95231- 4807 Jan, [facility] [id number] [place] [address] 20332- 6332 Jan, [facility] [id number] [place] [address] 92381- 1025 Jan, [facility] [id number] [place] [address] 38421- 0453 Jan, [facility] [address], [place] [address]- 4722 Jan, [facility] [address]- 1462 Jan, [facility] [address]- 7421 Dec, Schizoaffective disorder, unspecified 295.70 [facility] [address]- 5674 Dec, [facility] [address], [place] [address]- 2662 Dec, [facility] [address], [place] [address]- 1133 Dec, [facility] [address], [place] [address]- 7208 Dec, [facility] [address], [place] [address]- 4548 Dec, [facility] [address] [address] Dec, Dental examination V72.2 [facility] [address], [place] [address]- 2085 Dec, Schizoaffective disorder, unspecified 295.70 ; Persistent disorder of initiating 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.42 and Anxiety state, unspecified 300.00 [facility] [address]- 8686 Dec, [facility] [address] 8412 Nov, High risk medication use V58.69 [facility] [address] [address]- 8492 Nov, [facility] [address]- 3458 Nov, [facility] [address], [place] [address]- 5275 Nov, High risk medication use V58.69 [facility] [id number] [place] [address] 77900- 8953 Nov, [facility] [address], [place] [address]- 3594 Nov, [facility] [id number] [place] [address] 19025- 0395 Nov, [facility] [id number] [place] [address] 46635- 4416 Nov, Hypothyroidism 244.9 ; Hypertriglyceridemia 272.1 and Prediabetes 790.29 [facility] [id number] [place] [address] 22108- 8071 Nov, [facility] [id number] [place] [address] 44576- 9855 Nov, [facility] [address] [place] [address] 20436- 5574 Nov, Bulge of cervical disc without myelopathy 722.0 ; Lumbar facet arthropathy 721.3 ; Family history of stroke V17.1 ; Hyperthyroidism 242.90 and 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 long-term current use of medication V58.69 [facility] [address], [place] [address]- 9942 Nov, [facility] [address], [place] [address]- 3560 October, [facility] [address], [place] [address]- 5356 October, [facility] [address], [place] [address]- 6674 October, [facility] [address], [place] [address]- 5673 October, [facility] [id number] [address]- 6165 October, [facility] [address], [place] [address]- 6974 October, [facility] [address] [address]- 0310 October, Schizoaffective disorder, unspecified 295.70 and Persistent disorder of initiating 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.42 [facility] [address], [place] [address]- 8421 October, Schizoaffective disorder, unspecified 295.70 [facility] [id number] [place] [address] 801002- 8988 October, [facility] [address]- 8505 October, [facility] [address], [place] [address]- 8250 October, [facility] [address], [place] [address]- 3629 Sep, Lumbago of lumbar region with sciatica 724.2 and Neck pain 723.1 [facility] [address], [place] [address]- 8917 Sep, [facility] [address], [place] [address]- 5512 Sep, [facility] [address], [place] [address]- 8239 Aug, [facility] [address], [place] [address]- 9993 Aug, [facility] [address]- 6870 Aug, [facility] [address] 8894 Aug, [facility] [id number] [place] [address]- 3320 24 Aug, 2014 [facility] [place] [facility] [address] [id number] [place] [address]- 4819 24 Aug, 2014 [facility] [place] [facility] [address] [id number] [place] [address]- 0757 20 Aug, 2014 [facility] [place] [facility] [address] [id number] [place] [address]- 6429 20 Aug, 2014 [facility] [place] [facility] [address] [id number] [place] [address]- 2391 19 Aug, 2014 [facility] [place] [facility] [address] [id number] [place] [address]- 3573 19 Aug, 2014 [facility] [place] [facility] [address] [id number] [place] [address]- 1065 18 Aug, 2014 [facility] [place] [facility] [address] [id number] [place] [address]- 5536 18 Aug, 2014 [facility] [place] [facility] [address] [id number] [place] [address]- 5081 18 Aug, 2014 [facility] [place] [facility] [address] [id number] [place] [address]- 3368 18 Aug, 2014 [facility] [place] [facility] [address] [id number] [place] [address]- 5492 16 Aug, 2014 [facility] [place] [facility] [address] [id number] [place] [address]- 2922 12 Aug, 2014 [facility] [place] [facility] [address] [id number] [place] [address]- 0470 12 Aug, 2014 [facility] [place] [facility] [address] [id number] [place] [address]- 0738 12 Aug, 2014 [facility] [place] [facility] [address] [id number] [place] [address]- 4004 12 Aug, 2014 [facility] [place] [facility] [address] [id number] [place] [address]- 6488 09 Aug, 2014 [facility] [place] [facility] [address] [id number] [place] [address]- 0588 09 Aug, 2014 [facility] [place] [facility] [address] [id number] [place] [address]- 2334 Aug, 2014 [facility] [place] [facility] [address] [id number] [place] [address]- 1963 05 Aug, 2014 [facility] [place] [facility] [address] [id number] [place] [address]- 3543 Aug, 2014 [facility] [place] [facility] [address] [id number] [place] [address]- 5362 Aug, 2014 [facility] [place] [facility] [address] [id number] [place] [address]- 4366 Aug, 2014 [facility] [place] [facility] [address] [facility] [id number] [place] [address]- 6477 Aug, 2014 [facility] [place] [facility] [address] [id number] [place] [address]- 6947 Jul, 2014 [facility] [place] [facility] [address] [id number] [place] [address]- 8822 Jul, 2014 [facility] [place] [facility] [address] [facility] [id number] [place] [address]- 1863 Jul, 2014 [facility] [place] [facility] [address] [facility] [id number] [place] [address]- 6381 Jul, 2014 [facility] [place] [facility] [address] [id number] [address]- 5916 Jul, 2014 [facility] [place] [facility] [address] [id number] [place] [address] 17 Jul, 2014 [facility] [place] [facility] [address] [id number] [place] [address] 17 Jul, 2014 [facility] [place] [facility] [address] [facility] [id number] [place] [address] 16 Jul, 2014 [facility] [place] [facility] [address] [id number] [place] [address] 16 Jul, 2014 [facility] [address] [id number] [place] [address] Jul, [facility] [address] [id number] [place] [address] Jun, [facility] [address] [id number] [place] [address] Jun, [facility] [address] [id number] [place] [address] Jun, [facility] [address] [id number] [place] [address] Jun, [facility] [address] [id number] [place] [address] Jun, [facility] [address] [id number] [place] [address] Jun, [facility] [address] [id number] [place] [address] Jun, [facility] [address] [id number] [place] [address] May, [facility] [address] [id number] [place] [address] May, [facility] [address] [id number] [place] [address] May, [facility] [address] [id number] [place] [address] May, [facility] [place] [facility] [address] [id number] [place] [address] May, [facility] [address] [id number] [place] [address] May, [facility] [address] [id number] [place] [address] May, [facility] [place] [facility] [address] [id number] [place] [address] May, [facility] [place] [facility] [address] [id number] [place] [address] May, [facility] [place] [facility] [address] [id number] [place] May, [facility] [place] [facility] [address] [id number] [place] [address] Apr, [facility] [place] [facility] [address] [id number] [place] [address] Apr, [facility] [place] [facility] [address] [id number] [place] [address] Apr, [facility] [place] [facility] [address] [id number] [place] [address] Apr, [facility] [place] [facility] [address] [id number] [place] [address] Apr, [facility] [place] [facility] [address] [id number] [place] [address] Apr, [facility] [place] [facility] [address] [id number] [place] [address] Apr, [facility] [place] [facility] [address] [id number] [place] [address] Apr, [facility] [place] [facility] [address] [id number] [place] [address] Apr, [facility] [place] [facility] [address] [id number] [place] [address] Mar, [facility] [place] [facility] [address] [id number] [place] [address] Mar, [facility] [place] [facility] [address] [id number] [place] [address] Mar, [facility] [place] [facility] [address] [id number] [place] [address] Mar, [facility] [place] [facility] [address] [id number] [place] [address] Mar, [facility] [place] [facility] [address] [id number] [place] [address] Mar, [facility] [place] [facility] [address] [id number] [place] [address] Mar, [facility] [place] [facility] [address] [id number] [place] [address] Mar, [facility] [place] [facility] [address] [id number] [place] [address] Mar, [facility] [place] [facility] [address] [id number] [place] [address] Mar, [facility] [place] [facility] [address] [id number] [place] [address] Feb, [facility] [place] [facility] [address] [id number] [place] [address] Feb, [facility] [place] [facility] [address] [id number] [place] [address] Feb, [facility] [place] [facility] [address] [id number] [place] [address] Feb, [facility] [place] [facility] [address] [id number] [place] [address] Feb, [facility] [place] [facility] [address] [id number], [place] [address] Jan, [facility] [place] [facility] [address] [id number] [place] [address] Jan, [facility] [place] [facility] [address] [id number] [place] [address] 268[address] Jan, [facility] [place] [facility] [address] [id number] [place] [address]- 8601 Jan, [facility] [place] [facility] [address] [id number] [place] [address] Jan, [facility] [place] [facility] [address] [id number] [place] [address] Jan, [facility] [place] [facility] [address] [id number] [place] [address] Jan, [facility] [place] [facility] [address] [id number] [place] [address]- [address] Jan, [facility] [place] [facility] [address] [id number] [place] [address] Jan, [facility] [place] [facility] [address] [id number] [place] [address]- [address] Dec, [facility] [place] [facility] [address] [id number] [place] [address] Dec, [facility] [place] [facility] [address] [id number] [place] [address]- [address]18 Dec, [facility] [place] [facility] [address] [id number] [place] [address]- [address] Dec, [facility] [place] [facility] [address] [id number] [place] [address] Dec, [facility] [place] [facility] [address] [id number] [place] [address]159 Dec, [facility] [place] [facility] [address] [id number] [place] [address] Dec, [facility] [place] [facility] [address] [id number] [place] [address]98 Dec, [facility] [place] [facility] [address] [id number] [place] [address] Nov, [facility] [place] [facility] [address] [id number] [place] [address] Nov, [facility] [place] [facility] [address] [id number] [place] [address] Nov, [facility] [place] [facility] [address] [id number] [place] [address]- [address] Nov, [facility] [place] [facility] [address] [id number] [place] [address]598 Nov, [facility] [place] [facility] [address] [id number] [place] [address]- 2021 Nov, [facility] [place] [facility] [address] [id number] [place] [address] Nov, [facility] [place] [facility] [address] [id number] [place] [address]- [address]463 Nov, [facility] [place] [facility] [address] [id number] [place] [address]- 9191 Nov, [facility] [place] [facility] [address] [id number] [place] [address] Nov, [facility] [place] [facility] [address] [id number] [place] [address]- [address]482 Nov, [facility] [place] [facility] [address] [id number] [place] [address]- 89[address] Nov, [facility] [place] [facility] [address] [id number] [place] [address]- [address] October, [facility] [place] [facility] [address] [id number] [place] [address]- 3318 October, [facility] [place] [facility] [address] [id number], [place] [address] October, [facility] [place] [facility] [address] [id number] [place] [address]- [address]238 October, [facility] [place] [facility] [address] [id number] [place] [address]- [address]365 October, [facility] [place] [facility] [address] [id number] [place] [address]- [address] Sep, [facility] [place] [facility] [address] [id number] [place] [address]- [address]446 Sep, [facility] [place] [facility] [address] [id number] [place] [address]- 0[address] Sep, [facility] [place] [facility] [address] [id number] [place] [address]- 7070 Sep, [facility] [place] [facility] [address] [id number] [place] [address]- 6294 Sep, [facility] [place] [facility] [address] [id number] [place] [address]- 5256 Sep, [facility] [place] [facility] [address] [id number] [place] [address]- 1796 Sep, [facility] [place] [facility] [address] [id number] [place] [address]- 9974 Sep, [facility] [place] [facility] [address] [id number] [place] [address]- 486[address] Sep, [facility] [place] [facility] [address] [id number] [place] [address]- 5484 Sep, [facility] [place] [facility] [address] [id number] [place] [address]- [address]164 Sep, [facility] [place] [facility] [address] [id number] [place] [address]- [address] Sep, [facility] [place] [facility] [address] [id number] [place] [address]- 2496 Sep, [facility] [place] [facility] [address] [id number] [place] [address]- 4484 Sep, [facility] [place] [facility] [address] [id number] [place] [address]- 8954 Sep, [facility] [place] [facility] [address] [id number] [place] [address]- [address]551 Sep, [facility] [place] [facility] [address] [id number] [place] [address]- 2365 Sep, [facility] [place] [facility] [address] [id number] [place] [address]- 6659 Sep, [facility] [place] [facility] [address] [id number] [place] [address]- 6060 Sep, [facility] [place] [facility] [address] [id number] [place] [address]- 9643 Aug, [facility] [place] [facility] [address] [id number] [place] [address]- 4594 Aug, [facility] [address] [id number] [place] [address]- [address]751 Aug, [facility] [place] [facility] [address] [id number] [place] [address]- [address]80 Aug, [facility] [address] [id number] [place] [address]- [address] Jun, [facility] [address] [id number] [place] [address]- 4[address] Jun, [facility] [place] [facility] [address] [id number] [place] [address]- 8408 Mar, [facility] [place] [facility] [address] [id number] [place] [address]- 9460 Mar, [facility] [place] [facility] [address] [id number] [place] [address]- 2838 Nov, [facility] [place] [facility] [address] [id number] [place] [address]- 1784 Sep, [facility] [place] [facility] [address] [id number] [place] [address]- 4248 Jun, [facility] [place] [facility] [address] [id number] [place] [address]- 1342 Jun, [facility] [place] [facility] [address] [id number] [place] [address]- 7474 Apr, [facility] [place] [facility] [address] [id number] [place] [address]- [address] Apr, [facility] [address] [facility] [id number] [place] [address]- [address] Apr, [facility] [address] [facility] [id number], [place] [address] Mar, [facility] [address] [facility] [id number] [place] [address]70 Feb, IMMUNIZATIONS No Known Immunizations SOCIAL HISTORY Never Assessed REASON FOR VISIT Victoza f/u PLAN OF CARE VITAL SIGNS MEDICATIONS Unknown [...] History [facility] 03/2016 Hospitalization History [facility] x 30 days
--- OUTSIDE RECORDS SUMMARY | 2018-08-13 18:16 | XMS REPORT ---
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 Name Role Phone CHAS OLIVIER Unavailable PROBLEMS Type Condition ICD9-CM Code OID24-SB Code Onset Dates Condition Status SNOMED Code Problem Mild intermittent asthma, uncomplicated J45.20 Active 157698229 Problem Schizoaffective disorder, bipolar type F25.0 Active 67795812 Problem Generalized anxiety disorder F41.1 Active 73320703 Problem Type 2 diabetes mellitus with hyperglycemia E11.65 Active 43642363 Problem senior care 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 Active 233745325 Problem Hand eczema L30.9 Active 262382473 Problem Other chronic pain G89.29 Active 42071350 Problem Gastroesophageal reflux disease, esophagitis presence not specified K21.9 Active 939292090 Problem Bulging of cervical intervertebral disc M50.20 Active 028419565 Problem Hypothyroidism E03.9 Active 90773856 Problem Bulge of cervical disc without myelopathy M50.20 Active 345906978 Problem Lumbar facet arthropathy M46.96 Active 734866829 Problem Cervical dysplasia N87.9 Active 20624325 Problem Hypertriglyceridemia E78.1 Active 605729252 ALLERGIES No Information ENCOUNTERS Encounter Location Date Diagnosis [facility] [id number] [place] [address] 84050- 7465 Apr, [facility] [address], [place] [address] 8867 Apr, Bulging of cervical intervertebral disc M50.20 and Cervicalgia M54.2 [facility] [address], [place] [address] 7012 Apr, Type 2 diabetes mellitus with hyperglycemia E11.65 [facility] [address] [place] [address] 48464- 3087 Apr, Neck pain M54.2 ; Bulging of cervical intervertebral disc M50.20 ; Pain in left shoulder M25.512 ; Other chronic pain G89.29 ; 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 smoking cessation counseling Z71.6 and Type 2 diabetes mellitus with hyperglycemia E11.65 [facility] [id number] [place] [address] 96349- 7943 Mar, [facility] [address] 47852- 5432 Mar, Diarrhea, unspecified type R19.7 and Type 2 diabetes mellitus without complication, without long-term current use of insulin E11.9 [facility] [address] 8[address]37 -6195 Mar, Sore throat J02.9 and Nausea R11.0 [facility] [address] 43993- 0353 Mar, [facility] [id number] [place] [address] 81936- 4740 Feb, [facility] [address] 54418- 7446 10 Feb, 2018 Type 2 diabetes mellitus with hyperglycemia E11.65 and senior care 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 [facility] [id number] [place] [address] 84352- 8113 Feb, Type 2 diabetes mellitus without complication, without long- term current use of insulin E11.9 ; Hypertriglyceridemia E78.1 and Gastroesophageal reflux disease, esophagitis presence not specified K21.9 [facility] [id number] [place] [address] 50588- 2747 Feb, [facility] [id number] [place] [address] 67407- 0734 Jan, [facility] [id number] [place] [address] 60032- 2120 Jan, Type 2 diabetes mellitus without complication, without long- term current use of insulin E11.9 [facility] [address] [address] 1450 Dec, [facility] [id number] [place] [address] 06766- 1053 Dec, [facility] [id number] [place] [address] 46260- 2543 Dec, Type 2 diabetes mellitus without complications E11.9 ; 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 and BMI 40.0-44.9, adult Z68.41 [place] [address] [place] [address] 22117- 8594 Dec, Type 2 diabetes mellitus without complication, without long- term current use of insulin E11.9 [place] [id number] [place] [address] 33534- 8303 Dec, [place] [id number] [place] [address] 62369- 1997 Dec, Type 2 diabetes mellitus without complication, without long- term current use of insulin E11.9 [place] [address] [place] [address] 43415- 6059 Dec, Type 2 diabetes mellitus without complication, without long- term current use of insulin E11.9 ; Gastroesophageal reflux disease, esophagitis presence not specified K21.9 and BMI 40.0-44.9, adult Z68.41 [place] [address] [place] [address] 98375- 4547 Dec, [facility] [address] [place] [address] [id number] October, Dental examination Z01.20 [place] [id number] [place] [address] 76854- 3348 Sep, [place] [id number] [place] [address] 85941- 6513 Sep, Hypertriglyceridemia E78.1 [place] [id number] [place] [address] 90454- 9166 Sep, Hypothyroidism E03.9 ; Prediabetes R73.09 ; Mild intermittent asthma, uncomplicated J45.20 ; Bulge of cervical disc without myelopathy M50.20 ; Other chronic pain G89.29 ; Hand eczema L30.9 ; Right anterior knee pain M25.561 ; Hypertriglyceridemia E78.1 and BMI 40.0-44.9, adult Z68.41 [place] [address] 72321- 4035 Sep, [place] [address] 92430- 2231 Sep, [place] [address] 74904- 2546 Jul, [place] [address] 75549- 1900 May, Acute non-recurrent maxillary sinusitis J01.00 [facility] [address] 05283 -3089 Mar, Other viral agents as the cause of diseases classified elsewhere B97.89 and Acute upper respiratory infection, unspecified J06.9 [place] [id number] [place] [address] 95477- 5112 Mar, [place] [id number] [place] [address] 60352- 6707 Mar, Neck pain M54.2 [place] [address] 35036- 7157 27 Feb, 2017 Bulge of cervical disc without myelopathy M50.20 [place] [address] 00099- 5850 22 Feb, 2017 Neck pain M54.2 [place] [id number] [place] [address] 71383- 5163 11 Feb, 2017 [place] [address] 85033- 7474 Feb, Bulge of cervical disc without myelopathy M50.20 ; Hypertriglyceridemia E78.1 ; Hand eczema L30.9 and Hypothyroidism E03.9 [facility] [address] 16228- 1986 Jan, [facility] [address] [id number] October, 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 dental examination Z01.20 [place] [address] 35418- 6401 Sep, Generalized abdominal pain R10.84 [place] [address] 88082- 4032 Sep, Schizoaffective disorder, bipolar type F25.0 and Generalized anxiety disorder F41.1 [facility] [address] [place] [address] 35733 -7690 Sep, [facility] [address] [place] [address] 54172 -6656 Sep, Vaginal burning N94.9 and Vaginal mitzi B37.3 [facility] [address] [place] [address] 72460 -4172 Sep, Gastroenteritis K52.9 [facility] [address] [place] [address] 33529 -3055 Sep, Thrush B37.0 [facility] [address] [place] [address] 67204 -5551 Sep, Pharyngitis due to other organism J02.8 [place] [address] 78568- 9344 Sep, [facility] [address] [place] [address] 59407 -4412 Aug, Cervicalgia M54.2 [place] [address] 99617- 1480 Aug, Hypothyroidism E03.9 ; Dry skin L85.3 ; Plantar fasciitis, bilateral M72.2 and Other chronic pain G89.29 [facility] [address] 15060 -3626 Aug, Abrasion T14.8 [facility] [address] [id number] Aug, Dental examination Z01.20 [facility] [address] 40[address] -5138 Aug, Excessive cerumen in right ear canal H61.21 ; Impacted cerumen of both ears 380.4 and Bronchitis J40 [facility] [address] 21937 -0229 Jul, Bilateral impacted cerumen H61.23 and Acute non-recurrent frontal sinusitis J01.[address] 51889- 9630 May, Schizoaffective disorder, bipolar type F25.0 and Generalized anxiety disorder F41.[address] 94863- 5295 May, [address] 73606- 6853 May, Cervicalgia M54.2 and Hypertriglyceridemia E78.[address] 16647- 5411 May, [address] 44591- 1855 May, STD exposure Z20.2 and Well woman exam Z01.[address] 22661- 8615 May, [address] 27286- 5359 Mar, [address] [id number] [address] 3710 Dec, Pain in left knee M25.562 [facility] [address] [address] 1964 Dec, [facility] [address], [place] [address]- 0738 Nov, [facility] [id number] [place] [address] 38541- 3853 October, [facility] [address], [place] [address]- 9831 Aug, [facility] [id number] [place] [address] 17635- 6227 Jul, [facility] [id number] [place] [address] 16613- 0556 Jul, [facility] [id number] [place] [address] 64416- 1010 Jul, Plantar fasciitis M72.2 and 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 [facility] [address], [place] [address]- 7231 Jul, [facility] [address], [place] [address]- 7997 Jun, Plantar fasciitis M72.2 and Physical exam Z00.00 [facility] [address], [place] [address]- 2683 Jun, [facility] [address], [place] [address]- 2839 Jun, [facility] [address], [place] [address]- 6140 Jun, [facility] [address], [place] [address]- 3533 May, [facility] [id number] [place] [address] 53491- 3837 17 May, 2015 Hypertriglyceridemia E78.1 [facility] [id number] [place] [address] 12476- 6787 16 May, 2015 Hypothyroidism E03.9 ; Prediabetes R73.09 and Hypertriglyceridemia E78.1 [facility] [id number] [place] [address] 96926- 8303 May, [facility] [id number] [place] [address] 76047- 8517 May, [facility] [id number] [place] [address] 24018- 1010 May, Hypothyroidism E03.9 ; Prediabetes R73.09 and Hypertriglyceridemia E78.1 [facility] [id number] [place] [address] 52396- 5788 Apr, Schizoaffective disorder, bipolar type F25.0 [facility] [id number] [place] [address] 16907- 6488 Mar, [facility] [id number] [place] [address] 69253- 8326 Mar, [facility] [id number] [place] [address] 72292- 6594 Mar, [facility] [address] [place] [address] 06436- 0086 30 Feb, 2015 [facility] [id number] [place] [address] 53513- 6243 24 Feb, 2015 [facility] [id number] [place] [address] 06060- 1612 16 Feb, 2015 [facility] [id number] [place] [address] 61992- 5520 15 Feb, 2015 Screen for STD (sexually transmitted disease) V74.5 ; Counseling on other sexually transmitted diseases V65.45 ; Back pain 724.5 ; Contact with or exposure to venereal diseases V01.6 and Pelvic pain in female 625.9 [facility] [id number] [place] [address] 44282- 6172 15 Feb, 2015 Schizoaffective disorder, unspecified 295.70 and Anxiety state, unspecified 300.00 [facility] [id number] [place] [address] 97932- 5262 14 Feb, 2015 [facility] [address] 86133- 3563 10 Feb, 2015 [facility] [id number] [place] [address] 08691- 3556 03 Feb, 2015 Impacted cerumen of both ears 380.4 and Mild intermittent asthma 493.90 [facility] [id number] [place] [address] 97620- 9901 Feb, [facility] [id number] [place] [address] 23327- 5560 Jan, [facility] [id number] [place] [address] 67877- 4807 Jan, [facility] [id number] [place] [address] 19086- 9794 Jan, [facility] [id number] [place] [address] 24261- 6657 Jan, [facility] [id number] [place] [address] 60111- 5474 Jan, [facility] [id number] [place] [address] 66581- 9334 Jan, [facility] [id number] [place] [address] 88138- 4036 Jan, [facility] [id number] [place] [address] 68004- 4804 Jan, [facility] [id number] [place] [address] 05413- 2204 Jan, [facility] [address], [place] [address]- 4471 Jan, [facility] [address]- 3245 Jan, [facility] [address]- 8346 Dec, Schizoaffective disorder, unspecified 295.70 [facility] [address] 8652 Dec, [facility] [address], [place] [address]- 6313 Dec, [facility] [address], [place] [address]- 5572 Dec, [facility] [address], [place] [address]- 8327 Dec, [facility] [address], [place] [address]- 0699 Dec, [facility] [address] [address] Dec, Dental examination V72.2 [facility] [address], [place] [address]- 2599 Dec, Schizoaffective disorder, unspecified 295.70 ; Persistent disorder of initiating 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.42 and Anxiety state, unspecified 300.00 [facility] [address]- 7291 Dec, [facility] [address]- 6579 Nov, High risk medication use V58.69 [facility] [address]- 2795 Nov, [facility] [address]- 1857 Nov, [facility] [address], [place] [address]- 9566 Nov, High risk medication use V58.69 [facility] [id number] [place] [address] 86477- 1560 Nov, [facility] [address], [place] [address]- 3555 Nov, [facility] [id number] [place] [address] 99989- 1033 Nov, [facility] [id number] [place] [address] 81500- 1872 Nov, Hypothyroidism 244.9 ; Hypertriglyceridemia 272.1 and Prediabetes 790.29 [facility] [id number] [place] [address] 19468- 0883 Nov, [facility] [id number] [place] [address] 05583- 0311 Nov, [facility] [address] [place] [address] 25287- 3234 Nov, Bulge of cervical disc without myelopathy 722.0 ; Lumbar facet arthropathy 721.3 ; Family history of stroke V17.1 ; Hyperthyroidism 242.90 and 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 long-term current use of medication V58.69 [facility] [address] [address]- 6435 Nov, [facility] [address], [place] [address]- 7588 October, [facility] [address], [place] [address]- 1813 October, [facility] [address], [place] [address]- 2085 October, [facility] [address], [place] [address]- 7906 October, [facility] [address]- 0721 October, [facility] [address], [place] [address]- 1236 October, [facility] [address]- 4400 October, Schizoaffective disorder, unspecified 295.70 and Persistent disorder of initiating 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.42 [facility] [address] [address]- 3310 October, Schizoaffective disorder, unspecified 295.70 [facility] [id number] [place] [address] 681194- 9354 October, [facility] [address]- 2395 October, [facility] [address], [place] [address]- 7124 October, [facility] [address] [address]- 3358 Sep, Lumbago of lumbar region with sciatica 724.2 and Neck pain 723.1 [facility] [address], [place] [address]- 8945 Sep, [facility] [address], [place] [address]- 5233 Sep, [facility] [address] [address]- 3411 Aug, [facility] [address], [place] [address]- 1276 Aug, [facility] [address] 7847 Aug, [facility] [address]- 6222 Aug, [facility] [id number] [address]- 5496 24 Aug, 2014 [facility] [place] [facility] [address] [id number] [place] [address]- 2482 24 Aug, 2014 [facility] [place] [facility] [address] [id number] [place] [address]- 9069 20 Aug, 2014 [facility] [place] [facility] [address] [id number] [place] [address]- 3676 20 Aug, 2014 [facility] [place] [facility] [address] [id number] [place] [address]- 8713 19 Aug, 2014 [facility] [place] [facility] [address] [id number] [place] [address]- 6210 19 Aug, 2014 [facility] [place] [facility] [address] [id number] [place] [address]- 0324 18 Aug, 2014 [facility] [place] [facility] [address] [id number] [place] [address]- 9537 18 Aug, 2014 [facility] [place] [facility] [address] [id number] [place] [address]- 8006 18 Aug, 2014 [facility] [place] [facility] [address] [id number] [place] [address]- 7571 18 Aug, 2014 [facility] [place] [facility] [address] [id number] [place] [address]- 1330 16 Aug, 2014 [facility] [place] [facility] [address] [id number] [place] [address]- 7121 12 Aug, 2014 [facility] [place] [facility] [address] [id number] [place] [address]- 9291 12 Aug, 2014 [facility] [place] [facility] [address] [id number] [place] [address]- 9298 12 Aug, 2014 [facility] [place] [facility] [address] [id number] [place] [address]- 5607 12 Aug, 2014 [facility] [place] [facility] [address] [id number] [place] [address]- 7758 09 Aug, 2014 [facility] [place] [facility] [address] [id number] [place] [address]- 5202 09 Aug, 2014 [facility] [place] [facility] [address] [id number] [place] [address]- 8392 Aug, 2014 [facility] [place] [facility] [address] [id number] [place] [address]- 7547 05 Aug, 2014 [facility] [place] [facility] [address] [id number] [place] [address]- 4755 Aug, 2014 [facility] [place] [facility] [address] [id number] [place] [address]- 0654 Aug, 2014 [facility] [place] [facility] [address] [id number] [place] [address] Aug, 2014 [facility] [place] [facility] [address] [facility] [id number] [place] [address] Aug, 2014 [facility] [place] [facility] [address] [id number] [place] [address] Jul, 2014 [facility] [place] [facility] [address] [id number] [place] [address] Jul, 2014 [facility] [place] [facility] [address] [facility] [id number] [place] [address] Jul, 2014 [facility] [place] [facility] [address] [facility] [id number] [place] [address] Jul, 2014 [facility] [place] [facility] [address] [id number], [place] [address] Jul, 2014 [facility] [place] [facility] [address] [id number] [place] [address] 17 Jul, 2014 [facility] [place] [facility] [address] [id number] [place] [address] 17 Jul, 2014 [facility] [place] [facility] [address] [facility] [id number] [place] [address] 16 Jul, 2014 [facility] [place] [facility] [address] [id number] [place] [address] 16 Jul, 2014 [facility] [address] [id number] [place] [address] Jul, [facility] [address] [id number] [place] [address] Jun, [facility] [address] [id number] [place] [address] Jun, [facility] [address] [id number] [place] [address] Jun, [facility] [address] [id number] [place] [address] Jun, [facility] [address] [id number] [place] [address] Jun, [facility] [address] [id number] [place] [address] Jun, [facility] [address] [id number] [place] [address] Jun, [facility] [address] [id number] [place] [address] May, [facility] [address] [id number] [place] [address] May, [facility] [address] [id number] [place] [address] May, [facility] [address] [id number] [place] [address] May, [facility] [place] [facility] [address] [id number] [place] [address] May, [facility] [address] [id number] [place] [address] May, [facility] [facility] [address] [id number] [place] [address] May, [facility] [place] [facility] [address] [id number] [place] [address] May, [facility] [place] [facility] [address] [id number] [place] [address] May, [facility] [place] [facility] [address] [id number] [id number] [address] May, [facility] [place] [facility] [address] [id number] [place] [address] Apr, [facility] [place] [facility] [address] [id number] [place] [address] Apr, [facility] [place] [facility] [address] [id number] [place] [address] Apr, [facility] [place] [facility] [address] [id number] [place] [address] Apr, [facility] [place] [facility] [address] [id number] [place] [address] Apr, [facility] [place] [facility] [address] [id number] [place] [address] Apr, [facility] [place] [facility] [address] [id number] [place] [address] Apr, [facility] [place] [facility] [address] [id number] [place] [address] Apr, [facility] [place] [facility] [address] [id number] [place] [address] Apr, [facility] [place] [facility] [address] [id number] [place] [address] Mar, [facility] [place] [facility] [address] [id number] [place] [address] 57[address] Mar, [facility] [place] [facility] [address] [id number] [place] [address] 6[address] Mar, [facility] [place] [facility] [address] [id number] [place] [address] Mar, [facility] [place] [facility] [address] [id number] [place] [address] Mar, [facility] [place] [facility] [address] [id number] [place] [address] Mar, [facility] [place] [facility] [address] [id number] [place] [address]159 Mar, [facility] [place] [facility] [address] [id number] [place] [address]- 2119 Mar, [facility] [place] [facility] [address] [id number] [place] [address]- [address] Mar, [facility] [place] [facility] [address] [id number] [place] [address] Mar, [facility] [place] [facility] [address] [id number] [place] [address] 4[address] Feb, [facility] [place] [facility] [address] [id number] [place] [address]- 130[address] Feb, [facility] [place] [facility] [address] [id number] [place] [address]- 7528 Feb, [facility] [place] [facility] [address] [id number] [place] [address]- 4817 Feb, [facility] [place] [facility] [address] [id number] [place] [address] 8369 Feb, [facility] [place] [facility] [address] [id number], [place] [address] Jan, [facility] [place] [facility] [address] [id number] [place] [address] 37[address] Jan, [facility] [place] [facility] [address] [id number] [place] [address] 3971 Jan, [facility] [place] [facility] [address] [id number] [place] [address]- 8766 Jan, [facility] [place] [facility] [address] [id number] [place] [address]- 1413 Jan, [facility] [place] [facility] [address] [id number] [place] [address] Jan, [facility] [place] [facility] [address] [id number] [place] [address] Jan, [facility] [place] [facility] [address] [id number] [place] [address]- 7545 Jan, [facility] [place] [facility] [address] [id number] [place] [address] Jan, [facility] [place] [facility] [address] [id number] [place] [address]108 Dec, [facility] [place] [facility] [address] [id number] [place] [address] 8044 Dec, [facility] [place] [facility] [address] [id number] [place] [address] 1864 Dec, [facility] [place] [facility] [address] [id number] [place] [address] Dec, [facility] [place] [facility] [address] [id number] [place] [address]- 0165 Dec, [facility] [place] [facility] [address] [id number] [place] [address]- 6024 Dec, [facility] [place] [facility] [address] [id number] [place] [address]- 3972 Dec, [facility] [place] [facility] [address] [id number] [place] [address]- [address]92 Dec, [facility] [place] [facility] [address] [id number] [place] [address] 9[address] Nov, [facility] [place] [facility] [address] [id number] [place] [address] 5935 Nov, [facility] [place] [facility] [address] [id number] [place] [address]- 7494 Nov, [facility] [place] [facility] [address] [id number] [place] [address]- 2532 Nov, [facility] [place] [facility] [address] [id number] [place] [address]- 4475 Nov, [facility] [place] [facility] [address] [id number] [place] [address]- 8151 Nov, [facility] [place] [facility] [address] [id number] [place] [address]- 1769 Nov, [facility] [place] [facility] [address] [id number] [place] [address]- 0216 Nov, [facility] [place] [facility] [address] [id number] [place] [address]- 7416 Nov, [facility] [place] [facility] [address] [id number] [place] [address]- 8245 Nov, [facility] [place] [facility] [address] [id number] [place] [address]- 1197 Nov, [facility] [place] [facility] [address] [id number] [place] [address]- 9110 Nov, [facility] [place] [facility] [address] [id number] [place] [address] 4118 October, [facility] [place] [facility] [address] [id number] [place] [address]- 9790 October, [facility] [place] [facility] [address] [id number], [place] [address] October, [facility] [place] [facility] [address] [id number] [place] [address]- 5938 October, [facility] [place] [facility] [address] [id number] [place] [address]- 1453 October, [facility] [place] [facility] [address] [id number] [place] [address]- 4066 Sep, [facility] [place] [facility] [address] [id number] [place] [address]- 2505 Sep, [facility] [place] [facility] [address] [id number] [place] [address]- 3019 Sep, [facility] [place] [facility] [address] [id number] [place] [address]- 2363 Sep, [facility] [place] [facility] [address] [id number] [place] [address]- 4599 Sep, [facility] [place] [facility] [address] [id number] [place] [address]- 5043 Sep, [facility] [place] [facility] [address] [id number] [place] [address]- 8323 Sep, [facility] [place] [facility] [address] [id number] [place] [address]- 6959 Sep, [facility] [place] [facility] [address] [id number] [place] [address]- 5468 Sep, [facility] [place] [facility] [address] [id number] [place] [address]- 9786 Sep, [facility] [place] [facility] [address] [id number] [place] [address]- 5480 Sep, [facility] [place] [facility] [address] [id number] [place] [address]- 5862 Sep, [facility] [place] [facility] [address] [id number] [place] [address]- 7706 Sep, [facility] [place] [facility] [address] [id number] [place] [address]- 7995 Sep, [facility] [place] [facility] [address] [id number] [place] [address]- 1788 Sep, [facility] [place] [facility] [address] [id number] [place] [address]- 4303 Sep, [facility] [place] [facility] [address] [id number] [place] [address]- 6477 Sep, [facility] [place] [facility] [address] [id number] [place] [address]- 3204 Sep, [facility] [place] [facility] [address] [id number] [place] [address]- 4138 Sep, [facility] [place] [facility] [address] [id number] [place] [address]- 6261 Aug, [facility] [place] [facility] [address] [id number] [place] [address]- 9864 Aug, [facility] [address] [id number] [place] [address]- 6502 Aug, [facility] [place] [facility] [address] [id number] [place] [address]- 9973 Aug, [facility] [address] [id number] [place] [address]- 6891 Jun, [facility] [address] [id number] [place] [address]- 2139 Jun, [facility] [place] [facility] [address] [id number] [place] [address]- 5992 Mar, [facility] [place] [facility] [address] [id number] [place] [address]- 2014 Mar, [facility] [place] [facility] [address] [id number] [place] [address]- 3060 Nov, [facility] [place] [facility] [address] [id number] [place] [address]- 3252 Sep, [facility] [place] [facility] [address] [id number] [place] [address]- 5687 Jun, [facility] [place] [facility] [address] [id number] [place] [address]- 2708 Jun, [facility] [place] [facility] [address] [id number] [place] [address]- 8777 Apr, [facility] [place] [facility] [address] [id number] [place] [address]- 2546 Apr, [facility] [address] [facility] [id number] [place] [address]- 2546 Apr, [facility] [address] [facility] [id number], [place] [address]46 Mar, [facility] [address] [facility] [id number] [place] [address]- [address]46 Feb, IMMUNIZATIONS No Known Immunizations SOCIAL HISTORY Never Assessed REASON FOR VISIT need current MRI PLAN OF CARE Activity Details Pending Test MRI : Cervical w/o Contrast VITAL SIGNS MEDICATIONS Unknown Medications RESULTS No [...]
--- OUTSIDE RECORDS SUMMARY | 2018-08-13 18:17 | XMS REPORT ---
Author Author CHAS OLIVIER [facility] Address [address] [place] [address] Care Team Providers Care Drawing Kiln Supervisor Name Role Phone CHAS OLIVIER Unavailable PROBLEMS Type Condition ICD9-CM Code [id number] Code Onset Dates Condition Status SNOMED Code Problem Mild intermittent asthma, uncomplicated J45.20 Active 208019596 Problem Schizoaffective disorder, bipolar type F25.0 Active 43685681 Problem Generalized anxiety disorder F41.1 Active 09709072 Problem Type 2 diabetes mellitus with hyperglycemia E11.65 Active 63110000 Problem assisted 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 Active 771181554 Problem Hand eczema L30.9 Active 134228032 Problem Other chronic pain G89.29 Active 77425072 Problem Gastroesophageal reflux disease, esophagitis presence not specified K21.9 Active 374890265 Problem Bulging of cervical intervertebral disc M50.20 Active 408195814 Problem Hypothyroidism E03.9 Active 98898064 Problem Bulge of cervical disc without myelopathy M50.20 Active 842681808 Problem Lumbar facet arthropathy M46.96 Active 422346967 Problem Cervical dysplasia N87.9 Active 15662717 Problem Hypertriglyceridemia E78.1 Active 090889431 ALLERGIES Substance Reaction Event Type Date Status Seroquel leg pain Drug Allergy Apr, Active ENCOUNTERS Encounter Location Date Diagnosis [facility] [id number], [place] [address] Apr, Type 2 diabetes mellitus with hyperglycemia E11.65 [facility] [address] [place] [address] 45606- 2865 Apr, Neck pain M54.2 ; Bulging of cervical intervertebral disc M50.20 ; Pain in left shoulder M25.512 ; Other chronic pain G89.29 ; 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 smoking cessation counseling Z71.6 and Type 2 diabetes mellitus with hyperglycemia E11.65 [facility] [id number] [place] [address] 11041- 5282 Mar, [facility] [id number] [place] [address] 05945- 9234 Mar, Diarrhea, unspecified type R19.7 and Type 2 diabetes mellitus without complication, without long-term current use of insulin E11.9 [facility] [id number] [place] [address] 50869 -5291 Mar, Sore throat J02.9 and Nausea R11.0 [facility] [address] 29797- 8741 Mar, [place] [address] 15935- 0822 Feb, [place] [id number] [place] [address] 84327- 9561 Feb, Type 2 diabetes mellitus with hyperglycemia E11.65 and assisted 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 [facility] [id number] [place] [address] 56998- 2702 Feb, Type 2 diabetes mellitus without complication, without long- term current use of insulin E11.9 ; Hypertriglyceridemia E78.1 and Gastroesophageal reflux disease, esophagitis presence not specified K21.9 [facility] [id number] [place] [address] 65060- 7130 Feb, [facility] [id number] [place] [address] 05205- 1596 Jan, [facility] [id number] [place] [address] 05230- 4470 Jan, Type 2 diabetes mellitus without complication, without long- term current use of insulin E11.9 [facility] [id number] [place] [address] 96014- 5069 Dec, [facility] [id number] [place] [address] 27169- 2912 Dec, [place] [address] [place] [address] 28918- 5699 Dec, Type 2 diabetes mellitus without complications E11.9 ; 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 and BMI 40.0-44.9, adult Z68.41 [place] [id number] [place] [address] 04330- 4040 Dec, Type 2 diabetes mellitus without complication, without long- term current use of insulin E11.9 [place] [id number] [place] [address] 00239- 7231 Dec, [place] [id number] [place] [address] 71109- 7938 Dec, Type 2 diabetes mellitus without complication, without long- term current use of insulin E11.9 [place] [id number] [place] [address] 17296- 9228 Dec, Type 2 diabetes mellitus without complication, without long- term current use of insulin E11.9 ; Gastroesophageal reflux disease, esophagitis presence not specified K21.9 and BMI 40.0-44.9, adult Z68.41 [place] [id number] [place] [address] 70434- 6595 Dec, [facility] [id number] [place] [address] [id number] October, Dental examination Z01.20 [place] [id number] [place] [address] 13831- 2589 Sep, [place] [id number] [place] [address] 23423- 8065 Sep, Hypertriglyceridemia E78.1 [place] [id number] [place] [address] 39323- 6571 Sep, Hypothyroidism E03.9 ; Prediabetes R73.09 ; Mild intermittent asthma, uncomplicated J45.20 ; Bulge of cervical disc without myelopathy M50.20 ; Other chronic pain G89.29 ; Hand eczema L30.9 ; Right anterior knee pain M25.561 ; Hypertriglyceridemia E78.1 and BMI 40.0-44.9, adult Z68.41 [place] [address] 04093- 0928 Sep, [place] [address] 79850- 8538 Sep, [place] [address] 93726- 9850 Jul, [place] [address] 19374- 1070 May, Acute non-recurrent maxillary sinusitis J01.00 [facility] [address] 67925 -5151 Mar, Other viral agents as the cause of diseases classified elsewhere B97.89 and Acute upper respiratory infection, unspecified J06.9 [place] [address] 74124- 7621 Mar, [place] [address] 50075- 1571 Mar, Neck pain M54.[address] 86834- 0664 Feb, Bulge of cervical disc without myelopathy M50.20 [place] [address] 95321- 4532 Feb, Neck pain M54.2 [place] [address] 24593- 7386 Feb, [address] 92145- 4000 Feb, Bulge of cervical disc without myelopathy M50.20 ; Hypertriglyceridemia E78.1 ; Hand eczema L30.9 and Hypothyroidism E03.[address] 95529- 1196 Jan, [facility] [id number] [place] [address] [id number] October, 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 dental examination Z01.20 [place] [address] 19350- 5246 Sep, Generalized abdominal pain R10.[address] 34840- 5983 Sep, Schizoaffective disorder, bipolar type F25.0 and Generalized anxiety disorder F41.1 [facility] [address] [place] [address] 48860 -6967 Sep, [facility] [address] [place] [address] 08734 -8544 Sep, Vaginal burning N94.9 and Vaginal mitzi B37.3 [facility] [address] [place] [address] 61890 -0351 Sep, Gastroenteritis K52.9 [facility] [address] [place] [address] 42270 -9295 Sep, Thrush B37.0 [facility] [address] [place] [address] 50344 -4543 Sep, Pharyngitis due to other organism J02.[address] 73812- 2790 Sep, [facility] [address] [place] [address] 33441 -5381 Aug, Cervicalgia M54.[address] 01578- 7489 09 Aug, 2016 Hypothyroidism E03.9 ; Dry skin L85.3 ; Plantar fasciitis, bilateral M72.2 and Other chronic pain G89.29 [facility] [address] [place] [address] 06890 -3618 Aug, Abrasion T14.8 [facility] [address] [place] [address] [id number] Aug, Dental examination Z01.20 [facility] [address] 07193 -2411 Aug, Excessive cerumen in right ear canal H61.21 ; Impacted cerumen of both ears 380.4 and Bronchitis J40 [facility] [address] 40697 -8187 Jul, Bilateral impacted cerumen H61.23 and Acute non-recurrent frontal sinusitis J01.10 [place] [address] 39095- 6512 May, Schizoaffective disorder, bipolar type F25.0 and Generalized anxiety disorder F41.[address] 22828- 4968 May, [place] [address] 28314- 5935 May, Cervicalgia M54.2 and Hypertriglyceridemia E78.1 [place] [address] 85100- 8731 May, [place] [address] 33817- 9905 May, STD exposure Z20.2 and Well woman exam Z01.419 [place] [address] 10320- 7249 May, [place] [address] 69269- 3427 Mar, [place] [address] 60955- 2092 Dec, Pain in left knee M25.[address] 59218- 4923 Dec, [facility] [address], [place] [address]- 2840 Nov, [facility] [id number] [place] [address] 13241- 0478 October, [facility] [address], [place] [address]- 5773 Aug, [facility] [id number] [place] [address] 78357- 6302 Jul, [facility] [address] [place] [address] 86251- 0921 Jul, [facility] [id number] [place] [address] 23202- 8764 Jul, Plantar fasciitis M72.2 and 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 [facility] [id number] [place] [address] 33670- 1582 Jul, [facility] [address] [place] [address] 42856- 7553 Jun, Plantar fasciitis M72.2 and Physical exam Z00.00 [facility] [address], [place] [address]- 2725 Jun, [facility] [address], [place] [address]- 4110 Jun, [facility] [address] [address]- 4617 Jun, [facility] [address], [place] [address]- 3960 May, [facility] [id number] [place] [address] 61026- 0177 May, Hypertriglyceridemia E78.1 [facility] [address], [place] [address]- 5809 May, Hypothyroidism E03.9 ; Prediabetes R73.09 and Hypertriglyceridemia E78.1 [facility] [address] [address]- 1265 May, [facility] [id number] [place] [address] 82063- 7384 May, [facility] [id number] [place] [address] 90610- 5633 May, Hypothyroidism E03.9 ; Prediabetes R73.09 and Hypertriglyceridemia E78.1 [facility] [id number] [place] [address] 66867- 6537 Apr, Schizoaffective disorder, bipolar type F25.0 [facility] [id number] [place] [address] 65860- 1073 Mar, [facility] [id number] [place] [address] 88547- 7371 Mar, [facility] [id number] [place] [address] 88536- 3836 Mar, [facility] [id number] [place] [address] 58176- 1130 Feb, [facility] [id number] [place] [address] 81530- 9829 Feb, [facility] [id number] [place] [address] 52373- 3932 Feb, [facility] [id number] [place] [address] 35816- 4604 Feb, Screen for STD (sexually transmitted disease) V74.5 ; Counseling on other sexually transmitted diseases V65.45 ; Back pain 724.5 ; Contact with or exposure to venereal diseases V01.6 and Pelvic pain in female 625.9 [facility] [address] [place] [address] 93672- 6614 Feb, Schizoaffective disorder, unspecified 295.70 and Anxiety state, unspecified 300.00 [facility] [address] [facility] [id number] [address]- 8349 14 Feb, 2015 [facility] [id number] [place] [address] 67338- 4923 10 Feb, 2015 [facility] [address], [place] [address]- 9359 Feb, Impacted cerumen of both ears 380.4 and Mild intermittent asthma 493.90 [facility] [address] [facility] [id number], [place] [address]- 4530 Feb, [facility] [id number] [place] [address] 71868- 2146 Jan, [facility] [id number] [place] [address] 16072- 2982 Jan, [facility] [id number] [place] [address] 13121- 2865 Jan, [facility] [address], [place] [address]- 9606 Jan, [facility] [address], [place] [address]- 9752 Jan, [facility] [address], [place] [address]- 5071 Jan, [facility] [address], [place] [address]- 6734 Jan, [facility] [address] [facility] [id number], [place] [address]- 5896 Jan, [facility] [id number] [address]- 6695 Jan, [facility] [address] [facility] [id number], [place] [address]- 1792 Jan, [facility] [id number] [address]- 1204 Jan, [facility] [address], [place] [address]- 7644 Dec, Schizoaffective disorder, unspecified 295.70 [facility] [address], [place] [address]- 0890 Dec, [facility] [address], [place] [address]- 6029 Dec, [facility] [address], [place] [address]- 2604 Dec, [facility] [address], [place] [address]- 7826 Dec, [facility] [address], [place] [address]- 4423 Dec, [facility] [address] [address] Dec, Dental examination V72.2 [facility] [address], [place] [address]- 6058 Dec, Schizoaffective disorder, unspecified 295.70 ; Persistent disorder of initiating 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.42 and Anxiety state, unspecified 300.00 [facility] [address], [place] [address]- 5547 Dec, [facility] [address], [place] [address]- 9148 Nov, High risk medication use V58.69 [facility] [address], [place] [address]- 4471 Nov, [facility] [address], [place] [address]- 8848 Nov, [facility] [address], [place] [address]- 3006 Nov, High risk medication use V58.69 [facility] [address], [place] [address]- 7975 Nov, [facility] [address], [place] [address]- 5711 Nov, [facility] [id number] [place] [address] 24755- 9135 Nov, [facility] [id number] [place] [address] 91399- 3565 Nov, Hypothyroidism 244.9 ; Hypertriglyceridemia 272.1 and Prediabetes 790.29 [facility] [id number] [place] [address] 23972- 9837 Nov, [facility] [id number] [place] [address] 71499- 5570 Nov, [facility] [id number] [place] [address] 83119- 9882 Nov, Bulge of cervical disc without myelopathy 722.0 ; Lumbar facet arthropathy 721.3 ; Family history of stroke V17.1 ; Hyperthyroidism 242.90 and 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 long-term current use of medication V58.69 [facility] [address] [address]- 8872 Nov, [facility] [address], [place] [address]- 7584 October, [facility] [address], [place] [address]- 9681 October, [facility] [address], [place] [address]- 1695 October, [facility] [address], [place] [address]- 9897 October, [facility] [address], [place] [address]- 1573 October, [facility] [address], [place] [address]- 4185 October, [facility] [id number] [address]- 2036 October, Schizoaffective disorder, unspecified 295.70 and Persistent disorder of initiating 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.42 [facility] [address] 6243 October, Schizoaffective disorder, unspecified 295.70 [facility] [address] 5387 October, [facility] [id number] [place] [address] [id number]- 4071 October, [facility] [id number] [place] [address] 457940- 6496 October, [facility] [address], [place] [address]- 5716 Sep, Lumbago of lumbar region with sciatica 724.2 and Neck pain 723.1 [facility] [address], [place] [address]- 5783 Sep, [facility] [address] [place] [address] 74042- 1839 Sep, [facility] [address], [place] [address]- 9483 Aug, [facility] [address], [place] [address]- 8196 Aug, [facility] [address]- 7570 Aug, [facility] [address] 6266 Aug, [facility] [address]- 7471 Aug, [facility] [address] 1214 Aug, [facility] [id number] [place] [address]- 3010 20 Aug, 2014 [facility] [place] [facility] [address] [id number] [place] [address]- 1907 20 Aug, 2014 [facility] [place] [facility] [address] [id number] [place] [address]- 6335 19 Aug, 2014 [facility] [place] [facility] [address] [id number] [place] [address]- 8824 19 Aug, 2014 [facility] [place] [facility] [address] [id number] [place] [address]- 8712 18 Aug, 2014 [facility] [place] [facility] [address] [id number] [place] [address]- 1459 18 Aug, 2014 [facility] [place] [facility] [address] [id number] [place] [address]- 7412 18 Aug, 2014 [facility] [place] [facility] [address] [id number] [place] [address]- 0970 18 Aug, 2014 [facility] [place] [facility] [address] [id number] [place] [address]- 4046 16 Aug, 2014 [facility] [place] [facility] [address] [id number] [place] [address]- 9067 12 Aug, 2014 [facility] [place] [facility] [address] [id number] [place] [address]- 2689 Aug, [facility] [place] [facility] [address] [id number] [place] [address]- 8347 12 Aug, 2014 [facility] [place] [facility] [address] [id number] [place] [address]- 7927 Aug, [facility] [place] [facility] [address] [id number] [place] [address]- 6152 09 Aug, 2014 [facility] [place] [facility] [address] [id number] [place] [address]- 5192 09 Aug, 2014 [facility] [place] [facility] [address] [id number] [place] [address]- 9654 06 Aug, 2014 [facility] [place] [facility] [address] [id number] [place] [address]- 6551 05 Aug, 2014 [facility] [place] [facility] [address] [id number] [place] [address]- 1988 Aug, [facility] [place] [facility] [address] [id number] [place] [address]- 6817 Aug, [facility] [place] [facility] [address] [id number] [place] [address]- 3796 Aug, [facility] [place] [facility] [address] [id number] [place] [address]- 0188 Aug, [facility] [place] [facility] [address] [id number] [place] [address]- 4365 Jul, 2014 [facility] [place] [facility] [address] [facility] [id number] [place] [address]- 2277 Jul, 2014 [facility] [place] [facility] [address] [facility] [id number] [place] [address]- 7407 26 Jul, 2014 [facility] [place] [facility] [address] [id number] [place] [address]- 0149 20 Jul, 2014 [facility] [place] [facility] [address] [facility] [id number] [place] [address]- 4847 20 Jul, 2014 [facility] [place] [facility] [address] [facility] [id number] [place] [address]- 6391 17 Jul, 2014 [facility] [place] [facility] [address] [id number] [place] [address]- 0616 17 Jul, 2014 [facility] [place] [facility] [address] [id number] [place] [address]- 1693 16 Jul, 2014 [facility] [place] [facility] [address] [facility] [id number] [place] [address] 16 Jul, 2014 [facility] [place] [facility] [address] [facility] [id number] [place] [address] 13 Jul, 2014 [facility] [place] [facility] [address] [id number] [place] [address] Jun, [facility] [address] [id number] [place] [address] Jun, [facility] [address] [id number] [place] [address] Jun, [facility] [address] [id number] [place] [address] Jun, [facility] [address] [id number] [place] [address] Jun, [facility] [address] [id number] [place] [address] Jun, [facility] [address] [id number] [place] [address] Jun, [facility] [address] [id number] [place] [address] May, [facility] [address] [id number] [place] [address] May, [facility] [address] [id number] [place] [address] May, [facility] [address] [id number] [place] [address] May, [facility] [address] [id number] [place] [address] May, [facility] [address] [id number] [place] [address] May, [facility] [place] [facility] [address] [id number] [place] [address] May, [facility] [address] [id number] [place] [address] May, [facility] [address] [id number] [place] [address] May, [facility] [place] [facility] [address] [id number] [place] [address] May, [facility] [place] [facility] [address] [id number] [place] [address] Apr, [facility] [place] [facility] [address] [id number] [place] [address] Apr, [facility] [place] [facility] [address] [id number] [place] [address] Apr, [facility] [place] [facility] [address] [id number] [place] [address] Apr, [facility] [place] [facility] [address] [id number] [place] [address] Apr, [facility] [place] [facility] [address] [id number] [place] [address] Apr, [facility] [place] [facility] [address] [id number] [place] [address] Apr, [facility] [place] [facility] [address] [id number] [place] [address] Apr, [facility] [place] [facility] [address] [id number] [place] [address] Apr, [facility] [place] [facility] [address] [id number] [place] [address] Mar, [facility] [place] [facility] [address] [id number] [address] Mar, [facility] [place] [facility] [address] [id number] [place] [address] Mar, [facility] [place] [facility] [address] [id number] [place] [address] Mar, [facility] [place] [facility] [address] [id number] [place] [address] Mar, [facility] [place] [facility] [address] [id number] [place] [address] Mar, [facility] [place] [facility] [address] [id number] [place] [address] Mar, [facility] [place] [facility] [address] [id number] [place] [address] Mar, [facility] [place] [facility] [address] [id number] [place] [address] Mar, [facility] [place] [facility] [address] [id number] [place] [address] Mar, [facility] [place] [facility] [address] [id number] [place] [address] Feb, [facility] [place] [facility] [address] [id number] [place] [address] 1987 Feb, [facility] [place] [facility] [address] [id number] [place] [address] Feb, [facility] [place] [facility] [address] [id number] [place] [address] Feb, [facility] [place] [facility] [address] [id number] [place] [address] Feb, [facility] [place] [facility] [address] [id number] [place] [address] Jan, [facility] [place] [facility] [address] [id number] [place] [address] Jan, [facility] [place] [facility] [address] [id number] [place] [address] Jan, [facility] [place] [facility] [address] [id number] [place] [address] Jan, [facility] [place] [facility] [address] [id number] [place] [address] Jan, [facility] [place] [facility] [address] [id number] [place] [address] Jan, [facility] [place] [facility] [address] [id number] [place] [address] Jan, [facility] [place] [facility] [address] [id number] [place] [address] Jan, [facility] [place] [facility] [address] [id number] [place] [address] Jan, [facility] [place] [facility] [address] [id number] [place] [address] Dec, [facility] [place] [facility] [address] [id number] [place] [address] Dec, [facility] [place] [facility] [address] [id number] [place] [address] Dec, [facility] [place] [facility] [address] [id number] [place] [address] Dec, [facility] [place] [facility] [address] [id number] [place] [address] Dec, [facility] [place] [facility] [address] [id number] [place] [address] Dec, [facility] [place] [facility] [address] [id number] [place] [address] Dec, [facility] [place] [facility] [address] [id number] [place] [address] Dec, [facility] [place] [facility] [address] [id number] [place] [address] Nov, [facility] [place] [facility] [address] [id number] [place] [address] 1871 Nov, [facility] [place] [facility] [address] [id number] [place] [address] Nov, [facility] [place] [facility] [address] [id number] [place] [address] Nov, [facility] [place] [facility] [address] [id number] [place] [address]39 Nov, [facility] [place] [facility] [address] [id number] [place] [address] Nov, [facility] [place] [facility] [address] [id number] [place] [address] 69[address] Nov, [facility] [place] [facility] [address] [id number] [place] [address] 74[address] Nov, [facility] [place] [facility] [address] [id number] [place] [address] Nov, [facility] [place] [facility] [address] [id number] [place] [address] 68[address] Nov, [facility] [place] [facility] [address] [id number] [place] [address]- [address]120 Nov, [facility] [place] [facility] [address] [id number] [place] [address]690 Nov, [facility] [place] [facility] [address] [id number] [place] [address] October, [facility] [place] [facility] [address] [id number] [place] [address] October, [facility] [place] [facility] [address] [id number] [place] [address] October, [facility] [place] [facility] [address] [id number] [place] [address] 27[address] October, [facility] [place] [facility] [address] [id number] [address] October, [facility] [place] [facility] [address] [id number] [place] [address] Sep, [facility] [place] [facility] [address] [id number] [place] [address]- [address] Sep, [facility] [place] [facility] [address] [id number] [place] [address]- [address] Sep, [facility] [place] [facility] [address] [id number] [place] [address]- 84[address] Sep, [facility] [place] [facility] [address] [id number] [place] [address]- [address] Sep, [facility] [place] [facility] [address] [id number] [place] [address]- 101[address] Sep, [facility] [place] [facility] [address] [id number] [place] [address]- 64[address] Sep, [facility] [place] [facility] [address] [id number] [place] [address]- 75[address] Sep, [facility] [place] [facility] [address] [id number] [place] [address]- 9848 Sep, [facility] [place] [facility] [address] [id number] [place] [address]- 484[address] Sep, [facility] [place] [facility] [address] [id number] [place] [address]- 1606 Sep, [facility] [place] [facility] [address] [id number] [place] [address]- 59[address] Sep, [facility] [place] [facility] [address] [id number] [place] [address]- 3832 Sep, [facility] [place] [facility] [address] [id number] [place] [address]- 4474 Sep, [facility] [place] [facility] [address] [id number] [place] [address]- 3811 Sep, [facility] [place] [facility] [address] [id number] [place] [address]- 6[address] Sep, [facility] [place] [facility] [address] [id number] [place] [address]- 2038 Sep, [facility] [place] [facility] [address] [id number] [place] [address]- 2668 Sep, [facility] [place] [facility] [address] [id number] [place] [address]- 6137 Sep, [facility] [place] [facility] [address] [id number] [place] [address]- [address]26 Aug, [facility] [place] [facility] [address] [id number] [place] [address]- 5194 Aug, [facility] [place] [facility] [address] [id number] [place] [address]- 3678 Aug, [facility] [place] [facility] [address] [id number] [place] [address]- 75[address] Aug, [facility] [place] [facility] [address] [id number] [place] [address]- 117[address] Jun, [facility] [place] [facility] [address] [id number] [place] [address]- 3532 Jun, [facility] [address] [id number] [place] [address]- 7845 Mar, [facility] [place] [facility] [address] [id number] [place] [address]- 2844 Mar, [facility] [place] [facility] [address] [id number] [place] [address]- 5521 Nov, [facility] [place] [facility] [address] [id number] [place] [address]- 7249 Sep, [facility] [place] [facility] [address] [id number] [place] [address]- 4085 Jun, [facility] [place] [facility] [address] [id number] [place] [address]- 1072 Jun, [facility] [place] [facility] [address] [id number] [place] [address]- 9659 Apr, [facility] [place] [facility] [address] [id number] [place] [address]- 9628 Apr, [facility] [place] [facility] [address] [id number] [place] [address]- 8575 Apr, [facility] [place] [facility] [address] [id number] [place] [address] Mar, [facility] [address] [facility] [id number] [place] [address] Feb, IMMUNIZATIONS No Known Immunizations SOCIAL HISTORY Never Assessed REASON FOR VISIT New Provider Visit/ pt c/o a lot of pain in shoulder, back and legs - FABRICIO Miranda, needs inhaler refilled and discuss nicotine patch- FABRICIO Miranda PLAN OF CARE Activity Details Follow Up 3 months or as indicated by lab Reason: Pending Test Xray : Shoulder, Left 2 view (IN HOUSE) Future/Pending Procedure JOINT INJECTION-INTERMEDIATE JOINT VITAL SIGNS Height 62 in 2018-04-19 Weight 208.5 lbs 2018-04-19 Temperature 97.7 degrees Fahrenheit 2018-04-19 Heart Rate 84 bpm 2018-04-19 Respiratory Rate 18 2018-04-19 BMI 38.13 kg/m2 2018-04-19 Blood pressure systolic 116 mmHg 2018-04-19 Blood pressure diastolic 70 mmHg 2018-04-19 MEDICATIONS Medication Instructions Dosage Frequency Start Date End Date Duration Status Glucometer 1 glucometer check blood sugars Dec, Active Haloperidol 10 MG Orally Once a day 1 tablet 24h Active Test strips test strips Check blood sugar Dec, Active Depakote ER 10 mg Orally at bedtime 1 tablet Active True Metrix Blood Glucose Test - USE 1 STRIP TO CHECK GLUCOSE ONCE DAILY Active Invega 9 MG Orally Once a day 1 tablet in the morning 24h Active Victoza 18 MG/3ML Subcutaneous Once a day 0.6 mg daily x 7 days, then 1.2 mg daily 24h Feb, Active Nicotine Step 1 21 MG/24HR Transdermal Once a day 1 patch to skin 24h Apr, May, 30 day(s) Active Pen [place] 32G X 4 MM as directed Dec, Active Atorvastatin Calcium 40 mg Orally Once a day 1 tablet 24h 30 Active MetFORMIN HCl ER 500 mg Orally twice a day 1 tablet 12h Active Ondansetron HCl 8 MG Orally Twice a day 1 tablet 12h Mar, 7 days Active Proventil HFA 108 (90 Base) MCG/ACT Inhalation every 4-6 hours as needed 2 puffs as needed Sep, 30 days Active Lancets Lancets check blood sugar Dec, Active Haloperidol 5 mg Orally Once a day 1 tablet 24h Active Ranitidine HCl 150 MG Orally twice a day 1 tablet 12h 25 Dec, 2017 30 day(s) Active Depakote ER 250 MG Active Ibuprofen 600 MG Orally Three times a day 1 tablet with food or milk as needed 8h 30 days Active RESULTS No Results PROCEDURES Procedure Date Ordered Result Body Site X-RAY EXAM OF SHOULDER Apr 19, 2018 DRAIN/INJECT, JOINT/BURSA Apr 19, 2018 INSTRUCTIONS MEDICATIONS ADMINISTERED No Known Medications MEDICAL [...] History [facility] 03/2016 Hospitalization History [place] x 30 days
--- OUTSIDE RECORDS SUMMARY | 2018-08-13 18:17 | XMS REPORT ---
Author Author CHAS OLIVIER [facility] Address [address] [place] [address] Care Team Providers Care Administrative Nursing Supervisor Name Role Phone CHAS OLIVIER Unavailable PROBLEMS Type Condition ICD9-CM Code [id number] Code Onset Dates Condition Status SNOMED Code Problem Vaginal burning N94.9 Active 422104960 Problem Hand eczema L30.9 Active 989245825 Problem Bulging of cervical intervertebral disc M50.20 Active 832647358 Problem Other chronic pain G89.29 Active 98810656 Problem Type 2 diabetes mellitus with hyperglycemia E11.65 Active 51065492 Problem Gastroesophageal reflux disease, esophagitis presence not specified K21.9 Active 035553013 Problem Type 2 diabetes mellitus without complication, without long-term current use of insulin E11.9 Active 725260616 Problem Type 2 diabetes mellitus without complications E11.9 Active 131018071 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 807287676 Problem Bulge of cervical disc without myelopathy M50.20 Active 550451471 Problem Lumbar facet arthropathy M46.96 Active 559824805 Problem Cervical dysplasia N87.9 Active 46337529 Problem Hypothyroidism E03.9 Active 84789580 Problem Mild intermittent asthma, uncomplicated J45.20 Active 568981320 Problem Generalized anxiety disorder F41.1 Active 90959661 Problem Hypertriglyceridemia E78.1 Active 170860396 Problem Schizoaffective disorder, bipolar type F25.0 Active 20238564 Problem Prediabetes R73.09 Active 1830907 Problem Other chronic pain G89.29 Active 99587330 ALLERGIES No Information ENCOUNTERS Encounter Location Date Diagnosis [facility] [address] [facility] [id number] [address] Apr, Type 2 diabetes mellitus with hyperglycemia E11.65 [facility] [address] [facility] [id number], [place] [address] Apr, Neck pain M54.2 ; Bulging of cervical intervertebral disc M50.20 ; Pain in left shoulder M25.512 ; Other chronic pain G89.29 ; 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 smoking cessation counseling Z71.6 and Type 2 diabetes mellitus with hyperglycemia E11.65 [facility] [address] [place] [id number] [place] [address] 88989- 7496 Mar, [facility] [address] [address] Mar, Diarrhea, unspecified type R19.7 and Type 2 diabetes mellitus without complication, without long-term current use of insulin E11.9 [facility] [address] [address] Mar, Sore throat J02.9 and Nausea R11.0 [place] [address] [address]- [address] Mar, [facility] [address] [address]31- [address]367 Feb, [place] [address] [address]- [address] Feb, Type 2 diabetes mellitus with hyperglycemia E11.65 and 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 [place] [address] [place] [id number] [place] [address] 21637- 1277 Feb, Type 2 diabetes mellitus without complication, without long- term current use of insulin E11.9 ; Hypertriglyceridemia E78.1 and Gastroesophageal reflux disease, esophagitis presence not specified K21.9 [facility] [address] [place] [id number] [place] [address] 81309- 0369 Feb, [place] [address] [address]40- 6932 Jan, [facility] [address] [place] [id number] [place] [address] 22962- 5184 Jan, Type 2 diabetes mellitus without complication, without long- term current use of insulin E11.9 [place] [address] [address] Dec, [facility] [address] [id number] [place] [address] 21222- 5699 Dec, [facility] [address] [place] [address] 76221- 0030 Dec, Type 2 diabetes mellitus without complications E11.9 ; 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 and BMI 40.0-44.9, adult Z68.41 [place] [address] [place] [address] 58131- 1206 Dec, Type 2 diabetes mellitus without complication, without long- term current use of insulin E11.9 [place] [address] [place] [id number] [place] [address] 70618- 3117 Dec, [place] [address] [id number] [place] [address] 65357- 5903 Dec, Type 2 diabetes mellitus without complication, without long- term current use of insulin E11.9 [place] [address] [address] 25[address] Dec, Type 2 diabetes mellitus without complication, without long- term current use of insulin E11.9 ; Gastroesophageal reflux disease, esophagitis presence not specified K21.9 and BMI 40.0-44.9, adult Z68.41 [facility] [address] [address] Dec, [facility] [id number] [place] [id number] October, Dental examination Z01.20 [place] [address] [id number] [place] [address] 50178- 0387 Sep, [place] [address] [id number] [place] [address] 43771- 6532 Sep, Hypertriglyceridemia E78.1 [place] [address] [place] [address] 32171- 5853 Sep, Hypothyroidism E03.9 ; Prediabetes R73.09 ; Mild intermittent asthma, uncomplicated J45.20 ; Bulge of cervical disc without myelopathy M50.20 ; Other chronic pain G89.29 ; Hand eczema L30.9 ; Right anterior knee pain M25.561 ; Hypertriglyceridemia E78.1 and BMI 40.0-44.9, adult Z68.41 [place] [address] 14124- 8954 Sep, [place] [address] 07844- 7743 Sep, [place] [address] 72394- 3638 Jul, [place] [address] 03936- 7493 May, Acute non-recurrent maxillary sinusitis J01.00 [facility] [address] 6[address]7970 Mar, Other viral agents as the cause of diseases classified elsewhere B97.89 and Acute upper respiratory infection, unspecified J06.9 [place] [address] 92859- 8906 Mar, [place] [address] 74080- 8256 Mar, Neck pain M54.2 [place] [address] 20154- 5817 Feb, Bulge of cervical disc without myelopathy M50.20 [place] [address] 14637- 5065 Feb, Neck pain M54.2 [place] [address] 56935- 4667 Feb, [place] [address] 45278- 6077 Feb, Bulge of cervical disc without myelopathy M50.20 ; Hypertriglyceridemia E78.1 ; Hand eczema L30.9 and Hypothyroidism E03.9 [facility] [address] 43308- 5172 Jan, [facility] [address] [id number] October, 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 dental examination Z01.20 [place] [address] 91488- 9132 Sep, Generalized abdominal pain R10.84 [place] [address] 08892- 3771 Sep, Schizoaffective disorder, bipolar type F25.0 and Generalized anxiety disorder F41.1 [facility] [address] [place] [address] 07895 -4817 Sep, [facility] [address] 11354 -4970 Sep, Vaginal burning N94.9 and Vaginal mitzi B37.3 [facility] [address] [place] [address] 14719 -4344 Sep, Gastroenteritis K52.9 [facility] [address] [place] [address] 28039 -8725 Sep, Thrush B37.0 [facility] [address] [place] [address] 13819 -4218 Sep, Pharyngitis due to other organism J02.8 [facility] [address] 22168- 8455 Sep, [facility] [address] [address]12 Aug, Cervicalgia M54.2 [place] [address] 35184- 3824 09 Mar, 2017 Hypothyroidism E03.9 ; Dry skin L85.3 ; Plantar fasciitis, bilateral M72.2 and Other chronic pain G89.29 [facility] [address] 7[address] Aug, Abrasion T14.8 [facility] [address] [id number] Aug, Dental examination Z01.20 [facility] [address] [address] Aug, Excessive cerumen in right ear canal H61.21 ; Impacted cerumen of both ears 380.4 and Bronchitis J40 [facility] [address] [address] Jul, Bilateral impacted cerumen H61.23 and Acute non-recurrent frontal sinusitis J01.[address] 16455- 5723 May, Schizoaffective disorder, bipolar type F25.0 and Generalized anxiety disorder F41.[address] 29942- 2533 May, [address] 36727- 8365 May, Cervicalgia M54.2 and Hypertriglyceridemia E78.[address] [address]68- 0624 May, [address] 14658- 2957 May, STD exposure Z20.2 and Well woman exam Z01.[address] 97233- 0128 May, [address] 94[address]- 2615 Mar, [place] [address] Dec, Pain in left knee M25.562 [facility] [address], [place] [address]- 3525 Dec, [facility] [address], [place] [address]- 3863 Nov, [facility] [address] [place] [id number] [place] [address] 42514- 2476 October, [facility] [address] [place] [address] 52087- 2179 Aug, [facility] [address] [id number] [place] [address] 98549- 2577 Jul, [facility] [address] [id number] [address]- 1319 Jul, [facility] [address] [place] [address] 94093- 2753 Jul, Plantar fasciitis M72.2 and 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 [facility] [address] [address]- 9823 Jul, [facility] [address], [place] [address]- 9852 Jun, Plantar fasciitis M72.2 and Physical exam Z00.00 [facility] [address], [place] [address]- 7700 Jun, [facility] [address], [place] [address]- 3666 Jun, [facility] [address], [place] [address]- 6123 Jun, [facility] [address], [place] [address]- 1350 May, [facility] [address] [place] [address] 26754- 3107 17 May, 2015 Hypertriglyceridemia E78.1 [facility] [address] [id number] [place] [address] 969670- 7448 May, Hypothyroidism E03.9 ; Prediabetes R73.09 and Hypertriglyceridemia E78.1 [facility] [address] [id number] [place] [address] 06020- 8263 May, [facility] [address] 81274- 5063 May, [facility] [address] [id number] [place] [address] 80819- 1643 May, Hypothyroidism E03.9 ; Prediabetes R73.09 and Hypertriglyceridemia E78.1 [facility] [address] [id number] [place] [address] 07528- 3237 Apr, Schizoaffective disorder, bipolar type F25.0 [facility] [address] [id number] [place] [address] 35935- 8548 Mar, [facility] [id number] [place] [address] 28998- 9495 Mar, [facility] [address] [id number] [place] [address] 85310- 1142 Mar, [facility] [address] [id number] [place] [address] 35567- 2010 30 Feb, 2015 [facility] [address] [id number] [place] [address] 17962- 5424 24 Feb, 2015 [facility] [address] [id number] [place] [address] 88586- 8662 16 Feb, 2015 [facility] [address] [id number] [place] [address] 38583- 0486 15 Feb, 2015 Screen for STD (sexually transmitted disease) V74.5 ; Counseling on other sexually transmitted diseases V65.45 ; Back pain 724.5 ; Contact with or exposure to venereal diseases V01.6 and Pelvic pain in female 625.9 [facility] [address] [place] [address] 71704- 4619 15 Feb, 2015 Schizoaffective disorder, unspecified 295.70 and Anxiety state, unspecified 300.00 [facility] [address] [place] [id number] [place] [address] 17651- 6778 14 Feb, 2015 [facility] [address] [id number] [place] [address] 74072- 3499 10 Feb, 2015 [facility] [address] [id number] [place] [address] 77994- 2548 03 Feb, 2015 Impacted cerumen of both ears 380.4 and Mild intermittent asthma 493.90 [facility] [address] [place] [id number] [place] [address] 16662- 7547 Feb, [facility] [address] [id number] [place] [address] 35617- 8438 Jan, [facility] [address] [place] [id number] [place] [address] 72344- 9530 Jan, [facility] [address] [id number] [place] [address] 30279- 7375 Jan, [facility] [id number] [place] [address] 57618- 0669 Jan, [facility] [address] [place] [address] 62230- 2217 Jan, [facility] [address] [id number] [place] [address] 77401- 6082 Jan, [facility] [address] [place] [id number] [place] [address] 87121- 4986 Jan, [facility] [id number] [place] [address] 97030- 0854 Jan, [facility] [address] [place] [address] 49455- 8350 Jan, [facility] [address], [place] [address]- 4366 Jan, [facility] [address] [place] [address] 69033- 0505 Jan, [facility] [address], [place] [address]- 9984 Dec, Schizoaffective disorder, unspecified 295.70 [facility] [address] [id number] [place] [address] 16934- 8861 Dec, [facility] [address] [place] [address] 89644- 3970 Dec, [facility] [address] [id number] [place] [address] 19630- 5930 Dec, [facility] [id number] [place] [address] 90708- 6425 Dec, [facility] [address] [id number] [place] [address] 21773- 7048 Dec, [facility] [address] [place] [address] [id number] Dec, Dental examination V72.2 [facility] [address], [place] [address]- 9105 Dec, Schizoaffective disorder, unspecified 295.70 ; Persistent disorder of initiating 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.42 and Anxiety state, unspecified 300.00 [facility] [address], [place] [address]- 7604 Dec, [facility] [address], [place] [address]- 0179 Nov, High risk medication use V58.69 [facility] [address] [address]- 5644 Nov, [facility] [address], [place] [address]- 6208 Nov, [facility] [address], [place] [address]- 3889 Nov, High risk medication use V58.69 [facility] [address] [place] [id number] [place] [address] 61010- 0270 Nov, [facility] [address], [place] [address]- 9264 Nov, [facility] [address] [id number] [place] [address] 73343- 3433 Nov, [facility] [address] [place] [id number] [place] [address] 61630- 2950 Nov, Hypothyroidism 244.9 ; Hypertriglyceridemia 272.1 and Prediabetes 790.29 [facility] [address] [place] [id number] [place] [address] 58244- 8289 Nov, [facility] [address] [id number] [place] [address] 90325- 5546 Nov, [facility] [address] [place] [address] 54404- 7793 Nov, Bulge of cervical disc without myelopathy 722.0 ; Lumbar facet arthropathy 721.3 ; Family history of stroke V17.1 ; Hyperthyroidism 242.90 and 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 long-term current use of medication V58.69 [facility] [address], [place] [address]- 0726 Nov, [facility] [address], [place] [address]- 7846 October, [facility] [address], [place] [address]- 2582 October, [facility] [address] [place] [address] 89577- 7273 October, [facility] [address], [place] [address]- 4518 October, [facility] [address] [address]- 8843 October, [facility] [address] [address]- 0284 October, [facility] [address] [place] [id number] [place] [address] 996695- 3443 October, Schizoaffective disorder, unspecified 295.70 and Persistent disorder of initiating 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.42 [facility] [address] [id number] [place] [address] 90493- 2487 October, Schizoaffective disorder, unspecified 295.70 [facility] [address] [place] [id number] [place] [address] 843930- 6207 October, [facility] [address] [id number] [place] [address] 73852- 8413 October, [facility] [id number] [place] [address] 57380- 6771 October, [facility] [address] [id number] [place] [address] 10708- 8887 Sep, Lumbago of lumbar region with sciatica 724.2 and Neck pain 723.1 [facility] [address], [place] [address]- 3018 Sep, [facility] [address], [place] [address]- 2565 Sep, [facility] [address], [place] [address]- 3309 Aug, [facility] [address] [place] [address]- 7238 Aug, [facility] [address] [id number] [place] [address] [id number]- 8117 Aug, [facility] [address] 7056 Aug, [facility] [address] [place] [id number] [place] [address], [place] [address]- 5777 24 Aug, 2014 [facility] [place] [facility] [address] [id number] [place] [address]- 1288 24 Aug, 2014 [facility] [place] [facility] [address] [id number] [place] [address]- 7359 20 Aug, 2014 [facility] [place] [facility] [address] [id number] [place] [address]- 3329 20 Aug, 2014 [facility] [place] [facility] [address] [id number] [place] [address]- 6285 19 Aug, 2014 [facility] [place] [facility] [address] [id number] [place] [address]- 8800 19 Aug, 2014 [facility] [place] [facility] [address] [id number] [place] [address]- 7928 18 Aug, 2014 [facility] [place] [facility] [address] [id number] [place] [address]- 5851 18 Aug, 2014 [facility] [place] [facility] [address] [id number] [place] [address]- 5712 18 Aug, 2014 [facility] [place] [facility] [address] [id number] [place] [address]- 4262 18 Aug, 2014 [facility] [place] [facility] [address] [id number] [place] [address]- 5436 16 Aug, 2014 [facility] [place] [facility] [address] [id number] [place] [address]- 4425 12 Aug, 2014 [facility] [place] [facility] [address] [id number] [place] [address]- 4888 12 Aug, 2014 [facility] [place] [facility] [address] [id number] [place] [address]- 5688 12 Aug, 2014 [facility] [place] [facility] [address] [id number] [place] [address]- 1739 12 Aug, 2014 [facility] [place] [facility] [address] [id number] [place] [address]- 9351 09 Aug, 2014 [facility] [place] [facility] [address] [id number] [place] [address]- 8653 09 Aug, 2014 [facility] [place] [facility] [address] [id number] [place] [address]- 6657 06 Aug, 2014 [facility] [place] [facility] [address] [id number] [place] [address]- 5613 05 Aug, 2014 [facility] [place] [facility] [address] [id number] [place] [address]- 4268 04 Aug, 2014 [facility] [place] [facility] [address] [id number] [place] [address] 04 Aug, 2014 [facility] [place] [facility] [address] [id number] [place] [address] Aug, 2014 [facility] [place] [facility] [address] [facility] [id number] [place] [address] Aug, 2014 [facility] [place] [facility] [address] [id number] [place] [address] Jul, 2014 [facility] [place] [facility] [address] [id number] [place] [address] 27 Jul, 2014 [facility] [place] [facility] [address] [facility] [id number] [place] [address] 26 Jul, 2014 [facility] [place] [facility] [address] [facility] [id number] [place] [address] 20 Jul, 2014 [facility] [place] [facility] [address] [id number] [place] [address] 20 Jul, 2014 [facility] [place] [facility] [address] [id number] [place] [address] 17 Jul, 2014 [facility] [place] [facility] [address] [id number] [place] [address] 17 Jul, 2014 [facility] [place] [facility] [address] [facility] [id number] [place] [address] 16 Jul, 2014 [facility] [place] [facility] [address] [facility] [id number] [place] [address] 16 Jul, 2014 [facility] [place] [facility] [address] [id number] [place] [address] Jul, [facility] [place] [facility] [address] [id number] [place] [address] Jun, [facility] [place] [facility] [address] [id number] [place] [address] Jun, [facility] [place] [facility] [address] [id number] [place] [address] Jun, [facility] [place] [facility] [address] [id number] [place] [address] Jun, [facility] [place] [facility] [address] [id number] [place] [address] Jun, [facility] [place] [facility] [address] [id number] [place] [address] Jun, [facility] [place] [facility] [address] [id number] [place] [address] Jun, [facility] [place] [facility] [address] [id number] [place] [address] May, [facility] [place] [facility] [address] [facility] [id number] [place] [address] May, [facility] [place] [facility] [address] [id number] [place] [address] May, [facility] [place] [facility] [address] [id number] [place] [address] May, [facility] [place] [facility] [address] [id number] [place] [address] May, [facility] [place] [facility] [address] [id number] [place] [address] May, [facility] [place] [facility] [address] [id number] [place] [address] May, [facility] [place] [facility] [address] [id number] [place] [address]26 May, [facility] [place] [facility] [address] [id number] [place] [address] May, [facility] [place] [facility] [address] [id number] [id number] [address] May, [facility] [place] [facility] [address] [id number] [place] [address]95 Apr, [facility] [place] [facility] [address] [id number] [place] [address] Apr, [facility] [place] [facility] [address] [id number] [place] [address] Apr, [facility] [place] [facility] [address] [id number] [place] [address]40 Apr, [facility] [place] [facility] [address] [id number] [place] [address]58 Apr, [facility] [place] [facility] [address] [id number] [place] [address] Apr, [facility] [place] [facility] [address] [id number] [place] [address]005 Apr, [facility] [place] [facility] [address] [id number] [place] [address] 2569 Apr, [facility] [place] [facility] [address] [id number] [place] [address] Apr, [facility] [place] [facility] [address] [id number] [place] [address]27 Mar, [facility] [place] [facility] [address] [id number] [place] [address]- [address]67 Mar, [facility] [place] [facility] [address] [id number] [place] [address] 6867 Mar, [facility] [place] [facility] [address] [id number] [place] [address] 1468 Mar, [facility] [place] [facility] [address] [id number] [place] [address] 9776 Mar, [facility] [place] [facility] [address] [id number] [place] [address] 6409 Mar, [facility] [place] [facility] [address] [id number] [place] [address]188 Mar, [facility] [place] [facility] [address] [id number] [place] [address]- [address]94 Mar, [facility] [place] [facility] [address] [id number] [place] [address] 4968 Mar, [facility] [place] [facility] [address] [id number] [place] [address] 6032 Mar, [facility] [place] [facility] [address] [id number] [place] [address]406 Feb, [facility] [place] [facility] [address] [id number] [place] [address] 2789 Feb, [facility] [place] [facility] [address] [id number] [place] [address] 5999 Feb, [facility] [place] [facility] [address] [id number] [place] [address] 9462 Feb, [facility] [place] [facility] [address] [id number] [place] [address] 6367 Feb, [facility] [place] [facility] [address] [id number] [place] [address] 2457 Jan, [facility] [place] [facility] [address] [id number] [place] [address] 4157 Jan, [facility] [place] [facility] [address] [id number] [place] [address] 1298 Jan, [facility] [place] [facility] [address] [id number] [place] [address]88 Jan, [facility] [place] [facility] [address] [id number] [place] [address] 1098 Jan, [facility] [place] [facility] [address] [id number] [place] [address]- [address]296 Jan, [facility] [place] [facility] [address] [id number] [place] [address] 3995 Jan, [facility] [place] [facility] [address] [id number] [place] [address]- 7781 Jan, [facility] [place] [facility] [address] [id number] [place] [address] 135[address] Jan, [facility] [place] [facility] [address] [id number] [place] [address]- 1119 Dec, [facility] [place] [facility] [address] [id number] [place] [address]- 1555 Dec, [facility] [place] [facility] [address] [id number] [place] [address] 9255 Dec, [facility] [place] [facility] [address] [id number] [place] [address] Dec, [facility] [place] [facility] [address] [id number] [place] [address]- 6310 Dec, [facility] [place] [facility] [address] [id number] [place] [address] 9220 Dec, [facility] [place] [facility] [address] [id number] [place] [address]- 8913 Dec, [facility] [place] [facility] [address] [id number] [place] [address]- 2676 Dec, [facility] [place] [facility] [address] [id number] [place] [address]- 9899 Nov, [facility] [place] [facility] [address] [id number] [place] [address] 5319 Nov, [facility] [place] [facility] [address] [id number] [place] [address] Nov, [facility] [place] [facility] [address] [id number] [place] [address]- 9931 Nov, [facility] [place] [facility] [address] [id number] [place] [address]- 5776 Nov, [facility] [place] [facility] [address] [id number] [place] [address]- 4354 Nov, [facility] [place] [facility] [address] [id number] [place] [address]- 3193 Nov, [facility] [place] [facility] [address] [id number] [place] [address]- 8950 Nov, [facility] [place] [facility] [address] [id number] [place] [address]- 6657 Nov, [facility] [place] [facility] [address] [id number] [place] [address]- 7323 Nov, [facility] [place] [facility] [address] [id number] [place] [address]- 8364 Nov, [facility] [place] [facility] [address] [id number] [place] [address]- 0719 Nov, [facility] [place] [facility] [address] [id number] [place] [address]- 8232 October, [facility] [place] [facility] [address] [id number] [place] [address] 8000 October, [facility] [place] [facility] [address] [id number], [place] [address] October, [facility] [place] [facility] [address] [id number] [place] [address]- 5842 October, [facility] [place] [facility] [address] [id number] [place] [address]- 4868 October, [facility] [place] [facility] [address] [id number] [place] [address]- 5060 Sep, [facility] [place] [facility] [address] [id number], [place] [address]395 Sep, [facility] [place] [facility] [address] [id number] [place] [address]- 1549 Sep, [facility] [place] [facility] [address] [id number] [place] [address]- 1233 Sep, [facility] [place] [facility] [address] [id number] [place] [address]- 3041 Sep, [facility] [place] [facility] [address] [id number] [place] [address]- 3595 Sep, [facility] [place] [facility] [address] [id number] [place] [address]- 2830 Sep, [facility] [place] [facility] [address] [id number] [place] [address]- 5538 Sep, [facility] [place] [facility] [address] [id number] [place] [address]- 4093 Sep, [facility] [place] [facility] [address] [id number] [place] [address]- 5613 Sep, [facility] [place] [facility] [address] [id number] [place] [address]- 0684 Sep, [facility] [place] [facility] [address] [id number] [place] [address]- 2985 Sep, [facility] [place] [facility] [address] [id number] [place] [address]- 0525 Sep, [facility] [place] [facility] [address] [id number] [place] [address]- 2565 Sep, [facility] [place] [facility] [address] [id number] [place] [address]- 0077 Sep, [facility] [place] [facility] [address] [id number] [place] [address]- 7309 Sep, [facility] [place] [facility] [address] [id number] [place] [address]- 4271 Sep, [facility] [place] [facility] [address] [id number] [place] [address]- 6091 Sep, [facility] [place] [facility] [address] [id number] [place] [address]- 7440 Sep, [facility] [place] [facility] [address] [id number] [place] [address]- 3553 Aug, [facility] [place] [facility] [address] [id number] [place] [address]- 3810 Aug, [facility] [place] [facility] [address] [id number] [place] [address]- 9163 Aug, [facility] [place] [facility] [address] [id number] [place] [address]- 0863 Aug, [facility] [place] [facility] [address] [id number] [place] [address]- 7764 Jun, [facility] [place] [facility] [address] [id number] [place] [address]- 3688 Jun, [facility] [place] [facility] [address] [id number] [place] [address]- 8579 Mar, [facility] [place] [facility] [address] [id number] [place] [address]- 6991 Mar, [facility] [place] [facility] [address] [id number] [place] [address]- 3748 Nov, [facility] [place] [facility] [address] [id number] [place] [address]- 0292 Sep, [facility] [place] [facility] [address] [id number] [place] [address]- 1204 Jun, [facility] [place] [facility] [address] [id number] [place] [address]- 7593 Jun, [facility] [place] [facility] [address] [id number] [place] [address]- 2317 Apr, [facility] [place] [facility] [address] [id number] [place] [address]- 2792 Apr, [facility] [address] [facility] [id number] [place] [address] Apr, [facility] [address] [facility] [id number], [place] [address] 3436 Mar, [facility] [address] [facility] [id number] [place] [address]- [address] Feb, IMMUNIZATIONS No Known Immunizations SOCIAL HISTORY Never Assessed REASON FOR VISIT PLAN OF CARE VITAL SIGNS MEDICATIONS Medication Instructions Dosage Frequency Start Date End Date Duration Status Victoza 18 MG/3ML Subcutaneous Once a day 1.8 mg 24h Feb, Active RESULTS No Results PROCEDURES No Known [...] History [facility] unit 03/2016 Hospitalization History [place] x 30 days
--- OUTSIDE RECORDS SUMMARY | 2018-08-13 18:18 | XMS REPORT ---
Author Author JASPAL WALTERS [facility] IN [facility] Address [address] [place] [address] Care Team Providers Care Soliciting Freight Agent Name Role Phone JASPAL WALTERS Unavailable PROBLEMS Type Condition ICD9-CM Code [id number] Code Onset Dates Condition Status SNOMED Code Problem Other chronic pain G89.29 Active 97898246 Problem Bulging of cervical intervertebral disc M50.20 Active 085548708 Problem Vaginal burning N94.9 Active 360358916 Problem Type 2 diabetes mellitus with hyperglycemia E11.65 Active 27370522 Problem Type 2 diabetes mellitus without complications E11.9 Active 350116055 Problem Gastroesophageal reflux disease, esophagitis presence not specified K21.9 Active 929011466 Problem Hand eczema L30.9 Active 270996509 Problem 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 Active 017967524 Problem Type 2 diabetes mellitus without complication, without long-term current use of insulin E11.9 Active 215935023 Problem Hypothyroidism E03.9 Active 65304752 Problem Bulge of cervical disc without myelopathy M50.20 Active 773155904 Problem Cervical dysplasia N87.9 Active 59216525 Problem Prediabetes R73.09 Active 6214059 Problem Mild intermittent asthma, uncomplicated J45.20 Active 183216310 Problem Lumbar facet arthropathy M46.96 Active 378942257 Problem Generalized anxiety disorder F41.1 Active 75046224 Problem Hypertriglyceridemia E78.1 Active 697927226 Problem Schizoaffective disorder, bipolar type F25.0 Active 49734232 ALLERGIES Substance Reaction Event Type Date Status Seroquel leg pain Drug Allergy Mar, Active ENCOUNTERS Encounter Location Date Diagnosis [facility] [address] [facility] [id number] [place] [address] Apr, [facility] [address] [facility] [id number] [place] [address] Mar, Diarrhea, unspecified type R19.7 and Type 2 diabetes mellitus without complication, without long-term current use of insulin E11.9 [facility] [id number] [place] [address] 32082 -9437 Mar, Sore throat J02.9 and Nausea R11.0 [facility] [id number] [place] [address] 47516- 2855 Mar, [facility] [id number] [place] [address] 81882- 0206 Feb, [facility] [id number] [place] [address] 19701- 7420 Feb, Type 2 diabetes mellitus with hyperglycemia E11.65 and MCC 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 [facility] [id number] [place] [address] 57052- 1781 Feb, Type 2 diabetes mellitus without complication, without long- term current use of insulin E11.9 ; Hypertriglyceridemia E78.1 and Gastroesophageal reflux disease, esophagitis presence not specified K21.9 [facility] [id number] [place] [address] 59750- 7401 Feb, [facility] [id number] [place] [address] 05397- 0685 Jan, [facility] [id number] [place] [address] 48019- 7609 Jan, Type 2 diabetes mellitus without complication, without long- term current use of insulin E11.9 [facility] [id number] [place] [address] 57312- 1743 Dec, [place] [id number] [place] [address] 52958- 3071 Dec, [facility] [id number] [place] [address] 59429- 7507 Dec, Type 2 diabetes mellitus without complications E11.9 ; 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 and BMI 40.0-44.9, adult Z68.41 [place] [id number] [place] [address] 54828- 4681 Dec, Type 2 diabetes mellitus without complication, without long- term current use of insulin E11.9 [place] [facility] [id number] [place] [address] 37846- 1512 Dec, [place] [id number] [place] [address] 11972- 2774 Dec, Type 2 diabetes mellitus without complication, without long- term current use of insulin E11.9 [place] [id number] [place] [address] 75888- 7579 Dec, Type 2 diabetes mellitus without complication, without long- term current use of insulin E11.9 ; Gastroesophageal reflux disease, esophagitis presence not specified K21.9 and BMI 40.0-44.9, adult Z68.41 [place] [id number] [place] [address] 29668- 7890 Dec, [facility] [id number] [place] [address] [id number] October, Dental examination Z01.20 [place] [address] 58990- 9836 Sep, [place] [id number] [place] [address] 08444- 6095 Sep, Hypertriglyceridemia E78.1 [place] [id number] [place] [address] 19871- 9581 Sep, Hypothyroidism E03.9 ; Prediabetes R73.09 ; Mild intermittent asthma, uncomplicated J45.20 ; Bulge of cervical disc without myelopathy M50.20 ; Other chronic pain G89.29 ; Hand eczema L30.9 ; Right anterior knee pain M25.561 ; Hypertriglyceridemia E78.1 and BMI 40.0-44.9, adult Z68.41 [place] [id number] [place] [address] 16258- 2589 Sep, [place] [id number] [place] [address] 37845- 0419 Sep, [facility] [address] 27936- 4174 Jul, [facility] [id number] [place] [address] 56757- 4559 May, Acute non-recurrent maxillary sinusitis J01.00 [facility] [address] 09099 -3137 Mar, Other viral agents as the cause of diseases classified elsewhere B97.89 and Acute upper respiratory infection, unspecified J06.9 [facility] [address] 70905- 4296 Mar, [facility] [address] 50927- 1784 Mar, Neck pain M54.2 [facility] [address] 59770- 5417 Feb, Bulge of cervical disc without myelopathy M50.20 [facility] [address] 50368- 3839 Feb, Neck pain M54.2 [facility] [address] 16124- 9958 Feb, [facility] [address] 62102- 0761 Feb, Bulge of cervical disc without myelopathy M50.20 ; Hypertriglyceridemia E78.1 ; Hand eczema L30.9 and Hypothyroidism E03.9 [facility] [address] 80009- 9991 Jan, [facility] [address] [id number] October, 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 dental examination Z01.20 [facility] [address] 86193- 9364 Sep, Generalized abdominal pain R10.84 [facility] [address] 39288- 9996 Sep, Schizoaffective disorder, bipolar type F25.0 and Generalized anxiety disorder F41.1 [facility] [place] [address] 04059 -5956 Sep, [facility] [place] [address] 88439 -8773 Sep, Vaginal burning N94.9 and Vaginal mitzi B37.3 [facility] [address] [place] [address] 35848 -9728 Sep, Gastroenteritis K52.9 [facility] [address] [place] [address] 52657 -7093 Sep, Thrush B37.0 [facility] [place] [address] 14937 -8277 Sep, Pharyngitis due to other organism J02.8 [place] [address] 48552- 8944 Sep, [facility] [place] [address] 24980 -5490 Aug, Cervicalgia M54.2 [place] [address] 05301- 7808 Aug, Hypothyroidism E03.9 ; Dry skin L85.3 ; Plantar fasciitis, bilateral M72.2 and Other chronic pain G89.29 [facility] [address] [place] [address] 13228 -2337 07 Aug, 2016 Abrasion T14.8 [facility] [address] [id number] 02 Aug, 2016 Dental examination Z01.20 [facility] [address] [place] [address] 41639 -8172 Aug, Excessive cerumen in right ear canal H61.21 ; Impacted cerumen of both ears 380.4 and Bronchitis J40 [facility] [address] 95014 -8261 Jul, Bilateral impacted cerumen H61.23 and Acute non-recurrent frontal sinusitis J01.10 [place] [address] 07964- 8746 May, Schizoaffective disorder, bipolar type F25.0 and Generalized anxiety disorder F41.[address] 46373- 4969 May, [place] [address] 43563- 7860 May, Cervicalgia M54.2 and Hypertriglyceridemia E78.1 [place] [address] 13427- 5887 May, [place] [address] 93154- 9462 May, STD exposure Z20.2 and Well woman exam Z01.419 [place] [address] 03992- 1099 May, [place] [address] 30228- 0654 Mar, [place] [address] 46732- 6697 Dec, Pain in left knee M25.562 [place] [address] 95482- 7882 Dec, [place] [address] 33553- 3772 Nov, [place] [address] 95085- 9760 October, [facility] [address] [address]- 4445 Aug, [facility] [id number] [place] [address] 79119- 4404 Jul, [facility] [id number] [address]- 3481 Jul, [facility] [id number] [place] [address] 51282- 4274 Jul, Plantar fasciitis M72.2 and 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 [facility] [id number] [place] [address] 37514- 6046 Jul, [facility] [id number] [place] [address] 80015- 8217 Jun, Plantar fasciitis M72.2 and Physical exam Z00.00 [facility] [id number] [place] [address] 39790- 9465 Jun, [facility] [id number] [place] [address] 14615- 8413 Jun, [facility] [id number] [place] [address] 78541- 3471 Jun, [facility] [address] [address]- 0187 May, [facility] [id number] [place] [address] 22488- 8523 May, Hypertriglyceridemia E78.1 [facility] [id number] [place] [address] 60832- 8640 16 May, 2015 Hypothyroidism E03.9 ; Prediabetes R73.09 and Hypertriglyceridemia E78.1 [facility] [address] [address]- 8926 May, [facility] [id number] [place] [address] 12067- 3334 May, [facility] [id number] [place] [address] 60214- 8514 May, Hypothyroidism E03.9 ; Prediabetes R73.09 and Hypertriglyceridemia E78.1 [facility] [id number] [place] [address] 21969- 5605 Apr, Schizoaffective disorder, bipolar type F25.0 [facility] [id number] [place] [address] 33161- 3394 Mar, [facility] [id number] [place] [address] 29268- 9516 Mar, [facility] [id number] [place] [address] 05990- 4862 Mar, [facility] [id number] [place] [address] 28982- 4517 30 Feb, 2015 [facility] [id number] [place] [address] 24592- 8559 24 Feb, 2015 [facility] [id number] [place] [address] 86829- 9656 16 Feb, 2015 [facility] [id number] [place] [address] 77528- 0159 Feb, Screen for STD (sexually transmitted disease) V74.5 ; Counseling on other sexually transmitted diseases V65.45 ; Back pain 724.5 ; Contact with or exposure to venereal diseases V01.6 and Pelvic pain in female 625.9 [facility] [id number] [place] [address] 45704- 1682 15 Feb, 2015 Schizoaffective disorder, unspecified 295.70 and Anxiety state, unspecified 300.00 [facility] [id number] [place] [address] 61224- 8092 14 Feb, 2015 [facility] [id number] [place] [address] 65801- 1946 10 Feb, 2015 [facility] [address] [address]- 6119 Feb, Impacted cerumen of both ears 380.4 and Mild intermittent asthma 493.90 [facility] [id number] [place] [address] 89504- 1816 Feb, [facility] [id number] [place] [address] 44488- 1393 Jan, [facility] [id number] [place] [address] 05547- 7227 Jan, [facility] [id number] [place] [address] 15689- 0863 Jan, [facility] [id number] [place] [address] 04924- 1491 Jan, [facility] [id number] [place] [address] 29549- 9545 Jan, [facility] [id number] [place] [address] 26479- 5524 Jan, [facility] [id number] [place] [address] 06633- 4164 Jan, [facility] [id number] [place] [address] 19483- 6582 Jan, [facility] [id number] [place] [address] 82522- 3434 Jan, [facility] [address] [address]- 6877 Jan, [facility] [id number] [place] [address] 53686- 1139 Jan, [facility] [id number] [place] [address] 97092- 2064 Dec, Schizoaffective disorder, unspecified 295.70 [facility] [id number] [place] [address] 17098- 8826 Dec, [facility] [address] [address]- 1741 Dec, 2014 [facility] [address] [address]- 4525 Dec, 2014 [facility] [address] 6499 Dec, 2014 [facility] [id number] [place] [address] 91233- 8082 Dec, [facility] [address] [id number] Dec, Dental examination V72.2 [facility] [address] [address]- 6762 Dec, Schizoaffective disorder, unspecified 295.70 ; Persistent disorder of initiating 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.42 and Anxiety state, unspecified 300.00 [facility] [address] [address]- 5421 Dec, [facility] [address] [address]- 2218 Nov, High risk medication use V58.69 [facility] [address] [address]- 6332 Nov, [facility] [address] [address]- 2254 Nov, [facility] [address] [address]- 4913 Nov, High risk medication use V58.69 [facility] [address] 3208 Nov, [facility] [address] 0452 Nov, [facility] [address] 2929 Nov, [facility] [id number] [place] [address] 01766- 5042 Nov, Hypothyroidism 244.9 ; Hypertriglyceridemia 272.1 and Prediabetes 790.29 [facility] [id number] [place] [address] 54407- 3916 Nov, [facility] [id number] [place] [address] 16497- 7741 Nov, [facility] [id number] [place] [address] 42324- 6697 Nov, Bulge of cervical disc without myelopathy 722.0 ; Lumbar facet arthropathy 721.3 ; Family history of stroke V17.1 ; Hyperthyroidism 242.90 and 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 long-term current use of medication V58.69 [facility] [id number] [place] [address] 52771- 6161 Nov, [facility] [id number] [place] [address] 09986- 0288 October, [facility] [id number] [place] [address] 08177- 0666 October, [facility] [id number] [place] [address] 92069- 4420 October, [facility] [id number] [place] [address] 86208- 8433 October, [facility] [id number] [place] [address] 92838- 8618 October, [facility] [id number] [place] [address] 48146- 7125 October, [facility] [id number] [place] [address] 82723- 7050 October, Schizoaffective disorder, unspecified 295.70 and Persistent disorder of initiating 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.42 [facility] [id number] [place] [address] 59345- 0114 October, Schizoaffective disorder, unspecified 295.70 [facility] [address] [address] October, [facility] [id number] [address]12 October, [facility] [id number] [place] [address] 47298- 4745 October, [facility] [id number] [place] [address] 02742- 3764 Sep, Lumbago of lumbar region with sciatica 724.2 [address] Neck pain 723.1 [facility] [id number] [place] [address] 16299- 1276 Sep, [facility] [id number] [address]- 9614 Sep, [facility] [id number] [place] [address] 39204- 4256 Aug, [facility] [id number] [address]- 0428 Aug, [facility] [id number] [address]- 5365 Aug, [facility] [address] [address]- 1182 Aug, [facility] [address] [address]- 2214 Aug, [facility] [address] [address]- 4539 Aug, [facility] [id number] 7817 Aug, [facility] [address] 1055 Aug, [facility] [id number] [place] [address]- 0116 19 Aug, 2014 [facility] [place] [facility] [address] [id number] [place] [address]- 8944 19 Aug, 2014 [facility] [place] [facility] [address] [id number] [place] [address]- 6608 18 Aug, 2014 [facility] [place] [facility] [address] [id number] [place] [address]- 2459 18 Aug, 2014 [facility] [place] [facility] [address] [id number] [place] [address]- 4210 18 Aug, 2014 [facility] [place] [facility] [address] [id number] [place] [address]- 4700 18 Aug, 2014 [facility] [place] [facility] [address] [id number] [place] [address]- 5852 16 Aug, 2014 [facility] [place] [facility] [address] [id number] [place] [address]- 1838 12 Aug, 2014 [facility] [place] [facility] [address] [id number] [place] [address]- 5156 Aug, [facility] [place] [facility] [address] [id number] [place] [address]- 1207 Aug, 2014 [facility] [place] [facility] [address] [id number] [place] [address]- 9180 Aug, [facility] [place] [facility] [address] [id number] [place] [address]- 9552 09 Aug, 2014 [facility] [place] [facility] [address] [id number] [place] [address]- 9400 09 Aug, 2014 [facility] [place] [facility] [address] [id number] [place] [address]- 9686 06 Aug, 2014 [facility] [place] [facility] [address] [id number] [place] [address]- 0785 05 Aug, 2014 [facility] [place] [facility] [address] [id number] [place] [address]- 0908 Aug, 2014 [facility] [place] [facility] [address] [id number] [place] [address]- 4619 Aug, [facility] [place] [facility] [address] [id number] [place] [address]- 8420 Aug, [facility] [place] [facility] [address] [id number] [place] [address]- 2405 Aug, [facility] [place] [facility] [address] [id number] [place] [address]- 8819 Jul, [facility] [place] [facility] [address] [id number] [place] [address]- 3442 Jul, [facility] [place] [facility] [address] [id number] [place] [address]- 5967 Jul, [facility] [place] [facility] [address] [id number] [place] [address]- 2265 Jul, [facility] [place] [facility] [address] [id number] [place] [address]- 1501 Jul, 2014 [facility] [place] [facility] [address] [id number] [place] [address]- 0671 Jul, [facility] [place] [facility] [address] [id number] [place] [address] Jul, 2014 [facility] [place] [facility] [address] [id number] [place] [address] 16 Jul, 2014 [facility] [place] [facility] [address] [id number] [place] [address] Jul, 2014 [facility] [place] [facility] [address] [id number] [place] [address] Jul, [facility] [place] [facility] [address] [id number] [place] [address] Jun, [facility] [place] [facility] [address] [id number] [place] [address] Jun, [facility] [place] [facility] [address] [id number] [place] [address] Jun, [facility] [address] [id number] [place] [address] Jun, [facility] [address] [id number] [place] [address] Jun, [facility] [address] [id number] [place] [address] Jun, [facility] [address] [id number] [place] [address] Jun, [facility] [address] [id number] [place] [address] May, [facility] [address] [id number] [place] [address] May, [facility] [address] [id number] [place] [address] May, [facility] [address] [id number] [place] [address] May, [facility] [address] [id number] [place] [address] May, [facility] [address] [id number] [place] [address] May, [facility] [place] [facility] [address] [id number] [place] [address] May, [facility] [place] [facility] [address] [id number] [place] [address] May, [facility] [place] [facility] [address] [id number] [place] [address] May, [facility] [place] [facility] [address] [id number] [place] [address] May, [facility] [place] [facility] [address] [id number] [place] [address] Apr, [facility] [place] [facility] [address] [id number] [place] [address] Apr, [facility] [place] [facility] [address] [id number] [place] [address] 1994 Apr, [facility] [place] [facility] [address] [id number] [place] [address] Apr, [facility] [place] [facility] [address] [id number] [place] [address] Apr, [facility] [place] [facility] [address] [id number] [place] [address] Apr, [facility] [place] [facility] [address] [id number] [place] [address] Apr, [facility] [place] [facility] [address] [id number] [place] [address] Apr, [facility] [place] [facility] [address] [id number] [place] [address] Apr, [facility] [place] [facility] [address] [id number] [place] [address] Mar, [facility] [place] [facility] [address] [id number] [place] [address] Mar, [facility] [place] [facility] [address] [id number] [place] [address] Mar, [facility] [place] [facility] [address] [id number] [place] [address] Mar, [facility] [place] [facility] [address] [id number] [place] [address]298 Mar, [facility] [place] [facility] [address] [id number] [place] [address] Mar, [facility] [place] [facility] [address] [id number] [place] [address] Mar, [facility] [place] [facility] [address] [id number] [place] [address] Mar, [facility] [place] [facility] [address] [id number] [place] [address] Mar, [facility] [place] [facility] [address] [id number] [place] [address] Mar, [facility] [place] [facility] [address] [id number] [place] [address] Feb, [facility] [place] [facility] [address] [id number] [place] [address]268 Feb, [facility] [place] [facility] [address] [id number] [place] [address] 39[address] Feb, [facility] [place] [facility] [address] [id number] [place] [address] Feb, [facility] [place] [facility] [address] [id number] [place] [address] Feb, [facility] [place] [facility] [address] [id number] [place] [address] Jan, [facility] [place] [facility] [address] [id number] [place] [address] 8747 Jan, [facility] [place] [facility] [address] [id number] [place] [address] 27[address] Jan, [facility] [place] [facility] [address] [id number] [place] [address] 46[address] Jan, [facility] [place] [facility] [address] [id number] [place] [address] 3660 Jan, [facility] [place] [facility] [address] [id number] [place] [address] 7628 Jan, [facility] [place] [facility] [address] [id number] [place] [address] 6970 Jan, [facility] [place] [facility] [address] [id number] [place] [address] 6843 Jan, [facility] [place] [facility] [address] [id number] [place] [address] Jan, [facility] [place] [facility] [address] [id number] [place] [address] Dec, [facility] [place] [facility] [address] [id number] [place] [address] Dec, [facility] [place] [facility] [address] [id number] [place] [address] Dec, [facility] [place] [facility] [address] [id number] [place] [address] Dec, [facility] [place] [facility] [address] [id number] [place] [address] Dec, [facility] [place] [facility] [address] [id number] [place] [address] Dec, [facility] [place] [facility] [address] [id number] [place] [address] 64[address] Dec, [facility] [place] [facility] [address] [id number] [place] [address] 8768 Dec, [facility] [place] [facility] [address] [id number] [place] [address] Nov, [facility] [place] [facility] [address] [id number] [place] [address] Nov, [facility] [place] [facility] [address] [id number] [place] [address] 2614 Nov, [facility] [place] [facility] [address] [id number] [place] [address] 3034 Nov, [facility] [place] [facility] [address] [id number] [place] [address] 8628 Nov, [facility] [place] [facility] [address] [id number] [place] [address] 2406 Nov, [facility] [place] [facility] [address] [id number] [place] [address] Nov, [facility] [place] [facility] [address] [id number] [place] [address]- 3720 Nov, [facility] [place] [facility] [address] [id number] [place] [address]- 8196 Nov, [facility] [place] [facility] [address] [id number] [place] [address] 3180 Nov, [facility] [place] [facility] [address] [id number] [place] [address]- 1651 Nov, [facility] [place] [facility] [address] [id number] [place] [address] 3635 Nov, [facility] [place] [facility] [address] [id number] [place] [address] 266[address] October, [facility] [place] [facility] [address] [id number] [place] [address] 2954 October, [facility] [place] [facility] [address] [id number] [place] [address]- 2019 October, [facility] [place] [facility] [address] [id number] [place] [address]- 9418 October, [facility] [place] [facility] [address] [id number] [place] [address] 5074 October, [facility] [place] [facility] [address] [id number] [place] [address]- [address] Sep, [facility] [place] [facility] [address] [id number] [place] [address] 7640 Sep, [facility] [place] [facility] [address] [id number] [place] [address]- 0434 Sep, [facility] [place] [facility] [address] [id number] [place] [address]- 2371 Sep, [facility] [place] [facility] [address] [id number] [place] [address]- 9183 Sep, [facility] [place] [facility] [address] [id number] [place] [address]- 5075 Sep, [facility] [place] [facility] [address] [id number] [place] [address] 3209 Sep, [facility] [place] [facility] [address] [id number] [place] [address]- 3743 Sep, [facility] [place] [facility] [address] [id number] [place] [address]- 6978 Sep, [facility] [place] [facility] [address] [id number] [place] [address]- 6010 Sep, [facility] [place] [facility] [address] [id number] [place] [address]- 5878 Sep, [facility] [place] [facility] [address] [id number] [place] [address] 0682 Sep, [facility] [place] [facility] [address] [id number] [place] [address]- 9381 Sep, [facility] [place] [facility] [address] [id number] [place] [address]- 2736 Sep, [facility] [place] [facility] [address] [id number] [place] [address]- 4062 Sep, [facility] [place] [facility] [address] [id number] [place] [address]- 3009 Sep, [facility] [place] [facility] [address] [id number] [place] [address]- 9830 Sep, [facility] [place] [facility] [address] [id number] [place] [address]- 3576 Sep, [facility] [place] [facility] [address] [id number] [place] [address]- 0530 Sep, [facility] [place] [facility] [address] [id number] [place] [address]- 8336 Aug, [facility] [place] [facility] [address] [id number] [place] [address]- 7034 Aug, [facility] [place] [facility] [address] [facility] [id number] [place] [address]- 6[address] Aug, [facility] [address] [facility] [id number] [place] [address] Aug, [facility] [address] [facility] [id number] [place] [address]- 8922 Jun, [facility] [address] [facility] [id number] [place] [address]- 4769 Jun, [facility] [address] [facility] [id number] [place] [address]- 6671 Mar, [facility] [address] [facility] [id number] [place] [address], [place] [address] 8752 Mar, [facility] [address] [id number] [place] [address] [address] Nov, [facility] [id number] [place] [address] Sep, [facility] [address] [id number] [place] [address]- 6254 Jun, [facility] [id number] [place] [address] Jun, [facility] [id number] [place] [address] 2731 Apr, [facility] [id number] [place] [address] 1414 Apr, [facility] [address] [id number] [address] 6604 Apr, [facility] [id number] [place] [address] [address] Mar, [facility] [address] [facility] [id number] [place] [address] 14 Feb, 2010 IMMUNIZATIONS No Known Immunizations SOCIAL HISTORY Never Assessed REASON FOR VISIT diarrhea off et on for a month. sore throat et cough for 2 days. [email or web address] PLAN OF CARE Activity Details Follow Up w/ Rani Dunn, 03/29 Reason:diarrhea VITAL SIGNS Height 62 in 2018-03-27 Weight 213.2 lbs 2018-03-27 Temperature 98.4 degrees Fahrenheit 2018-03-27 Heart Rate 90 bpm 2018-03-27 Respiratory Rate 20 2018-03-27 BMI 38.99 kg/m2 2018-03-27 Blood pressure systolic 126 mmHg 2018-03-27 Blood pressure diastolic 76 mmHg 2018-03-27 MEDICATIONS Medication Instructions Dosage Frequency Start Date End Date Duration Status Depakote ER 10 mg Orally at bedtime 1 tablet Active Levemir FlexTouch 100 UNIT/ML Subcutaneous Once a day 40 units at bedtime 24h Active Ibuprofen 600 MG Orally Three times a day 1 tablet with food or milk as needed 8h Mar, 90 days Active Proventil HFA 108 (90 Base) MCG/ACT Inhalation every 4-6 hours as needed 2 puffs as needed Sep, Active Lancets Lancets check blood sugar Dec, Active MetFORMIN HCl ER 500 mg Orally twice a day for 1 week then increase to 2 tablet twice daily 1 tablet 30 Active Ranitidine HCl 150 MG Orally twice a day 1 tablet 12h Dec, 30 day(s) Active Test strips test strips Check blood sugar Dec, Active Pen Garrison 32G X 4 MM as directed Dec, Active Ondansetron HCl 8 MG Orally Twice a day 1 tablet 12h Mar, 7 days Active Invega 9 MG Orally Once a day 1 tablet in the morning 24h Active Victoza 18 MG/3ML Subcutaneous Once a day 0.6 mg daily x 7 days, then 1.2 mg daily 24h 12 Feb, 2018 Active Haloperidol 5 mg Orally Once a day 1 tablet 24h Active Glucometer 1 glucometer check blood sugars Dec, Active Atorvastatin Calcium 40 mg Orally Once a day 1 tablet 24h 30 Active Depakote ER 250 MG Active True Metrix Blood Glucose Test - USE 1 STRIP TO CHECK GLUCOSE ONCE DAILY Active RESULTS Name Result Date Reference Range STREP A (IN HOUSE) 2018-03-27 STREP A negative Control + Lot # [id number] Exp date 2018 10 31 PROCEDURES Procedure Date Ordered Result Body Site STREP A ASSAY W/OPTIC Mar 27, 2018 INSTRUCTIONS MEDICATIONS ADMINISTERED No Known Medications [...]
--- OUTSIDE RECORDS SUMMARY | 2018-08-13 18:19 | XMS REPORT ---
Author Author CHRISTO ADELA [facility] Address [address] [place] [address] Care Team Providers Care Client Service Supervisor Name Role Phone ADELA VILLAFUERTE Unavailable PROBLEMS Type Condition ICD9-CM Code [id number]-WN Code Onset Dates Condition Status SNOMED Code Problem Other chronic pain G89.29 Active 88622783 Problem Bulging of cervical intervertebral disc M50.20 Active 143046344 Problem Vaginal burning N94.9 Active 451450417 Problem Type 2 diabetes mellitus with hyperglycemia E11.65 Active 62617591 Problem Type 2 diabetes mellitus without complications E11.9 Active 737974795 Problem Gastroesophageal reflux disease, esophagitis presence not specified K21.9 Active 030515132 Problem Hand eczema L30.9 Active 387752073 Problem 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 Active 705537327 Problem Type 2 diabetes mellitus without complication, without long-term current use of insulin E11.9 Active 059283333 Problem Hypothyroidism E03.9 Active 19471929 Problem Bulge of cervical disc without myelopathy M50.20 Active 271613448 Problem Cervical dysplasia N87.9 Active 07849678 Problem Prediabetes R73.09 Active 4372085 Problem Mild intermittent asthma, uncomplicated J45.20 Active 536197441 Problem Lumbar facet arthropathy M46.96 Active 731161258 Problem Generalized anxiety disorder F41.1 Active 96920541 Problem Hypertriglyceridemia E78.1 Active 245921924 Problem Schizoaffective disorder, bipolar type F25.0 Active 70082091 ALLERGIES No Information ENCOUNTERS Encounter Location Date Diagnosis [facility] [address] [facility] [id number], [place] [address] Feb, [facility] [address] [facility] [id number], [place] [address] 10 Feb, 2018 Type 2 diabetes mellitus with hyperglycemia E11.65 and 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 [place] [address], [place] [address] Feb, Type 2 diabetes mellitus without complication, without long- term current use of insulin E11.9 ; Hypertriglyceridemia E78.1 and Gastroesophageal reflux disease, esophagitis presence not specified K21.9 [place] [address], [place] [address] Feb, [place] [address] [place] [id number] [place] [address] 06775- 3851 Jan, [place] [address] [place] [id number] [place] [address] 90232- 3090 Jan, Type 2 diabetes mellitus without complication, without long- term current use of insulin E11.9 [place] [address], [place] [address] 9635 Dec, [place] [address] [place] [id number] [place] [address] 92795- 6362 Dec, [place] [address] [place] [id number] [place] [address] 21592- 2522 Dec, Type 2 diabetes mellitus without complications E11.9 ; 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 and BMI 40.0-44.9, adult Z68.41 [place] [address] [address] Dec, Type 2 diabetes mellitus without complication, without long- term current use of insulin E11.9 [place] [address], [place] [address]- 1135 Dec, [place] [address], [place] [address] 0378 Dec, Type 2 diabetes mellitus without complication, without long- term current use of insulin E11.9 [place] [address] [address] 7713 Dec, Type 2 diabetes mellitus without complication, without long- term current use of insulin E11.9 ; Gastroesophageal reflux disease, esophagitis presence not specified K21.9 and BMI 40.0-44.9, adult Z68.41 [facility] [id number] [place] [address] 66385- 5058 Dec, [facility] [id number] [place] [address] [id number] October, Dental examination Z01.20 [place] [address] [address]98- 7238 Sep, [facility] [address] 25896- 3049 Sep, Hypertriglyceridemia E78.1 [place] [address] 87324- 2076 Sep, Hypothyroidism E03.9 ; Prediabetes R73.09 ; Mild intermittent asthma, uncomplicated J45.20 ; Bulge of cervical disc without myelopathy M50.20 ; Other chronic pain G89.29 ; Hand eczema L30.9 ; Right anterior knee pain M25.561 ; Hypertriglyceridemia E78.1 and BMI 40.0-44.9, adult Z68.41 [place] [address] [place] [id number] [place] [address] 02932- 6271 Sep, [facility] [address] [place] [id number] [place] [address] 72318- 3887 Sep, [place] [address] [place] [id number] [place] [address] 53560- 0313 Jul, [place] [address] 38066- 5546 May, Acute non-recurrent maxillary sinusitis J01.00 [facility] [address] [id number] [place] [address] 28151 -2565 Mar, Other viral agents as the cause of diseases classified elsewhere B97.89 and Acute upper respiratory infection, unspecified J06.9 [place] [address] 67531- 0714 Mar, [facility] [address] [place] [id number] [place] [address] 25899- 6329 Mar, Neck pain M54.2 [place] [address] 26607- 5901 27 Feb, 2017 Bulge of cervical disc without myelopathy M50.20 [place] [address] 76911- 0888 Feb, Neck pain M54.2 [place] [address] 19818- 7237 11 Feb, 2017 [place] [address] 69160- 3948 07 Feb, 2017 Bulge of cervical disc without myelopathy M50.20 ; Hypertriglyceridemia E78.1 ; Hand eczema L30.9 and Hypothyroidism E03.9 [place] [address] 00454- 3120 Jan, [facility] [address] [id number] October, 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 dental examination Z01.20 [place] [address] 71041- 1693 Sep, Generalized abdominal pain R10.84 [place] [address] 09696- 2716 Sep, Schizoaffective disorder, bipolar type F25.0 and Generalized anxiety disorder F41.1 [facility] [address] 60456 -9254 Sep, [facility] [address] 94570 -2556 Sep, Vaginal burning N94.9 and Vaginal mitzi B37.3 [facility] [address] 74580 -3675 Sep, Gastroenteritis K52.9 [facility] [address] [place] [id number] [place] [address] 20091 -5787 18 Sep, 2016 Thrush B37.0 [facility] [address] [address] -[address]35 15 Sep, 2016 Pharyngitis due to other organism J02.[address] [address]20- 8233 Sep, [facility] [address] 28[address] -1120 Aug, Cervicalgia M54.[address] 01189- 9472 09 Aug, 2016 Hypothyroidism E03.9 ; Dry skin L85.3 ; Plantar fasciitis, bilateral M72.2 and Other chronic pain G89.29 [facility] [address] [address] Aug, Abrasion T14.8 [facility] [address] [id number] Aug, Dental examination Z01.20 [facility] [place] [id number] [place] [address] 92033 -8496 Aug, Excessive cerumen in right ear canal H61.21 ; Impacted cerumen of both ears 380.4 and Bronchitis J40 [facility] [place] [id number] [place] [address] 39115 -4334 Jul, Bilateral impacted cerumen H61.23 and Acute non-recurrent frontal sinusitis J01.[address] [address]15- 5473 May, Schizoaffective disorder, bipolar type F25.0 and Generalized anxiety disorder F41.[address] 92298- 6586 May, [place] [id number] [place] [address]- 3101 May, Cervicalgia M54.2 and Hypertriglyceridemia E78.1 [facility] [address] [place] [id number] [place] [address] 94842- 1826 May, [facility] [address] [place] [id number] [place] [address] 47396- 1344 May, STD exposure Z20.2 and Well woman exam Z01.419 [facility] [address] [place] [id number] [place] [address] 81187- 6166 May, [facility] [address] [place] [id number] [place] [address] 14826- 8125 Mar, [facility] [address] [place] [id number] [place] [address] 66985- 8074 Dec, Pain in left knee M25.562 [facility] [address] [place] [id number] [place] [address] 90553- 9540 Dec, [facility] [address] [place] [id number] [place] [address] 81616- 6789 Nov, [facility] [address] [place] [id number] [place] [address] 55993- 2885 October, [facility] [address] [place] [id number] [place] [address] 13881- 8846 Aug, [facility] [address] [id number] [place] [address] 51199- 9855 Jul, [facility] [address] [place] [id number] [place] [address] 41017- 2547 Jul, [facility] [address] [place] [id number] [place] [address] 51636- 0718 Jul, Plantar fasciitis M72.2 and 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 [facility] [address] [place] [id number] [place] [address] 65496- 4129 Jul, [facility] [address] [place] [id number] [place] [address] 03839- 8746 Jun, Plantar fasciitis M72.2 and Physical exam Z00.00 [facility] [address] [place] [id number] [place] [address] 44708- 7480 Jun, [facility] [address] [place] [id number] [place] [address] 89052- 0218 Jun, [facility] [address] [place] [id number] [place] [address] 55643- 2283 Jun, [facility] [address] [place] [id number] [place] [address] 41211- 6975 May, [facility] [address] [place] [id number] [place] [address] 15267- 7345 May, Hypertriglyceridemia E78.1 [facility] [address] [place] [id number] [place] [address] 12853- 7856 May, Hypothyroidism E03.9 ; Prediabetes R73.09 and Hypertriglyceridemia E78.1 [facility] [address] [place] [id number] [place] [address] 18731- 7907 May, [facility] [address] [place] [id number] [place] [address] 92556- 7242 May, [facility] [address] [place] [id number] [place] [address] 86680- 3865 May, Hypothyroidism E03.9 ; Prediabetes R73.09 and Hypertriglyceridemia E78.1 [facility] [address] [place] [address] 45056- 0570 Apr, Schizoaffective disorder, bipolar type F25.0 [facility] [address] [place] [id number] [place] [address] 95809- 5652 Mar, [facility] [address] [place] [id number] [place] [address] 05371- 5676 Mar, [facility] [address] [place] [id number] [place] [address] 65285- 1729 Mar, [facility] [address] [place] [address] 08799- 2549 30 Feb, 2015 [facility] [address] [place] [id number] [place] [address] 29706- 1908 24 Feb, 2015 [facility] [address] [place] [id number] [place] [address] 33956- 6815 16 Feb, 2015 [facility] [address] [place] [id number] [place] [address] 25113- 4820 15 Feb, 2015 Screen for STD (sexually transmitted disease) V74.5 ; Counseling on other sexually transmitted diseases V65.45 ; Back pain 724.5 ; Contact with or exposure to venereal diseases V01.6 and Pelvic pain in female 625.9 [facility] [address] [place] [id number] [place] [address] 07267- 5193 15 Feb, 2015 Schizoaffective disorder, unspecified 295.70 and Anxiety state, unspecified 300.00 [facility] [address] [place] [id number] [place] [address] 93886- 3625 14 Feb, 2015 [facility] [address] [place] [id number] [place] [address] 44847- 4344 10 Feb, 2015 [facility] [address] [place] [id number] [place] [address] 19048- 7986 03 Feb, 2015 Impacted cerumen of both ears 380.4 and Mild intermittent asthma 493.90 [facility] [address] [place] [id number] [place] [address] 26504- 9104 Feb, [facility] [address] [place] [id number] [place] [address] 84804- 6594 Jan, [facility] [address] [place] [id number] [place] [address] 03937- 6132 Jan, [facility] [address] [place] [id number] [place] [address] 77674- 3625 Jan, [facility] [address] [place] [address]- 8935 Jan, [facility] [address] [facility] [id number], [place] [address]- 9816 Jan, [facility] [place] [facility] [address] [facility] [id number], [place] [address]- 1027 Jan, [facility] [address] [facility] [id number], [place] [address]- 5975 Jan, [facility] [place] [facility] [address] [facility] [id number], [place] [address]- 3940 Jan, [facility] [address] [facility] [id number] [place] [address] 54083- 6089 Jan, [facility] [place] [facility] [address] [place] [id number] [address]- 3017 Jan, [facility] [address] [place] [address] 33111- 3895 Jan, [facility] [place] [facility] [address] [facility] [id number], [place] [address]- 6442 Dec, Schizoaffective disorder, unspecified 295.70 [facility] [address], [place] [address]- 3720 Dec, [facility] [place] [facility] [address], [place] [address]- 3867 Dec, [facility] [place] [facility] [address], [place] [address]- 4357 Dec, [facility] [place] [facility] [address] [facility] [id number], [place] [address]- 7191 Dec, [facility] [place] [facility] [address], [place] [address]- 3566 Dec, [facility] [address] [id number] [id number] Dec, Dental examination V72.2 [facility] [address] [place] [address] 15865- 5568 Dec, Schizoaffective disorder, unspecified 295.70 ; Persistent disorder of initiating 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.42 and Anxiety state, unspecified 300.00 [facility] [address] [place] [address] 78113961- 5255 Dec, [facility] [address] [place] [id number] [place] [address] 62863- 2612 Nov, High risk medication use V58.69 [facility] [address] [place] [id number] [place] [address] 41277- 1527 Nov, [place] [address] [place] [id number] [place] [address] 92522- 5932 Nov, [facility] [address] [place] [id number] [place] [address] 24560- 8957 Nov, High risk medication use V58.69 [place] [address] [place] [id number] [place] [address] 67125- 4748 Nov, [facility] [address] [place] [id number] [place] [address] 59985- 3825 Nov, [place] [address] [place] [id number] [place] [address] 80527- 6863 Nov, [facility] [address] [place] [id number] [place] [address] 25247- 6599 Nov, Hypothyroidism 244.9 ; Hypertriglyceridemia 272.1 and Prediabetes 790.29 [facility] [address] [place] [address] 58336- 3808 Nov, [place] [address] [place] [id number] [place] [address] 55402- 0786 Nov, [facility] [address] [place] [id number] [place] [address] 41737- 4365 Nov, Bulge of cervical disc without myelopathy 722.0 ; Lumbar facet arthropathy 721.3 ; Family history of stroke V17.1 ; Hyperthyroidism 242.90 and 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 long-term current use of medication V58.69 [facility] [address]- 6700 Nov, [facility] [address]- 0986 October, [facility] [address] [address]- 7518 October, [facility] [address] [id number] [place] [address] 610819- 7932 October, [facility] [address], [place] [address]- 7368 October, [facility] [address] [place] [address] 335451- 4403 October, [facility] [address], [place] [address]- 7991 October, [facility] [address], [place] [address]- 3227 October, Schizoaffective disorder, unspecified 295.70 and Persistent disorder of initiating 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.42 [facility] [address], [place] [address]- 6880 October, Schizoaffective disorder, unspecified 295.70 [facility] [address], [place] [address]- 6401 October, [facility] [address] [address]- 7214 October, [facility] [address], [place] [address]- 1678 October, [facility] [address] 2057 Sep, Lumbago of lumbar region with sciatica 724.2 and Neck pain 723.1 [facility] [address], [place] [address]- 0286 14 Sep, 2014 [facility] [place] [facility] [address] [id number] [place] [address]- 4676 13 Sep, 2014 [facility] [place] [facility] [address] [id number] [place] [address]- 3273 26 Aug, 2014 [facility] [place] [facility] [address] [id number] [place] [address]- 1157 Aug, [facility] [place] [facility] [address] [id number] [place] [address]- 6412 Aug, [facility] [place] [facility] [address] [id number] [place] [address]- 3987 Aug, [facility] [place] [facility] [address] [id number] [place] [address]- 9202 24 Aug, 2014 [facility] [place] [facility] [address] [id number] [place] [address]- 1547 24 Aug, 2014 [facility] [place] [facility] [address] [id number] [place] [address]- 4490 Aug, [facility] [place] [facility] [address] [id number] [place] [address]- 8796 20 Aug, 2014 [facility] [place] [facility] [address] [id number] [place] [address]- 1501 19 Aug, 2014 [facility] [place] [facility] [address] [id number] [place] [address]- 6811 19 Aug, 2014 [facility] [place] [facility] [address] [id number] [place] [address]- 1190 18 Aug, 2014 [facility] [place] [facility] [address] [id number] [place] [address]- 7430 18 Aug, 2014 [facility] [place] [facility] [address] [id number] [place] [address]- 3123 18 Aug, 2014 [facility] [place] [facility] [address] [id number] [place] [address]- 4753 18 Aug, 2014 [facility] [place] [facility] [address] [id number] [place] [address]- 5015 16 Aug, 2014 [facility] [place] [facility] [address] [id number] [place] [address]- 2206 Aug, 2014 [facility] [place] [facility] [address] [id number] [place] [address]- 0828 Aug, 2014 [facility] [place] [facility] [address] [id number] [place] [address]- 0291 Aug, 2014 [facility] [place] [facility] [address] [id number] [place] [address]- 7895 Aug, 2014 [facility] [place] [facility] [address] [id number] [place] [address]- 3392 Aug, 2014 [facility] [place] [facility] [address] [id number] [place] [address]- 2166 Aug, 2014 [facility] [place] [facility] [address] [id number] [place] [address]- 3348 Aug, 2014 [facility] [place] [facility] [address] [id number] [place] [address]- 5553 05 Aug, 2014 [facility] [place] [facility] [address] [id number] [place] [address]- 5248 Aug, [facility] [place] [facility] [address] [id number] [place] [address]- 0409 Aug, [facility] [place] [facility] [address] [id number] [place] [address]- 6126 Aug, 2014 [facility] [place] [facility] [address] [id number] [place] [address]- 4324 Aug, [facility] [place] [facility] [address] [id number] [place] [address]- 1954 Jul, [facility] [place] [facility] [address] [id number] [place] [address]- 4059 Jul, [facility] [place] [facility] [address] [id number] [place] [address]- 1602 Jul, [facility] [place] [facility] [address] [id number] [place] [address]- 3079 Jul, [facility] [place] [facility] [address] [id number] [place] [address]- 8696 Jul, [facility] [place] [facility] [address] [facility] [id number] [place] [address] Jul, [facility] [place] [facility] [address] [id number] [place] [address] Jul, 2014 [facility] [place] [facility] [address] [id number] [place] [address] Jul, [facility] [place] [facility] [address] [facility] [id number] [place] [address] Jul, [facility] [place] [facility] [address] [facility] [id number] [place] [address] Jul, [facility] [place] [facility] [address] [facility] [id number] [place] [address] Jun, [facility] [place] [facility] [address] [facility] [id number] [place] [address] Jun, [facility] [place] [facility] [address] [facility] [id number] [place] [address] Jun, [facility] [place] [facility] [address] [facility] [id number] [place] [address] Jun, [facility] [place] [facility] [address] [facility] [id number] [address] Jun, [facility] [place] [facility] [address] [facility] [id number] [place] [address] Jun, [facility] [place] [facility] [address] [facility] [id number] [place] [address] Jun, [facility] [place] [facility] [address] [facility] [id number] [place] [address] May, [facility] [place] [facility] [address] [id number] [place] [address] May, [facility] [place] [facility] [address] [id number] [place] [address] May, [facility] [place] [facility] [address] [id number] [place] [address] May, [facility] [place] [facility] [address] [id number] [place] [address] May, [facility] [place] [facility] [address] [id number] [place] [address] May, [facility] [place] [facility] [address] [id number] [place] [address] May, [facility] [place] [facility] [address] [id number] [place] [address] May, [facility] [place] [facility] [address] [id number] [place] [address] May, [facility] [place] [facility] [address] [id number] [place] [address] May, [facility] [place] [facility] [address] [id number] [place] [address] Apr, [facility] [place] [facility] [address] [id number] [place] [address] Apr, [facility] [place] [facility] [address] [id number] [place] [address] Apr, [facility] [place] [facility] [address] [id number] [place] [address] Apr, [facility] [place] [facility] [address] [id number] [place] [address] Apr, [facility] [place] [facility] [address] [id number] [place] [address] Apr, [facility] [place] [facility] [address] [id number] [place] [address] Apr, [facility] [place] [facility] [address] [id number] [place] [address] Apr, [facility] [place] [facility] [address] [id number] [place] [address] Apr, [facility] [place] [facility] [address] [id number] [place] [address] Mar, [facility] [place] [facility] [address] [id number] [place] [address] Mar, [facility] [place] [facility] [address] [id number] [place] [address] Mar, [facility] [place] [facility] [address] [id number] [place] [address] 2011 Mar, [facility] [place] [facility] [address] [id number] [place] [address] Mar, [facility] [place] [facility] [address] [id number] [place] [address] Mar, [facility] [place] [facility] [address] [id number] [place] [address] Mar, [facility] [place] [facility] [address] [id number] [place] [address] Mar, [facility] [place] [facility] [address] [id number] [address] Mar, [facility] [place] [facility] [address] [id number], [place] [address] Mar, [facility] [place] [facility] [address] [id number] [place] [address] Feb, [facility] [place] [facility] [address] [id number] [place] [address] Feb, [facility] [place] [facility] [address] [id number] [place] [address] 19 Feb, 2014 [facility] [place] [facility] [address] [id number] [place] [address] Feb, [facility] [place] [facility] [address] [id number] [place] [address] Feb, [facility] [place] [facility] [address] [id number] [place] [address] Jan, [facility] [place] [facility] [address] [id number] [place] [address] Jan, [facility] [place] [facility] [address] [id number] [place] [address] Jan, [facility] [place] [facility] [address] [id number] [place] [address] Jan, [facility] [place] [facility] [address] [id number] [place] [address] 94[address] Jan, [facility] [place] [facility] [address] [id number] [place] [address] Jan, [facility] [place] [facility] [address] [id number] [place] [address] 70[address] Jan, [facility] [place] [facility] [address] [id number] [place] [address] 12[address] Jan, [facility] [place] [facility] [address] [id number] [place] [address] Jan, [facility] [place] [facility] [address] [id number] [place] [address] 8424 Dec, [facility] [place] [facility] [address] [id number] [place] [address] Dec, [facility] [place] [facility] [address] [id number] [place] [address] 9420 Dec, [facility] [place] [facility] [address] [id number] [place] [address] Dec, [facility] [place] [facility] [address] [id number] [place] [address] Dec, [facility] [place] [facility] [address] [id number] [place] [address] Dec, [facility] [place] [facility] [address] [id number] [place] [address] Dec, [facility] [place] [facility] [address] [id number] [place] [address] Dec, [facility] [place] [facility] [address] [id number] [place] [address] Nov, [facility] [place] [facility] [address] [id number] [place] [address] Nov, [facility] [place] [facility] [address] [id number] [place] [address] Nov, [facility] [place] [facility] [address] [id number] [place] [address]- [address]489 Nov, [facility] [place] [facility] [address] [id number] [place] [address] Nov, [facility] [place] [facility] [address] [id number] [place] [address] Nov, [facility] [place] [facility] [address] [id number] [place] [address] 47[address] Nov, [facility] [place] [facility] [address] [id number] [place] [address]- 365[address] Nov, [facility] [place] [facility] [address] [id number] [place] [address]- 9435 Nov, [facility] [place] [facility] [address] [id number] [place] [address]- [address]265 Nov, [facility] [place] [facility] [address] [id number] [place] [address]- 9181 Nov, [facility] [place] [facility] [address] [id number] [place] [address]- 6480 Nov, [facility] [place] [facility] [address] [id number] [place] [address]- 9330 October, [facility] [place] [facility] [address] [id number] [place] [address]- 56[address] October, [facility] [place] [facility] [address] [id number] [place] [address] 2051 October, [facility] [place] [facility] [address] [id number] [place] [address] 3672 October, [facility] [place] [facility] [address] [id number] [place] [address]- 8829 October, [facility] [place] [facility] [address] [id number] [place] [address]- [address]231 Sep, [facility] [place] [facility] [address] [id number] [place] [address]- 6835 Sep, [facility] [place] [facility] [address] [id number] [place] [address]- 9206 Sep, [facility] [place] [facility] [address] [id number] [place] [address]- 3735 Sep, [facility] [place] [facility] [address] [id number] [place] [address]- 7[address] Sep, [facility] [place] [facility] [address] [id number] [place] [address]- 9834 Sep, [facility] [place] [facility] [address] [id number] [place] [address]- [address] Sep, [facility] [place] [facility] [address] [id number] [place] [address]- 480[address] Sep, [facility] [place] [facility] [address] [id number] [place] [address]- 1039 Sep, [facility] [place] [facility] [address] [id number] [place] [address]- 6177 Sep, [facility] [place] [facility] [address] [id number] [place] [address]- 5574 Sep, [facility] [place] [facility] [address] [id number] [place] [address]- 6041 Sep, [facility] [address] [id number] [place] [address]- 4417 Sep, [facility] [place] [facility] [address] [id number] [place] [address]- 6536 Sep, [facility] [address] [id number] [place] [address]- 5289 Sep, [facility] [place] [facility] [address] [id number] [place] [address]- 2492 Sep, [facility] [address] [id number] [place] [address]- 2760 Sep, [facility] [place] [facility] [address] [id number] [place] [address]- 2608 Sep, [facility] [place] [facility] [address] [id number] [place] [address]- 5512 Sep, [facility] [address] [id number] [place] [address]- 0660 Aug, [facility] [place] [facility] [address] [id number] [place] [address]- 3202 Aug, [facility] [address] [id number] [place] [address]- 1640 Aug, [facility] [place] [facility] [address] [id number] [place] [address]- 3167 Aug, [facility] [place] [facility] [address] [id number] [place] [address]- 4728 Jun, [facility] [place] [facility] [address] [id number] [place] [address]- 1062 Jun, [facility] [place] [facility] [address] [id number] [place] [address]- 6375 Mar, [facility] [place] [facility] [address] [id number] [place] [address]- 9434 Mar, [facility] [address] [id number] [address] 17 Nov, 2012 [facility] [id number], [place] [address] Sep, [facility] [id number], [place] [address] Jun, [facility] [id number], [place] [address] Jun, [facility] [id number], [place] [address] Apr, [facility] [id number], [place] [address] Apr, [facility] [id number], [place] [address] Apr, [facility] [id number], [place] [address] Mar, [facility] [address] [id number], [place] [address] Feb, IMMUNIZATIONS No Known Immunizations SOCIAL HISTORY Never Assessed REASON FOR VISIT Prior Authorization Request PLAN OF CARE VITAL SIGNS MEDICATIONS [...] History [facility] unit 03/2016 Hospitalization History [place] x 30 days
--- OUTSIDE RECORDS SUMMARY | 2018-08-13 18:19 | XMS REPORT ---
Author Author CHRISTO ADELA [facility] Address [address] [place] [address] Care Team Providers Care Slot Machine Floor Person Name Role Phone ADELA VILLAFUERTE Unavailable PROBLEMS Type Condition ICD9-CM Code [id number] Code Onset Dates Condition Status SNOMED Code Problem Other chronic pain G89.29 Active 44262771 Problem Bulging of cervical intervertebral disc M50.20 Active 017295645 Problem Vaginal burning N94.9 Active 428511016 Problem Type 2 diabetes mellitus with hyperglycemia E11.65 Active 26794825 Problem Type 2 diabetes mellitus without complications E11.9 Active 990453831 Problem Gastroesophageal reflux disease, esophagitis presence not specified K21.9 Active 943454972 Problem Hand eczema L30.9 Active 885957981 Problem 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 Active 330032973 Problem Type 2 diabetes mellitus without complication, without long-term current use of insulin E11.9 Active 304780118 Problem Hypothyroidism E03.9 Active 57321944 Problem Bulge of cervical disc without myelopathy M50.20 Active 447316241 Problem Cervical dysplasia N87.9 Active 72239639 Problem Prediabetes R73.09 Active 0213164 Problem Mild intermittent asthma, uncomplicated J45.20 Active 800440213 Problem Lumbar facet arthropathy M46.96 Active 718780489 Problem Generalized anxiety disorder F41.1 Active 76486604 Problem Hypertriglyceridemia E78.1 Active 406175979 Problem Schizoaffective disorder, bipolar type F25.0 Active 24579864 ALLERGIES No Information ENCOUNTERS Encounter Location Date Diagnosis [facility] [address] [facility] [id number] [address] Feb, [facility] [address] 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 [place] [id number] [address] Feb, Type 2 diabetes mellitus without complication, without long- term current use of insulin E11.9 ; Hypertriglyceridemia E78.1 and Gastroesophageal reflux disease, esophagitis presence not specified K21.9 [place] [address] [address] Feb, [place] [address] [place] [id number] [place] [address] 70159- 7877 Jan, [place] [address] [place] [id number] [place] [address] 53216- 5802 Jan, Type 2 diabetes mellitus without complication, without long- term current use of insulin E11.9 [place] [address] [address] 0[address] Dec, [place] [address] [place] [id number] [place] [address] 74034- 7976 Dec, [place] [address] [place] [id number] [place] [address] 67779- 0010 Dec, Type 2 diabetes mellitus without complications E11.9 ; 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 and BMI 40.0-44.9, adult Z68.41 [place] [address] [address] Dec, Type 2 diabetes mellitus without complication, without long- term current use of insulin E11.9 [place] [id number] [address]- 7897 Dec, [place] [id number] [address]- 9055 Dec, Type 2 diabetes mellitus without complication, without long- term current use of insulin E11.9 [place] [address] [address] 9033 Dec, Type 2 diabetes mellitus without complication, without long- term current use of insulin E11.9 ; Gastroesophageal reflux disease, esophagitis presence not specified K21.9 and BMI 40.0-44.9, adult Z68.41 [facility] [id number] [place] [address] 04918- 5814 Dec, [facility] [address] [place] [address] [id number] [place] [address] [id number] October, Dental examination Z01.20 [place] [address] 58995- 3949 Sep, [facility] [address] 47474- 6945 Sep, Hypertriglyceridemia E78.1 [place] [address] 57263- 9805 Sep, Hypothyroidism E03.9 ; Prediabetes R73.09 ; Mild intermittent asthma, uncomplicated J45.20 ; Bulge of cervical disc without myelopathy M50.20 ; Other chronic pain G89.29 ; Hand eczema L30.9 ; Right anterior knee pain M25.561 ; Hypertriglyceridemia E78.1 and BMI 40.0-44.9, adult Z68.41 [place] [address] [place] [id number] [place] [address] 97306- 8993 Sep, [facility] [address] [place] [id number] [place] [address] 17883- 2483 Sep, [place] [address] [place] [id number] [place] [address] 10126- 7781 Jul, [place] [address] 97200- 2720 May, Acute non-recurrent maxillary sinusitis J01.00 [facility] [address] [place] [id number] [place] [address] 56830 -5006 Mar, Other viral agents as the cause of diseases classified elsewhere B97.89 and Acute upper respiratory infection, unspecified J06.9 [place] [address] 44879- 7608 Mar, [facility] [address] [place] [address] [id number] [place] [address] 53452- 3463 Mar, Neck pain M54.2 [place] [address] 21031- 7728 27 Feb, 2017 Bulge of cervical disc without myelopathy M50.20 [place] [address] 41921- 8382 Feb, Neck pain M54.2 [place] [address] 90430- 6813 11 Feb, 2017 [place] [address] 04052- 8940 07 Feb, 2017 Bulge of cervical disc without myelopathy M50.20 ; Hypertriglyceridemia E78.1 ; Hand eczema L30.9 and Hypothyroidism E03.9 [place] [address] 16616- 4633 Jan, [facility] [address] [id number] October, 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 dental examination Z01.20 [place] [address] 48518- 1359 Sep, Generalized abdominal pain R10.84 [place] [address] 07124- 0716 Sep, Schizoaffective disorder, bipolar type F25.0 and Generalized anxiety disorder F41.1 [facility] [address] 44[address] -9729 Sep, [facility] [address] 24658 -1944 Sep, Vaginal burning N94.9 and Vaginal mitzi B37.3 [facility] [address] 51860 -9491 Sep, Gastroenteritis K52.9 [facility] [address] [place] [id number] [place] [address] 87271 -9718 18 Sep, 2016 Thrush B37.0 [facility] [address] 18[address] -0518 15 Sep, 2016 Pharyngitis due to other organism J02.[address] 9[address]50- 5233 Sep, [facility] [address] 72866 -5660 Aug, Cervicalgia M54.[address] 98556- 7657 09 Aug, 2016 Hypothyroidism E03.9 ; Dry skin L85.3 ; Plantar fasciitis, bilateral M72.2 and Other chronic pain G89.29 [facility] [address] 8[address] -4033 Aug, Abrasion T14.8 [facility] [address] [id number] Aug, Dental examination Z01.20 [facility] [place] [id number] [place] [address] 56429 -1926 Aug, Excessive cerumen in right ear canal H61.21 ; Impacted cerumen of both ears 380.4 and Bronchitis J40 [facility] [place] [id number] [place] [address] 02898 -8800 Jul, Bilateral impacted cerumen H61.23 and Acute non-recurrent frontal sinusitis J01.[address] 48339- 1512 May, Schizoaffective disorder, bipolar type F25.0 and Generalized anxiety disorder F41.[address] 31357- 3179 May, [place] [address] [place] [address]- 8315 May, Cervicalgia M54.2 and Hypertriglyceridemia E78.1 [facility] [address] [place] [id number] [place] [address] 95726- 0346 May, [facility] [address] [place] [address] [id number] [place] [address] 37803- 9583 May, STD exposure Z20.2 and Well woman exam Z01.419 [facility] [address] [place] [id number] [place] [address] 88895- 5888 May, [facility] [address] [place] [address] [id number] [place] [address] 44591- 6203 Mar, [facility] [address] [place] [id number] [place] [address] 80638- 8167 Dec, Pain in left knee M25.562 [facility] [address] [place] [id number] [place] [address] 16606- 7962 Dec, [facility] [address] [place] [address] [id number] [place] [address] 65355- 6770 Nov, [facility] [address] [place] [id number] [place] [address] 54562- 9571 October, [facility] [address] [place] [address] [id number] [place] [address] 89114- 1408 Aug, [facility] [address] [place] [id number] [place] [address] 55035- 0777 Jul, [facility] [address] [place] [id number] [place] [address] 51554- 2540 Jul, [facility] [address] [place] [id number] [place] [address] 05439- 1913 Jul, Plantar fasciitis M72.2 and 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 [facility] [address] [place] [id number] [place] [address] 41242- 6423 Jul, [facility] [address] [place] [id number] [place] [address] 26081- 6354 Jun, Plantar fasciitis M72.2 and Physical exam Z00.00 [facility] [address] [place] [id number] [place] [address] 05238- 3490 Jun, [facility] [address] [place] [id number] [place] [address] 09731- 6920 Jun, [facility] [address] [place] [id number] [place] [address] 99329- 9524 Jun, [facility] [address] [place] [id number] [place] [address] 12400- 0880 May, [facility] [address] [place] [id number] [place] [address] 60228- 0670 May, Hypertriglyceridemia E78.1 [facility] [address] [place] [id number] [place] [address] 05243- 7089 May, Hypothyroidism E03.9 ; Prediabetes R73.09 and Hypertriglyceridemia E78.1 [facility] [address] [place] [id number] [place] [address] 90142- 9360 May, [facility] [address] [place] [id number] [place] [address] 26375- 0639 May, [facility] [address] [place] [id number] [place] [address] 84249- 1684 May, Hypothyroidism E03.9 ; Prediabetes R73.09 and Hypertriglyceridemia E78.1 [facility] [address] [place] [address] 48634- 8643 Apr, Schizoaffective disorder, bipolar type F25.0 [facility] [address] [place] [id number] [place] [address] 65066- 5983 Mar, [facility] [address] [place] [id number] [place] [address] 74415- 8475 Mar, [facility] [address] [place] [id number] [place] [address] 21825- 6025 Mar, [facility] [address] [place] [address] 53022- 1587 30 Feb, 2015 [facility] [address] [place] [id number] [place] [address] 20694- 6602 24 Feb, 2015 [facility] [address] [place] [id number] [place] [address] 30021- 2286 16 Feb, 2015 [facility] [address] [place] [id number] [place] [address] 77624- 9862 15 Feb, 2015 Screen for STD (sexually transmitted disease) V74.5 ; Counseling on other sexually transmitted diseases V65.45 ; Back pain 724.5 ; Contact with or exposure to venereal diseases V01.6 and Pelvic pain in female 625.9 [facility] [address] [place] [id number] [place] [address] 17746- 4398 15 Feb, 2015 Schizoaffective disorder, unspecified 295.70 and Anxiety state, unspecified 300.00 [facility] [address] [place] [id number] [place] [address] 99541- 7476 14 Feb, 2015 [facility] [address] [place] [id number] [place] [address] 39014- 1956 10 Feb, 2015 [facility] [address] [place] [id number] [place] [address] 01673- 1927 03 Feb, 2015 Impacted cerumen of both ears 380.4 and Mild intermittent asthma 493.90 [facility] [address] [place] [id number] [place] [address] 06300- 5361 Feb, [facility] [address] [place] [id number] [place] [address] 40513- 2375 Jan, [facility] [address] [place] [id number] [place] [address] 02149- 0251 Jan, [facility] [address] [place] [id number] [place] [address] 49503- 7064 Jan, [facility] [address] [place] [address]- 2796 Jan, [facility] [address] [facility] [id number] [address]- 2859 Jan, [facility] [place] [facility] [address] [facility] [id number] [address]- 6038 Jan, [facility] [address] [facility] [id number] [address]- 2444 Jan, [facility] [place] [facility] [address] [facility] [id number] [place] [address]- 4189 Jan, [facility] [address] [facility] [id number] [place] [address] 67323- 7969 Jan, [facility] [place] [facility] [address] [place] [id number] [address]- 8360 Jan, [facility] [id number] [place] [address] 99213- 0091 Jan, [facility] [place] [facility] [address] [facility] [id number] [address]- 9450 Dec, Schizoaffective disorder, unspecified 295.70 [facility] [address] [address]- 1331 Dec, [facility] [place] [facility] [id number] [address]- 5343 Dec, [facility] [place] [facility] [address] [address]- 1676 Dec, [facility] [place] [facility] [address] 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.42 and Anxiety state, unspecified 300.00 [facility] [address] [place] [address] [id number]- 8190 Dec, [facility] [address] [place] [id number] [place] [address] 98175- 1156 Nov, High risk medication use V58.69 [facility] [address] [place] [id number] [place] [address] 06458- 8422 Nov, [place] [address] [place] [id number] [place] [address] 22814- 6999 Nov, [facility] [address] [place] [id number] [place] [address] 85934- 5040 Nov, High risk medication use V58.69 [place] [address] [place] [id number] [place] [address] 32291- 6585 Nov, [facility] [address] [place] [id number] [place] [address] 30389- 0829 Nov, [place] [address] [place] [id number] [place] [address] 55619- 6699 Nov, [facility] [address] [place] [id number] [place] [address] 70819- 2151 Nov, Hypothyroidism 244.9 ; Hypertriglyceridemia 272.1 and Prediabetes 790.29 [facility] [address] [place] [address] 77101- 5352 Nov, [place] [address] [place] [id number] [place] [address] 63791- 5478 Nov, [facility] [address] [place] [id number] [place] [address] 40876- 4483 Nov, Bulge of cervical disc without myelopathy 722.0 ; Lumbar facet arthropathy 721.3 ; Family history of stroke V17.1 ; Hyperthyroidism 242.90 and 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 long-term current use of medication V58.69 [facility] [address] 7732 Nov, [facility] [id number] 1274 October, [facility] [id number] 7285 October, [facility] [address] [place] [id number] [place] [address] 260202- 4551 October, [facility] [address] [address]- 0614 October, [facility] [address] [place] [address] 360864- 6665 October, [facility] [address] [address]- 7569 October, [facility] [address] [address]- 3820 October, Schizoaffective disorder, unspecified 295.70 and Persistent disorder of initiating 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.42 [facility] [address] [address]- 3858 October, Schizoaffective disorder, unspecified 295.70 [facility] [address] [address]- 7118 October, [facility] [id number] [address]- 7089 October, [facility] [id number] [address]- 0043 October, [facility] [id number] [address] 2024 Sep, Lumbago of lumbar region with sciatica 724.2 and Neck pain 723.1 [facility] [address] [address]- 3342 14 Sep, 2014 [facility] [place] [facility] [address] [id number] [place] [address]- 4960 13 Sep, 2014 [facility] [place] [facility] [address] [id number] [place] [address]- 4886 26 Aug, 2014 [facility] [place] [facility] [address] [id number] [place] [address]- 5449 Aug, [facility] [place] [facility] [address] [id number] [place] [address]- 9935 Aug, [facility] [place] [facility] [address] [id number] [place] [address]- 4309 Aug, [facility] [place] [facility] [address] [id number] [place] [address]- 5869 24 Aug, 2014 [facility] [place] [facility] [address] [id number] [place] [address]- 0793 24 Aug, 2014 [facility] [place] [facility] [address] [id number] [place] [address]- 9455 Aug, [facility] [place] [facility] [address] [id number] [place] [address]- 8565 20 Aug, 2014 [facility] [place] [facility] [address] [id number] [place] [address]- 1525 19 Aug, 2014 [facility] [place] [facility] [address] [id number] [place] [address]- 6383 19 Aug, 2014 [facility] [place] [facility] [address] [id number] [place] [address]- 1238 18 Aug, 2014 [facility] [place] [facility] [address] [id number] [place] [address]- 8467 18 Aug, 2014 [facility] [place] [facility] [address] [id number] [place] [address]- 0737 18 Aug, 2014 [facility] [place] [facility] [address] [id number] [place] [address]- 5773 18 Aug, 2014 [facility] [place] [facility] [address] [id number] [place] [address]- 3011 16 Aug, 2014 [facility] [place] [facility] [address] [id number] [place] [address]- 1102 Aug, 2014 [facility] [place] [facility] [address] [id number] [place] [address]- 3222 Aug, 2014 [facility] [place] [facility] [address] [id number] [place] [address]- 7949 Aug, 2014 [facility] [place] [facility] [address] [id number] [place] [address]- 0730 Aug, 2014 [facility] [place] [facility] [address] [id number] [place] [address]- 3406 Aug, 2014 [facility] [place] [facility] [address] [id number] [place] [address]- 8517 Aug, 2014 [facility] [place] [facility] [address] [id number] [place] [address]- 4035 Aug, 2014 [facility] [place] [facility] [address] [id number] [place] [address]- 3624 05 Aug, 2014 [facility] [place] [facility] [address] [id number] [place] [address]- 5930 Aug, [facility] [place] [facility] [address] [id number] [place] [address]- 6703 Aug, [facility] [place] [facility] [address] [id number] [place] [address]- 0037 Aug, 2014 [facility] [place] [facility] [address] [id number] [place] [address]- 8128 Aug, [facility] [place] [facility] [address] [id number] [place] [address]- 1484 Jul, [facility] [place] [facility] [address] [id number] [place] [address]- 2147 Jul, [facility] [place] [facility] [address] [id number] [place] [address]- 0355 Jul, [facility] [place] [facility] [address] [id number] [place] [address] Jul, [facility] [place] [facility] [address] [id number] [place] [address] Jul, [facility] [place] [facility] [address] [facility] [id number] [place] [address] Jul, [facility] [place] [facility] [address] [id number] [place] [address] Jul, 2014 [facility] [place] [facility] [address] [id number] [place] [address] Jul, [facility] [place] [facility] [address] [facility] [id number] [place] [address] Jul, [facility] [place] [facility] [address] [facility] [id number] [place] [address] Jul, [facility] [place] [facility] [address] [facility] [id number] [place] [address] Jun, [facility] [place] [facility] [address] [facility] [id number] [place] [address] Jun, [facility] [place] [facility] [address] [facility] [id number] [place] [address] Jun, [facility] [place] [facility] [address] [facility] [id number] [place] [address] Jun, [facility] [place] [facility] [address] [facility] [id number] [address] Jun, [facility] [place] [facility] [address] [facility] [id number] [place] [address] Jun, [facility] [place] [facility] [address] [facility] [id number] [place] [address] Jun, [facility] [place] [facility] [address] [facility] [id number] [place] [address] May, [facility] [place] [facility] [address] [id number] [place] [address] May, [facility] [place] [facility] [address] [id number] [place] [address] May, [facility] [place] [facility] [address] [id number] [place] [address] May, [facility] [place] [facility] [address] [id number] [place] [address] May, [facility] [place] [facility] [address] [id number] [place] [address] May, [facility] [place] [facility] [address] [id number] [place] [address] May, [facility] [place] [facility] [address] [id number] [place] [address] May, [facility] [place] [facility] [address] [id number] [place] [address] May, [facility] [place] [facility] [address] [id number] [place] [address] May, [facility] [place] [facility] [address] [id number] [place] [address] Apr, [facility] [place] [facility] [address] [id number] [place] [address] Apr, [facility] [place] [facility] [address] [id number] [place] [address] Apr, [facility] [place] [facility] [address] [id number] [place] [address] Apr, [facility] [place] [facility] [address] [id number] [place] [address] Apr, [facility] [place] [facility] [address] [id number] [place] [address] Apr, [facility] [place] [facility] [address] [id number] [place] [address] Apr, [facility] [place] [facility] [address] [id number] [place] [address] Apr, [facility] [place] [facility] [address] [id number] [place] [address] Apr, [facility] [place] [facility] [address] [id number] [place] [address] Mar, [facility] [place] [facility] [address] [id number] [place] [address] Mar, [facility] [place] [facility] [address] [id number] [place] [address] Mar, [facility] [place] [facility] [address] [id number] [place] [address] Mar, [facility] [place] [facility] [address] [id number] [place] [address] Mar, [facility] [place] [facility] [address] [id number] [place] [address] Mar, [facility] [place] [facility] [address] [id number] [place] [address] Mar, [facility] [place] [facility] [address] [id number] [place] [address] Mar, [facility] [place] [facility] [address] [id number] [address] Mar, [facility] [place] [facility] [address] [id number] [place] [address] Mar, [facility] [place] [facility] [address] [id number] [place] [address] Feb, [facility] [place] [facility] [address] [id number] [place] [address] Feb, [facility] [place] [facility] [address] [id number] [place] [address] 19 Feb, 2014 [facility] [place] [facility] [address] [id number] [place] [address]- [address] Feb, [facility] [place] [facility] [address] [id number] [place] [address] Feb, [facility] [place] [facility] [address] [id number] [place] [address]- [address] Jan, [facility] [place] [facility] [address] [id number] [place] [address]- 39[address] Jan, [facility] [place] [facility] [address] [id number] [place] [address] Jan, [facility] [place] [facility] [address] [id number] [place] [address]- [address] Jan, [facility] [place] [facility] [address] [id number] [place] [address] 27[address] Jan, [facility] [place] [facility] [address] [id number] [place] [address]- 8483 Jan, [facility] [place] [facility] [address] [id number] [place] [address] Jan, [facility] [place] [facility] [address] [id number] [place] [address]- 9[address] Jan, [facility] [place] [facility] [address] [id number] [place] [address]- [address] Jan, [facility] [place] [facility] [address] [id number] [place] [address] 3416 Dec, [facility] [place] [facility] [address] [id number] [place] [address]- 74[address] Dec, [facility] [place] [facility] [address] [id number] [place] [address]- [address] Dec, [facility] [place] [facility] [address] [id number] [place] [address]- [address]34 Dec, [facility] [place] [facility] [address] [id number] [place] [address] Dec, [facility] [place] [facility] [address] [id number] [place] [address]959 Dec, [facility] [place] [facility] [address] [id number] [place] [address]- 9682 Dec, [facility] [place] [facility] [address] [id number] [place] [address]- 2968 Dec, [facility] [place] [facility] [address] [id number] [place] [address] 8239 Nov, [facility] [place] [facility] [address] [id number] [place] [address]- 9[address] Nov, [facility] [place] [facility] [address] [id number] [place] [address]- 4[address] Nov, [facility] [place] [facility] [address] [id number] [place] [address]- 4426 Nov, [facility] [place] [facility] [address] [id number] [place] [address]- 1187 Nov, [facility] [place] [facility] [address] [id number] [place] [address]- [address] Nov, [facility] [place] [facility] [address] [id number] [place] [address]- 7799 Nov, [facility] [place] [facility] [address] [id number] [place] [address]- 2035 Nov, [facility] [place] [facility] [address] [id number] [place] [address]- 1061 Nov, [facility] [place] [facility] [address] [id number] [place] [address]- 8127 Nov, [facility] [place] [facility] [address] [id number] [place] [address]- [address]239 Nov, [facility] [place] [facility] [address] [id number] [place] [address]- 7998 Nov, [facility] [place] [facility] [address] [id number] [place] [address]- 4[address] October, [facility] [place] [facility] [address] [id number] [place] [address]- 61[address] October, [facility] [place] [facility] [address] [id number] [place] [address]- 8827 October, [facility] [place] [facility] [address] [id number] [place] [address]- 5[address] October, [facility] [place] [facility] [address] [id number] [place] [address]- [address] October, [facility] [place] [facility] [address] [id number] [place] [address]- 8826 Sep, [facility] [place] [facility] [address] [id number] [place] [address]- 5829 Sep, [facility] [place] [facility] [address] [id number] [place] [address]- 9801 Sep, [facility] [place] [facility] [address] [id number] [place] [address]- 6036 Sep, [facility] [place] [facility] [address] [id number] [place] [address]- 9527 Sep, [facility] [place] [facility] [address] [id number] [place] [address]- 0830 Sep, [facility] [place] [facility] [address] [id number] [place] [address]- 0374 Sep, [facility] [place] [facility] [address] [id number] [place] [address]- 7137 Sep, [facility] [place] [facility] [address] [id number] [place] [address]- 4448 Sep, [facility] [place] [facility] [address] [id number] [place] [address]- 6547 Sep, [facility] [place] [facility] [address] [id number] [place] [address]- 5252 Sep, [facility] [place] [facility] [address] [id number] [place] [address]- 0701 Sep, [facility] [address] [id number] [place] [address]- 1668 Sep, [facility] [place] [facility] [address] [id number] [place] [address]- 5651 Sep, [facility] [address] [id number] [place] [address]- 0206 Sep, [facility] [place] [facility] [address] [id number] [place] [address]- 6827 Sep, [facility] [address] [id number] [place] [address]- 0628 Sep, [facility] [place] [facility] [address] [id number] [place] [address]- 0226 Sep, [facility] [place] [facility] [address] [id number] [place] [address]- 7290 Sep, [facility] [address] [id number] [place] [address]- 5768 Aug, [facility] [place] [facility] [address] [id number] [place] [address]- 3953 Aug, [facility] [address] [id number] [place] [address]- 4215 Aug, [facility] [place] [facility] [address] [id number] [place] [address]- 1269 Aug, [facility] [place] [facility] [address] [id number] [place] [address]- 4300 Jun, [facility] [place] [facility] [address] [id number] [place] [address]- 7571 Jun, [facility] [place] [facility] [address] [id number] [place] [address]- 3876 Mar, [facility] [place] [facility] [address] [id number] [place] [address]- 2401 Mar, [facility] [address] [id number] [address] Nov, [facility] [id number] [address] Sep, [facility] [address] [id number] [address] Jun, [facility] [id number] [address] Jun, [facility] [id number] [address] 8547 Apr, [facility] [id number] [address]- 99[address] Apr, [facility] [id number] [address] 1606 Apr, [facility] [id number] [address]- 9817 Mar, [facility] [address] [id number] [address]- [address]70 Feb, IMMUNIZATIONS No Known Immunizations SOCIAL HISTORY Never Assessed REASON FOR VISIT 1 wk f/u DM Ed PLAN OF CARE VITAL SIGNS MEDICATIONS Medication Instructions Dosage Frequency Start Date End Date Duration Status Victoza 18 MG/3ML Subcutaneous Once a day 0.6 mg daily x 7 days, then 1.2 mg daily 24h Feb, Active RESULTS No Results PROCEDURES [...]
--- OUTSIDE RECORDS SUMMARY | 2018-08-13 18:20 | XMS REPORT ---
Author Author CHRISTO ADELA [facility] Address [address] [place] [address] Care Team Providers Care Dot Compliance Coordinator Name Role Phone ADELA VILLAFUERTE Unavailable PROBLEMS Type Condition ICD9-CM Code OQF24-IP Code Onset Dates Condition Status SNOMED Code Problem Other chronic pain G89.29 Active 83512839 Problem Bulging of cervical intervertebral disc M50.20 Active 122172244 Problem Vaginal burning N94.9 Active 999616908 Problem Type 2 diabetes mellitus with hyperglycemia E11.65 Active 07488576 Problem Type 2 diabetes mellitus without complications E11.9 Active 940076661 Problem Gastroesophageal reflux disease, esophagitis presence not specified K21.9 Active 759778653 Problem Hand eczema L30.9 Active 232566063 Problem medical terminologist 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 Active 983997335 Problem Type 2 diabetes mellitus without complication, without long-term current use of insulin E11.9 Active 274936913 Problem Hypothyroidism E03.9 Active 56905754 Problem Bulge of cervical disc without myelopathy M50.20 Active 473957410 Problem Cervical dysplasia N87.9 Active 42414356 Problem Prediabetes R73.09 Active 8936455 Problem Mild intermittent asthma, uncomplicated J45.20 Active 398224668 Problem Lumbar facet arthropathy M46.96 Active 182106689 Problem Generalized anxiety disorder F41.1 Active 42834267 Problem Hypertriglyceridemia E78.1 Active 780808539 Problem Schizoaffective disorder, bipolar type F25.0 Active 01006154 ALLERGIES No Information ENCOUNTERS Encounter Location Date Diagnosis [facility] [address] [facility] [id number], [place] [address] Feb, [facility] [address] [facility] [id number], [place] [address] Feb, Type 2 diabetes mellitus with hyperglycemia E11.65 and medical terminologist 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 [place] [address], [place] [address] Feb, Type 2 diabetes mellitus without complication, without long- term current use of insulin E11.9 ; Hypertriglyceridemia E78.1 and Gastroesophageal reflux disease, esophagitis presence not specified K21.9 [place] [address], [place] [address] Feb, [place] [address] [place] [id number] [place] [address] 10110- 7543 Jan, [place] [address] [place] [id number] [place] [address] 52786- 3355 Jan, Type 2 diabetes mellitus without complication, without long- term current use of insulin E11.9 [place] [address], [place] [address] 2636 Dec, [place] [address] [place] [id number] [place] [address] 95082- 3350 Dec, [place] [address] [place] [id number] [place] [address] 14977- 8801 Dec, Type 2 diabetes mellitus without complications E11.9 ; medical terminologist 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 and BMI 40.0-44.9, adult Z68.41 [place] [address], [place] [address] Dec, Type 2 diabetes mellitus without complication, without long- term current use of insulin E11.9 [place] [address], [place] [address]- 1372 Dec, [place] [address], [place] [address] 5043 Dec, Type 2 diabetes mellitus without complication, without long- term current use of insulin E11.9 [place] [address], [place] [address]- 0[address] Dec, Type 2 diabetes mellitus without complication, without long- term current use of insulin E11.9 ; Gastroesophageal reflux disease, esophagitis presence not specified K21.9 and BMI 40.0-44.9, adult Z68.41 [facility] [address] [place] [address] 30557- 9258 Dec, [facility] [address] [place] [address] [id number] [place] [address] [id number] October, Dental examination Z01.20 [place] [address] [address]- 6057 Sep, [facility] [address] 40949- 2464 Sep, Hypertriglyceridemia E78.1 [place] [address] 48613- 7135 Sep, Hypothyroidism E03.9 ; Prediabetes R73.09 ; Mild intermittent asthma, uncomplicated J45.20 ; Bulge of cervical disc without myelopathy M50.20 ; Other chronic pain G89.29 ; Hand eczema L30.9 ; Right anterior knee pain M25.561 ; Hypertriglyceridemia E78.1 and BMI 40.0-44.9, adult Z68.41 [place] [address] [place] [id number] [place] [address] 02865- 1544 Sep, [facility] [address] [place] [id number] [place] [address] 84462- 8941 Sep, [place] [address] [place] [id number] [place] [address] 44392- 9406 Jul, [place] [address] 74205- 6403 May, Acute non-recurrent maxillary sinusitis J01.00 [facility] [address] [place] [id number] [place] [address] 89885 -9625 Mar, Other viral agents as the cause of diseases classified elsewhere B97.89 and Acute upper respiratory infection, unspecified J06.9 [place] [address] 21701- 3152 Mar, [facility] [address] [place] [id number] [place] [address] 20777- 6792 Mar, Neck pain M54.2 [place] [address] 00710- 8878 27 Feb, 2017 Bulge of cervical disc without myelopathy M50.20 [place] [address] 15824- 0249 Feb, Neck pain M54.2 [place] [address] 20508- 9579 11 Feb, 2017 [place] [address] 58261- 0453 07 Feb, 2017 Bulge of cervical disc without myelopathy M50.20 ; Hypertriglyceridemia E78.1 ; Hand eczema L30.9 and Hypothyroidism E03.9 [place] [address] 93711- 2126 Jan, [facility] [address] [id number] October, 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 dental examination Z01.20 [place] [address] 47421- 8698 Sep, Generalized abdominal pain R10.84 [place] [address] 57896- 1878 Sep, Schizoaffective disorder, bipolar type F25.0 and Generalized anxiety disorder F41.1 [facility] [address] 8[address]80 -8411 Sep, [facility] [address] 34224 -1837 Sep, Vaginal burning N94.9 and Vaginal mitzi B37.3 [facility] [address] 27722 -1076 Sep, Gastroenteritis K52.9 [facility] [address] [place] [id number] [place] [address] 07813 -9404 18 Sep, 2016 Thrush B37.0 [facility] [address] 15996 -9452 15 Sep, 2016 Pharyngitis due to other organism J02.[address] 35393- 8880 Sep, [facility] [address] 53580 -0270 Aug, Cervicalgia M54.[address] 46911- 0516 09 Aug, 2016 Hypothyroidism E03.9 ; Dry skin L85.3 ; Plantar fasciitis, bilateral M72.2 and Other chronic pain G89.29 [facility] [address] 72284 -3034 Aug, Abrasion T14.8 [facility] [address] [id number] Aug, Dental examination Z01.20 [facility] [place] [id number] [place] [address] 93835 -5372 Aug, Excessive cerumen in right ear canal H61.21 ; Impacted cerumen of both ears 380.4 and Bronchitis J40 [facility] [place] [id number] [place] [address] 41266 -0991 Jul, Bilateral impacted cerumen H61.23 and Acute non-recurrent frontal sinusitis J01.[address] 33507- 8199 May, Schizoaffective disorder, bipolar type F25.0 and Generalized anxiety disorder F41.[address] 71554- 3763 May, [place] [address] [address]- 5285 May, Cervicalgia M54.2 and Hypertriglyceridemia E78.1 [facility] [address] [place] [id number] [place] [address] 28117- 9016 May, [facility] [address] [place] [id number] [place] [address] 06349- 4760 May, STD exposure Z20.2 and Well woman exam Z01.419 [facility] [address] [place] [id number] [place] [address] 62268- 4361 May, [facility] [address] [place] [id number] [place] [address] 56351- 7860 Mar, [facility] [address] [place] [id number] [place] [address] 88020- 6021 Dec, Pain in left knee M25.562 [facility] [address] [place] [id number] [place] [address] 83449- 5043 Dec, [facility] [address] [place] [id number] [place] [address] 97752- 2468 Nov, [facility] [address] [place] [id number] [place] [address] 25591- 0594 October, [facility] [address] [place] [id number] [place] [address] 07755- 3563 Aug, [facility] [address] [place] [id number] [place] [address] 86460- 6047 Jul, [facility] [address] [place] [id number] [place] [address] 86087- 2549 Jul, [facility] [address] [place] [id number] [place] [address] 75105- 9570 Jul, Plantar fasciitis M72.2 and 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 [facility] [address] [place] [id number] [place] [address] 13325- 8885 Jul, [facility] [address] [place] [id number] [place] [address] 23754- 6357 Jun, Plantar fasciitis M72.2 and Physical exam Z00.00 [facility] [address] [place] [id number] [place] [address] 63062- 3946 Jun, [facility] [address] [place] [id number] [place] [address] 77716- 2881 Jun, [facility] [address] [place] [id number] [place] [address] 36128- 7660 Jun, [facility] [address] [place] [id number] [place] [address] 22154- 7674 May, [facility] [address] [place] [id number] [place] [address] 72072- 2134 May, Hypertriglyceridemia E78.1 [facility] [address] [place] [id number] [place] [address] 67486- 5053 May, Hypothyroidism E03.9 ; Prediabetes R73.09 and Hypertriglyceridemia E78.1 [facility] [address] [place] [id number] [place] [address] 28343- 2870 May, [facility] [address] [place] [id number] [place] [address] 77628- 8547 May, [facility] [address] [place] [id number] [place] [address] 06368- 8548 May, Hypothyroidism E03.9 ; Prediabetes R73.09 and Hypertriglyceridemia E78.1 [facility] [address] [place] [address] 85208- 1502 Apr, Schizoaffective disorder, bipolar type F25.0 [facility] [address] [place] [id number] [place] [address] 77792- 9179 Mar, [facility] [address] [place] [id number] [place] [address] 98145- 2952 Mar, [facility] [address] [place] [id number] [place] [address] 72227- 0652 Mar, [facility] [address] [place] [address] 90202- 2710 30 Feb, 2015 [facility] [address] [place] [id number] [place] [address] 26254- 9780 24 Feb, 2015 [facility] [address] [place] [id number] [place] [address] 99744- 7981 16 Feb, 2015 [facility] [address] [place] [id number] [place] [address] 17636- 2578 15 Feb, 2015 Screen for STD (sexually transmitted disease) V74.5 ; Counseling on other sexually transmitted diseases V65.45 ; Back pain 724.5 ; Contact with or exposure to venereal diseases V01.6 and Pelvic pain in female 625.9 [facility] [address] [place] [id number] [place] [address] 67684- 2940 15 Feb, 2015 Schizoaffective disorder, unspecified 295.70 and Anxiety state, unspecified 300.00 [facility] [address] [place] [id number] [place] [address] 56518- 2291 14 Feb, 2015 [facility] [address] [place] [id number] [place] [address] 16210- 0067 10 Feb, 2015 [facility] [address] [place] [id number] [place] [address] 95771- 1307 03 Feb, 2015 Impacted cerumen of both ears 380.4 and Mild intermittent asthma 493.90 [facility] [address] [place] [id number] [place] [address] 88409- 1787 Feb, [facility] [address] [place] [id number] [place] [address] 80337- 5180 Jan, [facility] [address] [place] [id number] [place] [address] 91411- 0211 Jan, [facility] [address] [place] [id number] [place] [address] 76561- 8488 Jan, [facility] [address] [place] [address]- 2072 Jan, [facility] [address] [facility] [id number], [place] [address]- 2461 Jan, [facility] [place] [facility] [address] [facility] [id number], [place] [address]- 2224 Jan, [facility] [address] [facility] [id number], [place] [address]- 5880 Jan, [facility] [place] [facility] [address] [facility] [id number], [place] [address]- 9579 Jan, [facility] [address] [facility] [id number] [place] [address] 78012- 4628 Jan, [facility] [place] [facility] [address] [place] [id number], [place] [address]- 0211 Jan, [facility] [address] [place] [address] 15046- 2422 Jan, [facility] [place] [facility] [address] [facility] [id number], [place] [address]- 7408 Dec, Schizoaffective disorder, unspecified 295.70 [facility] [address], [place] [address]- 4980 Dec, [facility] [place] [facility] [address], [place] [address]- 4186 Dec, [facility] [place] [facility] [address], [place] [address]- 5124 Dec, [facility] [place] [facility] [address] [facility] [id number], [place] [address]- 8126 Dec, [facility] [place] [facility] [address], [place] [address]- 2791 Dec, [facility] [address] [id number] [address] Dec, Dental examination V72.2 [facility] [address] [place] [address] 27615- 0715 Dec, Schizoaffective disorder, unspecified 295.70 ; Persistent disorder of initiating 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.42 and Anxiety state, unspecified 300.00 [facility] [address] [place] [address] 48641948- 9843 Dec, [facility] [address] [place] [id number] [place] [address] 07721- 5427 Nov, High risk medication use V58.69 [facility] [address] [place] [id number] [place] [address] 44095- 8730 Nov, [place] [address] [place] [id number] [place] [address] 86248- 9847 Nov, [facility] [address] [place] [id number] [place] [address] 97965- 1953 Nov, High risk medication use V58.69 [place] [address] [place] [id number] [place] [address] 68840- 2398 Nov, [facility] [address] [place] [id number] [place] [address] 23599- 3556 Nov, [place] [address] [place] [id number] [place] [address] 81751- 5443 Nov, [facility] [address] [place] [id number] [place] [address] 94932- 2545 Nov, Hypothyroidism 244.9 ; Hypertriglyceridemia 272.1 and Prediabetes 790.29 [facility] [address] [place] [address] 56136- 7238 Nov, [place] [address] [place] [id number] [place] [address] 29232- 0011 Nov, [facility] [address] [place] [id number] [place] [address] 31678- 4432 Nov, Bulge of cervical disc without myelopathy 722.0 ; Lumbar facet arthropathy 721.3 ; Family history of stroke V17.1 ; Hyperthyroidism 242.90 and 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 long-term current use of medication V58.69 [facility] [address] 8243 Nov, [facility] [address]- 9802 October, [facility] [address] [address]- 4423 October, [facility] [address] [place] [id number] [place] [address] 100875- 7145 October, [facility] [address], [place] [address]- 6594 October, [facility] [address] [place] [address] 075930- 8041 October, [facility] [address], [place] [address]- 1435 October, [facility] [address], [place] [address]- 5949 October, Schizoaffective disorder, unspecified 295.70 and Persistent disorder of initiating 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.42 [facility] [address], [place] [address]- 4477 October, Schizoaffective disorder, unspecified 295.70 [facility] [address], [place] [address]- 4300 October, [facility] [address]- 9094 October, [facility] [address], [place] [address]- 4049 October, [facility] [address] [address]- 5740 Sep, Lumbago of lumbar region with sciatica 724.2 and Neck pain 723.1 [facility] [address], [place] [address]- 4326 14 Sep, 2014 [facility] [place] [facility] [address] [id number] [place] [address]- 4104 13 Sep, 2014 [facility] [place] [facility] [address] [id number] [place] [address]- 8065 26 Aug, 2014 [facility] [place] [facility] [address] [id number] [place] [address]- 6922 Aug, [facility] [place] [facility] [address] [id number] [place] [address]- 0378 Aug, [facility] [place] [facility] [address] [id number] [place] [address]- 0215 Aug, [facility] [place] [facility] [address] [id number] [place] [address]- 6827 24 Aug, 2014 [facility] [place] [facility] [address] [id number] [place] [address]- 4884 24 Aug, 2014 [facility] [place] [facility] [address] [id number] [place] [address]- 2820 Aug, [facility] [place] [facility] [address] [id number] [place] [address]- 1451 20 Aug, 2014 [facility] [place] [facility] [address] [id number] [place] [address]- 7794 19 Aug, 2014 [facility] [place] [facility] [address] [id number] [place] [address]- 1015 19 Aug, 2014 [facility] [place] [facility] [address] [id number] [place] [address]- 6350 18 Aug, 2014 [facility] [place] [facility] [address] [id number] [place] [address]- 9217 18 Aug, 2014 [facility] [place] [facility] [address] [id number] [place] [address]- 0398 18 Aug, 2014 [facility] [place] [facility] [address] [id number] [place] [address]- 7746 18 Aug, 2014 [facility] [place] [facility] [address] [id number] [place] [address]- 1408 16 Aug, 2014 [facility] [place] [facility] [address] [id number] [place] [address]- 2615 Aug, 2014 [facility] [place] [facility] [address] [id number] [place] [address]- 5470 Aug, 2014 [facility] [place] [facility] [address] [id number] [place] [address]- 2572 Aug, 2014 [facility] [place] [facility] [address] [id number] [place] [address]- 4231 Aug, 2014 [facility] [place] [facility] [address] [id number] [place] [address]- 0018 Aug, 2014 [facility] [place] [facility] [address] [id number] [place] [address]- 8035 Aug, 2014 [facility] [place] [facility] [address] [id number] [place] [address]- 4515 Aug, 2014 [facility] [place] [facility] [address] [id number] [place] [address]- 9447 05 Aug, 2014 [facility] [place] [facility] [address] [id number] [place] [address]- 1671 Aug, [facility] [place] [facility] [address] [id number] [place] [address]- 3866 Aug, [facility] [place] [facility] [address] [id number] [place] [address]- 4938 Aug, 2014 [facility] [place] [facility] [address] [id number] [place] [address]- 8374 Aug, [facility] [place] [facility] [address] [id number] [place] [address]- 5252 Jul, [facility] [place] [facility] [address] [id number] [place] [address]- 9681 Jul, [facility] [place] [facility] [address] [id number] [place] [address]- 2384 Jul, [facility] [place] [facility] [address] [id number] [place] [address]- 5280 Jul, [facility] [place] [facility] [address] [id number] [place] [address]- 1106 Jul, [facility] [place] [facility] [address] [facility] [id number] [place] [address]- 9044 Jul, [facility] [place] [facility] [address] [id number] [place] [address]- 4806 Jul, 2014 [facility] [place] [facility] [address] [id number] [place] [address]- 0797 Jul, [facility] [place] [facility] [address] [facility] [id number] [place] [address]- 6780 Jul, [facility] [place] [facility] [address] [facility] [id number] [place] [address]- 7435 Jul, [facility] [place] [facility] [address] [facility] [id number] [place] [address]- 2205 Jun, [facility] [place] [facility] [address] [facility] [id number] [place] [address]- 2936 Jun, [facility] [place] [facility] [address] [facility] [id number] [place] [address] Jun, [facility] [place] [facility] [address] [facility] [id number] [place] [address] Jun, [facility] [place] [facility] [address] [facility] [id number] [address] Jun, [facility] [place] [facility] [address] [facility] [id number] [place] [address] Jun, [facility] [place] [facility] [address] [facility] [id number] [place] [address] Jun, [facility] [place] [facility] [address] [facility] [id number] [place] [address] May, [facility] [place] [facility] [address] [id number] [place] [address] May, [facility] [place] [facility] [address] [id number] [place] [address] May, [facility] [place] [facility] [address] [id number] [place] [address] May, [facility] [place] [facility] [address] [id number] [place] [address] May, [facility] [place] [facility] [address] [id number] [place] [address] May, [facility] [place] [facility] [address] [id number] [place] [address] May, [facility] [place] [facility] [address] [id number] [place] [address]- [address] May, [facility] [place] [facility] [address] [id number] [place] [address]- [address] May, [facility] [place] [facility] [address] [id number] [place] [address] May, [facility] [place] [facility] [address] [id number] [place] [address] Apr, [facility] [place] [facility] [address] [id number] [place] [address] Apr, [facility] [place] [facility] [address] [id number] [place] [address]- [address] Apr, [facility] [place] [facility] [address] [id number] [place] [address] Apr, [facility] [place] [facility] [address] [id number] [place] [address] Apr, [facility] [place] [facility] [address] [id number] [place] [address] Apr, [facility] [place] [facility] [address] [id number] [place] [address] Apr, [facility] [place] [facility] [address] [id number] [place] [address] Apr, [facility] [place] [facility] [address] [id number] [place] [address] Apr, [facility] [place] [facility] [address] [id number] [place] [address] Mar, [facility] [place] [facility] [address] [id number] [place] [address] Mar, [facility] [place] [facility] [address] [id number] [place] [address] Mar, [facility] [place] [facility] [address] [id number] [place] [address] Mar, [facility] [place] [facility] [address] [id number] [place] [address] Mar, [facility] [place] [facility] [address] [id number] [place] [address] Mar, [facility] [place] [facility] [address] [id number] [place] [address] Mar, [facility] [place] [facility] [address] [id number] [place] [address] Mar, [facility] [place] [facility] [address] [id number], [place] [address] Mar, [facility] [place] [facility] [address] [id number], [place] [address] Mar, [facility] [place] [facility] [address] [id number] [place] [address] Feb, [facility] [place] [facility] [address] [id number] [place] [address] Feb, [facility] [place] [facility] [address] [id number] [place] [address] 19 Feb, 2014 [facility] [place] [facility] [address] [id number] [place] [address] Feb, [facility] [place] [facility] [address] [id number] [place] [address] Feb, [facility] [place] [facility] [address] [id number] [place] [address] Jan, [facility] [place] [facility] [address] [id number] [place] [address] Jan, [facility] [place] [facility] [address] [id number] [place] [address] Jan, [facility] [place] [facility] [address] [id number] [place] [address] Jan, [facility] [place] [facility] [address] [id number] [place] [address] Jan, [facility] [place] [facility] [address] [id number] [place] [address]- [address] Jan, [facility] [place] [facility] [address] [id number] [place] [address]- 140[address] Jan, [facility] [place] [facility] [address] [id number] [place] [address] Jan, [facility] [place] [facility] [address] [id number] [place] [address] Jan, [facility] [place] [facility] [address] [id number] [place] [address] Dec, [facility] [place] [facility] [address] [id number] [place] [address]- [address] Dec, [facility] [place] [facility] [address] [id number] [place] [address]- [address]96 Dec, [facility] [place] [facility] [address] [id number] [place] [address]- [address] Dec, [facility] [place] [facility] [address] [id number] [place] [address]- [address]96 Dec, [facility] [place] [facility] [address] [id number] [place] [address]- 1149 Dec, [facility] [place] [facility] [address] [id number] [place] [address] Dec, [facility] [place] [facility] [address] [id number] [place] [address] Dec, [facility] [place] [facility] [address] [id number] [place] [address] Nov, [facility] [place] [facility] [address] [id number] [place] [address] Nov, [facility] [place] [facility] [address] [id number] [place] [address]- 4715 Nov, [facility] [place] [facility] [address] [id number] [place] [address]- [address] Nov, [facility] [place] [facility] [address] [id number] [place] [address] Nov, [facility] [place] [facility] [address] [id number] [place] [address]- [address] Nov, [facility] [place] [facility] [address] [id number] [place] [address] Nov, [facility] [place] [facility] [address] [id number] [place] [address] 5947 Nov, [facility] [place] [facility] [address] [id number] [place] [address] 1460 Nov, [facility] [place] [facility] [address] [id number] [place] [address]- 72[address] Nov, [facility] [place] [facility] [address] [id number] [place] [address]- 1771 Nov, [facility] [place] [facility] [address] [id number] [place] [address]- 7980 Nov, [facility] [place] [facility] [address] [id number] [place] [address]- [address] October, [facility] [place] [facility] [address] [id number] [place] [address]- 3860 October, [facility] [place] [facility] [address] [id number] [place] [address]- 4[address] October, [facility] [place] [facility] [address] [id number] [place] [address] 6[address] October, [facility] [place] [facility] [address] [id number] [place] [address]- 3099 October, [facility] [place] [facility] [address] [id number] [place] [address]73 Sep, [facility] [place] [facility] [address] [id number] [place] [address]- 6994 Sep, [facility] [place] [facility] [address] [id number] [place] [address]- 9475 Sep, [facility] [place] [facility] [address] [id number] [place] [address]- 38[address] Sep, [facility] [place] [facility] [address] [id number] [place] [address]- 3427 Sep, [facility] [place] [facility] [address] [id number] [place] [address]- 2501 Sep, [facility] [place] [facility] [address] [id number] [place] [address] 2701 Sep, [facility] [place] [facility] [address] [id number] [place] [address]- 4629 Sep, [facility] [place] [facility] [address] [id number] [place] [address]- 0897 Sep, [facility] [place] [facility] [address] [id number] [place] [address]- 3034 Sep, [facility] [place] [facility] [address] [id number] [place] [address]- 6324 Sep, [facility] [place] [facility] [address] [id number] [place] [address]- 7429 Sep, [facility] [address] [id number] [place] [address]- 2426 Sep, [facility] [place] [facility] [address] [id number] [place] [address]- 9567 Sep, [facility] [address] [id number] [place] [address]- [address]143 Sep, [facility] [place] [facility] [address] [id number] [place] [address]- 2707 Sep, [facility] [address] [id number] [place] [address]- 4142 Sep, [facility] [place] [facility] [address] [id number] [place] [address]- 9304 Sep, [facility] [place] [facility] [address] [id number] [place] [address]- 9[address] Sep, [facility] [address] [id number] [place] [address]- 6749 Aug, [facility] [place] [facility] [address] [id number] [place] [address]- 6[address] Aug, [facility] [address] [id number] [place] [address]- 3063 Aug, [facility] [place] [facility] [address] [id number] [place] [address]- 3951 Aug, [facility] [place] [facility] [address] [id number] [place] [address]- 3601 Jun, [facility] [place] [facility] [address] [id number] [place] [address]- 0593 Jun, [facility] [place] [facility] [address] [id number] [place] [address]- 3214 Mar, [facility] [place] [facility] [address] [id number] [place] [address]- 6[address] Mar, [facility] [address] [id number], [place] [address] 17 Nov, 2012 [facility] [id number], [place] [address] Sep, [facility] [address] [id number], [place] [address] Jun, [facility] [id number], [place] [address] Jun, [facility] [id number], [place] [address] Apr, [facility] [id number], [place] [address] Apr, [facility] [id number], [place] [address] 67[address] Apr, [facility] [id number], [place] [address] Mar, [facility] [address] [id number], [place] [address] Feb, IMMUNIZATIONS No Known Immunizations SOCIAL HISTORY Never Assessed REASON FOR VISIT Lab (walk-in) PLAN OF CARE VITAL SIGNS MEDICATIONS Unknown Medications RESULTS No Results PROCEDURES Procedure Date Ordered Result Body Site LAB NOT BILLED BY [facility] Feb 22, 2018 ARIELA RODRIGUEZ* Feb 22, 2018 INSTRUCTIONS MEDICATIONS ADMINISTERED No Known Medications [...] History [facility] unit 03/2016 Hospitalization History [place] x 30 days
--- OUTSIDE RECORDS SUMMARY | 2018-08-13 18:20 | XMS REPORT ---
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 Role Phone ADELA VILLAFUERTE Unavailable PROBLEMS Type Condition ICD9-CM Code BRL04-YA Code Onset Dates Condition Status SNOMED Code Problem Other chronic pain G89.29 Active 11002399 Problem Bulging of cervical intervertebral disc M50.20 Active 953028182 Problem Vaginal burning N94.9 Active 107268274 Problem Type 2 diabetes mellitus with hyperglycemia E11.65 Active 21287979 Problem Type 2 diabetes mellitus without complications E11.9 Active 095639735 Problem Gastroesophageal reflux disease, esophagitis presence not specified K21.9 Active 483250164 Problem Hand eczema L30.9 Active 995832180 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 285038018 Problem Type 2 diabetes mellitus without complication, without long-term current use of insulin E11.9 Active 032723533 Problem Hypothyroidism E03.9 Active 71913788 Problem Bulge of cervical disc without myelopathy M50.20 Active 861715558 Problem Cervical dysplasia N87.9 Active 16919386 Problem Prediabetes R73.09 Active 1674295 Problem Mild intermittent asthma, uncomplicated J45.20 Active 799736956 Problem Lumbar facet arthropathy M46.96 Active 389559255 Problem Generalized anxiety disorder F41.1 Active 56906153 Problem Hypertriglyceridemia E78.1 Active 999864405 Problem Schizoaffective disorder, bipolar type F25.0 Active 11510411 ALLERGIES No Information ENCOUNTERS Encounter Location Date Diagnosis [facility] [address] [facility] [id number] [address] Feb, [facility] [address] 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 [place] [address] [address] Feb, Type 2 diabetes mellitus without complication, without long- term current use of insulin E11.9 ; Hypertriglyceridemia E78.1 and Gastroesophageal reflux disease, esophagitis presence not specified K21.9 [place] [address] [address] Feb, [place] [address] [place] [id number] [place] [address] 13154- 2142 Jan, [place] [address] [place] [id number] [place] [address] 81827- 1761 Jan, Type 2 diabetes mellitus without complication, without long- term current use of insulin E11.9 [place] [address] [address] 4510 Dec, [place] [address] [place] [id number] [place] [address] 85122- 4781 Dec, [place] [address] [place] [id number] [place] [address] 75489- 7108 Dec, Type 2 diabetes mellitus without complications E11.9 ; 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 and BMI 40.0-44.9, adult Z68.41 [place] [address] [address] 4967 Dec, Type 2 diabetes mellitus without complication, without long- term current use of insulin E11.9 [place] [address] [address] 3239 Dec, [place] [address] [address] 1854 Dec, Type 2 diabetes mellitus without complication, without long- term current use of insulin E11.9 [place] [address] [address] 9541 Dec, Type 2 diabetes mellitus without complication, without long- term current use of insulin E11.9 ; Gastroesophageal reflux disease, esophagitis presence not specified K21.9 and BMI 40.0-44.9, adult Z68.41 [facility] [address] [place] [address] 08029- 6122 Dec, [facility] [address] [id number] [place] [address] [id number] October, Dental examination Z01.20 [place] [address] 81451- 2073 Sep, [facility] [address] 93105- 1142 Sep, Hypertriglyceridemia E78.1 [place] [address] 58181- 4446 Sep, Hypothyroidism E03.9 ; Prediabetes R73.09 ; Mild intermittent asthma, uncomplicated J45.20 ; Bulge of cervical disc without myelopathy M50.20 ; Other chronic pain G89.29 ; Hand eczema L30.9 ; Right anterior knee pain M25.561 ; Hypertriglyceridemia E78.1 and BMI 40.0-44.9, adult Z68.41 [place] [address] [place] [id number] [place] [address] 06886- 6112 Sep, [facility] [address] [id number] [place] [address] 92489- 7923 Sep, [place] [address] [id number] [place] [address] 52030- 8946 Jul, [place] [address] 98889- 5056 May, Acute non-recurrent maxillary sinusitis J01.00 [facility] [address] [place] [id number] [place] [address] 87990 -5494 Mar, Other viral agents as the cause of diseases classified elsewhere B97.89 and Acute upper respiratory infection, unspecified J06.9 [place] [address] 76763- 8929 Mar, [facility] [address] [place] [id number] [place] [address] 01589- 4621 Mar, Neck pain M54.2 [place] [address] 12363- 1733 27 Feb, 2017 Bulge of cervical disc without myelopathy M50.20 [place] [address] 92776- 9623 Feb, Neck pain M54.2 [place] [address] 33314- 0522 11 Feb, 2017 [place] [address] 30735- 7486 07 Feb, 2017 Bulge of cervical disc without myelopathy M50.20 ; Hypertriglyceridemia E78.1 ; Hand eczema L30.9 and Hypothyroidism E03.9 [place] [address] 22748- 6568 Jan, [facility] [address] [id number] October, 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 dental examination Z01.20 [place] [address] 91405- 8183 Sep, Generalized abdominal pain R10.84 [place] [address] 05199- 1657 Sep, Schizoaffective disorder, bipolar type F25.0 and Generalized anxiety disorder F41.1 [facility] [address] 63280 -7517 Sep, [facility] [address] 79101 -6668 Sep, Vaginal burning N94.9 and Vaginal mitzi B37.3 [facility] [address] 71383 -6339 Sep, Gastroenteritis K52.9 [facility] [address] [place] [id number] [place] [address] 88099 -5987 18 Sep, 2016 Thrush B37.0 [facility] [address] 16298 -1302 15 Sep, 2016 Pharyngitis due to other organism J02.[address] 66621- 1355 Sep, [facility] [address] 93196 -6911 Aug, Cervicalgia M54.[address] 97833- 1025 09 Aug, 2016 Hypothyroidism E03.9 ; Dry skin L85.3 ; Plantar fasciitis, bilateral M72.2 and Other chronic pain G89.29 [facility] [address] 61874 -1840 Aug, Abrasion T14.8 [facility] [address] [id number] Aug, Dental examination Z01.20 [facility] [place] [id number] [place] [address] 59917 -3152 Aug, Excessive cerumen in right ear canal H61.21 ; Impacted cerumen of both ears 380.4 and Bronchitis J40 [facility] [place] [id number] [place] [address] 75025 -4475 Jul, Bilateral impacted cerumen H61.23 and Acute non-recurrent frontal sinusitis J01.[address] 98700- 5969 May, Schizoaffective disorder, bipolar type F25.0 and Generalized anxiety disorder F41.[address] 17345- 0446 May, [place] [id number] [place] [address]- 9464 May, Cervicalgia M54.2 and Hypertriglyceridemia E78.1 [facility] [address] [address] [id number] [place] [address] 04248- 1566 May, [facility] [address] [id number] [place] [address] 45558- 4103 May, STD exposure Z20.2 and Well woman exam Z01.419 [facility] [address] [place] [id number] [place] [address] 59778- 5370 May, [facility] [address] [id number] [place] [address] 75860- 2684 Mar, [facility] [address] [place] [id number] [place] [address] 24243- 7082 Dec, Pain in left knee M25.562 [facility] [address] [id number] [place] [address] 12468- 4789 Dec, [facility] [address] [id number] [place] [address] 24687- 5226 Nov, [facility] [address] [id number] [place] [address] 61393- 5602 October, [facility] [address] [place] [id number] [place] [address] 11923- 7165 Aug, [facility] [address] [id number] [place] [address] 92929- 9434 Jul, [facility] [address] [id number] [place] [address] 08483- 254 Jul, [facility] [address] [id number] [place] [address] 12211- 8570 Jul, Plantar fasciitis M72.2 and 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 [facility] [address] [place] [id number] [place] [address] 35499- 4613 Jul, [facility] [address] [id number] [place] [address] 95315- 8258 Jun, Plantar fasciitis M72.2 and Physical exam Z00.00 [facility] [address] [place] [id number] [place] [address] 86206- 4023 Jun, [facility] [address] [place] [id number] [place] [address] 58289- 7742 Jun, [facility] [address] [place] [id number] [place] [address] 54400- 8898 Jun, [facility] [address] [place] [id number] [place] [address] 55190- 2885 May, [facility] [address] [place] [id number] [place] [address] 87688- 5045 May, Hypertriglyceridemia E78.1 [facility] [address] [place] [id number] [place] [address] 35076- 0735 May, Hypothyroidism E03.9 ; Prediabetes R73.09 and Hypertriglyceridemia E78.1 [facility] [address] [place] [id number] [place] [address] 61126- 8072 May, [facility] [address] [place] [id number] [place] [address] 69736- 8291 May, [facility] [address] [place] [id number] [place] [address] 87159- 1462 May, Hypothyroidism E03.9 ; Prediabetes R73.09 and Hypertriglyceridemia E78.1 [facility] [address] [place] [address] 95659- 6941 Apr, Schizoaffective disorder, bipolar type F25.0 [facility] [address] [place] [id number] [place] [address] 08518- 8179 Mar, [facility] [address] [place] [id number] [place] [address] 90315- 9704 Mar, [facility] [address] [place] [id number] [place] [address] 12492- 1046 Mar, [facility] [id number] [place] [address] 31051- 3945 30 Feb, 2015 [facility] [address] [place] [id number] [place] [address] 70078- 7559 24 Feb, 2015 [facility] [address] [place] [id number] [place] [address] 97315- 8601 16 Feb, 2015 [facility] [address] [place] [id number] [place] [address] 47706- 8696 15 Feb, 2015 Screen for STD (sexually transmitted disease) V74.5 ; Counseling on other sexually transmitted diseases V65.45 ; Back pain 724.5 ; Contact with or exposure to venereal diseases V01.6 and Pelvic pain in female 625.9 [facility] [address] [place] [id number] [place] [address] 96632- 1078 15 Feb, 2015 Schizoaffective disorder, unspecified 295.70 and Anxiety state, unspecified 300.00 [facility] [address] [place] [id number] [place] [address] 45081- 4768 14 Feb, 2015 [facility] [address] [place] [id number] [place] [address] 74710- 4863 10 Feb, 2015 [facility] [address] [place] [id number] [place] [address] 88099- 3257 03 Feb, 2015 Impacted cerumen of both ears 380.4 and Mild intermittent asthma 493.90 [facility] [address] [place] [id number] [place] [address] 59521- 4690 Feb, [facility] [address] [place] [id number] [place] [address] 73549- 0506 Jan, [facility] [address] [place] [id number] [place] [address] 57594- 2467 Jan, [facility] [address] [place] [id number] [place] [address] 68433- 8887 Jan, [facility] [address] [place] [address]- 5892 Jan, [facility] [address] [facility] [id number] [address]- 4209 Jan, [facility] [place] [facility] [address] [facility] [id number], [place] [address]- 8672 Jan, [facility] [address] [facility] [id number], [place] [address]- 6151 Jan, [facility] [place] [facility] [address] [facility] [id number] [address]- 2193 Jan, [facility] [address] [facility] [id number] [place] [address] 45375- 1798 Jan, [facility] [place] [facility] [address] [place] [id number] [address]- 5944 Jan, [facility] [id number] [place] [address] 50709- 2734 Jan, [facility] [place] [facility] [address] [facility] [id number], [place] [address]- 5146 Dec, Schizoaffective disorder, unspecified 295.70 [facility] [address], [place] [address]- 1294 Dec, [facility] [place] [facility] [address], [place] [address]- 3486 Dec, [facility] [place] [facility] [address], [place] [address]- 7966 Dec, [facility] [place] [facility] [address] 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.42 and Anxiety state, unspecified 300.00 [facility] [address] [place] [address] 99418033- 2718 Dec, [facility] [address] [place] [id number] [place] [address] 12628- 9331 Nov, High risk medication use V58.69 [facility] [address] [id number] [place] [address] 32943- 4529 Nov, [place] [address] [place] [id number] [place] [address] 75226- 7920 Nov, [facility] [address] [id number] [place] [address] 22383- 5317 Nov, High risk medication use V58.69 [place] [address] [place] [id number] [place] [address] 40780- 2365 Nov, [facility] [address] [place] [id number] [place] [address] 06696- 1443 Nov, [place] [address] [place] [id number] [place] [address] 40698- 9732 Nov, [facility] [address] [place] [id number] [place] [address] 84977- 9489 Nov, Hypothyroidism 244.9 ; Hypertriglyceridemia 272.1 and Prediabetes 790.29 [facility] [address] [place] [address] 66096- 4850 Nov, [place] [address] [place] [id number] [place] [address] 25280- 9358 Nov, [facility] [address] [place] [id number] [place] [address] 25860- 3969 Nov, Bulge of cervical disc without myelopathy 722.0 ; Lumbar facet arthropathy 721.3 ; Family history of stroke V17.1 ; Hyperthyroidism 242.90 and 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 long-term current use of medication V58.69 [facility] [address] 1786 Nov, [facility] [address] 5030 October, [facility] [address] 3770 October, [facility] [address] [id number] [place] [address] 682628- 4908 October, [facility] [address] [address]- 2922 October, [facility] [address] [place] [address] 149235- 1296 October, [facility] [address] [address]- 3207 October, [facility] [address], [place] [address]- 0387 October, Schizoaffective disorder, unspecified 295.70 and Persistent disorder of initiating 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.42 [facility] [address] [address]- 6831 October, Schizoaffective disorder, unspecified 295.70 [facility] [address], [place] [address]- 6720 October, [facility] [address]- 6051 October, [facility] [address] [address]- 1672 October, [facility] [address] 5208 Sep, Lumbago of lumbar region with sciatica 724.2 and Neck pain 723.1 [facility] [address] [address]- 7134 14 Sep, 2014 [facility] [place] [facility] [address] [id number] [place] [address]- 2148 13 Sep, 2014 [facility] [place] [facility] [address] [id number] [place] [address]- 8649 26 Aug, 2014 [facility] [place] [facility] [address] [id number] [place] [address]- 4926 Aug, [facility] [place] [facility] [address] [id number] [place] [address]- 5585 Aug, [facility] [place] [facility] [address] [id number] [place] [address]- 0018 Aug, [facility] [place] [facility] [address] [id number] [place] [address]- 6283 24 Aug, 2014 [facility] [place] [facility] [address] [id number] [place] [address]- 3704 24 Aug, 2014 [facility] [place] [facility] [address] [id number] [place] [address]- 5156 Aug, [facility] [place] [facility] [address] [id number] [place] [address]- 4543 20 Aug, 2014 [facility] [place] [facility] [address] [id number] [place] [address]- 6383 19 Aug, 2014 [facility] [place] [facility] [address] [id number] [place] [address]- 5945 19 Aug, 2014 [facility] [place] [facility] [address] [id number] [place] [address]- 0855 18 Aug, 2014 [facility] [place] [facility] [address] [id number] [place] [address]- 3270 18 Aug, 2014 [facility] [place] [facility] [address] [id number] [place] [address]- 0014 18 Aug, 2014 [facility] [place] [facility] [address] [id number] [place] [address]- 4010 18 Aug, 2014 [facility] [place] [facility] [address] [id number] [place] [address]- 5249 16 Aug, 2014 [facility] [place] [facility] [address] [id number] [place] [address]- 0486 Aug, 2014 [facility] [place] [facility] [address] [id number] [place] [address]- 4450 Aug, 2014 [facility] [place] [facility] [address] [id number] [place] [address]- 8351 Aug, 2014 [facility] [place] [facility] [address] [id number] [place] [address]- 5891 Aug, 2014 [facility] [place] [facility] [address] [id number] [place] [address]- 9372 Aug, 2014 [facility] [place] [facility] [address] [id number] [place] [address]- 0329 Aug, 2014 [facility] [place] [facility] [address] [id number] [place] [address]- 4249 Aug, 2014 [facility] [place] [facility] [address] [id number] [place] [address]- 5847 05 Aug, 2014 [facility] [place] [facility] [address] [id number] [place] [address]- 9331 Aug, [facility] [place] [facility] [address] [id number] [place] [address]- 0259 Aug, [facility] [place] [facility] [address] [id number] [place] [address]- 3607 Aug, 2014 [facility] [place] [facility] [address] [id number] [place] [address]- 4051 Aug, [facility] [place] [facility] [address] [id number] [place] [address]- 0601 Jul, [facility] [place] [facility] [address] [id number] [place] [address]- 1967 Jul, [facility] [place] [facility] [address] [id number] [place] [address]- 8860 Jul, [facility] [place] [facility] [address] [id number] [place] [address]- 5430 Jul, [facility] [place] [facility] [address] [id number] [place] [address]- 8616 Jul, [facility] [place] [facility] [address] [facility] [id number] [place] [address]- 2575 Jul, [facility] [place] [facility] [address] [id number] [place] [address]- 1945 Jul, 2014 [facility] [place] [facility] [address] [id number] [place] [address] Jul, [facility] [place] [facility] [address] [facility] [id number] [place] [address] Jul, [facility] [place] [facility] [address] [facility] [id number] [place] [address] Jul, [facility] [place] [facility] [address] [facility] [id number] [place] [address] Jun, [facility] [place] [facility] [address] [facility] [id number] [place] [address] Jun, [facility] [place] [facility] [address] [facility] [id number] [place] [address] Jun, [facility] [place] [facility] [address] [facility] [id number] [place] [address] Jun, [facility] [place] [facility] [address] [facility] [id number] [address] Jun, [facility] [place] [facility] [address] [facility] [id number] [place] [address] Jun, [facility] [place] [facility] [address] [facility] [id number] [place] [address] Jun, [facility] [place] [facility] [address] [facility] [id number] [place] [address] May, [facility] [place] [facility] [address] [id number] [place] [address] May, [facility] [place] [facility] [address] [id number] [place] [address] May, [facility] [place] [facility] [address] [id number] [id number] [address] May, [facility] [place] [facility] [address] [id number] [place] [address] May, [facility] [place] [facility] [address] [id number] [place] [address] May, [facility] [place] [facility] [address] [id number] [place] [address] May, [facility] [place] [facility] [address] [id number] [place] [address] May, [facility] [place] [facility] [address] [id number] [place] [address] May, [facility] [place] [facility] [address] [id number] [place] [address] May, [facility] [place] [facility] [address] [id number] [place] [address] Apr, [facility] [place] [facility] [address] [id number] [place] [address] Apr, [facility] [place] [facility] [address] [id number] [place] [address] Apr, [facility] [place] [facility] [address] [id number] [place] [address] Apr, [facility] [place] [facility] [address] [id number] [place] [address] Apr, [facility] [place] [facility] [address] [id number] [place] [address] Apr, [facility] [place] [facility] [address] [id number] [place] [address] Apr, [facility] [place] [facility] [address] [id number] [place] [address] Apr, [facility] [facility] [address] [id number] [place] [address] Apr, [facility] [place] [facility] [address] [id number] [place] [address] Mar, [facility] [place] [facility] [address] [id number] [place] [address] Mar, [facility] [place] [facility] [address] [id number] [place] [address] Mar, [facility] [place] [facility] [address] [id number] [place] [address] Mar, [facility] [place] [facility] [address] [id number] [place] [address] Mar, [facility] [place] [facility] [address] [id number] [place] [address] Mar, [facility] [place] [facility] [address] [id number] [place] [address] Mar, [facility] [place] [facility] [address] [id number] [place] [address] Mar, [facility] [address] [id number] [address] Mar, [facility] [place] [address] [id number] [address] Mar, [facility] [place] [facility] [address] [id number] [place] [address] Feb, [facility] [place] [facility] [address] [id number] [place] [address] Feb, [facility] [place] [facility] [address] [id number] [place] [address] 19 Feb, 2014 [facility] [place] [facility] [address] [id number] [place] [address] Feb, [facility] [place] [address] [id number] [place] [address] Feb, [facility] [place] [address] [id number] [place] [address] Jan, [facility] [place] [facility] [address] [id number] [place] [address] Jan, [facility] [place] [facility] [address] [id number] [place] [address] Jan, [facility] [address] [id number] [place] [address] Jan, [facility] [address] [id number] [place] [address] Jan, [facility] [address] [id number] [place] [address] Jan, [facility] [address] [id number] [place] [address] Jan, [facility] [address] [id number] [place] [address] Jan, [facility] [place] [address] [id number] [place] [address] Jan, [facility] [address] [id number] [place] [address]99 Dec, [facility] [place] [facility] [address] [id number] [place] [address] Dec, [facility] [address] [id number] [place] [address]- [address] Dec, [facility] [address] [id number] [place] [address] Dec, [facility] [place] [address] [id number] [place] [address] Dec, [facility] [place] [address] [id number] [place] [address] Dec, [facility] [address] [id number] [place] [address]- [address]28 Dec, [facility] [place] [address] [id number] [place] [address] 2865 Dec, [facility] [address] [id number] [place] [address] Nov, [facility] [address] [id number] [place] [address] Nov, [facility] [place] [address] [id number] [place] [address]39 Nov, [facility] [address] [id number] [place] [address] Nov, [facility] [address] [id number] [place] [address]- [address] Nov, [facility] [place] [facility] [address] [id number] [place] [address] Nov, [facility] [address] [id number] [place] [address]- [address] Nov, [facility] [address] [id number] [place] [address] 2896 Nov, [facility] [address] [id number] [place] [address]269 Nov, [facility] [address] [id number] [place] [address] Nov, [facility] [address] [id number] [place] [address]- [address] Nov, [facility] [address] [id number] [place] [address] 8969 Nov, [facility] [address] [id number] [place] [address]- [address]284 October, [facility] [address] [id number] [place] [address]- [address] October, [facility] [address] [id number] [place] [address]- [address] October, [facility] [address] [id number] [place] [address]- 78[address] October, [facility] [address] [id number] [place] [address]- 6[address] October, [facility] [address] [id number] [place] [address]- [address] Sep, [facility] [address] [id number] [place] [address]- 45[address] Sep, [facility] [address] [id number] [place] [address]- 3435 Sep, [facility] [address] [id number] [place] [address]- [address] Sep, [facility] [address] [id number] [place] [address]- 4[address] Sep, [facility] [address] [id number] [place] [address]- [address] Sep, [facility] [address] [id number] [place] [address]- [address] Sep, [facility] [address] [id number] [place] [address]- [address] Sep, [facility] [address] [id number] [place] [address]- 57[address] Sep, [facility] [address] [id number] [place] [address]- 20[address] Sep, [facility] [address] [id number] [place] [address]- [address] Sep, [facility] [address] [id number] [place] [address]- 73[address] Sep, [facility] [address] [id number] [place] [address]- 0054 Sep, [facility] [address] [id number] [place] [address]- 3257 Sep, [facility] [address] [id number] [place] [address]- 7982 Sep, [facility] [address] [id number] [place] [address]- 3180 Sep, [facility] [address] [id number] [place] [address]- 7343 Sep, [facility] [address] [id number] [place] [address]- 4296 Sep, [facility] [address] [id number] [place] [address]- 0621 Sep, [facility] [address] [id number] [place] [address]- 2999 Aug, [facility] [address] [id number] [place] [address]- 0066 Aug, [facility] [address] [id number] [place] [address]- [address]902 Aug, [facility] [address] [id number] [place] [address]- 5308 Aug, [facility] [address] [id number] [place] [address]- 3221 Jun, [facility] [address] [id number] [place] [address]- 7264 Jun, [facility] [address] [id number] [place] [address]- 2349 Mar, [facility] [address] [id number] [place] [address]- 9775 Mar, [facility] [address] [id number] [address] 17 Nov, 2012 [facility] [id number], [place] [address] Sep, [facility] [id number], [place] [address] Jun, [facility] [id number], [place] [address] Jun, [facility] [id number], [place] [address] Apr, [facility] [id number] [place] [address] Apr, [facility] [id number], [place] [address] Apr, [facility] [id number], [place] [address] Mar, [facility] [address] [id number] [id number] Feb, IMMUNIZATIONS No Known Immunizations SOCIAL HISTORY Never Assessed REASON FOR VISIT DM ed PLAN OF CARE VITAL SIGNS MEDICATIONS Unknown [...]
--- OUTSIDE RECORDS SUMMARY | 2018-08-13 18:21 | XMS REPORT ---
Author Author CHRISTO [facility] Address [address] [place] [address] Care Team Providers Care Relay Shop Tester Name Role Phone ADELA VILLAFUERTE Unavailable PROBLEMS Type Condition ICD9-CM Code CXC70-QO Code Onset Dates Condition Status SNOMED Code Problem Other chronic pain G89.29 Active 59127488 Problem Bulging of cervical intervertebral disc M50.20 Active 874866693 Problem Vaginal burning N94.9 Active 046035523 Problem Type 2 diabetes mellitus with hyperglycemia E11.65 Active 56007246 Problem Type 2 diabetes mellitus without complications E11.9 Active 854919157 Problem Gastroesophageal reflux disease, esophagitis presence not specified K21.9 Active 598306502 Problem Hand eczema L30.9 Active 714119401 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 Active 790781357 Problem Type 2 diabetes mellitus without complication, without long-term current use of insulin E11.9 Active 905565771 Problem Hypothyroidism E03.9 Active 18570218 Problem Bulge of cervical disc without myelopathy M50.20 Active 120433659 Problem Cervical dysplasia N87.9 Active 74306303 Problem Prediabetes R73.09 Active 3756087 Problem Mild intermittent asthma, uncomplicated J45.20 Active 728323442 Problem Lumbar facet arthropathy M46.96 Active 120514992 Problem Generalized anxiety disorder F41.1 Active 89858096 Problem Hypertriglyceridemia E78.1 Active 576104007 Problem Schizoaffective disorder, bipolar type F25.0 Active [id number] ALLERGIES No Information ENCOUNTERS Encounter Location Date Diagnosis [facility] [address] [facility] [id number] [address] Feb, [facility] [address] [facility] [id number], [place] [address] Feb, Type 2 diabetes mellitus with hyperglycemia E11.65 and 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 [place] [address], [place] [address] Feb, Type 2 diabetes mellitus without complication, without long- term current use of insulin E11.9 ; Hypertriglyceridemia E78.1 and Gastroesophageal reflux disease, esophagitis presence not specified K21.9 [place] [address], [place] [address] Feb, [place] [address] [place] [id number] [place] [address] 12405- 2894 Jan, [place] [address] [place] [id number] [place] [address] 03021- 7882 Jan, Type 2 diabetes mellitus without complication, without long- term current use of insulin E11.9 [place] [address], [place] [address] 2658 Dec, [place] [address] [place] [id number] [place] [address] 08513- 6509 Dec, [place] [address] [place] [id number] [place] [address] 01477- 6058 Dec, Type 2 diabetes mellitus without complications E11.9 ; 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9 ; Gastroesophageal reflux disease, esophagitis presence not specified K21.9 and BMI 40.0-44.9, adult Z68.41 [facility] [id number] [place] [address] 03874- 0333 Dec, [facility] [address] [id number] [place] [address] [id number] October, Dental examination Z01.20 [place] [address] 81444- 8836 Sep, [facility] [address] [address]26- 5100 Sep, Hypertriglyceridemia E78.1 [place] [address] 73846- 9509 Sep, Hypothyroidism E03.9 ; Prediabetes R73.09 ; Mild intermittent asthma, uncomplicated J45.20 ; Bulge of cervical disc without myelopathy M50.20 ; Other chronic pain G89.29 ; Hand eczema L30.9 ; Right anterior knee pain M25.561 ; Hypertriglyceridemia E78.1 and BMI 40.0-44.9, adult Z68.41 [place] [address] [place] [id number] [place] [address] 08842- 2446 Sep, [facility] [address] [place] [address] [id number] [place] [address] 86657- 0251 Sep, [place] [address] [place] [id number] [place] [address] 32459- 1692 Jul, [place] [address] 09195- 9003 May, Acute non-recurrent maxillary sinusitis J01.00 [facility] W[facility] IN [facility] [address] [place] [id number] [place] [address] 67144 -9809 Mar, Other viral agents as the cause of diseases classified elsewhere B97.89 and Acute upper respiratory infection, unspecified J06.9 [place] [address] 12482- 0051 Mar, [facility] [address] [id number] [place] [address] 88185- 2082 Mar, Neck pain M54.2 [place] [address] 24944- 2638 27 Feb, 2017 Bulge of cervical disc without myelopathy M50.20 [place] [address] 68201- 0685 Feb, Neck pain M54.2 [place] [address] 67459- 0017 11 Feb, 2017 [place] [address] 46112- 9622 07 Feb, 2017 Bulge of cervical disc without myelopathy M50.20 ; Hypertriglyceridemia E78.1 ; Hand eczema L30.9 and Hypothyroidism E03.9 [place] [address] 35907- 5933 Jan, [facility] [address] [id number] October, 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 dental examination Z01.20 [place] [address] 41404- 2096 Sep, Generalized abdominal pain R10.84 [place] [address] 07018- 9481 Sep, Schizoaffective disorder, bipolar type F25.0 and Generalized anxiety disorder F41.1 [facility] [address] 24595 -8097 Sep, [facility] [address] 23597 -4670 Sep, Vaginal burning N94.9 and Vaginal mitzi B37.3 [facility] [address] 27239 -4371 Sep, Gastroenteritis K52.9 [facility] [address] [place] [id number] [place] [address] 40090 -4046 18 Sep, 2016 Thrush B37.0 [facility] WALK IN [address] [address]87 -8366 15 Sep, 2016 Pharyngitis due to other organism J02.[address] [address]10- 7512 Sep, [facility] IN [address] 29183 -1658 Aug, Cervicalgia M54.[address] 62774- 0905 09 Aug, 2016 Hypothyroidism E03.9 ; Dry skin L85.3 ; Plantar fasciitis, bilateral M72.2 and Other chronic pain G89.29 [facility] WALK IN [address] [address]79 Aug, Abrasion T14.8 [facility] [address] [id number] Aug, Dental examination Z01.20 [facility] [place] [id number] [place] [address] 87710 -6249 Aug, Excessive cerumen in right ear canal H61.21 ; Impacted cerumen of both ears 380.4 and Bronchitis J40 [facility] [place] [id number] [place] [address] 46990 -4112 Jul, Bilateral impacted cerumen H61.23 and Acute non-recurrent frontal sinusitis J01.[address] 02917- 2692 May, Schizoaffective disorder, bipolar type F25.0 and Generalized anxiety disorder F41.[address] 68660- 7517 May, [place] [address] [place] [address]- 4321 May, Cervicalgia M54.2 and Hypertriglyceridemia E78.1 [facility] [address] [place] [id number] [place] [address] 49986- 7866 May, [facility] [address] [place] [id number] [place] [address] 91887- 2643 May, STD exposure Z20.2 and Well woman exam Z01.419 [facility] [address] [place] [id number] [place] [address] 04255- 3119 May, [facility] [address] [place] [id number] [place] [address] 32319- 6557 Mar, [facility] [address] [place] [address] [id number] [place] [address] 06649- 6572 Dec, Pain in left knee M25.562 [facility] [address] [place] [address] [id number] [place] [address] 32660- 0531 Dec, [facility] [address] [place] [address] [id number] [place] [address] 64143- 0172 Nov, [facility] [address] [place] [address] [id number] [place] [address] 60365- 1227 October, [facility] [address] [place] [id number] [place] [address] 88311- 1194 Aug, [facility] [address] [place] [id number] [place] [address] 10913- 3286 Jul, [facility] [address] [place] [id number] [place] [address] 94757- 2549 Jul, [facility] [address] [place] [id number] [place] [address] 33981- 4303 Jul, Plantar fasciitis M72.2 and 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 [facility] [address] [place] [id number] [place] [address] 70893- 3765 Jul, [facility] [address] [place] [id number] [place] [address] 72005- 7356 Jun, Plantar fasciitis M72.2 and Physical exam Z00.00 [facility] [address] [place] [id number] [place] [address] 32357- 0998 Jun, [facility] [address] [place] [id number] [place] [address] 02001- 3603 Jun, [facility] [address] [place] [id number] [place] [address] 26373- 8267 Jun, [facility] [address] [place] [id number] [place] [address] 48743- 6836 May, [facility] [address] [place] [id number] [place] [address] 25816- 1340 May, Hypertriglyceridemia E78.1 [facility] [address] [place] [id number] [place] [address] 60793- 8523 May, Hypothyroidism E03.9 ; Prediabetes R73.09 and Hypertriglyceridemia E78.1 [facility] [address] [place] [id number] [place] [address] 63254- 9225 May, [facility] [address] [place] [id number] [place] [address] 14369- 9934 May, [facility] [address] [place] [id number] [place] [address] 11716- 0808 May, Hypothyroidism E03.9 ; Prediabetes R73.09 and Hypertriglyceridemia E78.1 [facility] [address] [place] [address] 65484- 2233 Apr, Schizoaffective disorder, bipolar type F25.0 [facility] [address] [place] [id number] [place] [address] 85317- 4266 Mar, [facility] [address] [place] [id number] [place] [address] 94946- 3591 Mar, [facility] [address] [place] [id number] [place] [address] 60506- 2532 Mar, [facility] [id number] [place] [address] 18050- 0618 30 Feb, 2015 [facility] [address] [place] [id number] [place] [address] 23162- 3048 24 Feb, 2015 [facility] [address] [place] [id number] [place] [address] 73534- 2197 16 Feb, 2015 [facility] [address] [place] [id number] [place] [address] 99040- 7957 15 Feb, 2015 Screen for STD (sexually transmitted disease) V74.5 ; Counseling on other sexually transmitted diseases V65.45 ; Back pain 724.5 ; Contact with or exposure to venereal diseases V01.6 and Pelvic pain in female 625.9 [facility] [address] [place] [id number] [place] [address] 52064- 3758 15 Feb, 2015 Schizoaffective disorder, unspecified 295.70 and Anxiety state, unspecified 300.00 [facility] [address] [place] [id number] [place] [address] 06705- 6954 14 Feb, 2015 [facility] [address] [place] [id number] [place] [address] 61961- 5739 10 Feb, 2015 [facility] [address] [place] [id number] [place] [address] 19352- 4111 03 Feb, 2015 Impacted cerumen of both ears 380.4 and Mild intermittent asthma 493.90 [facility] [address] [place] [id number] [place] [address] 91980- 6938 Feb, [facility] [address] [place] [id number] [place] [address] 99276- 1096 Jan, [facility] [address] [place] [id number] [place] [address] 78861- 6927 Jan, [facility] [address] [place] [id number] [place] [address] 72972- 1645 Jan, [facility] [address] [place] [address]- 0345 Jan, [facility] [address] [facility] [id number] [address]- 9463 Jan, [facility] [place] [facility] [address] [facility] [id number], [place] [address]- 3193 Jan, [facility] [address] [facility] [id number], [place] [address]- 7664 Jan, [facility] [place] [facility] [address] [facility] [id number], [place] [address]- 8718 Jan, [facility] [address] [facility] [id number] [place] [address] 88547- 2414 Jan, [facility] [place] [facility] [address] [place] [id number], [place] [address]- 5163 Jan, [facility] [address] [place] [address] 86298- 0084 Jan, [facility] [place] [facility] [address] [facility] [id number], [place] [address]- 0043 Dec, Schizoaffective disorder, unspecified 295.70 [facility] [address], [place] [address]- 4954 Dec, [facility] [place] [facility] [address], [place] [address]- 5639 Dec, [facility] [place] [facility] [address], [place] [address]- 9197 Dec, [facility] [place] [facility] [address] [facility] [id number], [place] [address]- 5244 Dec, [facility] [place] [facility] [address], [place] [address]- 4610 Dec, [facility] [address] [id number] [id number] Dec, Dental examination V72.2 [facility] [address] [place] [address] 65499- 2604 Dec, Schizoaffective disorder, unspecified 295.70 ; Persistent disorder of initiating 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.42 and Anxiety state, unspecified 300.00 [facility] [address] [place] [address] 52785169- 6273 Dec, [facility] [address] [place] [id number] [place] [address] 29823- 7118 Nov, High risk medication use V58.69 [facility] [address] [place] [id number] [place] [address] 81028- 7223 Nov, [place] [address] [place] [id number] [place] [address] 02123- 8862 Nov, [facility] [address] [place] [id number] [place] [address] 51260- 3718 Nov, High risk medication use V58.69 [place] [address] [place] [id number] [place] [address] 29234- 9836 Nov, [facility] [address] [place] [id number] [place] [address] 50215- 7665 Nov, [place] [address] [place] [id number] [place] [address] 76415- 8649 Nov, [facility] [address] [place] [id number] [place] [address] 14860- 1355 Nov, Hypothyroidism 244.9 ; Hypertriglyceridemia 272.1 and Prediabetes 790.29 [facility] [address] [place] [address] 29461- 3199 Nov, [place] [address] [place] [id number] [place] [address] 60825- 7822 Nov, [facility] [address] [place] [id number] [place] [address] 08313- 1436 Nov, Bulge of cervical disc without myelopathy 722.0 ; Lumbar facet arthropathy 721.3 ; Family history of stroke V17.1 ; Hyperthyroidism 242.90 and 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 long-term current use of medication V58.69 [facility] [address]- 2361 Nov, [facility] [address] 2467 October, [facility] [address]- 3436 October, [facility] [address] [place] [id number] [place] [address] 065953- 4542 October, [facility] [address], [place] [address]- 5651 October, [facility] [id number] [place] [address] 575665- 9789 October, [facility] [address], [place] [address]- 6553 October, [facility] [address], [place] [address]- 6269 October, Schizoaffective disorder, unspecified 295.70 and Persistent disorder of initiating 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.42 [facility] [address], [place] [address]- 5413 October, Schizoaffective disorder, unspecified 295.70 [facility] [address], [place] [address]- 9742 October, [facility] [address]- 5513 October, [facility] [address], [place] [address]- 0052 October, [facility] [address] 3631 Sep, Lumbago of lumbar region with sciatica 724.2 and Neck pain 723.1 [facility] [address], [place] [address]- 8717 14 Sep, 2014 [facility] [place] [facility] [address] [id number] [place] [address]- 2658 13 Sep, 2014 [facility] [place] [facility] [address] [id number] [place] [address]- 0084 26 Aug, 2014 [facility] [place] [facility] [address] [id number] [place] [address]- 9486 Aug, [facility] [place] [facility] [address] [id number] [place] [address]- 6922 Aug, [facility] [place] [facility] [address] [id number] [place] [address]- 7078 Aug, [facility] [place] [facility] [address] [id number] [place] [address]- 0850 24 Aug, 2014 [facility] [place] [facility] [address] [id number] [place] [address]- 9220 24 Aug, 2014 [facility] [place] [facility] [address] [id number] [place] [address]- 0109 Aug, [facility] [place] [facility] [address] [id number] [place] [address]- 5127 20 Aug, 2014 [facility] [place] [facility] [address] [id number] [place] [address]- 4981 19 Aug, 2014 [facility] [place] [facility] [address] [id number] [place] [address]- 0063 19 Aug, 2014 [facility] [place] [facility] [address] [id number] [place] [address]- 9904 18 Aug, 2014 [facility] [place] [facility] [address] [id number] [place] [address]- 0515 18 Aug, 2014 [facility] [place] [facility] [address] [id number] [place] [address]- 6193 18 Aug, 2014 [facility] [place] [facility] [address] [id number] [place] [address]- 5730 18 Aug, 2014 [facility] [place] [facility] [address] [id number] [place] [address]- 0114 16 Aug, 2014 [facility] [place] [facility] [address] [id number] [place] [address]- 6112 Aug, 2014 [facility] [place] [facility] [address] [id number] [place] [address]- 7094 Aug, 2014 [facility] [place] [facility] [address] [id number] [place] [address]- 5361 Aug, 2014 [facility] [place] [facility] [address] [id number] [place] [address]- 6463 Aug, 2014 [facility] [place] [facility] [address] [id number] [place] [address]- 3268 Aug, 2014 [facility] [place] [facility] [address] [id number] [place] [address]- 2860 Aug, 2014 [facility] [place] [facility] [address] [id number] [place] [address]- 9136 Aug, 2014 [facility] [place] [facility] [address] [id number] [place] [address]- 0861 05 Aug, 2014 [facility] [place] [facility] [address] [id number] [place] [address]- 3536 Aug, [facility] [place] [facility] [address] [id number] [place] [address]- 4523 Aug, [facility] [place] [facility] [address] [id number] [place] [address] Aug, 2014 [facility] [place] [facility] [address] [id number] [place] [address] Aug, [facility] [place] [facility] [address] [id number] [place] [address] Jul, [facility] [place] [facility] [address] [id number] [place] [address] Jul, [facility] [place] [facility] [address] [id number] [place] [address] Jul, [facility] [place] [facility] [address] [id number] [place] [address] Jul, [facility] [place] [facility] [address] [id number] [place] [address] Jul, [facility] [place] [facility] [address] [facility] [id number] [place] [address] Jul, [facility] [place] [facility] [address] [id number] [place] [address] Jul, 2014 [facility] [place] [facility] [address] [id number] [place] [address] Jul, [facility] [place] [facility] [address] [facility] [id number] [place] [address] Jul, [facility] [place] [facility] [address] [facility] [id number] [place] [address] Jul, [facility] [place] [facility] [address] [facility] [id number] [place] [address] Jun, [facility] [place] [facility] [address] [facility] [id number] [place] [address] Jun, [facility] [place] [facility] [address] [facility] [id number] [place] [address] Jun, [facility] [place] [facility] [address] [facility] [id number] [place] [address] Jun, [facility] [place] [facility] [address] [facility] [id number], [place] [address] Jun, [facility] [place] [facility] [address] [facility] [id number] [place] [address] Jun, [facility] [place] [facility] [address] [facility] [id number] [place] [address] Jun, [facility] [place] [facility] [address] [facility] [id number] [place] [address] May, [facility] [place] [facility] [address] [id number] [place] [address] May, [facility] [place] [facility] [address] [id number] [place] [address] May, [facility] [place] [facility] [address] [id number] [place] [address] May, [facility] [place] [facility] [address] [id number] [place] [address] May, [facility] [place] [facility] [address] [id number] [place] [address] May, [facility] [place] [facility] [address] [id number] [place] [address] May, [facility] [place] [facility] [address] [id number] [place] [address] May, [facility] [place] [facility] [address] [id number] [place] [address] May, [facility] [place] [facility] [address] [id number] [place] [address] May, [facility] [place] [facility] [address] [id number] [place] [address] Apr, [facility] [place] [facility] [address] [id number] [place] [address] Apr, [facility] [place] [facility] [address] [id number] [place] [address] Apr, [facility] [place] [facility] [address] [id number] [place] [address] Apr, [facility] [place] [facility] [address] [id number] [place] [address] Apr, [facility] [place] [facility] [address] [id number] [place] [address] Apr, [facility] [place] [facility] [address] [id number] [place] [address] Apr, [facility] [place] [facility] [address] [id number] [place] [address] Apr, [facility] [place] [facility] [address] [id number] [place] [address] Apr, [facility] [place] [facility] [address] [id number] [place] [address] Mar, [facility] [place] [facility] [address] [id number] [place] [address] Mar, [facility] [place] [facility] [address] [id number] [place] [address] Mar, [facility] [place] [facility] [address] [id number] [place] [address] Mar, [facility] [place] [facility] [address] [id number] [place] [address] Mar, [facility] [place] [facility] [address] [id number] [place] [address] Mar, [facility] [place] [facility] [address] [id number] [place] [address] Mar, [facility] [place] [facility] [address] [id number] [place] [address] Mar, [facility] [place] [facility] [address] [id number], [place] [address] Mar, [facility] [place] [facility] [address] [id number], [place] [address] Mar, [facility] [place] [facility] [address] [id number] [place] [address] Feb, [facility] [place] [facility] [address] [id number] [place] [address] Feb, [facility] [place] [facility] [address] [id number] [place] [address] 19 Feb, 2014 [facility] [place] [facility] [address] [id number] [place] [address] Feb, [facility] [place] [facility] [address] [id number] [place] [address]165 Feb, [facility] [place] [facility] [address] [id number] [place] [address] Jan, [facility] [place] [facility] [address] [id number] [place] [address] Jan, [facility] [place] [facility] [address] [id number] [place] [address]80 Jan, [facility] [place] [facility] [address] [id number] [place] [address]99 Jan, [facility] [place] [facility] [address] [id number] [place] [address] Jan, [facility] [place] [facility] [address] [id number] [place] [address]26 Jan, [facility] [place] [facility] [address] [id number] [place] [address] Jan, [facility] [place] [facility] [address] [id number] [place] [address] Jan, [facility] [place] [facility] [address] [id number] [place] [address] Jan, [facility] [place] [facility] [address] [id number] [place] [address]076 Dec, [facility] [place] [facility] [address] [id number] [place] [address]270 Dec, [facility] [place] [facility] [address] [id number] [place] [address] 8669 Dec, [facility] [place] [facility] [address] [id number] [place] [address] 8579 Dec, [facility] [place] [facility] [address] [id number] [place] [address] Dec, [facility] [place] [facility] [address] [id number] [place] [address] Dec, [facility] [place] [facility] [address] [id number] [place] [address]40 Dec, [facility] [place] [facility] [address] [id number] [place] [address] Dec, [facility] [place] [facility] [address] [id number] [place] [address] Nov, [facility] [place] [facility] [address] [id number] [place] [address] Nov, [facility] [place] [facility] [address] [id number] [place] [address]- [address]78 Nov, [facility] [place] [facility] [address] [id number] [place] [address] Nov, [facility] [place] [facility] [address] [id number] [place] [address]33 Nov, [facility] [place] [facility] [address] [id number] [place] [address] 8068 Nov, [facility] [place] [facility] [address] [id number] [place] [address]10 Nov, [facility] [place] [facility] [address] [id number] [place] [address]- [address] Nov, [facility] [place] [facility] [address] [id number] [place] [address] Nov, [facility] [place] [facility] [address] [id number] [place] [address] Nov, [facility] [place] [facility] [address] [id number] [place] [address]12 Nov, [facility] [place] [facility] [address] [id number] [place] [address]113 Nov, [facility] [place] [facility] [address] [id number] [place] [address] October, [facility] [place] [facility] [address] [id number] [place] [address] October, [facility] [place] [facility] [address] [id number] [place] [address]294 October, [facility] [place] [facility] [address] [id number] [place] [address] 1517 October, [facility] [place] [facility] [address] [id number] [place] [address]- 1212 October, [facility] [place] [facility] [address] [id number] [place] [address]366 Sep, [facility] [place] [facility] [address] [id number] [place] [address] 5960 Sep, [facility] [place] [facility] [address] [id number] [place] [address]- 6865 Sep, [facility] [place] [facility] [address] [id number] [place] [address]- 0010 Sep, [facility] [place] [facility] [address] [id number] [place] [address] 4857 Sep, [facility] [place] [facility] [address] [id number] [place] [address]- 0727 Sep, [facility] [place] [facility] [address] [id number] [place] [address]- 2038 Sep, [facility] [place] [facility] [address] [id number] [place] [address]- 0962 Sep, [facility] [place] [facility] [address] [id number] [place] [address]- 3530 Sep, [facility] [place] [facility] [address] [id number] [place] [address]- 6276 Sep, [facility] [place] [facility] [address] [id number] [place] [address] 9990 Sep, [facility] [place] [facility] [address] [id number] [place] [address]- 7682 Sep, [facility] [address] [id number] [place] [address] 4266 Sep, [facility] [place] [facility] [address] [id number] [place] [address]- 8933 Sep, [facility] [address] [id number] [place] [address]- 2453 Sep, [facility] [place] [facility] [address] [id number] [place] [address]- 0680 Sep, [facility] [address] [id number] [place] [address]- 0440 Sep, [facility] [place] [facility] [address] [id number] [place] [address]- 1752 Sep, [facility] [place] [facility] [address] [id number] [place] [address]- 3310 Sep, [facility] [address] [id number] [place] [address]- 4928 Aug, [facility] [place] [facility] [address] [id number] [place] [address]- 7260 Aug, [facility] [address] [id number] [place] [address]- 4947 Aug, [facility] [place] [facility] [address] [id number] [place] [address]- 7630 Aug, [facility] [place] [facility] [address] [id number] [place] [address]- 9558 Jun, [facility] [place] [facility] [address] [id number] [place] [address]- 3358 Jun, [facility] [place] [facility] [address] [id number] [place] [address]- 6476 Mar, [facility] [place] [facility] [address] [id number] [place] [address] Mar, [facility] [address] [id number] [address] 17 Nov, 2012 [facility] [id number], [place] [address] Sep, [facility] [id number], [place] [address] Jun, [facility] [id number], [place] [address] Jun, [facility] [id number], [place] [address] Apr, [facility] [id number] [place] [address]67 Apr, [facility] [id number], [place] [address] Apr, [facility] [id number], [place] [address] Mar, [facility] [address] [id number] [address] Feb, IMMUNIZATIONS No Known Immunizations SOCIAL HISTORY Never Assessed REASON FOR VISIT DM ed scheduled PLAN OF CARE VITAL SIGNS MEDICATIONS Unknown [...]
--- OUTSIDE RECORDS SUMMARY | 2018-08-13 18:22 | XMS REPORT ---
Author Author CHRISTO ADELA [facility] Address [address] [place] [address] Care Team Providers Care Tag Marker Name Role Phone ADELA VILLAFUERTE Unavailable PROBLEMS Type Condition ICD9-CM Code [id number] Code Onset Dates Condition Status SNOMED Code Problem Other chronic pain G89.29 Active 75064817 Problem Bulging of cervical intervertebral disc M50.20 Active 665807837 Problem Vaginal burning N94.9 Active 751576450 Problem Type 2 diabetes mellitus with hyperglycemia E11.65 Active 00205142 Problem Type 2 diabetes mellitus without complications E11.9 Active 456655143 Problem Gastroesophageal reflux disease, esophagitis presence not specified K21.9 Active 532054347 Problem Hand eczema L30.9 Active 676726629 Problem 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 Active 015366240 Problem Type 2 diabetes mellitus without complication, without long-term current use of insulin E11.9 Active 441579425 Problem Hypothyroidism E03.9 Active 05304364 Problem Bulge of cervical disc without myelopathy M50.20 Active 519478780 Problem Cervical dysplasia N87.9 Active 90328841 Problem Prediabetes R73.09 Active 4785895 Problem Mild intermittent asthma, uncomplicated J45.20 Active 937251938 Problem Lumbar facet arthropathy M46.96 Active 910623047 Problem Generalized anxiety disorder F41.1 Active 12850544 Problem Hypertriglyceridemia E78.1 Active 770278355 Problem Schizoaffective disorder, bipolar type F25.0 Active 43454060 ALLERGIES No Information ENCOUNTERS Encounter Location Date Diagnosis [facility] [address] [facility] [id number] [address] Feb, [facility] [address] [facility] [id number] [address] Feb, Type 2 diabetes mellitus with hyperglycemia E11.65 and 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 [place] [address] [address] Feb, Type 2 diabetes mellitus without complication, without long- term current use of insulin E11.9 ; Hypertriglyceridemia E78.1 and Gastroesophageal reflux disease, esophagitis presence not specified K21.9 [place] [address] [address] Feb, [place] [address] [place] [id number] [place] [address] 22845- 5491 Jan, [place] [address] [place] [id number] [place] [address] 77004- 8406 Jan, Type 2 diabetes mellitus without complication, without long- term current use of insulin E11.9 [place] [address] [address] 1537 Dec, [place] [address] [place] [id number] [place] [address] 47759- 4914 Dec, [place] [address] [place] [id number] [place] [address] 38188- 0700 Dec, Type 2 diabetes mellitus without complications E11.9 ; 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 and BMI 40.0-44.9, adult Z68.41 [place] [address] [address] Dec, Type 2 diabetes mellitus without complication, without long- term current use of insulin E11.9 [place] [address] [address] 1225 Dec, [place] [address] [address] 3098 Dec, Type 2 diabetes mellitus without complication, without long- term current use of insulin E11.9 [place] [address] [address] 7999 Dec, Type 2 diabetes mellitus without complication, without long- term current use of insulin E11.9 ; Gastroesophageal reflux disease, esophagitis presence not specified K21.9 and BMI 40.0-44.9, adult Z68.41 [facility] [id number] [place] [address] 13582- 8743 Dec, [facility] [address] [place] [id number] [place] [address] [id number] October, Dental examination Z01.20 [place] [address] 95184- 2793 Sep, [facility] [address] 34746- 3957 Sep, Hypertriglyceridemia E78.1 [place] [address] 04479- 8588 Sep, Hypothyroidism E03.9 ; Prediabetes R73.09 ; Mild intermittent asthma, uncomplicated J45.20 ; Bulge of cervical disc without myelopathy M50.20 ; Other chronic pain G89.29 ; Hand eczema L30.9 ; Right anterior knee pain M25.561 ; Hypertriglyceridemia E78.1 and BMI 40.0-44.9, adult Z68.41 [place] [address] [place] [id number] [place] [address] 34368- 3495 Sep, [facility] [address] [place] [id number] [place] [address] 11495- 2443 Sep, [place] [address] [place] [id number] [place] [address] 85590- 5236 Jul, [place] [address] 96049- 8270 May, Acute non-recurrent maxillary sinusitis J01.00 [facility] [address] [place] [id number] [place] [address] 25036 -3917 Mar, Other viral agents as the cause of diseases classified elsewhere B97.89 and Acute upper respiratory infection, unspecified J06.9 [place] [address] 62789- 2422 Mar, [facility] [address] [place] [id number] [place] [address] 77436- 5272 Mar, Neck pain M54.2 [place] [address] 29654- 4779 27 Feb, 2017 Bulge of cervical disc without myelopathy M50.20 [place] [address] 99674- 1529 Feb, Neck pain M54.2 [place] [address] 60330- 5697 11 Feb, 2017 [place] [address] 89697- 8304 07 Feb, 2017 Bulge of cervical disc without myelopathy M50.20 ; Hypertriglyceridemia E78.1 ; Hand eczema L30.9 and Hypothyroidism E03.9 [place] [address] 02723- 1847 Jan, [facility] [address] [id number] October, 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 dental examination Z01.20 [place] [address] 10550- 9727 Sep, Generalized abdominal pain R10.84 [place] [address] 73766- 9065 Sep, Schizoaffective disorder, bipolar type F25.0 and Generalized anxiety disorder F41.1 [facility] [address] 78528 -7621 Sep, [facility] [address] 71608 -3520 Sep, Vaginal burning N94.9 and Vaginal mitzi B37.3 [facility] [address] 35489 -7981 Sep, Gastroenteritis K52.9 [facility] [address] [place] [id number] [place] [address] 44390 -6651 18 Sep, 2016 Thrush B37.0 [facility] [address] 17075 -0569 15 Sep, 2016 Pharyngitis due to other organism J02.[address] 36414- 2235 Sep, [facility] [address] 57421 -1779 Aug, Cervicalgia M54.[address] 77078- 8152 09 Aug, 2016 Hypothyroidism E03.9 ; Dry skin L85.3 ; Plantar fasciitis, bilateral M72.2 and Other chronic pain G89.29 [facility] [address] 95947 -9496 Aug, Abrasion T14.8 [facility] [address] [id number] Aug, Dental examination Z01.20 [facility] [place] [id number] [place] [address] 19792 -7838 Aug, Excessive cerumen in right ear canal H61.21 ; Impacted cerumen of both ears 380.4 and Bronchitis J40 [facility] [place] [id number] [place] [address] 96664 -1102 Jul, Bilateral impacted cerumen H61.23 and Acute non-recurrent frontal sinusitis J01.[address] 19502- 7255 May, Schizoaffective disorder, bipolar type F25.0 and Generalized anxiety disorder F41.[address] 36598- 7567 May, [place] [id number] [place] [address]- 5900 May, Cervicalgia M54.2 and Hypertriglyceridemia E78.1 [facility] [address] [place] [id number] [place] [address] 91621- 2256 May, [facility] [address] [place] [id number] [place] [address] 65243- 0031 May, STD exposure Z20.2 and Well woman exam Z01.419 [facility] [address] [place] [id number] [place] [address] 85234- 0187 May, [facility] [address] [place] [id number] [place] [address] 95344- 9074 Mar, [facility] [address] [place] [id number] [place] [address] 91530- 9745 Dec, Pain in left knee M25.562 [facility] [address] [place] [id number] [place] [address] 56666- 5016 Dec, [facility] [address] [place] [id number] [place] [address] 51160- 0554 Nov, [facility] [address] [place] [id number] [place] [address] 76853- 4659 October, [facility] [address] [place] [id number] [place] [address] 79604- 7781 Aug, [facility] [address] [place] [id number] [place] [address] 08551- 5468 Jul, [facility] [address] [place] [id number] [place] [address] 33750- 2549 Jul, [facility] [address] [place] [id number] [place] [address] 96054- 2451 Jul, Plantar fasciitis M72.2 and 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 [facility] [address] [place] [id number] [place] [address] 47052- 1566 Jul, [facility] [address] [place] [id number] [place] [address] 16864- 0140 Jun, Plantar fasciitis M72.2 and Physical exam Z00.00 [facility] [address] [place] [id number] [place] [address] 43391- 1497 Jun, [facility] [address] [place] [id number] [place] [address] 91316- 9923 Jun, [facility] [address] [place] [id number] [place] [address] 32281- 0490 Jun, [facility] [address] [place] [id number] [place] [address] 81691- 0930 May, [facility] [address] [place] [id number] [place] [address] 00392- 8151 May, Hypertriglyceridemia E78.1 [facility] [address] [place] [id number] [place] [address] 87302- 0528 May, Hypothyroidism E03.9 ; Prediabetes R73.09 and Hypertriglyceridemia E78.1 [facility] [address] [place] [id number] [place] [address] 44549- 6524 May, [facility] [address] [place] [id number] [place] [address] 09285- 9081 May, [facility] [address] [place] [id number] [place] [address] 83610- 9573 May, Hypothyroidism E03.9 ; Prediabetes R73.09 and Hypertriglyceridemia E78.1 [facility] [id number] [place] [address] 57000- 9435 Apr, Schizoaffective disorder, bipolar type F25.0 [facility] [address] [place] [id number] [place] [address] 45881- 8548 Mar, [facility] [address] [place] [id number] [place] [address] 99048- 4524 Mar, [facility] [address] [place] [id number] [place] [address] 15689- 8411 Mar, [facility] [id number] [place] [address] 46868- 5181 30 Feb, 2015 [facility] [address] [place] [id number] [place] [address] 83732- 7189 24 Feb, 2015 [facility] [address] [place] [id number] [place] [address] 89779- 9343 16 Feb, 2015 [facility] [address] [place] [id number] [place] [address] 56009- 1801 15 Feb, 2015 Screen for STD (sexually transmitted disease) V74.5 ; Counseling on other sexually transmitted diseases V65.45 ; Back pain 724.5 ; Contact with or exposure to venereal diseases V01.6 and Pelvic pain in female 625.9 [facility] [address] [place] [id number] [place] [address] 87543- 8496 15 Feb, 2015 Schizoaffective disorder, unspecified 295.70 and Anxiety state, unspecified 300.00 [facility] [address] [place] [id number] [place] [address] 06782- 3667 14 Feb, 2015 [facility] [address] [place] [id number] [place] [address] 62699- 4614 10 Feb, 2015 [facility] [address] [place] [id number] [place] [address] 11285- 1381 03 Feb, 2015 Impacted cerumen of both ears 380.4 and Mild intermittent asthma 493.90 [facility] [address] [place] [id number] [place] [address] 00497- 4134 Feb, [facility] [address] [place] [id number] [place] [address] 77976- 7868 Jan, [facility] [address] [place] [id number] [place] [address] 12795- 3526 Jan, [facility] [address] [place] [id number] [place] [address] 92738- 1943 Jan, [facility] [address] [place] [address]- 8371 Jan, [facility] [address] [facility] [id number] [address]- 8962 Jan, [facility] [place] [facility] [address] [facility] [id number] [address]- 5513 Jan, [facility] [address] [facility] [id number] [address]- 1233 Jan, [facility] [place] [facility] [address] [facility] [id number] [address]- 4144 Jan, [facility] [address] [facility] [id number] [place] [address] 73764- 0653 Jan, [facility] [place] [facility] [address] [place] [id number] [address]- 7133 Jan, [facility] [id number] [place] [address] 16021- 9276 Jan, [facility] [place] [facility] [address] [facility] [id number] [address]- 2213 Dec, Schizoaffective disorder, unspecified 295.70 [facility] [address] [address]- 5682 Dec, [facility] [place] [facility] [address] [address]- 2565 Dec, [facility] [place] [facility] [address] [address]- 6860 Dec, [facility] [place] [facility] [address] [facility] [id number] [address]- 1471 Dec, [facility] [place] [facility] [address] [address]- 9271 Dec, [facility] [address] [id number] [id number] Dec, Dental examination V72.2 [facility] [id number] [place] [address] 28304- 3120 Dec, Schizoaffective disorder, unspecified 295.70 ; Persistent disorder of initiating 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.42 and Anxiety state, unspecified 300.00 [facility] [address] [place] [address] 67824713- 2482 Dec, [facility] [address] [place] [id number] [place] [address] 45780- 9301 Nov, High risk medication use V58.69 [facility] [address] [place] [id number] [place] [address] 28052- 3495 Nov, [place] [address] [place] [id number] [place] [address] 72240- 2878 Nov, [facility] [address] [place] [id number] [place] [address] 77344- 0445 Nov, High risk medication use V58.69 [place] [address] [place] [id number] [place] [address] 83067- 7077 Nov, [facility] [address] [place] [id number] [place] [address] 70399- 2147 Nov, [place] [address] [place] [id number] [place] [address] 94627- 4279 Nov, [facility] [address] [place] [id number] [place] [address] 02626- 1222 Nov, Hypothyroidism 244.9 ; Hypertriglyceridemia 272.1 and Prediabetes 790.29 [facility] [id number] [place] [address] 75914- 8128 Nov, [place] [address] [place] [id number] [place] [address] 96697- 9779 Nov, [facility] [address] [place] [id number] [place] [address] 31073- 2513 Nov, Bulge of cervical disc without myelopathy 722.0 ; Lumbar facet arthropathy 721.3 ; Family history of stroke V17.1 ; Hyperthyroidism 242.90 and 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 long-term current use of medication V58.69 [facility] [address]- 9867 Nov, [facility] [address] 9191 October, [facility] [address] [address]- 4350 October, [facility] [address] [place] [id number] [place] [address] 644361- 9540 October, [facility] [address] [address]- 1918 October, [facility] [id number] [place] [address] 060280- 3467 October, [facility] [address] [address]- 6010 October, [facility] [address] [address]- 5061 October, Schizoaffective disorder, unspecified 295.70 and Persistent disorder of initiating 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.42 [facility] [address] [address]- 4288 October, Schizoaffective disorder, unspecified 295.70 [facility] [address] [address]- 5761 October, [facility] [address] 2877 October, [facility] [address] [address]- 6863 October, [facility] [address] 9162 Sep, Lumbago of lumbar region with sciatica 724.2 and Neck pain 723.1 [facility] [address] [address]- 2268 14 Sep, 2014 [facility] [place] [facility] [address] [id number] [place] [address]- 1263 13 Sep, 2014 [facility] [place] [facility] [address] [id number] [place] [address]- 2440 26 Aug, 2014 [facility] [place] [facility] [address] [id number] [place] [address]- 4291 Aug, [facility] [place] [facility] [address] [id number] [place] [address]- 4464 Aug, [facility] [place] [facility] [address] [id number] [place] [address]- 3168 Aug, [facility] [place] [facility] [address] [id number] [place] [address]- 8606 24 Aug, 2014 [facility] [place] [facility] [address] [id number] [place] [address]- 5349 24 Aug, 2014 [facility] [place] [facility] [address] [id number] [place] [address]- 2918 Aug, [facility] [place] [facility] [address] [id number] [place] [address]- 1690 20 Aug, 2014 [facility] [place] [facility] [address] [id number] [place] [address]- 3390 19 Aug, 2014 [facility] [place] [facility] [address] [id number] [place] [address]- 9975 19 Aug, 2014 [facility] [place] [facility] [address] [id number] [place] [address]- 8078 18 Aug, 2014 [facility] [place] [facility] [address] [id number] [place] [address]- 5267 18 Aug, 2014 [facility] [place] [facility] [address] [id number] [place] [address]- 2450 18 Aug, 2014 [facility] [place] [facility] [address] [id number] [place] [address]- 4854 18 Aug, 2014 [facility] [place] [facility] [address] [id number] [place] [address]- 1467 16 Aug, 2014 [facility] [place] [facility] [address] [id number] [place] [address]- 6445 Aug, 2014 [facility] [place] [facility] [address] [id number] [place] [address]- 9456 Aug, 2014 [facility] [place] [facility] [address] [id number] [place] [address]- 0131 Aug, 2014 [facility] [place] [facility] [address] [id number] [place] [address]- 5749 Aug, 2014 [facility] [place] [facility] [address] [id number] [place] [address] Aug, 2014 [facility] [place] [facility] [address] [id number] [place] [address] Aug, 2014 [facility] [place] [facility] [address] [id number] [place] [address] Aug, 2014 [facility] [place] [facility] [address] [id number] [place] [address] 05 Aug, 2014 [facility] [place] [facility] [address] [id number] [place] [address] Aug, [facility] [place] [facility] [address] [id number] [place] [address] Aug, [facility] [place] [facility] [address] [id number] [place] [address] Aug, 2014 [facility] [place] [facility] [address] [id number] [place] [address] Aug, [facility] [place] [facility] [address] [id number] [place] [address] Jul, [facility] [place] [facility] [address] [id number] [place] [address] Jul, [facility] [place] [facility] [address] [id number] [place] [address] Jul, [facility] [place] [facility] [address] [id number] [place] [address] Jul, [facility] [place] [facility] [address] [id number] [place] [address] Jul, [facility] [place] [facility] [address] [facility] [id number] [place] [address] Jul, [facility] [place] [facility] [address] [id number] [place] [address] Jul, 2014 [facility] [place] [facility] [address] [id number] [place] [address] Jul, [facility] [place] [facility] [address] [facility] [id number] [place] [address] Jul, [facility] [place] [facility] [address] [facility] [id number] [place] [address] Jul, [facility] [place] [facility] [address] [facility] [id number] [place] [address] Jun, [facility] [place] [facility] [address] [facility] [id number] [place] [address] Jun, [facility] [place] [facility] [address] [facility] [id number] [place] [address] Jun, [facility] [place] [facility] [address] [facility] [id number] [place] [address] Jun, [facility] [place] [facility] [address] [facility] [id number] [address] Jun, [facility] [place] [facility] [address] [facility] [id number] [place] [address] Jun, [facility] [place] [facility] [address] [facility] [id number] [place] [address] Jun, [facility] [place] [facility] [address] [facility] [id number] [place] [address] May, [facility] [place] [facility] [address] [id number] [place] [address] May, [facility] [place] [facility] [address] [id number] [place] [address] [address] May, [facility] [place] [facility] [address] [id number] [place] [address] May, [facility] [place] [facility] [address] [id number] [place] [address] May, [facility] [place] [facility] [address] [id number] [place] [address] May, [facility] [place] [facility] [address] [id number] [place] [address] May, [facility] [place] [facility] [address] [id number] [place] [address] May, [facility] [place] [facility] [address] [id number] [place] [address] May, [facility] [place] [facility] [address] [id number] [place] [address] May, [facility] [place] [facility] [address] [id number] [place] [address] Apr, [facility] [place] [facility] [address] [id number] [place] [address] Apr, [facility] [place] [facility] [address] [id number] [place] [address] Apr, [facility] [facility] [address] [id number] [place] [address] Apr, [facility] [place] [facility] [address] [id number] [place] [address] Apr, [facility] [place] [facility] [address] [id number] [place] [address] Apr, [facility] [place] [facility] [address] [id number] [place] [address] Apr, [facility] [place] [facility] [address] [id number] [place] [address] Apr, [facility] [place] [facility] [address] [id number] [place] [address] Apr, [facility] [place] [facility] [address] [id number] [place] [address] Mar, [facility] [place] [facility] [address] [id number] [place] [address] Mar, [facility] [place] [facility] [address] [id number] [place] [address] Mar, [facility] [place] [facility] [address] [id number] [place] [address] Mar, [facility] [place] [facility] [address] [id number] [place] [address] Mar, [facility] [place] [facility] [address] [id number] [place] [address] Mar, [facility] [place] [facility] [address] [id number] [place] [address] Mar, [facility] [place] [facility] [address] [id number] [place] [address]66 Mar, [facility] [place] [facility] [address] [id number] [address] Mar, [facility] [facility] [address] [id number] [address] Mar, [facility] [place] [facility] [address] [id number] [place] [address]65 Feb, [facility] [place] [facility] [address] [id number] [place] [address] Feb, [facility] [place] [facility] [address] [id number] [place] [address] 19 Feb, 2014 [facility] [place] [facility] [address] [id number] [place] [address] Feb, [facility] [place] [facility] [address] [id number] [place] [address] Feb, [facility] [place] [facility] [address] [id number] [place] [address] Jan, [facility] [address] [id number] [place] [address]074 Jan, [facility] [address] [id number] [place] [address] Jan, [facility] [place] [facility] [address] [id number] [place] [address]99 Jan, [facility] [address] [id number] [place] [address] Jan, [facility] [address] [id number] [place] [address]- 6667 Jan, [facility] [place] [facility] [address] [id number] [place] [address] 47[address] Jan, [facility] [address] [id number] [place] [address]672 Jan, [facility] [address] [id number] [place] [address] Jan, [facility] [place] [facility] [address] [id number] [place] [address] 2669 Dec, [facility] [address] [id number] [place] [address] Dec, [facility] [address] [id number] [place] [address] 3512 Dec, [facility] [address] [id number] [place] [address] 9570 Dec, [facility] [address] [id number] [place] [address] 67[address] Dec, [facility] [address] [id number] [place] [address]- [address]24 Dec, [facility] [address] [id number] [place] [address] 3048 Dec, [facility] [address] [id number] [place] [address] 8583 Dec, [facility] [address] [id number] [place] [address] Nov, [facility] [address] [id number] [place] [address]83 Nov, [facility] [address] [id number] [place] [address] 6533 Nov, [facility] [address] [id number] [place] [address]245 Nov, [facility] [address] [id number] [place] [address]803 Nov, [facility] [address] [id number] [place] [address]- 6312 Nov, [facility] [address] [id number] [place] [address]- [address]388 Nov, [facility] [address] [id number] [place] [address]- [address]125 Nov, [facility] [address] [id number] [place] [address]- 8927 Nov, [facility] [address] [id number] [place] [address]- 2675 Nov, [facility] [address] [id number] [place] [address]- 6434 Nov, [facility] [address] [id number] [place] [address]- 6466 Nov, [facility] [address] [id number] [place] [address] 3043 October, [facility] [address] [id number] [place] [address]- 3555 October, [facility] [address] [id number] [place] [address]- 9365 October, [facility] [address] [id number] [place] [address]- 0415 October, [facility] [address] [id number] [place] [address]- 7031 October, [facility] [address] [id number] [place] [address] 1233 Sep, [facility] [address] [id number] [place] [address]- 6749 Sep, [facility] [address] [id number] [place] [address] 1630 Sep, [facility] [address] [id number] [place] [address]- 4621 Sep, [facility] [address] [id number] [place] [address]- 1352 Sep, [facility] [address] [id number] [place] [address]- 4961 Sep, [facility] [address] [id number] [place] [address]- 9055 Sep, [facility] [address] [id number] [place] [address] 5911 Sep, [facility] [address] [id number] [place] [address]- 6190 Sep, [facility] [address] [id number] [place] [address]- 0417 Sep, [facility] [address] [id number] [place] [address]- 0239 Sep, [facility] [address] [id number] [place] [address]- 2463 Sep, [facility] [address] [id number] [place] [address]- 8537 Sep, [facility] [address] [id number] [place] [address]- 4949 Sep, [facility] [address] [id number] [place] [address]- 7237 Sep, [facility] [address] [id number] [place] [address]- 5108 Sep, [facility] [address] [id number] [place] [address]- 2607 Sep, [facility] [address] [id number] [place] [address]- 7418 Sep, [facility] [address] [id number] [place] [address]- 8454 Sep, [facility] [address] [id number] [place] [address]- 5772 Aug, [facility] [address] [id number] [place] [address]- 7853 Aug, [facility] [address] [id number] [place] [address]- 8221 Aug, [facility] [address] [id number] [place] [address]- 5118 Aug, [facility] [address] [id number] [place] [address]- 4673 Jun, [facility] [address] [id number] [place] [address]- 4911 Jun, [facility] [address] [id number] [place] [address]- 1194 Mar, [facility] [address] [id number] [place] [address]- 4235 Mar, [facility] [address] [id number] [address] 17 Nov, 2012 [facility] [id number] [address] Sep, [facility] [id number] [address]858 Jun, [facility] [id number] [address]- 7950 Jun, [facility] [id number] [address]87 Apr, [facility] [id number] [address]- 2805 Apr, [facility] [id number] [address]- [address]275 Apr, [facility] [id number] [address]- 8807 Mar, [facility] [address] [id number] [id number] Feb, IMMUNIZATIONS No Known Immunizations SOCIAL HISTORY Never Assessed REASON FOR VISIT BS f/u attempt PLAN OF CARE VITAL SIGNS MEDICATIONS Unknown [...]
--- OUTSIDE RECORDS SUMMARY | 2018-08-13 18:22 | XMS REPORT ---
Author Author CHRISTO ADELA [facility] Address [address] [place] [address] Care Team Providers Care Internist Medical Doctor Md Name Role Phone ADELA VILLAFUERTE Unavailable PROBLEMS Type Condition ICD9-CM Code LHD80-QC Code Onset Dates Condition Status SNOMED Code Problem Other chronic pain G89.29 Active 22244248 Problem Bulging of cervical intervertebral disc M50.20 Active 441993930 Problem Vaginal burning N94.9 Active 024958812 Problem Type 2 diabetes mellitus with hyperglycemia E11.65 Active 96575466 Problem Type 2 diabetes mellitus without complications E11.9 Active 156718878 Problem Gastroesophageal reflux disease, esophagitis presence not specified K21.9 Active 630855975 Problem Hand eczema L30.9 Active 038403901 Problem 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 Active 671752916 Problem Type 2 diabetes mellitus without complication, without long-term current use of insulin E11.9 Active 217025211 Problem Hypothyroidism E03.9 Active 27672580 Problem Bulge of cervical disc without myelopathy M50.20 Active 327328742 Problem Cervical dysplasia N87.9 Active 57935128 Problem Prediabetes R73.09 Active 6926287 Problem Mild intermittent asthma, uncomplicated J45.20 Active 487545903 Problem Lumbar facet arthropathy M46.96 Active 692304273 Problem Generalized anxiety disorder F41.1 Active 79059484 Problem Hypertriglyceridemia E78.1 Active 868976548 Problem Schizoaffective disorder, bipolar type F25.0 Active 56998994 ALLERGIES No Information ENCOUNTERS Encounter Location Date Diagnosis [facility] [address] [facility] [id number] [address] Feb, [facility] [address] [facility] [id number] [address] 10 Feb, 2018 Type 2 diabetes mellitus with hyperglycemia E11.65 and 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 [place] [address] [address] Feb, Type 2 diabetes mellitus without complication, without long- term current use of insulin E11.9 ; Hypertriglyceridemia E78.1 and Gastroesophageal reflux disease, esophagitis presence not specified K21.9 [place] [address] [address] 4[address] Feb, [place] [address] [place] [id number] [place] [address] 21297- 4520 Jan, [place] [address] [place] [id number] [place] [address] 47638- 7047 Jan, Type 2 diabetes mellitus without complication, without long- term current use of insulin E11.9 [place] [address] [address] 8609 Dec, [place] [address] [place] [id number] [place] [address] 08972- 3204 Dec, [place] [address] [place] [id number] [place] [address] 52361- 0742 Dec, Type 2 diabetes mellitus without complications E11.9 ; 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 and BMI 40.0-44.9, adult Z68.41 [place] [address] [address] 0693 Dec, Type 2 diabetes mellitus without complication, without long- term current use of insulin E11.9 [place] [address] [address] 9024 Dec, [place] [address] [address]- 1286 Dec, Type 2 diabetes mellitus without complication, without long- term current use of insulin E11.9 [place] [address] [address]- 4235 Dec, Type 2 diabetes mellitus without complication, without long- term current use of insulin E11.9 ; Gastroesophageal reflux disease, esophagitis presence not specified K21.9 and BMI 40.0-44.9, adult Z68.41 [facility] [id number] [place] [address] 83975- 7009 Dec, [facility] [address] [place] [id number] [place] [address] [id number] October, Dental examination Z01.20 [place] [address] [address]15- 0010 Sep, [facility] [address] [address]239- 4557 Sep, Hypertriglyceridemia E78.1 [place] [address] 88748- 0715 Sep, Hypothyroidism E03.9 ; Prediabetes R73.09 ; Mild intermittent asthma, uncomplicated J45.20 ; Bulge of cervical disc without myelopathy M50.20 ; Other chronic pain G89.29 ; Hand eczema L30.9 ; Right anterior knee pain M25.561 ; Hypertriglyceridemia E78.1 and BMI 40.0-44.9, adult Z68.41 [place] [address] [place] [id number] [place] [address] 58423- 2495 Sep, [facility] [address] [place] [id number] [place] [address] 96104- 6744 Sep, [place] [address] [place] [id number] [place] [address] 03238- 1386 Jul, [place] [address] 94288- 0915 May, Acute non-recurrent maxillary sinusitis J01.00 [facility] [address] [place] [id number] [place] [address] 27061 -2152 Mar, Other viral agents as the cause of diseases classified elsewhere B97.89 and Acute upper respiratory infection, unspecified J06.9 [place] [address] 96456- 3204 Mar, [facility] [address] [place] [id number] [place] [address] 90846- 1942 Mar, Neck pain M54.2 [place] [address] 88018- 4740 27 Feb, 2017 Bulge of cervical disc without myelopathy M50.20 [place] [address] 43582- 1670 Feb, Neck pain M54.2 [place] [address] 31867- 3697 11 Feb, 2017 [place] [address] 42001- 5299 07 Feb, 2017 Bulge of cervical disc without myelopathy M50.20 ; Hypertriglyceridemia E78.1 ; Hand eczema L30.9 and Hypothyroidism E03.9 [place] [address] 37979- 5098 Jan, [facility] [address] [id number] October, 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 dental examination Z01.20 [place] [address] 21121- 5772 Sep, Generalized abdominal pain R10.84 [place] [address] 32047- 8692 Sep, Schizoaffective disorder, bipolar type F25.0 and Generalized anxiety disorder F41.1 [facility] [address] [address]54 -3744 Sep, [facility] [address] 59509 -3607 Sep, Vaginal burning N94.9 and Vaginal mitzi B37.3 [facility] [address] 02862 -8623 Sep, Gastroenteritis K52.9 [facility] [address] [place] [id number] [place] [address] 01895 -9138 18 Sep, 2016 Thrush B37.0 [facility] IN [address] [address] -[address]91 15 Sep, 2016 Pharyngitis due to other organism J02.[address] [address]- 0359 Sep, [facility] [address] [address] Aug, Cervicalgia M54.[address] 81546- 9915 09 Aug, 2016 Hypothyroidism E03.9 ; Dry skin L85.3 ; Plantar fasciitis, bilateral M72.2 and Other chronic pain G89.29 [facility] IN [address] [address] Aug, Abrasion T14.8 [facility] [address] [id number] Aug, Dental examination Z01.20 [facility] [place] [id number] [place] [address] 23159 -8535 Aug, Excessive cerumen in right ear canal H61.21 ; Impacted cerumen of both ears 380.4 and Bronchitis J40 [facility] [place] [id number] [place] [address] 04628 -1591 Jul, Bilateral impacted cerumen H61.23 and Acute non-recurrent frontal sinusitis J01.[address] 05790- 1746 May, Schizoaffective disorder, bipolar type F25.0 and Generalized anxiety disorder F41.[address] 19677- 4388 May, [place] [id number] [place] [address]- 1890 May, Cervicalgia M54.2 and Hypertriglyceridemia E78.1 [facility] [address] [place] [id number] [place] [address] 40724- 5246 May, [facility] [address] [place] [id number] [place] [address] 16007- 6160 May, STD exposure Z20.2 and Well woman exam Z01.419 [facility] [address] [place] [id number] [place] [address] 48298- 4910 May, [facility] [address] [place] [id number] [place] [address] 93476- 1855 Mar, [facility] [address] [place] [id number] [place] [address] 01488- 8886 Dec, Pain in left knee M25.562 [facility] [address] [place] [id number] [place] [address] 25193- 7597 Dec, [facility] [address] [place] [id number] [place] [address] 29235- 5850 Nov, [facility] [address] [place] [id number] [place] [address] 03518- 0136 October, [facility] [address] [place] [id number] [place] [address] 73223- 1293 Aug, [facility] [address] [place] [id number] [place] [address] 02186- 1223 Jul, [facility] [address] [place] [id number] [place] [address] 80759- 2544 Jul, [facility] [address] [place] [id number] [place] [address] 99836- 2050 Jul, Plantar fasciitis M72.2 and 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 [facility] [address] [place] [id number] [place] [address] 16832- 9852 Jul, [facility] [address] [place] [id number] [place] [address] 40209- 5090 Jun, Plantar fasciitis M72.2 and Physical exam Z00.00 [facility] [address] [place] [id number] [place] [address] 61341- 3026 Jun, [facility] [address] [place] [id number] [place] [address] 63775- 0111 Jun, [facility] [address] [place] [id number] [place] [address] 79656- 9264 Jun, [facility] [address] [place] [id number] [place] [address] 60669- 6798 May, [facility] [address] [place] [id number] [place] [address] 02315- 5725 May, Hypertriglyceridemia E78.1 [facility] [address] [place] [id number] [place] [address] 88183- 6302 May, Hypothyroidism E03.9 ; Prediabetes R73.09 and Hypertriglyceridemia E78.1 [facility] [address] [place] [id number] [place] [address] 62777- 5591 May, [facility] [address] [place] [id number] [place] [address] 37738- 9166 May, [facility] [address] [place] [id number] [place] [address] 88161- 3228 May, Hypothyroidism E03.9 ; Prediabetes R73.09 and Hypertriglyceridemia E78.1 [facility] [address] [place] [address] 51140- 1248 Apr, Schizoaffective disorder, bipolar type F25.0 [facility] [address] [place] [id number] [place] [address] 78750- 8099 Mar, [facility] [address] [place] [id number] [place] [address] 28500- 7717 Mar, [facility] [address] [place] [id number] [place] [address] 77024- 0330 Mar, [facility] [address] [place] [address] 70635- 3273 30 Feb, 2015 [facility] [address] [place] [id number] [place] [address] 85375- 1461 24 Feb, 2015 [facility] [address] [place] [id number] [place] [address] 33727- 0581 16 Feb, 2015 [facility] [address] [place] [id number] [place] [address] 45936- 5122 15 Feb, 2015 Screen for STD (sexually transmitted disease) V74.5 ; Counseling on other sexually transmitted diseases V65.45 ; Back pain 724.5 ; Contact with or exposure to venereal diseases V01.6 and Pelvic pain in female 625.9 [facility] [address] [place] [id number] [place] [address] 86479- 0915 15 Feb, 2015 Schizoaffective disorder, unspecified 295.70 and Anxiety state, unspecified 300.00 [facility] [address] [place] [id number] [place] [address] 86223- 3859 14 Feb, 2015 [facility] [address] [place] [id number] [place] [address] 22207- 7186 10 Feb, 2015 [facility] [address] [place] [id number] [place] [address] 99338- 7395 03 Feb, 2015 Impacted cerumen of both ears 380.4 and Mild intermittent asthma 493.90 [facility] [address] [place] [id number] [place] [address] 09122- 4343 Feb, [facility] [address] [place] [id number] [place] [address] 95991- 1139 Jan, [facility] [address] [place] [id number] [place] [address] 40332- 0709 Jan, [facility] [address] [place] [id number] [place] [address] 29064- 7378 Jan, [facility] [address] [place] [address]- 2245 Jan, [facility] [address] [facility] [id number] [address]- 6706 Jan, [facility] [place] [facility] [address] [facility] [id number] [address]- 0669 Jan, [facility] [address] [facility] [id number] [place] [address]- 3049 Jan, [facility] [place] [facility] [address] [facility] [id number] [place] [address]- 2123 Jan, [facility] [address] [facility] [id number] [place] [address] 32680- 9191 Jan, [facility] [place] [facility] [address] [place] [id number] [address]- 8570 Jan, [facility] [address] [place] [address] 07310- 2248 Jan, [facility] [place] [facility] [address] [facility] [id number] [place] [address]- 3424 Dec, Schizoaffective disorder, unspecified 295.70 [facility] [address] [address]- 8545 Dec, [facility] [place] [facility] [address] [address]- 6881 Dec, [facility] [place] [facility] [address] [address]- 1196 Dec, [facility] [place] [facility] [address] [facility] [id number] [place] [address]- 7353 Dec, [facility] [place] [facility] [address] [address]- 9363 Dec, [facility] [address] [id number] [place] [id number] Dec, Dental examination V72.2 [facility] [address] [place] [address] 27590- 2462 Dec, Schizoaffective disorder, unspecified 295.70 ; Persistent disorder of initiating 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.42 and Anxiety state, unspecified 300.00 [facility] [address] [place] [address] 59778994- 0794 Dec, [facility] [address] [place] [id number] [place] [address] 43712- 9082 Nov, High risk medication use V58.69 [facility] [address] [place] [id number] [place] [address] 81380- 8512 Nov, [place] [address] [place] [id number] [place] [address] 22021- 0093 Nov, [facility] [address] [place] [id number] [place] [address] 73190- 6346 Nov, High risk medication use V58.69 [place] [address] [place] [id number] [place] [address] 65992- 6713 Nov, [facility] [address] [place] [id number] [place] [address] 90860- 5600 Nov, [place] [address] [place] [id number] [place] [address] 33506- 1404 Nov, [facility] [address] [place] [id number] [place] [address] 72242- 2114 Nov, Hypothyroidism 244.9 ; Hypertriglyceridemia 272.1 and Prediabetes 790.29 [facility] [address] [place] [address] 55584- 9589 Nov, [place] [address] [place] [id number] [place] [address] 08523- 5642 Nov, [facility] [address] [place] [id number] [place] [address] 66670- 3688 Nov, Bulge of cervical disc without myelopathy 722.0 ; Lumbar facet arthropathy 721.3 ; Family history of stroke V17.1 ; Hyperthyroidism 242.90 and 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 long-term current use of medication V58.69 [facility] [address] 8306 Nov, [facility] [address] 9168 October, [facility] [address] [address] 8425 October, [facility] [address] [place] [id number] [place] [address] 187547- 8227 October, [facility] [address] [address]- 6134 October, [facility] [address] [place] [address] 097175- 0535 October, [facility] [address] [address]- 6676 October, [facility] [address] [address]- 7598 October, Schizoaffective disorder, unspecified 295.70 and Persistent disorder of initiating 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.42 [facility] [address] [address]- 6859 October, Schizoaffective disorder, unspecified 295.70 [facility] [address] [address]- 0621 October, [facility] [address] [address]- 0656 October, [facility] [address] [address]- 4151 October, [facility] [address]- 0324 Sep, Lumbago of lumbar region with sciatica 724.2 and Neck pain 723.1 [facility] [address] [address]- 4737 14 Sep, 2014 [facility] [place] [facility] [address] [id number] [place] [address]- 2550 13 Sep, 2014 [facility] [place] [facility] [address] [id number] [place] [address]- 2407 26 Aug, 2014 [facility] [place] [facility] [address] [id number] [place] [address]- 8163 Aug, [facility] [place] [facility] [address] [id number] [place] [address]- 3230 Aug, [facility] [place] [facility] [address] [id number] [place] [address]- 4813 Aug, [facility] [place] [facility] [address] [id number] [place] [address]- 1951 24 Aug, 2014 [facility] [place] [facility] [address] [id number] [place] [address]- 5386 24 Aug, 2014 [facility] [place] [facility] [address] [id number] [place] [address]- 0828 Aug, [facility] [place] [facility] [address] [id number] [place] [address]- 7096 20 Aug, 2014 [facility] [place] [facility] [address] [id number] [place] [address]- 2153 19 Aug, 2014 [facility] [place] [facility] [address] [id number] [place] [address]- 6070 19 Aug, 2014 [facility] [place] [facility] [address] [id number] [place] [address]- 0483 18 Aug, 2014 [facility] [place] [facility] [address] [id number] [place] [address]- 6726 18 Aug, 2014 [facility] [place] [facility] [address] [id number] [place] [address]- 2649 18 Aug, 2014 [facility] [place] [facility] [address] [id number] [place] [address]- 5300 18 Aug, 2014 [facility] [place] [facility] [address] [id number] [place] [address]- 6304 16 Aug, 2014 [facility] [place] [facility] [address] [id number] [place] [address]- 5804 Aug, 2014 [facility] [place] [facility] [address] [id number] [place] [address]- 9264 Aug, 2014 [facility] [place] [facility] [address] [id number] [place] [address]- 5615 Aug, 2014 [facility] [place] [facility] [address] [id number] [place] [address]- 2801 Aug, 2014 [facility] [place] [facility] [address] [id number] [place] [address]- 7143 Aug, 2014 [facility] [place] [facility] [address] [id number] [place] [address]- 2117 Aug, 2014 [facility] [place] [facility] [address] [id number] [place] [address]- 6163 Aug, 2014 [facility] [place] [facility] [address] [id number] [place] [address]- 1153 05 Aug, 2014 [facility] [place] [facility] [address] [id number] [place] [address]- 9792 Aug, [facility] [place] [facility] [address] [id number] [place] [address]- 3584 Aug, [facility] [place] [facility] [address] [id number] [place] [address]- 9219 Aug, 2014 [facility] [place] [facility] [address] [id number] [place] [address]- 3155 Aug, [facility] [place] [facility] [address] [id number] [place] [address] Jul, [facility] [place] [facility] [address] [id number] [place] [address] Jul, [facility] [place] [facility] [address] [id number] [place] [address] Jul, [facility] [place] [facility] [address] [id number] [place] [address] Jul, [facility] [place] [facility] [address] [id number] [place] [address] Jul, [facility] [place] [facility] [address] [facility] [id number] [place] [address] Jul, [facility] [place] [facility] [address] [id number] [place] [address] Jul, 2014 [facility] [place] [facility] [address] [id number] [place] [address] Jul, [facility] [place] [facility] [address] [facility] [id number] [place] [address] Jul, [facility] [place] [facility] [address] [facility] [id number] [place] [address] Jul, [facility] [place] [facility] [address] [facility] [id number] [place] [address] Jun, [facility] [place] [facility] [address] [facility] [id number] [place] [address] Jun, [facility] [place] [facility] [address] [facility] [id number] [place] [address]27 Jun, [facility] [place] [facility] [address] [facility] [id number] [place] [address] Jun, [facility] [place] [facility] [address] [facility] [id number] [address] Jun, [facility] [place] [facility] [address] [facility] [id number] [place] [address] Jun, [facility] [place] [facility] [address] [facility] [id number] [place] [address] Jun, [facility] [place] [facility] [address] [facility] [id number] [place] [address]77 May, [facility] [place] [facility] [address] [id number] [place] [address] May, [facility] [place] [facility] [address] [id number] [place] [address] May, [facility] [place] [facility] [address] [id number] [place] [address] May, [facility] [place] [facility] [address] [id number] [place] [address] May, [facility] [place] [facility] [address] [id number] [place] [address] May, [facility] [place] [facility] [address] [id number] [place] [address] May, [facility] [place] [facility] [address] [id number] [place] [address] May, [facility] [place] [facility] [address] [id number] [place] [address] May, [facility] [place] [facility] [address] [id number] [place] [address] May, [facility] [place] [facility] [address] [id number] [place] [address]- [address] Apr, [facility] [place] [facility] [address] [id number] [place] [address] Apr, [facility] [place] [facility] [address] [id number] [place] [address] Apr, [facility] [place] [facility] [address] [id number] [place] [address] Apr, [facility] [place] [facility] [address] [id number] [place] [address] Apr, [facility] [place] [facility] [address] [id number] [place] [address] 95[address] Apr, [facility] [place] [facility] [address] [id number] [place] [address] Apr, [facility] [place] [facility] [address] [id number] [place] [address] 8035 Apr, [facility] [place] [facility] [address] [id number] [place] [address] Apr, [facility] [place] [facility] [address] [id number] [place] [address]127 Mar, [facility] [place] [facility] [address] [id number] [place] [address] Mar, [facility] [place] [facility] [address] [id number] [place] [address] 4867 Mar, [facility] [place] [facility] [address] [id number] [place] [address] Mar, [facility] [place] [facility] [address] [id number] [place] [address] 8080 Mar, [facility] [place] [facility] [address] [id number] [place] [address] 8738 Mar, [facility] [place] [facility] [address] [id number] [place] [address] 6953 Mar, [facility] [place] [facility] [address] [id number] [place] [address] 6146 Mar, [facility] [place] [facility] [address] [id number] [address] Mar, [facility] [place] [facility] [address] [id number] [place] [address] Mar, [facility] [place] [facility] [address] [id number] [place] [address] 3470 Feb, [facility] [place] [facility] [address] [id number] [place] [address] 4828 Feb, [facility] [place] [facility] [address] [id number] [place] [address]168 19 Feb, 2014 [facility] [place] [facility] [address] [id number] [place] [address]- 5168 Feb, [facility] [place] [facility] [address] [id number] [place] [address] 5514 Feb, [facility] [place] [facility] [address] [id number] [place] [address]502 Jan, [facility] [place] [facility] [address] [id number] [place] [address]- 1153 Jan, [facility] [place] [facility] [address] [id number] [place] [address]- 1305 Jan, [facility] [place] [facility] [address] [id number] [place] [address] 2624 Jan, [facility] [place] [facility] [address] [id number] [place] [address]- 0874 Jan, [facility] [place] [facility] [address] [id number] [place] [address]- 1573 Jan, [facility] [place] [facility] [address] [id number] [place] [address]- 0107 Jan, [facility] [place] [facility] [address] [id number] [place] [address] 2142 Jan, [facility] [place] [facility] [address] [id number] [place] [address] 0600 Jan, [facility] [place] [facility] [address] [id number] [place] [address] 4845 Dec, [facility] [place] [facility] [address] [id number] [place] [address]- 5029 Dec, [facility] [place] [facility] [address] [id number] [place] [address]- 5018 Dec, [facility] [place] [facility] [address] [id number] [place] [address]- 4362 Dec, [facility] [place] [facility] [address] [id number] [place] [address] 7432 Dec, [facility] [place] [facility] [address] [id number] [place] [address] 8331 Dec, [facility] [place] [facility] [address] [id number] [place] [address] 6141 Dec, [facility] [place] [facility] [address] [id number] [place] [address] 4174 Dec, [facility] [place] [facility] [address] [id number] [place] [address]- 8205 Nov, [facility] [place] [facility] [address] [id number] [place] [address]- 0673 Nov, [facility] [place] [facility] [address] [id number] [place] [address]- 0662 Nov, [facility] [place] [facility] [address] [id number] [place] [address]- 9128 Nov, [facility] [place] [facility] [address] [id number] [place] [address]- 0654 Nov, [facility] [place] [facility] [address] [id number] [place] [address]- 2440 Nov, [facility] [place] [facility] [address] [id number] [place] [address] 1868 Nov, [facility] [place] [facility] [address] [id number] [place] [address]- 6387 Nov, [facility] [place] [facility] [address] [id number] [place] [address]- 7483 Nov, [facility] [place] [facility] [address] [id number] [place] [address]- 2868 Nov, [facility] [place] [facility] [address] [id number] [place] [address] 1985 Nov, [facility] [place] [facility] [address] [id number] [place] [address]- 2646 Nov, [facility] [place] [facility] [address] [id number] [place] [address]- 1452 October, [facility] [place] [facility] [address] [id number] [place] [address]- 5195 October, [facility] [place] [facility] [address] [id number] [place] [address]- 1198 October, [facility] [place] [facility] [address] [id number] [place] [address]- 0463 October, [facility] [place] [facility] [address] [id number] [place] [address]- 2986 October, [facility] [place] [facility] [address] [id number] [place] [address]- 1557 Sep, [facility] [place] [facility] [address] [id number] [place] [address]- 3608 Sep, [facility] [place] [facility] [address] [id number] [place] [address]- 3510 Sep, [facility] [place] [facility] [address] [id number] [place] [address]- 4138 Sep, [facility] [place] [facility] [address] [id number] [place] [address]- 5356 Sep, [facility] [place] [facility] [address] [id number] [place] [address]- 1284 Sep, [facility] [place] [facility] [address] [id number] [place] [address]- 0273 Sep, [facility] [place] [facility] [address] [id number] [place] [address]- 2126 Sep, [facility] [place] [facility] [address] [id number] [place] [address]- 8267 Sep, [facility] [place] [facility] [address] [id number] [place] [address]- 3149 Sep, [facility] [place] [facility] [address] [id number] [place] [address]- 6539 Sep, [facility] [place] [facility] [address] [id number] [place] [address]- 4655 Sep, [facility] [address] [id number] [place] [address]- 4357 Sep, [facility] [place] [facility] [address] [id number] [place] [address]- 6959 Sep, [facility] [address] [id number] [place] [address]- 4580 Sep, [facility] [place] [facility] [address] [id number] [place] [address]- 2441 Sep, [facility] [address] [id number] [place] [address]- 3785 Sep, [facility] [place] [facility] [address] [id number] [place] [address]- 5181 Sep, [facility] [place] [facility] [address] [id number] [place] [address]- 8971 Sep, [facility] [address] [id number] [place] [address]- 4949 Aug, [facility] [place] [facility] [address] [id number] [place] [address]- 1053 Aug, [facility] [address] [id number] [place] [address]- 5105 Aug, [facility] [place] [facility] [address] [id number] [place] [address]- 5081 Aug, [facility] [place] [facility] [address] [id number] [place] [address]- 2927 Jun, [facility] [place] [facility] [address] [id number] [place] [address]- 4971 Jun, [facility] [place] [facility] [address] [id number] [place] [address]- 8487 Mar, [facility] [place] [facility] [address] [id number] [place] [address]- 7600 Mar, [facility] [address] [facility] [id number] [address]326 17 Nov, 2012 [facility] [address] [id number] [address] Sep, [facility] [address] [id number] [address]- 5566 Jun, [facility] [id number] [address] 8406 Jun, [facility] [address] [id number] [address] 6767 Apr, [facility] [id number] [address] 2186 Apr, [facility] [id number] [address]- 2546 Apr, [facility] [address] [id number] [address] 4096 Mar, [facility] [address] [id number] [address] 0306 Feb, IMMUNIZATIONS No Known Immunizations SOCIAL HISTORY Never Assessed REASON FOR VISIT Diabetic testing supplies PLAN OF CARE VITAL SIGNS MEDICATIONS Medication Instructions Dosage Frequency Start Date End Date Duration Status Lancets Lancets check blood sugar Dec, Active Test strips test strips Check blood sugar Dec, Active Pen [place] 32G X 4 MM as directed Dec, Active Levemir FlexTouch 100 UNIT/ML Subcutaneous Once a day 40 units at bedtime 24h Active RESULTS No Results PROCEDURES No Known [...]
--- OUTSIDE RECORDS SUMMARY | 2018-08-13 18:23 | XMS REPORT ---
Author Author CHAS OILVIER [facility] Address [address] [place] [address] Care Team Providers Care Hand Potter Name Role Phone CHAS OLIVIER Unavailable PROBLEMS Type Condition ICD9-CM Code [id number] Code Onset Dates Condition Status SNOMED Code Problem Other chronic pain G89.29 Active 78648941 Problem Bulging of cervical intervertebral disc M50.20 Active 038057713 Problem Vaginal burning N94.9 Active 306838944 Problem Type 2 diabetes mellitus with hyperglycemia E11.65 Active 77169247 Problem Type 2 diabetes mellitus without complications E11.9 Active 434462944 Problem Gastroesophageal reflux disease, esophagitis presence not specified K21.9 Active 466501008 Problem Hand eczema L30.9 Active 221411901 Problem jail 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 Active 069503216 Problem Type 2 diabetes mellitus without complication, without long-term current use of insulin E11.9 Active 596203906 Problem Hypothyroidism E03.9 Active 17262244 Problem Bulge of cervical disc without myelopathy M50.20 Active 468225608 Problem Cervical dysplasia N87.9 Active 94827292 Problem Prediabetes R73.09 Active 7711107 Problem Mild intermittent asthma, uncomplicated J45.20 Active 648861466 Problem Lumbar facet arthropathy M46.96 Active 247206365 Problem Generalized anxiety disorder F41.1 Active 49884338 Problem Hypertriglyceridemia E78.1 Active 590139565 Problem Schizoaffective disorder, bipolar type F25.0 Active 90493810 ALLERGIES No Information ENCOUNTERS Encounter Location Date Diagnosis [facility] [id number] [place] [address] 97666- 6281 Feb, [facility] [id number] [address] 9127 Feb, Type 2 diabetes mellitus with hyperglycemia E11.65 and 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 [place] [id number] [place] [address] 79395- 1455 Feb, Type 2 diabetes mellitus without complication, without long- term current use of insulin E11.9 ; Hypertriglyceridemia E78.1 and Gastroesophageal reflux disease, esophagitis presence not specified K21.9 [place] [id number] [place] [address] 27748- 6262 Feb, [place] [id number] [place] [address] 59956- 9406 Jan, [place] [id number] [place] [address] 59352- 9904 Jan, Type 2 diabetes mellitus without complication, without long- term current use of insulin E11.9 [place] [id number] [place] [address] 28292- 8521 Dec, [place] [id number] [place] [address] 54572- 1512 Dec, [place] [id number] [place] [address] 30753- 6604 Dec, Type 2 diabetes mellitus without complications E11.9 ; 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 and BMI 40.0-44.9, adult Z68.41 [place] [address] [address] 0142 Dec, Type 2 diabetes mellitus without complication, without long- term current use of insulin E11.9 [place] [address] [address] 8196 Dec, [place] [id number] [place] [address] 45606- 6140 Dec, Type 2 diabetes mellitus without complication, without long- term current use of insulin E11.9 [place] [address] [address] 4759 Dec, Type 2 diabetes mellitus without complication, without long- term current use of insulin E11.9 ; Gastroesophageal reflux disease, esophagitis presence not specified K21.9 and BMI 40.0-44.9, adult Z68.41 [facility] [id number] [place] [address] 78672- 5750 Dec, [facility] [address] [place] [address] [id number] October, Dental examination Z01.20 [place] [address] 76219- 2325 Sep, [place] [address] 62510- 1657 Sep, Hypertriglyceridemia E78.1 [place] [address] 75796- 7631 Sep, Hypothyroidism E03.9 ; Prediabetes R73.09 ; Mild intermittent asthma, uncomplicated J45.20 ; Bulge of cervical disc without myelopathy M50.20 ; Other chronic pain G89.29 ; Hand eczema L30.9 ; Right anterior knee pain M25.561 ; Hypertriglyceridemia E78.1 and BMI 40.0-44.9, adult Z68.41 [place] [address] 12263- 4477 Sep, [place] [id number] [place] [address] 61508- 8668 Sep, [place] [id number] [place] [address] 40059- 3198 Jul, [place] [id number] [place] [address] 73454- 8797 May, Acute non-recurrent maxillary sinusitis J01.00 [facility] [id number] [place] [address] 58235 -8313 Mar, Other viral agents as the cause of diseases classified elsewhere B97.89 and Acute upper respiratory infection, unspecified J06.9 [place] [address] 60501- 5273 Mar, [facility] [address] 22516- 7849 Mar, Neck pain M54.2 [place] [address] 48647- 7536 27 Feb, 2017 Bulge of cervical disc without myelopathy M50.20 [place] [address] 86971- 7844 Feb, Neck pain M54.2 [place] [address] 12435- 8664 Feb, [place] [address] 12014- 8670 Feb, Bulge of cervical disc without myelopathy M50.20 ; Hypertriglyceridemia E78.1 ; Hand eczema L30.9 and Hypothyroidism E03.9 [place] [address] 81818- 8268 Jan, [facility] [address] [id number] October, 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 dental examination Z01.20 [place] [address] 03801- 7881 Sep, Generalized abdominal pain R10.84 [place] [address] 87556- 7854 Sep, Schizoaffective disorder, bipolar type F25.0 and Generalized anxiety disorder F41.1 [facility] [id number] [place] [address] 59915 -4393 Sep, [facility] [address] 52425 -4790 Sep, Vaginal burning N94.9 and Vaginal mitzi B37.3 [facility] [address] 79294 -9605 Sep, Gastroenteritis K52.9 [facility] [place] [address] 22698 -9328 18 Sep, 2016 Thrush B37.0 [facility] IN [address] 89159 -9461 Sep, Pharyngitis due to other organism J02.[address] 92554- 4148 Sep, [facility] IN [address] 40036 -1880 Aug, Cervicalgia M54.[address] 20723- 1881 Aug, Hypothyroidism E03.9 ; Dry skin L85.3 ; Plantar fasciitis, bilateral M72.2 and Other chronic pain G89.29 [facility] IN [address] 91572 -5104 Aug, Abrasion T14.8 [facility] [address] [id number] Aug, Dental examination Z01.20 [facility] IN [address] 39112 -4534 Aug, Excessive cerumen in right ear canal H61.21 ; Impacted cerumen of both ears 380.4 and Bronchitis J40 [facility] IN [address] 28892 -6817 Jul, Bilateral impacted cerumen H61.23 and Acute non-recurrent frontal sinusitis J01.[address] 84319- 1554 May, Schizoaffective disorder, bipolar type F25.0 and Generalized anxiety disorder F41.[address] 27256- 5646 May, [address] [address]- 4010 May, Cervicalgia M54.2 and Hypertriglyceridemia E78.1 [facility] [id number] [place] [address] 50568- 7696 May, [facility] [id number] [place] [address] 26360- 5177 May, STD exposure Z20.2 and Well woman exam Z01.419 [facility] [id number] [place] [address] 03757- 3534 May, [facility] [id number] [place] [address] 15170- 1721 Mar, [facility] [id number] [place] [address] 89191- 3474 Dec, Pain in left knee M25.562 [facility] [id number] [place] [address] 52216- 4408 Dec, [facility] [id number] [place] [address] 22802- 8596 Nov, [facility] [id number] [place] [address] 50584- 9387 October, [facility] [address] [address]- 5882 Aug, [facility] [id number] [place] [address] 52303- 9833 Jul, [facility] [address] [address]- 3960 Jul, [facility] [id number] [place] [address] 32609- 6492 10 Jul, 2015 Plantar fasciitis M72.2 and 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 [facility] [id number] [place] [address] 01480- 2489 09 Jul, 2015 [facility] [address] [address]- 7482 Jun, Plantar fasciitis M72.2 and Physical exam Z00.00 [facility] [id number] [place] [address] 79884- 5384 Jun, [facility] [id number] [place] [address] 20497- 9726 Jun, [facility] [id number] [place] [address] 37724- 6676 Jun, [facility] [id number] [place] [address] 97808- 5290 May, [facility] [id number] [place] [address] 17817- 1232 May, Hypertriglyceridemia E78.1 [facility] [id number] [place] [address] 37100- 1391 May, Hypothyroidism E03.9 ; Prediabetes R73.09 and Hypertriglyceridemia E78.1 [facility] [id number] [place] [address] 78447- 8646 May, [facility] [id number] [place] [address] 27679- 8058 May, [facility] [id number] [place] [address] 25884- 5460 May, Hypothyroidism E03.9 ; Prediabetes R73.09 and Hypertriglyceridemia E78.1 [facility] [address] [place] [address] 93292- 4744 Apr, Schizoaffective disorder, bipolar type F25.0 [facility] [id number] [place] [address] 30413- 1514 Mar, [facility] [id number] [place] [address] 34804- 4384 Mar, [facility] [address] [id number] [address]- 8256 Mar, [facility] [id number] [place] [address] 25134- 5484 30 Feb, 2015 [facility] [id number] [place] [address] 42744- 2773 24 Feb, 2015 [facility] [id number] [place] [address] 69912- 1472 16 Feb, 2015 [facility] [id number] [place] [address] 26136- 6330 15 Feb, 2015 Screen for STD (sexually transmitted disease) V74.5 ; Counseling on other sexually transmitted diseases V65.45 ; Back pain 724.5 ; Contact with or exposure to venereal diseases V01.6 and Pelvic pain in female 625.9 [facility] [id number] [place] [address] 98068- 4225 15 Feb, 2015 Schizoaffective disorder, unspecified 295.70 and Anxiety state, unspecified 300.00 [facility] [id number] [place] [address] 86709- 6568 14 Feb, 2015 [facility] [id number] [place] [address] 47883- 4380 Feb, [facility] [id number] [place] [address] 33766- 9963 Feb, Impacted cerumen of both ears 380.4 and Mild intermittent asthma 493.90 [facility] [id number] [place] [address] 28383- 8963 Feb, [facility] [id number] [place] [address] 74071- 8875 Jan, [facility] [id number] [place] [address] 54975- 3740 Jan, [facility] [address] [place] [address] 12262- 2213 Jan, [facility] [address] [id number] [address]- 5982 Jan, [facility] [address] [id number] [place] [address]- 0502 Jan, [facility] [address] [id number] [address]- 4255 Jan, [facility] [address] [id number] [address]- 7598 Jan, [facility] [address] [id number] [place] [address]- 5169 Jan, [facility] [address] [facility] [id number] [place] [address]- 6970 Jan, [facility] [address] [facility] [id number] [place] [address]- 7625 Jan, [facility] [address] [facility] [id number] [address]- 8565 Jan, [facility] [address] [facility] [id number] [address]- 3887 Dec, Schizoaffective disorder, unspecified 295.70 [facility] [address] [facility] [id number] [address]- 2005 Dec, [facility] [address] [facility] [id number] [place] [address]- 6684 Dec, [facility] [address] [facility] [id number] [place] [address]- 3407 Dec, [facility] [address] [facility] [id number] [place] [address]- 2661 Dec, [facility] [address] [facility] [id number] [address]- 6300 Dec, [facility] [address] [id number] [id number] Dec, Dental examination V72.2 [facility] [id number] [place] [address] 28428- 3886 Dec, Schizoaffective disorder, unspecified 295.70 ; Persistent disorder of initiating 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.42 and Anxiety state, unspecified 300.00 [facility] [address] [place] [address] 60972642- 1408 Dec, [facility] [id number] [place] [address] 23256- 3949 Nov, High risk medication use V58.69 [facility] [id number] [place] [address] 72018- 6113 Nov, [facility] [id number] [place] [address] 81632- 4988 Nov, [facility] [id number] [place] [address] 70250- 4004 Nov, High risk medication use V58.69 [facility] [id number] [place] [address] 41823- 0388 Nov, [facility] [id number] [place] [address] 72943- 6332 Nov, [facility] [id number] [place] [address] 53477- 6227 Nov, [facility] [id number] [place] [address] 53336- 2241 Nov, Hypothyroidism 244.9 ; Hypertriglyceridemia 272.1 and Prediabetes 790.29 [facility] [id number] [place] [address] 33878- 2879 Nov, [facility] [id number] [place] [address] 73214- 0068 Nov, [facility] [id number] [place] [address] 43556- 8522 Nov, Bulge of cervical disc without myelopathy 722.0 ; Lumbar facet arthropathy 721.3 ; Family history of stroke V17.1 ; Hyperthyroidism 242.90 and 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 long-term current use of medication V58.69 [facility] [address] [address] 3507 Nov, [facility] [id number] [place] [address] [id number]- 9157 October, [facility] [id number] [place] [address] 39949- 8265 October, [facility] [id number] [place] [address] 46768- 5683 October, [facility] [id number] [place] [address] 17539- 8782 October, [facility] [id number] [place] [address] 91055- 8131 October, [facility] [id number] [place] [address] 14838- 2539 October, [facility] [id number] [place] [address] 92634- 2614 October, Schizoaffective disorder, unspecified 295.70 and Persistent disorder of initiating 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.42 [facility] [id number] [place] [address] 23465- 7204 October, Schizoaffective disorder, unspecified 295.70 [facility] [address] [address]- 3850 October, [facility] [address] [address] 8485 October, [facility] [id number] [place] [address] 46382- 6188 October, [facility] [id number] [place] [address] 13458871- 2845 Sep, Lumbago of lumbar region with sciatica 724.2 and Neck pain 723.1 [facility] [id number] [place] [address] 19904- 5303 14 Sep, 2014 [facility] [place] [facility] [address] [id number] [place] [address]- 7928 13 Sep, 2014 [facility] [place] [facility] [address] [id number] [place] [address]- 6714 26 Aug, 2014 [facility] [place] [facility] [address] [id number] [place] [address]- 9134 26 Aug, 2014 [facility] [place] [facility] [address] [id number] [place] [address]- 1809 26 Aug, 2014 [facility] [place] [facility] [address] [id number] [place] [address]- 9152 Aug, [facility] [place] [facility] [address] [id number] [place] [address]- 1783 24 Aug, 2014 [facility] [place] [facility] [address] [id number] [place] [address]- 2039 24 Aug, 2014 [facility] [place] [facility] [address] [id number] [place] [address]- 8197 20 Aug, 2014 [facility] [place] [facility] [address] [id number] [place] [address]- 3389 20 Aug, 2014 [facility] [place] [facility] [address] [facility] [id number] [place] [address]- 1994 19 Aug, 2014 [facility] [place] [facility] [address] [id number] [place] [address]- 0230 19 Aug, 2014 [facility] [place] [facility] [address] [id number] [address]- 3654 18 Aug, 2014 [facility] [place] [facility] [address] [id number] [place] [address]- 5733 18 Aug, 2014 [facility] [place] [facility] [address] [facility] [id number] [place] [address]- 7989 18 Aug, 2014 [facility] [place] [facility] [address] [facility] [id number] [place] [address]- 8308 18 Aug, 2014 [facility] [place] [facility] [address] [id number] [place] [address]- 3643 16 Aug, 2014 [facility] [place] [facility] [address] [id number] [place] [address]- 3644 Aug, [facility] [place] [facility] [address] [id number] [place] [address]- 9758 Aug, [facility] [place] [facility] [address] [id number] [place] [address]- 1295 Aug, [facility] [place] [facility] [address] [id number] [place] [address]- 0579 Aug, [facility] [place] [facility] [address] [id number] [place] [address]- 5049 Aug, [facility] [place] [facility] [address] [id number] [place] [address]- 1045 Aug, [facility] [place] [facility] [address] [id number] [place] [address]- 4955 Aug, 2014 [facility] [place] [facility] [address] [id number] [place] [address] 05 Aug, 2014 [facility] [place] [facility] [address] [id number] [place] [address] Aug, [facility] [place] [facility] [address] [id number] [place] [address] Aug, [facility] [place] [facility] [address] [id number] [place] [address] Aug, [facility] [place] [facility] [address] [id number] [place] [address] Aug, [facility] [place] [facility] [address] [id number] [place] [address] Jul, [facility] [place] [facility] [address] [id number] [place] [address] Jul, [facility] [place] [facility] [address] [id number] [place] [address] Jul, 2014 [facility] [place] [facility] [address] [id number] [place] [address] Jul, [facility] [place] [facility] [address] [id number] [place] [address] Jul, 2014 [facility] [place] [facility] [address] [id number] [place] [address] Jul, 2014 [facility] [place] [facility] [address] [id number] [place] [address] Jul, 2014 [facility] [place] [facility] [address] [id number] [place] [address] Jul, 2014 [facility] [place] [facility] [address] [id number] [place] [address] Jul, 2014 [facility] [place] [facility] [address] [facility]NOTE [facility]] [id number] [place] [address] Jul, [facility] [place] [facility] [address] [id number] [place] [address] Jun, [facility] [place] [facility] [address] [id number] [place] [address] Jun, [facility] [place] [facility] [address] [facility]NOTE [facility]] [id number] [place] [address] Jun, [facility] [place] [facility] [address] [facility]NOTE [facility]] [id number] [place] [address] Jun, [facility] [place] [facility] [address] [id number] [address] Jun, [facility] [place] [facility] [address] [id number] [address] Jun, [facility] [place] [facility] [address] [facility]NOTE [facility]] [id number] [place] [address]- [address] Jun, [facility] [place] [facility] [address] [facility]NOTE [facility]] [id number] [address] May, [facility] [place] [facility] [address] [id number] [place] [address]- [address] May, [facility] [place] [facility] [address] [id number] [place] [address] May, [facility] [place] [facility] [address] [id number] [place] [address] May, [facility] [place] [facility] [address] [id number] [place] [address] May, [facility] [place] [facility] [address] [id number] [place] [address] May, [facility] [place] [facility] [address] [id number] [place] [address] May, [facility] [place] [facility] [address] [id number] [place] [address] May, [facility] [place] [facility] [address] [id number] [place] [address] May, [facility] [place] [facility] [address] [id number] [place] [address] May, [facility] [place] [facility] [address] [id number] [place] [address] Apr, [facility] [place] [facility] [address] [id number] [place] [address] Apr, [facility] [place] [facility] [address] [id number] [place] [address]327 Apr, [facility] [place] [facility] [address] [id number] [place] [address] Apr, [facility] [place] [facility] [address] [id number] [place] [address] Apr, [facility] [place] [facility] [address] [id number] [place] [address]358 Apr, [facility] [place] [facility] [address] [id number] [place] [address] 3665 Apr, [facility] [place] [facility] [address] [id number] [place] [address] 3164 Apr, [facility] [place] [facility] [address] [id number] [place] [address] 244[address] Apr, [facility] [place] [facility] [address] [id number] [place] [address] Mar, [facility] [place] [facility] [address] [id number] [place] [address] Mar, [facility] [place] [facility] [address] [id number] [place] [address]167 Mar, [facility] [place] [facility] [address] [id number] [place] [address] 0812 Mar, [facility] [place] [facility] [address] [id number] [place] [address] 5777 Mar, [facility] [place] [facility] [address] [id number] [place] [address] 9808 Mar, [facility] [place] [facility] [address] [id number] [place] [address]- 3451 Mar, [facility] [place] [facility] [address] [id number] [place] [address] 3827 Mar, [facility] [place] [facility] [address] [id number] [address] Mar, [facility] [place] [facility] [address] [id number] [place] [address] 9192 Mar, [facility] [place] [facility] [address] [id number] [place] [address]- [address]855 Feb, [facility] [place] [facility] [address] [id number] [place] [address] Feb, [facility] [place] [facility] [address] [id number] [place] [address] 19 Feb, 2014 [facility] [place] [facility] [address] [id number] [place] [address]709 Feb, [facility] [place] [facility] [address] [id number] [place] [address] 2743 Feb, [facility] [place] [facility] [address] [id number] [place] [address]- 6680 Jan, [facility] [place] [facility] [address] [id number] [place] [address] 4[address] Jan, [facility] [place] [facility] [address] [id number] [place] [address] 7867 Jan, [facility] [place] [facility] [address] [id number] [place] [address]- 5906 Jan, [facility] [place] [facility] [address] [id number] [place] [address]- 8657 Jan, [facility] [place] [facility] [address] [id number] [place] [address]- 2628 Jan, [facility] [place] [facility] [address] [id number] [place] [address] 0695 Jan, [facility] [place] [facility] [address] [id number] [place] [address] 8312 Jan, [facility] [place] [facility] [address] [id number] [place] [address] 1751 Jan, [facility] [place] [facility] [address] [id number] [place] [address] 8092 Dec, [facility] [place] [facility] [address] [id number] [place] [address]- 5399 Dec, [facility] [place] [facility] [address] [id number] [place] [address] 8930 Dec, [facility] [place] [facility] [address] [id number] [place] [address]- 2905 Dec, [facility] [place] [facility] [address] [id number] [place] [address]- 5745 Dec, [facility] [place] [facility] [address] [id number] [place] [address]- 2760 Dec, [facility] [place] [facility] [address] [id number] [place] [address]- 9213 Dec, [facility] [place] [facility] [address] [id number] [place] [address]- 9308 Dec, [facility] [place] [facility] [address] [id number] [place] [address]- 8481 Nov, [facility] [place] [facility] [address] [id number] [place] [address]- 9328 Nov, [facility] [place] [facility] [address] [id number] [place] [address]- 9814 Nov, [facility] [place] [facility] [address] [id number] [place] [address]- 3988 Nov, [facility] [place] [facility] [address] [id number] [place] [address]- 7955 Nov, [facility] [place] [facility] [address] [id number] [place] [address]- 7294 Nov, [facility] [place] [facility] [address] [id number] [place] [address]- 7409 Nov, [facility] [place] [facility] [address] [id number] [place] [address]- 8594 Nov, [facility] [place] [facility] [address] [id number] [place] [address]- 4447 Nov, [facility] [place] [facility] [address] [id number] [place] [address]- 5019 Nov, [facility] [place] [facility] [address] [id number] [place] [address]- 9389 Nov, [facility] [place] [facility] [address] [id number] [place] [address]- 4330 Nov, [facility] [place] [facility] [address] [id number] [place] [address]- 2480 October, [facility] [address] [id number] [place] [address] 6827 October, [facility] [place] [facility] [address] [id number] [place] [address]- 0983 October, [facility] [place] [facility] [address] [id number] [place] [address]- 6732 October, [facility] [place] [facility] [address] [id number] [place] [address]- 5458 October, [facility] [place] [facility] [address] [id number] [place] [address]- 7981 Sep, [facility] [place] [facility] [address] [id number] [place] [address]- 5116 Sep, [facility] [place] [facility] [address] [id number] [place] [address]- 0360 Sep, [facility] [place] [facility] [address] [id number] [place] [address]- 3823 Sep, [facility] [place] [facility] [address] [id number] [place] [address]- 0480 Sep, [facility] [place] [facility] [address] [id number] [place] [address]- 0796 Sep, [facility] [place] [facility] [address] [id number] [place] [address]- 1198 Sep, [facility] [place] [facility] [address] [id number] [place] [address]- 4802 Sep, [facility] [place] [facility] [address] [id number] [place] [address]- 0427 Sep, [facility] [place] [facility] [address] [id number] [place] [address]- 2630 Sep, [facility] [place] [facility] [address] [id number] [place] [address]- 1453 Sep, [facility] [place] [facility] [address] [id number] [place] [address]- 4726 Sep, [facility] [place] [facility] [address] [id number] [place] [address]- 4605 Sep, [facility] [place] [facility] [address] [id number] [place] [address]- 9517 Sep, [facility] [place] [facility] [address] [id number] [place] [address]- 1340 Sep, [facility] [place] [facility] [address] [id number] [place] [address]- 7354 Sep, [facility] [place] [facility] [address] [id number] [place] [address]- 7783 Sep, [facility] [place] [facility] [address] [id number] [place] [address]- 9780 Sep, [facility] [place] [facility] [address] [id number] [place] [address]- 4434 Sep, [facility] [place] [facility] [address] [id number] [place] [address]- 1610 Aug, [facility] [place] [facility] [address] [id number] [place] [address]- 1748 Aug, [facility] [place] [facility] [address] [id number] [place] [address]- 4497 Aug, [facility] [place] [facility] [address] [id number] [place] [address]- 1977 Aug, [facility] [place] [facility] [address] [id number] [place] [address]- 6225 Jun, [facility] [place] [facility] [address] [id number] [place] [address]- 6686 Jun, [facility] [place] [facility] [address] [id number] [place] [address]- 4026 Mar, [facility] [place] [facility] [address] [id number] [place] [address]- 8515 Mar, [facility] [id number] [address] 8[address] Nov, [facility] [id number] [address]- 8712 Sep, [facility] [id number] [address] Jun, [facility] [id number] [address]- 2121 Jun, [facility] [id number] [address]- 8919 Apr, [facility] [id number] [place] [address]- [address]78 Apr, [facility] [id number] [address] Apr, [facility] [id number] [address]- [address]992 Mar, [facility] [id number] [address]- 6346 Feb, IMMUNIZATIONS No Known Immunizations SOCIAL HISTORY Never Assessed REASON FOR VISIT provider PLAN OF CARE VITAL SIGNS MEDICATIONS Unknown [...] History Zach Muhammad unit 03/2016 Hospitalization History [facility] x 30 days
--- OUTSIDE RECORDS SUMMARY | 2018-08-13 18:23 | XMS REPORT ---
Author Author CHAS OLIVIER [facility] Address [address] [place] [address] Care Team Providers Care Administrative Tech Name Role Phone CHAS OLIVIER Unavailable PROBLEMS Type Condition ICD9-CM Code YHK06-YR Code Onset Dates Condition Status SNOMED Code Problem Other chronic pain G89.29 Active 26662712 Problem Bulging of cervical intervertebral disc M50.20 Active 364553066 Problem Vaginal burning N94.9 Active 298992208 Problem Type 2 diabetes mellitus with hyperglycemia E11.65 Active 65412342 Problem Type 2 diabetes mellitus without complications E11.9 Active 895342476 Problem Gastroesophageal reflux disease, esophagitis presence not specified K21.9 Active 929927362 Problem Hand eczema L30.9 Active 679312181 Problem USP 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 Active 008814987 Problem Type 2 diabetes mellitus without complication, without long-term current use of insulin E11.9 Active 112014077 Problem Hypothyroidism E03.9 Active 38635927 Problem Bulge of cervical disc without myelopathy M50.20 Active 737693207 Problem Cervical dysplasia N87.9 Active 37495767 Problem Prediabetes R73.09 Active 0480847 Problem Mild intermittent asthma, uncomplicated J45.20 Active 862639476 Problem Lumbar facet arthropathy M46.96 Active 666008838 Problem Generalized anxiety disorder F41.1 Active 40492691 Problem Hypertriglyceridemia E78.1 Active 590199614 Problem Schizoaffective disorder, bipolar type F25.0 Active 32115310 ALLERGIES Substance Reaction Event Type Date Status Seroquel leg pain Drug Allergy Dec, Active ENCOUNTERS Encounter Location Date Diagnosis [facility] [address] [facility] [id number] [address] Feb, [facility] [address] [facility] [id number] [address] 5[address] Feb, Type 2 diabetes mellitus with hyperglycemia E11.65 and USP 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 [facility] [id number] [place] [address] 65541- 4584 Feb, Type 2 diabetes mellitus without complication, without long- term current use of insulin E11.9 ; Hypertriglyceridemia E78.1 and Gastroesophageal reflux disease, esophagitis presence not specified K21.9 [facility] [id number] [place] [address] 94503- 6142 Feb, [facility] [id number] [place] [address] 85647- 2838 Jan, [facility] [id number] [place] [address] 16207- 0877 Jan, Type 2 diabetes mellitus without complication, without long- term current use of insulin E11.9 [facility] [id number] [place] [address] 17822- 5328 Dec, [facility] [id number] [place] [address] 00510- 3833 Dec, [facility] [id number] [place] [address] 07982- 4603 Dec, Type 2 diabetes mellitus without complications E11.9 ; USP 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 and BMI 40.0-44.9, adult Z68.41 [facility] [address] [place] [address] 30274- 3298 Dec, Type 2 diabetes mellitus without complication, without long- term current use of insulin E11.9 [facility] [address] [address]- 7638 Dec, [facility] [id number] [place] [address] 43045- 1180 Dec, Type 2 diabetes mellitus without complication, without long- term current use of insulin E11.9 [facility] [id number] [place] [address] 92490- 5994 25 Eddi, 2018 Type 2 diabetes mellitus without complication, without long- term current use of insulin E11.9 ; Gastroesophageal reflux disease, esophagitis presence not specified K21.9 and BMI 40.0-44.9, adult Z68.41 [facility] [id number] [place] [address] 51525- 0812 Dec, [facility] [id number] [place] [address] [id number] October, Dental examination Z01.20 [facility] [address] 22502- 9312 Sep, [address] 30769- 7436 Sep, Hypertriglyceridemia E78.[address] 27256- 8102 Sep, Hypothyroidism E03.9 ; Prediabetes R73.09 ; Mild intermittent asthma, uncomplicated J45.20 ; Bulge of cervical disc without myelopathy M50.20 ; Other chronic pain G89.29 ; Hand eczema L30.9 ; Right anterior knee pain M25.561 ; Hypertriglyceridemia E78.1 and BMI 40.0-44.9, adult Z68.41 [facility] [id number] [place] [address] 96702- 4371 Sep, [facility] [id number] [place] [address] 11246- 9061 Sep, [facility] [id number] [place] [address] 94321- 7816 Jul, [address] 32185- 0512 May, Acute non-recurrent maxillary sinusitis J01.00 [facility] [id number] [place] [address] 34129 -3881 Mar, Other viral agents as the cause of diseases classified elsewhere B97.89 and Acute upper respiratory infection, unspecified J06.[id number] [place] [address] 69601- 3259 2017 [facility] [address] 00438- 8840 Mar, Neck pain M54.2 [facility] [address] 81852- 7564 27 Feb, 2017 Bulge of cervical disc without myelopathy M50.20 [facility] [address] 57589- 2020 Feb, Neck pain M54.2 [facility] [address] 76351- 5658 Feb, [facility] [address] 00076- 0172 Feb, Bulge of cervical disc without myelopathy M50.20 ; Hypertriglyceridemia E78.1 ; Hand eczema L30.9 and Hypothyroidism E03.9 [facility] [id number] [place] [address] 61282- 0112 Jan, [facility] [address] [id number] October, 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 dental examination Z01.20 [facility] [address] 17763- 8900 Sep, Generalized abdominal pain R10.84 [facility] [address] 53557- 8431 Sep, Schizoaffective disorder, bipolar type F25.0 and Generalized anxiety disorder F41.1 [facility] [address] 93773 -9056 Sep, [facility] [address] 89563 -7228 Sep, Vaginal burning N94.9 and Vaginal mitzi B37.3 [facility] [address] 48205 -1552 Sep, Gastroenteritis K52.9 [facility] [address] [address] -[address]78 Sep, Thrush B37.0 [facility] [address] 46[address] -[address]73 Sep, Pharyngitis due to other organism J02.[address] 98806- 3703 Sep, [facility] [address] 28332 -1464 Aug, Cervicalgia M54.[address] 44944- 7618 Aug, Hypothyroidism E03.9 ; Dry skin L85.3 ; Plantar fasciitis, bilateral M72.2 and Other chronic pain G89.29 [facility] [address] 96356 -7131 Aug, Abrasion T14.8 [facility] [address] [id number] Aug, Dental examination Z01.20 [facility] [address] 45732 -9772 Aug, Excessive cerumen in right ear canal H61.21 ; Impacted cerumen of both ears 380.4 and Bronchitis J40 [facility] [address] 30083 -7249 Jul, Bilateral impacted cerumen H61.23 and Acute non-recurrent frontal sinusitis J01.[address] 71838- 6215 May, Schizoaffective disorder, bipolar type F25.0 and Generalized anxiety disorder F41.[address] 25957- 2395 May, [facility] [address] [place] [address] 74831- 6514 May, Cervicalgia M54.2 and Hypertriglyceridemia E78.1 [facility] [id number] [place] [address] 48849- 0369 May, [facility] [id number] [place] [address] 02001- 8890 May, STD exposure Z20.2 and Well woman exam Z01.419 [facility] [id number] [place] [address] 30427- 9687 May, [facility] [id number] [place] [address] 82248- 2850 Mar, [facility] [id number] [place] [address] 96234- 5060 Dec, Pain in left knee M25.562 [facility] [id number] [place] [address] 47626- 9873 Dec, [facility] [id number] [place] [address] 62981- 0171 Nov, [facility] [id number] [place] [address] 96708- 6832 October, [facility] [address] [place] [address] 32225- 8698 Aug, [facility] [id number] [place] [address] 49337- 9454 Jul, [facility] [id number] [place] [address] 31088- 6553 17 Jul, 2015 [facility] [id number] [place] [address] 86894- 2149 10 Jul, 2015 Plantar fasciitis M72.2 and 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 [facility] [id number] [place] [address] 74656- 2522 Jul, [facility] [address] [place] [address] 90577- 9671 Jun, Plantar fasciitis M72.2 and Physical exam Z00.00 [facility] [id number] [place] [address] 48633- 2614 Jun, [facility] [id number] [place] [address] 43042- 1593 Jun, [facility] [id number] [place] [address] 63164- 3344 Jun, [facility] [id number] [place] [address] 89684- 6866 May, [facility] [id number] [place] [address] 97472- 9794 May, Hypertriglyceridemia E78.1 [facility] [id number] [place] [address] 34151- 9398 May, Hypothyroidism E03.9 ; Prediabetes R73.09 and Hypertriglyceridemia E78.1 [facility] [id number] [place] [address] 40383- 7810 May, [facility] [id number] [place] [address] 96413- 2662 May, [facility] [id number] [place] [address] 00674- 7459 May, Hypothyroidism E03.9 ; Prediabetes R73.09 and Hypertriglyceridemia E78.1 [facility] [id number] [place] [address] 46446- 6215 Apr, Schizoaffective disorder, bipolar type F25.0 [facility] [id number] [place] [address] 76515- 5334 Mar, [facility] [id number] [place] [address] 44906- 0816 Mar, [facility] [address] [place] [address] 36830- 8072 Mar, [facility] [id number] [place] [address] 04749- 4049 Feb, [facility] [id number] [place] [address] 49899- 4383 24 Feb, 2015 [facility] [id number] [place] [address] 31685- 7892 16 Feb, 2015 [facility] [id number] [place] [address] 23432- 1981 15 Feb, 2015 Screen for STD (sexually transmitted disease) V74.5 ; Counseling on other sexually transmitted diseases V65.45 ; Back pain 724.5 ; Contact with or exposure to venereal diseases V01.6 and Pelvic pain in female 625.9 [facility] [id number] [place] [address] 22297- 1020 Feb, Schizoaffective disorder, unspecified 295.70 and Anxiety state, unspecified 300.00 [facility] [id number] [place] [address] 51065- 9821 Feb, [facility] [id number] [place] [address] 31422- 3842 Feb, [facility] [id number] [place] [address] 60360- 2106 Feb, Impacted cerumen of both ears 380.4 and Mild intermittent asthma 493.90 [facility] [id number] [place] [address] 37381- 0954 Feb, [facility] [id number] [place] [address] 58655- 5233 Jan, [facility] [id number] [place] [address] 11182- 8979 Jan, [facility] [id number] [place] [address] 34403- 6288 Jan, [facility] [address] [id number] [place] [address]- 6928 Jan, [facility] [address] [id number] [place] [address]- 0042 Jan, [facility] [address] [facility] [id number] [place] [address]- 9844 Jan, [facility] [address] [id number] [place] [address]- 9967 Jan, [facility] [address] [id number] [place] [address]- 5034 Jan, [facility] [address] [facility] [id number] [place] [address]- 5118 Jan, [facility] [address] [facility] [id number] [place] [address]- 4158 Jan, [facility] [address] [facility] [id number] [address]- 3422 Jan, [facility] [address] [facility] [id number] [place] [address]- 9135 Dec, Schizoaffective disorder, unspecified 295.70 [facility] [address] [facility] [id number] [place] [address]- 3443 Dec, [facility] [address] [facility] [id number] [place] [address]- 4182 Dec, [facility] [address] [facility] [id number] [address]- 8327 Dec, [facility] [address] [facility] [id number] [place] [address]- 6056 Dec, [facility] [address] [facility] [id number] [place] [address]- 0428 Dec, [facility] [address] [id number] [id number] Dec, Dental examination V72.2 [facility] [address] [address]- 4142 Dec, Schizoaffective disorder, unspecified 295.70 ; Persistent disorder of initiating 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.42 and Anxiety state, unspecified 300.00 [facility] [address] [address]- 4692 Dec, [facility] [id number] [place] [address] 26481- 9882 Nov, High risk medication use V58.69 [facility] [address] [address]- 8793 Nov, [facility] [id number] [place] [address] 27776- 4493 Nov, [facility] [id number] [place] [address] 25961- 0829 Nov, High risk medication use V58.69 [facility] [address] [place] [address] 62512- 3132 Nov, [facility] [id number] [place] [address] 96205- 2468 Nov, [facility] [address] [address]- 3190 Nov, [facility] [id number] [place] [address] 29987- 5558 Nov, Hypothyroidism 244.9 ; Hypertriglyceridemia 272.1 and Prediabetes 790.29 [facility] [address] [address]- 8323 Nov, [facility] [id number] [place] [address] 20320- 8073 Nov, [facility] [address] [address]- 3059 Nov, Bulge of cervical disc without myelopathy 722.0 ; Lumbar facet arthropathy 721.3 ; Family history of stroke V17.1 ; Hyperthyroidism 242.90 and 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 long-term current use of medication V58.69 [facility] [id number] [place] [address] 961741- 2060 Nov, [facility] [id number] [place] [address] 10351- 2117 October, [facility] [id number] [place] [address] [id number]- 0145 October, [facility] [id number] [place] [address] 50542- 5534 October, [facility] [id number] [place] [address] 89137- 9009 October, [facility] [id number] [place] [address] 81577- 9367 October, [facility] [id number] [place] [address] 42108- 0049 October, [facility] [address] [place] [address] 69536- 5889 October, Schizoaffective disorder, unspecified 295.70 and Persistent disorder of initiating 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.42 [facility] [id number] [place] [address] 15905- 6962 October, Schizoaffective disorder, unspecified 295.70 [facility] [id number] [place] [address] 21975- 5857 October, [facility] [id number] [place] [address] 79299- 7991 October, [facility] [id number] [place] [address] 20127901- 7274 October, [facility] [id number] [place] [address] [id number]- 5285 Sep, Lumbago of lumbar region with sciatica 724.2 and Neck pain 723.1 [facility] [address] [id number] [place] [address]- 8142 14 Sep, 2014 [facility] [place] [facility] [address] [id number] [place] [address]- 7686 13 Sep, 2014 [facility] [place] [facility] [address] [id number] [place] [address]- 1535 26 Aug, 2014 [facility] [place] [facility] [address] [id number] [place] [address]- 8636 26 Aug, 2014 [facility] [place] [facility] [address] [id number] [place] [address]- 8967 26 Aug, 2014 [facility] [place] [facility] [address] [id number] [place] [address]- 3026 Aug, [facility] [place] [facility] [address] [id number] [place] [address]- 6120 24 Aug, 2014 [facility] [place] [facility] [address] [id number] [place] [address]- 1709 24 Aug, 2014 [facility] [place] [facility] [address] [id number] [place] [address]- 7195 Aug, [facility] [place] [facility] [address] [id number] [place] [address]- 6257 20 Aug, 2014 [facility] [place] [facility] [address] [id number] [place] [address]- 8691 19 Aug, 2014 [facility] [place] [facility] [address] [id number] [place] [address]- 3042 19 Aug, 2014 [facility] [place] [facility] [address] [id number] [place] [address]- 0908 18 Aug, 2014 [facility] [place] [facility] [address] [id number] [place] [address]- 5844 18 Aug, 2014 [facility] [place] [facility] [address] [id number] [place] 5237 18 Aug, 2014 [facility] [place] [facility] [address] [id number] [place] [address]- 4134 Aug, [facility] [place] [facility] [address] [id number] [place] [address]- 1834 Aug, [facility] [place] [facility] [address] [id number] [place] [address]- 0847 Aug, [facility] [place] [facility] [address] [id number] [place] [address]- 0092 Aug, [facility] [place] [facility] [address] [id number] [place] [address]- 1658 Aug, [facility] [place] [facility] [address] [id number] [place] [address]- 9243 Aug, [facility] [place] [facility] [address] [id number] [place] [address]- 0625 Aug, [facility] [place] [facility] [address] [id number] [place] [address]- 4648 Aug, [facility] [place] [facility] [address] [id number] [place] [address]- 7720 Aug, [facility] [place] [facility] [address] [id number] [place] [address]- 8518 Aug, [facility] [place] [facility] [address] [id number] [place] [address]- 0419 Aug, [facility] [place] [facility] [address] [id number] [place] [address]- 8788 Aug, [facility] [place] [facility] [address] [id number] [place] [address]- 2003 Aug, [facility] [place] [facility] [address] [id number] [place] [address]- 6931 Aug, [facility] [place] [facility] [address] [id number] [place] [address]- 1318 Jul, [facility] [place] [facility] [address] [id number] [place] [address]- 5581 Jul, [facility] [place] [facility] [address] [id number] [place] [address]- 8314 Jul, 2014 [facility] [place] [facility] [address] [id number] [place] [address]- 5474 Jul, 2014 [facility] [place] [facility] [address] [id number] [place] [address]- 9573 Jul, 2014 [facility] [place] [facility] [address] [id number] [place] [address]- 0126 Jul, 2014 [facility] [place] [facility] [address] [id number] [place] [address]- 6708 Jul, 2014 [facility] [place] [facility] [address] [id number] [place] [address]- 0565 Jul, 2014 [facility] [place] [facility] [address] [facility] [id number] [place] [address]- 1845 Jul, 2014 [facility] [place] [facility] [address] [id number] [place] [address]- 9879 Jul, [facility] [place] [facility] [address] [id number] [place] [address]- 7362 Jun, [facility] [place] [facility] [address] [id number] [place] [address]- 1368 Jun, [facility] [place] [facility] [address] [id number] [place] [address]- 8230 Jun, [facility] [place] [facility] [address] [id number] [place] [address]- 6424 Jun, [facility] [place] [facility] [address] [id number] [place] [address] Jun, [facility] [place] [facility] [address] [id number] [place] [address] Jun, [facility] [place] [facility] [address] [id number] [place] [address] Jun, [facility] [place] [facility] [address] [id number] [place] [address] May, [facility] [place] [facility] [address] [id number] [place] [address] May, [facility] [place] [facility] [address] [id number] [place] [address] May, [facility] [place] [facility] [address] [facility] [id number] [place] [address] May, [facility] [place] [facility] [address] [id number] [place] [address] May, [facility] [place] [facility] [address] [id number] [place] [address] May, [facility] [place] [facility] [address] [id number] [place] [address] May, [facility] [place] [facility] [address] [facility] [id number] [place] [address] May, [facility] [place] [facility] [address] [id number] [place] [address] May, [facility] [place] [facility] [address] [id number] [place] [address] May, [facility] [place] [facility] [address] [facility] [id number] [place] [address] Apr, [facility] [place] [facility] [address] [id number] [place] [address] Apr, [facility] [place] [facility] [address] [id number] [place] [address] Apr, [facility] [place] [facility] [address] [id number] [place] [address] Apr, [facility] [place] [facility] [address] [id number] [place] [address] Apr, [facility] [place] [facility] [address] [facility] [id number] [place] [address] 1987 Apr, [facility] [place] [facility] [address] [id number] [place] [address] Apr, [facility] [place] [facility] [address] [id number] [place] [address] Apr, [facility] [place] [facility] [address] [id number] [place] [address] Apr, [facility] [place] [facility] [address] [id number] [place] [address] Mar, [facility] [place] [facility] [address] [id number] [place] [address] Mar, [facility] [place] [facility] [address] [id number] [place] [address] Mar, [facility] [place] [facility] [address] [id number] [place] [address] Mar, [facility] [place] [facility] [address] [id number] [place] [address] Mar, [facility] [place] [facility] [address] [id number] [place] [address] Mar, [facility] [place] [facility] [address] [id number] [place] [address] Mar, [facility] [place] [facility] [address] [id number] [place] [address] Mar, [facility] [place] [facility] [address] [id number] [place] [address] Mar, [facility] [place] [facility] [address] [id number] [place] [address] Mar, [facility] [place] [facility] [address] [id number] [place] [address] Feb, [facility] [place] [facility] [address] [id number] [place] [address] Feb, [facility] [place] [facility] [address] [id number] [place] [address] Feb, [facility] [place] [facility] [address] [id number] [place] [address] Feb, [facility] [place] [facility] [address] [id number] [place] [address]698 Feb, [facility] [place] [facility] [address] [id number] [place] [address] Jan, [facility] [place] [facility] [address] [id number] [place] [address] Jan, [facility] [place] [facility] [address] [id number] [place] [address] Jan, [facility] [place] [facility] [address] [id number] [place] [address] Jan, [facility] [place] [facility] [address] [id number] [place] [address] Jan, [facility] [place] [facility] [address] [id number] [place] [address] 45[address] Jan, [facility] [place] [facility] [address] [id number] [place] [address] Jan, [facility] [place] [facility] [address] [id number] [place] [address] Jan, [facility] [place] [facility] [address] [id number] [place] [address] Jan, [facility] [place] [facility] [address] [id number] [place] [address] Dec, [facility] [place] [facility] [address] [id number] [place] [address]71 Dec, [facility] [place] [facility] [address] [id number] [place] [address] 7964 Dec, [facility] [place] [facility] [address] [id number] [place] [address] 3597 Dec, [facility] [place] [facility] [address] [id number] [place] [address] Dec, [facility] [place] [facility] [address] [id number] [place] [address] 1480 Dec, [facility] [place] [facility] [address] [id number] [place] [address]- [address] Dec, [facility] [place] [facility] [address] [id number] [place] [address] Dec, [facility] [place] [facility] [address] [id number] [place] [address]- [address] Nov, [facility] [place] [facility] [address] [id number] [place] [address] Nov, [facility] [place] [facility] [address] [id number] [place] [address]33 Nov, [facility] [place] [facility] [address] [id number] [place] [address]658 Nov, [facility] [place] [facility] [address] [id number] [place] [address] Nov, [facility] [place] [facility] [address] [id number] [place] [address]- [address] Nov, [facility] [place] [facility] [address] [id number] [place] [address]- [address]44 Nov, [facility] [place] [facility] [address] [id number] [place] [address]- 1680 Nov, [facility] [place] [facility] [address] [id number] [place] [address]- [address]395 Nov, [facility] [place] [facility] [address] [id number] [place] [address] 5517 Nov, [facility] [place] [facility] [address] [id number] [place] [address]- 8475 Nov, [facility] [place] [facility] [address] [id number] [place] [address]- 1027 Nov, [facility] [place] [facility] [address] [id number] [place] [address] 9878 October, [facility] [place] [facility] [address] [id number] [place] [address] October, [facility] [place] [facility] [address] [id number] [place] [address] October, [facility] [place] [facility] [address] [id number] [place] [address]59 October, [facility] [place] [facility] [address] [id number] [place] [address]- 1675 October, [facility] [place] [facility] [address] [id number] [place] [address]- [address] Sep, [facility] [place] [facility] [address] [id number] [place] [address]- [address] Sep, [facility] [place] [facility] [address] [id number] [place] [address]- 8267 Sep, [facility] [place] [facility] [address] [id number] [place] [address]86 Sep, [facility] [place] [facility] [address] [id number] [place] [address]- 2618 Sep, [facility] [place] [facility] [address] [id number] [place] [address]- 7738 Sep, [facility] [place] [facility] [address] [id number] [place] [address]- 6254 Sep, [facility] [place] [facility] [address] [id number] [place] [address]- 1640 Sep, [facility] [place] [facility] [address] [id number] [place] [address]- 0538 Sep, [facility] [place] [facility] [address] [id number] [place] [address]- 0061 Sep, [facility] [place] [facility] [address] [id number] [place] [address]- 6544 Sep, [facility] [place] [facility] [address] [id number] [place] [address]- 3390 Sep, [facility] [place] [facility] [address] [id number] [place] [address]- 4493 Sep, [facility] [place] [facility] [address] [id number] [place] [address]- 0753 Sep, [facility] [place] [facility] [address] [id number] [place] [address]- 6611 Sep, [facility] [place] [facility] [address] [id number] [place] [address]- [address]327 Sep, [facility] [place] [facility] [address] [id number] [place] [address]- 5971 Sep, [facility] [place] [facility] [address] [id number] [place] [address]- 0640 Sep, [facility] [place] [facility] [address] [id number] [place] [address]- 3189 Sep, [facility] [place] [facility] [address] [id number] [place] [address]- 2909 Aug, [facility] [place] [facility] [address] [id number] [place] [address]- 1335 Aug, [facility] [place] [facility] [address] [id number] [place] [address]- 1585 Aug, [facility] [place] [facility] [address] [id number] [place] [address]- 0091 Aug, [facility] [place] [facility] [address] [id number] [place] [address]- 2855 Jun, [facility] [place] [facility] [address] [id number] [place] [address]- 0488 Jun, [facility] [place] [facility] [address] [id number] [place] [address]- 4518 Mar, [facility] [place] [facility] [address] [id number] [address] Mar, 2013 [facility] [id number] [address] Nov, [facility] [id number] [address] Sep, [facility] [id number] [address] Jun, [facility] [id number] [address] 6416 Jun, [facility] [id number] [place] [address]- [address] Apr, [facility] [id number] [address] Apr, [facility] [id number] [address]84 Apr, [facility] [id number] [address] Mar, [facility] [id number] [address] 8006 Feb, IMMUNIZATIONS No Known Immunizations SOCIAL HISTORY Never Assessed REASON FOR VISIT [facility] OF CARE Activity Details Follow Up 4 Weeks with PCP Reason: VITAL SIGNS Height 62 in 2018-01-12 Weight 229.0 lbs 2018-01-12 Temperature 98.4 degrees Fahrenheit 2018-01-12 Heart Rate 96 bpm 2018-01-12 Respiratory Rate 18 2018-01-12 BMI 41.88 kg/m2 2018-01-12 Blood pressure systolic 122 mmHg 2018-01-12 Blood pressure diastolic 76 mmHg 2018-01-12 MEDICATIONS Medication Instructions Dosage Frequency Start Date End Date Duration Status Paul HFA 108 (90 Base) MCG/ACT Inhalation every 4-6 hours as needed 2 puffs as needed Sep, Active Depakote ER 10 mg Orally at bedtime 1 tablet Active Haloperidol 5 mg Orally Once a day 1 tablet 24h Active Ibuprofen 600 MG Orally Three times a day 1 tablet with food or milk as needed 8h Mar, 90 days Active Ranitidine HCl 150 MG Orally twice a day 1 tablet 12h Dec, 30 day(s) Active Pen [place] 32G X 4 MM as directed 6h Dec, Active Lancets Lancets check blood sugar 24h Dec, Active Invega 9 MG Orally Once a day 1 tablet in the morning 24h Active Levemir FlexTouch 100 UNIT/ML Subcutaneous Once a day 40 units at bedtime 24h Active Atorvastatin Calcium 40 mg Orally Once a day 1 tablet 24h Sep, 30 day(s) Active Glucometer 1 glucometer check blood sugars Dec, Active Depakote ER 250 MG Active MetFORMIN HCl ER 500 mg Orally twice a day for 1 week then increase to 2 tablet twice daily 1 tablet Dec, Active Test strips test strips Check blood sugar Dec, Active RESULTS No Results PROCEDURES No Known [...]
--- OUTSIDE RECORDS SUMMARY | 2018-08-13 18:24 | XMS REPORT ---
Author Author CHAS OLIVIER [facility] Address [address] [place] [address] Care Team Providers Care Contract Technician Name Role Phone CHAS OLIVIER Unavailable PROBLEMS Type Condition ICD9-CM Code JPF69-OP Code Onset Dates Condition Status SNOMED Code Problem Other chronic pain G89.29 Active 67691866 Problem Bulging of cervical intervertebral disc M50.20 Active 100147058 Problem Vaginal burning N94.9 Active 089910774 Problem Type 2 diabetes mellitus with hyperglycemia E11.65 Active 13239290 Problem Type 2 diabetes mellitus without complications E11.9 Active 510010894 Problem Gastroesophageal reflux disease, esophagitis presence not specified K21.9 Active 043477658 Problem Hand eczema L30.9 Active 914720439 Problem FPC 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 Active 800214688 Problem Type 2 diabetes mellitus without complication, without long-term current use of insulin E11.9 Active 121431090 Problem Hypothyroidism E03.9 Active 22465468 Problem Bulge of cervical disc without myelopathy M50.20 Active 344300295 Problem Cervical dysplasia N87.9 Active 28113913 Problem Prediabetes R73.09 Active 8722556 Problem Mild intermittent asthma, uncomplicated J45.20 Active 115895272 Problem Lumbar facet arthropathy M46.96 Active 328159657 Problem Generalized anxiety disorder F41.1 Active 86441746 Problem Hypertriglyceridemia E78.1 Active 140469536 Problem Schizoaffective disorder, bipolar type F25.0 Active 95763408 ALLERGIES Substance Reaction Event Type Date Status Seroquel leg pain Drug Allergy Dec, Active ENCOUNTERS Encounter Location Date Diagnosis [facility] [address] [facility] [id number] [address] Feb, [facility] [address] [facility] [id number] [address] 0606 Feb, Type 2 diabetes mellitus with hyperglycemia E11.65 and FPC 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 [facility] [id number] [place] [address] 20340- 0178 Feb, Type 2 diabetes mellitus without complication, without long- term current use of insulin E11.9 ; Hypertriglyceridemia E78.1 and Gastroesophageal reflux disease, esophagitis presence not specified K21.9 [facility] [id number] [place] [address] 38618- 9552 Feb, [facility] [id number] [place] [address] 72166- 1663 Jan, [facility] [id number] [place] [address] 38564- 8242 Jan, Type 2 diabetes mellitus without complication, without long- term current use of insulin E11.9 [facility] [id number] [place] [address] 08814- 3798 Dec, [facility] [id number] [place] [address] 60427- 8000 Dec, [facility] [id number] [place] [address] 64651- 8341 Dec, Type 2 diabetes mellitus without complications E11.9 ; FPC 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 and BMI 40.0-44.9, adult Z68.41 [facility] [place] [address] [place] [address] 02579- 9855 Dec, Type 2 diabetes mellitus without complication, without long- term current use of insulin E11.9 [facility] [address] [address] 6213 Dec, [facility] [id number] [place] [address] 37574- 1834 Dec, Type 2 diabetes mellitus without complication, without long- term current use of insulin E11.9 [facility] [id number] [place] [address] 15264- 1405 25 Eddi, 2018 Type 2 diabetes mellitus without complication, without long- term current use of insulin E11.9 ; Gastroesophageal reflux disease, esophagitis presence not specified K21.9 and BMI 40.0-44.9, adult Z68.41 [facility] [id number] [place] [address] 36558- 3707 Dec, [facility] [id number] [place] [address] [id number] October, Dental examination Z01.20 [facility] [address] 85681- 1811 Sep, [address] 62176- 0776 Sep, Hypertriglyceridemia E78.[address] 12273- 3785 Sep, Hypothyroidism E03.9 ; Prediabetes R73.09 ; Mild intermittent asthma, uncomplicated J45.20 ; Bulge of cervical disc without myelopathy M50.20 ; Other chronic pain G89.29 ; Hand eczema L30.9 ; Right anterior knee pain M25.561 ; Hypertriglyceridemia E78.1 and BMI 40.0-44.9, adult Z68.41 [facility] [id number] [place] [address] 20405- 6410 Sep, [facility] [id number] [place] [address] 32206- 4106 Sep, [facility] [id number] [place] [address] 67022- 0957 Jul, [address] 45617- 4780 May, Acute non-recurrent maxillary sinusitis J01.00 [facility] [id number] [place] [address] 48387 -0122 Mar, Other viral agents as the cause of diseases classified elsewhere B97.89 and Acute upper respiratory infection, unspecified J06.[id number] [place] [address] 04260- 1289 2017 [facility] [address] 99055- 3314 Mar, Neck pain M54.2 [facility] [address] 88177- 6316 27 Feb, 2017 Bulge of cervical disc without myelopathy M50.20 [facility] [address] 60891- 1151 Feb, Neck pain M54.2 [facility] [address] 75210- 8773 Feb, [facility] [address] 84025- 6751 Feb, Bulge of cervical disc without myelopathy M50.20 ; Hypertriglyceridemia E78.1 ; Hand eczema L30.9 and Hypothyroidism E03.9 [facility] [id number] [place] [address] 92692- 3688 Jan, [facility] [address] [id number] October, 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 dental examination Z01.20 [facility] [address] 84952- 4050 Sep, Generalized abdominal pain R10.84 [facility] [address] 10785- 4471 Sep, Schizoaffective disorder, bipolar type F25.0 and Generalized anxiety disorder F41.1 [facility] [address] 80360 -1430 Sep, [facility] [address] 50190 -9061 Sep, Vaginal burning N94.9 and Vaginal mitzi B37.3 [facility] [address] 10424 -3909 Sep, Gastroenteritis K52.9 [facility] [address] [address]64 -8903 Sep, Thrush B37.0 [facility] [address] [address] -[address]85 Sep, Pharyngitis due to other organism J02.[address] 68048- 9997 Sep, [facility] W[facility] [address] 27193 -5179 Aug, Cervicalgia M54.[address] 64845- 5499 Aug, Hypothyroidism E03.9 ; Dry skin L85.3 ; Plantar fasciitis, bilateral M72.2 and Other chronic pain G89.29 [facility] WALK IN [address] 54876 -2070 Aug, Abrasion T14.8 [facility] [address] [id number] Aug, Dental examination Z01.20 [facility] WALK IN [address] 22245 -0604 Aug, Excessive cerumen in right ear canal H61.21 ; Impacted cerumen of both ears 380.4 and Bronchitis J40 [facility] WALK IN [address] 42749 -4826 Jul, Bilateral impacted cerumen H61.23 and Acute non-recurrent frontal sinusitis J01.[address] 84814- 5487 May, Schizoaffective disorder, bipolar type F25.0 and Generalized anxiety disorder F41.[address] 48023- 6637 May, [facility] [address] [place] [address] 34342- 2700 May, Cervicalgia M54.2 and Hypertriglyceridemia E78.1 [facility] [id number] [place] [address] 11599- 0216 May, [facility] [id number] [place] [address] 49834- 2429 May, STD exposure Z20.2 and Well woman exam Z01.419 [facility] [id number] [place] [address] 00047- 7510 May, [facility] [id number] [place] [address] 19671- 4214 Mar, [facility] [id number] [place] [address] 74043- 4745 Dec, Pain in left knee M25.562 [facility] [id number] [place] [address] 91596- 1183 Dec, [facility] [id number] [place] [address] 02963- 0760 Nov, [facility] [id number] [place] [address] 38093- 1781 October, [facility] [address] [place] [address] 34039- 9738 Aug, [facility] [id number] [place] [address] 69176- 9086 Jul, [facility] [id number] [place] [address] 71481- 2156 17 Jul, 2015 [facility] [id number] [place] [address] 11499- 2812 10 Jul, 2015 Plantar fasciitis M72.2 and 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 [facility] [id number] [place] [address] 58655- 4507 Jul, [facility] [address] [place] [address] 07325- 3182 Jun, Plantar fasciitis M72.2 and Physical exam Z00.00 [facility] [id number] [place] [address] 30463- 4866 Jun, [facility] [id number] [place] [address] 34694- 9352 Jun, [facility] [id number] [place] [address] 91970- 8252 Jun, [facility] [id number] [place] [address] 72437- 0055 May, [facility] [id number] [place] [address] 89852- 7143 May, Hypertriglyceridemia E78.1 [facility] [id number] [place] [address] 21763- 0457 May, Hypothyroidism E03.9 ; Prediabetes R73.09 and Hypertriglyceridemia E78.1 [facility] [id number] [place] [address] 33359- 5762 May, [facility] [id number] [place] [address] 28720- 1858 May, [facility] [id number] [place] [address] 03696- 2857 May, Hypothyroidism E03.9 ; Prediabetes R73.09 and Hypertriglyceridemia E78.1 [facility] [id number] [place] [address] 06997- 0714 Apr, Schizoaffective disorder, bipolar type F25.0 [facility] [id number] [place] [address] 01045- 1386 Mar, [facility] [id number] [place] [address] 91746- 0138 Mar, [facility] [address] [place] [address] 64997- 5829 Mar, [facility] [id number] [place] [address] 79633- 6513 Feb, [facility] [id number] [place] [address] 16466- 7717 24 Feb, 2015 [facility] [id number] [place] [address] 98179- 5667 16 Feb, 2015 [facility] [id number] [place] [address] 08488- 3314 15 Feb, 2015 Screen for STD (sexually transmitted disease) V74.5 ; Counseling on other sexually transmitted diseases V65.45 ; Back pain 724.5 ; Contact with or exposure to venereal diseases V01.6 and Pelvic pain in female 625.9 [facility] [id number] [place] [address] 33988- 2719 Feb, Schizoaffective disorder, unspecified 295.70 and Anxiety state, unspecified 300.00 [facility] [id number] [place] [address] 74943- 1953 Feb, [facility] [id number] [place] [address] 79721- 7012 Feb, [facility] [id number] [place] [address] 88626- 5701 Feb, Impacted cerumen of both ears 380.4 and Mild intermittent asthma 493.90 [facility] [id number] [place] [address] 05949- 5787 Feb, [facility] [id number] [place] [address] 54834- 5915 Jan, [facility] [id number] [place] [address] 03468- 6004 Jan, [facility] [id number] [place] [address] 77931- 8641 Jan, [facility] [address] [id number] [place] [address]- 5556 Jan, [facility] [address] [id number] [place] [address]- 3704 Jan, [facility] [address] [facility] [id number] [place] [address]- 9853 Jan, [facility] [address] [id number] [place] [address]- 6172 Jan, [facility] [address] [id number] [place] [address]- 3549 Jan, [facility] [address] [facility] [id number] [place] [address]- 2908 Jan, [facility] [address] [facility] [id number] [place] [address]- 6117 Jan, [facility] [address] [facility] [id number] [address]- 0861 Jan, [facility] [address] [facility] [id number] [place] [address]- 6412 Dec, Schizoaffective disorder, unspecified 295.70 [facility] [address] [facility] [id number] [place] [address]- 5109 Dec, [facility] [address] [facility] [id number] [place] [address]- 9426 Dec, [facility] [address] [facility] [id number] [place] [address]- 6236 Dec, [facility] [address] [facility] [id number] [place] [address]- 0132 Dec, [facility] [address] [facility] [id number] [place] [address]- 1650 Dec, [facility] [address] [id number] [address] Dec, Dental examination V72.2 [facility] [address] [address]- 5366 Dec, Schizoaffective disorder, unspecified 295.70 ; Persistent disorder of initiating 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.42 and Anxiety state, unspecified 300.00 [facility] [address] [address]- 7740 Dec, [facility] [id number] [place] [address] 31180- 5600 Nov, High risk medication use V58.69 [facility] [address] [address]- 0408 Nov, [facility] [id number] [place] [address] 94051- 0728 Nov, [facility] [id number] [place] [address] 00430- 2088 Nov, High risk medication use V58.69 [facility] [address] [place] [address] 44351- 5141 Nov, [facility] [id number] [place] [address] 44786- 2346 Nov, [facility] [address] [address]- 0995 Nov, [facility] [id number] [place] [address] 12389- 3997 Nov, Hypothyroidism 244.9 ; Hypertriglyceridemia 272.1 and Prediabetes 790.29 [facility] [address] [address]- 8860 Nov, [facility] [id number] [place] [address] 81850- 2744 Nov, [facility] [address] [address]- 5173 Nov, Bulge of cervical disc without myelopathy 722.0 ; Lumbar facet arthropathy 721.3 ; Family history of stroke V17.1 ; Hyperthyroidism 242.90 and 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 long-term current use of medication V58.69 [facility] [id number] [place] [address] 078953- 3479 Nov, [facility] [id number] [place] [address] 53386- 3089 October, [facility] [id number] [place] [address] [id number]- 4918 October, [facility] [id number] [place] [address] 00422- 3283 October, [facility] [id number] [place] [address] 06944- 1594 October, [facility] [id number] [place] [address] 79877- 2773 October, [facility] [id number] [place] [address] 05067- 5589 October, [facility] [id number] [place] [address] 61795- 9371 October, Schizoaffective disorder, unspecified 295.70 and Persistent disorder of initiating 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.42 [facility] [id number] [place] [address] 03070- 1348 October, Schizoaffective disorder, unspecified 295.70 [facility] [id number] [place] [address] 41771- 8138 October, [facility] [id number] [place] [address] 13348- 6325 October, [facility] [id number] [place] [address] [id number]- 2375 October, [facility] [id number] [place] [address] 23214919- 2325 Sep, Lumbago of lumbar region with sciatica 724.2 and Neck pain 723.1 [facility] [address] [id number] [place] [address]- 5283 14 Sep, 2014 [facility] [place] [facility] [address] [id number] [place] [address]- 6976 13 Sep, 2014 [facility] [place] [facility] [address] [id number] [place] [address]- 6595 26 Aug, 2014 [facility] [place] [facility] [address] [id number] [place] [address]- 3236 26 Aug, 2014 [facility] [place] [facility] [address] [id number] [place] [address]- 0908 26 Aug, 2014 [facility] [place] [facility] [address] [id number] [place] [address]- 2022 Aug, [facility] [place] [facility] [address] [id number] [place] [address]- 4198 24 Aug, 2014 [facility] [place] [facility] [address] [id number] [place] [address]- 0277 24 Aug, 2014 [facility] [place] [facility] [address] [id number] [place] [address]- 8089 Aug, [facility] [place] [facility] [address] [id number] [place] [address]- 5659 20 Aug, 2014 [facility] [place] [facility] [address] [id number] [place] [address]- 9540 19 Aug, 2014 [facility] [place] [facility] [address] [id number] [place] [address]- 0101 19 Aug, 2014 [facility] [place] [facility] [address] [id number] [place] [address]- 4561 18 Aug, 2014 [facility] [place] [facility] [address] [id number] [place] [address]- 8533 18 Aug, 2014 [facility] [place] [facility] [address] [id number] [place] 2516 18 Aug, 2014 [facility] [place] [facility] [address] [id number] [place] [address]- 5286 Aug, [facility] [place] [facility] [address] [id number] [place] [address]- 2141 Aug, [facility] [place] [facility] [address] [id number] [place] [address]- 1610 Aug, [facility] [place] [facility] [address] [id number] [place] [address]- 0868 Aug, [facility] [place] [facility] [address] [id number] [place] [address]- 1194 Aug, [facility] [place] [facility] [address] [id number] [place] [address]- 3481 Aug, [facility] [place] [facility] [address] [id number] [place] [address]- 7725 Aug, [facility] [place] [facility] [address] [id number] [place] [address]- 3728 Aug, [facility] [place] [facility] [address] [id number] [place] [address]- 6003 Aug, [facility] [place] [facility] [address] [id number] [place] [address]- 8303 Aug, [facility] [place] [facility] [address] [id number] [place] [address]- 3412 Aug, [facility] [place] [facility] [address] [id number] [place] [address]- 4588 Aug, [facility] [place] [facility] [address] [id number] [place] [address]- 5453 Aug, [facility] [place] [facility] [address] [id number] [place] [address]- 9459 Aug, [facility] [place] [facility] [address] [id number] [place] [address] Jul, [facility] [place] [facility] [address] [id number] [place] [address] Jul, [facility] [place] [facility] [address] [id number] [place] [address] Jul, 2014 [facility] [place] [facility] [address] [id number] [place] [address] Jul, 2014 [facility] [place] [facility] [address] [id number] [place] [address] Jul, 2014 [facility] [place] [facility] [address] [id number] [place] [address] Jul, 2014 [facility] [place] [facility] [address] [id number] [place] [address] Jul, 2014 [facility] [place] [facility] [address] [id number] [place] [address] Jul, 2014 [facility] [place] [facility] [address] [facility] [id number] [place] [address] Jul, 2014 [facility] [place] [facility] [address] [id number] [place] [address] Jul, [facility] [place] [facility] [address] [id number] [place] [address] Jun, [facility] [place] [facility] [address] [id number] [place] [address] Jun, [facility] [place] [facility] [address] [id number] [place] [address] Jun, [facility] [place] [facility] [address] [id number] [place] [address] Jun, [facility] [place] [facility] [address] [id number] [place] [address] Jun, [facility] [place] [facility] [address] [id number] [place] [address] Jun, [facility] [place] [facility] [address] [id number] [place] [address] Jun, [facility] [place] [facility] [address] [id number] [place] [address] May, [facility] [place] [facility] [address] [id number] [place] [address] May, [facility] [place] [facility] [address] [id number] [place] [address] May, [facility] [place] [facility] [address] [facility] [id number] [place] [address] May, [facility] [place] [facility] [address] [id number] [place] [address] May, [facility] [place] [facility] [address] [id number] [place] [address] May, [facility] [place] [facility] [address] [id number] [place] [address] May, [facility] [place] [facility] [address] [facility] [id number] [place] [address] May, [facility] [place] [facility] [address] [id number] [place] [address] May, [facility] [place] [facility] [address] [id number] [place] [address] May, [facility] [place] [facility] [address] [facility] [id number] [place] [address] Apr, [facility] [place] [facility] [address] [id number] [place] [address] Apr, [facility] [place] [facility] [address] [id number] [place] [address] Apr, [facility] [place] [facility] [address] [id number] [place] [address] Apr, [facility] [place] [facility] [address] [id number] [place] [address] Apr, [facility] [place] [facility] [address] [facility] [id number] [place] [address] Apr, [facility] [place] [facility] [address] [id number] [place] [address] Apr, [facility] [place] [facility] [address] [id number] [place] [address] Apr, [facility] [place] [facility] [address] [id number] [place] [address] Apr, [facility] [place] [facility] [address] [id number] [place] [address] Mar, [facility] [place] [facility] [address] [id number] [place] [address] Mar, [facility] [place] [facility] [address] [id number] [place] [address] Mar, [facility] [place] [facility] [address] [id number] [place] [address] Mar, [facility] [place] [facility] [address] [id number] [place] [address] Mar, [facility] [place] [facility] [address] [id number] [place] [address] Mar, [facility] [place] [facility] [address] [id number] [place] [address] Mar, [facility] [place] [facility] [address] [id number] [place] [address] Mar, [facility] [place] [facility] [address] [id number] [place] [address]60 Mar, [facility] [place] [facility] [address] [id number] [place] [address] Mar, [facility] [place] [facility] [address] [id number] [place] [address] Feb, [facility] [place] [facility] [address] [id number] [place] [address] Feb, [facility] [place] [facility] [address] [id number] [place] [address] Feb, [facility] [place] [facility] [address] [id number] [place] [address] 98[address] Feb, [facility] [place] [facility] [address] [id number] [place] [address] Feb, [facility] [place] [facility] [address] [id number] [place] [address] Jan, [facility] [place] [facility] [address] [id number] [place] [address] Jan, [facility] [place] [facility] [address] [id number] [place] [address] Jan, [facility] [place] [facility] [address] [id number] [place] [address] Jan, [facility] [place] [facility] [address] [id number] [place] [address] Jan, [facility] [place] [facility] [address] [id number] [place] [address] 4[address] Jan, [facility] [place] [facility] [address] [id number] [place] [address] Jan, [facility] [place] [facility] [address] [id number] [place] [address]- [address]409 Jan, [facility] [place] [facility] [address] [id number] [place] [address] 0[address] Jan, [facility] [place] [facility] [address] [id number] [place] [address] Dec, [facility] [place] [facility] [address] [id number] [place] [address]80 Dec, [facility] [place] [facility] [address] [id number] [place] [address] Dec, [facility] [place] [facility] [address] [id number] [place] [address] Dec, [facility] [place] [facility] [address] [id number] [place] [address] Dec, [facility] [place] [facility] [address] [id number] [place] [address] 6683 Dec, [facility] [place] [facility] [address] [id number] [place] [address] 7[address] Dec, [facility] [place] [facility] [address] [id number] [place] [address]30 Dec, [facility] [place] [facility] [address] [id number] [place] [address] 8795 Nov, [facility] [place] [facility] [address] [id number] [place] [address] Nov, [facility] [place] [facility] [address] [id number] [place] [address]- [address] Nov, [facility] [place] [facility] [address] [id number] [place] [address] 1613 Nov, [facility] [place] [facility] [address] [id number] [place] [address]134 Nov, [facility] [place] [facility] [address] [id number] [place] [address] Nov, [facility] [place] [facility] [address] [id number] [place] [address]808 Nov, [facility] [place] [facility] [address] [id number] [place] [address] Nov, [facility] [place] [facility] [address] [id number] [place] [address]- 8980 Nov, [facility] [place] [facility] [address] [id number] [place] [address] 5429 Nov, [facility] [place] [facility] [address] [id number] [place] [address]- [address]45 Nov, [facility] [place] [facility] [address] [id number] [place] [address]- 3677 Nov, [facility] [place] [facility] [address] [id number] [place] [address] 4085 October, [facility] [place] [facility] [address] [id number] [place] [address] October, [facility] [place] [facility] [address] [id number] [place] [address] October, [facility] [place] [facility] [address] [id number] [place] [address]- 2621 October, [facility] [place] [facility] [address] [id number] [place] [address] 0209 October, [facility] [place] [facility] [address] [id number] [place] [address]- 6676 Sep, [facility] [place] [facility] [address] [id number] [place] [address]- [address]252 Sep, [facility] [place] [facility] [address] [id number] [place] [address]- 6005 Sep, [facility] [place] [facility] [address] [id number] [place] [address]- [address] Sep, [facility] [place] [facility] [address] [id number] [place] [address]- 0306 Sep, [facility] [place] [facility] [address] [id number] [place] [address]- 4659 Sep, [facility] [place] [facility] [address] [id number] [place] [address] 6[address] Sep, [facility] [place] [facility] [address] [id number] [place] [address] Sep, [facility] [place] [facility] [address] [id number] [place] [address]- 9752 Sep, [facility] [place] [facility] [address] [id number] [place] [address]- 1041 Sep, [facility] [place] [facility] [address] [id number] [place] [address]- 8354 Sep, [facility] [place] [facility] [address] [id number] [place] [address]- 9686 Sep, [facility] [place] [facility] [address] [id number] [place] [address]- 9557 Sep, [facility] [place] [facility] [address] [id number] [place] [address]- 6729 Sep, [facility] [place] [facility] [address] [id number] [place] [address]- 3898 Sep, [facility] [place] [facility] [address] [id number] [place] [address]- 6635 Sep, [facility] [place] [facility] [address] [id number] [place] [address]- 1646 Sep, [facility] [place] [facility] [address] [id number] [place] [address]- 6488 Sep, [facility] [place] [facility] [address] [id number] [place] [address]- 8189 Sep, [facility] [place] [facility] [address] [id number] [place] [address]- 5221 Aug, [facility] [place] [facility] [address] [id number] [place] [address]- 7686 Aug, [facility] [place] [facility] [address] [id number] [place] [address]- 3154 Aug, [facility] [place] [facility] [address] [id number] [place] [address]- 9838 Aug, [facility] [place] [facility] [address] [id number] [place] [address]- 5895 Jun, [facility] [place] [facility] [address] [id number] [place] [address]- 7151 Jun, [facility] [place] [facility] [address] [id number] [place] [address]- 2964 Mar, [facility] [place] [facility] [address] [id number] [address] 15 Mar, 2013 [facility] [address] [id number] [address] Nov, [facility] [id number] [address] Sep, [facility] [id number] [address] Jun, [facility] [id number] [address] Jun, [facility] [id number] [address] Apr, [facility] [id number] [address]- [address] Apr, [facility] [id number] [address]- 67[address] Apr, [facility] [id number] [address] Mar, [facility] [id number] [address]- [address] Feb, IMMUNIZATIONS No Known Immunizations SOCIAL HISTORY Never Assessed REASON FOR VISIT blood sugar issues-FABRICIO Mccauley PLAN OF CARE Activity Details Follow Up 4Weeks, 2 Weeks- nurse visit Reason:DM VITAL SIGNS Height 62 in 2018-01-10 Weight 220.3 lbs 2018-01-10 Temperature 97.8 degrees Fahrenheit 2018-01-10 Heart Rate 120 bpm 2018-01-10 Respiratory Rate 20 2018-01-10 BMI 40.29 kg/m2 2018-01-10 Blood pressure systolic 140 mmHg 2018-01-10 Blood pressure diastolic 86 mmHg 2018-01-10 MEDICATIONS Medication Instructions Dosage Frequency Start Date End Date Duration Status Atorvastatin Calcium 40 mg Orally Once a day 1 tablet 24h Sep, 30 day(s) Active MetFORMIN HCl ER 500 mg Orally twice a day for 1 week then increase to 2 tablet twice daily 1 tablet Dec, 30 days Active Haloperidol 5 mg Orally Once a day 1 tablet 24h Active Invega 9 MG Orally Once a day 1 tablet in the morning 24h Active Lancets Lancets check blood sugar 24h Dec, Active Ibuprofen 600 MG Orally Three times a day 1 tablet with food or milk as needed 8h Mar, 90 days Active Depakote ER 250 MG Active Depakote ER 10 mg Orally at bedtime 1 tablet Active Proventil HFA 108 (90 Base) MCG/ACT Inhalation every 4-6 hours as needed 2 puffs as needed Sep, Active Ranitidine HCl 150 MG Orally twice a day 1 tablet 12h Dec, 30 day(s) Active Test strips Test Strips Check blood sugar 24h Dec, Active Glucometer 1 glucometer check blood sugars Dec, Active RESULTS No Results PROCEDURES Procedure Date Ordered Result Body Site GLUCOSE BLOOD TEST January 10, 2018 INSTRUCTIONS MEDICATIONS ADMINISTERED No Known Medications [...]
--- OUTSIDE RECORDS SUMMARY | 2018-08-13 18:25 | XMS REPORT ---
Author Author CHRISTO ADELA [facility] Address [address] [place] [address] Care Team Providers Care Agriculture Sales Account Manager Name Role Phone ADELA VILLAFUERTE Unavailable PROBLEMS Type Condition ICD9-CM Code DRG91-LA Code Onset Dates Condition Status SNOMED Code Problem Schizoaffective disorder, bipolar type F25.0 Active 23093761 Problem Vaginal burning N94.9 Active 104496261 Problem Other chronic pain G89.29 Active 49244893 Problem Type 2 diabetes mellitus without complications E11.9 Active 171279699 Problem prison 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 Active 160474385 Problem Hand eczema L30.9 Active 829261750 Problem Bulging of cervical intervertebral disc M50.20 Active 984406028 Problem Type 2 diabetes mellitus without complication, without long-term current use of insulin E11.9 Active 894301444 Problem Gastroesophageal reflux disease, esophagitis presence not specified K21.9 Active 550104449 Problem Cervical dysplasia N87.9 Active 98421821 Problem Hypothyroidism E03.9 Active 74782743 Problem Hypertriglyceridemia E78.1 Active 157328804 Problem Prediabetes R73.09 Active 4197506 Problem Bulge of cervical disc without myelopathy M50.20 Active 373187778 Problem Mild intermittent asthma, uncomplicated J45.20 Active 860905837 Problem Lumbar facet arthropathy M46.96 Active 981432635 Problem Generalized anxiety disorder F41.1 Active 08970056 ALLERGIES No Information ENCOUNTERS Encounter Location Date Diagnosis [facility] [address] [facility] [id number] [address] Feb, [facility] [id number] [place] [address] 65811- 8142 Feb, Type 2 diabetes mellitus without complication, without long- term current use of insulin E11.9 ; Hypertriglyceridemia E78.1 and Gastroesophageal reflux disease, esophagitis presence not specified K21.9 [facility] [address] [facility] [id number], [place] [address] Feb, [facility] [address], [place] [address] 3143 Jan, [facility] [address], [place] [address] Jan, Type 2 diabetes mellitus without complication, without long- term current use of insulin E11.9 [facility] [address] [facility] [id number], [place] [address] Dec, [facility] [address], [place] [address] Dec, [facility] [address], [place] [address] Dec, Type 2 diabetes mellitus without complications E11.9 ; 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 and BMI 40.0-44.9, adult Z68.41 [facility] [address], [place] [address] Dec, Type 2 diabetes mellitus without complication, without long- term current use of insulin E11.9 [facility] [address], [place] [address] 3[address] Dec, [facility] [address], [place] [address] 8999 Dec, Type 2 diabetes mellitus without complication, without long- term current use of insulin E11.9 [facility] [address] [place] [id number] [address] 2511 Dec, Type 2 diabetes mellitus without complication, without long- term current use of insulin E11.9 ; Gastroesophageal reflux disease, esophagitis presence not specified K21.9 and BMI 40.0-44.9, adult Z68.41 [facility] [address] [id number] [address] Dec, [place] [address] [address] October, Dental examination Z01.20 [place] [id number] [place] [address] 31679- 0533 Sep, [place] [id number] [place] [address] 96041- 5042 Sep, Hypertriglyceridemia E78.1 [place] [address] [address]197- 7164 Sep, Hypothyroidism E03.9 ; Prediabetes R73.09 ; Mild intermittent asthma, uncomplicated J45.20 ; Bulge of cervical disc without myelopathy M50.20 ; Other chronic pain G89.29 ; Hand eczema L30.9 ; Right anterior knee pain M25.561 ; Hypertriglyceridemia E78.1 and BMI 40.0-44.9, adult Z68.41 [place] [id number] [place] [address] 51485- 4817 Sep, [place] [id number] [place] [address] 34068- 2372 Sep, [place] [id number] [place] [address] 12009- 7904 Jul, [place] [id number] [place] [address] 43306- 9395 May, Acute non-recurrent maxillary sinusitis J01.[address] [facility] [address] [place] [address] 98760 -5882 Mar, Other viral agents as the cause of diseases classified elsewhere B97.89 and Acute upper respiratory infection, unspecified J06.[address] [address]678- 4221 Mar, [place] [id number] [place] [address] 50433- 1493 Mar, Neck pain M54.[address] 53882- 2155 27 Feb, 2017 Bulge of cervical disc without myelopathy M50.20 [facility] [id number] [place] [address] 53071- 2904 22 Feb, 2017 Neck pain M54.2 [facility] [id number] [place] [address] 38452- 0979 11 Feb, 2017 [facility] [address] 49085- 0810 07 Feb, 2017 Bulge of cervical disc without myelopathy M50.20 ; Hypertriglyceridemia E78.1 ; Hand eczema L30.9 and Hypothyroidism E03.9 [place] [address] 88525- 2550 Jan, [facility] [address] [id number] October, 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 dental examination Z01.20 [place] [address] 51537- 3108 Sep, Generalized abdominal pain R10.84 [facility] [address] 10601- 9238 24 Sep, 2016 Schizoaffective disorder, bipolar type F25.0 and Generalized anxiety disorder F41.1 [facility] [id number] [place] [address] 02416 -6890 Sep, [facility] [id number] [place] [address] 59291 -7767 Sep, Vaginal burning N94.9 and Vaginal mitzi B37.3 [facility] [id number] [place] [address] 17283 -3305 Sep, Gastroenteritis K52.9 [facility] [address] [address]57 -1245 18 Sep, 2016 Thrush B37.0 [facility] [address] 88379 -5691 Sep, Pharyngitis due to other organism J02.[address] 19980- 7180 Sep, [facility] [address] 8[address]78 -6029 Aug, Cervicalgia M54.[address] 78634- 7168 Aug, Hypothyroidism E03.9 ; Dry skin L85.3 ; Plantar fasciitis, bilateral M72.2 and Other chronic pain G89.29 [facility] [address] 36604 -6279 Aug, Abrasion T14.8 [facility] [address] [id number] Aug, Dental examination Z01.20 [facility] [address] 34206 -4171 Aug, Excessive cerumen in right ear canal H61.21 ; Impacted cerumen of both ears 380.4 and Bronchitis J40 [facility] [address] 58806 -6292 Jul, Bilateral impacted cerumen H61.23 and Acute non-recurrent frontal sinusitis J01.[address] 50513- 4265 May, Schizoaffective disorder, bipolar type F25.0 and Generalized anxiety disorder F41.[address] 02210- 9158 May, [address] 11734- 5612 May, Cervicalgia M54.2 and Hypertriglyceridemia E78.[address] 43945- 5698 May, [facility] [address], [place] [address]- 5560 May, STD exposure Z20.2 and Well woman exam Z01.419 [facility] [id number] [place] [address] 71631- 5112 May, [facility] [id number] [place] [address] 16661- 4514 Mar, [facility] [id number] [place] [address] 14184- 5568 Dec, Pain in left knee M25.562 [facility] [id number] [place] [address] 83480- 0083 Dec, [facility] [id number] [place] [address] 95619- 6834 Nov, [facility] [id number] [place] [address] 67983- 4689 October, [facility] [id number] [place] [address] 83065- 7527 Aug, [facility] [id number] [place] [address] 26821- 5926 Jul, [facility] [id number] [place] [address] 86474- 8918 Jul, [facility] [id number] [place] [address] 41815- 6885 Jul, Plantar fasciitis M72.2 and 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 [facility] [id number] [place] [address] 63493- 9171 Jul, [facility] [address] [place] [address] 61747- 4877 Jun, Plantar fasciitis M72.2 and Physical exam Z00.00 [facility] [id number] [place] [address] 15318- 1385 Jun, [facility] [address], [place] [address]- 8785 Jun, [facility] [id number] [place] [address] 74708- 9862 Jun, [facility] [id number] [place] [address] 02087- 8330 May, [facility] [id number] [place] [address] 00742- 1813 May, Hypertriglyceridemia E78.1 [facility] [id number] [place] [address] 88495- 2927 May, Hypothyroidism E03.9 ; Prediabetes R73.09 and Hypertriglyceridemia E78.1 [facility] [id number] [place] [address] 93217- 1156 May, [facility] [id number] [place] [address] 92924- 7915 May, [facility] [id number] [place] [address] 25445- 5456 May, Hypothyroidism E03.9 ; Prediabetes R73.09 and Hypertriglyceridemia E78.1 [facility] [address] [place] [address] 56984- 8276 Apr, Schizoaffective disorder, bipolar type F25.0 [facility] [address] [place] [address] 28830- 7938 Mar, [facility] [address] [place] [address] 06684- 7045 Mar, [facility] [id number] [place] [address] 304619- 8326 Mar, [facility] [id number] [place] [address] 95098- 4494 Feb, [facility] [id number] [place] [address] 98309- 4291 24 Feb, 2015 [facility] [id number] [place] [address] 77303- 9689 16 Feb, 2015 [facility] [id number] [place] [address] 04821- 4823 15 Feb, 2015 Screen for STD (sexually transmitted disease) V74.5 ; Counseling on other sexually transmitted diseases V65.45 ; Back pain 724.5 ; Contact with or exposure to venereal diseases V01.6 and Pelvic pain in female 625.9 [facility] [id number] [place] [address] 62592- 6159 15 Feb, 2015 Schizoaffective disorder, unspecified 295.70 and Anxiety state, unspecified 300.00 [facility] [id number] [place] [address] 72747- 4569 14 Feb, 2015 [place] [id number] [place] [address] 30945- 5624 10 Feb, 2015 [facility] [id number] [place] [address] 93322- 6600 03 Feb, 2015 Impacted cerumen of both ears 380.4 and Mild intermittent asthma 493.90 [facility] [id number] [place] [address] 95764- 6162 Feb, [facility] [id number] [place] [address] 26252- 5386 Jan, [facility] [id number] [place] [address] 06119- 3065 Jan, [facility] [id number] [place] [address] 09458- 6036 Jan, [facility] [id number] [place] [address] 00315- 8281 Jan, [facility] [id number] [place] [address] 08172- 3937 Jan, [facility] [address] [place] [address]- 4829 Jan, [facility] [address], [place] [address]- 9859 Jan, [facility] [address], [place] [address]- 9039 Jan, [facility] [address], [place] [address]- 2121 Jan, [facility] [address] [id number], [place] [address]- 3574 Jan, [facility] [id number] [place] [address] 12824- 7367 Jan, [facility] [id number] [place] [address] 31262- 1595 Dec, Schizoaffective disorder, unspecified 295.70 [facility] [id number] [place] [address] 97685- 2995 Dec, [facility] [address] [place] [address] 30339- 2650 Dec, [facility] [address] [place] [address] 65041- 1087 Dec, [facility] [address], [place] [address]- 1315 Dec, [facility] [address], [place] [address]- 7468 Dec, [facility] [address] [address] Dec, Dental examination V72.2 [facility] [address], [place] [address]- 0624 Dec, Schizoaffective disorder, unspecified 295.70 ; Persistent disorder of initiating 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.42 and Anxiety state, unspecified 300.00 [facility] [address] [place] [address] 90726- 2536 Dec, [facility] [address] [place] [address] 55855- 4304 Nov, High risk medication use V58.69 [facility] [address] [place] [address] 73040- 3031 Nov, [facility] [id number] [place] [address] 20387- 7510 Nov, [facility] [id number] [place] [address] 62881- 5770 Nov, High risk medication use V58.69 [facility] [id number] [place] [address] 20831- 0963 Nov, [facility] [id number] [place] [address] 99732- 8093 Nov, [facility] [id number] [place] [address] 07825- 2613 Nov, [facility] [id number] [place] [address] 78524- 0934 Nov, Hypothyroidism 244.9 ; Hypertriglyceridemia 272.1 and Prediabetes 790.29 [facility] [address] [place] [address] 13455- 6433 Nov, [facility] [address] [place] [address] 98055- 8657 Nov, [facility] [id number] [place] [address] 02818- 2195 Nov, Bulge of cervical disc without myelopathy 722.0 ; Lumbar facet arthropathy 721.3 ; Family history of stroke V17.1 ; Hyperthyroidism 242.90 and 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 long-term current use of medication V58.69 [facility] [address] [place] [address] 91692- 2151 Nov, [facility] [id number] [place] [address] 28997- 2404 October, [facility] [address], [place] [address]- 6064 October, [facility] [id number] [place] [address] 17047- 3876 October, [facility] [id number] [place] [address] 82580- 6756 October, [facility] [id number] [place] [address] 109386- 4624 October, [facility] [id number] [place] [address] 74020- 7441 October, [facility] [id number] [place] [address] 85584- 0864 October, Schizoaffective disorder, unspecified 295.70 and Persistent disorder of initiating 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.42 [facility] [id number] [place] [address] 91507- 5225 October, Schizoaffective disorder, unspecified 295.70 [facility] [id number] [place] [address] 58163- 2543 October, [facility] [id number] [place] [address] 19065- 8005 October, [facility] [id number] [place] [address] 94078- 1870 October, [facility] [id number] [place] [address] 90211503- 6979 Sep, Lumbago of lumbar region with sciatica 724.2 and Neck pain 723.1 [facility] [id number] [place] [address] [id number]- 6288 Sep, [facility] [id number] [place] [address] 20382- 5805 Sep, [facility] [id number] [place] [address] 80145- 1157 26 Aug, 2014 [facility] [place] [facility] [address] [id number] [place] [address]- 2422 26 Aug, 2014 [facility] [place] [facility] [address] [id number] [place] [address]- 0462 26 Aug, 2014 [facility] [place] [facility] [address] [id number] [place] [address]- 9183 Aug, [facility] [place] [facility] [address] [id number] [place] [address]- 1783 24 Aug, 2014 [facility] [place] [facility] [address] [id number] [place] [address]- 3225 24 Aug, 2014 [facility] [place] [facility] [address] [id number] [place] [address]- 8633 Aug, [facility] [place] [facility] [address] [id number] [place] [address]- 3790 20 Aug, 2014 [facility] [place] [facility] [address] [id number] [place] [address]- 9521 19 Aug, 2014 [facility] [place] [facility] [address] [id number] [place] [address]- 3103 19 Aug, 2014 [facility] [place] [facility] [address] [id number] [place] [address]- 4356 18 Aug, 2014 [facility] [place] [facility] [address] [id number] [place] [address]- 0131 18 Aug, 2014 [facility] [place] [facility] [address] [id number] [place] [address]- 4306 18 Aug, 2014 [facility] [place] [facility] [address] [id number] [place] [address]- 9610 18 Aug, 2014 [facility] [place] [facility] [address] [id number] [place] [address]- 4503 16 Aug, 2014 [facility] [place] [facility] [address] [id number] [place] [address]- 7135 12 Aug, 2014 [facility] [place] [facility] [address] [id number] [place] [address]- 2452 12 Aug, 2014 [facility] [place] [facility] [address] [id number] [place] [address]- 8185 Aug, [facility] [place] [facility] [address] [id number] [place] [address]- 5062 Aug, [facility] [place] [facility] [address] [id number] [place] [address]- 7742 Aug, 2014 [facility] [place] [facility] [address] [id number] [place] [address]- 8734 Aug, 2014 [facility] [place] [facility] [address] [id number] [place] [address]- 2478 Aug, 2014 [facility] [place] [facility] [address] [id number] [place] [address]- 2240 Aug, [facility] [place] [facility] [address] [id number] [place] [address]- 1595 Aug, 2014 [facility] [place] [facility] [address] [id number] [place] [address]- 2577 Aug, [facility] [place] [facility] [address] [id number] [place] [address]- 3467 Aug, [facility] [place] [facility] [address] [id number] [place] [address]- 8549 Aug, [facility] [place] [facility] [address] [id number] [place] [address]- 4697 Jul, 2014 [facility] [place] [facility] [address] [id number] [place] [address] Jul, 2014 [facility] [place] [facility] [address] [id number] [place] [address] Jul, 2014 [facility] [place] [facility] [address] [id number] [place] [address] Jul, 2014 [facility] [place] [facility] [address] [id number] [place] [address] Jul, [facility] [place] [facility] [address] [id number] [place] [address] Jul, [facility] [place] [facility] [address] [id number] [place] [address] Jul, [facility] [place] [facility] [address] [id number] [place] [address] Jul, [facility] [place] [facility] [address] [id number] [place] [address] Jul, [facility] [place] [facility] [address] [id number] [place] [address] Jul, [facility] [place] [facility] [address] [id number] [place] [address] Jun, [facility] [place] [facility] [address] [id number] [place] [address] Jun, [facility] [place] [facility] [address] [id number] [place] [address] Jun, [facility] [place] [facility] [address] [id number] [place] [address] Jun, [facility] [place] [facility] [address] [id number] [place] [address] Jun, [facility] [place] [facility] [address] [id number] [place] [address] Jun, [facility] [place] [facility] [address] [id number] [place] [address] Jun, [facility] [place] [facility] [address] [id number] [place] [address] May, [facility] [place] [facility] [address] [id number] [place] [address] May, [facility] [place] [facility] [address] [id number] [place] [address] May, [facility] [place] [facility] [address] [id number] [place] [address] 05 May, 2014 [facility] [place] [facility] [address] [id number] [place] [address] May, [facility] [place] [facility] [address] [id number] [place] [address] May, [facility] [place] [facility] [address] [id number] [place] [address] May, [facility] [place] [facility] [address] [id number] [place] [address] May, [facility] [place] [facility] [address] [id number] [place] [address] May, [facility] [place] [facility] [address] [id number] [place] [address] May, [facility] [place] [facility] [address] [id number] [place] [address] Apr, [facility] [place] [facility] [address] [id number] [place] [address] Apr, [facility] [place] [facility] [address] [id number] [place] [address] Apr, [facility] [place] [facility] [address] [id number] [place] [address] Apr, [facility] [place] [facility] [address] [id number] [place] [address] Apr, [facility] [place] [facility] [address] [id number] [place] [address] Apr, [facility] [place] [facility] [address] [id number] [place] [address] Apr, [facility] [place] [facility] [address] [id number] [place] [address] Apr, [facility] [place] [facility] [address] [id number] [place] [address] Apr, [facility] [place] [facility] [address] [id number] [place] [address] Mar, [facility] [place] [facility] [address] [id number] [place] [address] Mar, [facility] [place] [facility] [address] [id number] [place] [place] [address] Mar, [facility] [place] [facility] [address] [id number] [place] [address] Mar, [facility] [place] [facility] [address] [id number] [place] [address] Mar, [facility] [place] [facility] [address] [id number] [place] [address] Mar, [facility] [place] [facility] [address] [id number] [place] [address] Mar, [facility] [place] [facility] [address] [id number] [place] [address] Mar, [facility] [place] [facility] [address] [id number] [place] [address] Mar, [facility] [place] [facility] [address] [id number] [place] [address] 8380 Mar, [facility] [place] [facility] [address] [id number] [place] [address] Feb, [facility] [place] [facility] [address] [id number], [place] [address] Feb, [facility] [place] [facility] [address] [id number] [place] [address] 19 Feb, 2014 [facility] [place] [facility] [address] [id number] [place] [address] 79[address] Feb, [facility] [place] [facility] [address] [id number] [place] [address] Feb, [facility] [place] [facility] [address] [id number] [place] [address] Jan, [facility] [place] [facility] [address] [id number] [place] [address] Jan, [facility] [place] [facility] [address] [id number] [place] [address]- [address] Jan, [facility] [place] [facility] [address] [id number] [place] [address]- [address]101 Jan, [facility] [place] [facility] [address] [id number] [place] [address]- 8868 Jan, [facility] [place] [facility] [address] [id number] [place] [address]- 65[address] Jan, [facility] [place] [facility] [address] [id number] [place] [address] Jan, [facility] [place] [facility] [address] [id number] [place] [address]- [address]277 Jan, [facility] [place] [facility] [address] [id number] [place] [address]- [address] Jan, [facility] [place] [facility] [address] [id number] [place] [address]- [address]684 Dec, [facility] [place] [facility] [address] [id number] [place] [address]- 5768 Dec, [facility] [place] [facility] [address] [id number] [place] [address]- [address]357 Dec, [facility] [place] [facility] [address] [id number] [place] [address]- 9667 Dec, [facility] [place] [facility] [address] [id number] [place] [address]- [address]101 Dec, [facility] [place] [facility] [address] [id number] [place] [address]- 1521 Dec, [facility] [place] [facility] [address] [id number] [place] [address] Dec, [facility] [place] [facility] [address] [id number] [place] [address]- [address]286 Dec, [facility] [place] [facility] [address] [id number] [place] [address]- 6532 Nov, [facility] [place] [facility] [address] [id number] [place] [address]- 3905 Nov, [facility] [place] [facility] [address] [id number] [place] [address]- [address]100 Nov, [facility] [place] [facility] [address] [id number] [place] [address]- 3542 Nov, [facility] [place] [facility] [address] [id number] [place] [address]- 2828 Nov, [facility] [place] [facility] [address] [id number] [place] [address]- 5260 Nov, [facility] [place] [facility] [address] [id number] [place] [address]- 3513 Nov, [facility] [place] [facility] [address] [id number] [place] [address]- 0712 Nov, [facility] [place] [facility] [address] [id number] [place] [address]- 8993 Nov, [facility] [place] [facility] [address] [id number] [place] [address]- 4369 Nov, [facility] [place] [facility] [address] [id number] [place] [address]- 7456 Nov, [facility] [place] [facility] [address] [id number] [place] [address]- [address]207 Nov, [facility] [place] [facility] [address] [id number] [place] [address]- 7455 October, [facility] [place] [facility] [address] [id number] [place] [address]- 9688 October, [facility] [place] [facility] [address] [id number] [place] [address] 1303 October, [facility] [address] [id number] [place] [address]- 2219 October, [facility] [place] [facility] [address] [id number] [place] [address]- 1995 October, [facility] [place] [facility] [address] [id number] [place] [address]- [address]16 Sep, [facility] [place] [facility] [address] [id number] [place] [address]- 5939 Sep, [facility] [place] [facility] [address] [id number] [place] [address]- 8197 Sep, [facility] [place] [facility] [address] [id number] [place] [address]- 1469 Sep, [facility] [place] [facility] [address] [id number] [place] [address]- [address] Sep, [facility] [place] [facility] [address] [id number] [place] [address]- 7902 Sep, [facility] [place] [facility] [address] [id number] [place] [address]- 0349 Sep, [facility] [place] [facility] [address] [id number] [place] [address]- 8402 Sep, [facility] [place] [facility] [address] [id number] [place] [address]- 1496 Sep, [facility] [place] [facility] [address] [id number] [place] [address]- 3299 Sep, [facility] [place] [facility] [address] [id number] [place] [address]- 1852 Sep, [facility] [place] [facility] [address] [id number] [place] [address]- 2269 Sep, [facility] [place] [facility] [address] [id number] [place] [address]- 0255 Sep, [facility] [place] [facility] [address] [id number] [place] [address]- 0749 Sep, [facility] [place] [facility] [address] [id number] [place] [address]- 4995 Sep, [facility] [place] [facility] [address] [id number] [place] [address]- 7855 Sep, [facility] [place] [facility] [address] [id number] [place] [address]- 5221 Sep, [facility] [place] [facility] [address] [id number] [place] [address]- 5911 Sep, [facility] [place] [facility] [address] [id number] [place] [address]- 1620 Sep, [facility] [place] [facility] [address] [id number] [place] [address]- 8060 Aug, [facility] [place] [facility] [address] [id number] [place] [address]- 3900 Aug, [facility] [place] [facility] [address] [id number] [place] [address]- 5263 Aug, [facility] [place] [facility] [address] [id number] [place] [address]- 6773 Aug, [facility] [place] [facility] [address] [id number] [place] [address]- 8920 Jun, [facility] [place] [facility] [address] [id number] [place] [address]- 2150 Jun, [facility] [place] [facility] [address] [id number] [place] [address]- 7888 Mar, [facility] [place] [facility] [address] [id number] [place] [address] Mar, [facility] [place] [facility] [address] [id number] [place] [address]- 7511 Nov, [facility] [place] [facility] [address] [id number] [place] [address]- 0344 Sep, [facility] [address] [id number] [address] Jun, [facility] [id number] [address] Jun, [facility] [id number], [place] [address] Apr, [facility] [id number], [place] [address] Apr, [facility] [id number], [place] [address] Apr, [facility] [id number], [place] [address]- [address] Mar, [facility] [id number], [place] [address]141 Feb, IMMUNIZATIONS No Known Immunizations SOCIAL HISTORY [...]
--- OUTSIDE RECORDS SUMMARY | 2018-08-13 18:25 | XMS REPORT ---
Author Author CHRISTO ADELA [facility] Address [address] [place] [address] Care Team Providers Care Computer Instructor Name Role Phone ADELA VILLAFUERTE Unavailable PROBLEMS Type Condition ICD9-CM Code ALR94-GT Code Onset Dates Condition Status SNOMED Code Problem Schizoaffective disorder, bipolar type F25.0 Active 63232654 Problem Vaginal burning N94.9 Active 438748447 Problem Other chronic pain G89.29 Active 65585756 Problem Type 2 diabetes mellitus without complications E11.9 Active 857773215 Problem MCC 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 Active 197352560 Problem Hand eczema L30.9 Active 255404914 Problem Bulging of cervical intervertebral disc M50.20 Active 770687680 Problem Type 2 diabetes mellitus without complication, without long-term current use of insulin E11.9 Active 741017267 Problem Gastroesophageal reflux disease, esophagitis presence not specified K21.9 Active 299248383 Problem Cervical dysplasia N87.9 Active 43954909 Problem Hypothyroidism E03.9 Active 00172230 Problem Hypertriglyceridemia E78.1 Active 773137891 Problem Prediabetes R73.09 Active 6210944 Problem Bulge of cervical disc without myelopathy M50.20 Active 401295260 Problem Mild intermittent asthma, uncomplicated J45.20 Active 070669535 Problem Lumbar facet arthropathy M46.96 Active 030765272 Problem Generalized anxiety disorder F41.1 Active 52982709 ALLERGIES No Information ENCOUNTERS Encounter Location Date Diagnosis [facility] [address] [facility] [id number], [place] [address] Feb, [facility] [id number] [place] [address] 73592- 0860 Feb, Type 2 diabetes mellitus without complication, without long- term current use of insulin E11.9 ; Hypertriglyceridemia E78.1 and Gastroesophageal reflux disease, esophagitis presence not specified K21.9 [facility] [address] [facility] [id number], [place] [address] Feb, [facility] [address] [address] 5[address] Jan, [facility] [address] [address] 42[address] Jan, Type 2 diabetes mellitus without complication, without long- term current use of insulin E11.9 [facility] [address] [facility] [id number], [place] [address] Dec, [facility] [address] [address] Dec, [facility] [address] [address] 8841 Dec, Type 2 diabetes mellitus without complications E11.9 ; 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 and BMI 40.0-44.9, adult Z68.41 [facility] [address] [address] Dec, Type 2 diabetes mellitus without complication, without long- term current use of insulin E11.9 [facility] [address] [address] 2[address] Dec, [facility] [address] [address] 3610 Dec, Type 2 diabetes mellitus without complication, without long- term current use of insulin E11.9 [facility] [address] [id number] [address] 00[address] Dec, Type 2 diabetes mellitus without complication, without long- term current use of insulin E11.9 ; Gastroesophageal reflux disease, esophagitis presence not specified K21.9 and BMI 40.0-44.9, adult Z68.41 [facility] [address] [id number] [address] Dec, [place] [id number] [id number] October, Dental examination Z01.20 [place] [id number] [place] [address] 96978- 9271 Sep, [place] [id number] [place] [address] 01763- 8214 Sep, Hypertriglyceridemia E78.1 [place] [address] [address]- 8971 Sep, Hypothyroidism E03.9 ; Prediabetes R73.09 ; Mild intermittent asthma, uncomplicated J45.20 ; Bulge of cervical disc without myelopathy M50.20 ; Other chronic pain G89.29 ; Hand eczema L30.9 ; Right anterior knee pain M25.561 ; Hypertriglyceridemia E78.1 and BMI 40.0-44.9, adult Z68.41 [place] [id number] [place] [address] 75254- 3735 Sep, [place] [id number] [place] [address] 80893- 3760 Sep, [place] [id number] [place] [address] 21521- 6973 Jul, [place] [id number] [place] [address] 04883- 5906 May, Acute non-recurrent maxillary sinusitis J01.00 [facility] [id number] [place] [address] 68776 -5224 Mar, Other viral agents as the cause of diseases classified elsewhere B97.89 and Acute upper respiratory infection, unspecified J06.[address] [address]- 3529 Mar, [place] [id number] [place] [address] 87567- 8218 Mar, Neck pain M54.[address] 28336- 9302 27 Feb, 2017 Bulge of cervical disc without myelopathy M50.20 [facility] [id number] [place] [address] 26893- 8364 22 Feb, 2017 Neck pain M54.2 [facility] [id number] [place] [address] 38613- 8622 11 Feb, 2017 [facility] [address] 46785- 1203 07 Feb, 2017 Bulge of cervical disc without myelopathy M50.20 ; Hypertriglyceridemia E78.1 ; Hand eczema L30.9 and Hypothyroidism E03.9 [place] [address] 92533- 3175 Jan, [facility] [address] [id number] October, 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 dental examination Z01.20 [place] [address] 65358- 6858 Sep, Generalized abdominal pain R10.84 [facility] [address] 84778- 2412 24 Sep, 2016 Schizoaffective disorder, bipolar type F25.0 and Generalized anxiety disorder F41.1 [facility] [id number] [place] [address] 58239 -6574 Sep, [facility] [id number] [place] [address] 87598 -6610 Sep, Vaginal burning N94.9 and Vaginal mitzi B37.3 [facility] [id number] [place] [address] 65564 -2617 Sep, Gastroenteritis K52.9 [facility] [address] 9[address]65 -7492 18 Sep, 2016 Thrush B37.0 [facility] N [address] 57603 -7742 Sep, Pharyngitis due to other organism J02.[address] 38344- 2304 Sep, [facility] [address] [address] Aug, Cervicalgia M54.[address] 9[address]01- 6315 Aug, Hypothyroidism E03.9 ; Dry skin L85.3 ; Plantar fasciitis, bilateral M72.2 and Other chronic pain G89.29 [facility] [address] [address]894 Aug, Abrasion T14.8 [facility] [address] [id number] Aug, Dental examination Z01.20 [facility] [address] [address]8 [address]64 Aug, Excessive cerumen in right ear canal H61.21 ; Impacted cerumen of both ears 380.4 and Bronchitis J40 [facility] [address] [address] -[address] Jul, Bilateral impacted cerumen H61.23 and Acute non-recurrent frontal sinusitis J01.[address] 80236- 2430 May, Schizoaffective disorder, bipolar type F25.0 and Generalized anxiety disorder F41.[address] 77814- 9573 May, [address] 72748- 2526 May, Cervicalgia M54.2 and Hypertriglyceridemia E78.[address] 05403- 7754 May, [facility] [address], [place] [address]- 5672 May, STD exposure Z20.2 and Well woman exam Z01.419 [facility] [id number] [place] [address] 58578- 3457 May, [facility] [id number] [place] [address] 66586- 1674 Mar, [facility] [id number] [place] [address] 74158- 6539 Dec, Pain in left knee M25.562 [facility] [id number] [place] [address] 76351- 0116 Dec, [facility] [id number] [place] [address] 74376- 4075 Nov, [facility] [id number] [place] [address] 41762- 9819 October, [facility] [id number] [place] [address] 40539- 8064 Aug, [facility] [id number] [place] [address] 86054- 9605 Jul, [facility] [id number] [place] [address] 85350- 5288 Jul, [facility] [id number] [place] [address] 47786- 3309 Jul, Plantar fasciitis M72.2 and 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 [facility] [id number] [place] [address] 96269- 6324 Jul, [facility] [id number] [place] [address] 14660- 3820 Jun, Plantar fasciitis M72.2 and Physical exam Z00.00 [facility] [id number] [place] [address] 67979- 1963 Jun, [facility] [address] [address]- 9755 Jun, [facility] [id number] [place] [address] 03394- 8363 Jun, [facility] [id number] [place] [address] 35709- 3282 May, [facility] [id number] [place] [address] 87258- 5698 May, Hypertriglyceridemia E78.1 [facility] [id number] [place] [address] 12538- 8857 May, Hypothyroidism E03.9 ; Prediabetes R73.09 and Hypertriglyceridemia E78.1 [facility] [id number] [place] [address] 62265- 5574 May, [facility] [id number] [place] [address] 21508- 9403 May, [facility] [id number] [place] [address] 24646- 2603 May, Hypothyroidism E03.9 ; Prediabetes R73.09 and Hypertriglyceridemia E78.1 [facility] [address] [place] [address] 88482- 9542 Apr, Schizoaffective disorder, bipolar type F25.0 [facility] [address] [place] [address] 04732- 8679 Mar, [facility] [address] [place] [address] 40155- 9041 Mar, [facility] [id number] [place] [address] 710657- 4699 Mar, [facility] [id number] [place] [address] 55763- 0505 Feb, [facility] [id number] [place] [address] 14493- 9310 24 Feb, 2015 [facility] [id number] [place] [address] 92721- 7727 16 Feb, 2015 [facility] [id number] [place] [address] 03089- 4953 15 Feb, 2015 Screen for STD (sexually transmitted disease) V74.5 ; Counseling on other sexually transmitted diseases V65.45 ; Back pain 724.5 ; Contact with or exposure to venereal diseases V01.6 and Pelvic pain in female 625.9 [facility] [id number] [place] [address] 40264- 1654 15 Feb, 2015 Schizoaffective disorder, unspecified 295.70 and Anxiety state, unspecified 300.00 [facility] [id number] [place] [address] 89186- 7003 14 Feb, 2015 [place] [id number] [place] [address] 14484- 3659 10 Feb, 2015 [facility] [id number] [place] [address] 13866- 9882 03 Feb, 2015 Impacted cerumen of both ears 380.4 and Mild intermittent asthma 493.90 [facility] [id number] [place] [address] 29576- 3867 Feb, [facility] [id number] [place] [address] 27112- 0837 Jan, [facility] [id number] [place] [address] 06633- 8390 Jan, [facility] [id number] [place] [address] 69394- 0479 Jan, [facility] [id number] [place] [address] 25376- 2747 Jan, [facility] [id number] [place] [address] 34483- 8671 Jan, [facility] [address] [place] [address]- 2920 Jan, [facility] [address], [place] [address]- 5017 Jan, [facility] [address], [place] [address]- 1744 Jan, [facility] [address], [place] [address]- 6557 Jan, [facility] [id number] [address]- 3458 Jan, [facility] [id number] [place] [address] 80718- 6472 Jan, [facility] [id number] [place] [address] 28021- 4043 Dec, Schizoaffective disorder, unspecified 295.70 [facility] [id number] [place] [address] 42494- 3270 Dec, [facility] [address] [place] [address] 69422- 2873 Dec, [facility] [address] [place] [address] 80609- 6334 Dec, [facility] [address], [place] [address]- 9598 Dec, [facility] [address], [place] [address]- 1671 Dec, [facility] [address] [id number] Dec, Dental examination V72.2 [facility] [address], [place] [address]- 3568 Dec, Schizoaffective disorder, unspecified 295.70 ; Persistent disorder of initiating 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.42 and Anxiety state, unspecified 300.00 [facility] [address] [place] [address] 23775- 0878 Dec, [facility] [address] [place] [address] 96794- 8359 Nov, High risk medication use V58.69 [facility] [address] [place] [address] 09310- 8191 Nov, [facility] [id number] [place] [address] 12738- 6069 Nov, [facility] [id number] [place] [address] 33883- 1515 Nov, High risk medication use V58.69 [facility] [id number] [place] [address] 72530- 3007 Nov, [facility] [id number] [place] [address] 78676- 8677 Nov, [facility] [id number] [place] [address] 17769- 1762 Nov, [facility] [id number] [place] [address] 37948- 5084 Nov, Hypothyroidism 244.9 ; Hypertriglyceridemia 272.1 and Prediabetes 790.29 [facility] [address] [place] [address] 93621- 1502 Nov, [facility] [address] [place] [address] 73000- 7162 Nov, [facility] [id number] [place] [address] 76638- 2203 Nov, Bulge of cervical disc without myelopathy 722.0 ; Lumbar facet arthropathy 721.3 ; Family history of stroke V17.1 ; Hyperthyroidism 242.90 and 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 long-term current use of medication V58.69 [facility] [address] [place] [address] 68811- 6799 Nov, [facility] [id number] [place] [address] 12759- 9774 October, [facility] [address], [place] [address]- 5300 October, [facility] [id number] [place] [address] 26408- 8614 October, [facility] [id number] [place] [address] 52337- 9122 October, [facility] [id number] [place] [address] 722414- 0655 October, [facility] [id number] [place] [address] 90441- 2761 October, [facility] [id number] [place] [address] 80665- 7274 October, Schizoaffective disorder, unspecified 295.70 and Persistent disorder of initiating 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.42 [facility] [id number] [place] [address] 12600- 5342 October, Schizoaffective disorder, unspecified 295.70 [facility] [id number] [place] [address] 56891- 6935 October, [facility] [id number] [place] [address] 84817- 0389 October, [facility] [id number] [place] [address] 63628- 2837 October, [facility] [id number] [place] [address] [id number]- 0456 Sep, Lumbago of lumbar region with sciatica 724.2 and Neck pain 723.1 [facility] [id number] [place] [address] 05946698- 6140 Sep, [facility] [id number] [place] [address] 65893- 8017 Sep, [facility] [id number] [place] [address] 73370- 5840 26 Aug, 2014 [facility] [place] [facility] [address] [id number] [place] [address]- 7571 26 Aug, 2014 [facility] [place] [facility] [address] [id number] [place] [address]- 8225 26 Aug, 2014 [facility] [place] [facility] [address] [id number] [place] [address]- 0734 Aug, [facility] [place] [facility] [address] [id number] [place] [address]- 7471 24 Aug, 2014 [facility] [place] [facility] [address] [id number] [place] [address]- 1894 24 Aug, 2014 [facility] [place] [facility] [address] [id number] [place] [address]- 2328 Aug, [facility] [place] [facility] [address] [id number] [place] [address]- 5545 20 Aug, 2014 [facility] [place] [facility] [address] [id number] [place] [address]- 0150 19 Aug, 2014 [facility] [place] [facility] [address] [id number] [place] [address]- 2840 19 Aug, 2014 [facility] [place] [facility] [address] [id number] [place] [address]- 2704 18 Aug, 2014 [facility] [place] [facility] [address] [id number] [place] [address]- 4144 18 Aug, 2014 [facility] [place] [facility] [address] [id number] [place] [address]- 1362 18 Aug, 2014 [facility] [place] [facility] [address] [id number] [place] [address]- 4161 18 Aug, 2014 [facility] [place] [facility] [address] [id number] [place] [address]- 8528 16 Aug, 2014 [facility] [place] [facility] [address] [id number] [place] [address]- 3671 12 Aug, 2014 [facility] [place] [facility] [address] [id number] [place] [address]- 9506 12 Aug, 2014 [facility] [place] [facility] [address] [id number] [place] [address]- 0483 Aug, [facility] [place] [facility] [address] [id number] [place] [address]- 7152 Aug, [facility] [place] [facility] [address] [id number] [place] [address]- 5472 Aug, 2014 [facility] [place] [facility] [address] [id number] [place] [address]- 1336 Aug, 2014 [facility] [place] [facility] [address] [id number] [place] [address]- 5464 Aug, 2014 [facility] [place] [facility] [address] [id number] [place] [address]- 0963 Aug, [facility] [place] [facility] [address] [id number] [place] [address]- 5541 Aug, 2014 [facility] [place] [facility] [address] [id number] [place] [address]- 2594 Aug, [facility] [place] [facility] [address] [id number] [place] [address]- 2241 Aug, [facility] [place] [facility] [address] [id number] [place] [address]- 9441 Aug, [facility] [place] [facility] [address] [id number] [place] [address]- 1325 Jul, 2014 [facility] [place] [facility] [address] [id number] [place] [address]- 3329 Jul, 2014 [facility] [place] [facility] [address] [id number] [place] [address]- 1337 Jul, 2014 [facility] [place] [facility] [address] [id number] [place] [address]- 3297 Jul, 2014 [facility] [place] [facility] [address] [id number] [place] [address]- 3339 Jul, [facility] [place] [facility] [address] [id number] [place] 6055 Jul, [facility] [place] [facility] [address] [id number] [place] [address]- 2696 Jul, [facility] [place] [facility] [address] [id number] [place] [address]- 4875 Jul, [facility] [place] [facility] [address] [id number] [place] [address]- 1490 Jul, [facility] [place] [facility] [address] [id number] [place] [address]- 6034 Jul, [facility] [place] [facility] [address] [id number] [place] [address] Jun, [facility] [place] [facility] [address] [id number] [place] [address] Jun, [facility] [place] [facility] [address] [id number] [place] [address] Jun, [facility] [place] [facility] [address] [id number] [place] [address] Jun, [facility] [place] [facility] [address] [id number] [place] [address] Jun, [facility] [place] [facility] [address] [id number] [place] [address] Jun, [facility] [place] [facility] [address] [id number] [place] [address] Jun, [facility] [place] [facility] [address] [id number] [place] [address] May, [facility] [place] [facility] [address] [id number] [place] [address] May, [facility] [place] [facility] [address] [id number] [place] [address] May, [facility] [place] [facility] [address] [id number] [place] [address] 05 May, 2014 [facility] [place] [facility] [address] [id number] [place] [address] May, [facility] [place] [facility] [address] [id number] [place] [address] May, [facility] [place] [facility] [address] [id number] [place] [address] May, [facility] [place] [facility] [address] [id number] [place] [address] May, [facility] [place] [facility] [address] [id number] [place] [address] May, [facility] [place] [facility] [address] [id number] [place] [address] May, [facility] [place] [facility] [address] [id number] [place] [address] Apr, [facility] [place] [facility] [address] [id number] [place] [address] Apr, [facility] [place] [facility] [address] [id number] [place] [address] Apr, [facility] [place] [facility] [address] [id number] [place] [address] Apr, [facility] [place] [facility] [address] [id number] [place] [address] Apr, [facility] [place] [facility] [address] [id number] [place] [address] Apr, [facility] [place] [facility] [address] [id number] [place] [address] Apr, [facility] [place] [facility] [address] [id number] [place] [address] Apr, [facility] [place] [facility] [address] [id number] [place] [address] Apr, [facility] [place] [facility] [address] [id number] [place] [address] Mar, [facility] [place] [facility] [address] [id number] [place] [address] Mar, [facility] [place] [facility] [address] [id number] [place] [address] Mar, [facility] [place] [facility] [address] [id number] [place] [address] Mar, [facility] [place] [facility] [address] [id number] [place] [address] Mar, [facility] [place] [facility] [address] [id number] [place] [address] Mar, [facility] [place] [facility] [address] [id number] [place] [address] Mar, [facility] [place] [facility] [address] [id number] [place] [address] Mar, [facility] [place] [facility] [address] [id number] [place] [address] Mar, [facility] [place] [facility] [address] [id number] [place] [address] Mar, [facility] [place] [facility] [address] [id number] [place] [address] Feb, [facility] [place] [facility] [address] [id number], [place] [address] Feb, [facility] [place] [facility] [address] [id number] [place] [address] 19 Feb, 2014 [facility] [place] [facility] [address] [id number] [place] [address] Feb, [facility] [place] [facility] [address] [id number] [place] [address] Feb, [facility] [place] [facility] [address] [id number] [place] [address]165 Jan, [facility] [place] [facility] [address] [id number] [place] [address] Jan, [facility] [place] [facility] [address] [id number] [place] [address] Jan, [facility] [place] [facility] [address] [id number] [place] [address]- [address] Jan, [facility] [place] [facility] [address] [id number] [place] [address] 9068 Jan, [facility] [place] [facility] [address] [id number] [place] [address] 2968 Jan, [facility] [place] [facility] [address] [id number] [place] [address] Jan, [facility] [place] [facility] [address] [id number] [place] [address] Jan, [facility] [place] [facility] [address] [id number] [place] [address] 49[address] Jan, [facility] [place] [facility] [address] [id number] [place] [address]- [address] Dec, [facility] [place] [facility] [address] [id number] [place] [address]- [address]162 Dec, [facility] [place] [facility] [address] [id number] [place] [address] Dec, [facility] [place] [facility] [address] [id number] [place] [address]- 6315 Dec, [facility] [place] [facility] [address] [id number] [place] [address]- 1039 Dec, [facility] [place] [facility] [address] [id number] [place] [address]- [address]852 Dec, [facility] [place] [facility] [address] [id number] [place] [address] Dec, [facility] [place] [facility] [address] [id number] [place] [address]- 8950 Dec, [facility] [place] [facility] [address] [id number] [place] [address]- [address]686 Nov, [facility] [place] [facility] [address] [id number] [place] [address]- [address]261 Nov, [facility] [place] [facility] [address] [id number] [place] [address]- 8419 Nov, [facility] [place] [facility] [address] [id number] [place] [address] Nov, [facility] [place] [facility] [address] [id number] [place] [address]- [address] Nov, [facility] [place] [facility] [address] [id number] [place] [address]- 4218 Nov, [facility] [place] [facility] [address] [id number] [place] [address]- 8834 Nov, [facility] [place] [facility] [address] [id number] [place] [address]- 6[address] Nov, [facility] [place] [facility] [address] [id number] [place] [address]- 58[address] Nov, [facility] [place] [facility] [address] [id number] [place] [address] 64[address] Nov, [facility] [place] [facility] [address] [id number] [place] [address]- 4255 Nov, [facility] [place] [facility] [address] [id number] [place] [address] 9967 Nov, [facility] [place] [facility] [address] [id number] [place] [address] October, [facility] [place] [facility] [address] [id number] [place] [address]- 3559 October, [facility] [place] [facility] [address] [id number] [place] [address]- 4307 October, [facility] [address] [id number] [place] [address]- 7965 October, [facility] [place] [facility] [address] [id number] [place] [address] 1849 October, [facility] [place] [facility] [address] [id number] [place] [address]- [address]887 Sep, [facility] [place] [facility] [address] [id number] [place] [address]- 5565 Sep, [facility] [place] [facility] [address] [id number] [place] [address]- 0777 Sep, [facility] [place] [facility] [address] [id number] [place] [address]- 2647 Sep, [facility] [place] [facility] [address] [id number] [place] [address]- 5967 Sep, [facility] [place] [facility] [address] [id number] [place] [address]- 9116 Sep, [facility] [place] [facility] [address] [id number] [place] [address]- 6342 Sep, [facility] [place] [facility] [address] [id number] [place] [address]- 4950 Sep, [facility] [place] [facility] [address] [id number] [place] [address]- 4813 Sep, [facility] [place] [facility] [address] [id number] [place] [address]- 9995 Sep, [facility] [place] [facility] [address] [id number] [place] [address]- 1551 Sep, [facility] [place] [facility] [address] [id number] [place] [address]- 1729 Sep, [facility] [place] [facility] [address] [id number] [place] [address]- 1777 Sep, [facility] [place] [facility] [address] [id number] [place] [address]- 5961 Sep, [facility] [place] [facility] [address] [id number] [place] [address]- 4587 Sep, [facility] [place] [facility] [address] [id number] [place] [address]- 0817 Sep, [facility] [place] [facility] [address] [id number] [place] [address]- 1452 Sep, [facility] [place] [facility] [address] [id number] [place] [address]- 6327 Sep, [facility] [place] [facility] [address] [id number] [place] [address]- 4959 Sep, [facility] [place] [facility] [address] [id number] [place] [address]- 1158 Aug, [facility] [place] [facility] [address] [id number] [place] [address]- 7051 Aug, [facility] [place] [facility] [address] [id number] [place] [address]- 0877 Aug, [facility] [place] [facility] [address] [id number] [place] [address]- 6[address] Aug, [facility] [place] [facility] [address] [id number] [place] [address]- 9450 Jun, [facility] [place] [facility] [address] [id number] [place] [address]- 4225 Jun, [facility] [place] [facility] [address] [id number] [place] [address]- 2244 Mar, [facility] [place] [facility] [address] [id number] [place] [address] Mar, [facility] [place] [facility] [address] [id number] [place] [address]- 9240 Nov, [facility] [place] [facility] [address] [id number] [place] [address]- 7737 Sep, [facility] [address] [facility] [id number], [place] [address] Jun, [facility] [address] [id number], [place] [address] Jun, [facility] [address] [id number], [place] [address] Apr, [facility] [id number] [address] Apr, [facility] [address] [id number], [place] [address] Apr, [facility] [address] [id number], [place] [address] Mar, [facility] [id number], [place] [address] Feb, IMMUNIZATIONS No Known Immunizations SOCIAL HISTORY Never Assessed REASON FOR VISIT Pen needle rx PLAN OF CARE VITAL SIGNS MEDICATIONS Medication Instructions Dosage Frequency Start Date End Date Duration Status Pen [place] 32G X 4 MM as directed Dec, Active RESULTS No Results PROCEDURES No [...]
--- OUTSIDE RECORDS SUMMARY | 2018-08-13 18:26 | XMS REPORT ---
Author Author CHAS OLIVIER [facility] Address [address] [place] [address] Care Team Providers Care Doorperson Or Luggage Porter Name Role Phone CHAS OLIVIER Unavailable PROBLEMS Type Condition ICD9-CM Code AMI79-RS Code Onset Dates Condition Status SNOMED Code Problem Schizoaffective disorder, bipolar type F25.0 Active 70417261 Problem Vaginal burning N94.9 Active 225175390 Problem Other chronic pain G89.29 Active 03625812 Problem Type 2 diabetes mellitus without complications E11.9 Active 143822393 Problem jail 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 Active 474128597 Problem Hand eczema L30.9 Active 420499682 Problem Bulging of cervical intervertebral disc M50.20 Active 361481032 Problem Type 2 diabetes mellitus without complication, without long-term current use of insulin E11.9 Active 043719770 Problem Gastroesophageal reflux disease, esophagitis presence not specified K21.9 Active 945248008 Problem Cervical dysplasia N87.9 Active 69947535 Problem Hypothyroidism E03.9 Active 80003088 Problem Hypertriglyceridemia E78.1 Active 390273815 Problem Prediabetes R73.09 Active 3119385 Problem Bulge of cervical disc without myelopathy M50.20 Active 063613821 Problem Mild intermittent asthma, uncomplicated J45.20 Active 311926485 Problem Lumbar facet arthropathy M46.96 Active 674153350 Problem Generalized anxiety disorder F41.1 Active 98774638 ALLERGIES No Information ENCOUNTERS Encounter Location Date Diagnosis [facility] [address] [facility] [id number] [address] Feb, Type 2 diabetes mellitus without complication, without long- term current use of insulin E11.9 ; Hypertriglyceridemia E78.1 and Gastroesophageal reflux disease, esophagitis presence not specified K21.9 [facility] [address] [facility] [id number] [address] Feb, [place] [id number] [place] [address] 76913- 2622 Jan, [place] [address] [place] [id number] [place] [address] 13907- 1388 Jan, Type 2 diabetes mellitus without complication, without long- term current use of insulin E11.9 [place] [address] [place] [id number] [place] [address] 11303- 0941 Dec, [place] [address] [place] [id number] [place] [address] 14445- 5063 Dec, [place] [address] [place] [id number] [place] [address] 02491- 4936 Dec, Type 2 diabetes mellitus without complications E11.9 ; jail 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 and BMI 40.0-44.9, adult Z68.41 [place] [address] [place] [id number] [place] [address] 22289- 6508 Dec, Type 2 diabetes mellitus without complication, without long- term current use of insulin E11.9 [place] [address] [place] [id number] [place] [address] 97257- 2809 Dec, [place] [address] [place] [id number] [place] [address] 91429- 3258 Dec, Type 2 diabetes mellitus without complication, without long- term current use of insulin E11.9 [place] [address] [place] [address] 73963- 0851 Dec, Type 2 diabetes mellitus without complication, without long- term current use of insulin E11.9 ; Gastroesophageal reflux disease, esophagitis presence not specified K21.9 and BMI 40.0-44.9, adult Z68.41 [place] [address] [place] [address] 67064- 6512 Dec, [facility] [address] [place] [address] [id number] October, Dental examination Z01.20 [place] [address] [place] [id number] [place] [address] 11149- 6379 Sep, [place] [address] 20934- 7300 Sep, Hypertriglyceridemia E78.1 [place] [address] [place] [id number] [place] [address] 57336- 5864 Sep, Hypothyroidism E03.9 ; Prediabetes R73.09 ; Mild intermittent asthma, uncomplicated J45.20 ; Bulge of cervical disc without myelopathy M50.20 ; Other chronic pain G89.29 ; Hand eczema L30.9 ; Right anterior knee pain M25.561 ; Hypertriglyceridemia E78.1 and BMI 40.0-44.9, adult Z68.41 [place] [address] [place] [id number] [place] [address] 32780- 5901 Sep, [place] [address] 00360- 0417 Sep, [place] [address] [place] [id number] [place] [address] 17875- 2016 Jul, [place] [address] 07595- 3037 May, Acute non-recurrent maxillary sinusitis J01.00 [facility] [address] [place] [id number] [place] [address] 40657 -6576 Mar, Other viral agents as the cause of diseases classified elsewhere B97.89 and Acute upper respiratory infection, unspecified J06.9 [place] [address] [place] [id number] [place] [address] 50786- 9765 Mar, [place] [address] 02099- 6024 Mar, Neck pain M54.2 [place] [address] [place] [id number] [place] [address] 50033- 2184 Feb, Bulge of cervical disc without myelopathy M50.20 [place] [address] 84239- 1695 22 Feb, 2017 Neck pain M54.2 [facility] [address] 69118- 5504 11 Feb, 2017 [facility] [address] 12476- 0332 07 Feb, 2017 Bulge of cervical disc without myelopathy M50.20 ; Hypertriglyceridemia E78.1 ; Hand eczema L30.9 and Hypothyroidism E03.9 [place] [address] 53269- 9391 Jan, [facility] [address] [id number] October, 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 dental examination Z01.20 [place] [address] 11528- 1541 Sep, Generalized abdominal pain R10.84 [place] [address] 58676- 6193 Sep, Schizoaffective disorder, bipolar type F25.0 and Generalized anxiety disorder F41.1 [facility] [address] 40488 -4619 Sep, [facility] [address] [place] [address] 00718 -1743 Sep, Vaginal burning N94.9 and Vaginal mitzi B37.3 [facility] [address] 58918 -9486 Sep, Gastroenteritis K52.9 [facility] [address] [place] [address] 94025 -2397 18 Sep, 2016 Thrush B37.0 [facility] [address] 73699 -3380 15 Sep, 2016 Pharyngitis due to other organism J02.8 [place] [address] 56719- 2634 Sep, [facility] [address] 66218 -8666 Aug, Cervicalgia M54.2 [place] [address] 54825- 6673 Aug, Hypothyroidism E03.9 ; Dry skin L85.3 ; Plantar fasciitis, bilateral M72.2 and Other chronic pain G89.29 [facility] [address] 74754 -8620 Aug, Abrasion T14.8 [facility] [address] [id number] Aug, Dental examination Z01.20 [facility] [address] 8[address] -6599 Aug, Excessive cerumen in right ear canal H61.21 ; Impacted cerumen of both ears 380.4 and Bronchitis J40 [facility] [place] [address] 38352 -5888 Jul, Bilateral impacted cerumen H61.23 and Acute non-recurrent frontal sinusitis J01.[address] 97758- 6666 May, Schizoaffective disorder, bipolar type F25.0 and Generalized anxiety disorder F41.1 [place] [address] 46384- 4323 May, [place] [address] 53096- 5625 May, Cervicalgia M54.2 and Hypertriglyceridemia E78.1 [place] [address] 59161- 9081 May, [place] [address] 47373- 9862 May, STD exposure Z20.2 and Well woman exam Z01.419 [facility] [address] [address]- 6590 May, [facility] [address] [address]- 2324 Mar, [facility] [address] [address]- 9083 Dec, Pain in left knee M25.562 [facility] [address] [address]- 2421 Dec, [facility] [address] [place] [id number] [place] [address] 66051- 2975 Nov, [facility] [address] [place] [address] 56195- 1713 October, [facility] [address] [place] [id number] [place] [address] 02638- 3637 Aug, [facility] [address] [address]- 5465 Jul, [facility] [address] [address]- 6997 Jul, [facility] [address] [address]- 4519 Jul, Plantar fasciitis M72.2 and 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 [facility] [address] [address]- 7284 Jul, [facility] [address] [address]- 4208 Jun, Plantar fasciitis M72.2 and Physical exam Z00.00 [facility] [address] [address]- 4966 Jun, [facility] [address] [place] [id number] [place] [address] 54967- 5126 Jun, [facility] [address] [place] [address] 26685- 8219 Jun, [facility] [address] [place] [id number] [place] [address] 16435- 5782 May, [facility] [address] [place] [id number] [place] [address] 20526- 0389 May, Hypertriglyceridemia E78.1 [facility] [address] 934928- 0888 16 May, 2015 Hypothyroidism E03.9 ; Prediabetes R73.09 and Hypertriglyceridemia E78.1 [facility] [address] [place] [id number] [place] [address] 62467- 0017 May, [facility] [address] [place] [id number] [place] [address] 14109- 8379 May, [facility] [address] [place] [id number] [place] [address] 30600- 9622 May, Hypothyroidism E03.9 ; Prediabetes R73.09 and Hypertriglyceridemia E78.1 [facility] [address] [place] [id number] [place] [address] 41465- 2329 Apr, Schizoaffective disorder, bipolar type F25.0 [facility] [address] [place] [id number] [place] [address] 24737- 9631 Mar, [facility] [address] [place] [id number] [place] [address] 81568- 4826 Mar, [facility] [address] [place] [id number] [place] [address] 71063- 0269 Mar, [facility] [address] [place] [id number] [place] [address] 70747- 9483 30 Feb, 2015 [facility] [address] [place] [id number] [place] [address] 59928- 4412 24 Feb, 2015 [facility] [address] [place] [id number] [place] [address] 09819- 8323 16 Feb, 2015 [facility] [address] [place] [id number] [place] [address] 99493- 7967 15 Feb, 2015 Screen for STD (sexually transmitted disease) V74.5 ; Counseling on other sexually transmitted diseases V65.45 ; Back pain 724.5 ; Contact with or exposure to venereal diseases V01.6 and Pelvic pain in female 625.9 [facility] [address] [place] [id number] [place] [address] 37119- 5421 15 Feb, 2015 Schizoaffective disorder, unspecified 295.70 and Anxiety state, unspecified 300.00 [place] [address] 64035- 5512 14 Feb, 2015 [facility] [address] [place] [id number] [place] [address] 17877- 2494 10 Feb, 2015 [facility] [address] 03088- 3939 Feb, Impacted cerumen of both ears 380.4 and Mild intermittent asthma 493.90 [facility] [address] [place] [id number] [place] [address] 13534- 5210 Feb, [facility] [address] [place] [id number] [place] [address] 03881- 8566 Jan, [facility] [address] [place] [id number] [place] [address] 12985- 7730 Jan, [facility] [address] [place] [id number] [place] [address] 85913- 3007 Jan, [facility] [address] [place] [id number] [place] [address] 88546- 4102 Jan, [facility] [address] [place] [id number] [place] [address] 23157- 1912 Jan, [facility] [address] [place] [id number] [place] [address] 73481- 0233 Jan, [facility] [address] [place] [address]- 9278 Jan, [facility] [address] [address]- 6223 Jan, [facility] [address] [address]- 1211 Jan, [facility] [address] [address]- 5455 Jan, [facility] [address] [address]- 6035 Jan, [facility] [address] [place] [address] 73766- 9885 Dec, Schizoaffective disorder, unspecified 295.70 [facility] [address] [address]- 7304 Dec, [facility] [address] [place] [address] 77328- 9798 Dec, [facility] [address] [address]- 0377 Dec, [facility] [address] [address]- 3909 Dec, [facility] [address] [address]- 1407 Dec, [facility] [address] [address] Dec, Dental examination V72.2 [facility] [address] [address]- 3941 Dec, Schizoaffective disorder, unspecified 295.70 ; Persistent disorder of initiating 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.42 and Anxiety state, unspecified 300.00 [facility] [address] [address]- 3560 Dec, [facility] [address] [place] [address] 52712- 4092 Nov, High risk medication use V58.69 [facility] [address] [place] [id number] [place] [address] 95021- 4403 Nov, [facility] [address] [place] [id number] [place] [address] 99875- 2170 Nov, [facility] [address] [place] [id number] [place] [address] 00384- 6860 Nov, High risk medication use V58.69 [facility] [address] [place] [id number] [place] [address] 00914- 8081 Nov, [facility] [address] [place] [id number] [place] [address] 82879- 2116 Nov, [facility] [address] [place] [id number] [place] [address] 62267- 6518 Nov, [facility] [address] [place] [id number] [place] [address] 53024- 6917 Nov, Hypothyroidism 244.9 ; Hypertriglyceridemia 272.1 and Prediabetes 790.29 [facility] [address] [place] [id number] [place] [address] 31862- 0314 Nov, [facility] [address] [place] [id number] [place] [address] 62766- 9517 Nov, [facility] [address] [place] [id number] [place] [address] 98178- 8017 Nov, Bulge of cervical disc without myelopathy 722.0 ; Lumbar facet arthropathy 721.3 ; Family history of stroke V17.1 ; Hyperthyroidism 242.90 and 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 long-term current use of medication V58.69 [facility] [address] [place] [id number] [place] [address] 32213- 4628 Nov, [facility] [address] [place] [id number] [place] [address] 67731- 9209 October, [facility] [address] [place] [id number] [place] [address] 93274- 0980 October, [facility] [address] [address]- 0066 October, [facility] [address] [address]- 4096 October, [facility] [address] [address]- 8739 October, [facility] [address] [place] [id number] [place] [address] 86881- 5633 October, [facility] [address] [place] [address] 04951- 6637 October, Schizoaffective disorder, unspecified 295.70 and Persistent disorder of initiating 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.42 [facility] [address] [place] [id number] [address]- 2858 October, Schizoaffective disorder, unspecified 295.70 [facility] [address] [place] [id number] [address]- 9503 October, [facility] [address] [place] [id number] [place] [address] 58300- 4281 October, [facility] [address] [address]- 2524 October, [facility] [address] [address]- 9937 Sep, Lumbago of lumbar region with sciatica 724.2 and Neck pain 723.1 [facility] [address] [address]- 8022 Sep, [facility] [address] [place] [id number] [address]- 3617 Sep, [facility] [address] 6556 Aug, [facility] [address] [place] [id number] [address]- 6283 26 Aug, 2014 [facility] [place] [facility] [address] [id number] [place] [address]- 4549 26 Aug, 2014 [facility] [place] [facility] [address] [id number] [place] [address]- 5759 26 Aug, 2014 [facility] [place] [facility] [address] [id number] [place] [address]- 3035 24 Aug, 2014 [facility] [place] [facility] [address] [id number] [place] [address]- 2224 24 Aug, 2014 [facility] [place] [facility] [address] [id number] [place] [address]- 2423 20 Aug, 2014 [facility] [place] [facility] [address] [id number] [place] [address]- 4403 20 Aug, 2014 [facility] [place] [facility] [address] [id number] [place] [address]- 1236 19 Aug, 2014 [facility] [place] [facility] [address] [id number] [place] [address]- 0335 19 Aug, 2014 [facility] [place] [facility] [address] [id number] [place] [address]- 2042 18 Aug, 2014 [facility] [place] [facility] [address] [id number] [place] [address]- 9723 18 Aug, 2014 [facility] [place] [facility] [address] [id number] [place] [address]- 1418 18 Aug, 2014 [facility] [place] [facility] [address] [id number] [place] [address]- 1075 18 Aug, 2014 [facility] [place] [facility] [address] [id number] [place] [address]- 7531 16 Aug, 2014 [facility] [place] [facility] [address] [id number] [place] [address]- 7256 12 Aug, 2014 [facility] [place] [facility] [address] [id number] [place] [address]- 0946 12 Aug, 2014 [facility] [place] [facility] [address] [id number] [place] [address]- 2993 12 Aug, 2014 [facility] [place] [facility] [address] [id number] [place] [address]- 6738 Aug, [facility] [place] [facility] [address] [id number] [place] [address]- 5156 Aug, 2014 [facility] [place] [facility] [address] [id number] [place] [address]- 4588 Aug, 2014 [facility] [place] [facility] [address] [id number] [place] [address]- 1572 Aug, 2014 [facility] [place] [facility] [address] [id number] [place] [address]- 7266 Aug, 2014 [facility] [place] [facility] [address] [id number] [place] [address]- 1315 Aug, [facility] [place] [facility] [address] [id number] [place] [address]- 8803 Aug, 2014 [facility] [place] [facility] [address] [id number] [place] [address]- 4954 Aug, [facility] [place] [facility] [address] [id number] [place] [address]- 8920 Aug, [facility] [place] [facility] [address] [id number] [place] [address]- 7741 Jul, 2014 [facility] [place] [facility] [address] [id number] [place] [address]- 9111 Jul, 2014 [facility] [place] [facility] [address] [id number] [place] [address]- 9567 Jul, 2014 [facility] [place] [facility] [address] [id number] [place] [address]- 8611 Jul, 2014 [facility] [place] [facility] [address] [id number] [place] [address]- 2166 Jul, 2014 [facility] [place] [facility] [address] [id number] [place] [address]- 5186 Jul, 2014 [facility] [address] [id number] [place] [address]- 4117 Jul, [facility] [place] [facility] [address] [id number] [place] [address]- 9857 Jul, 2014 [facility] [place] [facility] [address] [id number] [place] [address]- 7133 Jul, [facility] [place] [facility] [address] [id number] [place] [address]- 0243 Jul, [facility] [address] [id number] [place] [address]- 0621 Jun, [facility] [place] [facility] [address] [id number] [place] [address]- 8748 Jun, [facility] [address] [id number] [place] [address]- 6576 Jun, [facility] [address] [id number] [place] [address]- 6471 Jun, [facility] [address] [facility] [id number] [place] [address]- 9799 Jun, [facility] [place] [facility] [address] [facility] [id number] [place] [address]- 7216 Jun, [facility] [address] [id number] [address]- 6910 Jun, [facility] [place] [facility] [address] [id number] [address]- 4282 May, [facility] [place] [facility] [address] [id number] [place] [address]- 9785 May, [facility] [place] [facility] [address] [id number] [place] [address]- 5145 May, [facility] [place] [facility] [address] [facility] [id number] [place] [address] May, [facility] [place] [facility] [address] [id number] [place] [address] May, [facility] [place] [facility] [address] [id number] [place] [address] May, [facility] [place] [facility] [address] [id number] [place] [address] May, [facility] [place] [facility] [address] [id number] [place] [address] May, [facility] [place] [facility] [address] [id number] [place] [address] May, [facility] [place] [facility] [address] [id number] [place] [address] May, [facility] [place] [facility] [address] [id number] [place] [address] Apr, [facility] [place] [facility] [address] [id number] [place] [address] Apr, [facility] [place] [facility] [address] [id number] [place] [address] Apr, [facility] [place] [facility] [address] [id number] [place] [address] Apr, [facility] [place] [facility] [address] [id number] [place] [address] Apr, [facility] [place] [facility] [address] [id number] [place] [address] Apr, [facility] [place] [facility] [address] [id number] [place] [address] Apr, [facility] [place] [facility] [address] [id number] [place] [address] Apr, [facility] [place] [facility] [address] [id number] [place] [address] Apr, [facility] [place] [facility] [address] [id number] [place] [address] Mar, [facility] [place] [facility] [address] [id number] [place] [address] Mar, [facility] [place] [facility] [address] [id number] [place] [address] Mar, [facility] [place] [facility] [address] [id number] [place] [address] Mar, [facility] [place] [facility] [address] [id number] [place] [address] Mar, [facility] [place] [facility] [address] [id number] [place] [address] Mar, [facility] [place] [facility] [address] [id number] [place] [address] Mar, [facility] [place] [facility] [address] [id number] [place] [address] Mar, [facility] [place] [facility] [address] [id number] [place] [address] Mar, [facility] [place] [facility] [address] [id number] [place] [address] Mar, [facility] [place] [facility] [address] [id number] [place] [address] Feb, [facility] [place] [facility] [address] [id number], [place] [address] Feb, [facility] [place] [facility] [address] [id number][place] [address] Feb, [facility] [place] [facility] [address] [id number] [place] [address] Feb, [facility] [place] [facility] [address] [id number], [place] [address] Feb, [facility] [place] [facility] [address] [id number] [place] [address] Jan, [facility] [place] [facility] [address] [id number] [place] [address] Jan, [facility] [place] [facility] [address] [id number] [place] [address] Jan, [facility] [place] [facility] [address] [id number] [place] [address] Jan, [facility] [place] [facility] [address] [id number] [place] [address] Jan, [facility] [place] [facility] [address] [id number] [place] [address] Jan, [facility] [place] [facility] [address] [id number] [place] [address] Jan, [facility] [place] [facility] [address] [id number] [place] [address] Jan, [facility] [place] [facility] [address] [id number] [place] [address] Jan, [facility] [place] [facility] [address] [id number] [place] [address] Dec, [facility] [place] [facility] [address] [id number] [place] [address] Dec, [facility] [place] [facility] [address] [id number] [place] [address] Dec, [facility] [place] [facility] [address] [id number] [place] [address] Dec, [facility] [place] [facility] [address] [id number] [place] [address] Dec, [facility] [place] [facility] [address] [id number] [place] [address] Dec, [facility] [place] [facility] [address] [id number] [place] [address] Dec, [facility] [place] [facility] [address] [id number] [place] [address] Dec, [facility] [place] [facility] [address] [id number] [place] [address] Nov, [facility] [place] [facility] [address] [id number] [place] [address] Nov, [facility] [place] [facility] [address] [id number] [place] [address]647 Nov, [facility] [place] [facility] [address] [id number] [place] [address]59 Nov, [facility] [place] [facility] [address] [id number] [place] [address] Nov, [facility] [place] [facility] [address] [id number] [place] [address] 3814 Nov, [facility] [place] [facility] [address] [id number] [place] [address]64 Nov, [facility] [place] [facility] [address] [id number] [place] [address]- [address] Nov, [facility] [place] [facility] [address] [id number] [place] [address]- 9773 Nov, [facility] [place] [facility] [address] [id number] [place] [address]- [address]398 Nov, [facility] [place] [facility] [address] [id number] [place] [address] 1005 Nov, [facility] [place] [facility] [address] [id number] [place] [address] 1988 Nov, [facility] [place] [facility] [address] [id number] [place] [address] October, [facility] [place] [facility] [address] [id number] [place] [address] October, [facility] [place] [facility] [address] [id number] [place] [address]105 October, [facility] [place] [facility] [address] [id number] [place] [address] 65[address] October, [facility] [place] [facility] [address] [id number] [place] [address] October, [facility] [place] [facility] [address] [id number] [place] [address] Sep, [facility] [place] [facility] [address] [id number] [place] [address] 8908 Sep, [facility] [place] [facility] [address] [id number] [place] [address] Sep, [facility] [place] [facility] [address] [id number] [place] [address] 4681 Sep, [facility] [place] [facility] [address] [id number] [place] [address] 3640 Sep, [facility] [place] [facility] [address] [id number] [place] [address] 5666 Sep, [facility] [place] [facility] [address] [id number] [place] [address] 8542 Sep, [facility] [place] [facility] [address] [id number] [place] [address] 58[address] Sep, [facility] [place] [facility] [address] [id number] [place] [address] 9242 Sep, [facility] [place] [facility] [address] [id number] [place] [address]- [address]678 Sep, [facility] [place] [facility] [address] [id number] [place] [address]- [address] Sep, [facility] [place] [facility] [address] [id number] [place] [address]- 8606 Sep, [facility] [place] [facility] [address] [id number] [place] [address] 478[address] Sep, [facility] [place] [facility] [address] [id number] [place] [address]- 2933 Sep, [facility] [place] [facility] [address] [id number] [place] [address]- [address]687 Sep, [facility] [address] [id number] [place] [address] Sep, [facility] [place] [facility] [address] [id number] [place] [address]- 1416 Sep, [facility] [address] [id number] [place] [address]- 4995 Sep, [facility] [place] [facility] [address] [id number] [place] [address]- 2674 Sep, [facility] [address] [id number] [place] [address]- [address]37 Aug, [facility] [place] [facility] [address] [id number] [place] [address] Aug, [facility] [address] [id number] [place] [address] 279[address] Aug, [facility] [address] [id number] [place] [address]169 Aug, [facility] [address] [id number] [place] [address] Jun, [facility] [address] [id number] [place] [address]14 Jun, [facility] [address] [id number] [place] [address] Mar, [facility] [place] [facility] [address] [id number] [place] [address] 0969 Mar, [facility] [place] [facility] [address] [id number] [place] [address]- 7204 Nov, [facility] [place] [facility] [address] [id number] [place] [address] 9087 Sep, [facility] [place] [facility] [address] [id number] [place] [address] 8711 Jun, [facility] [address] [facility] [id number] [address] Jun, [facility] [address] [id number] [address] Apr, [facility] [address] [facility] [id number] [address] Apr, [facility] [address] [id number] [address] Apr, [facility] [address] [facility] [id number] [address] Mar, [facility] [address] [id number] [address] Feb, IMMUNIZATIONS No Known Immunizations SOCIAL HISTORY Never Assessed REASON FOR VISIT Requests return call PLAN OF CARE VITAL SIGNS MEDICATIONS Medication Instructions Dosage Frequency Start Date End Date Duration Status Test strips test strips Check blood sugar [...]
--- OUTSIDE RECORDS SUMMARY | 2018-08-13 18:26 | XMS REPORT ---
Author Author CHRISTO ADELA [facility] Address [address] [place] [address] Care Team Providers Care White Sugar Supervisor Name Role Phone RUPINDER VILLAFUERTEY Unavailable PROBLEMS Type Condition ICD9-CM Code OZW13-ON Code Onset Dates Condition Status SNOMED Code Problem Schizoaffective disorder, bipolar type F25.0 Active 00760220 Problem Vaginal burning N94.9 Active 129968640 Problem Other chronic pain G89.29 Active 98617004 Problem Type 2 diabetes mellitus without complications E11.9 Active 316311396 Problem alf 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 Active 094298825 Problem Hand eczema L30.9 Active 303761175 Problem Bulging of cervical intervertebral disc M50.20 Active 442426325 Problem Type 2 diabetes mellitus without complication, without long-term current use of insulin E11.9 Active 980361270 Problem Gastroesophageal reflux disease, esophagitis presence not specified K21.9 Active 365680541 Problem Cervical dysplasia N87.9 Active 41614691 Problem Hypothyroidism E03.9 Active 43700651 Problem Hypertriglyceridemia E78.1 Active 252025371 Problem Prediabetes R73.09 Active 8345674 Problem Bulge of cervical disc without myelopathy M50.20 Active 502122388 Problem Mild intermittent asthma, uncomplicated J45.20 Active 101312420 Problem Lumbar facet arthropathy M46.96 Active 305309428 Problem Generalized anxiety disorder F41.1 Active [id number] ALLERGIES No Information ENCOUNTERS Encounter Location Date Diagnosis [facility] [address] [facility] [id number] [address] Feb, Type 2 diabetes mellitus without complication, without long- term current use of insulin E11.9 ; Hypertriglyceridemia E78.1 and Gastroesophageal reflux disease, esophagitis presence not specified K21.9 [facility] [address] [facility] [id number] [address] Feb, [facility] [address] [address] Jan, [facility] [address] [place] [id number] [place] [address] 22902- 6753 Jan, Type 2 diabetes mellitus without complication, without long- term current use of insulin E11.9 [place] [id number] [place] [address] 77755- 4737 Dec, 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 and BMI 40.0-44.9, adult Z68.41 [place] [address] [address] [id number] [place] [address] 89610- 2898 Dec, Type 2 diabetes mellitus without complication, without long- term current use of insulin E11.9 [place] [id number] [place] [address] 40397- 7404 Dec, [place] [address] [address] [id number] [place] [address] 51620- 4219 Dec, Type 2 diabetes mellitus without complication, without long- term current use of insulin E11.9 [place] [id number] [place] [address] 11379- 5350 Dec, Type 2 diabetes mellitus without complication, without long- term current use of insulin E11.9 ; Gastroesophageal reflux disease, esophagitis presence not specified K21.9 and BMI 40.0-44.9, adult Z68.41 [place] [address] [place] [address] 92685- 6785 Dec, [facility] [address] [id number] October, Dental examination Z01.20 [place] [address] [address] [id number] [place] [address] 12434- 5622 Sep, [place] [address] 29376- 0326 Sep, Hypertriglyceridemia E78.1 [place] [address] [address] [id number] [place] [address] 59136- 4744 Sep, Hypothyroidism E03.9 ; Prediabetes R73.09 ; Mild intermittent asthma, uncomplicated J45.20 ; Bulge of cervical disc without myelopathy M50.20 ; Other chronic pain G89.29 ; Hand eczema L30.9 ; Right anterior knee pain M25.561 ; Hypertriglyceridemia E78.1 and BMI 40.0-44.9, adult Z68.41 [place] [address] [id number] [place] [address] 74788- 4831 Sep, [place] [address] 01256- 2346 Sep, [place] [address] [address] [id number] [place] [address] 47141- 2799 Jul, [place] [address] 48961- 3151 May, Acute non-recurrent maxillary sinusitis J01.00 [facility] [id number] [place] [address] 81392 -0038 Mar, Other viral agents as the cause of diseases classified elsewhere B97.89 and Acute upper respiratory infection, unspecified J06.9 [place] [address] [address] [id number] [place] [address] 32247- 9398 Mar, [place] [address] 91944- 3124 02 Mar, 2017 Neck pain M54.2 [place] [address] [address] [id number] [place] [address] 95447- 1041 27 Feb, 2017 Bulge of cervical disc without myelopathy M50.20 [place] [address] 65225- 0023 22 Feb, 2017 Neck pain M54.2 [facility] [address] 83168- 3449 11 Feb, 2017 [facility] [address] 46967- 4050 07 Feb, 2017 Bulge of cervical disc without myelopathy M50.20 ; Hypertriglyceridemia E78.1 ; Hand eczema L30.9 and Hypothyroidism E03.9 [facility] [address] 02935- 9134 Jan, [facility] [address] [id number] October, 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 dental examination Z01.20 [place] [address] 96285- 1586 Sep, Generalized abdominal pain R10.84 [facility] [address] 07552- 4235 Sep, Schizoaffective disorder, bipolar type F25.0 and Generalized anxiety disorder F41.1 [facility] [address] 05500 -6449 Sep, [facility] [address] 05927 -6908 Sep, Vaginal burning N94.9 and Vaginal mitzi B37.3 [facility] [address] 81607 -4305 Sep, Gastroenteritis K52.9 [facility] [address] 99627 -6486 18 Sep, 2016 Thrush B37.0 [facility] [address] 81261 -3795 15 Sep, 2016 Pharyngitis due to other organism J02.8 [facility] [address] 96060- 3464 Sep, [facility]ALK [facility] [address] 63977 -1046 Aug, Cervicalgia M54.2 [place] [address] 76968- 8030 Aug, Hypothyroidism E03.9 ; Dry skin L85.3 ; Plantar fasciitis, bilateral M72.2 and Other chronic pain G89.29 [facility] WALK IN [facility] [address] 60782 -0936 Aug, Abrasion T14.8 [facility] [address] [id number] Aug, Dental examination Z01.20 [facility] WALK IN [address] 63222 -2355 Aug, Excessive cerumen in right ear canal H61.21 ; Impacted cerumen of both ears 380.4 and Bronchitis J40 [facility] W[facility] IN [address] 51775 -6234 Jul, Bilateral impacted cerumen H61.23 and Acute non-recurrent frontal sinusitis J01.[address] 19185- 3400 May, Schizoaffective disorder, bipolar type F25.0 and Generalized anxiety disorder F41.1 [place] [address] [address] [id number] [place] [address] 26612- 6879 May, [address] 76839- 9802 May, Cervicalgia M54.2 and Hypertriglyceridemia E78.1 [place] [address] 96091- 8795 May, [address] 60084- 6167 May, STD exposure Z20.2 and Well woman exam Z01.419 [facility] [address] [address]- 9766 May, [facility] [address], [place] [address] 5606 Mar, [facility] [address], [place] [address]- 0844 Dec, Pain in left knee M25.562 [facility] [address], [place] [address]- 6327 Dec, [facility] [address] [id number] [place] [address] 15306- 4456 Nov, [facility] [id number] [address]- 4207 October, [facility] [address] [address] [id number] [place] [address] 84100- 8253 Aug, [facility] [address], [place] [address]- 6218 Jul, [facility] [id number] [address]- 7350 Jul, 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 [address], [place] [address]- 8277 Jul, [facility] [address], [place] [address]- 4061 Jun, Plantar fasciitis M72.2 and Physical exam Z00.00 [facility] [address], [place] [address]- 5947 Jun, [facility] [id number] [place] [address] 36361- 2435 Jun, [facility] [id number] [place] [address] 77461- 0882 Jun, [facility] [address] [id number] [place] [address] 79071- 3595 May, [facility] [address] [address] [id number] [place] [address] 97973- 4699 May, Hypertriglyceridemia E78.1 [facility] [address] [address] [id number] [place] [address] 042882- 3093 May, Hypothyroidism E03.9 ; Prediabetes R73.09 and Hypertriglyceridemia E78.1 [facility] [address] [id number] [place] [address] 34217- 3990 May, [facility] [address] [id number] [place] [address] 03531- 2488 May, [facility] [address] [id number] [place] [address] 94168- 7940 May, Hypothyroidism E03.9 ; Prediabetes R73.09 and Hypertriglyceridemia E78.1 [facility] [address] [id number] [place] [address] 66451- 0315 Apr, Schizoaffective disorder, bipolar type F25.0 [facility] [address] [id number] [place] [address] 88883- 0622 Mar, [facility] [address] [id number] [place] [address] 53151- 6684 Mar, [facility] [address] [address] [id number] [place] [address] 97141- 6607 Mar, [facility] [address] [address] [id number] [place] [address] 30362- 0292 30 Feb, 2015 [facility] [address] [address] [id number] [place] [address] 90821- 6536 Feb, [facility] [address] [address] [id number] [place] [address] 86910- 9538 16 Feb, 2015 [facility] [address] [address] [id number] [place] [address] 78517- 2693 15 Feb, 2015 Screen for STD (sexually transmitted disease) V74.5 ; Counseling on other sexually transmitted diseases V65.45 ; Back pain 724.5 ; Contact with or exposure to venereal diseases V01.6 and Pelvic pain in female 625.9 [facility] [address] 90454- 3153 15 Feb, 2015 Schizoaffective disorder, unspecified 295.70 and Anxiety state, unspecified 300.00 [facility] [address] [place] [id number] [place] [address] 01007- 2793 14 Feb, 2015 [facility] [address] [place] [id number] [place] [address] 61128- 0062 10 Feb, 2015 [facility] [address] 97119- 6489 Feb, Impacted cerumen of both ears 380.4 and Mild intermittent asthma 493.90 [facility] [address] [place] [id number] [place] [address] 24080- 2204 Feb, [facility] [address] [address] [id number] [place] [address] 58870- 1647 Jan, [facility] [address] [address] [id number] [place] [address] 88698- 5904 Jan, [facility] [address] [address] [id number] [place] [address] 52277- 5601 Jan, [facility] [address] [address] [id number] [place] [address] 66840- 3311 Jan, [facility] [address] [address] [id number] [place] [address] 51239- 8089 Jan, [facility] [address] [address] [id number] [place] [address] 28653- 4954 Jan, [facility] [address] [place] [address]- 9594 Jan, [facility] [address], [place] [address]- 4391 Jan, [facility] [id number], [place] [address]- 2123 Jan, [facility] [id number], [place] [address]- 3276 Jan, [facility] [id number] [address]- 2403 Jan, [facility] [address] [address] [id number] [place] [address] 45396- 7504 Dec, Schizoaffective disorder, unspecified 295.70 [facility] [address], [place] [address]- 7506 Dec, [facility] [address] [id number] [place] [address] 25709- 3509 Dec, [facility] [address], [place] [address]- 0631 Dec, [facility] [id number] [place] [address] 65280- 3386 Dec, [facility] [address], [place] [address]- 9089 Dec, [facility] [address] [id number] Dec, Dental examination V72.2 [facility] [address], [place] [address]- 6935 Dec, Schizoaffective disorder, unspecified 295.70 ; Persistent disorder of initiating 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.42 and Anxiety state, unspecified 300.00 [facility] [address] 0690 Dec, [facility] [id number] [place] [address] 33054- 0885 Nov, High risk medication use V58.69 [facility] [address] [id number] [place] [address] 22210- 6055 Nov, [facility] [id number] [place] [address] 04107- 6174 Nov, [facility] [id number] [place] [address] 37004- 3355 Nov, High risk medication use V58.69 [facility] [id number] [place] [address] 97591- 3830 Nov, [facility] [id number] [place] [address] 00030- 0202 Nov, [facility] [address] [id number] [place] [address] 18593- 4986 Nov, [facility] [address] [id number] [place] [address] 64986- 6771 Nov, Hypothyroidism 244.9 ; Hypertriglyceridemia 272.1 and Prediabetes 790.29 [facility] [address] [id number] [place] [address] 73160- 5891 Nov, [facility] [id number] [place] [address] 32474- 5971 Nov, [facility] [id number] [place] [address] 26642- 9696 Nov, Bulge of cervical disc without myelopathy 722.0 ; Lumbar facet arthropathy 721.3 ; Family history of stroke V17.1 ; Hyperthyroidism 242.90 and 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 long-term current use of medication V58.69 [facility] [id number] [place] [address] 81899- 0469 Nov, [facility] [id number] [place] [address] 91472- 4888 October, [facility] [id number] [place] [address] 70848- 0359 October, [facility] [address], [place] [address]- 5112 October, [facility] [id number] [place] [address] 39629- 9196 October, [facility] [id number] [place] [address] 05016- 9823 October, [facility] [id number] [place] [address] 89539- 8039 October, [facility] [id number] [place] [address] 87888- 4065 October, Schizoaffective disorder, unspecified 295.70 and Persistent disorder of initiating 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.42 [facility] [id number] [place] [address] 16258- 7205 October, Schizoaffective disorder, unspecified 295.70 [facility] [id number] [place] [address] 38856- 2854 October, [facility] [id number] [place] [address] 78069- 4737 October, [facility] [id number] [address]- 8496 October, [facility] [address], [place] [address]- 5379 Sep, Lumbago of lumbar region with sciatica 724.2 and Neck pain 723.1 [facility] [address], [place] [address]- 7918 Sep, [facility] [id number] [place] [address] 45396- 3464 Sep, [facility] [id number] [address]- 9918 Aug, [facility] [id number] [place] [address] 72629- 3866 26 Aug, 2014 [facility] [place] [facility] [address] [id number] [place] [address]- 1371 26 Aug, 2014 [facility] [place] [facility] [address] [id number] [place] [address]- 3099 26 Aug, 2014 [facility] [place] [facility] [address] [id number] [place] [address]- 6255 24 Aug, 2014 [facility] [place] [facility] [address] [id number] [place] [address]- 6978 24 Aug, 2014 [facility] [place] [facility] [address] [id number] [place] [address]- 4712 20 Aug, 2014 [facility] [place] [facility] [address] [id number] [place] [address] 20 Aug, 2014 [facility] [place] [facility] [address] [id number] [place] [address] 19 Aug, 2014 [facility] [place] [facility] [address] [id number] [place] [address] 19 Aug, 2014 [facility] [place] [facility] [address] [id number] [place] [address] 18 Aug, 2014 [facility] [place] [facility] [address] [id number] [place] [address] 4366 18 Aug, 2014 [facility] [place] [facility] [address] [id number] [place] [address] 9891 18 Aug, 2014 [facility] [place] [facility] [address] [id number] [place] [address] 1077 18 Aug, 2014 [facility] [place] [facility] [address] [id number] [place] [address] 2142 16 Aug, 2014 [facility] [place] [facility] [address] [id number] [place] [address] 12 Aug, 2014 [facility] [place] [facility] [address] [id number] [place] [address]- [address] 12 Aug, 2014 [facility] [place] [facility] [address] [id number] [place] [address]- [address]076 12 Aug, 2014 [facility] [place] [facility] [address] [id number] [place] [address] Aug, [facility] [place] [facility] [address] [id number] [place] [address] Aug, 2014 [facility] [place] [facility] [address] [id number] [place] [address] 8201 Aug, 2014 [facility] [place] [facility] [address] [id number] [place] [address]- 1835 06 Aug, 2014 [facility] [place] [facility] [address] [id number] [place] [address]- 1621 05 Aug, 2014 [facility] [place] [facility] [address] [id number] [place] [address]- 30[address] Aug, [facility] [place] [facility] [address] [id number] [place] [address] 9184 Aug, 2014 [facility] [place] [facility] [address] [id number] [place] [address]- [address] Aug, [facility] [place] [facility] [address] [id number] [place] [address] Aug, [facility] [place] [facility] [address] [facility] [place] [id number] [place] [address] Jul, 2014 [facility] [place] [facility] [address] [id number] [place] [address]- [address] Jul, 2014 [facility] [place] [facility] [address] [id number] [place] [address]- [address]451 26 Jul, 2014 [facility] [place] [facility] [address] [id number] [place] [address]649 Jul, 2014 [facility] [place] [facility] [address] [id number] [place] [address]- 3392 Jul, 2014 [facility] [place] [facility] [address] [id number] [place] [address]- 1685 Jul, 2014 [facility] [place] [facility] [address] [id number] [place] [address]- 96[address] Jul, [facility] [place] [facility] [address] [id number] [place] [address] Jul, 2014 [facility] [place] [facility] [address] [id number] [place] [address] Jul, [facility] [place] [facility] [address] [id number] [place] [address]14 Jul, [facility] [place] [facility] [address] [id number] [place] [address] Jun, [facility] [place] [facility] [address] [id number] [place] [address]487 Jun, [facility] [place] [facility] [address] [id number] [place] [address]- 0774 Jun, [facility] [place] [facility] [address] [id number] [place] [address] 48[address] Jun, [facility] [place] [facility] [address] [id number] [place] [address] 89[address] Jun, [facility] [place] [facility] [address] [facility] [place] [id number] [place] [address] Jun, [facility] [place] [facility] [address] [id number], [place] [address] Jun, [facility] [place] [facility] [address] [id number] [place] [address] May, [facility] [place] [facility] [address] [id number] [place] [address] May, [facility] [facility] [address] [id number] [place] [address] May, [facility] [place] [facility] [address] [id number] [place] [address] May, [facility] [place] [address] [id number] [place] [address]27 May, [facility] [place] [facility] [address] [id number] [place] [address] May, [facility] [place] [facility] [address] [id number] [place] [address] May, [facility] [address] [id number] [place] [address] May, [facility] [place] [facility] [address] [id number] [place] [address] May, [facility] [place] [address] [id number] [place] [address] May, [facility] [address] [id number] [place] [address] Apr, [facility] [address] [id number] [place] [address] Apr, [facility] [address] [id number] [place] [address] Apr, [facility] [address] [id number] [place] [address] Apr, [facility] [address] [id number] [place] [address] 16[address] Apr, [facility] [place] [address] [id number] [place] [address] Apr, [facility] [address] [id number] [place] [address] Apr, [facility] [address] [id number] [place] [address] 77[address] Apr, [facility] [address] [id number] [place] [address] Apr, [facility] [address] [id number] [place] [address] Mar, [facility] [address] [id number] [place] [address] Mar, [facility] [address] [id number] [place] [address] Mar, [facility] [address] [id number] [place] [address] 47[address] Mar, [facility] [address] [id number] [place] [address]165 Mar, [facility] [address] [id number] [place] [address] 3928 Mar, [facility] [address] [id number] [place] [address] 6[address] Mar, [facility] [address] [id number] [place] [address]134 Mar, [facility] [address] [id number] [place] [address] 60[address] Mar, [facility] [address] [id number] [place] [address] 8284 Mar, [facility] [address] [id number] [place] [address] 69[address] Feb, [facility] [address] [id number] [place] [address] 9200 Feb, [facility] [address] [id number], [place] [address] Feb, [facility] [address] [id number] [place] [address] 39[address] Feb, [facility] [address] [id number] [place] [address] 275[address] Feb, [facility] [address] [id number] [place] [address] Jan, [facility] [address] [id number] [place] [address] 7430 Jan, [facility] [address] [id number] [place] [address] 39[address] Jan, [facility] [address] [id number] [place] [address] 8076 Jan, [facility] [address] [id number] [place] [address]274 Jan, [facility] [address] [id number] [place] [address] 117[address] Jan, [facility] [address] [id number] [place] [address] 38[address] Jan, [facility] [address] [id number] [place] [address] 8[address] Jan, [facility] [address] [id number] [place] [address] Jan, [facility] [address] [id number] [place] [address] 9676 Dec, [facility] [address] [id number] [place] [address] 6[address] Dec, [facility] [address] [id number] [place] [address] 9945 Dec, [facility] [address] [id number] [place] [address] 4147 Dec, [facility] [address] [id number] [place] [address] 7794 Dec, [facility] [address] [id number] [place] [address]- 9021 Dec, [facility] [address] [id number] [place] [address]497 Dec, [facility] [address] [id number] [place] [address]- 2293 Dec, [facility] [address] [id number] [place] [address] 9625 Nov, [facility] [address] [id number] [place] [address] 6664 Nov, [facility] [address] [id number] [place] [address] 0431 Nov, [facility] [address] [id number] [place] [address] Nov, [facility] [address] [id number] [place] [address] 2980 Nov, [facility] [address] [id number] [place] [address] 3345 Nov, [facility] [address] [id number] [place] [address] 1987 Nov, [facility] [address] [id number] [place] [address] 7628 Nov, [facility] [address] [id number] [place] [address] 48[address] Nov, [facility] [address] [id number] [place] [address] 3296 Nov, [facility] [address] [id number] [place] [address] 0826 Nov, [facility] [address] [id number] [place] [address]- 4710 Nov, [facility] [address] [id number] [place] [address] 4698 October, [facility] [address] [id number] [place] [address] 6153 October, [facility] [address] [id number] [place] [address] 2650 October, [facility] [address] [id number] [place] [address] October, [facility] [address] [id number] [place] [address] 5748 October, [facility] [address] [id number] [place] [address]- 9383 Sep, [facility] [address] [id number] [place] [address]- 8856 Sep, [facility] [address] [id number] [place] [address]- 6394 Sep, [facility] [address] [id number] [place] [address]- 6535 Sep, [facility] [address] [id number] [place] [address]- 3274 Sep, [facility] [address] [id number] [place] [address]- 1756 Sep, [facility] [address] [id number] [place] [address]- 9016 Sep, [facility] [address] [id number] [place] [address]- 1788 Sep, [facility] [address] [id number] [place] [address]- 1432 Sep, [facility] [address] [id number] [place] [address]- 1281 Sep, [facility] [address] [id number], [place] [address] Sep, [facility] [address] [id number] [place] [address]- 0056 Sep, [facility] [address] [id number] [place] [address]- 1834 Sep, [facility] [address] [id number] [place] [address]- 0505 Sep, [facility] [address] [id number] [place] [address]- 1065 Sep, [facility] [address] [id number] [place] [address]- 1776 Sep, [facility] [address] [id number] [place] [address] Sep, [facility] [address] [id number] [place] [address]- 9091 Sep, [facility] [address] [id number] [place] [address]- 1875 Sep, [facility] [address] [id number] [place] [address]- 0876 Aug, [facility] [address] [id number] [place] [address]- 4500 Aug, [facility] [address] [id number] [place] [address]- 8936 Aug, [facility] [address] [id number] [place] [address]- 1995 Aug, [facility] [address] [id number] [place] [address]- 5946 Jun, [facility] [address] [id number] [place] [address]- 2390 Jun, [facility] [address] [id number] [place] [address]- 9733 Mar, [facility] [address] [id number] [place] [address]- 1014 Mar, [facility] [address] [id number] [place] [address]- 7010 Nov, [facility] [address] [id number] [place] [address]- 5472 Sep, [facility] [address] [id number] [place] [address]- 4866 Jun, [facility] [address] [facility] [id number], [place] [address] Jun, [facility] [address] [id number], [place] [address] Apr, [facility] [address] [id number], [place] [address] 4210 Apr, [facility] [id number], [place] [address] Apr, [facility] [address] [id number] Mar, [facility] [address] [id number] [id number] Feb, IMMUNIZATIONS No Known Immunizations SOCIAL HISTORY Never Assessed REASON FOR VISIT Elevated BS PLAN OF CARE VITAL SIGNS MEDICATIONS Unknown [...]
[2018-08-13] MEDS ORDERED: KETOROLAC 60 MG/2 ML VIAL IM ONE (18:30)
--- NOTE | 2018-08-13 18:33 | ED Upper Extremity ---
General Chief Complaint: Upper Extremity Stated Complaint: SHOULDER,NECK PAIN Nursing Triage Note: PT PRESENTS TO ER WITH COMPLAINT OF RIGHT SIDED NECK AND SHOULDER PAIN FOR THE LAST TWO WEEKS. PT STATES SHE HAD AN INJECTION IN SAME AREA 1-2 MONTHS AGO FOR SAME PAIN. Nursing Sepsis Screen: No Definite Risk Source: patient Exam Limitations: no limitations History of Present Illness Date Seen by Provider: Aug 13, 2018 Time Seen by Provider: 18:09 Initial Comments The patient presents to ER by private conveyance with chief complaint of neck and shoulder pain bilaterally left worse than right. She says going on for about 2 weeks but she had an injection done in her left shoulder for the same pain 2 months ago by primary care. She also has had an MRI in the past showing a bulging disc in her neck. She was not followed up with physical therapy or orthopedics. She's on 6 her milligrams ibuprofen twice a day with her last dose being this morning. She says the injection helped her by numbing shoulder for about a day but then the next day and was back again. She says she's having no weakness but is having total numbness periodically in both of her upper extremities. No history of coronary disease clots not on blood thinners. No coldness in her hands. No swelling. No familial history of DVTs or blood clots. She thinks it is aggravated by her work. She works at [employer]. Allergies and Home Medications Allergies Coded Allergies: No Known Drug Allergies (Unverified , 08/15/12) Home Medications Acyclovir 400 Mg Tablet, 400 MG PO TID PRN for COLD SORE OUTBREAK, (Reported) Albuterol Sulfate 6.7 Gm Hfa.aer.ad, 2 PUFF IH Q4H PRN for SHORTNESS OF BREATH, (Reported) Atorvastatin Calcium 40 Mg Tablet, 40 MG PO HS, (Reported) Cephalexin 250 Mg Capsule, 500 MG PO QID Prescribed by: CHIN RUSH on 01/11/18 1015 Divalproex Sodium 500 Mg Tab.er.24h, 1,000 MG PO HS, (Reported) Divalproex Sodium 250 Mg Tab.er.24h, 250 MG PO DAILY, (Reported) Docusate Sodium 100 Mg Capsule, 100 MG PO BID PRN for CONSTIPATION Prescribed by: VENKAT LOOMIS on 04/29/15 0834 Haloperidol 10 Mg Tablet, 10 MG PO HS, (Reported) Haloperidol 5 Mg Tablet, 5 MG PO DAILY, (Reported) Hydroxyzine HCl 25 Mg Tablet, 25-50 MG PO DAILY, (Reported) Ibuprofen 600 Mg Tablet, 600 MG PO TID PRN for PAIN, (Reported) Ibuprofen 600 Mg Tablet, 600 MG PO Q6H Prescribed by: VENKAT LOOMIS on 04/29/15 0834 Insulin Aspart 300 Units/3 Ml Solution, 10 UNITS SQ AC Prescribed by: CHIN RUSH on 01/11/18 1015 Insulin Detemir 100 Unit/1 Ml Insuln.pen, 40 UNIT SQ HS Prescribed by: CHIN RUSH on 01/11/18 1015 Levothyroxine Sodium 75 Mcg Tablet, 75 MCG PO HS, (Reported) Metformin HCl 500 Mg Tab.er.24, 500 MG PO BID, (Reported) Paliperidone 9 Mg Tab.er.24, 9 MG PO DAILY, (Reported) Ranitidine HCl 150 Mg Capsule, 150 MG PO BID, (Reported) Terconazole 45 Gm Cream.appl, 1 UNIT TOP BID Prescribed by: CHIN RUSH on 01/11/18 1015 Trazodone HCl 150 Mg Tablet, 150 MG PO HS, (Reported) Triamcinolone Acet 15 Gm Cr, 1 UNIT TOP BID Prescribed by: CHIN RUSH on 01/11/18 1015 Patient Home Medication List Home Medication List Reviewed: Yes Review of Systems Constitutional: No chills, No fever EENTM: No hearing loss, No ear pain Respiratory: No cough, No short of breath Cardiovascular: No chest pain, No edema Gastrointestinal: No abdominal pain, No nausea Genitourinary: No discharge, No dysuria : No (Status post hysterectomy) Musculoskeletal: No back pain; neck pain Psychiatric/Neurological: Numbness (Bilateral upper extremities episodic), Paresthesia Past Wgibglq-Isqenn-Vrpmmx Hx Patient Social History Alcohol Use: Denies Use Recreational Drug Use: Yes Drug of Choice: THC Smoking Status: Current Everyday Smoker Type Used: Cigarettes Recent Foreign Travel: No Contact w/Someone Who Travel: No Recent Infectious Disease Expo: No Recent Hopitalizations: No Immunizations Up To Date Tetanus Booster (TDap): Unknown PED Vaccines UTD: Yes Seasonal Allergies Seasonal Allergies: No Past Medical History Surgeries: Yes Bladder Surgery, Hysterectomy Respiratory: Yes Asthma Cardiac: Yes High Cholesterol Neurological: No Reproductive Disorders: Yes (CPP,SUDHEER III) Female Reproductive Disorders: Endometriosis 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 OCCASIONAL DIARRHEA) Gastroesophageal Reflux Musculoskeletal: Yes Arthritis, Chronic Back Pain Endocrine: Yes (NEW DX OF DIABETES 01/09/18) Diabetes, Non-Insulin dep HEENT: No Cancer: No Psychosocial: Yes Sleep Difficulties, Anxiety, PTSD, Personality Disorder, Schizophrenia, Depression Integumentary: No Blood Disorders: No Adverse Reaction/Blood Tranf: No Family Medical History Alcoholism 19 FATHER Thyroid disease 19 MOTHER No Pertinent Family Hx Physical Exam Vital Signs Vital Signs - First Documented 08/13/18 18:14 Pulse 98 Resp 20 B/P (MAP) 144/98 (113) Pulse Ox 96 O2 Delivery Room Air Capillary Refill : Less Than 3 Seconds Height, Weight, BMI Height: 5'2.00" Weight: 260lbs. 5.0oz. 117.315359oz; 40.5 BMI Method:Stated General Appearance: WD/WN, no apparent distress HEENT: PERRL/EOMI, normal ENT inspection, pharynx normal Neck: full range of motion, supple, normal inspection, tender lateral ( Bilaterally at all levels), tender midline (C5 through C7) Cardiovascular: normal peripheral pulses, regular rate, rhythm Respiratory: chest non-tender, lungs clear, normal breath sounds, no respiratory distress, no accessory muscle use Shoulder: normal inspection, non-tender, no evidence of injury, normal ROM (No evidence of injury to rotator cuff muscles) Neurologic/Tendon: normal sensation, normal motor functions, normal tendon functions, responds to pain, no evidence tendon injury Neurologic/Psychiatric: no motor/sensory deficits, alert, normal mood/affect, oriented x 3, other (No motor or sensory deficits noted today in the upper extremity. She is having symmetric 5 out of 5 motor strength upper and lower extremities. Normal gait. Bilateral patellar reflexes are symmetric, 1 out of 4. biceps and brachioradialis are symmetric, 2 out of 4) Skin: normal color, warm/dry Progress/Results/Core Measures Results/Orders Vital Signs/I&O 08/13/18 18:14 Pulse 98 Resp 20 B/P (MAP) 144/98 (113) Pulse Ox 96 O2 Delivery Room Air Blood Pressure Mean: 113 Progress Progress Note : Time: 18:33 Progress Note Review of the MRI from May,, respiratory 3 months ago demonstrated stable C6-C7 wide-based disc bulge with minimal flattening of the thecal sac and no direct impingement of nerves. It was stable from 2017 imaging of the C- spine. It's possible she's having some aggravated inflammation in her neck causing some radiculopathy and she's been taking an adequate dose of NSAIDs. We can put her on Low-dose steroids and increase her NSAIDs to prescription Naprosyn. Put her on light duty for the rest the week at her job and use conservative therapy. Follow-up with primary care to discuss further workup and management of her symptoms. Diagnostic Imaging Diagonstic Imaging: MRI (05/2018) Comments NAME: DHRUV JIMÉNEZ [facility] REC#: [id number] PHYSICIAN: CHAS OLIVIER APRN CC: CHAS OLIVIER APRN; AILYN DELAROSA DO Page 2 of 2 RADIOLOGY REPORT [facility] [place] [place] CC: CHAS OLIVIER APRN; AILYN DELAROSA DO Page 1 of 1 RADIOLOGY REPORT NAME: DHRUV JIMÉNEZ [facility] REC#: [id number] PT STATUS: REG CLI : 1985 PHYSICIAN: CHAS OLIVIER APRN ADMIT DATE: 05/28/18/RAD Signed Date of Exam: 05/28/18 MRI CERVICAL SPINE W/O CONTRAS PROCEDURE: MR imaging cervical spine without contrast. INDICATION: Chronic neck pain. TECHNIQUE: Multiplanar, multisequence MR imaging of the cervical spine was performed without contrast. CORRELATION STUDY: 10/23/2014 FINDINGS: Cervical spine alignment anatomic. Cervical vertebral body heights are maintained. Odontoid intact. Craniocervical junction unremarkable. The cord is of normal caliber and signal intensity. C2-C3 level: Unremarkable. C3-C4 level: Unremarkable. C4-C5 level: Unremarkable. C5-C6 level: Unremarkable. C6-C7 level: There is again seen broad-based disc bulge. There is some flattening of the ventral thecal sac. AP dimension of the spinal canal at 9 mm. No significant mass effect or displacement of the cord. Foramina without significant stenosis. C7-T1 level: Unremarkable. IMPRESSION: 1. Broad based disc bulge at C6-C7 level with slight flattening of the ventral thecal sac and very mild narrowing of AP dimension of the spinal canal. No significant mass effect upon the cord. Findings relatively stable from prior imaging. Dictated by: Dictated on workstation # [id number] Dict: 05/28/18 1705 Trans: 05/29/1807 Interpreted by: AILYN DELAROSA DO Electronically signed by: AILYN DELAROSA DO 05/29/18806 Reviewed: Reviewed/Discussed Departure Impression Primary Impression: Cervical myofascial strain Qualified Codes: S16.1XXA - Strain of muscle, fascia and tendon at neck level , initial encounter Additional Impression: Cervical radiculopathy, acute Disposition: 01 HOME, SELF-CARE Condition: Stable Departure-Patient Inst. Decision time for Depature: 18:37 Referrals: ADELA VILLAFUERTE MD (PCP/Family) Primary Care Physician Patient Instructions: Active Range of Motion Exercises, Neck and Shoulders, Cervical Muscle Strain (DC) Add. Discharge Instructions: Use heat applied directly to your neck when available. While at work you can use creams such as icy hot, Biofreeze, blue emu etc. Stop taking the ibuprofen. Start taking the prescription Naprosyn twice a day for the next 2 weeks. If you have breakthrough pain you can use the Tylenol 1000 mg every 8 hours as needed. Start taking the prednisone 2 tablets daily for the next 5 days. Prednisone may increase her blood sugar temporarily but it will go back to normal once you are off the steroid. No lifting over 20 pounds for one week. Follow-up with primary care in 2-4 weeks for reevaluation and continued management of your neck pain. All discharge instructions reviewed with patient and/or family. Voiced understanding. Scripts Prednisone (Prednisone) 20 Mg Tab 40 MG PO DAILY for 5 Days, #10 TAB 0 Refills Prov: TRICE GALO 08/13/18 Naproxen (Naprosyn) 500 Mg Tablet 500 MG PO BID for 14 Days, #30 TAB 0 Refills Prov: TRICE GALO 08/13/18 Work/School Note: Work Release Form Date Seen in the Emergency Department: Aug 13, 2018 Return to Work: Aug 14, 2018 Restrictions: Need Release from Doctor Other Restrictions Listed Below: No lifting over 20 pounds until 08/20/18. TRICE GALO Aug 13, 2018 18:33
--- OUTSIDE RECORDS SUMMARY | 2018-08-13 18:34 | XMS REPORT | Continuity of Care Document ---
Author Author Count Includes [facility] Address Unknown Phone Unavailable Allergies Active Description Code Type Severity Reaction Onset Reported/Identified Relationship to Patient Clinical Status Yes NO KNOWN DRUG ALLERGIES NO KNOWN DRUG ALLERG UNKNOWN Yes NO KNOWN DRUG ALLERGIES UNKNOWN NO KNOWN DRUG ALLERG Yes No Known Drug Allergies [id number] Drug Allergy Unknown N/A 02/08/2012 Yes Seroquel [...] WILKINS TIFFANY 691.8 DERMATITIS ATOPIC ECZEMA 12/18/2009 SHIRA NICHOLS APRNETTE 691.8 DERMATITIS ATOPIC ECZEMA 12/18/2009 LANDRY MA MD 691.8 DERMATITIS ATOPIC ECZEMA 12/18/2009 LANDRY MA MD 691.8 DERMATITIS ATOPIC ECZEMA 12/18/2009 RADHA HAY, KAMILLA Galarza 691.8 DERMATITIS ATOPIC ECZEMA 12/18/2009 SIMONE WILKINS, TIFFANY 691.8 DERMATITIS ATOPIC ECZEMA 12/18/2009 ARTURO MASON DO 691.8 DERMATITIS ATOPIC ECZEMA 12/18/2009 RADHA HAY, KAMILLA Galarza 691.8 DERMATITIS ATOPIC ECZEMA 12/18/2009 SIMONE WILKINS, TIFFNAY 691.8 DERMATITIS ATOPIC ECZEMA 12/18/2009 SIMONE BARN HAND, TIFFANY 691.8 DERMATITIS ATOPIC ECZEMA 12/18/2009 SIMONE BARN HAND, TIFFANY 691.8 DERMATITIS ATOPIC ECZEMA 12/18/2009 SIMONE BARN HAND, TIFFANY 691.8 DERMATITIS ATOPIC ECZEMA 12/18/2009 SIMONE BARN HAND, TIFFANY 691.8 DERMATITIS ATOPIC ECZEMA 12/18/2009 SIMONE BARN HAND, TIFFANY 691.8 DERMATITIS ATOPIC ECZEMA 12/18/2009 SIMONE BARN HAND, TIFFANY 691.8 DERMATITIS ATOPIC ECZEMA 12/18/2009 SIMONE BARN HAND, TIFFANY 691.8 DERMATITIS ATOPIC ECZEMA 12/18/2009 SIMONE BARN HAND, TIFFANY 691.8 DERMATITIS ATOPIC ECZEMA 12/18/2009 ANTHONY BARN HAND, JUSTIN R 691.8 DERMATITIS ATOPIC ECZEMA 12/18/2009 ANTHONY BARN HAND, JUSTIN R 691.8 DERMATITIS ATOPIC ECZEMA 12/18/2009 ANTHONY BARN HAND, JUSTIN R 691.8 DERMATITIS ATOPIC ECZEMA 12/18/2009 SIMONE BARN HAND, TIFFANY 691.8 DERMATITIS ATOPIC ECZEMA 02/24/2010 278.00 OBESITY, UNSPECIFIED 02/24/2010 IVAN DDS, ROSALVA N 278.00 OBESITY, UNSPECIFIED 02/24/2010 COREY LOMAX BARN HAND, CHRISTIANO N 278.00 OBESITY, UNSPECIFIED 02/24/2010 CHRISTO TORRES, ADELA N 278.00 OBESITY, UNSPECIFIED 02/24/2010 RADHA PHD, KAMILLA Galarza 278.00 OBESITY, UNSPECIFIED 02/24/2010 SIMONE BARN HAND, TIFFANY 278.00 OBESITY, UNSPECIFIED 02/24/2010 SIMONE BARN HAND, TIFFANY 278.00 OBESITY, UNSPECIFIED 02/24/2010 ANIL TORRES, LANDRY 278.00 OBESITY, UNSPECIFIED 02/24/2010 ANIL TORRES, LANDRY 278.00 OBESITY, UNSPECIFIED 02/24/2010 RADHA PHD, KAMILLA Galarza 278.00 OBESITY, UNSPECIFIED 02/24/2010 SIMONE BARN HAND, TIFFANY 278.00 OBESITY, UNSPECIFIED 02/24/2010 ARTURO MASON DO 278.00 OBESITY, UNSPECIFIED 02/24/2010 RADHA PHD, KAMILLA Galarza 278.00 OBESITY, UNSPECIFIED 02/24/2010 SIMONE BARN HAND, TIFFANY 278.00 OBESITY, UNSPECIFIED 02/24/2010 SIMONE BARN HAND, TIFFANY 278.00 OBESITY, UNSPECIFIED 02/24/2010 SIMONE BARN HAND, TIFFANY 278.00 OBESITY, UNSPECIFIED 02/24/2010 SIMONE BARN HAND, TIFFANY 278.00 OBESITY, UNSPECIFIED 02/24/2010 SIMONE BARN HAND, TIFFANY 278.00 OBESITY, UNSPECIFIED 02/24/2010 SIMONE BARN HAND, TIFFANY 278.00 OBESITY, UNSPECIFIED 02/24/2010 SIMONE BARN HAND, TIFFANY 278.00 OBESITY, UNSPECIFIED 02/24/2010 SIMONE BARN HAND, TIFFANY 278.00 OBESITY, UNSPECIFIED 02/24/2010 SIMONE BARN HAND, TIFFANY 278.00 OBESITY, UNSPECIFIED 02/24/2010 ANTHONY BARN HAND, JUSTIN R 278.00 OBESITY, UNSPECIFIED 02/24/2010 ANTHONY BARN HAND, JUSTIN R 278.00 OBESITY, UNSPECIFIED 02/24/2010 ANTHONY BARN HAND, JUSTIN R 278.00 OBESITY, UNSPECIFIED 02/24/2010 SIMONE BARN HAND, TIFFANY 278.00 OBESITY, UNSPECIFIED 03/18/2010 622.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 03/18/2010 V72.31 ROUTINE GYNECOLOGICAL EXAMINATION 03/18/2010 IVAN DDS, ROSALVA N 622.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 03/18/2010 EDUHALU DDS, ROSALVA N V72.31 ROUTINE GYNECOLOGICAL EXAMINATION 03/18/2010 NICOLE CASHERO BARN HAND, CHRISTIANO N 622.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 03/18/2010 NICOLE CASHERO BARN HAND, CHRISTIANO N V72.31 ROUTINE GYNECOLOGICAL EXAMINATION 03/18/2010 CHRISTO TORRES, ADELA N 622.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 03/18/2010 ADELA VILLAFUERTE MD N V72.31 ROUTINE GYNECOLOGICAL EXAMINATION 03/18/2010 RADHA HAY, KAMILLA Galarza 622.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 03/18/2010 RADHA HAY, KAMILLA Galarza V72.31 ROUTINE GYNECOLOGICAL EXAMINATION 03/18/2010 SIMONE BARN HAND, TIFFANY 622.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 03/18/2010 SIMONE BARN HAND, TIFFANY V72.31 ROUTINE GYNECOLOGICAL EXAMINATION 03/18/2010 SIMONE BARN HAND, TIFFANY 622.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 03/18/2010 SIMONE BARN HAND, TIFFANY V72.31 ROUTINE GYNECOLOGICAL EXAMINATION 03/18/2010 LANDRY MA MD 622.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 03/18/2010 LANDRY MA MD V72.31 ROUTINE GYNECOLOGICAL EXAMINATION 03/18/2010 LANDRY MA MD 622.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 03/18/2010 LANDRY MA MD V72.31 ROUTINE GYNECOLOGICAL EXAMINATION 03/18/2010 RADHA HAY, KAMILLA Galarza 622.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 03/18/2010 RADHA HAY, KAMILLA Galarza V72.31 ROUTINE GYNECOLOGICAL EXAMINATION 03/18/2010 SIMONE BARN HAND, TIFFANY 622.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 03/18/2010 SIMONE BARN HAND, TIFFANY V72.31 ROUTINE GYNECOLOGICAL EXAMINATION 03/18/2010 MASON DO, ARTURO K 622.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 03/18/2010 MASON DO, ARTURO K V72.31 ROUTINE GYNECOLOGICAL EXAMINATION 03/18/2010 RADHA HAY, KAMILLA Galarza 622.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 03/18/2010 RADHA HAY, KAMILLA Galarza V72.31 ROUTINE GYNECOLOGICAL EXAMINATION 03/18/2010 SIMONE BARN HAND, TIFFANY 622.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 03/18/2010 SIMONE BARN HAND, TIFFANY V72.31 ROUTINE GYNECOLOGICAL EXAMINATION 03/18/2010 SIMONE BARN HAND, TIFFANY 622.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 03/18/2010 SIMONE BARN HAND, TIFFANY V72.31 ROUTINE GYNECOLOGICAL EXAMINATION 03/18/2010 SIMONE BARN HAND, TIFFANY 622.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 03/18/2010 SIMONE BARN HAND, TIFFANY V72.31 ROUTINE GYNECOLOGICAL EXAMINATION 03/18/2010 SIMONE BARN HAND, TIFFANY 622.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 03/18/2010 SIMONE BARN HAND, TIFFANY V72.31 ROUTINE GYNECOLOGICAL EXAMINATION 03/18/2010 SIMONE BARN HAND, TIFFANY 622.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 03/18/2010 SIMONE BARN HAND, TIFFANY V72.31 ROUTINE GYNECOLOGICAL EXAMINATION 03/18/2010 SIMONE BARN HAND, TIFFANY 622.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 03/18/2010 SIMONE BARN HAND, TIFFANY V72.31 ROUTINE GYNECOLOGICAL EXAMINATION 03/18/2010 SIMONE BARN HAND, TIFFANY 622.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 03/18/2010 SIMONE BARN HAND, TIFFANY V72.31 ROUTINE GYNECOLOGICAL EXAMINATION 03/18/2010 SIMONE BARN HAND, TIFFANY 622.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 03/18/2010 SIMONE BARN HAND, TIFFANY V72.31 ROUTINE GYNECOLOGICAL EXAMINATION 03/18/2010 SIMONE BARN HAND, TIFFANY 622.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 03/18/2010 SIMONE BARN HAND, TIFFANY V72.31 ROUTINE GYNECOLOGICAL EXAMINATION 03/18/2010 ANTHONY BARN HAND, JUSTIN R 622.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 03/18/2010 ANTHONY BARN HAND, JUSTIN R V72.31 ROUTINE GYNECOLOGICAL EXAMINATION 03/18/2010 ANTHONY BARN HAND, JUSITN R 622.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 03/18/2010 ANTHONY BARN HAND, JUSTIN R V72.31 ROUTINE GYNECOLOGICAL EXAMINATION 03/18/2010 ANTHONY BARN HAND, JUSTIN R 622.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 03/18/2010 ANTHONY BARN HAND, JUSTIN R V72.31 ROUTINE GYNECOLOGICAL EXAMINATION 03/18/2010 SIMONE BARN HAND, TIFFANY 622.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 03/18/2010 SIMONE BARN HAND, TIFFANY V72.31 ROUTINE GYNECOLOGICAL EXAMINATION 02/14/2012 Ot [...] WITHOUT MENTION OF STATUS MIGRAINOSUS 07/16/2013 SIMONE BARN HAND, TIFFANY 346.90 MIGRAINE UNSPECIFIED WITHOUT MENTION OF INTRACTABLE MIGRAINE WITHOUT MENTION OF STATUS MIGRAINOSUS 07/16/2013 ARTURO MASON DO 346.90 MIGRAINE UNSPECIFIED WITHOUT MENTION OF INTRACTABLE MIGRAINE WITHOUT MENTION OF STATUS MIGRAINOSUS 07/16/2013 RADHA HAY, KAMILLA Galarza 346.90 MIGRAINE UNSPECIFIED WITHOUT MENTION OF INTRACTABLE MIGRAINE WITHOUT MENTION OF STATUS MIGRAINOSUS 07/16/2013 SIMONE BARN HAND, TIFFANY 346.90 MIGRAINE UNSPECIFIED WITHOUT MENTION OF INTRACTABLE MIGRAINE WITHOUT MENTION OF STATUS MIGRAINOSUS 07/16/2013 SIMONE BARN HAND, TIFFANY 346.90 MIGRAINE UNSPECIFIED WITHOUT MENTION OF INTRACTABLE MIGRAINE WITHOUT MENTION OF STATUS MIGRAINOSUS 07/16/2013 SIMONE BARN HAND, TIFFANY 346.90 MIGRAINE UNSPECIFIED WITHOUT MENTION OF INTRACTABLE MIGRAINE WITHOUT MENTION OF STATUS MIGRAINOSUS 07/16/2013 SIMONE BARN HAND, TIFFANY 346.90 MIGRAINE UNSPECIFIED WITHOUT MENTION OF INTRACTABLE MIGRAINE WITHOUT MENTION OF STATUS MIGRAINOSUS 07/16/2013 SIMONE BARN HAND, TIFFANY 346.90 MIGRAINE UNSPECIFIED WITHOUT MENTION OF INTRACTABLE MIGRAINE WITHOUT MENTION OF STATUS MIGRAINOSUS 07/16/2013 SIMONE BARN HAND, TIFFANY 346.90 MIGRAINE UNSPECIFIED WITHOUT MENTION OF INTRACTABLE MIGRAINE WITHOUT MENTION OF STATUS MIGRAINOSUS 07/16/2013 SIMONE BARN HAND, TIFFANY 346.90 MIGRAINE UNSPECIFIED WITHOUT MENTION OF INTRACTABLE MIGRAINE WITHOUT MENTION OF STATUS MIGRAINOSUS 07/16/2013 SIMONE BARN HAND, TIFFANY 346.90 MIGRAINE UNSPECIFIED WITHOUT MENTION OF INTRACTABLE MIGRAINE WITHOUT MENTION OF STATUS MIGRAINOSUS 07/16/2013 SIMONE BARN HAND, TIFFANY 346.90 MIGRAINE UNSPECIFIED WITHOUT MENTION OF INTRACTABLE MIGRAINE WITHOUT MENTION OF STATUS MIGRAINOSUS 07/16/2013 ANTHONY WILKINS JUSTIN R 346.90 MIGRAINE UNSPECIFIED WITHOUT MENTION OF INTRACTABLE MIGRAINE WITHOUT MENTION OF STATUS MIGRAINOSUS 07/16/2013 ANTHONY WILKISN JUSTIN R 346.90 MIGRAINE UNSPECIFIED WITHOUT MENTION OF INTRACTABLE MIGRAINE WITHOUT MENTION OF STATUS MIGRAINOSUS 07/16/2013 ANTHONY WILKINS JUSTIN R 346.90 MIGRAINE UNSPECIFIED WITHOUT MENTION OF INTRACTABLE MIGRAINE WITHOUT MENTION OF STATUS MIGRAINOSUS 07/16/2013 SIMONE BARN HAND, TIFFANY 346.90 MIGRAINE UNSPECIFIED WITHOUT MENTION OF INTRACTABLE MIGRAINE WITHOUT MENTION OF STATUS MIGRAINOSUS 09/06/2013 SIMONE BARN HAND, TIFFANY 300.00 AN ANXIETY UNSPEC 09/06/2013 SIMONE BARN HAND, TIFFANY 300.00 AN ANXIETY UNSPEC 09/06/2013 LANDRY MA MD 300.00 AN ANXIETY UNSPEC 09/06/2013 LANDRY MA MD 300.00 AN ANXIETY UNSPEC 09/06/2013 RADHA HAY, KAMILLA Galarza 300.00 AN ANXIETY UNSPEC 09/06/2013 SIMONE BARN HAND, TIFFANY 300.00 AN ANXIETY UNSPEC 09/06/2013 ARTURO MASON DO 300.00 AN ANXIETY UNSPEC 09/06/2013 RADHA HAY, KAMILLA A 300.00 AN ANXIETY UNSPEC 09/06/2013 SIMONE BARN HAND, TIFFANY 300.00 AN ANXIETY UNSPEC 09/06/2013 SIMONE BARN HAND, TIFFANY 300.00 AN ANXIETY UNSPEC 09/06/2013 SIMONE BARN HAND, TIFFANY 300.00 AN ANXIETY UNSPEC 09/06/2013 SIMONE BARN HAND, TIFFANY 300.00 AN ANXIETY UNSPEC 09/06/2013 SIMONE BARN HAND, TIFFANY 300.00 AN ANXIETY UNSPEC 09/06/2013 SIMONE BARN HAND, TIFFANY 300.00 AN ANXIETY UNSPEC 09/06/2013 SIMONE BARN HAND, TIFFANY 300.00 AN ANXIETY UNSPEC 09/06/2013 SIMONE BARN HAND, TIFFANY 300.00 AN ANXIETY UNSPEC 09/06/2013 SIMONE BARN HAND, TIFFANY 300.00 AN ANXIETY UNSPEC 09/06/2013 MT CRUZ APRNINA R 300.00 AN ANXIETY UNSPEC 09/06/2013 MT CRUZ APRNINA R 300.00 AN ANXIETY UNSPEC 09/06/2013 ANTHONY WILKINS JUSTIN R 300.00 AN ANXIETY UNSPEC 09/06/2013 SIMONE BARN HAND, TIFFANY 300.00 AN ANXIETY UNSPEC 09/17/2013 RADHA HAY, AKMILLA Galarza 300.00 AN ANXIETY UNSPEC 09/17/2013 SIMONE BARN HAND, TIFFANY 300.00 AN ANXIETY UNSPEC 09/17/2013 SIMONE BARN HAND, TIFFANY 300.00 AN ANXIETY UNSPEC 09/17/2013 LANDRY MA MD 300.00 AN ANXIETY UNSPEC 09/17/2013 ANIL TORRES LANDRY 300.00 AN ANXIETY UNSPEC 09/17/2013 RADHA PHD, KAMILLA Galarza 300.00 AN ANXIETY UNSPEC 09/17/2013 SIMONE BARN HAND, TIFFANY 300.00 AN ANXIETY UNSPEC 09/17/2013 ARTURO MASON DO 300.00 AN ANXIETY UNSPEC 09/17/2013 RADHA PHD, KAMILLA A 300.00 AN ANXIETY UNSPEC 09/17/2013 SIMONE BARN HAND, TIFFANY 300.00 AN ANXIETY UNSPEC 09/17/2013 SIMONE BARN HAND, TIFFANY 300.00 AN ANXIETY UNSPEC 09/17/2013 SIMONE BARN HAND, TIFFANY 300.00 AN ANXIETY UNSPEC 09/17/2013 SIMONE BARN HAND, TIFFANY 300.00 AN ANXIETY UNSPEC 09/17/2013 SIMONE BARN HAND, TIFFANY 300.00 AN ANXIETY UNSPEC 09/17/2013 SIMONE BARN HAND, TIFFANY 300.00 AN ANXIETY UNSPEC 09/17/2013 SIMONE BARN HAND, TIFFANY 300.00 AN ANXIETY UNSPEC 09/17/2013 SIMONE BARN HAND, TIFFANY 300.00 AN ANXIETY UNSPEC 09/17/2013 SIMONE BARN HAND, TIFFANY 300.00 AN ANXIETY UNSPEC 09/17/2013 ANTHONY BARN HAND, JUSTIN R 300.00 AN ANXIETY UNSPEC 09/17/2013 ANTHONY BARN HAND, JUSTIN R 300.00 AN ANXIETY UNSPEC 09/17/2013 ANTHONY BARN HAND, JUSTIN R 300.00 AN ANXIETY UNSPEC 09/17/2013 SIMONE BARN HAND, TIFFANY 300.00 AN ANXIETY UNSPEC 11/22/2013 SIMONE BARN HAND, TIFFANY 295.70 P SCHIZO AFFECTIVE 11/22/2013 ARTURO MASON DO 295.70 P SCHIZO AFFECTIVE 11/22/2013 RADHA PHD, KAMILLA A 295.70 P SCHIZO AFFECTIVE 11/22/2013 SIMONE BARN HAND, TIFFANY 295.70 P SCHIZO AFFECTIVE 11/22/2013 SIMONE BARN HAND, TIFFANY 295.70 P SCHIZO AFFECTIVE 11/22/2013 SIMONE BARN HAND, TIFFANY 295.70 P SCHIZO AFFECTIVE 11/22/2013 SIMONE BARN HAND, TIFFANY 295.70 P SCHIZO AFFECTIVE 11/22/2013 SIMONE BARN HAND, TIFFANY 295.70 P SCHIZO AFFECTIVE 11/22/2013 SIMONE BARN HAND, TIFFANY 295.70 P SCHIZO AFFECTIVE 11/22/2013 SIMONE BARN HAND, TIFFANY 295.70 P SCHIZO AFFECTIVE 11/22/2013 SIMONE BARN HAND, TIFFANY 295.70 P SCHIZO AFFECTIVE 11/22/2013 SIMONE BARN HAND, TIFFANY 295.70 P SCHIZO AFFECTIVE 11/22/2013 ANTHONY BARN HAND, JUSTIN R 295.70 P SCHIZO AFFECTIVE 11/22/2013 ANTHONY BARN HAND, JUSTIN R 295.70 P SCHIZO AFFECTIVE 11/22/2013 ANTHONY BARN HAND, JUSTIN R 295.70 P SCHIZO AFFECTIVE 11/22/2013 SIMONE BARN HAND, TIFFANY 295.70 P SCHIZO AFFECTIVE 01/06/2014 SIMONE BARN HAND, TIFFANY 300.82 SO SOMATOFORM NOS 01/06/2014 SIMONE BARN HAND, TIFFANY 300.9 PSYCHIATRIC DISORDERS 01/06/2014 SIMONE BARN HAND, TIFFANY 300.82 SO SOMATOFORM NOS 01/06/2014 SIMONE BARN HAND, TIFFANY 300.9 PSYCHIATRIC DISORDERS 01/06/2014 SIMONE BARN HAND, TIFFANY 300.82 SO SOMATOFORM NOS 01/06/2014 SIMONE BARN HAND, TIFFANY 300.9 PSYCHIATRIC DISORDERS 01/06/2014 SIMONE BARN HAND, TIFFANY 300.82 SO SOMATOFORM NOS 01/06/2014 SIMONE BARN HAND, TIFFANY 300.9 PSYCHIATRIC DISORDERS 01/06/2014 SIMONE BARN HAND, TIFFANY 300.82 SO SOMATOFORM NOS 01/06/2014 SIMONE BARN HAND, TIFFANY 300.9 PSYCHIATRIC DISORDERS 01/06/2014 SIMONE BARN HAND, TIFFANY 300.82 SO SOMATOFORM NOS 01/06/2014 SIMONE BARN HAND, TIFFANY 300.9 PSYCHIATRIC DISORDERS 01/06/2014 SIMONE BARN HAND, TIFFANY 300.82 SO SOMATOFORM NOS 01/06/2014 SIMONE BARN HAND, TIFFANY 300.9 PSYCHIATRIC DISORDERS 01/06/2014 SIMONE BARN HAND, TIFFANY 300.82 SO SOMATOFORM NOS 01/06/2014 SIMONE BARN HAND, TIFFANY 300.9 PSYCHIATRIC DISORDERS 01/06/2014 SIMONE BARN HAND, TIFFANY 300.82 SO SOMATOFORM NOS 01/06/2014 SIMONE BARN HAND, TIFFANY 300.9 PSYCHIATRIC DISORDERS 01/06/2014 ANTHONY BARN HAND, JUSTIN R 300.82 SO SOMATOFORM NOS 01/06/2014 ANTHONY BARN HAND, JUSTIN R 300.9 PSYCHIATRIC DISORDERS 01/06/2014 ANTHONY BARN HAND, JUSTIN R 300.82 SO SOMATOFORM NOS 01/06/2014 ANTHONY BARN HAND, JUSTIN R 300.9 PSYCHIATRIC DISORDERS 01/06/2014 ANTHONY BARN HAND, JUSTIN R 300.82 SO SOMATOFORM NOS 01/06/2014 ANTHONY BARN HAND, JUSTIN R 300.9 PSYCHIATRIC DISORDERS 01/06/2014 SIMONE BARN HAND, TIFFANY 300.82 SO SOMATOFORM NOS 01/06/2014 SIMONE BARN HAND, TIFFANY 300.9 PSYCHIATRIC DISORDERS 02/06/2014 SIOMNE BARN HAND, TIFFANY 295.10 P SCHIZO DISORG UNSPECIFIED 02/06/2014 SIMONE BARN HAND, TIFFANY 295.10 P SCHIZO DISORG UNSPECIFIED 02/06/2014 SIMONE BARN HAND, TIFFANY 295.10 P SCHIZO DISORG UNSPECIFIED 02/06/2014 SIMONE BARN HAND, TIFFANY 295.10 P SCHIZO DISORG UNSPECIFIED 02/06/2014 SIMONE BARN HAND, TIFFANY 295.10 P SCHIZO DISORG UNSPECIFIED 02/06/2014 SIMONE BARN HAND, TIFFANY 295.10 P SCHIZO DISORG UNSPECIFIED 02/06/2014 SIMONE BARN HAND, TIFFANY 295.10 P SCHIZO DISORG UNSPECIFIED 02/06/2014 SIMONE BARN HAND, TIFFANY 295.10 P SCHIZO DISORG UNSPECIFIED 02/06/2014 ANTHONY WILKINS JUSTIN R 295.10 P SCHIZO DISORG UNSPECIFIED 02/06/2014 ANTHONY WILKINS, JUSTIN R 295.10 P SCHIZO DISORG UNSPECIFIED 02/06/2014 ANTHONY WILKINS JUSTIN R 295.10 P SCHIZO DISORG UNSPECIFIED 02/06/2014 SIMONE BARN HAND, TIFFANY 295.10 P SCHIZO DISORG UNSPECIFIED 05/23/2014 SIMONE BARN HAND, TIFFANY 307.42 PERSISTENT DISORDER OF INITIATING OR MAINTAINING SLEEP 05/23/2014 SIMONE BARN HAND, TIFFANY 307.42 PERSISTENT DISORDER OF INITIATING OR MAINTAINING SLEEP 05/23/2014 SIMONE BARN HAND, TIFFANY 307.42 PERSISTENT DISORDER OF INITIATING OR MAINTAINING SLEEP 05/23/2014 ANTHONY WILKINS JUSTIN R 307.42 PERSISTENT DISORDER OF INITIATING OR MAINTAINING SLEEP 05/23/2014 ANTHONY WILKINS JUSTIN R 307.42 PERSISTENT DISORDER OF INITIATING OR MAINTAINING SLEEP 05/23/2014 ANTHONY BARN HAND, JUSTIN R 307.42 PERSISTENT DISORDER OF INITIATING [...] Fernandez Ot 242.90 10/24/2014 JUSTIN CRUZ R BARN HAND Ot 721.3 10/24/2014 ANTHONY JUSTIN R BARN HAND Ot 722.0 11/13/2014 Ot 622.12 11/13/2014 Ot V72.63 11/13/2014 Ot V74.8 11/13/2014 MAICOL TORRES, MANJIT Fernandez Ot 242.90 11/13/2014 JUSTIN CRUZ R BARN HAND Ot 721.3 11/13/2014 JUSTIN CRUZ R BARN HAND Ot 722.0 11/13/2014 VIOLETA BRYSON MD Ot 295.90 SCHIZOPHRENIA NOS-UNSPEC 11/13/2014 VIOLETA BRYSON MD Ot 300.00 ANXIETY STATE NOS 11/13/2014 VIOLETA BRYSON MD Ot 305.1 TOBACCO USE DISORDER 11/13/2014 VIOLETA BRYSON MD Ot 311 DEPRESSIVE DISORDER NEC 11/13/2014 VIOLETA BRYSON MD Ot 722.0 CERVICAL DISC DISPLACMNT 12/08/2014 JUSTIN CRUZ R BARN HAND Ot 721.3 12/08/2014 ANTHONY JUSTIN R BARN HAND Ot 722.0 03/10/2015 Ot 622.12 03/10/2015 Ot V72.63 03/10/2015 Ot V74.8 03/10/2015 MAICOL TORRES, MANJIT Fernandez Ot 242.90 03/10/2015 JUSTIN CRUZ R BARN HAND Ot 721.3 03/10/2015 JUSTIN CRUZ R BARN HAND Ot 722.0 03/20/2015 DEVORAH BANEGAS HUMANE OFFICER Ot 625.9 03/31/2015 DEVORAH BANEGAS HUMANE OFFICER Ot 625.9 04/23/2015 Ot 622.12 04/23/2015 Ot V72.63 04/23/2015 Ot V74.8 04/23/2015 MAICOL TORRES, MANJIT Fernandez Ot 242.90 04/23/2015 JUSTIN CRUZ R BARN HAND Ot 721.3 04/23/2015 ANTHONY JUSTIN R BARN HAND Ot 722.0 04/23/2015 DEVORAH BANEGAS HUMANE OFFICER Ot 625.9 04/29/2015 VENKAT LOOMIS DO Ot [...] THYROTOX NOS NO CRISIS 07/23/2016 JUSTIN CRUZ BARN HAND Ot 721.3 LUMBOSACRAL SPONDYLOSIS 07/23/2016 JUSTIN CRUZ BARN HAND Ot 722.0 CERVICAL DISC DISPLACMNT 07/23/2016 DEVORAH BANEGAS HUMANE OFFICER Ot 625.9 FEM GENITAL SYMPTOMS NOS 07/23/2016 VLADISLAV VILLAFUERTE EVNKAT C Ot N80.9 ENDOMETRIOSIS, UNSPECIFIED 07/23/2016 VENKAT LOOMIS DO Ot Z01.812 ENCOUNTER FOR PREPROCEDURAL LABORATORY E 07/23/2016 VENKAT LOOMIS DO Ot Z11.2 ENCOUNTER FOR SCREENING FOR OTHER BACTER 07/24/2016 LISA TORRES, DERICK Roach Ot F17.210 NICOTINE DEPENDENCE, CIGARETTES, UNCOMPL 07/24/2016 DERICK GONZALEZ MD Ot F20.9 SCHIZOPHRENIA, UNSPECIFIED 07/24/2016 DERICK GONZALEZ MD Ot F23 BRIEF PSYCHOTIC DISORDER 07/24/2016 DERICK GONZALEZ MD Ot Z79.899 OTHER SHELTER (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 07/24/2016 DERICK GONZALEZ MD, Ot Z91.14 PATIENT'S OTHER NONCOMPLIANCE WITH MEDIC 07/29/2016 DERICK GONZALEZ MD Ot F17.210 NICOTINE DEPENDENCE, CIGARETTES, UNCOMPL 07/29/2016 DERICK GONZALEZ MD Ot F20.9 SCHIZOPHRENIA, UNSPECIFIED 07/29/2016 DERICK GONZALEZ MD Ot F23 BRIEF PSYCHOTIC DISORDER 07/29/2016 DERICK GONZALEZ MD Ot Z79.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 (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 07/29/2016 DERICK GONZALEZ MD Ot Z91.14 PATIENT'S OTHER NONCOMPLIANCE WITH MEDIC 10/14/2016 Ot 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 10/14/2016 Ot V72.63 PRE- PROCEDURAL LABORATORY EXAMINATION 10/14/2016 Ot V74.8 SCREEN- BACTERIAL DIS NEC 10/14/2016 MAICOL TORRES, MANJIT Fernandez Ot 242.90 THYROTOX NOS NO CRISIS 10/14/2016 JUSTIN CRUZ BARN HAND Ot 721.3 LUMBOSACRAL SPONDYLOSIS 10/14/2016 JUSTIN CRUZ BARN HAND Ot 722.0 CERVICAL DISC DISPLACMNT 10/14/2016 DEVORAH BANEGAS HUMANE OFFICER Ot 625.9 FEM GENITAL SYMPTOMS NOS 10/14/2016 [...] Ot L30.9 DERMATITIS, UNSPECIFIED 08/21/2017 CONCETTA LOVING BARN HAND Ot R21 RASH AND OTHER NONSPECIFIC SKIN ERUPTION 08/21/2017 CONCETTA LOVING APRN Ot Z79.52 SCALE INSTALLER (CURRENT) USE OF SYSTEMIC STER 08/21/2017 CONCETTA LOVING BARN HAND Ot Z87.19 PERSONAL HISTORY OF OTHER DISEASES [...] ERUPTION 08/23/2017 CONCETTA LOVING APRN Ot Z79.52 SHELTER (CURRENT) USE OF SYSTEMIC STER 08/23/2017 CONCETTA LOVING BARN HAND Ot Z87.19 PERSONAL HISTORY OF OTHER DISEASES OF 10/12/2017 MAICOL TORRES, MANJIT Fernandez Ot 242.90 THYROTOX NOS NO CRISIS 10/12/2017 JUSTIN CRUZ BARN HAND Ot 721.3 LUMBOSACRAL SPONDYLOSIS 10/12/2017 JUSTIN CRUZ BARN HAND Ot 722.0 CERVICAL DISC DISPLACMNT 10/12/2017 DEVORAH BANEGAS Ot 625.9 FEM GENITAL SYMPTOMS NOS 10/12/2017 VENKAT LOOMIS DO Ot N80.9 ENDOMETRIOSIS, UNSPECIFIED 10/12/2017 VENKAT LOOMIS DO Ot Z01.812 ENCOUNTER FOR PREPROCEDURAL LABORATORY E 10/12/2017 VENKAT LOOMIS DO Ot Z11.2 ENCOUNTER FOR SCREENING FOR OTHER BACTER 10/12/2017 ADELA VILLAFUERTE MD Ot R10.84 GENERALIZED ABDOMINAL PAIN 11/07/2017 CHRISTO TORRES, ADELA N Ot M25.561 PAIN IN RIGHT KNEE 11/07/2017 [...] IN RIGHT KNEE 12/04/2017 ADELA VILLAFUERTE MD N Ot M54.2 CERVICALGIA 12/05/2017 ADELA VILLAFUERTE MD N Ot M25.561 PAIN IN RIGHT KNEE 12/05/2017 ADELA VILLAFUERTE MD N Ot M54.2 CERVICALGIA 01/11/2018 CHIN RUSH DO [...] MAJOR DEPRESSIVE DISORDER, SINGLE EPISOD 01/11/2018 CHIN RUHS DO Ot F41.9 ANXIETY DISORDER, UNSPECIFIED 01/11/2018 CHIN RUSH DO Ot F43.10 POST-TRAUMATIC STRESS DISORDER, UNSPECIF 01/11/2018 GABRIEL RUSH DOI Ot F44.81 DISSOCIATIVE IDENTITY DISORDER 01/11/2018 CHIN RUSH DO Ot F51.5 NIGHTMARE DISORDER 01/11/2018 VICTOR MANUEL VILLAFUERTE CHIN Ot F60.3 BORDERLINE PERSONALITY DISORDER 01/11/2018 GABRIEL RUSH DOI Ot J45.909 UNSPECIFIED ASTHMA, UNCOMPLICATED 01/11/2018 GABRIEL RUSH DOI Ot K21.9 GASTRO-ESOPHAGEAL REFLUX DISEASE WITHOUT 01/11/2018 VICTOR MANUEL VILLAFUERTE CHIN Ot N28.9 DISORDER OF KIDNEY AND URETER, UNSPECIFI 01/11/2018 VICTOR MANUEL VILLAFUERTE CHIN Ot N30.00 ACUTE CYSTITIS WITHOUT HEMATURIA 01/11/2018 CHIN RUSH DO Ot Z68.39 BODY MASS INDEX (BMI) 39.0-39.9, ADULT 01/11/2018 CHIN RUSH DO Ot Z72.89 OTHER PROBLEMS RELATED TO LIFESTYLE 01/11/2018 CHIN RUSH DO Ot Z79.84 SCALE INSTALLER (CURRENT) USE OF ORAL HYPOGLYC 01/11/2018 VICTOR MANUEL VILLAFUERTE CHIN Ot Z90.710 ACQUIRED ABSENCE OF BOTH CERVIX AND UTER 02/02/2018 MAICOL TORRES, MANJIT Fernandez Ot 242.90 THYROTOX NOS NO CRISIS 02/02/2018 JUSTIN CRUZ BARN HAND Ot 721.3 LUMBOSACRAL SPONDYLOSIS 02/02/2018 JUSTIN CRUZ BARN HAND Ot 722.0 CERVICAL DISC DISPLACMNT 02/02/2018 DEVORAH BANEGAS Ot 625.9 FEM GENITAL SYMPTOMS NOS 02/02/2018 VENKAT LOOMIS DO Ot N80.9 ENDOMETRIOSIS, UNSPECIFIED 02/02/2018 VENKAT LOOMIS DO Ot Z01.812 ENCOUNTER FOR PREPROCEDURAL LABORATORY E 02/02/2018 VENKAT LOOMIS DO Ot Z11.2 ENCOUNTER FOR SCREENING FOR OTHER BACTER 02/02/2018 CHRISTO TORRES, ADELA Mcclellan Ot R10.84 GENERALIZED ABDOMINAL PAIN 02/02/2018 CHIN RUSH DO Ot B37.2 CANDIDIASIS OF SKIN AND NAIL 02/02/2018 CHIN RUSH DO Ot E11.65 TYPE 2 DIABETES MELLITUS WITH HYPERGLYCE 02/02/2018 VICTOR MANUEL VILLAFUERTE CHIN Ot E66.01 MORBID (SEVERE) OBESITY DUE TO EXCESS CA 02/02/2018 RUSH DO, CHIN Ot E78.00 PURE HYPERCHOLESTEROLEMIA, UNSPECIFIED 02/02/2018 RUSH DO, CHIN Ot E87.8 OTH DISORDERS OF ELECTROLYTE AND FLUID B 02/02/2018 VICTOR MANUEL DO, CHIN Ot F12.90 CANNABIS USE, UNSPECIFIED, UNCOMPLICATED 02/02/2018 VICTOR MANUEL DO, CHIN Ot F17.210 NICOTINE DEPENDENCE, CIGARETTES, UNCOMPL 02/02/2018 VICTOR MANUEL DO CHIN Ot F20.0 PARANOID SCHIZOPHRENIA 02/02/2018 VICTOR MANUEL DO, CHIN Ot F32.9 MAJOR DEPRESSIVE DISORDER, SINGLE EPISOD 02/02/2018 VICTOR MANUEL DO CHIN Ot F41.9 ANXIETY DISORDER, UNSPECIFIED 02/02/2018 VICTOR MANUEL VILLAFUERTE CHIN Ot F43.10 POST-TRAUMATIC STRESS DISORDER, UNSPECIF 02/02/2018 VICTOR MANUEL VILLAFUERTE CHIN Ot F44.81 DISSOCIATIVE IDENTITY DISORDER 02/02/2018 VICTOR MANUEL VILLAFUERTE CHIN Ot F51.5 NIGHTMARE DISORDER 02/02/2018 VICTOR MANUEL VILLAFUERTE CHIN Ot F60.3 BORDERLINE PERSONALITY DISORDER 02/02/2018 VICTOR MANUEL VILLAFUERTE CHIN Ot J45.909 UNSPECIFIED ASTHMA, UNCOMPLICATED 02/02/2018 VICTOR MANUEL VILLAFUERTE, CHIN Ot K21.9 GASTRO-ESOPHAGEAL REFLUX DISEASE WITHOUT 02/02/2018 VICTOR MANUEL VILLAFUERTE CHIN Ot N28.9 DISORDER OF KIDNEY AND URETER, UNSPECIFI 02/02/2018 VICTOR MANUEL VILLAFUERTE CHIN Ot N30.00 ACUTE CYSTITIS WITHOUT HEMATURIA 02/02/2018 VICTOR MANUEL VILLAFUERTE CHIN Ot Z68.39 BODY MASS INDEX (BMI) 39.0-39.9, ADULT 02/02/2018 VICTOR MANUEL VILLAFUERTE CHIN Ot Z72.89 OTHER PROBLEMS RELATED TO LIFESTYLE 02/02/2018 VICTOR MANUEL VILLAFUERTE CHIN Ot Z79.84 SCALE INSTALLER (CURRENT) USE OF ORAL HYPOGLYC 02/02/2018 VICTOR MANUEL VILLAFUERTE CHIN Ot Z90.710 ACQUIRED ABSENCE OF BOTH CERVIX AND UTER 05/01/2018 MAICOL TORRES, MANJIT Fernandez Ot 242.90 THYROTOX NOS NO CRISIS 05/01/2018 JUSTIN CRUZ BARN HAND Ot 721.3 LUMBOSACRAL SPONDYLOSIS 05/01/2018 JUSTIN CRUZ BARN HAND Ot 722.0 CERVICAL DISC DISPLACMNT 05/01/2018 DEVORAH BANEGAS A HUMANE OFFICER Ot 625.9 FEM GENITAL SYMPTOMS NOS 05/01/2018 LOOMIS DO, VENKAT C Ot N80.9 ENDOMETRIOSIS, UNSPECIFIED 05/01/2018 LOOMIS DO, VENKAT C Ot Z01.812 ENCOUNTER FOR PREPROCEDURAL LABORATORY E 05/01/2018 LOOMIS , VENKAT C Ot Z11.2 ENCOUNTER FOR SCREENING FOR OTHER BACTER 05/01/2018 CHRISTO TORRES, ADELA Mcclellan Ot R10.84 GENERALIZED ABDOMINAL PAIN 05/28/2018 MAICOL TORRES, MANJIT Fernandez Ot 242.90 THYROTOX NOS NO CRISIS 05/28/2018 JUSTIN CRUZ BARN HAND Ot 721.3 LUMBOSACRAL SPONDYLOSIS 05/28/2018 JUTSIN CRUZ BARN HAND Ot 722.0 CERVICAL DISC DISPLACMNT 05/28/2018 DEVORAH BANEGAS A HUMANE OFFICER Ot 625.9 FEM GENITAL SYMPTOMS NOS 05/28/2018 HANNA LOOMIS DOA C Ot N80.9 ENDOMETRIOSIS, UNSPECIFIED 05/28/2018 VLADISLAV VILLAFUERTE VENKAT C Ot Z01.812 ENCOUNTER FOR PREPROCEDURAL LABORATORY E 05/28/2018 VLADISLAV VILLAFUERTE, VENKAT C Ot Z11.2 ENCOUNTER FOR SCREENING FOR OTHER BACTER 05/28/2018 CHRISTO TORRES, ADELA Mcclellan Ot R10.84 GENERALIZED ABDOMINAL PAIN 05/30/2018 CHAS OLIVIER BARN HAND Ot M48.02 SPINAL STENOSIS, CERVICAL REGION 05/30/2018 CHAS OLIVIER BARN HAND Ot M50.20 OTHER CERVICAL DISC DISPLACEMENT, UNSP C 06/13/2018 CHAS OLIVIER BARN HAND Ot M48.02 SPINAL STENOSIS, CERVICAL REGION 06/13/2018 CHAS OLIVIER BARN HAND Ot M50.20 OTHER CERVICAL DISC DISPLACEMENT, UNSP C Procedures Code [place] [address] PSYTX PT&/FAMILY 45 MINUTES 09/18/2013 J2426 Invega Sustenna 234 mg/1.5 mL syringe 09/19/2013 83070 PSYCH DIAGNOSTIC EVALUATION 09/30/2013 79079 THERAPUTIC INJ SQ/IM 10/08/2013 33490 THERAPUTIC INJ SQ/IM 11/06/2013 48219 PSYTX PT&/FAMILY 45 MINUTES 11/14/2013 74456 THERAPUTIC INJ SQ/IM 12/06/2013 17873 PSYTX PT&/FAMILY 45 MINUTES 12/18/2013 49168 THERAPUTIC INJ SQ/IM 01/06/2014 69273 THERAPUTIC INJ SQ/IM 01/09/2014 29446 THERAPUTIC INJ SQ/IM 02/06/2014 96343 THERAPUTIC INJ SQ/IM 2014 28306 THERAPUTIC INJ SQ/IM 04/15/2014 40747 THERAPUTIC INJ SQ/IM 05/21/2014 13944 THERAPUTIC INJ SQ/IM 06/27/2014 88247 XRAY CERVICAL SPINE, 2 OR 3 VIEWS 09/11/2014 42027 XRAY LUMBAR SPINE 2 OR 3 VIEWS 09/11/2014 34413 UA W/ CULTURE IF INDICATED 09/11/2014 62669 THERAPUTIC INJ SQ/IM 10/06/2014 Results Test Result [...] 5-8.5 Urine-Protein Negative Negative Urine-RBC Negative Urine-Specific [place] 1.025 1.000-1.030 Urine-WBC Nothing Seen on Microscopic [...] Blood erythrocyte morphology finding identification NORMAL NRG [id number] - 01/10/18 22:30 [id number] 58.8 ug/mL 50.0-100.0 Serum or plasma thyrotropin [...] measurement by glucometer (mass/volume) 273 mg/dL 70-110 LIPID PANEL - 02/22/18 10:18 CHOLESTEROL, TOTAL 110 mg/dL <200 HDL CHOLESTEROL 28 mg/dL >50 TRIGLYCERIDES 244 mg/dL <150 LDL-CHOLESTEROL 52 mg/dL (calc) NRG CHOL/HDLC RATIO 3.9 (calc) <5.0 NON HDL CHOLESTEROL 82 mg/dL (calc) <130 Encounters ACCT No. Visit Date/Time Discharge Status Pt. Type Provider Facility Loc./Unit Complaint [id number] 10/14/2014 09:01:00 10/14/2014 23:59:59 CLS Outpatient SIMONE BARN HAND, TIFFANY [id number] 10/06/2014 15:00:00 10/06/2014 23:59:59 CLS Outpatient ANTHONY BARN HAND, JUSTIN R [id number] 09/11/2014 11:46:00 09/11/2014 23:59:59 CLS Outpatient ANTHONY BARN HAND JUSTIN R [id number] 09/11/2014 11:46:00 09/11/2014 23:59:59 CLS Outpatient ANTHONY BARN HAND, JUSTIN R [id number] 07/11/2014 10:31:00 07/11/2014 23:59:59 CLS Outpatient SIMONE BARN HAND, TIFFANY [id number] 07/11/2014 10:31:00 07/11/2014 23:59:59 CLS Outpatient SIMONE BARN HAND, TIFFANY [id number] 06/27/2014 15:39:00 06/27/2014 23:59:59 CLS Outpatient SIMONE BARN HAND, TIFFANY [id number] 05/23/2014 10:15:00 05/23/2014 23:59:59 CLS Outpatient SIMONE BARN HAND, ITFFANY [id number] 05/21/2014 12:43:00 05/21/2014 23:59:59 CLS Outpatient SIMONE BARN HAND, TIFFANY [id number] 04/15/2014 10:13:00 04/15/2014 23:59:59 CLS Outpatient SIMONE BARN HAND, TIFFANY [id number] 2014 11:45:00 2014 23:59:59 CLS Outpatient SIMONE BARN HAND, TIFFANY [id number] 2014 11:45:00 2014 23:59:59 CLS Outpatient SIMONE BARN HAND, TIFFANY [id number] 02/06/2014 10:11:00 02/06/2014 23:59:59 CLS Outpatient SIMONE BARN HAND, TIFFANY [id number] 01/06/2014 12:44:00 01/06/2014 23:59:59 CLS Outpatient SIMONE BARN HAND, TIFFANY [id number] 12/17/2013 13:46:00 12/17/2013 23:59:59 CLS Outpatient RADHA HAY, KAMILLA Galarza [id number] 12/06/2013 13:29:00 12/06/2013 23:59:59 CLS Outpatient ARTURO MASON DO [id number] 11/22/2013 13:41:00 11/22/2013 23:59:59 CLS Outpatient TIFFANY NICHOLS APRN [id number] 11/13/2013 14:50:00 11/13/2013 23:59:59 CLS Outpatient KAMILLA GARCIA PHD [id number] 11/06/2013 14:50:00 11/06/2013 23:59:59 CLS Outpatient LANDRY MA MD [id number] 10/08/2013 12:25:00 10/08/2013 23:59:59 CLS Outpatient LANDRY MA MD [id number] 09/19/2013 15:06:00 09/19/2013 23:59:59 CLS Outpatient TIFFANY NICHOLS APRN [id number] 09/19/2013 00:00:00 09/19/2013 23:59:59 CLS Outpatient TIFFANY NICHOLS APRN [id number] 09/17/2013 15:53:00 09/17/2013 23:59:59 CLS Outpatient KAMILLA GARCIA PHD [id number] 09/11/2013 08:49:00 09/11/2013 23:59:59 CLS Outpatient ADELA VILLAFUERTE MD [id number] 07/16/2013 09:35:00 07/16/2013 23:59:59 CLS Outpatient CHRISTIANO PERALES APRN [id number] 02/07/2012 14:56:00 02/07/2012 23:59:59 CLS Outpatient ROSALVA LOVE DDS [id number] 02/07/2012 14:56:00 02/07/2012 23:59:59 CLS Outpatient [id number] 05/28/2018 16:11:00 05/28/2018 23:59:59 CLS Outpatient CHAS OLIVIER APRN [facility] RAD CERVICALGIA [id number] 01/10/2018 21:46:00 01/11/2018 13:45:00 DIS Inpatient CHIN RUSH DO [facility] 4TH NEW DX OF DIABETES [id number] 11/27/2017 13:15:00 12/05/2017 15:34:00 DIS Outpatient ADELA VILLAFUERTE MD [facility] REHAB R KNEE PAIN, NECK PAIN [id number] 08/21/2017 17:26:00 08/21/2017 18:00:00 DIS Emergency CONCETTA LOVING APRN [facility] ER LEFT HAND WOUND [id number] 02/24/2017 09:20:00 02/24/2017 23:59:59 CLS Preadmit ADELA VILLAFUERTE MD [facility] RAD M50.20 [id number] 10/18/2016 07:59:00 10/18/2016 23:59:59 CLS Outpatient AEDLA VILLAFUERTE MD [facility] RAD R10.84 GENERALIZED ABDOMINAL PAIN [id number] 07/23/2016 21:27:00 07/24/2016 04:10:00 DIS Emergency LISA TORRES, DERICK Roach [facility] ER MIGRAINE, ALTERED MENTAL STATUS [id number] 04/28/2015 08:25:00 04/29/2015 09:35:00 DIS Outpatient VENKAT LOOMIS DO [facility] SDC CCP,ENDOMETRIOSIS [id number] 04/23/2015 08:00:00 04/23/2015 23:59:59 CLS Outpatient VENKAT LOOMIS DO [facility] PREOP CRONIC PELVIC PAIN, ENDOMETRIOSIS [id number] 03/10/2015 12:33:00 03/10/2015 23:59:59 CLS Outpatient DEVORAH BANEGAS HUMANE OFFICER [facility] RAD PELVIC PAIN [id number] 11/13/2014 10:55:00 11/13/2014 12:43:00 DIS Emergency ADELAIDE TORRES, VIOLETA Cavazos [facility] ER NECK/BACK PAIN [id number] 10/23/2014 12:17:00 10/23/2014 23:59:59 CLS Outpatient JUSTIN CRUZ APRN [facility] RAD NECK PAIN, LUMBAGO W/ SCIATICA [id number] 01/01/2013 12:11:00 01/01/2013 23:59:59 CLS Outpatient MANJIT MILIAN MD [facility] RAD HYPERTHROIDISM [id number] 09/16/2012 11:15:00 Document Registration [id number] 02/14/2012 05:52:00 Document Registration [id number] 02/08/2012 13:33:00 Document Registration [id number] 06/03/2016 10:05:00 Document Registration [id number] 03/10/2015 12:33:28 ACT Document Registration [id number] 12/28/2016 14:45:00 Document Registration [id number] 08/26/2016 09:11:00 Document Registration [id number] 10/13/2016 08:46:00 Document Registration [id number] 05/30/2016 13:05:00 Document Registration [id number] 07/06/2018 14:40:00 07/06/2018 23:59:59 CLS Outpatient CHAS OLIVIER [facility] [id number] 02/22/2018 10:40:00 Document Registration [id number] 12/28/2016 14:45:00 12/28/2016 16:00:00 DIS Outpatient Trisha Mcgee [facility] ER [id number] 06/15/2016 07:30:00 06/15/2016 08:17:00 DIS Outpatient Mana Alvares [facility] ER [id number] 05/01/2016 23:35:00 Document Registration
[2018-08-13] MEDS ORDERED: NAPR-1071 PO (18:48)
[2018-08-13] MEDS ORDERED: PRD20T PO (18:48)
[2018-08-13 18:53] VITALS: BP 144/98
== END 2018-08-13 18:53 | disposition home or self-care (01) ==
LOC: EDUNIT# 18:07 → ER 18:08
DX: S16.1XXA Strain of muscle, fascia and tendon at neck level, initial encounter (principal); M54.12 Radiculopathy, cervical region; J45.909 Unspecified asthma, uncomplicated; K21.9 Gastro-esophageal reflux disease without esophagitis; E11.9 Type 2 diabetes mellitus without complications; F41.9 Anxiety disorder, unspecified; F43.10 Post-traumatic stress disorder, unspecified; F20.9 Schizophrenia, unspecified; F32.9 Major depressive disorder, single episode, unspecified; E78.00 Pure hypercholesterolemia, unspecified; F17.210 Nicotine dependence, cigarettes, uncomplicated; F12.10 Cannabis abuse, uncomplicated; Z87.448 Personal history of other diseases of urinary system; Z87.440 Personal history of urinary (tract) infections; Z79.51 Long term (current) use of inhaled steroids; Z79.4 Long term (current) use of insulin; Z90.710 Acquired absence of both cervix and uterus; Z98.890 Other specified postprocedural states; X58.XXXA Exposure to other specified factors, initial encounter
CPT/HCPCS: 96372; 99284

== ENCOUNTER → 2020-05-28 | Outpatient (CLI) | payer MEDICAID ==
[~2020-05-28] MED LIST changes: +NAPR-1071 PO; +PRD20T PO
--- NOTE | 2020-05-28 17:16 | Diagnostic Imaging Report ---
INDICATION: Pelvic pain. EXAMINATION: Pelvic sonography performed in the routine fashion and compared to prior study of 03/10/2015. FINDINGS: The uterus is surgically absent. The right ovary measured 2.3 x 3.3 x 3.1 cm and contains color flow. The right ovary has a normal appearance. There is a small 1 cm follicle in the right ovary. The left ovary measured 4.0 x 2.0 x 1.9 cm. Left ovary appeared normal and containing color flow. There is no free fluid. IMPRESSION: Status post hysterectomy. There is a normal appearance of the ovaries on both sides. There is a small physiologic follicle in the right ovary. There is no free fluid. Dictated by: Dictated on workstation # [id number]
== END ==
LOC: RAD 15:15
PROVIDERS: ATTEND Obstetrics & Gynecology
DX: N83.01 Follicular cyst of right ovary (principal); Z90.710 Acquired absence of both cervix and uterus
CPT/HCPCS: 76856

== ENCOUNTER 2020-06-07 21:36 | Emergency (ER) | payer MEDICAID ==
[~2020-06-07] VITALS: Ht 158 cm; Wt 90.0 kg
[2020-06-07] MEDS ORDERED: NS IV 1000 ML 1,000 ML ONE (22:07)
[2020-06-07] MEDS ORDERED: NS IV 1000 ML 1,000 ML IV SCH (22:15)
[2020-06-07 22:21] LABS: BASOPHILS # (AUTO) 0.1 10^3/uL (0.0-0.1); BASOPHILS % (AUTO) 0 % (0-10); EOSINOPHILS # (AUTO) 0.2 10^3/uL (0.0-0.3); EOSINOPHILS % (AUTO) 2 % (0-10); HEMATOCRIT 40 % (35-52); HEMOGLOBIN 13.8 g/dL (11.5-16.0); LYMPHOCYTES # (AUTO) 3.8 10^3/uL (1.0-4.0); LYMPHOCYTES % (AUTO) 30 % (12-44); MEAN CORPUSCULAR HEMOGLOBIN 31 pg (25-34); MEAN CORPUSCULAR HGB CONC 34 g/dL (32-36); MEAN CORPUSCULAR VOLUME 90 fL (80-99); MEAN PLATELET VOLUME 9.2 fL (9.0-12.2); MONOCYTES # (AUTO) 1.1 10^3/uL (0.0-1.0); MONOCYTES % (AUTO) 8 % (0-12); NEUTROPHILS # (AUTO) 7.7 10^3/uL (1.8-7.8); NEUTROPHILS % (AUTO) 60 % (42-75); PLATELET COUNT 345 10^3/uL (130-400)
--- NOTE | 2020-06-07 22:23 | ED Cough/URI ---
General Chief Complaint: Respiratory Problems Stated Complaint: COUGH;SOB;HIGH HEART RATE;COVID-19 POSITIVE Nursing Triage Note: DIAG. COVID POSITIVE ON 05/19. TWO DAYS AGO COUGH, SHORTNESS OF BREATH, AND TACHYCARDIA STARTED. Sepsis Screen: No Definite Risk Source: patient Exam Limitations: no limitations History of Present Illness Date Seen by Provider: Jun 07, 2020 Time Seen by Provider: 22:14 Initial Comments Patient is a 35-year-old female who presents to the emergency department today with a chief complaint of shortness of breath, cough, right-sided earache. Patient states that she had a positive COVID-19 test on May 19. She states she has been asymptomatic until the last 3 days. She states she woke up this morning with body aches and leg cramps. Patient states that she has had a normal appetite. Mild diarrhea. No burning with urination or urinary discomfort. No known fevers or chills. No runny nose or sore throat. She is not really been taking anything for cough. Patient states that her mother encouraged her to come in this evening secondary to her cough. Patient states that she can "hear rattling in my chest" when she breathes. All other review of systems reviewed and negative except as stated. Timing/Duration: week Severity/Quality: moderate Associated Symptoms: cough, earache (Right-sided), muscle aches Allergies and Home Medications Allergies Coded Allergies: No Known Drug Allergies (Unverified , 08/15/12) Home Medications Acyclovir 400 Mg Tablet, 400 MG PO TID PRN for COLD SORE OUTBREAK, (Reported) Albuterol Sulfate 6.7 Gm Hfa.aer.ad, 2 PUFF IH Q4H PRN for SHORTNESS OF BREATH, (Reported) Albuterol Sulfate 1 Puff Puff, 2 PUFF IH Q4H 1 PUFF = 90 MCG Prescribed by: CASSIA ORANTES on 06/07/20 2348 Atorvastatin Calcium 40 Mg Tablet, 40 MG PO HS, (Reported) Cephalexin 250 Mg Capsule, 500 MG PO QID Prescribed by: CHIN RUSH on 01/11/18 1015 Divalproex Sodium 500 Mg Tab.er.24h, 1,000 MG PO HS, (Reported) Divalproex Sodium 250 Mg Tab.er.24h, 250 MG PO DAILY, (Reported) Docusate Sodium 100 Mg Capsule, 100 MG PO BID PRN for CONSTIPATION Prescribed by: VENKAT LOOMIS on 04/29/15833 Haloperidol 10 Mg Tablet, 10 MG PO HS, (Reported) Haloperidol 5 Mg Tablet, 5 MG PO DAILY, (Reported) Hydroxyzine HCl 25 Mg Tablet, 25-50 MG PO DAILY, (Reported) Ibuprofen 600 Mg Tablet, 600 MG PO TID PRN for PAIN, (Reported) Ibuprofen 600 Mg Tablet, 600 MG PO Q6H Prescribed by: VENKAT LOOMIS on 04/29/15833 Insulin Aspart 300 Units/3 Ml Solution, 10 UNITS SQ AC Prescribed by: CHIN RUSH on 01/11/181014 Insulin Detemir 100 Unit/1 Ml Insuln.pen, 40 UNIT SQ HS Prescribed by: CHIN RUSH on 01/11/181014 Levothyroxine Sodium 75 Mcg Tablet, 75 MCG PO HS, (Reported) Metformin HCl 500 Mg Tab.er.24, 500 MG PO BID, (Reported) Naproxen 500 Mg Tablet, 500 MG PO BID Prescribed by: TRICE GALO on 08/13/181847 Paliperidone 9 Mg Tab.er.24, 9 MG PO DAILY, (Reported) Prednisone 20 Mg Tab, 40 MG PO DAILY Prescribed by: TRICE GALO on 08/13/181847 Ranitidine HCl 150 Mg Capsule, 150 MG PO BID, (Reported) Terconazole 45 Gm Cream.appl, 1 UNIT TOP BID Prescribed by: CHIN RUSH on 01/11/181014 Trazodone HCl 150 Mg Tablet, 150 MG PO HS, (Reported) Triamcinolone Acet 15 Gm Cr, 1 UNIT TOP BID Prescribed by: CHIN RUSH on 01/11/18 101 Patient Home Medication List Home Medication List Reviewed: Yes Review of Systems Review of Systems Constitutional: see HPI EENTM: ear pain (Right-sided) Respiratory: cough, phlegm (Occasional phlegm with cough), short of breath Cardiovascular: no symptoms reported Gastrointestinal: no symptoms reported Genitourinary: no symptoms reported : No Musculoskeletal: muscle cramps Skin: no symptoms reported Psychiatric/Neurological: No Symptoms Reported; Denies Anxiety, Denies Depressed All Other Systems Reviewed Negative Unless Noted: Yes Past Ntxpimk-Puprvf-Zaqlyu Hx Patient Social History Drug of Choice: THC Type Used: Cigarettes Recent Foreign Travel: No Contact w/Someone Who Travel: No Recent Infectious Disease Expo: No Recent Hopitalizations: No Immunizations Up To Date Tetanus Booster (TDap): Unknown PED Vaccines UTD: Yes Seasonal Allergies Seasonal Allergies: No Past Medical History Surgeries: Yes Bladder Surgery, Hysterectomy Respiratory: Yes Asthma Cardiac: Yes High Cholesterol Neurological: No Reproductive Disorders: Yes (CPP,SUDHEER III) Female Reproductive Disorders: Endometriosis 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 OCCASIONAL DIARRHEA) Gastroesophageal Reflux Musculoskeletal: Yes Arthritis, Chronic Back Pain Endocrine: Yes (NEW DX OF DIABETES 01/09/18) Diabetes, Non-Insulin dep HEENT: No Cancer: No Psychosocial: Yes Sleep Difficulties, Anxiety, PTSD, Personality Disorder, Schizophrenia, Depression Integumentary: No Blood Disorders: No Adverse Reaction/Blood Tranf: No Family Medical History Alcoholism 19 FATHER Thyroid disease 19 MOTHER No Pertinent Family Hx Physical Exam Vital Signs - First Documented 06/07/20 21:56 Temp 36.3 Pulse 114 Resp 20 B/P (MAP) 165/106 (125) Pulse Ox 94 O2 Delivery Room Air Capillary Refill : Less Than 3 Seconds Height: 5'2.00" Weight: 260lbs. 5.0oz. 117.419590xy; 36.00 BMI Method:Stated General Appearance: WD/WN, no apparent distress HEENT: PERRL/EOMI, TM abnormal (R) (occluded by cerumen) Respiratory: crackles (Scattered crackles noted on inspiration and expiration in the right chest posteriorly) Cardiovascular: regular rate, rhythm, no edema, no gallop Gastrointestinal: normal bowel sounds, non tender, soft Extremities: non-tender, normal inspection, no pedal edema, no calf tenderness Neurologic/Psychiatric: no motor/sensory deficits, alert, normal mood/affect, oriented x 3 Skin: normal color, warm/dry Progress/Results/Core Measures Suspected Sepsis Recent Fever Within 48 Hours: No Infection Criteria Present: None New/Unexplained Altered Menta: No Sepsis Screen: No Definite Risk SIRS Temperature: Pulse: 114 Respiratory Rate: 20 Laboratory Tests 06/07/20 22:07: White Blood Count 13.0H Blood Pressure 165 /106 Mean: 125 Laboratory Tests 06/07/20 22:07: Creatinine 0.93, Platelet Count 345 Results/Orders Lab Results Laboratory Tests Test 06/07/20 22:07 Range/Units White Blood Count 13.0 H 4.3-11.0 10^3/uL Red Blood Count 4.46 3.80-5.11 10^6/uL Hemoglobin 13.8 11.5-16.0 g/dL Hematocrit 40 35-52 % Mean Corpuscular Volume 90 80-99 fL Mean Corpuscular Hemoglobin 31 25-34 pg Mean Corpuscular Hemoglobin Concent 34 32-36 g/dL Red Cell Distribution Width 11.9 10.0-14.5 % Platelet Count 345 130-400 10^3/uL Mean Platelet Volume 9.2 9.0-12.2 fL Immature Granulocyte % (Auto) 1 % Neutrophils (%) (Auto) 60 42-75 % Lymphocytes (%) (Auto) 30 12-44 % Monocytes (%) (Auto) 8 0-12 % Eosinophils (%) (Auto) 2 0-10 % Basophils (%) (Auto) 0 0-10 % Neutrophils # (Auto) 7.7 1.8-7.8 10^3/uL Lymphocytes # (Auto) 3.8 1.0-4.0 10^3/uL Monocytes # (Auto) 1.1 H 0.0-1.0 10^3/uL Eosinophils # (Auto) 0.2 0.0-0.3 10^3/uL Basophils # (Auto) 0.1 0.0-0.1 10^3/uL Immature Granulocyte # (Auto) 0.1 0.0-0.1 10^3/uL Sodium Level 139 135-145 MMOL/L Potassium Level 4.5 3.6-5.0 MMOL/L Chloride Level 104 98-107 MMOL/L Carbon Dioxide Level 21 21-32 MMOL/L Anion Gap 14 5-14 MMOL/L Blood Urea Nitrogen 7 7-18 MG/DL Creatinine 0.93 0.60-1.30 MG/DL Estimat Glomerular Filtration Rate > 60 BUN/Creatinine Ratio 8 Glucose Level 195 H 70-105 MG/DL Calcium Level 9.3 8.5-10.1 MG/DL Procalcitonin 0.03 <0.10 NG/ML My Orders Orders - CASSIA ORANTES MD Ns Iv 1000 Ml (Sodium Chloride 0.9%) (06/07/20 22:07) Ns Iv 1000 Ml (Sodium Chloride 0.9%) (06/07/20 22:15) Ed Iv/Invasive Line Start (06/07/20 22:12) Cbc With Automated Diff (06/07/20 22:12) Basic Metabolic Panel (06/07/20 22:12) Procalcitonin (Pct) (06/07/20 22:12) Chest 1 View, Ap/Pa Only (06/07/20 22:58) Vital Signs/I&O 06/07/20 06/07/20 21:56 23:51 Temp 36.3 37.0 Pulse 114 105 Resp 20 20 B/P (MAP) 165/106 (125) 158/103 Pulse Ox 94 96 O2 Delivery Room Air Room Air Capillary Refill : Less Than 3 Seconds Blood Pressure Mean: 125 Progress Note : Time: 23:39 Progress Note 35-year-old female presents to the emergency room with a chief complaint of mild shortness of breath with cough and concern for her Covid positive status as of May 19. Patient is evaluated with physical exam, single view chest x-ray, CBC, chemistry and procalcitonin. Patient's labs are reviewed and are within normal limits except for a mild leukocytosis. Patient's procalcitonin is 0.03. Patient's vital signs have been stable except she remains slightly tachycardic. I attribute this mostly to her psychotropic medications. Patient clinically does not appear dehydrated. Blood pressure has been good. Oxygen saturations on room air are 95 to 97%. Patient demonstrates a dry cough. We will treat the patient with an albuterol inhaler for home use, prescription provided. I recommended she use ufbl-yvf-icerope Robitussin-DM and even though she is diabetic I suggested that she use 1 teaspoon of honey and hot tea 2-3 times a day using care and cautioned to monitor her blood sugars closely. Patient verbalizes understanding of the plan of care and is comfortable. Patient questions are sought and answered. She stable for discharge. Diagnostic Imaging Diagonstic Imaging: Xray Plain Films/CT/US/NM/MRI: chest Comments Chest x-ray demonstrates a normal bony thorax, no infiltrates or effusions, normal mediastinal structures Departure Impression Primary Impression: Viral syndrome Additional Impression: Cough Disposition: HOME, SELF-CARE Condition: Stable Departure-Patient Inst. Decision time for Depature: 23:42 Referrals: [facility] [place] Instructions: Cough, Adult (DC), Viral Upper Respiratory Infection, Adult (DC) Add. Discharge Instructions: Drink plenty of fluids to stay well-hydrated. You can use extv-ezl-oiyunfn Robitussin-DM for cough as directed on the bottle. Also, keeping a close eye on your sugars with your diabetes, you can use 1 teaspoon of honey and hot tea up to 3 times a day for cough. If you do this please keep a close eye on your blood sugars. Please call your primary care doctor's office tomorrow for a follow-up appointment this week. Return to the emergency room for any worsening shortness of breath, chest pain, high fevers or any other emergent, concerning symptoms. Scripts Albuterol Sulfate (PROAIR HFA) 1 Puff Puff 2 PUFF IH Q4H for shortness of breath, #1 PUFF 1 PUFF = 90 MCG Prov: CASSIA ORANTES MD 06/07/20 CASSIA ORANTES MD Jun 07, 2020 22:22
[2020-06-07 22:31] LABS: BUN/CREATININE RATIO 8; CALCIUM 9.3 MG/DL (8.5-10.1); CARBON DIOXIDE 21 MMOL/L (21-32); CHLORIDE 104 MMOL/L (98-107); CREATININE SERUM 0.93 MG/DL (0.60-1.30); GFR ESTIMATED > 60; GLUCOSE 195 MG/DL (70-105); POTASSIUM 4.5 MMOL/L (3.6-5.0); SODIUM 139 MMOL/L (135-145)
[2020-06-07] MEDS ORDERED: RT-ALBUINH IH (23:48)
[2020-06-07 23:51] VITALS: BP 158/103
--- NOTE | 2020-06-08 07:12 | Diagnostic Imaging Report ---
EXAM: CHEST 1 VIEW, AP/PA ONLY INDICATION: Shortness of air. COMPARISON: None. FINDINGS: Normal heart size and central pulmonary vascularity. No focal pulmonary opacities. No pleural effusion or pneumothorax. No acute osseous findings. IMPRESSION: No acute cardiopulmonary findings. Dictated by: Dictated on workstation # [id number]
== END 2020-06-07 23:54 | disposition home or self-care (01) ==
LOC: EDUNIT# 21:36 → ER 21:40
DX: B34.9 Viral infection, unspecified (principal); R05 Cough; E78.00 Pure hypercholesterolemia, unspecified; J45.909 Unspecified asthma, uncomplicated; E11.9 Type 2 diabetes mellitus without complications; K21.9 Gastro-esophageal reflux disease without esophagitis; F41.9 Anxiety disorder, unspecified; F32.9 Major depressive disorder, single episode, unspecified; F20.9 Schizophrenia, unspecified; Z79.52 Long term (current) use of systemic steroids; Z79.84 Long term (current) use of oral hypoglycemic drugs
CPT/HCPCS: 36415; 71045; 80048; 84145; 85025

== ENCOUNTER 2021-03-30 19:13 | Emergency (ER) | payer MEDICAID ==
[~2021-03-30] VITALS: Ht 160 cm; Wt 84.9 kg
[~2021-03-30 19:13] MED LIST changes: -ACYC400T PO; +ACYC400T21 PO; +ESCI20TA39 PO; -ESCI20TA45 PO; +TERC45CR2; +TERC45CR2 TOP; -TERC45CR4; -TERC45CR4 TOP
[2021-03-30 19:17] VITALS: BP 154/94
[2021-03-30] MEDS ORDERED: DULA3PEN (19:26)
[2021-03-30] MEDS ORDERED: HYDR50TA76 (19:26)
[2021-03-30] MEDS ORDERED: ROSU40TA23 (19:26)
--- NOTE | 2021-03-30 19:49 | ED Back Pain ---
General Chief Complaint: Back Problems Stated Complaint: BACK PAIN Nursing Triage Note: PAIN FROM NECK TO LOWER BACK RADIATING DOWN BOTH LEGS X2 DAYS. WORSE WITH COUGHING, STATES STARTED AFTER LIFTING. (BASIL CASAREZ) History of Present Illness Date Seen by Provider: Mar 30, 2021 Time Seen by Provider: 19:25 Initial Comments 36-year-old female presents for cervical, thoracic and lumbar back pain that is been present for at least 3 months. She has had an MRI of her cervical spine in the past that showed bulging disc. She denies an injury however she reports that when trying to lift things the pain gets worse in her neck and back. She denies any urinary retention, she has urinary incontinence regularly that has been present for approximately 10 years. She denies any bowel retention or incontinence. She has had no previous spine surgeries. She took ibuprofen 400 mg prior to coming. She is taken no other medicine for her back pain. She reports seeing Dr. Bill for this and she is planning to schedule an MRI. Location: C-Spine, Lumbar Spine Timing/Duration: Other (3 months) Associated Symptoms: muscle spasms; No weakness, No numbness in legs/feet, No tingling in legs/feet, No sensory/motor loss; lower back pain, loss of bladder control (chronic, 10 years); No loss of bowel control (BASIL CASAREZ) Allergies and Home Medications Allergies Coded Allergies: No Known Drug Allergies (Unverified , 08/15/12) Patient Home Medication List Home Medication List Reviewed: Yes (BASIL CASAREZ) Albuterol Sulfate (Proventil Hfa) 6.7 Gm Hfa.aer.ad, 2 PUFF IH Q4H PRN for SHORTNESS OF BREATH, (Reported) Entered as Reported by: WING LIGHT on 04/23/15 1151 Last Action: Last Taken Edited Albuterol Sulfate (Proair Hfa) 1 Puff Puff, 2 PUFF IH Q4H Prescribed by: CASSIA ORANTES on 06/07/20 8658 Last Action: Last Taken Edited Atorvastatin Calcium (Atorvastatin Calcium) 40 Mg Tablet, 40 MG PO HS, (Reported) Entered as Reported by: DEVORAH RAZA on 01/10/18 2325 Last Action: Last Taken Edited Cyclobenzaprine HCl (Cyclobenzaprine HCl) 10 Mg Tablet, 10 MG PO Q8H PRN for SPASMS Prescribed by: BASIL CASAREZ on 03/30/212005 Divalproex Sodium (Divalproex Sodium ER) 500 Mg Tab.er.24h, 1,000 MG PO HS, (Reported) Entered as Reported by: DEVORAH RAZA on 01/10/182324 Last Action: Last Taken Edited Divalproex Sodium (Divalproex Sodium ER) 250 Mg Tab.er.24h, 250 MG PO DAILY, (Reported) Entered as Reported by: DEVORAH RAZA on 01/10/182324 Last Action: Last Taken Edited Docusate Sodium (Docusate Sodium) 100 Mg Capsule, 100 MG PO BID PRN for CONSTIPATION Prescribed by: VENKAT LOOMIS on 04/29/1534 Last Action: Last Taken Edited Dulaglutide (Trulicity) 3 Mg/0.5 Ml Pen.injctr, (Reported) Entered as Reported by: PO WELSH on 03/30/211925 Last Action: New Order Haloperidol (Haloperidol) 10 Mg Tablet, 10 MG PO HS, (Reported) Entered as Reported by: DEVORAH RAZA on 01/10/182324 Last Action: Last Taken Edited Haloperidol (Haloperidol) 5 Mg Tablet, 5 MG PO DAILY, (Reported) Entered as Reported by: DEVORAH RAZA on 01/10/182324 Last Action: Last Taken Edited Hydroxyzine HCl (Hydroxyzine HCl) 25 Mg Tablet, 25-50 MG PO DAILY, (Reported) Entered as Reported by: DEVORAH RAZA on 01/10/182324 Last Action: Last Taken Edited Hydroxyzine HCl (Hydroxyzine HCl) 50 Mg Tablet, (Reported) Entered as Reported by: PO WELSH on 03/30/211925 Last Action: New Order Ibuprofen (Ibuprofen) 600 Mg Tablet, 600 MG PO TID PRN for PAIN, (Reported) Entered as Reported by: DEVORAH RAZA on 11/13/14 112 Last Action: Last Taken Edited Ibuprofen (Ibuprofen) 600 Mg Tablet, 600 MG PO Q6H Prescribed by: VENKAT LOOMIS on 04/29/15 0834 Last Action: Last Taken Edited Insulin Aspart (Novolog Flexpen) 300 Units/3 Ml Solution, 10 UNITS SQ AC Prescribed by: CHIN RUSH on 01/11/181014 Last Action: Last Taken Edited Insulin Detemir (Levemir Flextouch) 100 Unit/1 Ml Insuln.pen, 40 UNIT SQ HS Prescribed by: CHIN RUSH on 01/11/181014 Last Action: Last Taken Edited Levothyroxine Sodium (Levothyroxine Sodium) 75 Mcg Tablet, 75 MCG PO HS, (Reported) Entered as Reported by: WING LIGHT on 04/23/15 1151 Last Action: Last Taken Edited Metformin HCl (Metformin HCl ER) 500 Mg Tab.er.24, 500 MG PO BID, (Reported) Entered as Reported by: DEVORAH RAZA on 01/10/182324 Last Action: Last Taken Edited Naproxen (Naprosyn) 500 Mg Tablet, 500 MG PO BID Prescribed by: TRICE GALO on 08/13/181847 Last Action: Last Taken Edited [place], Insulin Disposable (Advocate Pen [place]) 1 Each Dis.needle, EACH ACHS, (DME) Prescribed by: CHIN RUSH on 01/11/181014 Last Action: Last Taken Edited Paliperidone (Paliperidone ER) 9 Mg Tab.er.24, 9 MG PO DAILY, (Reported) Entered as Reported by: DEVORAH RAZA on 01/10/182324 Last Action: Last Taken Edited Prednisone (Prednisone) 20 Mg Tab, 40 MG PO DAILY Prescribed by: TRICE GALO on 08/13/181847 Last Action: Last Taken Edited Prednisone (Prednisone) 20 Mg Tab, 40 MG PO DAILY Prescribed by: BASIL CASAREZ on 03/30/212005 Ranitidine HCl (Ranitidine HCl) 150 Mg Capsule, 150 MG PO BID, (Reported) Entered as Reported by: DEVORAH RAZA on 01/10/182324 Last Action: Last Taken Edited Rosuvastatin Calcium (Rosuvastatin Calcium) 40 Mg Tablet, (Reported) Entered as Reported by: PO WELSH on 03/30/211925 Last Action: New Order Terconazole (Terconazole) 45 Gm Cream.appl, 1 UNIT TOP BID Prescribed by: CHIN RUSH on 01/11/181014 Last Action: Last Taken Edited Trazodone HCl (Trazodone HCl) 150 Mg Tablet, 150 MG PO HS, (Reported) Entered as Reported by: DEVORAH RAZA on 01/10/18 9696 Last Action: Last Taken Edited Triamcinolone Acet (Triamcinolone Acetonide 0.025%) 15 Gm Cr, 1 UNIT TOP BID Prescribed by: CHIN RUSH on 01/11/18 1015 Last Action: Last Taken Edited Discontinued Medications Acyclovir (Acyclovir) 400 Mg Tablet, 400 MG PO TID PRN for COLD SORE OUTBREAK, (Reported) Discontinued Reason: No Longer Taking Entered as Reported by: WING ILGHT on 04/23/15 1151 Last Action: Discontinued Cephalexin (Cephalexin) 250 Mg Capsule, 500 MG PO QID Discontinued Reason: No Longer Taking Prescribed by: CHIN RUSH on 01/11/18 1015 Last Action: Discontinued Review of Systems Constitutional: no symptoms reported, see HPI Musculoskeletal: see HPI, back pain, neck pain (BASIL CASAREZ) All Other Systems Reviewed Negative Unless Noted: Yes (BASIL CASAREZ) Past Xdhbhjq-Kmechf-Mkqczk Hx Patient Social History Tobacco Use?: Yes Tobacco type used: Cigarettes Substance use?: No Alcohol Use?: No Pt feels they are or have been: No (BASIL CASRAEZ) Immunizations Up To Date Tetanus Booster (TDap): Unknown PED Vaccines UTD: Yes First/Initial COVID19 Vaccinat: 01/06 Second COVID19 Vaccination [place]: 02/06 COVID19 Vaccine Graduate Research Assistant: BRANDO (BASIL CASAREZ) Seasonal Allergies Seasonal Allergies: No (BASIL CASAREZ) Past Medical History Surgery/Hospitalization HX: THRYOID,HIGH CHOLESTEROL, BULDGING CERVICAL DISC,MULTIPLE PSYCH DX, TUBAL, HYSTORECTOMY, RECTAL Surgeries: Yes Bladder Surgery, Hysterectomy Respiratory: Yes Asthma Cardiac: Yes High Cholesterol Neurological: No Reproductive Disorders: Yes (CPP,SUDHEER III) Female Reproductive Disorders: 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 OCCASIONAL DIARRHEA) Gastroesophageal Reflux Musculoskeletal: Yes Arthritis, Chronic Back Pain Endocrine: Yes (NEW DX OF DIABETES 01/09/18) Diabetes, Non-Insulin dep HEENT: No Cancer: No Psychosocial: Yes Sleep Difficulties, Anxiety, PTSD, Personality Disorder, Schizophrenia, Depression Integumentary: No Blood Disorders: No Adverse Reaction/Blood Tranf: No (BASIL CASAREZ) Family Medical History Reviewed Nursing Family Hx (BASIL CASAREZ) Alcoholism 19 FATHER Thyroid disease 19 MOTHER No Pertinent Family Hx (BASIL CASAREZ) Physical Exam Vital Signs Vital Signs - First Documented 03/30/21 19:17 Temp 36.7 Pulse 100 Resp 16 B/P (MAP) 154/94 (114) Pulse Ox 97 O2 Delivery Room Air (TIAGO,JESSE K DO) Vital Signs Capillary Refill : Less Than 3 Seconds (BASIL CASAREZ) Height, Weight, BMI Height: 5'2.00" Weight: 260lbs. 5.0oz. 117.546741cm; 33.00 BMI Method:Stated General Appearance: No Apparent Distress, WD/WN Neck: Normal Inspection, Non Tender, Supple, Limited Range of Motion (secondary to pain); No Tender Lateral, No Tender Midline Cardiovascular: Regular Rate, Rhythm, No Edema, Normal Peripheral Pulses Respiratory: Chest Non Tender, Lungs Clear, Normal Breath Sounds Gastrointestinal: Normal Bowel Sounds, Non Tender, Soft Back: Normal Inspection, No Vertebral Tenderness, Decreased Range of Motion (secondary to pain), Muscle Spasm, Vertebral Tenderness, Other (Ambulates with a steady gait, able to rise on her toes and heels. Power 5/5 upper and lower ext. ) Extremity: Normal Capillary Refill, Normal Inspection, Normal Range of Motion, Non Tender, No Calf Tenderness Neurologic/Psychiatric: Alert, Oriented x3, No Motor/Sensory Deficits, Normal Mood/Affect (BASIL CASAREZ) Progress/Results/Core Measures Results/Orders Lab Results Laboratory Tests Test 03/30/21 19:45 Range/Units Urine Color YELLOW Urine Clarity CLEAR Urine pH 7.0 5-9 Urine Specific [place] 1.010 L 1.016-1.022 Urine Protein NEGATIVE NEGATIVE Urine Glucose (UA) NEGATIVE NEGATIVE Urine Ketones NEGATIVE NEGATIVE Urine Nitrite NEGATIVE NEGATIVE Urine Bilirubin NEGATIVE NEGATIVE Urine Urobilinogen 0.2 < = 1.0 MG/DL Urine Leukocyte Esterase NEGATIVE NEGATIVE Urine RBC (Auto) NEGATIVE NEGATIVE Urine RBC NONE /HPF Urine WBC 0-2 /HPF Urine Squamous Epithelial Cells 0-2 /HPF Urine Crystals NONE /LPF Urine Bacteria TRACE /HPF Urine Casts NONE /LPF Urine Mucus NEGATIVE /LPF Urine Culture Indicated NO (JESSE ORDOÑEZ DO) Vital Signs/I&O 03/30/21 19:17 Temp 36.7 Pulse 100 Resp 16 B/P (MAP) 154/94 (114) Pulse Ox 97 O2 Delivery Room Air (JESSE ORDOÑEZ DO) Blood Pressure Mean: 114 Departure Impression Primary Impression: Chronic back pain Qualified Codes: M54.41 - Lumbago with sciatica, right side; M54.42 - Lumbago with sciatica, left side; G89.29 - Other chronic pain Additional Impressions: Lumbar radiculopathy Back strain Qualified Codes: S39.012A - Strain of muscle, fascia and tendon of lower back, initial encounter Neck pain Disposition: HOME, SELF-CARE Condition: Improved Departure-Patient Inst. Decision time for Depature: 19:55 (BASIL CASAREZ) Referrals: NO,LOCAL PHYSICIAN (PCP/Family) Primary Care Physician Patient Instructions: Back Muscle Strain (DC), Chronic Neck Pain (DC) Add. Discharge Instructions: Alternate Tylenol 650 mg with ibuprofen 600 mg every 4 hours for pain. Alternate between heat and ice to your back and neck. Follow-up with Dr. Bill for the MRI. Take the prednisone as prescribed. Use the muscle relaxant as needed. Return to the emergency department for new, urgent healthcare needs. All discharge instructions reviewed with patient and/or family. Voiced understanding. Scripts Cyclobenzaprine HCl (Cyclobenzaprine HCl) 10 Mg Tablet 10 MG PO Q8H PRN for SPASMS, #15 TAB 0 Refills Prov: BASIL CASAREZ 03/30/21 Prednisone (Prednisone) 20 Mg Tab 40 MG PO DAILY, #6 TAB 0 Refills Prov: BASIL CASAREZ 03/30/21 ATTENDING PHYSICIAN NOTE: I WAS PHYSICALLY PRESENT ER PHYSICIAN, WHEN THIS PATIENT WAS IN ER, BUT I WAS NOT INVOLVED IN DECISION MAKING OR ANY CARE OF THIS PATIENT. (JESSE ORDOÑEZ DO) Copy Copies To 1: MICHELLE BILL MD, AMY ARNP Mar 30, 2021 19:49 JESSE ORDOÑEZ DO Mar 31, 2021 02:03
[2021-03-30 19:50] LABS: BILIRUBIN,URINE NEGATIVE (NEGATIVE); CLARITY,URINE CLEAR; COLOR,URINE YELLOW; GLUCOSE, URINE (UA) NEGATIVE (NEGATIVE); KETONES,URINE NEGATIVE (NEGATIVE); LEUKOCYTE ESTERASE ,URINE NEGATIVE (NEGATIVE); NITRITE,URINE NEGATIVE (NEGATIVE); PROTEIN,URINE NEGATIVE (NEGATIVE)
[2021-03-30 19:58] LABS: BACTERIA,URINE TRACE /HPF; SQUAMOUS EPITHELIAL CELL,UR 0-2 /HPF; WBC,URINE 0-2 /HPF
[2021-03-30] MEDS ORDERED: PRD20T PO (20:06)
[2021-03-30] MEDS ORDERED: CYCL10TA9 PO (20:06)
== END 2021-03-30 20:10 | disposition home or self-care (01) ==
LOC: EDUNIT# 19:13 → ER 19:14
DX: S39.012A Strain of muscle, fascia and tendon of lower back, initial encounter (principal); G89.29 Other chronic pain; M54.16 Radiculopathy, lumbar region; M54.2 Cervicalgia; J45.909 Unspecified asthma, uncomplicated; E78.00 Pure hypercholesterolemia, unspecified; F41.9 Anxiety disorder, unspecified; F20.9 Schizophrenia, unspecified; F32.9 Major depressive disorder, single episode, unspecified; E11.9 Type 2 diabetes mellitus without complications; K21.9 Gastro-esophageal reflux disease without esophagitis; Z72.0 Tobacco use; Z79.899 Other long term (current) drug therapy; Z79.84 Long term (current) use of oral hypoglycemic drugs; X50.0XXA Overexertion from strenuous movement or load, initial encounter
CPT/HCPCS: 81000; 99283

== ENCOUNTER 2021-06-02 14:36 | Emergency (ER) | payer MEDICAID ==
[~2021-06-02] VITALS: Ht 157 cm; Wt 86.0 kg
[~2021-06-02 14:36] MED LIST changes: +CYCL10TA25 PO; +DULA3PEN; +HYDR50TA76; +ROSU40TA23
[2021-06-02 14:40] VITALS: BP 176/91
--- NOTE | 2021-06-02 15:03 | ED Neck-Back Pain/Injury ---
General Chief Complaint: General Problems/Pain Stated Complaint: NECK PAIN Nursing Triage Note: AMB TO FAST TRACK WITH COMPLAINTS OF CHONIC NECK PAIN THAT IS HURTING WORSE ET NOT RELIEVED BY IBUPROFEN. ALSO COMPLAINS OF STOMACH PAIN X3-4 DAYS. Source of Information: Patient Exam Limitations: No Limitations (FELIPE ESCOBAR STUDENT) History of Present Illness Date Seen by Provider: Jun 02, 2021 Time Seen by Provider: 14:50 Location: C-Spine Timing/Duration: Getting Worse Pain/Injury Location: Neck Modifying Factors: Improves With Pain Medication Associated Symptoms: No fever, No lower back pain (FELIPE ESCOBAR STUDENT) Allergies and Home Medications Allergies Coded Allergies: No Known Drug Allergies (Unverified , 08/15/12) Patient Home Medication List Home Medication List Reviewed: Yes (CASSIA ORANTES MD) Albuterol Sulfate (Proventil Hfa) 6.7 Gm Hfa.aer.ad, 2 PUFF IH Q4H PRN for SHORTNESS OF BREATH, (Reported) Entered as Reported by: WING LIGHT on 04/23/15 1151 Albuterol Sulfate (Proair Hfa) 1 Puff Puff, 2 PUFF IH Q4H Prescribed by: CASSIA ORANTES on 06/07/20 2348 Atorvastatin Calcium (Atorvastatin Calcium) 40 Mg Tablet, 40 MG PO HS, (Reported) Entered as Reported by: DEVORAH RAZA on 01/10/182324 Cyclobenzaprine HCl (Cyclobenzaprine HCl) 10 Mg Tablet, 10 MG PO Q8H PRN for SPASMS Prescribed by: BASIL CASAREZ on 03/30/212005 Divalproex Sodium (Divalproex Sodium ER) 500 Mg Tab.er.24h, 1,000 MG PO HS, (Reported) Entered as Reported by: DEVORAH RAZA on 01/10/182324 Divalproex Sodium (Divalproex Sodium ER) 250 Mg Tab.er.24h, 250 MG PO DAILY, (Reported) Entered as Reported by: DEVORAH RAZA on 01/10/182324 Docusate Sodium (Docusate Sodium) 100 Mg Capsule, 100 MG PO BID PRN for CONSTIPATION Prescribed by: VENKAT LOOMIS on 04/29/15 0834 Dulaglutide (Trulicity) 3 Mg/0.5 Ml Pen.injctr, (Reported) Entered as Reported by: PO WELSH on 03/30/211925 Haloperidol (Haloperidol) 10 Mg Tablet, 10 MG PO HS, (Reported) Entered as Reported by: DEVORAH RAZA on 01/10/182324 Haloperidol (Haloperidol) 5 Mg Tablet, 5 MG PO DAILY, (Reported) Entered as Reported by: DEVORAH RAZA on 01/10/182324 Hydroxyzine HCl (Hydroxyzine HCl) 25 Mg Tablet, 25-50 MG PO DAILY, (Reported) Entered as Reported by: DEVORAH RAZA on 01/10/182324 Hydroxyzine HCl (Hydroxyzine HCl) 50 Mg Tablet, (Reported) Entered as Reported by: PO WELSH on 03/30/211925 Ibuprofen (Ibuprofen) 600 Mg Tablet, 600 MG PO TID PRN for PAIN, (Reported) Entered as Reported by: DEVORAH RAZA on 11/13/14 1129 Ibuprofen (Ibuprofen) 600 Mg Tablet, 600 MG PO Q6H Prescribed by: VENKAT LOOMIS on 04/29/15 0834 Insulin Aspart (Novolog Flexpen) 300 Units/3 Ml Solution, 10 UNITS SQ AC Prescribed by: CHIN RUSH on 01/11/18 1015 Insulin Detemir (Levemir Flextouch) 100 Unit/1 Ml Insuln.pen, 40 UNIT SQ HS Prescribed by: CHIN RUSH on 01/11/18 1015 Levothyroxine Sodium (Levothyroxine Sodium) 75 Mcg Tablet, 75 MCG PO HS, (Reported) Entered as Reported by: WING LIGHT on 04/23/15 1151 Metformin HCl (Metformin HCl ER) 500 Mg Tab.er.24, 500 MG PO BID, (Reported) Entered as Reported by: DEVORAH RAZA on 01/10/18 232 Naproxen (Naprosyn) 500 Mg Tablet, 500 MG PO BID Prescribed by: TRICE GALO on 08/13/18 1848 [place], Insulin Disposable (Advocate Pen [place]) 1 Each Dis.needle, EACH ACHS, (DME) Prescribed by: CHIN RUSH on 01/11/18 1015 Paliperidone (Paliperidone ER) 9 Mg Tab.er.24, 9 MG PO DAILY, (Reported) Entered as Reported by: DEVORAH RAZA on 01/10/182324 Prednisone (Prednisone) 20 Mg Tab, 40 MG PO DAILY Prescribed by: TRICE GALO on 08/13/18 184 Prednisone (Prednisone) 20 Mg Tab, 40 MG PO DAILY Prescribed by: BASIL CASAREZ on 03/30/212005 Ranitidine HCl (Ranitidine HCl) 150 Mg Capsule, 150 MG PO BID, (Reported) Entered as Reported by: DEVORAH RAZA on 01/10/182324 Rosuvastatin Calcium (Rosuvastatin Calcium) 40 Mg Tablet, (Reported) Entered as Reported by: PO WELSH on 03/30/211925 Terconazole (Terconazole) 45 Gm Cream.appl, 1 UNIT TOP BID Prescribed by: CHIN RUSH on 01/11/18 1015 Tramadol HCl (Tramadol HCl) 50 Mg Tablet, 50 MG PO Q6H PRN for PAIN Prescribed by: CASSIA ORANTES on 06/02/21 1519 Trazodone HCl (Trazodone HCl) 150 Mg Tablet, 150 MG PO HS, (Reported) Entered as Reported by: DEVORAH RAZA on 01/10/182324 Triamcinolone Acet (Triamcinolone Acetonide 0.025%) 15 Gm Cr, 1 UNIT TOP BID Prescribed by: CHIN RUSH on 01/11/18 1015 Review of Systems Constitutional: see HPI EENTM: no symptoms reported Respiratory: no symptoms reported Cardiovascular: no symptoms reported Gastrointestinal: no symptoms reported Genitourinary: no symptoms reported : No Musculoskeletal: back pain, neck pain Skin: no symptoms reported Psychiatric/Neurological: No Symptoms Reported (CASSIA ORANTES MD) All Other Systems Reviewed Negative Unless Noted: Yes (CASSIA ORANTES MD) Past Zicpmym-Rhvqdt-Etopee Hx Patient Social History Smoking Status: Current Everyday Smoker Alcohol Use?: No (FELIPE ESCOBAR MED STUDENT) Immunizations Up To Date Tetanus Booster (TDap): Unknown PED Vaccines UTD: Yes First/Initial COVID19 Vaccinat: 01/06 Second COVID19 Vaccination [place]: 02/03/21 COVID19 Vaccine Validation Leader: BRANDO (FELIPE ESCOBAR MED STUDENT) Seasonal Allergies Seasonal Allergies: No (FELIPE ESCOBAR MED STUDENT) Past Medical History Surgery/Hospitalization HX: THRYOID,HIGH CHOLESTEROL, BULDGING CERVICAL DISC,MULTIPLE PSYCH DX, TUBAL, HYSTORECTOMY, RECTAL Surgeries: Yes Bladder Surgery, Hysterectomy Respiratory: Yes Asthma Cardiac: Yes High Cholesterol Neurological: No Reproductive Disorders: Yes (CPP,SUDHEER III) Female 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 OCCASIONAL DIARRHEA) Gastroesophageal Reflux Musculoskeletal: Yes Arthritis, Chronic Back Pain Endocrine: Yes (NEW DX OF DIABETES 01/09/18) Diabetes, Non-Insulin dep HEENT: No Cancer: No Psychosocial: Yes Sleep Difficulties, Anxiety, PTSD, Personality Disorder, Schizophrenia, Depression Integumentary: No Blood Disorders: No Adverse Reaction/Blood Tranf: No (FELIPE ESCOBAR STUDENT) Family Medical History Alcoholism 19 FATHER Thyroid disease 19 MOTHER No Pertinent Family Hx (FELIPE ESCOBAR STUDENT) Physical Exam Vital Signs Vital Signs - First Documented 06/02/21 14:40 Temp 36.3 Pulse 99 Resp 16 B/P (MAP) 176/91 (119) Pulse Ox 97 O2 Delivery Room Air (CASSIA ORANTES MD) Vital Signs Capillary Refill : Less Than 3 Seconds (FELIPE ESCOBAR STUDENT) Height, Weight, BMI Height: 5'2.00" Weight: 260lbs. 5.0oz. 117.393957nu; 34.00 BMI Method:Stated General Appearance: WD/WN, Other (appears uncomfortable) HEENT: PERRL/EOMI; No Scleral Icterus (L), No Scleral Icterus (R); Other (bilateral paraspinal cervical tenderness with hypertonicity, right greater than left; no bruising or signs of trauma; BUE NVI distally, normal sensation) Neck: Normal Inspection Cardiovascular: Regular Rate, Rhythm, No Edema, No Murmur Respiratory: Chest Non Tender, Lungs Clear, Normal Breath Sounds, No Accessory Muscle Use, No Respiratory Distress Peripheral Pulses: 2+ Radial Pulses (R), 2+ Radial Pulses (L) Gastrointestinal: Non Tender, Soft; No Distended Back: No Vertebral Tenderness; No Decreased Range of Motion Extremity: Normal Inspection, Normal Range of Motion Neurologic/Psychiatric: Alert, Oriented x3, No Motor/Sensory Deficits, Normal Mood/Affect Skin: Normal Color, Warm/Dry (FELIPE ESCOBAR MED STUDENT) Progress/Results/Core Measures Results/Orders My Orders Orders - CASSIA ORANTES MD Orphenadrine Inj (Ed Only) (Norflex Inje (06/02/21 15:15) Ketorolac Injection (Toradol Injection) (06/02/21 15:15) (CASSIA ORANTES MD) Vital Signs/I&O 06/02/21 14:40 Temp 36.3 Pulse 99 Resp 16 B/P (MAP) 176/91 (119) Pulse Ox 97 O2 Delivery Room Air (CASSIA ORANTES MD) Blood Pressure Mean: 119 Progress Progress Note : Time: 15:19 Progress Note 36-year-old female presents to the emergency department today with a chief complaint of an exacerbation of her chronic neck pain. Patient states that she has had this for at least the last year but over the last 3 days it is worse. She has been taking to 600 mg ibuprofen tablets once a day without relief of symptoms. She has been using a heating pad and ice packs without relief of symptoms. She states it hurts to turn her head in either direction. She describes tingling in her bilateral hands as well as bilateral feet. No loss of bowel or bladder function. Is able to urinate normally. Denies weakness in her upper extremities. No recent trauma. Physical exam is unremarkable, normal strength and sensation. 2+ DTRs at the brachioradialis, 1+ at the elbow. Negative Tromner's sign. Patient is requesting 10 days of tramadol. I advised her I can give her 3. Recommended [id number]-vrqjyqb Salonpas pain patches as well as referral to [facility] for states. All questions have been sought and answered. Patient is stable for discharge. (CASSIA ORANTES MD) Departure Impression Primary Impression: Chronic neck pain Disposition: 01 HOME, SELF-CARE Condition: Stable Departure-Patient Inst. Decision time for Depature: 15:16 (CASSIA ORANTES MD) Referrals: MICHELLE BILL MD (PCP/Family) Primary Care Physician Patient Instructions: Chronic Neck Pain (DC) Add. Discharge Instructions: Drink plenty of fluids to stay well-hydrated. Instead of ibuprofen, give your stomach a rest and take Tylenol extra strength 2 tablets every 6 hours as needed for pain. You can apply [id number]-pff-fuegjgl lidocaine patches to the sore areas of your neck muscles. These can be obtained at [facility] pharmacy. "Salon Pas" is a common pain patch with lidocaine. I have given you a prescription for 3 days of tramadol. Please follow-up with your primary care doctor for further pain management. You can also call [facility] in [place] for follow-up for pain management and further evaluation by spine surgeon. Return to the emergency room if you have worse pain especially associated with numbness of your arms, loss of function or any other emergent concerning symptoms. Scripts Tramadol HCl (Tramadol HCl) 50 Mg Tablet 50 MG PO Q6H PRN for PAIN for 3 Days, #12 TAB 0 Refills Prov: CASSIA ORANTES MD 06/02/21 Verification and Attestation of Medical Student E/M Service A medical student performed and documented this service in my presence. I reviewed and verified all information documented by the medical student and made modifications to such information, when appropriate. I personally performed the physical exam and medical decision making. Cassia Orantes, Jun 03, 2021,18:46 (CASSIA ORANTES MD) FELIPE ESCOBAR MED STUDENT Jun 02, 2021 15:03 CASSIA ORANTES MD Jun 02, 2021 15:21
[2021-06-02] MEDS ORDERED: ORPHENADRINE 60 MG/2 ML (NORFLEX) AMP (ED ONLY) IM ONE (15:15)
[2021-06-02] MEDS ORDERED: KETOROLAC 30 MG/ML VIAL IM ONE (15:15)
[2021-06-02] MEDS ORDERED: TRM50T PO (15:19)
== END 2021-06-02 15:40 | disposition home or self-care (01) ==
LOC: EDUNIT# 14:36 → ER 14:37
DX: G89.29 Other chronic pain (principal); M54.2 Cervicalgia; E11.9 Type 2 diabetes mellitus without complications; E78.00 Pure hypercholesterolemia, unspecified; E07.9 Disorder of thyroid, unspecified; F20.9 Schizophrenia, unspecified; F41.9 Anxiety disorder, unspecified; F32.9 Major depressive disorder, single episode, unspecified; F60.9 Personality disorder, unspecified; J45.909 Unspecified asthma, uncomplicated; F17.200 Nicotine dependence, unspecified, uncomplicated; Z79.4 Long term (current) use of insulin; Z79.52 Long term (current) use of systemic steroids; Z79.84 Long term (current) use of oral hypoglycemic drugs; Z79.890 Hormone replacement therapy; Z79.899 Other long term (current) drug therapy
CPT/HCPCS: 99281

== ENCOUNTER 2021-07-02 20:39 | Emergency (ER) | payer MEDICAID ==
[2021-07-02] MEDS ORDERED: TRAM-42 PO (21:02)
--- NOTE | 2021-07-02 21:02 | ED Neck-Back Pain/Injury ---
General Chief Complaint: Head/Cervical Problems Stated Complaint: NECK PAIN Nursing Triage Note: PT AMB TO ER WITH C/O NECK PAIN THAT HAD A SUDDEN ONSET TONIGHT WHILE WATCHING TV. PT HAS HX OF BULGING DISC Source of Information: Patient Exam Limitations: No Limitations (CONCETTA LOVING APRN) History of Present Illness Date Seen by Provider: Jul 02, 2021 Time Seen by Provider: 20:59 Initial Comments chronic neck pain worse for 2 to 3 days no injury. No fever no chills. She has been seen here in ER several times for this over the previous years. Hurts to turn her head left to right. Location: C-Spine Timing/Duration: Intermittent Severity: Moderate Method of Injury: Unknown Associated Symptoms: denies symptoms (CONCETTA LOVING APRN) Allergies and Home Medications Allergies Coded Allergies: No Known Drug Allergies (Unverified , 08/15/12) Patient Home Medication List Home Medication List Reviewed: Yes (CONCETTA LOVING APRN) Albuterol Sulfate (Proventil Hfa) 6.7 Gm Hfa.aer.ad, 2 PUFF IH Q4H PRN for SHORTNESS OF BREATH, (Reported) Entered as Reported by: WING LIGHT on 04/23/15 1151 Albuterol Sulfate (Proair Hfa) 1 Puff Puff, 2 PUFF IH Q4H Prescribed by: CASSIA ORANTES on 06/07/20 2348 Atorvastatin Calcium (Atorvastatin Calcium) 40 Mg Tablet, 40 MG PO HS, (Reported) Entered as Reported by: DEVORAH RAZA on 01/10/182324 Cyclobenzaprine HCl (Cyclobenzaprine HCl) 10 Mg Tablet, 10 MG PO Q8H PRN for SPASMS Prescribed by: BASIL CASAREZ on 03/30/212005 Divalproex Sodium (Divalproex Sodium ER) 500 Mg Tab.er.24h, 1,000 MG PO HS, (Reported) Entered as Reported by: DEVORAH RAZA on 01/10/182324 Divalproex Sodium (Divalproex Sodium ER) 250 Mg Tab.er.24h, 250 MG PO DAILY, (Reported) Entered as Reported by: DEVORAH RAZA on 01/10/182324 Docusate Sodium (Docusate Sodium) 100 Mg Capsule, 100 MG PO BID PRN for CONSTIPATION Prescribed by: VENKAT LOOMIS on 04/29/15 0834 Dulaglutide (Trulicity) 3 Mg/0.5 Ml Pen.injctr, (Reported) Entered as Reported by: PO WELSH on 03/30/211925 Haloperidol (Haloperidol) 10 Mg Tablet, 10 MG PO HS, (Reported) Entered as Reported by: DEVORAH RAZA on 01/10/182324 Haloperidol (Haloperidol) 5 Mg Tablet, 5 MG PO DAILY, (Reported) Entered as Reported by: DEVORAH RAZA on 01/10/182324 Hydroxyzine HCl (Hydroxyzine HCl) 25 Mg Tablet, 25-50 MG PO DAILY, (Reported) Entered as Reported by: DEVORAH RAZA on 01/10/182324 Hydroxyzine HCl (Hydroxyzine HCl) 50 Mg Tablet, (Reported) Entered as Reported by: PO WELSH on 03/30/211925 Ibuprofen (Ibuprofen) 600 Mg Tablet, 600 MG PO TID PRN for PAIN, (Reported) Entered as Reported by: DEVORAH RAZA on 11/13/14 1129 Ibuprofen (Ibuprofen) 600 Mg Tablet, 600 MG PO Q6H Prescribed by: VENKTA LOOMIS on 04/29/15 0834 Insulin Aspart (Novolog Flexpen) 300 Units/3 Ml Solution, 10 UNITS SQ AC Prescribed by: CHIN RUSH on 01/11/18 1015 Insulin Detemir (Levemir Flextouch) 100 Unit/1 Ml Insuln.pen, 40 UNIT SQ HS Prescribed by: CHIN RUSH on 01/11/18 1015 Levothyroxine Sodium (Levothyroxine Sodium) 75 Mcg Tablet, 75 MCG PO HS, (Reported) Entered as Reported by: WING LIGHT on 04/23/15 1151 Metformin HCl (Metformin HCl ER) 500 Mg Tab.er.24, 500 MG PO BID, (Reported) Entered as Reported by: DEVORAH RAZA on 01/10/182324 Naproxen (Naprosyn) 500 Mg Tablet, 500 MG PO BID Prescribed by: TRICE GALO on 08/13/18 1848 [place], Insulin Disposable (Advocate Pen [place]) 1 Each Dis.needle, EACH ACHS, (DME) Prescribed by: CHIN RUSH on 01/11/18 1015 Paliperidone (Paliperidone ER) 9 Mg Tab.er.24, 9 MG PO DAILY, (Reported) Entered as Reported by: DEVORAH RAZA on 01/10/182324 Prednisone (Prednisone) 20 Mg Tab, 40 MG PO DAILY Prescribed by: TRICE GALO on 08/13/18 1848 Prednisone (Prednisone) 20 Mg Tab, 40 MG PO DAILY Prescribed by: BASIL CASAREZ on 03/30/212005 Ranitidine HCl (Ranitidine HCl) 150 Mg Capsule, 150 MG PO BID, (Reported) Entered as Reported by: DEVORAH RAZA on 01/10/182324 Rosuvastatin Calcium (Rosuvastatin Calcium) 40 Mg Tablet, (Reported) Entered as Reported by: PO WELSH on 03/30/21 192 Terconazole (Terconazole) 45 Gm Cream.appl, 1 UNIT TOP BID Prescribed by: CHIN RUSH on 01/11/18 101 Tramadol HCl (Tramadol HCl) 50 Mg Tablet, 50 MG PO Q6H PRN for PAIN Prescribed by: CASSIA ORANTES on 06/02/21 1519 Tramadol HCl (Ultram) 50 Mg Tablet, 50 MG PO Q6H PRN for PAIN-SEVERE (8-10) Prescribed by: CONCETTA LOVING on 07/02/21 210 Trazodone HCl (Trazodone HCl) 150 Mg Tablet, 150 MG PO HS, (Reported) Entered as Reported by: DEVORAH RAZA on 01/10/182324 Triamcinolone Acet (Triamcinolone Acetonide 0.025%) 15 Gm Cr, 1 UNIT TOP BID Prescribed by: CHIN RUSH on 01/11/18 1015 Review of Systems Constitutional: see HPI EENTM: see HPI Respiratory: no symptoms reported Cardiovascular: no symptoms reported Genitourinary: no symptoms reported Musculoskeletal: see HPI, neck pain Skin: no symptoms reported Psychiatric/Neurological: No Symptoms Reported (CONCETTA LOVING APRN) Past Jofweda-Jbioki-Rlwxrf Hx Patient Social History Tobacco Use?: Yes Tobacco type used: Cigarettes Smoking Status: Current Everyday Smoker Use of E-Cig and/or Vaping dev: Yes Substance use?: No Alcohol Use?: No Pt feels they are or have been: No (CONCETTA LOVING APRN) Immunizations Up To Date Tetanus Booster (TDap): Unknown PED Vaccines UTD: Yes Influenza Vaccine Up-to-Date: No; Not Current First/Initial COVID19 Vaccinat: 01/06 Second COVID19 Vaccination [place]: 02/03/21 COVID19 Vaccine Rn Transitional: BRANDO (CONCETTA LOVING APRN) Seasonal Allergies Seasonal Allergies: No (CONCETTA LOVING APRN) Past Medical History Surgery/Hospitalization HX: THRYOID,HIGH CHOLESTEROL, BULDGING CERVICAL DISC,MULTIPLE PSYCH DX, TUBAL, HYSTORECTOMY, RECTAL Surgeries: Yes Bladder Surgery, Hysterectomy Respiratory: Yes Asthma Cardiac: Yes High Cholesterol Neurological: No Reproductive Disorders: Yes (CPP,SUDHEER III) Female Reproductive Disorders: Endometriosis 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 OCCASIONAL DIARRHEA) Gastroesophageal Reflux Musculoskeletal: Yes Arthritis, Chronic Back Pain Endocrine: Yes (NEW DX OF DIABETES 01/09/18) Diabetes, Non-Insulin dep HEENT: No Cancer: No Psychosocial: Yes Sleep Difficulties, Anxiety, PTSD, Personality Disorder, Schizophrenia, Depr ession Integumentary: No Blood Disorders: No Adverse Reaction/Blood Tranf: No (CONCETTA LOVING APRN) Family Medical History Alcoholism 19 FATHER Thyroid disease 19 MOTHER No Pertinent Family Hx (CONCETTA LOVING APRN) Physical Exam Vital Signs Vital Signs - First Documented 07/02/21 20:50 Temp 36.6 Pulse 100 Resp 20 B/P (MAP) 138/95 (109) Pulse Ox 97 O2 Delivery Room Air (TIAGO,JESSE K DO) Vital Signs Capillary Refill : (CONCETTA LOVING APRN) Height, Weight, BMI Height: 5'2.00" Weight: 260lbs. 5.0oz. 117.392457pa; 34.00 BMI Method:Stated General Appearance: No Apparent Distress, WD/WN HEENT: PERRL/EOMI, TMs Normal Neck: Full Range of Motion, Normal Inspection Respiratory: No Accessory Muscle Use, No Respiratory Distress Gastrointestinal: Normal Bowel Sounds, Non Tender, Soft Extremity: Normal Capillary Refill, Normal Inspection Neurologic/Psychiatric: Alert, Oriented x3 Skin: Normal Color, Warm/Dry (CONCETTA LOVING APRN) Progress/Results/Core Measures Results/Orders Vital Signs/I&O 07/02/21 07/02/21 20:50 21:12 Temp 36.6 36.6 Pulse 100 100 Resp 20 20 B/P (MAP) 138/95 (109) 138/95 Pulse Ox 97 97 O2 Delivery Room Air Room Air (JESSE ORDOÑEZ DO) Blood Pressure Mean: 109 Departure Impression Primary Impression: Torticollis Disposition: 01 HOME, SELF-CARE Condition: Stable Departure-Patient Inst. Decision time for Depature: 21:01 (CONCETTA LOVING APRN) Referrals: MICHELLE BILL MD (PCP/Family) Primary Care Physician Patient Instructions: Torticollis, Adult Scripts Tramadol HCl (Ultram) 50 Mg Tablet 50 MG PO Q6H PRN for PAIN-SEVERE (8-10), #10 TAB Prov: CONCETTA LOVING APRN 07/02/21 ATTENDING PHYSICIAN NOTE: I WAS PHYSICALLY PRESENT ER PHYSICIAN WHEN THIS PATIENT WAS IN ER, I WAS NOT INVOLVED IN ANY DECISION MAKING OR ANY CARE OF THIS PATIENT (JESSE ORDOÑEZ DO) CONCETTA LOVING APRN Jul 02, 2021 21:02 JESSE ORDOÑEZ DO Jul 03, 2021 02:29
[2021-07-02 21:12] VITALS: BP 138/95
[2021-07-03] MEDS ORDERED: TRM50T PO (11:35)
== END 2021-07-02 21:12 | disposition home or self-care (01) ==
LOC: EDUNIT# 20:39 → ER 20:44
DX: M43.6 Torticollis (principal); J45.909 Unspecified asthma, uncomplicated; F17.210 Nicotine dependence, cigarettes, uncomplicated; E78.00 Pure hypercholesterolemia, unspecified; E11.9 Type 2 diabetes mellitus without complications; G89.29 Other chronic pain; M54.9 Dorsalgia, unspecified; F41.9 Anxiety disorder, unspecified; F32.9 Major depressive disorder, single episode, unspecified; F20.9 Schizophrenia, unspecified; K21.9 Gastro-esophageal reflux disease without esophagitis; Z79.84 Long term (current) use of oral hypoglycemic drugs; Z79.891 Long term (current) use of opiate analgesic; Z79.899 Other long term (current) drug therapy
CPT/HCPCS: 99283

== ENCOUNTER 2021-07-27 11:34 | Emergency (ER) | payer MEDICAID ==
[~2021-07-27] VITALS: Ht 157.5 cm; Wt 87.9 kg
[~2021-07-27 11:34] MED LIST changes: +TRAM-42 PO
[2021-07-27] MEDS ORDERED: NAPR-1071 PO (11:57)
[2021-07-27] MEDS ORDERED: METH-732 PO (11:57)
--- NOTE | 2021-07-27 11:58 | ED General ---
General Chief Complaint: Head/Cervical Problems Stated Complaint: NECK AND BACK PAIN Source of Information: Patient Exam Limitations: No Limitations History of Present Illness Date Seen by Provider: Jul 27, 2021 Time Seen by Provider: 11:54 Initial Comments to ER with chronic neck and back pain worse for the past 3 days. She was seen here in May for this and June. She has not yet followed up with [facility] as she was instructed to do each time. However she reports that she does have an upcoming appointment with [facility]. She has taken nothing at home for the pain today. She arrives by ambulance. No fevers or chills or trauma. Timing/Duration: Constant, Getting Worse Severity: Moderate Associated Systoms: Denies Symptoms Allergies and Home Medications Allergies Coded Allergies: No Known Drug Allergies (Unverified , 08/15/12) Patient Home Medication List Home Medication List Reviewed: Yes Albuterol Sulfate (Proventil Hfa) 6.7 Gm Hfa.aer.ad, 2 PUFF IH Q4H PRN for SHORTNESS OF BREATH, (Reported) Entered as Reported by: WING LIGHT on 04/23/15 1151 Albuterol Sulfate (Proair Hfa) 1 Puff Puff, 2 PUFF IH Q4H Prescribed by: CASSIA ORANTES on 06/07/20 2348 Atorvastatin Calcium (Atorvastatin Calcium) 40 Mg Tablet, 40 MG PO HS, (Reported) Entered as Reported by: DEVORAH RAZA on 01/10/182324 Cyclobenzaprine HCl (Cyclobenzaprine HCl) 10 Mg Tablet, 10 MG PO Q8H PRN for SPASMS Prescribed by: BASLI CASAREZ on 03/30/212005 Divalproex Sodium (Divalproex Sodium ER) 500 Mg Tab.er.24h, 1,000 MG PO HS, (Rep orted) Entered as Reported by: DEVORAH RAZA on 01/10/182324 Divalproex Sodium (Divalproex Sodium ER) 250 Mg Tab.er.24h, 250 MG PO DAILY, (Reported) Entered as Reported by: DEVORAH RAZA on 01/10/182324 Docusate Sodium (Docusate Sodium) 100 Mg Capsule, 100 MG PO BID PRN for CONSTIPATION Prescribed by: VENKAT LOOMIS on 04/29/15 0834 Dulaglutide (Trulicity) 3 Mg/0.5 Ml Pen.injctr, (Reported) Entered as Reported by: PO WELSH on 03/30/211925 Haloperidol (Haloperidol) 10 Mg Tablet, 10 MG PO HS, (Reported) Entered as Reported by: DEVORAH RAZA on 01/10/182324 Haloperidol (Haloperidol) 5 Mg Tablet, 5 MG PO DAILY, (Reported) Entered as Reported by: DEVORAH RAZA on 01/10/182324 Hydroxyzine HCl (Hydroxyzine HCl) 25 Mg Tablet, 25-50 MG PO DAILY, (Reported) Entered as Reported by: DEVORAH RAZA on 01/10/182324 Hydroxyzine HCl (Hydroxyzine HCl) 50 Mg Tablet, (Reported) Entered as Reported by: PO WELSH on 03/30/211925 Ibuprofen (Ibuprofen) 600 Mg Tablet, 600 MG PO TID PRN for PAIN, (Reported) Entered as Reported by: DEVORAH RAZA on 11/13/14 112 Ibuprofen (Ibuprofen) 600 Mg Tablet, 600 MG PO Q6H Prescribed by: VENKAT LOOMIS on 04/29/15 0834 Insulin Aspart (Novolog Flexpen) 300 Units/3 Ml Solution, 10 UNITS SQ AC Prescribed by: CHIN RUSH on 01/11/18 1015 Insulin Detemir (Levemir Flextouch) 100 Unit/1 Ml Insuln.pen, 40 UNIT SQ HS Prescribed by: CHIN RUSH on 01/11/18 1015 Levothyroxine Sodium (Levothyroxine Sodium) 75 Mcg Tablet, 75 MCG PO HS, (Reported) Entered as Reported by: WING LIGHT on 04/23/15 1151 Metformin HCl (Metformin HCl ER) 500 Mg Tab.er.24, 500 MG PO BID, (Reported) Entered as Reported by: DEVORAH RAZA on 01/10/182324 Naproxen (Naprosyn) 500 Mg Tablet, 500 MG PO BID Prescribed by: TRICE GALO on 08/13/18 1848 [place], Insulin Disposable (Advocate Pen [place]) 1 Each Dis.needle, EACH ACHS, (DME) Prescribed by: CHIN RUSH on 01/11/18 1015 Paliperidone (Paliperidone ER) 9 Mg Tab.er.24, 9 MG PO DAILY, (Reported) Entered as Reported by: DEVORAH RAZA on 01/10/182324 Prednisone (Prednisone) 20 Mg Tab, 40 MG PO DAILY Prescribed by: TRICE GALO on 08/13/18 184 Prednisone (Prednisone) 20 Mg Tab, 40 MG PO DAILY Prescribed by: BASIL CASAREZ on 03/30/212005 Ranitidine HCl (Ranitidine HCl) 150 Mg Capsule, 150 MG PO BID, (Reported) Entered as Reported by: DEVORAH RAZA on 01/10/182324 Rosuvastatin Calcium (Rosuvastatin Calcium) 40 Mg Tablet, (Reported) Entered as Reported by: PO WELSH on 03/30/21 192 Terconazole (Terconazole) 45 Gm Cream.appl, 1 UNIT TOP BID Prescribed by: CHIN RUSH on 01/11/18 1015 Tramadol HCl (Tramadol HCl) 50 Mg Tablet, 50 MG PO Q6H PRN for PAIN Prescribed by: CASSIA ORANTES on 06/02/21 1519 Tramadol HCl (Ultram) 50 Mg Tablet, 50 MG PO Q6H PRN for PAIN-SEVERE (8-10) Prescribed by: CONCETTA LOVING on 07/02/21 210 Tramadol HCl (Tramadol HCl) 50 Mg Tablet, 50 MG PO Q6H PRN for PAIN Prescribed by: BASIL CASAREZ on 07/03/21 1138 Trazodone HCl (Trazodone HCl) 150 Mg Tablet, 150 MG PO HS, (Reported) Entered as Reported by: DEVORAH RAZA on 01/10/182324 Triamcinolone Acet (Triamcinolone Acetonide 0.025%) 15 Gm Cr, 1 UNIT TOP BID Prescribed by: CHIN RUSH on 01/11/18 1015 Review of Systems Review of Systems Constitutional: see HPI EENTM: see HPI Respiratory: no symptoms reported Cardiovascular: no symptoms reported Genitourinary: no symptoms reported Musculoskeletal: see HPI, neck pain Skin: no symptoms reported Psychiatric/Neurological: No Symptoms Reported Hematologic/Lymphatic: No Symptoms Reported Past Vsltpub-Himmtc-Dzudrl Hx Immunizations Up To Date Tetanus Booster (TDap): Unknown PED Vaccines UTD: Yes First/Initial COVID19 Vaccinat: 7/21 Second COVID19 Vaccination [place]: 02/03/21 Seasonal Allergies Seasonal Allergies: No Past Medical History Surgery/Hospitalization HX: THRYOID,HIGH CHOLESTEROL, BULDGING CERVICAL DISC,MULTIPLE PSYCH DX, TUBAL, HYSTORECTOMY, RECTAL Surgeries: Yes Bladder Surgery, Hysterectomy Respiratory: Yes Asthma Cardiac: Yes High Cholesterol Neurological: No Reproductive Disorders: Yes (CPP,SUDHEER III) Female Reproductive Disorders: Endometriosis 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 OCCASIONAL DIARRHEA) Gastroesophageal Reflux Musculoskeletal: Yes Arthritis, Chronic Back Pain Endocrine: Yes (NEW DX OF DIABETES 01/09/18) Diabetes, Non-Insulin dep HEENT: No Cancer: No Psychosocial: Yes Sleep Difficulties, Anxiety, PTSD, Personality Disorder, Schizophrenia, Depression Integumentary: No Blood Disorders: No Adverse Reaction/Blood Tranf: No Family Medical History Alcoholism 19 FATHER Thyroid disease 19 MOTHER No Pertinent Family Hx Physical Exam Vital Signs Capillary Refill : Height, Weight, BMI Height: 5'2.00" Weight: 260lbs. 5.0oz. 117.645958vd; 34.00 BMI Method:Stated General Appearance: No Apparent Distress, WD/WN Eyes: Bilateral Eye Normal Inspection, Bilateral Eye PERRL, Bilateral Eye EOMI HEENT: PERRL/EOMI, TMs Normal Neck: Full Range of Motion, Normal Inspection, Tender Lateral Respiratory: No Accessory Muscle Use, No Respiratory Distress Gastrointestinal: Normal Bowel Sounds, Non Tender, Soft Extremity: Normal Capillary Refill, Normal Inspection Neurologic/Psychiatric: Alert, Oriented x3 Skin: Normal Color, Warm/Dry Progress/Results/Core Measures Suspected Sepsis SIRS Temperature: Pulse: Respiratory Rate: Blood Pressure / Mean: Results/Orders My Orders Orders - CONCETTA LOVING APRN Ketorolac Injection (Toradol Injection) (07/27/21 12:00) Orphenadrine Inj (Ed Only) (Norflex Inje (07/27/21 12:00) Vital Signs/I&O Capillary Refill : Departure Impression Primary Impression: Chronic neck pain Disposition: 01 HOME, SELF-CARE Condition: Stable Departure-Patient Inst. Decision time for Depature: 11:56 Referrals: MICHELLE BILL MD (PCP/Family) Primary Care Physician Patient Instructions: Neck Pain, Chronic Pain Add. Discharge Instructions: 1. Follow-up with [facility] scheduled. Return to ER for any worsening. All discharge instructions reviewed with patient and/or family. Voiced understanding. Scripts Naproxen (Naprosyn) 500 Mg Tablet 500 MG PO BID PRN for PAIN-MODERATE (5-7), #30 TAB 0 Refills Prov: CONCETTA LOVING APRN 07/27/21 Methocarbamol (Methocarbamol) 750 Mg Tablet 750 MG PO Q6-8HR for Back Pain, #20 TAB Prov: CONCETTA LOVING APRN 07/27/21 CONCETTA LOVING APRN Jul 27, 2021 11:58
[2021-07-27] MEDS ORDERED: KETOROLAC 60 MG/2 ML VIAL IM ONE (12:00)
[2021-07-27] MEDS ORDERED: ORPHENADRINE 60 MG/2 ML (NORFLEX) AMP (ED ONLY) IM ONE (12:00)
[2021-07-27 12:44] VITALS: BP 150/94
== END 2021-07-27 12:44 | disposition home or self-care (01) ==
LOC: EDUNIT# 11:34 → ER 11:35
DX: G89.29 Other chronic pain (principal); M54.2 Cervicalgia; J45.909 Unspecified asthma, uncomplicated; E78.00 Pure hypercholesterolemia, unspecified; K21.9 Gastro-esophageal reflux disease without esophagitis; F41.9 Anxiety disorder, unspecified; E11.9 Type 2 diabetes mellitus without complications; F32.9 Major depressive disorder, single episode, unspecified; F20.9 Schizophrenia, unspecified; Z79.84 Long term (current) use of oral hypoglycemic drugs; Z79.899 Other long term (current) drug therapy; Z79.891 Long term (current) use of opiate analgesic
CPT/HCPCS: 99284

== ENCOUNTER 2021-11-28 21:43 | Emergency (ER) | payer MEDICAID ==
[~2021-11-28 21:43] MED LIST changes: +METH-732 PO
[2021-11-28] MEDS ORDERED: TRM50T PO (22:09)
[2021-11-28] MEDS ORDERED: MELO15TA39 PO (22:09)
--- NOTE | 2021-11-28 22:10 | ED Back Pain ---
General Chief Complaint: Head/Cervical Problems Stated Complaint: NECK AND BACK PAIN Nursing Triage Note: TO ED VIA POV AND AMBULATORY TO FT3 WITH C/O LEFT SIDE NECK PAIN. HX CHRONIC NECK PAIN. TOOK 800MG IBUPROFEN W/O RELIEF. 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 STATES SHE "HAS AN APPT WITH " FOR F/U FOR THIS CHRONIC PAIN. Source of Information: Patient Exam Limitations: No Limitations History of Present Illness Date Seen by Provider: Nov 28, 2021 Time Seen by Provider: 22:07 Initial Comments Patient is a 36-year-old female presents ED with left-sided neck pain. Neck pain started about 3 to 4 hours ago. Pain is described as sharp and constant. 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 similar type pain in the past and same location. This has been ongoing and states she has a history of a bulging disc in her back. Has been taken 800 mg ibuprofen without much improvement. She is scheduled to follow-up with pains specialist here in [place] for further treatment. She reports numbness and tingling her hands but this is nothing acut e. She denies of any falls, fever, weight loss, nausea, vomiting, diarrhea. She does report a headache secondary to the pain Allergies and Home Medications Allergies Coded Allergies: No Known Drug Allergies (Unverified , 08/15/12) Patient Home Medication List Home Medication List Reviewed: Yes Albuterol Sulfate (Proventil Hfa) 6.7 Gm Hfa.aer.ad, 2 PUFF IH Q4H PRN for SHORTNESS OF BREATH, (Reported) Entered as Reported by: WING LIGHT on 04/23/15 1151 Albuterol Sulfate (Proair Hfa) 1 Puff Puff, 2 PUFF IH Q4H Prescribed by: CASSIA ORANTES on 06/07/20 2348 Atorvastatin Calcium (Atorvastatin Calcium) 40 Mg Tablet, 40 MG PO HS, (Reported) Entered as Reported by: DEVORAH RAZA on 01/10/18 2325 Cyclobenzaprine HCl (Cyclobenzaprine HCl) 10 Mg Tablet, 10 MG PO Q8H PRN for SPASMS Prescribed by: BASIL CASAREZ on 03/30/212005 Divalproex Sodium (Divalproex Sodium ER) 500 Mg Tab.er.24h, 1,000 MG PO HS, (Reported) Entered as Reported by: DEVORAH RAZA on 01/10/182324 Divalproex Sodium (Divalproex Sodium ER) 250 Mg Tab.er.24h, 250 MG PO DAILY, (Reported) Entered as Reported by: DEVORAH RAZA on 01/10/182324 Docusate Sodium (Docusate Sodium) 100 Mg Capsule, 100 MG PO BID PRN for CONSTIPATION Prescribed by: VENKAT LOOMIS on 04/29/15 08 Dulaglutide (Trulicity) 3 Mg/0.5 Ml Pen.injctr, (Reported) Entered as Reported by: PO WELSH on 03/30/211925 Haloperidol (Haloperidol) 10 Mg Tablet, 10 MG PO HS, (Reported) Entered as Reported by: DEVORAH RAZA on 01/10/182324 Haloperidol (Haloperidol) 5 Mg Tablet, 5 MG PO DAILY, (Reported) Entered as Reported by: DEVORAH RAZA on 01/10/182324 Hydroxyzine HCl (Hydroxyzine HCl) 25 Mg Tablet, 25-50 MG PO DAILY, (Reported) Entered as Reported by: DEVORAH RAZA on 01/10/182324 Hydroxyzine HCl (Hydroxyzine HCl) 50 Mg Tablet, (Reported) Entered as Reported by: PO WELSH on 03/30/211925 Ibuprofen (Ibuprofen) 600 Mg Tablet, 600 MG PO TID PRN for PAIN, (Reported) Entered as Reported by: DEVORAH RAZA on 11/13/14 112 Ibuprofen (Ibuprofen) 600 Mg Tablet, 600 MG PO Q6H Prescribed by: VENKAT LOOMIS on 04/29/15 0834 Insulin Aspart (Novolog Flexpen) 300 Units/3 Ml Solution, 10 UNITS SQ AC Prescribed by: CHIN RUSH on 01/11/18 1015 Insulin Detemir (Levemir Flextouch) 100 Unit/1 Ml Insuln.pen, 40 UNIT SQ HS Prescribed by: CHIN RUSH on 01/11/18 1015 Levothyroxine Sodium (Levothyroxine Sodium) 75 Mcg Tablet, 75 MCG PO HS, (Reported) Entered as Reported by: WING LIGHT on 04/23/15 1151 Meloxicam (Meloxicam) 15 Mg Tablet, 15 MG PO DAILY Prescribed by: LOBO MONTIEL on 11/28/212208 Metformin HCl (Metformin HCl ER) 500 Mg Tab.er.24, 500 MG PO BID, (Reported) Entered as Reported by: DEVORAH RAZA on 01/10/182324 Methocarbamol (Methocarbamol) 750 Mg Tablet, 750 MG PO Q6-8HR Prescribed by: CONCETTA LOVING on 07/27/21 115 Naproxen (Naprosyn) 500 Mg Tablet, 500 MG PO BID Prescribed by: TRICE GALO on 08/13/181847 Naproxen (Naprosyn) 500 Mg Tablet, 500 MG PO BID PRN for PAIN-MODERATE (5-7) Prescribed by: CONCETTA LOVING on 07/27/21 115 Eucha, Insulin Disposable (Advocate Pen Eucha) 1 Each Dis.needle, EACH [facility] ACHS, (DME) Prescribed by: CHIN RUSH on 01/11/18 101 Paliperidone (Paliperidone ER) 9 Mg Tab.er.24, 9 MG PO DAILY, (Reported) Entered as Reported by: DEVORAH RAZA on 01/10/182324 Prednisone (Prednisone) 20 Mg Tab, 40 MG PO DAILY Prescribed by: TRICE GALO on 08/13/181847 Prednisone (Prednisone) 20 Mg Tab, 40 MG PO DAILY Prescribed by: BASIL CASAREZ on 03/30/212005 Ranitidine HCl (Ranitidine HCl) 150 Mg Capsule, 150 MG PO BID, (Reported) Entered as Reported by: DEVORAH RAZA on 01/10/182324 Rosuvastatin Calcium (Rosuvastatin Calcium) 40 Mg Tablet, (Reported) Entered as Reported by: PO WELSH on 03/30/211925 Terconazole (Terconazole) 45 Gm Cream.appl, 1 UNIT TOP BID Prescribed by: CHIN RUSH on 01/11/18 1015 Tramadol HCl (Tramadol HCl) 50 Mg Tablet, 50 MG PO Q6H PRN for PAIN Prescribed by: CASSIA ORANTES on 06/02/21 151 Tramadol HCl (Ultram) 50 Mg Tablet, 50 MG PO Q6H PRN for PAIN-SEVERE (8-10) Prescribed by: CONCETTA LOVING on 07/02/212101 Tramadol HCl (Tramadol HCl) 50 Mg Tablet, 50 MG PO Q6H PRN for PAIN Prescribed by: BASIL CASAREZ on 07/03/21 1138 Tramadol HCl (Tramadol HCl) 50 Mg Tablet, 50 MG PO Q4H PRN for PAIN-MODERATE (5- 7) Prescribed by: LOBO MONTIEL on 11/28/21 2210 Trazodone HCl (Trazodone HCl) 150 Mg Tablet, 150 MG PO HS, (Reported) Entered as Reported by: DEVORAH RAZA on 01/10/18 2325 Triamcinolone Acet (Triamcinolone Acetonide 0.025%) 15 Gm Cr, 1 UNIT TOP BID Prescribed by: CHIN RUSH on 01/11/18 1015 Review of Systems Constitutional: No chills, No diaphoresis EENTM: No ear pain, No blurred vision, No double vision Respiratory: No cough Cardiovascular: No chest pain, No edema Gastrointestinal: No abdominal pain, No diarrhea, No nausea, No vomiting Genitourinary: No decreased output, No discharge Musculoskeletal: No back pain; joint pain, neck pain All Other Systems Reviewed Negative Unless Noted: Yes Past Rheaiqp-Hjdcyp-Cycspp Hx Patient Social History Tobacco Use?: Yes Tobacco type used: Cigarettes Smoking Status: Current Everyday Smoker E-Cig or Vaping type used: Nicotine Substance use?: No Alcohol Use?: No Immunizations Up To Date Tetanus Booster (TDap): Unknown PED Vaccines UTD: Yes First/Initial COVID19 Vaccinat: 01/06 Second COVID19 Vaccination [place]: 02/03/21 Third COVID19 Vaccination Date: 01/06 Seasonal Allergies Seasonal Allergies: No Past Medical History Surgery/Hospitalization HX: THRYOID,HIGH CHOLESTEROL, BULDGING CERVICAL DISC,MULTIPLE PSYCH DX, TUBAL, HYSTORECTOMY, RECTAL Surgeries: Yes Bladder Surgery, Hysterectomy Respiratory: Yes Asthma Cardiac: Yes High Cholesterol Neurological: No Reproductive Disorders: Yes (CPP,SUDHEER III) Female Reproductive Disorders: 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 OCCASIONAL DIARRHEA) Gastroesophageal Reflux Musculoskeletal: Yes Arthritis, Chronic Back Pain Endocrine: Yes (NEW DX OF DIABETES 01/09/18) Diabetes, Non-Insulin dep HEENT: No Cancer: No Psychosocial: Yes Sleep Difficulties, Anxiety, PTSD, Personality Disorder, Schizophrenia, Depression Integumentary: No Blood Disorders: No Adverse Reaction/Blood Tranf: No Family Medical History Alcoholism 19 FATHER Thyroid disease 19 MOTHER No Pertinent Family Hx Physical Exam Vital Signs Vital Signs - First Documented 11/28/21 21:57 Temp 36.8 Pulse 106 Resp 18 B/P (MAP) 150/104 (119) Pulse Ox 95 O2 Delivery Room Air Capillary Refill : Less Than 3 Seconds Height, Weight, BMI Height: 5'2.00" Weight: 260lbs. 5.0oz. 117.252700zr; 35.00 BMI Method:Stated General Appearance: No Apparent Distress, WD/WN HEENT: PERRL/EOMI, TMs Normal, Normal ENT Inspection, Pharynx Normal Neck: Full Range of Motion, Normal Inspection, Supple, Other (Left cervical paraspinal muscle tenderness. Normal active range of motion of the neck. No swelling erythema or ecchymosis.) Cardiovascular: Regular Rate, Rhythm, No Edema, No Gallop, No JVD Respiratory: Chest Non Tender, Lungs Clear Gastrointestinal: Normal Bowel Sounds, No Organomegaly, No Pulsatile Mass, Non Tender Back: No Vertebral Tenderness Extremity: Normal Capillary Refill, Normal Inspection, Normal Range of Motion, Non Tender Neurologic/Psychiatric: Alert, Oriented x3, No Motor/Sensory Deficits Progress/Results/Core Measures Results/Orders My Orders Orders - TONE RHODES Orphenadrine Inj (Ed Only) (Norflex Inje (11/28/21 22:15) Ketorolac Injection (Toradol Injection) (11/28/21 22:15) Ketorolac Injection (Toradol Injection) (11/28/21 22:15) Ketorolac Injection (Toradol Injection) (11/28/21 22:30) Orphenadrine Inj (Ed Only) (Norflex Inje (11/28/21 22:15) Medications Given in ED Current Medications Medications Dose Ordered Sig/Kumar Route Start Time Stop Time Status Last Admin Dose Admin Orphenadrine Citrate 60 mg ONCE ONCE IM 11/28/21 22:15 11/28/21 22:16 11/28/21 22:18 60 MG Vital Signs/I&O 11/28/21 21:57 Temp 36.8 Pulse 106 Resp 18 B/P (MAP) 150/104 (119) Pulse Ox 95 O2 Delivery Room Air Blood Pressure Mean: 119 Departure Communication (PCP) Patient with chronic neck pain. No recent trauma. No fever. No neurological red flag findings. History of cervical bulging disc warning patient. Schedule follow-up with pain specialist. Outpatient follow-up. Will discharge with anti-inflammatories. Not to take with ibuprofen. Will discharge a few days of tramadol for breakthrough pain. Return precaution were discussed Impression Primary Impression: Neck pain Disposition: HOME, SELF-CARE Condition: Stable Departure-Patient Inst. Decision time for Depature: 22:08 Referrals: [facility] [place] PHYSICIAN (PCP) Primary Care Physician Patient Instructions: Neck Pain ED Add. Discharge Instructions: Follow-up with pain specialist. Recommend ice and rest. Do not take ibuprofen with meloxicam. All discharge instructions reviewed with patient and/or family. Voiced understanding. Scripts Meloxicam (Meloxicam) 15 Mg Tablet 15 MG PO DAILY, #12 TAB Prov: TONE RHODES 11/28/21 Tramadol HCl (Tramadol HCl) 50 Mg Tablet 50 MG PO Q4H PRN for PAIN-MODERATE (5-7), #6 TAB Prov: TONE RHODES 11/28/21 TONE RHODES Nov 28, 2021 22:10
[2021-11-28] MEDS ORDERED: KETOROLAC 60 MG/2 ML VIAL IM ONE (22:15)
[2021-11-28] MEDS ORDERED: KETOROLAC 30 MG/ML VIAL ONE (22:15)
[2021-11-28] MEDS ORDERED: ORPHENADRINE 60 MG/2 ML (NORFLEX) AMP (ED ONLY) ONE (22:15)
[2021-11-28] MEDS ORDERED: ORPHENADRINE 60 MG/2 ML (NORFLEX) AMP (ED ONLY) IM ONE (22:15)
[2021-11-28] MEDS ORDERED: KETOROLAC 30 MG/ML VIAL IM ONE (22:30)
[2021-11-28 22:31] VITALS: BP 150/104
== END 2021-11-28 22:31 | disposition home or self-care (01) ==
LOC: EDUNIT# 21:43 → ER 21:44
DX: M54.2 Cervicalgia (principal); F17.210 Nicotine dependence, cigarettes, uncomplicated; Z87.39 Personal history of other diseases of the musculoskeletal system and connective tissue
CPT/HCPCS: 99284

== ENCOUNTER 2021-11-30 20:00 | Emergency (ER) | payer MEDICAID ==
[~2021-11-30 20:00] MED LIST changes: +MELO15TA39 PO
[2021-11-30] MEDS ORDERED: ASPIRIN 81 MG CHEW (CHILDREN'S ASA) PO ONE (20:30)
[2021-11-30] MEDS ORDERED: PANTOPRAZOLE 40 MG (PROTONIX) VIAL IV ONE (20:30)
[2021-11-30] MEDS ORDERED: ANTACID SUSP 30 ML UDC (MYLANTA) PO ONE (20:30)
[2021-11-30] MEDS ORDERED: LIDOCAINE 2% VISCOUS 15 ML UDC PO ONE (20:30)
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
[2021-11-30 20:35] LABS: BASOPHILS # (AUTO) 0.1 10^3/uL (0.0-0.1); BASOPHILS % (AUTO) 1 % (0-10); EOSINOPHILS # (AUTO) 0.4 10^3/uL (0.0-0.3); EOSINOPHILS % (AUTO) 4 % (0-10); HEMATOCRIT 38 % (35-52); HEMOGLOBIN 13.2 g/dL (11.5-16.0); LYMPHOCYTES # (AUTO) 5.1 10^3/uL (1.0-4.0); LYMPHOCYTES % (AUTO) 52 % (12-44); MEAN CORPUSCULAR HEMOGLOBIN 31 pg (25-34); MEAN CORPUSCULAR HGB CONC 35 g/dL (32-36); MEAN CORPUSCULAR VOLUME 89 fL (80-99); MEAN PLATELET VOLUME 9.3 fL (9.0-12.2); MONOCYTES # (AUTO) 0.8 10^3/uL (0.0-1.0); MONOCYTES % (AUTO) 8 % (0-12); NEUTROPHILS # (AUTO) 3.4 10^3/uL (1.8-7.8); NEUTROPHILS % (AUTO) 35 % (42-75); PLATELET COUNT 258 10^3/uL (130-400); WHITE BLOOD COUNT 9.8 10^3/uL (4.3-11.0)
[2021-11-30 20:40] LABS: INR 0.9 (0.8-1.4); PROTHROMBIN TIME PATIENT 12.7 SEC (12.2-14.7)
[2021-11-30 20:49] LABS: ALBUMIN 4.3 GM/DL (3.2-4.5); BILIRUBIN,TOTAL 0.2 MG/DL (0.1-1.0); CALCIUM 9.2 MG/DL (8.5-10.1); CREATININE SERUM 0.84 MG/DL (0.60-1.30); MAGNESIUM 1.5 MG/DL (1.6-2.4); POTASSIUM 3.8 MMOL/L (3.6-5.0); TOTAL PROTEIN 6.9 GM/DL (6.4-8.2)
--- NOTE | 2021-11-30 20:59 | Diagnostic Imaging Report ---
EXAM: CHEST 1 VIEW, AP/PA ONLY INDICATION: Chest pain. COMPARISON: 06/07/2020. FINDINGS: Mild linear atelectasis in the left midlung. Normal heart size and central pulmonary vascularity. No pleural effusion or pneumothorax. No acute osseous findings. IMPRESSION: Mild subsegmental atelectasis in the left midlung. Chest is otherwise negative. Dictated by: Dictated on workstation # [id number]
[2021-11-30] MEDS ORDERED: SUCR1TAB36 PO (21:39)
[2021-11-30] MEDS ORDERED: OMEP20CA18 PO (21:39)
[2021-11-30 21:49] VITALS: BP 136/87
== END 2021-11-30 21:49 | disposition home or self-care (01) ==
LOC: EDUNIT# 20:00 → ER 20:01
DX: K21.00 Gastro-esophageal reflux disease with esophagitis, without bleeding (principal); G89.29 Other chronic pain; M54.2 Cervicalgia; F17.210 Nicotine dependence, cigarettes, uncomplicated
CPT/HCPCS: 36415; 71045; 80053; 83690; 83735; 83874; 84484; 85025; 85379; 85610; 85730; 93005; 93041

== ENCOUNTER 2021-12-25 18:57 | Emergency (ER) | payer MEDICAID ==
[~2021-12-25] VITALS: Ht 160 cm; Wt 89.1 kg
[~2021-12-25 18:57] MED LIST changes: +OMEP20CA18 PO; +SUCR1TAB36 PO
[2021-12-25] MEDS ORDERED: NS IV 1000 ML 1,000 ML IV STA (19:18)
--- NOTE | 2021-12-25 19:21 | ED Headache ---
General Chief Complaint: Head/Cervical Problems Stated Complaint: MIGRAINE Source: patient History of Present Illness Date Seen by Provider: Dec 25, 2021 Time Seen by Provider: 19:22 Initial Comments Patient presents to the emergency room for evaluation of a headache. She states that she has chronic migraines and that she has taken ibuprofen for the swelling without relief. She currently rates her pain as a dull 6 out of 10 and states that it has been a couple months and she had a headache this severe. She states this is fairly usual for her and she denies any blurry vision, double vision, fever, chills, weakness or other symptoms. Severity/Quality: moderate Location: global Prior Headaches/Recent Trauma: frequent headaches Allergies and Home Medications Allergies Coded Allergies: No Known Drug Allergies (Unverified , 08/15/12) Patient Home Medication List Home Medication List Reviewed: Yes Albuterol Sulfate (Proventil Hfa) 6.7 Gm Hfa.aer.ad, 2 PUFF IH Q4H PRN for SHORTNESS OF BREATH, (Reported) Entered as Reported by: WING LIGHT on 04/23/15 1151 Albuterol Sulfate (Proair Hfa) 1 Puff Puff, 2 PUFF IH Q4H Prescribed by: CASSIA ORANTES on 06/07/20 2348 Atorvastatin Calcium (Atorvastatin Calcium) 40 Mg Tablet, 40 MG PO HS, (Re ported) Entered as Reported by: DEVORAH RAZA on 01/10/182324 Cyclobenzaprine HCl (Cyclobenzaprine HCl) 10 Mg Tablet, 10 MG PO Q8H PRN for SPASMS Prescribed by: BASIL CASAREZ on 03/30/212005 Divalproex Sodium (Divalproex Sodium ER) 500 Mg Tab.er.24h, 1,000 MG PO HS, (Reported) Entered as Reported by: DEVORAH RAZA on 01/10/18 232 Divalproex Sodium (Divalproex Sodium ER) 250 Mg Tab.er.24h, 250 MG PO DAILY, (Reported) Entered as Reported by: DEVORAH RAZA on 01/10/18 232 Docusate Sodium (Docusate Sodium) 100 Mg Capsule, 100 MG PO BID PRN for CONSTIPATION Prescribed by: VENKAT LOOMIS on 04/29/15 0834 Dulaglutide (Trulicity) 3 Mg/0.5 Ml Pen.injctr, (Reported) Entered as Reported by: PO WELSH on 03/30/211925 Haloperidol (Haloperidol) 10 Mg Tablet, 10 MG PO HS, (Reported) Entered as Reported by: DEVORAH RAZA on 01/10/182324 Haloperidol (Haloperidol) 5 Mg Tablet, 5 MG PO DAILY, (Reported) Entered as Reported by: DEVORAH RAZA on 01/10/182324 Hydroxyzine HCl (Hydroxyzine HCl) 25 Mg Tablet, 25-50 MG PO DAILY, (Reported) Entered as Reported by: DEVORAH RAZA on 01/10/182324 Hydroxyzine HCl (Hydroxyzine HCl) 50 Mg Tablet, (Reported) Entered as Reported by: PO WELSH on 03/30/211925 Ibuprofen (Ibuprofen) 600 Mg Tablet, 600 MG PO TID PRN for PAIN, (Reported) Entered as Reported by: DEVORAH RAZA on 11/13/14 112 Ibuprofen (Ibuprofen) 600 Mg Tablet, 600 MG PO Q6H Prescribed by: VENKAT LOOMIS on 04/29/15 0834 Insulin Aspart (Novolog Flexpen) 300 Units/3 Ml Solution, 10 UNITS SQ AC Prescribed by: CHIN RUSH on 01/11/18 1015 Insulin Detemir (Levemir Flextouch) 100 Unit/1 Ml Insuln.pen, 40 UNIT SQ HS Prescribed by: CHIN RUSH on 01/11/18 1015 Levothyroxine Sodium (Levothyroxine Sodium) 75 Mcg Tablet, 75 MCG PO HS, (Reported) Entered as Reported by: WING LIGHT on 04/23/15 1151 Meloxicam (Meloxicam) 15 Mg Tablet, 15 MG PO DAILY Prescribed by: LOBO MONTIEL on 11/28/21 220 Metformin HCl (Metformin HCl ER) 500 Mg Tab.er.24, 500 MG PO BID, (Reported) Entered as Reported by: DEVORAH RAZA on 01/10/182324 Methocarbamol (Methocarbamol) 750 Mg Tablet, 750 MG PO Q6-8HR Prescribed by: CONCETTA LOVING on 07/27/21 115 Naproxen (Naprosyn) 500 Mg Tablet, 500 MG PO BID Prescribed by: TRICE GALO on 08/13/181847 Naproxen (Naprosyn) 500 Mg Tablet, 500 MG PO BID PRN for PAIN-MODERATE (5-7) Prescribed by: CONCETTA LOVING on 07/27/21 1157 [place], Insulin Disposable (Advocate Pen [place]) 1 Each Dis.needle, EACH ACHS, (DME) Prescribed by: CHIN RUSH on 01/11/18 101 Omeprazole (Omeprazole) 20 Mg Capsule.dr, 20 MG PO BID Prescribed by: TRICE GALO on 11/30/212138 Paliperidone (Paliperidone ER) 9 Mg Tab.er.24, 9 MG PO DAILY, (Reported) Entered as Reported by: DEVORAH RAZA on 01/10/182324 Prednisone (Prednisone) 20 Mg Tab, 40 MG PO DAILY Prescribed by: TRICE GALO on 08/13/181847 Prednisone (Prednisone) 20 Mg Tab, 40 MG PO DAILY Prescribed by: BASIL CASAREZ on 03/30/212005 Ranitidine HCl (Ranitidine HCl) 150 Mg Capsule, 150 MG PO BID, (Reported) Entered as Reported by: DEVORAH RAZA on 01/10/182324 Rosuvastatin Calcium (Rosuvastatin Calcium) 40 Mg Tablet, (Reported) Entered as Reported by: PO WELSH on 03/30/211925 Sucralfate (Carafate) 1 Gram Tablet, 1 GM PO QIDACHS Prescribed by: TRICE GALO on 11/30/212138 Terconazole (Terconazole) 45 Gm Cream.appl, 1 UNIT TOP BID Prescribed by: CHIN RUSH on 01/11/18 1015 Tramadol HCl (Tramadol HCl) 50 Mg Tablet, 50 MG PO Q6H PRN for PAIN Prescribed by: CASSIA ORANTES on 06/02/21 1519 Tramadol HCl (Ultram) 50 Mg Tablet, 50 MG PO Q6H PRN for PAIN-SEVERE (8-10) Prescribed by: CONCETTA LOVING on 07/02/21 210 Tramadol HCl (Tramadol HCl) 50 Mg Tablet, 50 MG PO Q6H PRN for PAIN Prescribed by: BASIL CASAREZ on 07/03/21 1138 Tramadol HCl (Tramadol HCl) 50 Mg Tablet, 50 MG PO Q4H PRN for PAIN-MODERATE (5- 7) Prescribed by: LOBO MONTIEL on 11/28/21 2210 Trazodone HCl (Trazodone HCl) 150 Mg Tablet, 150 MG PO HS, (Reported) Entered as Reported by: DEVORAH RAZA on 01/10/18 2325 Triamcinolone Acet (Triamcinolone Acetonide 0.025%) 15 Gm Cr, 1 UNIT TOP BID Prescribed by: CHIN RUSH on 01/11/18 1015 Review of Systems Review of Systems Constitutional: no symptoms reported Eyes: No Symptoms Reported; Denies Photophobia, Denies Previous Injury, Denies Vision Changes Ears, Nose, Mouth, Throat: no symptoms reported Respiratory: no symptoms reported Cardiovascular: no symptoms reported Gastrointestinal: no symptoms reported Genitourinary: no symptoms reported Musculoskeletal: no symptoms reported Skin: no symptoms reported Psychiatric/Neurological: Headache Past Vgogsad-Rfbyht-Xebqhz Hx Patient Social History Tobacco Use?: Yes Substance use?: No Alcohol Use?: No Pt feels they are or have been: No Immunizations Up To Date Tetanus Booster (TDap): Unknown PED Vaccines UTD: Yes First/Initial COVID19 Vaccinat: 01/06 Second COVID19 Vaccination [place]: 02/03/21 Third COVID19 Vaccination Date: 07/10 Seasonal Allergies Seasonal Allergies: No Past Medical History Surgery/Hospitalization HX: THRYOID,HIGH CHOLESTEROL, BULDGING CERVICAL DISC,MULTIPLE PSYCH DX, TUBAL, HYSTORECTOMY, RECTAL, bladder, asthma, anxiety/depression, ptsd, schizophrenia, headaches, htn Surgeries: Yes Bladder Surgery, Hysterectomy Respiratory: Yes Asthma Cardiac: Yes High Cholesterol Neurological: No Reproductive Disorders: Yes (CPP,SUDHEER III) Female Reproductive Disorders: Endometriosis 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 OCCASIONAL DIARRHEA) Gastroesophageal Reflux Musculoskeletal: Yes Arthritis, Chronic Back Pain Endocrine: Yes (NEW DX OF DIABETES 01/09/18) Diabetes, Non-Insulin dep HEENT: No Cancer: No Psychosocial: Yes Sleep Difficulties, Anxiety, PTSD, Personality Disorder, Schizophrenia, Depression Integumentary: No Blood Disorders: No Adverse Reaction/Blood Tranf: No Family Medical History Alcoholism 19 FATHER Thyroid disease 19 MOTHER No Pertinent Family Hx Physical Exam Vital Signs Vital Signs - First Documented 12/25/21 19:09 Temp 36.9 Pulse 93 Resp 18 B/P (MAP) 134/85 (101) Pulse Ox 98 O2 Delivery Room Air Capillary Refill : Height, Weight, BMI Height: 5'2.00" Weight: 260lbs. 5.0oz. 117.389466mx; 35.00 BMI Method:Stated General Appearance: WD/WN, no apparent distress HEENT: PERRL/EOMI, normal ENT inspection Neck: non-tender, supple Cardiovascular: regular rate, rhythm Respiratory: chest non-tender, lungs clear Gastrointestinal: normal bowel sounds, non tender, soft Back: normal inspection, no CVA tenderness Extremities: normal range of motion, non-tender Psychiatric: alert, oriented x 3 Crainal Nerves: normal hearing, normal speech, PERRL Skin: normal color, warm/dry Lymphatic: no adenopathy Progress/Results/Core Measures Results/Orders My Orders Orders - LEON SIMS Ketorolac Injection (Toradol Injection) (12/25/21 19:30) Ns Iv 1000 Ml (Sodium Chloride 0.9%) (12/25/21 19:18) Diphenhydramine Injection (Benadryl Inje (12/25/21 19:30) Metoclopramide Injection (Reglan Injecti (12/25/21 19:30) Medications Given in ED Current Medications Medications Dose Ordered Sig/Kumar Route Start Time Stop Time Status Last Admin Dose Admin Diphenhydramine HCl 25 mg ONCE ONCE IVP 12/25/21 19:30 12/25/21 19:31 DC 12/25/21 19:28 25 MG Ketorolac Tromethamine 15 mg ONCE ONCE IV 12/25/21 19:30 12/25/21 19:31 DC 12/25/21 19:28 15 MG Metoclopramide HCl 10 mg ONCE ONCE IVP 12/25/21 19:30 12/25/21 19:31 DC 12/25/21 19:27 10 MG Vital Signs/I&O 12/25/21 19:09 Temp 36.9 Pulse 93 Resp 18 B/P (MAP) 134/85 (101) Pulse Ox 98 O2 Delivery Room Air Departure Communication (Admissions) Patient is afebrile, nontoxic and in no distress. We will treat her migraine headache ears symptomatically and I recommended that she follow-up with her primary care for further long-term treatment of her headaches. No evidence for suspicion of dissection, intracranial hemorrhage, skull fracture, meningitis, encephalitis or other emergent condition. Patient feels markedly improved after therapy. She states her pain is now a 2/10 and she is ready to go home. Impression Primary Impression: Migraine Disposition: HOME, SELF-CARE Condition: Stable Departure-Patient Inst. Decision time for Depature: 19:26 Referrals: HAZEL DOOLEY ROTO MIXER OPERATOR (PCP/Family) Primary Care Physician Patient Instructions: Migraines (DC) Add. Discharge Instructions: Please follow up with your primary care provider as we discussed. Return to the ER with any severe changes or worsening of symptoms. All discharge instructions reviewed with patient and/or family. Voiced understanding. Scripts Diclofenac Sodium (Diclofenac Sodium) 75 Mg Tablet. 75 MG PO BID for 7 Days, #14 TAB Prov: LEON SIMS 12/25/21 LEON SIMS Dec 25, 2021 19:21
[2021-12-25] MEDS ORDERED: diphenhydrAMINE 50 MG/ML INJ (BENADRYL) IVP ONE (19:30)
[2021-12-25] MEDS ORDERED: KETOROLAC 30 MG/ML VIAL IV ONE (19:30)
[2021-12-25] MEDS ORDERED: METOCLOPRAMIDE INJ 10 MG/2 ML (REGLAN) IVP ONE (19:30)
[2021-12-25] MEDS ORDERED: DICL75TA2 PO (20:16)
[2021-12-25 20:18] VITALS: BP 127/81
== END 2021-12-25 20:21 | disposition home or self-care (01) ==
LOC: EDUNIT# 18:57 → ER 18:59
DX: G43.709 Chronic migraine without aura, not intractable, without status migrainosus (principal)

== ENCOUNTER 2022-02-04 19:51 | Emergency (ER) | payer MEDICAID ==
[~2022-02-04] VITALS: Ht 157.5 cm; Wt 86.2 kg
[~2022-02-04 19:51] MED LIST changes: +DICL75TA2 PO
--- NOTE | 2022-02-04 20:07 | ED Lower Extremity ---
General Chief Complaint: Lower Extremity Stated Complaint: R LEG/ANKLE PAIN Source: patient Exam Limitations: no limitations History of Present Illness Date Seen by Provider: Feb 04, 2022 Time Seen by Provider: 20:05 Initial Comments Patient is a 36-year-old female who presents the ED with right ankle and right lower leg pain. Symptoms started 30 minutes ago. Was walking down the stairs outside rotator her ankle and a hole dug by her dog. She felt a pop and noted swelling to the right lateral ankle. Complaining of mid to lower tib-fib pain. Denies taking thing for pain. No history of previous fracture. Denies of any distal numbness and tingling, nausea vomit, diarrhea fever, chills Allergies and Home Medications Allergies Coded Allergies: No Known Drug Allergies (Unverified , 08/15/12) Patient Home Medication List Home Medication List Reviewed: Yes Albuterol Sulfate (Proventil Hfa) 6.7 Gm Hfa.aer.ad, 2 PUFF IH Q4H PRN for SHORTNESS OF BREATH, (Reported) Entered as Reported by: WING LIGHT on 04/23/15 1151 Albuterol Sulfate (Proair Hfa) 1 Puff Puff, 2 PUFF IH Q4H Prescribed by: CASSIA ORANTES on 06/07/20 2348 Atorvastatin Calcium (Atorvastatin Calcium) 40 Mg Tablet, 40 MG PO HS, (Reported) Entered as Reported by: DEVORAH RAZA on 01/10/182324 Cyclobenzaprine HCl (Cyclobenzaprine HCl) 10 Mg Tablet, 10 MG PO Q8H PRN for SPASMS Prescribed by: BASIL CASAREZ on 03/30/212005 Diclofenac Sodium (Diclofenac Sodium) 75 Mg Tablet.dr, 75 MG PO BID Prescribed by: Carson Proctor on 12/25/212015 Divalproex Sodium (Divalproex Sodium ER) 500 Mg Tab.er.24h, 1,000 MG PO HS, (Reported) Entered as Reported by: DEVORAH RAZA on 01/10/182324 Divalproex Sodium (Divalproex Sodium ER) 250 Mg Tab.er.24h, 250 MG PO DAILY, (Reported) Entered as Reported by: DEVORAH RAZA on 01/10/182324 Docusate Sodium (Docusate Sodium) 100 Mg Capsule, 100 MG PO BID PRN for CONSTIPATION Prescribed by: VENKAT LOOMIS on 04/29/15 0834 Dulaglutide (Trulicity) 3 Mg/0.5 Ml Pen.injctr, (Reported) Entered as Reported by: PO WELSH on 03/30/211925 Haloperidol (Haloperidol) 10 Mg Tablet, 10 MG PO HS, (Reported) Entered as Reported by: DEVORAH RAZA on 01/10/182324 Haloperidol (Haloperidol) 5 Mg Tablet, 5 MG PO DAILY, (Reported) Entered as Reported by: DEVORAH RAZA on 01/10/182324 Hydroxyzine HCl (Hydroxyzine HCl) 25 Mg Tablet, 25-50 MG PO DAILY, (Reported) Entered as Reported by: DEVORAH RAZA on 01/10/182324 Hydroxyzine HCl (Hydroxyzine HCl) 50 Mg Tablet, (Reported) Entered as Reported by: PO WELSH on 03/30/211925 Ibuprofen (Ibuprofen) 600 Mg Tablet, 600 MG PO TID PRN for PAIN, (Reported) Entered as Reported by: DEVORAH RAZA on 11/13/14 112 Insulin Aspart (Novolog Flexpen) 300 Units/3 Ml Solution, 10 UNITS SQ AC Prescribed by: CHIN RUSH on 01/11/18 1015 Insulin Detemir (Levemir Flextouch) 100 Unit/1 Ml Insuln.pen, 40 UNIT SQ HS Prescribed by: CHIN RUSH on 01/11/18 1015 Levothyroxine Sodium (Levothyroxine Sodium) 75 Mcg Tablet, 75 MCG PO HS, ( Reported) Entered as Reported by: WING LIGHT on 04/23/15 1151 Meloxicam (Meloxicam) 15 Mg Tablet, 15 MG PO DAILY Prescribed by: LOBO MONTIEL on 11/28/21 220 Metformin HCl (Metformin HCl ER) 500 Mg Tab.er.24, 500 MG PO BID, (Reported) Entered as Reported by: DEVORAH RAZA on 01/10/182324 Methocarbamol (Methocarbamol) 750 Mg Tablet, 750 MG PO Q6-8HR Prescribed by: CONCETTA LOVING on 07/27/21 1157 Naproxen (Naprosyn) 500 Mg Tablet, 500 MG PO BID Prescribed by: TRICE GALO on 08/13/181847 Naproxen (Naprosyn) 500 Mg Tablet, 500 MG PO BID PRN for PAIN-MODERATE (5-7) Prescribed by: CONCETTA LOVING on 07/27/21 115 Naproxen (Naproxen) 500 Mg Tablet, 500 MG PO Q12H Prescribed by: LOBO MONTIEL on 02/04/222107 [place], Insulin Disposable (Advocate Pen [place]) 1 Each Dis.needle, EACH ACHS, (DME) Prescribed by: CHIN RUSH on 01/11/18 101 Omeprazole (Omeprazole) 20 Mg Capsule.dr, 20 MG PO BID Prescribed by: TRICE GALO on 11/30/212138 Paliperidone (Paliperidone ER) 9 Mg Tab.er.24, 9 MG PO DAILY, (Reported) Entered as Reported by: DEVORAH RAZA on 01/10/182324 Prednisone (Prednisone) 20 Mg Tab, 40 MG PO DAILY Prescribed by: TRICE GALO on 08/13/181847 Prednisone (Prednisone) 20 Mg Tab, 40 MG PO DAILY Prescribed by: BASIL CASAREZ on 03/30/212005 Ranitidine HCl (Ranitidine HCl) 150 Mg Capsule, 150 MG PO BID, (Reported) Entered as Reported by: DEVORAH RAZA on 01/10/182324 Rosuvastatin Calcium (Rosuvastatin Calcium) 40 Mg Tablet, (Reported) Entered as Reported by: PO WELSH on 03/30/211925 Sucralfate (Carafate) 1 Gram Tablet, 1 GM PO QIDACHS Prescribed by: TRICE GALO on 11/30/212138 Terconazole (Terconazole) 45 Gm Cream.appl, 1 UNIT TOP BID Prescribed by: CHIN RUSH on 01/11/18 101 Tramadol HCl (Tramadol HCl) 50 Mg Tablet, 50 MG PO Q6H PRN for PAIN Prescribed by: CASSIA ORANTES on 06/02/21 151 Tramadol HCl (Ultram) 50 Mg Tablet, 50 MG PO Q6H PRN for PAIN-SEVERE (8-10) Prescribed by: CONCETTA LOVING on 07/02/212101 Tramadol HCl (Tramadol HCl) 50 Mg Tablet, 50 MG PO Q6H PRN for PAIN Prescribed by: BASIL CASAREZ on 07/03/21 1138 Tramadol HCl (Tramadol HCl) 50 Mg Tablet, 50 MG PO Q4H PRN for PAIN-MODERATE (5- 7) Prescribed by: LOBO MONTIEL on 11/28/21 2210 Trazodone HCl (Trazodone HCl) 150 Mg Tablet, 150 MG PO HS, (Reported) Entered as Reported by: DEVORAH RAZA on 01/10/18 2325 Triamcinolone Acet (Triamcinolone Acetonide 0.025%) 15 Gm Cr, 1 UNIT TOP BID Prescribed by: CHIN RUSH on 01/11/18 1015 Review of Systems Constitutional: No chills, No diaphoresis, No malaise, No weakness EENTM: No ear pain, No blurred vision, No double vision Respiratory: No cough, No dyspnea on exertion Cardiovascular: No chest pain Gastrointestinal: No abdominal pain, No diarrhea, No nausea, No vomiting Genitourinary: No decreased output Musculoskeletal: No back pain; joint pain, joint swelling, muscle pain Skin: change in color All Other Systems Reviewed Negative Unless Noted: Yes Past Ljlmayh-Dpisgu-Cawimj Hx Immunizations Up To Date Tetanus Booster (TDap): Unknown PED Vaccines UTD: Yes First/Initial COVID19 Vaccinat: 01/06 Second COVID19 Vaccination [place]: 02/03/21 Third COVID19 Vaccination Date: 07/10 Seasonal Allergies Seasonal Allergies: No Past Medical History Surgery/Hospitalization HX: THRYOID,HIGH CHOLESTEROL, BULDGING CERVICAL DISC,MULTIPLE PSYCH DX, TUBAL, HYSTORECTOMY, RECTAL, bladder, asthma, anxiety/depression, ptsd, schizophrenia, headaches, htn Surgeries: Yes Bladder Surgery, Hysterectomy Respiratory: Yes Asthma Cardiac: Yes High Cholesterol Neurological: No Reproductive Disorders: Yes (CPP,SUDHEER III) Female Reproductive Disorders: Endometriosis JAVA SDET History: Hysterectomy 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 OCCASIONAL DIARRHEA) Gastroesophageal Reflux Musculoskeletal: Yes Arthritis, Chronic Back Pain Endocrine: Yes (NEW DX OF DIABETES 01/09/18) Diabetes, Non-Insulin dep HEENT: No Cancer: No Psychosocial: Yes Sleep Difficulties, Anxiety, PTSD, Personality Disorder, Schizophrenia, Depression Integumentary: No Blood Disorders: No Adverse Reaction/Blood Tranf: No Family Medical History Alcoholism 19 FATHER Thyroid disease 19 MOTHER No Pertinent Family Hx Physical Exam Vital Signs Vital Signs - First Documented 02/04/22 19:56 Temp 36.6 Pulse 95 Resp 14 B/P (MAP) 115/79 (91) O2 Delivery Room Air Capillary Refill : Height, Weight, BMI Height: 5'2.00" Weight: 260lbs. 5.0oz. 117.837781wi; 34.00 BMI Method:Stated General Appearance: WD/WN, no apparent distress HEENT: PERRL/EOMI, normal ENT inspection, TMs normal, pharynx normal Neck: non-tender, full range of motion, supple Cardiovascular: regular rate, rhythm, no edema, no gallop, no JVD Respiratory: chest non-tender, lungs clear, normal breath sounds, no respiratory distress Gastrointestinal: normal bowel sounds, non tender, soft Back: normal inspection, no vertebral tenderness Hips: bilateral hip non-tender, bilateral hip normal inspection, bilateral hip normal range of motion Legs: left leg pain, left leg soft tissue tenderness (Tenderness of the left tib-fib), left leg swelling Ankles: left ankle pain, left ankle soft tissue tenderness, left ankle swelling Feet: bilateral foot non-tender, bilateral foot normal inspection, bilateral foot normal range of motion, bilateral foot abrasions/lacerations Neurologic/Tendon: normal sensation, normal motor functions, normal tendon functions 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, no motor/sensory deficits, alert Skin: normal color, warm/dry Progress/Results/Core Measures Results/Orders My Orders Orders - TONE RHODES Ankle, Right, 3 Views (02/04/22 20:05) Tibia/Fibula, Right, 2 Views (02/04/22 20:05) Hydrocodone/Apap 5/325 Tablet (Lortab 5 (02/04/22 21:15) Crutches (02/04/22 21:11) Medications Given in ED Current Medications Medications Dose Ordered Sig/Kumar Route Start Time Stop Time Status Last Admin Dose Admin Acetaminophen/ Hydrocodone Bitart 1 ea ONCE ONCE PO 02/04/22 21:15 02/04/22 21:16 DC 02/04/22 21:22 1 EA Vital Signs/I&O 02/04/22 19:56 Temp 36.6 Pulse 95 Resp 14 B/P (MAP) 115/79 (91) O2 Delivery Room Air Departure Communication (PCP) X-ray negative for fracture. Appears to be ankle sprain. Recommend ice, elevate Jamil wrap for at home. Crutches was provided. Patient Was given dose of pain medication. Will discharge with anti-inflammatories. Orthopedic follow-up in 7 to 10 days for reevaluation with x-ray if symptoms worsen Impression Primary Impression: Ankle sprain Disposition: HOME, SELF-CARE Condition: Stable Departure-Patient Inst. Decision time for Depature: 21:08 Referrals: HAZEL DOOLEY NP (PCP) Primary Care Physician GEOVANNA LAIRD MD Patient Instructions: Ankle Sprain Scripts Naproxen (Naproxen) 500 Mg Tablet 500 MG PO Q12H, #10 TAB Prov: TONE RHODES 02/04/22 Work/School Note: Work Release Form Date Seen in the Emergency Department: Feb 04, 2022 Return to Work: Feb 07, 2022 TONE RHODES Feb 04, 2022 20:07
--- NOTE | 2022-02-04 20:58 | Diagnostic Imaging Report ---
INDICATION: Stepped in hole, fall, pain. TECHNIQUE: AP and lateral views of the right tibia and fibula CORRELATION STUDY: None FINDINGS: The tibia and fibula are intact. There is no evidence for acute fracture. Limited visualized portions of the knee and ankle are unremarkable. Soft tissues are unremarkable. IMPRESSION: 1.Negative for acute bony abnormality of the right leg. Dictated by: Dictated on workstation # [id number]
--- NOTE | 2022-02-04 21:03 | Diagnostic Imaging Report ---
INDICATION: Stepped in hole with fall, pain. TECHNIQUE: Three views of the right ankle. CORRELATION STUDY: 09/16/2012. FINDINGS: The bony alignment is anatomic. The talar dome is intact. The ankle mortise is maintained. Prominent plantar calcaneal spur. There is no acute fracture or dislocation. Prominent soft tissue swelling. IMPRESSION: Negative for acute bony abnormality of the right ankle. Prominent soft tissue edema. Dictated by: Dictated on workstation # [id number]
[2022-02-04] MEDS ORDERED: NAPR-915 PO (21:08)
[2022-02-04] MEDS ORDERED: HYDROcodone/APAP 5 MG/325 MG (LORTAB) TAB PO ONE (21:15)
[2022-02-04 21:24] VITALS: BP 112/74
== END 2022-02-04 21:23 | disposition home or self-care (01) ==
LOC: EDUNIT# 19:51 → ER 19:53
DX: S93.401A Sprain of unspecified ligament of right ankle, initial encounter (principal); X50.1XXA Overexertion from prolonged static or awkward postures, initial encounter; Y93.01 Activity, walking, marching and hiking
CPT/HCPCS: 73590; 73610

== ENCOUNTER 2022-03-27 20:55 | Emergency (ER) | payer MEDICAID ==
[~2022-03-27 20:55] MED LIST changes: +NAPR-915 PO
--- NOTE | 2022-03-27 21:44 | ED Trauma-Multisystem ---
General Chief Complaint: Trauma-Non Activation Stated Complaint: FALL - RIGHT SIDE PAIN Nursing Triage Note: PT AMB TO ED BY POV WITH C/O R HIP, ELBOW, AND ANKLE PAIN. PT REPORTS SHE SLIPPED ON A TOY AND FELL ON HARDWOOD FLOOR. DENIES HEAD INJURY OR LOC. Source of Information: Patient Exam Limitations: No Limitations (ALPESH GONZALEZ) History of Present Illness Date Seen by Provider: Mar 27, 2022 Time Seen by Provider: 21:25 Initial Comments This is a 37 y/o female who presents via private vehicle with right elbow, hip, and ankle pain. Patient reports earlier this evening around 1900 she slipped on a toy and fell on her right side onto a hardwood floor. She states she landed on her right elbow, hip, and ankle, causing an inversion of her ankle. She denies dizziness, presyncope, or syncope prior to the fall. She denies hitting her head and denies loss of consciousness after fall. She states her pain is the worst in her ankle and states it is 9/10. Patient has taken 200mg of ibuprofen prior to arrival with little aid. Patient reports two weeks ago she was seen in the [facility] ER for a right ankle sprain. She states her imaging was negative. That same evening she states she went to [place] and had imaging of her right ankle and foot. She states her right foot imaging was positive for bony fragment. Occurred: Just Prior to Arrival Severity: Mild Pain/Injury Location: Lower Extremity, Upper Extremity Method of Injury: Fall Modifying Factors: Movement; No Pain Medication Loss of Consciousness: No Loss of Consciousness Associated Symptoms (Fall): Denies Symptoms; No Abdominal Pain, No Chest Pain, No Confusion, No Dizziness; Headache; No Lightheadedness, No Nausea/Vomiting, No Shortness of Air (ALPESH GONZALEZ) Allergies and Home Medications Allergies Coded Allergies: No Known Drug Allergies (Unverified , 08/15/12) Patient Home Medication List Albuterol Sulfate (Proventil Hfa) 6.7 Gm Hfa.aer.ad, 2 PUFF IH Q4H PRN for SHORTNESS OF BREATH, (Reported) Entered as Reported by: WING LIGHT on 04/23/15 1151 Albuterol Sulfate (Proair Hfa) 1 Puff Puff, 2 PUFF IH Q4H Prescribed by: CASSIA ORANTES on 06/07/202347 Atorvastatin Calcium (Atorvastatin Calcium) 40 Mg Tablet, 40 MG PO HS, (Reported) Entered as Reported by: DEVORAH RAZA on 01/10/182324 Cyclobenzaprine HCl (Cyclobenzaprine HCl) 10 Mg Tablet, 10 MG PO Q8H PRN for SPASMS Prescribed by: BASIL CASAREZ on 03/30/212005 Diclofenac Sodium (Diclofenac Sodium) 75 Mg Tablet.dr, 75 MG PO BID Prescribed by: Carson Proctor on 12/25/212015 Divalproex Sodium (Divalproex Sodium ER) 500 Mg Tab.er.24h, 1,000 MG PO HS, (Reported) Entered as Reported by: DEVORAH RAZA on 01/10/182324 Divalproex Sodium (Divalproex Sodium ER) 250 Mg Tab.er.24h, 250 MG PO DAILY, (Reported) Entered as Reported by: DEVORAH RAZA on 01/10/182324 Docusate Sodium (Docusate Sodium) 100 Mg Capsule, 100 MG PO BID PRN for CON STIPATION Prescribed by: VENKAT LOOMIS on 04/29/15 0834 Dulaglutide (Trulicity) 3 Mg/0.5 Ml Pen.injctr, (Reported) Entered as Reported by: PO WELSH on 03/30/211925 Haloperidol (Haloperidol) 10 Mg Tablet, 10 MG PO HS, (Reported) Entered as Reported by: DEVORAH RAZA on 01/10/182324 Haloperidol (Haloperidol) 5 Mg Tablet, 5 MG PO DAILY, (Reported) Entered as Reported by: DEVORAH RAZA on 01/10/182324 Hydroxyzine HCl (Hydroxyzine HCl) 25 Mg Tablet, 25-50 MG PO DAILY, (Reported) Entered as Reported by: DEVORAH RAZA on 01/10/182324 Hydroxyzine HCl (Hydroxyzine HCl) 50 Mg Tablet, (Reported) Entered as Reported by: PO WELSH on 03/30/211925 Ibuprofen (Ibuprofen) 600 Mg Tablet, 600 MG PO TID PRN for PAIN, (Reported) Entered as Reported by: DEVORAH RAZA on 11/13/14 1129 Insulin Aspart (Novolog Flexpen) 300 Units/3 Ml Solution, 10 UNITS SQ AC Prescribed by: CHIN RUSH on 01/11/18 1015 Insulin Detemir (Levemir Flextouch) 100 Unit/1 Ml Insuln.pen, 40 UNIT SQ HS Prescribed by: CHIN RUSH on 01/11/18 1015 Levothyroxine Sodium (Levothyroxine Sodium) 75 Mcg Tablet, 75 MCG PO HS, (Reported) Entered as Reported by: WING LIGHT on 04/23/15 1151 Meloxicam (Meloxicam) 15 Mg Tablet, 15 MG PO DAILY Prescribed by: LOBO MONTIEL on 11/28/21 220 Metformin HCl (Metformin HCl ER) 500 Mg Tab.er.24, 500 MG PO BID, (Reported) Entered as Reported by: DEVORAH RAZA on 01/10/182324 Methocarbamol (Methocarbamol) 750 Mg Tablet, 750 MG PO Q6-8HR Prescribed by: CONCETTA LOVING on 07/27/21 115 Naproxen (Naprosyn) 500 Mg Tablet, 500 MG PO BID Prescribed by: TRICE GALO on 08/13/181847 Naproxen (Naprosyn) 500 Mg Tablet, 500 MG PO BID PRN for PAIN-MODERATE (5-7) Prescribed by: CONCETTA LOVING on 07/27/21 115 Naproxen (Naproxen) 500 Mg Tablet, 500 MG PO Q12H Prescribed by: LOBO MONTEIL on 02/04/22 2108 [place], Insulin Disposable (Advocate Pen [place]) 1 Each Dis.needle, EACH ACHS, (DME) Prescribed by: CHIN RUSH on 01/11/18 1015 Omeprazole (Omeprazole) 20 Mg Capsule.dr, 20 MG PO BID Prescribed by: TRICE GALO on 11/30/21 213 Paliperidone (Paliperidone ER) 9 Mg Tab.er.24, 9 MG PO DAILY, (Reported) Entered as Reported by: DEVORAH RAZA on 01/10/182324 Prednisone (Prednisone) 20 Mg Tab, 40 MG PO DAILY Prescribed by: TRICE GALO on 08/13/181847 Prednisone (Prednisone) 20 Mg Tab, 40 MG PO DAILY Prescribed by: BASIL CASAERZ on 03/30/212005 Ranitidine HCl (Ranitidine HCl) 150 Mg Capsule, 150 MG PO BID, (Reported) Entered as Reported by: DEVORAH RAZA on 01/10/18 232 Rosuvastatin Calcium (Rosuvastatin Calcium) 40 Mg Tablet, (Reported) Entered as Reported by: PO WELSH on 03/30/21 192 Sucralfate (Carafate) 1 Gram Tablet, 1 GM PO QIDACHS Prescribed by: TRICE GALO on 11/30/21 213 Terconazole (Terconazole) 45 Gm Cream.appl, 1 UNIT TOP BID Prescribed by: CHIN RUSH on 01/11/18 1015 Tramadol HCl (Tramadol HCl) 50 Mg Tablet, 50 MG PO Q6H PRN for PAIN Prescribed by: CASSIA ORANTES on 06/02/21 151 Tramadol HCl (Ultram) 50 Mg Tablet, 50 MG PO Q6H PRN for PAIN-SEVERE (8-10) Prescribed by: CONCETTA LOVING on 07/02/21 210 Tramadol HCl (Tramadol HCl) 50 Mg Tablet, 50 MG PO Q6H PRN for PAIN Prescribed by: BASIL CASAREZ on 07/03/21 1138 Tramadol HCl (Tramadol HCl) 50 Mg Tablet, 50 MG PO Q4H PRN for PAIN-MODERATE (5- 7) Prescribed by: LOBO MONTIEL on 11/28/21 2210 Trazodone HCl (Trazodone HCl) 150 Mg Tablet, 150 MG PO HS, (Reported) Entered as Reported by: DEVORAH RAZA on 01/10/182324 Triamcinolone Acet (Triamcinolone Acetonide 0.025%) 15 Gm Cr, 1 UNIT TOP BID Prescribed by: CHIN RUSH on 01/11/18 1015 Review of Systems Review of Systems Constitutional: no symptoms reported Eyes: No Symptoms Reported Ears: No Symptoms Reported Nose: No Symptoms Reported Mouth: No Symptoms Reported Throat: No Symptoms to Report Respiratory: no symptoms reported Cardiovascular: No Symptoms Reported Gastrointestinal: no symptoms reported Genitourinary: no symptoms reported : No (patient has had hysterectomy) Musculoskeletal: other (right elbow, hip, and ankle pain) Skin: no symptoms reported; No change in color, No rash Psychiatric/Neurological: Headache (ALPESH GONZALEZ) All Other Systems Reviewed Negative Unless Noted: Yes (ALPESH GONZALEZ) Past Xsvcfci-Eifhft-Cstozm Hx Patient Social History Tobacco Use?: Yes Tobacco type used: Cigarettes Smoking Status: Current Everyday Smoker Use of E-Cig and/or Vaping dev: No Substance use?: No Alcohol Use?: No Pt feels they are or have been: No (ALPESH GONZALEZ) Immunizations Up To Date Tetanus Booster (TDap): Unknown PED Vaccines UTD: Yes Influenza Vaccine Up-to-Date: No; Not Current First/Initial COVID19 Vaccinat: 01/06 Second COVID19 Vaccination [place]: 02/03/21 Third COVID19 Vaccination Date: 07/10 COVID19 Vaccine Community Dietitian: savita (ALPESH GONZALEZ) Seasonal Allergies Seasonal Allergies: No (ALPESH GONZALEZ) Past Medical History Surgery/Hospitalization HX: THRYOID,HIGH CHOLESTEROL, BULDGING CERVICAL DISC,MULTIPLE PSYCH DX, TUBAL, HYSTORECTOMY, asthma, anxiety/depression, ptsd, schizophrenia, htn, DM 2 Surgeries: Yes Bladder Surgery, Hysterectomy Respiratory: Yes Asthma Cardiac: Yes High Cholesterol Neurological: No Reproductive Disorders: Yes (CPP,SUDHEER III) Female Reproductive Disorders: 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 OCCASIONAL DIARRHEA) Gastroesophageal Reflux Musculoskeletal: Yes Arthritis, Chronic Back Pain Endocrine: Yes (NEW DX OF DIABETES 01/09/18) Diabetes, Non-Insulin dep HEENT: No Cancer: No Psychosocial: Yes Sleep Difficulties, Anxiety, PTSD, Personality Disorder, Schizophrenia, Depression Integumentary: No Blood Disorders: No Adverse Reaction/Blood Tranf: No (ALPESH GONZALEZ) Family Medical History Alcoholism 19 FATHER Thyroid disease 19 MOTHER No Pertinent Family Hx (ALPESH GONZALEZ) Physical Exam Vital Signs Vital Signs - First Documented 03/27/22 21:15 Temp 36.2 Pulse 102 Resp 18 B/P (MAP) 140/86 (104) Pulse Ox 96 O2 Delivery Room Air (NAZ LLANOS MD) Height, Weight, BMI Height: 5'2.00" Weight: 260lbs. 5.0oz. 117.782159iu; 34.00 BMI Method:Stated General Appearance: No Apparent Distress, WD/WN Head: No Evidence of Injury Ears, Nose, Throat: No Evidence of ENT Injury Neck: Full Range of Motion Cardiovascular: Regular Rate, Rhythm, No Murmur Respiratory: Lungs Clear, Normal Breath Sounds, No Accessory Muscle Use, No Respiratory Distress Gastrointestinal: Normal Bowel Sounds Extremity: Normal Range of Motion, Other Neurologic/Psychiatric: Alert, Oriented x3 Skin: Normal Color Lymphatic: No Adenopathy Extremity exam: Right upper extremity: -Sensation intact C6-C8 -ROM intact: shoulder, elbow, and wrist -Muscle strength 5/5 bilaterally -Tenderness of right biceps with palpation -No point tenderness of the right elbow epicondyles, mild tenderness of the olecranon -No edema or erythema of right elbow, small 1x1cm bruise near olecranon Right lower extremity exam: -Sensation intact L4-S1 bilaterally -ROM intact: hip, knee, and ankle -Muscle strength 5/5 -Tenderness with palpation over right greater trochanter; no ecchymosis, edema, or erythema of right hip -Tenderness with palpation of lateral and medial malleoli of right ankle, more prominent on medial malleolus. Tenderness of 5th metatarsal -Edema of right ankle, no erythema or ecchymosis (ALPESH GONZALEZ) Progress/Results/Core Measures Results/Orders My Orders Orders - NAZ LLANOS MD Foot, Right, 3 View (03/27/22 21:43) Ankle, Right, 3 Views (03/27/22 21:43) Ketorolac Injection (Toradol Injection) (03/27/22 22:45) Crutches (03/27/22 22:40) (NAZ LLANOS MD) Medications Given in ED Current Medications Medications Dose Ordered Sig/Kumar Route Start Time Stop Time Status Last Admin Dose Admin Ketorolac Tromethamine 30 mg ONCE ONCE IM 03/27/22 22:45 03/27/22 22:46 DC 03/27/22 23:05 30 MG (NAZ LLANOS MD) Vital Signs/I&O 03/27/22 21:15 Temp 36.2 Pulse 102 Resp 18 B/P (MAP) 140/86 (104) Pulse Ox 96 O2 Delivery Room Air (NAZ LLANOS MD) Blood Pressure Mean: 104 Departure Impression Primary Impression: Avulsion fracture of right ankle Qualified Codes: S82.891A - Other fracture of right lower leg, initial encounter for closed fracture Additional Impression: Fall on same level as cause of accidental injury Disposition: 01 HOME, SELF-CARE Condition: Improved Departure-Patient Inst. Decision time for Depature: 23:27 (NAZ LLANOS MD) Referrals: HAZEL DOOLEY NP (PCP) Primary Care Physician GEOVANNA LAIRD MD, TERRY D MD ZAFUTA, MICHAEL P MD Patient Instructions: Ankle Fracture, Avulsion Fracture Add. Discharge Instructions: Use compression with an Jamil bandage and elevation to help reduce swelling. You may also ice in 20-minute intervals. Wear the boot as much as possible, especially when you are up and about. You may partially weight-bear by resting your foot on the floor, but it would be best to not fully bear weight to walk until you have follow-up with an orthopedic provider. Do not attempt to walk or bear any weight without the boot. For mild pain you may take Tylenol (acetaminophen) up to 1000 mg every 6 hours a s needed. For more severe pain you may take hydrocodone as prescribed. Do not drive, operate machinery, or make important decisions while on hydrocodone as it may cause drowsiness. Hydrocodone may also cause constipation, so you may wish to use a stool softener such as Colace while you are on it. Some orthopedic research suggests NSAID medications like ibuprofen and naproxen will delay bone healing. Avoid these medications unless otherwise instructed by your orthopedic provider. Return to care if you have worsening symptoms that require prompt attention. All discharge instructions reviewed with patient and/or family. Voiced u nderstanding. Scripts Hydrocodone/Acetaminophen (Hydrocodone-Acetamin 5-325 mg) 5 Mg-325 Mg Tablet 1 TAB PO Q4H PRN for PAIN-MODERATE (5-7), #15 TAB Prov: NAZ LLANOS MD 03/27/22 ALPESH GONZALEZ Mar 27, 2022 21:44 NAZ LLANOS MD Mar 27, 2022 23:22
[2022-03-27] MEDS ORDERED: KETOROLAC 30 MG/ML VIAL IM ONE (22:45)
--- NOTE | 2022-03-27 22:57 | Diagnostic Imaging Report ---
HISTORY: Right ankle pain. TECHNIQUE: 3 views of the right ankle. COMPARISON: None. FINDINGS: There is a calcification at the medial aspect of the medial malleolus. This is favored to be chronic although it does appear to be new since January 2022. Ankle mortise appears symmetric and the talar dome is intact. No other finding of acute fracture is seen in the right ankle. There is a large plantar calcaneal enthesophyte. IMPRESSION: Calcification medial to the medial malleolus is favored to be chronic, likely from remote trauma. Recommend correlation with point tenderness to exclude acute avulsion fracture. Dictated by: Dictated on workstation # [id number]
--- NOTE | 2022-03-27 22:58 | Diagnostic Imaging Report ---
HISTORY: Right foot pain. TECHNIQUE: 3 views of the right foot. COMPARISON: None. FINDINGS: No acute fracture or dislocation is seen in the right foot. Alignment appears normal. Joint spaces are preserved. There is a large plantar calcaneal enthesophyte. IMPRESSION: No acute osseous abnormality is seen in the right foot. Dictated by: Dictated on workstation # [id number]
[2022-03-27] MEDS ORDERED: ACHD5005 PO (23:31)
[2022-03-27 23:37] VITALS: BP 140/86
== END 2022-03-27 23:39 | disposition home or self-care (01) ==
LOC: EDUNIT# 20:55 → ER 20:56
DX: S82.891A Other fracture of right lower leg, initial encounter for closed fracture (principal); M79.671 Pain in right foot; M25.521 Pain in right elbow; F17.210 Nicotine dependence, cigarettes, uncomplicated; W01.0XXA Fall on same level from slipping, tripping and stumbling without subsequent striking against object, initial encounter
CPT/HCPCS: 73610; 73630; 99283

== ENCOUNTER → 2022-04-05 | Outpatient (CLI) | payer MEDICAID ==
[~2022-04-05] MED LIST changes: +ACHD5005 PO
== END ==
LOC: ORTHO 13:12
PROVIDERS: ATTEND Orthopaedic Surgery
DX: S93.401A Sprain of unspecified ligament of right ankle, initial encounter (principal); X58.XXXA Exposure to other specified factors, initial encounter
CPT/HCPCS: 99203

== ENCOUNTER 2022-04-22 17:20 | Emergency (ER) | payer MEDICAID ==
[~2022-04-22] VITALS: Ht 157 cm; Wt 86.9 kg
[~2022-04-22 17:20] MED LIST changes: +ALBU8.5H6 IH
--- NOTE | 2022-04-22 17:50 | ED General ---
General Chief Complaint: General Problems/Pain Stated Complaint: R ANKLE PAIN,SWELLING,PREV. FELL @HOME Nursing Triage Note: PT IS OUT OF HYDRODONE AND IT IS THE ONLY THING THAT WORKS ON HER ANKLE AVULSION FX X2 WEEKS AGO ACCORDING TO HER. History of Present Illness Date Seen by Provider: Apr 22, 2022 Time Seen by Provider: 17:47 Initial Comments Patient reports that she had an avulsion fracture to right ankle recently. Has followed up with Orthopedics. Is requesting more hydrocodone because she ran out of it today and the over the counter medications are not helping her pain. Is walking on ankle without issue. Allergies and Home Medications Allergies Coded Allergies: No Known Drug Allergies (Unverified , 08/15/12) Patient Home Medication List Home Medication List Reviewed: Yes Albuterol Sulfate (Proventil Hfa) 6.7 Gm Hfa.aer.ad, 2 PUFF IH Q4H PRN for SHORTNESS OF BREATH, (Reported) Entered as Reported by: WING LIGHT on 04/23/15 1151 Albuterol Sulfate (Ventolin Hfa) 1 Puff Puff, 2 PUFF IH Q4H Prescribed by: CASSIA ORANTES on 06/07/208 Atorvastatin Calcium (Atorvastatin Calcium) 40 Mg Tablet, 40 MG PO HS, (Reported) Entered as Reported by: DEVORAH RAZA on 01/10/182324 Cyclobenzaprine HCl (Cyclobenzaprine HCl) 10 Mg Tablet, 10 MG PO Q8H PRN for SPASMS Prescribed by: BASIL CASAREZ on 03/30/212005 Diclofenac Sodium (Diclofenac Sodium) 75 Mg Tablet.dr, 75 MG PO BID Prescribed by: Carson Proctor on 12/25/212015 Divalproex Sodium (Divalproex Sodium ER) 500 Mg Tab.er.24h, 1,000 MG PO HS, (Reported) Entered as Reported by: DEVORAH RAZA on 01/10/18 232 Divalproex Sodium (Divalproex Sodium ER) 250 Mg Tab.er.24h, 250 MG PO DAILY, (Reported) Entered as Reported by: DEVORAH RAZA on 01/10/182324 Docusate Sodium (Docusate Sodium) 100 Mg Capsule, 100 MG PO BID PRN for CONSTIPATION Prescribed by: VENKAT LOOMIS on 04/29/15 0834 Dulaglutide (Trulicity) 3 Mg/0.5 Ml Pen.injctr, (Reported) Entered as Reported by: PO WELSH on 03/30/211925 Haloperidol (Haloperidol) 10 Mg Tablet, 10 MG PO HS, (Reported) Entered as Reported by: DEVORAH RAZA on 01/10/182324 Haloperidol (Haloperidol) 5 Mg Tablet, 5 MG PO DAILY, (Reported) Entered as Reported by: DEVORAH RAZA on 01/10/18 232 Hydrocodone/Acetaminophen (Hydrocodone-Acetamin 5-325 mg) 5 Mg-325 Mg Tablet, 1 TAB PO Q4H PRN for PAIN-MODERATE (5-7) Prescribed by: NAZ SAUNDERS on 03/27/22 233 Hydroxyzine HCl (Hydroxyzine HCl) 25 Mg Tablet, 25-50 MG PO DAILY, (Reported) Entered as Reported by: DEVORAH RAZA on 01/10/182324 Hydroxyzine HCl (Hydroxyzine HCl) 50 Mg Tablet, (Reported) Entered as Reported by: PO WELSH on 03/30/211925 Ibuprofen (Ibuprofen) 600 Mg Tablet, 600 MG PO TID PRN for PAIN, (Reported) Entered as Reported by: DEVORAH RAZA on 11/13/14 1129 Insulin Aspart (Novolog Flexpen) 300 Units/3 Ml Solution, 10 UNITS SQ AC Prescribed by: CHIN RUSH on 01/11/18 1015 Insulin Detemir (Levemir Flextouch) 100 Unit/1 Ml Insuln.pen, 40 UNIT SQ HS Prescribed by: CHIN RUSH on 01/11/18 1015 Levothyroxine Sodium (Levothyroxine Sodium) 75 Mcg Tablet, 75 MCG PO HS, (Reported) Entered as Reported by: WING LIGHT on 04/23/15 1151 Meloxicam (Meloxicam) 15 Mg Tablet, 15 MG PO DAILY Prescribed by: LOBO MONTIEL on 11/28/212208 Metformin HCl (Metformin HCl ER) 500 Mg Tab.er.24, 500 MG PO BID, (Reported) Entered as Reported by: DEVORAH RAZA on 01/10/18 232 Methocarbamol (Methocarbamol) 750 Mg Tablet, 750 MG PO Q6-8HR Prescribed by: CONCETTA LOVING on 07/27/211156 Naproxen (Naprosyn) 500 Mg Tablet, 500 MG PO BID Prescribed by: TRICE GALO on 08/13/181847 Naproxen (Naprosyn) 500 Mg Tablet, 500 MG PO BID PRN for PAIN-MODERATE (5-7) Prescribed by: CONCETTA LOVING on 07/27/21 115 Naproxen (Naproxen) 500 Mg Tablet, 500 MG PO Q12H Prescribed by: LOBO MONTIEL on 02/04/222107 [place], Insulin Disposable (Advocate Pen [place]) 1 Each Dis.needle, EACH MC ACHS, (DME) Prescribed by: CHIN RUSH on 01/11/181014 Omeprazole (Omeprazole) 20 Mg Capsule.dr, 20 MG PO BID Prescribed by: TRICE GALO on 11/30/212138 Paliperidone (Paliperidone ER) 9 Mg Tab.er.24, 9 MG PO DAILY, (Reported) Entered as Reported by: DEVORAH RAZA on 01/10/182324 Prednisone (Prednisone) 20 Mg Tab, 40 MG PO DAILY Prescribed by: TRICE GALO on 08/13/181847 Prednisone (Prednisone) 20 Mg Tab, 40 MG PO DAILY Prescribed by: BASIL CASAREZ on 03/30/212005 Ranitidine HCl (Ranitidine HCl) 150 Mg Capsule, 150 MG PO BID, (Reported) Entered as Reported by: DEVORAH RAZA on 01/10/182324 Rosuvastatin Calcium (Rosuvastatin Calcium) 40 Mg Tablet, (Reported) Entered as Reported by: PO WELSH on 03/30/211925 Sucralfate (Carafate) 1 Gram Tablet, 1 GM PO QIDACHS Prescribed by: TRICE GALO on 11/30/212138 Terconazole (Terconazole) 45 Gm Cream.appl, 1 UNIT TOP BID Prescribed by: CHIN RUSH on 01/11/18 101 Tramadol HCl (Tramadol HCl) 50 Mg Tablet, 50 MG PO Q6H PRN for PAIN Prescribed by: CASSIA ORANTES on 06/02/21 1519 Tramadol HCl (Ultram) 50 Mg Tablet, 50 MG PO Q6H PRN for PAIN-SEVERE (8-10) Prescribed by: CONCETTA LOVING on 07/02/21 210 Tramadol HCl (Tramadol HCl) 50 Mg Tablet, 50 MG PO Q6H PRN for PAIN Prescribed by: BASIL CASAREZ on 07/03/21 1138 Tramadol HCl (Tramadol HCl) 50 Mg Tablet, 50 MG PO Q4H PRN for PAIN-MODERATE (5- 7) Prescribed by: LOBO MONTIEL on 11/28/21 2210 Trazodone HCl (Trazodone HCl) 150 Mg Tablet, 150 MG PO HS, (Reported) Entered as Reported by: DEVORAH RAZA on 01/10/18 2325 Triamcinolone Acet (Triamcinolone Acetonide 0.025%) 15 Gm Cr, 1 UNIT TOP BID Prescribed by: CHIN RUSH on 01/11/18 1015 Review of Systems Review of Systems Constitutional: no symptoms reported Musculoskeletal: joint pain (right ankle), joint swelling (right ankle) Skin: no symptoms reported Past Unadopn-Fzspny-Tefpzo Hx Patient Social History Tobacco Use?: Yes Tobacco type used: Cigarettes Smoking Status: Current Everyday Smoker Substance use?: No Alcohol Use?: No Immunizations Up To Date Tetanus Booster (TDap): Unknown PED Vaccines UTD: Yes First/Initial COVID19 Vaccinat: UNKNOWN Second COVID19 Vaccination [place]: 02/03/21 Third COVID19 Vaccination Date: 07/10 COVID19 Vaccine 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 OCCASIONAL DIARRHEA) Gastroesophageal Reflux Musculoskeletal: Yes Arthritis, Chronic Back Pain Endocrine: Yes (NEW DX OF DIABETES 01/09/18) Diabetes, Non-Insulin dep HEENT: No Cancer: No Psychosocial: Yes Sleep Difficulties, Anxiety, PTSD, Personality Disorder, Schizophrenia, Depression Integumentary: No Blood Disorders: No Adverse Reaction/Blood Tranf: No Family Medical History Reviewed Nursing Family Hx Alcoholism 19 FATHER Thyroid disease 19 MOTHER No Pertinent Family Hx Physical Exam Vital Signs Vital Signs - First Documented 04/22/22 17:32 Temp 36.3 Pulse 101 Resp 16 B/P (MAP) 149/81 (103) Pulse Ox 97 O2 Delivery Room Air Capillary Refill : Less Than 3 Seconds Height, Weight, BMI Height: 5'2.00" Weight: 260lbs. 5.0oz. 117.747555wj; 35.00 BMI Method:Stated General Appearance: No Apparent Distress, WD/WN Extremity: Swelling (mild right lateral ankle swelling) Neurologic/Psychiatric: Alert, Oriented x3 Skin: Normal Color, Warm/Dry Progress/Results/Core Measures Suspected Sepsis SIRS Temperature: Pulse: 101 Respiratory Rate: 16 Blood Pressure 149 /81 Mean: 103 Results/Orders Vital Signs/I&O 04/22/22 04/22/22 17:32 17:55 Temp 36.3 Pulse 101 84 Resp 16 16 B/P (MAP) 149/81 (103) 137/84 Pulse Ox 97 98 O2 Delivery Room Air Room Air Capillary Refill : Less Than 3 Seconds Blood Pressure Mean: 103 Progress Note : Progress Note I offered patient IM toradol but she refused. I explained to her that she would not receive more narcotics from the ER. She has already been seen by orthopedics in addition. Reasons to return to the ER were discussed with patient. Departure Impression Primary Impression: Ankle sprain Qualified Codes: S93.402A - Sprain of unspecified ligament of left ankle, initial encounter Disposition: 01 HOME, SELF-CARE Condition: Stable Departure-Patient Inst. Decision time for Depature: 17:51 Referrals: NO,LOCAL PHYSICIAN (PCP) Primary Care Physician HAZEL DOOLEY NP (Family) Primary Care Physician Add. Discharge Instructions: 1. Follow up with Orthopedics for further evaluation and pain medications. 2. Ice and elevate. 3. Limit weight bearing . 4. Return here if worse or concerns. All discharge instructions reviewed with patient and/or family. Voiced understanding. OLE ROBERTS APRN Apr 22, 2022 17:50
[2022-04-22 17:55] VITALS: BP 137/84
== END 2022-04-22 17:56 | disposition home or self-care (01) ==
LOC: EDUNIT# 17:20 → ER 17:23
DX: S93.401A Sprain of unspecified ligament of right ankle, initial encounter (principal); F17.210 Nicotine dependence, cigarettes, uncomplicated; Z28.311 Partially vaccinated for COVID-19; X58.XXXA Exposure to other specified factors, initial encounter
CPT/HCPCS: 99281

== ENCOUNTER → 2022-04-26 | Outpatient (CLI) | payer MEDICAID | LOC: ORTHO 16:26 | PROVIDERS: ATTEND Orthopaedic Surgery | DX: S93.401D Sprain of unspecified ligament of right ankle, subsequent encounter (principal); X58.XXXD Exposure to other specified factors, subsequent encounter | CPT/HCPCS: 99213 ==

== ENCOUNTER 2022-05-16 16:39 | Emergency (ER) | payer MEDICAID ==
[~2022-05-16] VITALS: Ht 157.5 cm; Wt 86.2 kg
--- NOTE | 2022-05-16 17:35 | ED Lower Extremity ---
General Chief Complaint: Lower Extremity Stated Complaint: TORN LT ACL,PAIN Nursing Triage Note: PT AMB TO TRIAGE WITH COMPLAINT OF LEFT KNEE PAIN. PT TORE PCL BACK IN JANUARY. STATES HER PAIN HAS WORSENED TODAY. WAS INSTRUCTED BY PCP THAT IF PAIN WORSENED SHE NEEDED TO COME TO ER. DENIES INJURY. Source: patient Exam Limitations: no limitations History of Present Illness Initial Comments PCL injury Allergies and Home Medications Allergies Coded Allergies: No Known Drug Allergies (Unverified , 08/15/12) Patient Home Medication List Home Medication List Reviewed: Yes Albuterol Sulfate (Proventil Hfa) 6.7 Gm Hfa.aer.ad, 2 PUFF IH Q4H PRN for SHORTNESS OF BREATH, (Reported) Entered as Reported by: WING LIGHT on 04/23/15 115 Albuterol Sulfate (Ventolin Hfa) 1 Puff Puff, 2 PUFF IH Q4H Prescribed by: CASSIA ORANTES on 06/07/20 234 Atorvastatin Calcium (Atorvastatin Calcium) 40 Mg Tablet, 40 MG PO HS, (Reported) Entered as Reported by: DEVORAH RAZA on 01/10/182324 Cyclobenzaprine HCl (Cyclobenzaprine HCl) 10 Mg Tablet, 10 MG PO Q8H PRN for SPASMS Prescribed by: BASIL CASAREZ on 03/30/212005 Diclofenac Sodium (Diclofenac Sodium) 75 Mg Tablet.dr, 75 MG PO BID Prescribed by: Carson Proctor on 12/25/212015 Divalproex Sodium (Divalproex Sodium ER) 500 Mg Tab.er.24h, 1,000 MG PO HS, (Reported) Entered as Reported by: DEVORAH RAZA on 01/10/182324 Divalproex Sodium (Divalproex Sodium ER) 250 Mg Tab.er.24h, 250 MG PO DAILY, (Reported) Entered as Reported by: DEVORAH RAZA on 01/10/182324 Docusate Sodium (Docusate Sodium) 100 Mg Capsule, 100 MG PO BID PRN for CONSTIPATION Prescribed by: VENKAT LOOMIS on 04/29/15 0834 Dulaglutide (Trulicity) 3 Mg/0.5 Ml Pen.injctr, (Reported) Entered as Reported by: PO WELSH on 03/30/21 192 Haloperidol (Haloperidol) 10 Mg Tablet, 10 MG PO HS, (Reported) Entered as Reported by: DEVORAH RAZA on 01/10/18 232 Haloperidol (Haloperidol) 5 Mg Tablet, 5 MG PO DAILY, (Reported) Entered as Reported by: DEVORAH RAZA on 01/10/18 2325 Hydrocodone/Acetaminophen (Hydrocodone-Acetamin 5-325 mg) 5 Mg-325 Mg Tablet, 1 TAB PO Q4H PRN for PAIN-MODERATE (5-7) Prescribed by: NAZ SAUNDERS on 03/27/22 2331 Hydroxyzine HCl (Hydroxyzine HCl) 25 Mg Tablet, 25-50 MG PO DAILY, (Reported) Entered as Reported by: DEVORAH RAZA on 01/10/18 2325 Hydroxyzine HCl (Hydroxyzine HCl) 50 Mg Tablet, (Reported) Entered as Reported by: PO WELSH on 03/30/21 1926 Ibuprofen (Ibuprofen) 600 Mg Tablet, 600 MG PO TID PRN for PAIN, (Reported) Entered as Reported by: DEVORAH RAZA on 11/13/14 1129 Insulin Aspart (Novolog Flexpen) 300 Units/3 Ml Solution, 10 UNITS SQ AC Prescribed by: CHIN RUSH on 01/11/18 1015 Insulin Detemir (Levemir Flextouch) 100 Unit/1 Ml Insuln.pen, 40 UNIT SQ HS Prescribed by: CHIN RUSH on 01/11/18 1015 Levothyroxine Sodium (Levothyroxine Sodium) 75 Mcg Tablet, 75 MCG PO HS, (Reported) Entered as Reported by: WING LIGHT on 04/23/15 1151 Meloxicam (Meloxicam) 15 Mg Tablet, 15 MG PO DAILY Prescribed by: LOBO MONTIEL on 11/28/21 2209 Metformin HCl (Metformin HCl ER) 500 Mg Tab.er.24, 500 MG PO BID, (Reported) Entered as Reported by: DEVORAH RAZA on 01/10/18 2325 Methocarbamol (Methocarbamol) 750 Mg Tablet, 750 MG PO Q6-8HR Prescribed by: CONCETTA LOVING on 07/27/21 1157 Naproxen (Naprosyn) 500 Mg Tablet, 500 MG PO BID Prescribed by: TRICE GALO on 2/25/19 1848 Naproxen (Naprosyn) 500 Mg Tablet, 500 MG PO BID PRN for PAIN-MODERATE (5-7) Prescribed by: CONCETTA LOVING on 07/27/21 115 Naproxen (Naproxen) 500 Mg Tablet, 500 MG PO Q12H Prescribed by: LOBO MONTIEL on 02/04/222107 [place], Insulin Disposable (Advocate Pen [place]) 1 Each Dis.needle, EACH ACHS, (DME) Prescribed by: CHIN RUSH on 01/11/18 101 Omeprazole (Omeprazole) 20 Mg Capsule.dr, 20 MG PO BID Prescribed by: TRICE GALO on 11/30/212138 Paliperidone (Paliperidone ER) 9 Mg Tab.er.24, 9 MG PO DAILY, (Reported) Entered as Reported by: DEVORAH RAZA on 01/10/182324 Prednisone (Prednisone) 20 Mg Tab, 40 MG PO DAILY Prescribed by: TRICE GALO on 08/13/181847 Prednisone (Prednisone) 20 Mg Tab, 40 MG PO DAILY Prescribed by: BASIL CASAREZ on 03/30/212005 Ranitidine HCl (Ranitidine HCl) 150 Mg Capsule, 150 MG PO BID, (Reported) Entered as Reported by: DEVORAH RAZA on 01/10/182324 Rosuvastatin Calcium (Rosuvastatin Calcium) 40 Mg Tablet, (Reported) Entered as Reported by: PO WELSH on 03/30/211925 Sucralfate (Carafate) 1 Gram Tablet, 1 GM PO QIDACHS Prescribed by: TRICE GALO on 11/30/212138 Terconazole (Terconazole) 45 Gm Cream.appl, 1 UNIT TOP BID Prescribed by: CHIN RUSH on 01/11/18 101 Tramadol HCl (Tramadol HCl) 50 Mg Tablet, 50 MG PO Q6H PRN for PAIN Prescribed by: CASSIA ORANTES on 06/02/21 151 Tramadol HCl (Ultram) 50 Mg Tablet, 50 MG PO Q6H PRN for PAIN-SEVERE (8-10) Prescribed by: CONCETTA LOVING on 07/02/212101 Tramadol HCl (Tramadol HCl) 50 Mg Tablet, 50 MG PO Q6H PRN for PAIN Prescribed by: BASIL CASAREZ on 07/03/21 1138 Tramadol HCl (Tramadol HCl) 50 Mg Tablet, 50 MG PO Q4H PRN for PAIN-MODERATE (5- 7) Prescribed by: LOBO MONTIEL on 11/28/21 2210 Trazodone HCl (Trazodone HCl) 150 Mg Tablet, 150 MG PO HS, (Reported) Entered as Reported by: DEVORAH RAZA on 01/10/18 2325 Triamcinolone Acet (Triamcinolone Acetonide 0.025%) 15 Gm Cr, 1 UNIT TOP BID Prescribed by: CHIN RUSH on 01/11/18 1015 Past Xjwemco-Pggjic-Qtombo Hx Patient Social History Tobacco Use?: Yes Tobacco type used: Cigarettes Smoking Status: Current Everyday Smoker Use of E-Cig and/or Vaping dev: No Substance use?: No Alcohol Use?: No Pt feels they are or have been: No Immunizations Up To Date Tetanus Booster (TDap): Unknown PED Vaccines UTD: Yes First/Initial COVID19 Vaccinat: UNKNOWN Second COVID19 Vaccination Corbin: UNKNOWN Third COVID19 Vaccination Date: UNKNOWN Seasonal Allergies Seasonal Allergies: No Past Medical History Surgery/Hospitalization HX: THRYOID,HIGH CHOLESTEROL, BULDGING CERVICAL DISC,MULTIPLE PSYCH DX, TUBAL, HYSTORECTOMY, asthma, anxiety/depression, ptsd, schizophrenia, htn, DM 2 Surgeries: Yes Bladder Surgery, Hysterectomy Respiratory: Yes Asthma Cardiac: Yes High Cholesterol Neurological: No Reproductive Disorders: Yes (CPP,SUDHEER III) Female Reproductive Disorders: Endometriosis 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 OCCASIONAL DIARRHEA) Gastroesophageal Reflux Musculoskeletal: Yes Arthritis, Chronic Back Pain Endocrine: Yes (NEW DX OF DIABETES 01/09/18) Diabetes, Non-Insulin dep HEENT: No Cancer: No Psychosocial: Yes Sleep Difficulties, Anxiety, PTSD, Personality Disorder, Schizophrenia, Depression Integumentary: No Blood Disorders: No Adverse Reaction/Blood Tranf: No Family Medical History Alcoholism 19 FATHER Thyroid disease 19 MOTHER No Pertinent Family Hx Physical Exam Vital Signs Vital Signs - First Documented 05/16/22 16:46 Pulse 123 Resp 17 B/P (MAP) 144/93 (110) Pulse Ox 97 O2 Delivery Room Air Capillary Refill : Less Than 3 Seconds Height, Weight, BMI Height: 5'2.00" Weight: 260lbs. 5.0oz. 117.134058lc; 34.00 BMI Method:Stated Progress/Results/Core Measures Results/Orders Vital Signs/I&O 05/16/22 16:46 Pulse 123 Resp 17 B/P (MAP) 144/93 (110) Pulse Ox 97 O2 Delivery Room Air Blood Pressure Mean: 110 Departure Impression Primary Impression: Tear of PCL (posterior cruciate ligament) of knee Disposition: HOME, SELF-CARE Condition: Improved Departure-Patient Inst. Decision time for Depature: 17:31 Referrals: [facility] REPORTER (PCP/Family) Primary Care Physician Patient Instructions: Ligament Injuries in the Knee (DC) Add. Discharge Instructions: Plan: 1. Follow-up with your orthopedic provider as soon as possible. 2. You can take pain medication every 6 hours as needed for severe pain do not drive while taking. 3. Jamil wrap, ice 20 minutes at a time, crutches and knee brace whenever ambulating. 4. Return to ER for any new, concerning, worsening symptoms. All discharge instructions reviewed with patient and/or family. Voiced understanding. KAREEN MAYO [employer]GS[employer] MAT ASSEMBLER May 16, 2022 17:35
[2022-05-16 17:45] VITALS: BP 144/93
== END 2022-05-16 17:45 | disposition home or self-care (01) ==
LOC: EDUNIT# 16:39 → ER 16:42
DX: S83.522A Sprain of posterior cruciate ligament of left knee, initial encounter (principal); F17.210 Nicotine dependence, cigarettes, uncomplicated; Z28.310 Unvaccinated for COVID-19; X58.XXXA Exposure to other specified factors, initial encounter
CPT/HCPCS: 99283

== ENCOUNTER → 2022-05-17 | Outpatient (CLI) | payer MEDICAID | LOC: ORTHO 15:21 | PROVIDERS: ATTEND Orthopaedic Surgery | DX: S83.522D Sprain of posterior cruciate ligament of left knee, subsequent encounter (principal); X58.XXXD Exposure to other specified factors, subsequent encounter | CPT/HCPCS: 99213 ==

== ENCOUNTER → 2022-05-23 | Outpatient (CLI) | payer MEDICAID ==
--- NOTE | 2022-05-23 15:20 | Diagnostic Imaging Report ---
PROCEDURE: Pelvic comp/transvaginal sonogram. TECHNIQUE: Complete transabdominal and transvaginal pelvic ultrasound was performed. In addition, limited pelvic Doppler was performed. INDICATION: Pelvic pain. Patient has history of ovarian cysts as well as prior history of partial hysterectomy. The uterus is surgically absent. Right ovary measures 2.6 x 2.1 x 2.1 cm and left ovary measures 1.9 x 1.5 x 1.2 cm. Right ovary does contain follicles. There is blood flow to ovaries. No adnexal mass or free fluid is detected. IMPRESSION: Status post hysterectomy. The ovaries are unremarkable. Dictated by: Dictated on workstation # [id number]
== END ==
LOC: RAD 12:55
PROVIDERS: ATTEND Obstetrics & Gynecology
DX: R10.2 Pelvic and perineal pain (principal); Z90.710 Acquired absence of both cervix and uterus
CPT/HCPCS: 76830; 76856

== ENCOUNTER → 2022-06-07 | Outpatient (CLI) | payer MEDICAID | LOC: ORTHO 12:51 | PROVIDERS: ATTEND Orthopaedic Surgery | DX: S83.522D Sprain of posterior cruciate ligament of left knee, subsequent encounter (principal); I10 Essential (primary) hypertension; E66.9 Obesity, unspecified; J45.909 Unspecified asthma, uncomplicated; X58.XXXD Exposure to other specified factors, subsequent encounter | CPT/HCPCS: 99213 ==

== ENCOUNTER 2022-09-29 14:40 | Emergency (ER) | payer MEDICAID ==
[~2022-09-29] VITALS: Ht 160 cm; Wt 82.0 kg
[~2022-09-29 14:40] MED LIST changes: -INSU100I29 SQ; +INSU100I30 SQ
--- NOTE | 2022-09-29 15:24 | ED Lower Extremity ---
General Chief Complaint: Lower Extremity Stated Complaint: FELL | LFT KNEE INJ Nursing Triage Note: PT AMB TO TRIAGE, PT STATES FELL LAST NIGHT IN MOTHERS BACK YARD. PT STATES L KNEE WAS BENT BACK BEHIND HER. PT RATES PAIN9/10. PT HAS TAKEN IBUPROFEN FOR PAIN W NO RELIEF. Source: patient Exam Limitations: no limitations History of Present Illness Date Seen by Provider: Sep 29, 2022 Time Seen by Provider: 15:21 Initial Comments Patient is a 37-year-old female who presents ED left knee pain. Patient states last night she fell in a hole at her mother's backyard. She states her left lower leg hyperflexed. She felt immediate pain in the left knee. She states the left knee feels like it wants to give out. Denies of any popping or locking. History of tear in her left knee. She been taken 800 mg of ibuprofen without much improvement. Denies any swelling or bruising. She states she is has a headache and abdominal pain since a fall. She states she does not believe she hit her head. She had no loss of consciousness or on blood thinners. She states abdominal pain is intermittent but no current pain at this time. Denies fever, vomiting, visual changes, unilateral muscle weakness or sensory changes, lower extremity weakness, dysuria, lower back pain, mid upper back pain. Allergies and Home Medications Allergies Coded Allergies: No Known Drug Allergies (Unverified , 08/15/12) Patient Home Medication List Home Medication List Reviewed: Yes Albuterol Sulfate (Proventil Hfa) 6.7 Gm Hfa.aer.ad, 2 PUFF IH Q4H PRN for SHORTNESS OF BREATH, (Reported) Entered as Reported by: WING LIGHT on 04/23/15 1151 Albuterol Sulfate (Ventolin Hfa) 1 Puff Puff, 2 PUFF IH Q4H Prescribed by: CASSIA ORANTES on 06/07/20 2348 Atorvastatin Calcium (Atorvastatin Calcium) 40 Mg Tablet, 40 MG PO HS, (Reported) Entered as Reported by: DEVORAH RAZA on 01/10/18 2325 Cyclobenzaprine HCl (Cyclobenzaprine HCl) 10 Mg Tablet, 10 MG PO Q8H PRN for SPASMS Prescribed by: BASIL CASAREZ on 03/30/212005 Diclofenac Sodium (Diclofenac Sodium) 75 Mg Tablet.dr, 75 MG PO BID Prescribed by: Carson Proctor on 12/25/212015 Divalproex Sodium (Divalproex Sodium ER) 500 Mg Tab.er.24h, 1,000 MG PO HS, ( Reported) Entered as Reported by: DEVORAH RAZA on 01/10/182324 Divalproex Sodium (Divalproex Sodium ER) 250 Mg Tab.er.24h, 250 MG PO DAILY, (Reported) Entered as Reported by: DEVORAH RAZA on 01/10/182324 Docusate Sodium (Docusate Sodium) 100 Mg Capsule, 100 MG PO BID PRN for CONSTIPATION Prescribed by: VENKAT LOOMIS on 04/29/15 0834 Dulaglutide (Trulicity) 3 Mg/0.5 Ml Pen.injctr, (Reported) Entered as Reported by: PO WESLH on 03/30/211925 Haloperidol (Haloperidol) 10 Mg Tablet, 10 MG PO HS, (Reported) Entered as Reported by: DEVORAH RAZA on 01/10/182324 Haloperidol (Haloperidol) 5 Mg Tablet, 5 MG PO DAILY, (Reported) Entered as Reported by: DEVORAH RAZA on 01/10/182324 Hydrocodone/Acetaminophen (Hydrocodone-Acetamin 5-325 mg) 5 Mg-325 Mg Tablet, 1 TAB PO Q4H PRN for PAIN-MODERATE (5-7) Prescribed by: NAZ SAUNDERS on 03/27/22 2331 Hydrocodone/Acetaminophen (Hydrocodone-Acetamin 5-325 mg) 5 Mg-325 Mg Tablet, 1 TAB PO Q4H PRN for PAIN-MODERATE (5-7) Prescribed by: LOBO MONTIEL on 09/29/22 1552 Hydroxyzine HCl (Hydroxyzine HCl) 25 Mg Tablet, 25-50 MG PO DAILY, (Reported) Entered as Reported by: DEVORAH RAZA on 01/10/182324 Hydroxyzine HCl (Hydroxyzine HCl) 50 Mg Tablet, (Reported) Entered as Reported by: PO WELSH on 03/30/211925 Ibuprofen (Ibuprofen) 600 Mg Tablet, 600 MG PO TID PRN for PAIN, (Reported) Entered as Reported by: DEVORAH RAZA on 11/13/14 1129 Insulin Aspart (Novolog Flexpen) 300 Units/3 Ml Solution, 10 UNITS SQ AC Prescribed by: CHIN RUSH on 01/11/18 1015 Insulin Detemir (Levemir Flextouch) 100 Unit/1 Ml Insuln.pen, 40 UNIT SQ HS Prescribed by: CHIN RUSH on 01/11/18 1015 Levothyroxine Sodium (Levothyroxine Sodium) 75 Mcg Tablet, 75 MCG PO HS, (Reported) Entered as Reported by: WING LIGHT on 04/23/15 1151 Meloxicam (Meloxicam) 15 Mg Tablet, 15 MG PO DAILY Prescribed by: LOBO MONTIEL on 11/28/21 220 Metformin HCl (Metformin HCl ER) 500 Mg Tab.er.24, 500 MG PO BID, (Reported) Entered as Reported by: DEVORAH RAZA on 01/10/182324 Methocarbamol (Methocarbamol) 750 Mg Tablet, 750 MG PO Q6-8HR Prescribed by: CONCETTA LOVING on 07/27/21 115 Naproxen (Naprosyn) 500 Mg Tablet, 500 MG PO BID Prescribed by: TRICE GALO on 08/13/181847 Naproxen (Naprosyn) 500 Mg Tablet, 500 MG PO BID PRN for PAIN-MODERATE (5-7) Prescribed by: CONCETTA LOVING on 07/27/21 115 Naproxen (Naproxen) 500 Mg Tablet, 500 MG PO Q12H Prescribed by: LOBO MONTIEL on 02/04/22 2108 [place], Insulin Disposable (Advocate Pen [place]) 1 Each Dis.needle, EACH ACHS, (DME) Prescribed by: CHIN RUSH on 01/11/18 1015 Omeprazole (Omeprazole) 20 Mg Capsule.dr, 20 MG PO BID Prescribed by: TRICE GALO on 11/30/21 213 Paliperidone (Paliperidone ER) 9 Mg Tab.er.24, 9 MG PO DAILY, (Reported) Entered as Reported by: DEOVRAH RAZA on 01/10/18 232 Prednisone (Prednisone) 20 Mg Tab, 40 MG PO DAILY Prescribed by: TRICE GALO on 08/13/18 184 Prednisone (Prednisone) 20 Mg Tab, 40 MG PO DAILY Prescribed by: BASIL CASAREZ on 03/30/212005 Ranitidine HCl (Ranitidine HCl) 150 Mg Capsule, 150 MG PO BID, (Reported) Entered as Reported by: DEVORAH RAZA on 01/10/182324 Rosuvastatin Calcium (Rosuvastatin Calcium) 40 Mg Tablet, (Reported) Entered as Reported by: PO WELSH on 03/30/21 192 Sucralfate (Carafate) 1 Gram Tablet, 1 GM PO QIDACHS Prescribed by: TRICE GALO on 11/30/21 213 Terconazole (Terconazole) 45 Gm Cream.appl, 1 UNIT TOP BID Prescribed by: CHIN RUSH on 01/11/18 1015 Tramadol HCl (Tramadol HCl) 50 Mg Tablet, 50 MG PO Q6H PRN for PAIN Prescribed by: CASSIA ORANTES on 06/02/21 151 Tramadol HCl (Ultram) 50 Mg Tablet, 50 MG PO Q6H PRN for PAIN-SEVERE (8-10) Prescribed by: CONCETTA LOVING on 07/02/21 210 Tramadol HCl (Tramadol HCl) 50 Mg Tablet, 50 MG PO Q6H PRN for PAIN Prescribed by: BASIL CASAREZ on 07/03/21 1138 Tramadol HCl (Tramadol HCl) 50 Mg Tablet, 50 MG PO Q4H PRN for PAIN-MODERATE (5- 7) Prescribed by: LOBO MONTIEL on 11/28/21 2210 Trazodone HCl (Trazodone HCl) 150 Mg Tablet, 150 MG PO HS, (Reported) Entered as Reported by: DEVORAH RAZA on 01/10/182324 Triamcinolone Acet (Triamcinolone Acetonide 0.025%) 15 Gm Cr, 1 UNIT TOP BID Prescribed by: CHIN RUSH on 01/11/18 1015 Review of Systems Constitutional: No chills, No diaphoresis, No weakness EENTM: No blurred vision, No double vision Respiratory: No cough, No dyspnea on exertion Cardiovascular: No chest pain, No edema Gastrointestinal: abdominal pain; No diarrhea, No nausea, No vomiting Genitourinary: No decreased output, No discharge Musculoskeletal: No back pain; joint pain, muscle pain Psychiatric/Neurological: Denies Anxiety Past Kucofda-Kgjmca-Fdrljx Hx Patient Social History Tobacco Use?: Yes Tobacco type used: Cigarettes Smoking Status: Current Everyday Smoker Substance use?: No Alcohol Use?: No Pt feels they are or have been: No Immunizations Up To Date Tetanus Booster (TDap): Unknown PED Vaccines UTD: Yes First/Initial COVID19 Vaccinat: UNKNOWN Second COVID19 Vaccination [place]: UNKNOWN Third COVID19 Vaccination Date: UNKNOWN Seasonal Allergies Seasonal Allergies: No Past Medical History Surgery/Hospitalization HX: THRYOID,HIGH CHOLESTEROL, BULDGING CERVICAL DISC,MULTIPLE PSYCH DX, TUBAL, HYSTORECTOMY, asthma, anxiety/depression, ptsd, schizophrenia, htn, DM 2 Surgeries: Yes Bladder Surgery, Hysterectomy Respiratory: Yes Asthma Cardiac: Yes High Cholesterol Neurological: No Reproductive Disorders: Yes (CPP,SUDHEER III) Female Reproductive Disorders: Endometriosis 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 OCCASIONAL DIARRHEA) Gastroesophageal Reflux Musculoskeletal: Yes Arthritis, Chronic Back Pain Endocrine: Yes (NEW DX OF DIABETES 01/09/18) Diabetes, Non-Insulin dep HEENT: No Cancer: No Psychosocial: Yes Sleep Difficulties, Anxiety, PTSD, Personality Disorder, Schizophrenia, Depression Integumentary: No Blood Disorders: No Adverse Reaction/Blood Tranf: No Family Medical History Alcoholism 19 FATHER Thyroid disease 19 MOTHER No Pertinent Family Hx Physical Exam Vital Signs Vital Signs - First Documented 09/29/22 14:45 Temp 36.3 Pulse 90 Resp 18 B/P (MAP) 136/92 (107) Pulse Ox 98 Capillary Refill : Less Than 3 Seconds Height, Weight, BMI Height: 5'2.00" Weight: 260lbs. 5.0oz. 117.525678qu; 32.00 BMI Method:Stated General Appearance: WD/WN, no apparent distress HEENT: PERRL/EOMI, normal ENT inspection, TMs normal, pharynx normal Neck: non-tender, full range of motion, supple, normal inspection Cardiovascular: regular rate, rhythm, no edema, no gallop, no JVD Respiratory: chest non-tender, lungs clear, normal breath sounds, no respiratory distress, no accessory muscle use Gastrointestinal: normal bowel sounds, non tender, soft, no organomegaly Back: normal inspection, no CVA tenderness, no vertebral tenderness Legs: bilateral leg non-tender, bilateral leg normal inspection, bilateral leg normal range of motion Knees: bilateral knee non-tender, bilateral knee normal inspection, bilateral knee normal range of motion; left knee pain (Left medial compartment tenderness. Pain with valgus and varus stress posterior knee. Flexion to 90 degrees of full extension. No swelling, bruising or redness. 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, no motor/sensory deficits, alert, normal mood/affect, oriented x 3 Skin: normal color, warm/dry Progress/Results/Core Measures Results/Orders My Orders Orders - TONE RHODES Knee, Left, 3 Views (09/29/22 15:20) Hydrocodone/Apap 5/325 Tablet (Lortab 5 (09/29/22 15:30) Medications Given in ED Current Medications Medications Dose Ordered Sig/Kumar Route Start Time Stop Time Status Last Admin Dose Admin Acetaminophen/ Hydrocodone Bitart 1 ea ONCE ONCE PO 09/29/22 15:30 09/29/22 15:31 DC 09/29/22 15:44 1 EA Vital Signs/I&O 09/29/22 09/29/22 14:45 16:12 Temp 36.3 36.3 Pulse 90 90 Resp 18 18 B/P (MAP) 136/92 (107) 136/92 Pulse Ox 98 98 Blood Pressure Mean: 107 Departure Communication (PCP) Reviewed previous ER visits, H&P, lab testing. Differential diagnosis left knee fracture, knee sprain. Patient with left knee pain secondary to injury yesterday evening. Patient hyperflexed the left knee. due to mechanism of injury x-ray was ordered. X-ray shows tiny chronic appearing loose body with osteoarthritis. No acute fracture. Pain with certain range of motion and exam. No specific laxity. Discussed knee sprain. Recommend ice anti-inflammatories and rest. Knee brace for support. Orthopedic follow-up in 7 to 10 days for further evaluation. Patient neuro exam unremarkable. No evidence of head trauma. No cervical midline tenderness. No abdominal tenderness. No further imaging of her head or abdomen at this time. Stable vital signs Impression Primary Impression: Knee pain Disposition: 01 HOME, SELF-CARE Condition: Stable Departure-Patient Inst. Decision time for Depature: 15:51 Referrals: ANDREY RESTREPO DO (PCP) Primary Care Physician GEOVANNA LAIRD MD Patient Instructions: Knee Pain ED Scripts Hydrocodone/Acetaminophen (Hydrocodone-Acetamin 5-325 mg) 5 Mg-325 Mg Tablet 1 TAB PO Q4H PRN for PAIN-MODERATE (5-7), #6 TAB Prov: TONE RHODES 09/29/22 Work/School Note: Work Release Form Date Seen in the Emergency Department: Sep 29, 2022 Return to Work: Oct 02, 2022 TONE RHODES Sep 29, 2022 15:24
[2022-09-29] MEDS ORDERED: HYDROcodone/APAP 5 MG/325 MG (LORTAB) TAB PO ONE (15:30)
--- NOTE | 2022-09-29 15:40 | Diagnostic Imaging Report ---
INDICATION: Knee pain. Fall. EXAMINATION: Three view left knee performed. FINDINGS: No fracture or dislocation. There are arthritic changes involving the medial greater than lateral tibiofemoral compartment and a tiny 2 to 3 mm midline loose body anteriorly. IMPRESSION: Tiny chronic-appearing loose body with osteoarthritis. No fracture or acute bony injury apparent. Dictated by: Dictated on workstation # [id number]
[2022-09-29] MEDS ORDERED: ACHD5005 PO (15:52)
[2022-09-29 16:12] VITALS: BP 136/92
== END 2022-09-29 16:12 | disposition home or self-care (01) ==
LOC: EDUNIT# 14:40 → ER 14:47
DX: S89.92XA Unspecified injury of left lower leg, initial encounter (principal); M17.12 Unilateral primary osteoarthritis, left knee; F17.210 Nicotine dependence, cigarettes, uncomplicated; W17.2XXA Fall into hole, initial encounter
CPT/HCPCS: 73562

== ENCOUNTER 2022-11-27 13:43 | Emergency (ER) | payer MEDICAID ==
[~2022-11-27] VITALS: Ht 160 cm; Wt 83.9 kg
[2022-11-27 13:55] VITALS: BP 139/89
[2022-11-27] MEDS ORDERED: CYCLOBENZAPRINE 10 MG (FLEXERIL) TAB PO STA (14:16)
--- NOTE | 2022-11-27 14:26 | Diagnostic Imaging Report ---
EXAM: KNEE, LEFT, 3 VIEWS INDICATION: Left knee pain. Trauma. COMPARISON: 09/29/2022. FINDINGS: No fracture or malalignment. Soft tissue shadows are unremarkable. Mild to moderate degenerative changes in the medial compartment are similar to the prior exam. IMPRESSION: Mild to moderate degenerative changes in the medial compartment are similar to the prior. No acute radiographic findings in the left knee. Dictated by: Dictated on workstation # [id number]
[2022-11-27] MEDS ORDERED: TRM50T PO (14:43)
[2022-11-27] MEDS ORDERED: CYCL10TA25 PO (14:43)
--- NOTE | 2022-11-27 14:45 | ED Lower Extremity ---
General Chief Complaint: Lower Extremity Stated Complaint: INJ LEFT KNEE/ NECK Nursing Triage Note: PT AMBULATE TO TRIAGE WITHOUT DIFFICULTY WITH C/O LEFT KNEE AND NECK PAIN. PT REPORTS SLIPPING IN DOG PEE AND FALLING LANDING ON LEFT KNEE. PT STATES NECK PAIN STARTED 20-30 MIN AFTER SLIPPING. PT REPORTS TAKING IBUPROFEN AT 0930 FOR PAIN WITHOUT RELIEF. (BASIL CASAREZ) History of Present Illness Date Seen by Provider: Nov 27, 2022 Time Seen by Provider: 14:05 Initial Comments 37-year-old female presents with left knee and left lateral neck pain. She reports earlier today that she slipped in dog urine causing her to hyperextend her left knee and fall, the jarring causes pain in her neck. She has had previous evaluations in this emergency department for her left knee. She has had no previous surgeries on her left knee. She tried ibuprofen with no improvement in her symptoms. She is able to ambulate but with a slight antalgic gait. Denies head injury with fall. Pain/Injury Location: left knee Method of Injury: fell, twisted Modifying Factors: Improves With Rest (BASIL CASAREZ) Allergies and Home Medications Allergies Coded Allergies: No Known Drug Allergies (Unverified , 08/15/12) Patient Home Medication List Home Medication List Reviewed: Yes (BASIL CASAREZ) Albuterol Sulfate (Proventil Hfa) 6.7 Gm Hfa.aer.ad, 2 PUFF IH Q4H PRN for SHORTNESS OF BREATH, (Reported) Entered as Reported by: WING LIGHT on 04/23/15 1151 Albuterol Sulfate (Ventolin Hfa) 1 Puff Puff, 2 PUFF IH Q4H Prescribed by: CASSIA ORANTES on 06/07/20 2348 Atorvastatin Calcium (Atorvastatin Calcium) 40 Mg Tablet, 40 MG PO HS, (Reported) Entered as Reported by: DEVORAH RAZA on 01/10/18 2325 Cyclobenzaprine HCl (Cyclobenzaprine HCl) 10 Mg Tablet, 10 MG PO Q8H PRN for SPASMS Prescribed by: BASIL CASAREZ on 03/30/212005 Cyclobenzaprine HCl (Cyclobenzaprine HCl) 10 Mg Tablet, 10 MG PO Q8H PRN for SPASMS Prescribed by: BASIL CASAREZ on 11/27/22 1443 Diclofenac Sodium (Diclofenac Sodium) 75 Mg Tablet.dr, 75 MG PO BID Prescribed by: Carson Proctor on 12/25/212015 Divalproex Sodium (Divalproex Sodium ER) 500 Mg Tab.er.24h, 1,000 MG PO HS, (Reported) Entered as Reported by: DEVORAH RAZA on 01/10/182324 Divalproex Sodium (Divalproex Sodium ER) 250 Mg Tab.er.24h, 250 MG PO DAILY, (Reported) Entered as Reported by: DEVORAH RAZA on 01/10/182324 Docusate Sodium (Docusate Sodium) 100 Mg Capsule, 100 MG PO BID PRN for [place] PATION Prescribed by: VENKAT LOOMIS on 04/29/15 0834 Dulaglutide (Trulicity) 3 Mg/0.5 Ml Pen.injctr, (Reported) Entered as Reported by: PO WELSH on 03/30/211925 Haloperidol (Haloperidol) 10 Mg Tablet, 10 MG PO HS, (Reported) Entered as Reported by: DEVORAH RAZA on 01/10/182324 Haloperidol (Haloperidol) 5 Mg Tablet, 5 MG PO DAILY, (Reported) Entered as Reported by: DEVORAH RAZA on 01/10/182324 Hydrocodone/Acetaminophen (Hydrocodone-Acetamin 5-325 mg) 5 Mg-325 Mg Tablet, 1 TAB PO Q4H PRN for PAIN-MODERATE (5-7) Prescribed by: NAZ SAUNDERS on 03/27/22 2331 Hydrocodone/Acetaminophen (Hydrocodone-Acetamin 5-325 mg) 5 Mg-325 Mg Tablet, 1 TAB PO Q4H PRN for PAIN-MODERATE (5-7) Prescribed by: LOBO MONTIEL on 09/29/22 1552 Hydroxyzine HCl (Hydroxyzine HCl) 25 Mg Tablet, 25-50 MG PO DAILY, (Reported) Entered as Reported by: DEVORAH RAZA on 01/10/182324 Hydroxyzine HCl (Hydroxyzine HCl) 50 Mg Tablet, (Reported) Entered as Reported by: PO WELSH on 03/30/211925 Ibuprofen (Ibuprofen) 600 Mg Tablet, 600 MG PO TID PRN for PAIN, (Reported) Entered as Reported by: DEVORAH RAZA on 11/13/14 1129 Insulin Aspart (Novolog Flexpen) 300 Units/3 Ml Solution, 10 UNITS SQ AC Prescribed by: CHIN RUSH on 01/11/18 1015 Insulin Detemir (Levemir Flextouch) 100 Unit/1 Ml Insuln.pen, 40 UNIT SQ HS Prescribed by: CHIN RUSH on 01/11/18 1015 Levothyroxine Sodium (Levothyroxine Sodium) 75 Mcg Tablet, 75 MCG PO HS, (Reported) Entered as Reported by: WING LIGHT on 04/23/15 1151 Meloxicam (Meloxicam) 15 Mg Tablet, 15 MG PO DAILY Prescribed by: LOBO MONTIEL on 11/28/21 220 Metformin HCl (Metformin HCl ER) 500 Mg Tab.er.24, 500 MG PO BID, (Reported) Entered as Reported by: DEVORAH RAZA on 01/10/18 2325 Methocarbamol (Methocarbamol) 750 Mg Tablet, 750 MG PO Q6-8HR Prescribed by: CONCETTA LOVING on 07/27/21 115 Naproxen (Naprosyn) 500 Mg Tablet, 500 MG PO BID Prescribed by: TRIEC GALO on 08/13/18 184 Naproxen (Naprosyn) 500 Mg Tablet, 500 MG PO BID PRN for PAIN-MODERATE (5-7) Prescribed by: CONCETTA LOVING on 07/27/21 115 Naproxen (Naproxen) 500 Mg Tablet, 500 MG PO Q12H Prescribed by: LOBO MONTIEL on 02/04/22 2108 [place], Insulin Disposable (Advocate Pen [place]) 1 Each Dis.needle, EACH ACHS, (DME) Prescribed by: CHIN RUSH on 01/11/18 1015 Omeprazole (Omeprazole) 20 Mg Capsule.dr, 20 MG PO BID Prescribed by: TRICE GALO on 11/30/21 213 Paliperidone (Paliperidone ER) 9 Mg Tab.er.24, 9 MG PO DAILY, (Reported) Entered as Reported by: DEVORAH RAZA on 01/10/18 2325 Prednisone (Prednisone) 20 Mg Tab, 40 MG PO DAILY Prescribed by: TRICE GALO on 08/13/18 184 Prednisone (Prednisone) 20 Mg Tab, 40 MG PO DAILY Prescribed by: BASIL CASAREZ on 03/30/212005 Ranitidine HCl (Ranitidine HCl) 150 Mg Capsule, 150 MG PO BID, (Reported) Entered as Reported by: DEVORAH RAZA on 01/10/182324 Rosuvastatin Calcium (Rosuvastatin Calcium) 40 Mg Tablet, (Reported) Entered as Reported by: PO WELSH on 03/30/21 192 Sucralfate (Carafate) 1 Gram Tablet, 1 GM PO QIDACHS Prescribed by: TRICE GALO on 11/30/21 213 Terconazole (Terconazole) 45 Gm Cream.appl, 1 UNIT TOP BID Prescribed by: CHIN RUSH on 01/11/18 1015 Tramadol HCl (Tramadol HCl) 50 Mg Tablet, 50 MG PO Q6H PRN for PAIN Prescribed by: CASSIA ORANTES on 06/02/21 1519 Tramadol HCl (Ultram) 50 Mg Tablet, 50 MG PO Q6H PRN for PAIN-SEVERE (8-10) Prescribed by: CONCETTA LOVING on 07/02/21 210 Tramadol HCl (Tramadol HCl) 50 Mg Tablet, 50 MG PO Q6H PRN for PAIN Prescribed by: BASIL CASAREZ on 07/03/21 1138 Tramadol HCl (Tramadol HCl) 50 Mg Tablet, 50 MG PO Q4H PRN for PAIN-MODERATE (5- 7) Prescribed by: LOBO MONTIEL on 11/28/21 2210 Tramadol HCl (Tramadol HCl) 50 Mg Tablet, 50 MG PO Q6H PRN for PAIN Prescribed by: BASIL CASAREZ on 11/27/22 1445 Trazodone HCl (Trazodone HCl) 150 Mg Tablet, 150 MG PO HS, (Reported) Entered as Reported by: DEVORAH RAZA on 01/10/182324 Triamcinolone Acet (Triamcinolone Acetonide 0.025%) 15 Gm Cr, 1 UNIT TOP BID Prescribed by: CHIN RUSH on 01/11/18 1015 Review of Systems Constitutional: no symptoms reported, see HPI Musculoskeletal: see HPI, joint pain (left knee), muscle pain (left trapezius), neck pain Skin: no symptoms reported, see HPI (BASIL CASAREZ) All Other Systems Reviewed Negative Unless Noted: Yes (BASIL CASAREZ) Past Ohesvbv-Aomtjs-Llcaxk Hx Patient Social History Tobacco Use?: Yes Tobacco type used: Cigarettes Smoking Status: Current Everyday Smoker Smokeless Tobacco Frequency: Never a User Use of E-Cig and/or Vaping dev: No Use of E-Cig and/or Vaping Ananda: Never a User Substance use?: No Alcohol Use?: No Pt feels they are or have been: No (BASIL CASAREZ) Immunizations Up To Date Tetanus Booster (TDap): Unknown PED Vaccines UTD: Yes First/Initial COVID19 Vaccinat: UNKNOWN Second COVID19 Vaccination Corbin: UNKNOWN Third COVID19 Vaccination Date: UNKNOWN (BASIL CASAREZ) Seasonal Allergies Seasonal Allergies: No (BASIL CASAREZ) Past Medical History Surgery/Hospitalization HX: THRYOID,HIGH CHOLESTEROL, BULDGING CERVICAL DISC,MULTIPLE PSYCH DX, TUBAL, HYSTORECTOMY, asthma, anxiety/depression, ptsd, schizophrenia, htn, DM 2 Surgeries: Yes Bladder Surgery, Hysterectomy Respiratory: Yes Asthma Cardiac: Yes High Cholesterol Neurological: No Reproductive Disorders: Yes (CPP,SUDHEER III) Female Reproductive Disorders: Endometriosis [employer] History: Hysterectomy 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 OCCASIONAL DIARRHEA) Gastroesophageal Reflux Musculoskeletal: Yes Arthritis, Chronic Back Pain Endocrine: Yes (NEW DX OF DIABETES 01/09/18) Diabetes, Non-Insulin dep HEENT: No Cancer: No Psychosocial: Yes Sleep Difficulties, Anxiety, PTSD, Personality Disorder, Schizophrenia, Depression Integumentary: No Blood Disorders: No Adverse Reaction/Blood Tranf: No (BASIL CASAREZ) Family Medical History Reviewed Nursing Family Hx (BASIL CASAREZ) Alcoholism 19 FATHER Thyroid disease 19 MOTHER No Pertinent Family Hx (BASIL CASAREZ) Physical Exam Vital Signs Vital Signs - First Documented 11/27/22 13:55 Temp 36.8 Pulse 131 Resp 18 B/P (MAP) 139/89 (106) O2 Delivery Room Air (NAZ LLANOS MD) Vital Signs Capillary Refill : Less Than 3 Seconds (BASIL CASAREZ) Height, Weight, BMI Height: 5'2.00" Weight: 260lbs. 5.0oz. 117.543734sy; 32.00 BMI Method:Stated General Appearance: WD/WN, no apparent distress Neck: full range of motion, supple, normal inspection, tender lateral (left), other (no radicular symptoms in arms or parasthesias. ) Cardiovascular: normal peripheral pulses, regular rate, rhythm Respiratory: chest non-tender, lungs clear, normal breath sounds Gastrointestinal: normal bowel sounds, non tender, soft Knees: left knee normal inspection, left knee normal range of motion, left knee bone tenderness (anterior), left knee soft tissue tenderness, left knee other (no instability) Neurologic/Psychiatric: no motor/sensory deficits, alert, normal mood/affect, oriented x 3 Skin: normal color, warm/dry (BASIL CASAREZ) Progress/Results/Core Measures Results/Orders Vital Signs/I&O 11/27/22 13:55 Temp 36.8 Pulse 131 Resp 18 B/P (MAP) 139/89 (106) O2 Delivery Room Air (NAZ LLANOS MD) Blood Pressure Mean: 106 Progress Progress Note : Time: 14:05 Progress Note Patient assessed, will obtain x-rays of that knee. Tramadol 50 mg for pain and cyclobenzaprine 10 mg for muscle spasms. Will reassess her x-ray. 1500 x-ray show no acute finding, marked degenerative changes in the left knee. Patient reports neck and knee pain improved after medication. Discharge instructions and return precautions reviewed with her. (BASIL CASAREZ) Diagnostic Imaging Diagonstic Imaging: Xray Plain Films/CT/US/NM/MRI: knee Comments NAME: [facility] REC#: [id number] PT STATUS: REG ER : 1985 PHYSICIAN: BASIL CASAREZ ADMIT DATE: 11/27/22/ER Draft Date of Exam:11/27/22 KNEE, LEFT, 3 VIEWS EXAM: KNEE, LEFT, 3 VIEWS INDICATION: Left knee pain. Trauma. COMPARISON: 09/29/2022. FINDINGS: No fracture or malalignment. Soft tissue shadows are unremarkable. Mild to moderate degenerative changes in the medial compartment are similar to the prior exam. IMPRESSION: Mild to moderate degenerative changes in the medial compartment are similar to the prior. No acute radiographic findings in the left knee. Dictated on workstation # [id number] Dict: 11/27/22 1423 Trans: 11/27/22 1426 [facility] [id number] Interpreted by: SOHAN COWART MD Electronically signed by: Reviewed: Reviewed by Me (BASIL CASAREZ) Departure Impression Primary Impression: Fall on same level as cause of accidental injury Additional Impressions: Knee pain, left Qualified Codes: M25.562 - Pain in left knee Neck strain Qualified Codes: S16.1XXA - Strain of muscle, fascia and tendon at neck level, initial encounter Disposition: 01 HOME, SELF-CARE Condition: Improved Departure-Patient Inst. Decision time for Depature: 14:30 (BASIL CASAREZ) Referrals: ANDREY RESTREPO DO (PCP/Family) Primary Care Physician Patient Instructions: Knee Sprain (DC), Neck Sprain (DC) Add. Discharge Instructions: Alternate heat and ice to your left knee and your neck. Schedule a follow-up appointment with Dr. Restrepo if symptoms or not improving or worsen. You may alternate between Tylenol 650 mg and ibuprofen 600 mg every 4 hours for pain. Use the tramadol if the Tylenol and ibuprofen are not controlling your symptoms. Use the muscle relaxant as prescribed. Return to the emergency department for new, urgent healthcare needs. All discharge instructions reviewed with patient and/or family. Voiced understanding. Scripts Tramadol HCl (Tramadol HCl) 50 Mg Tablet 50 MG PO Q6H PRN for PAIN, #20 TAB 0 Refills Prov: BASIL CASAREZ 11/27/22 Cyclobenzaprine HCl (Cyclobenzaprine HCl) 10 Mg Tablet 10 MG PO Q8H PRN for SPASMS, #15 TAB 0 Refills Prov: BASIL CASAREZ 11/27/22 ATTENDING PHYSICIAN NOTE: I was physically present as attending physician in the emergency department during the care of this patient, but I was not directly involved in the decision making or delivery of care for this patient. (NAZ LLANOS MD) BASIL CASAREZ Nov 27, 2022 14:45 NAZ LLANOS MD Nov 28, 2022 10:06
== END 2022-11-27 14:48 | disposition home or self-care (01) ==
LOC: EDUNIT# 13:43 → ER 13:45
DX: S16.1XXA Strain of muscle, fascia and tendon at neck level, initial encounter (principal); M25.562 Pain in left knee; F17.210 Nicotine dependence, cigarettes, uncomplicated; W01.0XXA Fall on same level from slipping, tripping and stumbling without subsequent striking against object, initial encounter; X50.1XXA Overexertion from prolonged static or awkward postures, initial encounter
CPT/HCPCS: 73562

== ENCOUNTER 2022-12-24 14:51 | Emergency (ER) | payer MEDICAID ==
[~2022-12-24] VITALS: Ht 160 cm; Wt 86.1 kg
--- NOTE | 2022-12-24 15:52 | ED EENT ---
History of Present Illness General Chief Complaint: Dental Problems/Pain Stated Complaint: TOOTH PAIN Nursing Triage Note: Pt presents to ER with complaints of bilateral lower dental pain for the past few days, reports that she is scheduled to see the dentist on January 17. Pt reports "I can't wait that long, I need pain medications". Pt reports that she took Motrin 800mg at approximately 1000 without improvement History of Present Illness Date Seen by Provider: Dec 24, 2022 Time Seen by Provider: 15:35 Initial Comments 37 year old female presents for dental pain, she has been evaluated at [facility] and was started on Amoxicillin. She has appt with [facility] Dental on 01/17/23. She is using oragel and continues to have pain. Timing/Duration: other Severity: moderate Location: dental Prearrival Treatment: over the counter meds, prescription meds Associated Symptoms: facial pain/swelling (bilat. ); No fever, No malaise, No poor fluid intake, No poor solids intake; tooth pain Allergies and Home Medications Allergies Coded Allergies: No Known Drug Allergies (Unverified , 08/15/12) Patient Home Medication List Home Medication List Reviewed: Yes Albuterol Sulfate (Proventil Hfa) 6.7 Gm Hfa.aer.ad, 2 PUFF IH Q4H PRN for SHORTNESS OF BREATH, (Reported) Entered as Reported by: WING LIGHT on 04/23/15 1151 Albuterol Sulfate (Ventolin Hfa) 1 Puff Puff, 2 PUFF IH Q4H Prescribed by: CASSIA ORANTES on 06/07/20 2348 Atorvastatin Calcium (Atorvastatin Calcium) 40 Mg Tablet, 40 MG PO HS, (Reported) Entered as Reported by: DEVORAH RAZA on 01/10/18 2325 Cyclobenzaprine HCl (Cyclobenzaprine HCl) 10 Mg Tablet, 10 MG PO Q8H PRN for SPASMS Prescribed by: BASIL CASAREZ on 03/30/212005 Cyclobenzaprine HCl (Cyclobenzaprine HCl) 10 Mg Tablet, 10 MG PO Q8H PRN for SPASMS Prescribed by: BASIL CASAREZ on 11/27/22 1443 Diclofenac Sodium (Diclofenac Sodium) 75 Mg Tablet.dr, 75 MG PO BID Prescribed by: Carson Proctor on 12/25/212015 Divalproex Sodium (Divalproex Sodium ER) 500 Mg Tab.er.24h, 1,000 MG PO HS, (Reported) Entered as Reported by: DEVORAH RAZA on 01/10/18 232 Divalproex Sodium (Divalproex Sodium ER) 250 Mg Tab.er.24h, 250 MG PO DAILY, (Reported) Entered as Reported by: DEVORAH RAZA on 01/10/18 232 Docusate Sodium (Docusate Sodium) 100 Mg Capsule, 100 MG PO BID PRN for CONSTIPATION Prescribed by: VENKAT LOOMIS on 04/29/15 0834 Dulaglutide (Trulicity) 3 Mg/0.5 Ml Pen.injctr, (Reported) Entered as Reported by: PO WELSH on 03/30/211925 Haloperidol (Haloperidol) 10 Mg Tablet, 10 MG PO HS, (Reported) Entered as Reported by: DEVORAH RAZA on 01/10/182324 Haloperidol (Haloperidol) 5 Mg Tablet, 5 MG PO DAILY, (Reported) Entered as Reported by: DEVORAH RAZA on 01/10/18 232 Hydrocodone/Acetaminophen (Hydrocodone-Acetamin 5-325 mg) 5 Mg-325 Mg Tablet, 1 TAB PO Q4H PRN for PAIN-MODERATE (5-7) Prescribed by: NAZ SAUNDERS on 03/27/22 2331 Hydrocodone/Acetaminophen (Hydrocodone-Acetamin 5-325 mg) 5 Mg-325 Mg Tablet, 1 TAB PO Q4H PRN for PAIN-MODERATE (5-7) Prescribed by: LOBO MONTIEL on 09/29/22 1552 Hydroxyzine HCl (Hydroxyzine HCl) 25 Mg Tablet, 25-50 MG PO DAILY, (Reported) Entered as Reported by: DEVORAH RAZA on 01/10/18 232 Hydroxyzine HCl (Hydroxyzine HCl) 50 Mg Tablet, (Reported) Entered as Reported by: PO WELSH on 03/30/211925 Ibuprofen (Ibuprofen) 600 Mg Tablet, 600 MG PO TID PRN for PAIN, (Reported) Entered as Reported by: DEVORAH RAZA on 11/13/14 1129 Insulin Aspart (Novolog Flexpen) 300 Units/3 Ml Solution, 10 UNITS SQ AC Prescribed by: CHIN RUSH on 01/11/18 1015 Insulin Detemir (Levemir Flextouch) 100 Unit/1 Ml Insuln.pen, 40 UNIT SQ HS Prescribed by: CHIN RUSH on 01/11/18 1015 Levothyroxine Sodium (Levothyroxine Sodium) 75 Mcg Tablet, 75 MCG PO HS, (Reported) Entered as Reported by: WING LIGHT on 04/23/15 1151 Meloxicam (Meloxicam) 15 Mg Tablet, 15 MG PO DAILY Prescribed by: LOBO MONTIEL on 11/28/21 220 Metformin HCl (Metformin HCl ER) 500 Mg Tab.er.24, 500 MG PO BID, (Reported) Entered as Reported by: DEVORAH RAZA on 01/10/182324 Methocarbamol (Methocarbamol) 750 Mg Tablet, 750 MG PO Q6-8HR Prescribed by: CONCETTA LOVING on 07/27/21 115 Naproxen (Naprosyn) 500 Mg Tablet, 500 MG PO BID Prescribed by: TRICE GALO on 08/13/18 184 Naproxen (Naprosyn) 500 Mg Tablet, 500 MG PO BID PRN for PAIN-MODERATE (5-7) Prescribed by: CONCETTA LOVING on 07/27/21 115 Naproxen (Naproxen) 500 Mg Tablet, 500 MG PO Q12H Prescribed by: LOBO MONTIEL on 02/04/22 210 [place], Insulin Disposable (Advocate Pen [place]) 1 Each Dis.needle, EACH MC ACHS, (DME) Prescribed by: CHIN RUSH on 01/11/18 1015 Omeprazole (Omeprazole) 20 Mg Capsule.dr, 20 MG PO BID Prescribed by: TRICE GALO on 11/30/21 213 Paliperidone (Paliperidone ER) 9 Mg Tab.er.24, 9 MG PO DAILY, (Reported) Entered as Reported by: DEVORAH RAZA on 01/10/182324 Prednisone (Prednisone) 20 Mg Tab, 40 MG PO DAILY Prescribed by: TRICE GALO on 08/13/18 184 Prednisone (Prednisone) 20 Mg Tab, 40 MG PO DAILY Prescribed by: BASIL CASAREZ on 03/30/212005 Ranitidine HCl (Ranitidine HCl) 150 Mg Capsule, 150 MG PO BID, (Reported) Entered as Reported by: DEVORAH RAZA on 01/10/18 232 Rosuvastatin Calcium (Rosuvastatin Calcium) 40 Mg Tablet, (Reported) Entered as Reported by: PO WELSH on 03/30/21 192 Sucralfate (Carafate) 1 Gram Tablet, 1 GM PO QIDACHS Prescribed by: TRICE GALO on 11/30/21 213 Terconazole (Terconazole) 45 Gm Cream.appl, 1 UNIT TOP BID Prescribed by: CHIN RUSH on 01/11/18 1015 Tramadol HCl (Tramadol HCl) 50 Mg Tablet, 50 MG PO Q6H PRN for PAIN Prescribed by: CASSIA ORANTES on 06/02/21 151 Tramadol HCl (Ultram) 50 Mg Tablet, 50 MG PO Q6H PRN for PAIN-SEVERE (8-10) Prescribed by: CONCETTA LOVING on 07/02/21 210 Tramadol HCl (Tramadol HCl) 50 Mg Tablet, 50 MG PO Q6H PRN for PAIN Prescribed by: BASIL CASAREZ on 07/03/21 1138 Tramadol HCl (Tramadol HCl) 50 Mg Tablet, 50 MG PO Q4H PRN for PAIN-MODERATE (5- 7) Prescribed by: LOBO MONTIEL on 11/28/21 2210 Tramadol HCl (Tramadol HCl) 50 Mg Tablet, 50 MG PO Q6H PRN for PAIN Prescribed by: BASIL CASAREZ on 11/27/22 1445 Trazodone HCl (Trazodone HCl) 150 Mg Tablet, 150 MG PO HS, (Reported) Entered as Reported by: DEVORAH RAZA on 01/10/182324 Triamcinolone Acet (Triamcinolone Acetonide 0.025%) 15 Gm Cr, 1 UNIT TOP BID Prescribed by: CHIN RUSH on 01/11/18 1015 Review of Systems Review of Systems Constitutional: no symptoms reported, see HPI Mouth: see HPI, pain (dental bilat lower) All Other Systems Reviewed Negative Unless Noted: Yes Past Jbjnbfs-Tkgceg-Rajgao Hx Immunizations Up To Date Tetanus Booster (TDap): Unknown PED Vaccines UTD: Yes First/Initial COVID19 Vaccinat: unknown Second COVID19 Vaccination [place]: UNKNOWN Third COVID19 Vaccination Date: UNKNOWN Seasonal Allergies Seasonal Allergies: No Past Medical History Surgery/Hospitalization HX: "mental issues"-pt unable to elaborate on actual diagnosis Surgeries: Yes Bladder Surgery, Hysterectomy Respiratory: Yes Asthma Cardiac: Yes High Cholesterol Neurological: No Reproductive Disorders: Yes (CPP,SUDHEER III) Female 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 OCCASIONAL DIARRHEA) Gastroesophageal Reflux Musculoskeletal: Yes Arthritis, Chronic Back Pain Endocrine: Yes (NEW DX OF DIABETES 01/09/18) Diabetes, Non-Insulin dep HEENT: No Cancer: No Psychosocial: Yes Sleep Difficulties, Anxiety, PTSD, Personality Disorder, Schizophrenia, Depression Integumentary: No Blood Disorders: No Adverse Reaction/Blood Tranf: No Family Medical History Reviewed Nursing Family Hx Alcoholism 19 FATHER Thyroid disease 19 MOTHER No Pertinent Family Hx Physical Exam Vital Signs Vital Signs - First Documented 12/24/22 12/24/22 14:56 16:34 Temp 37.2 Pulse 109 Resp 18 B/P (MAP) 115/78 Pulse Ox 95 O2 Delivery Room Air Height, Weight, BMI Height: 5'2.00" Weight: 260lbs. 5.0oz. 117.642803ww; 33.00 BMI Method:Stated General Appearance: WD/WN Nose: normal inspection; No active bleeding, No discharge Mouth/Throat: pharynx normal, dental tenderness (#19 and 30); No mandibular swelling, No maxillary swelling Neck: non-tender, full range of motion, supple, normal inspection Cardiovascular: normal peripheral pulses, regular rate, rhythm Respiratory: chest non-tender, lungs clear, normal breath sounds Neurologic/Psychiatric: no motor/sensory deficits, alert, normal mood/affect, oriented x 3 Progress/Results/Core Measures Results/Orders My Orders Orders - BASIL CASAREZ Lidocaine 2% Viscous 15 Ml (Xylocaine Vi (12/24/22 16:30) Medications Given in ED Current Medications Medications Dose Ordered Sig/Kumar Route Start Time Stop Time Status Last Admin Dose Admin Lidocaine HCl 5 ml ONCE ONCE PO 12/24/22 16:30 12/24/22 16:31 DC 12/24/22 16:34 5 ML Vital Signs/I&O 12/24/22 12/24/22 14:56 16:34 Temp 37.2 Pulse 109 85 Resp 18 16 B/P (MAP) 115/78 Pulse Ox 95 95 O2 Delivery Room Air Room Air Departure Impression Primary Impression: Pain, dental Disposition: HOME, SELF-CARE Condition: Improved Departure-Patient Inst. Decision time for Depature: 16:00 Referrals: ANDREY RESTREPO DO (PCP/Family) Primary Care Physician Patient Instructions: Dental Pain (DC) Add. Discharge Instructions: Get warm moist washcloths and apply to your cheek for pain. Gargle warm water and salt every 2-3 hours. Continue to take the amoxicillin as prescribed. Apply Lidocaine 2x2s to areas of tenderness for 1 hour every 8 hours. Remove before sleeping. Follow-up at [facility] to see about getting an appointment with dental sooner. Continue to alternate between ibuprofen 600 mg and Tylenol 650 mg every 4 hours. Return to the emergency department for new, urgent healthcare needs. All discharge instructions reviewed with patient and/or family. Voiced understanding. Copy Copies To 1: ANDREY RESTREPO AMY ARNP Dec 24, 2022 15:52
[2022-12-24] MEDS ORDERED: LIDOCAINE 2% VISCOUS 15 ML UDC PO ONE (16:30)
[2022-12-24 16:34] VITALS: BP 115/78
== END 2022-12-24 16:35 | disposition home or self-care (01) ==
LOC: EDUNIT# 14:51 → ER 14:52
DX: K08.89 Other specified disorders of teeth and supporting structures (principal)
CPT/HCPCS: 99281

== ENCOUNTER 2023-01-23 19:37 | Emergency (ER) | payer MEDICAID ==
[2023-01-23 19:45] VITALS: BP 133/95
[2023-01-23] MEDS ORDERED: ACHD5005 PO (20:01)
--- NOTE | 2023-01-23 20:02 | ED Lower Extremity ---
General Chief Complaint: Lower Extremity Stated Complaint: LT KNEE PAIN/FALL Source: patient Exam Limitations: no limitations History of Present Illness Date Seen by Provider: Jan 23, 2023 Time Seen by Provider: 19:59 Initial Comments Patient is a 37-year-old female presents ED with left knee pain. Patient states she injured her knee around 12:00 today. She was walking down the stairs felt a pop in her left knee. Since then she has had pain with bearing weight or movement. She reports mild swelling. Pain is anterior and posterior left knee. She took ibuprofen at home without much improvement. She reports history of a previous tear and diagnosed 6 months ago. She denies of any distal numbness and tingling, falls, chest pain, shortness of breath. Denies using any brace Allergies and Home Medications Allergies Coded Allergies: No Known Drug Allergies (Unverified , 08/15/12) Patient Home Medication List Home Medication List Reviewed: Yes Albuterol Sulfate (Proventil Hfa) 6.7 Gm Hfa.aer.ad, 2 PUFF IH Q4H PRN for SHORTNESS OF BREATH, (Reported) Entered as Reported by: WING LIGHT on 04/23/15 1151 Albuterol Sulfate (Ventolin Hfa) 1 Puff Puff, 2 PUFF IH Q4H Prescribed by: CASSIA ORANTES on 06/07/20 2348 Atorvastatin Calcium (Atorvastatin Calcium) 40 Mg Tablet, 40 MG PO HS, (Reported) Entered as Reported by: DEVORAH RAZA on 01/10/182324 Cyclobenzaprine HCl (Cyclobenzaprine HCl) 10 Mg Tablet, 10 MG PO Q8H PRN for SPASMS Prescribed by: BASIL CASAREZ on 03/30/212005 Cyclobenzaprine HCl (Cyclobenzaprine HCl) 10 Mg Tablet, 10 MG PO Q8H PRN for SPASMS Prescribed by: BASIL CASAREZ on 11/27/22 1443 Diclofenac Sodium (Diclofenac Sodium) 75 Mg Tablet.dr, 75 MG PO BID Prescribed by: Carson Proctor on 12/25/212015 Divalproex Sodium (Divalproex Sodium ER) 500 Mg Tab.er.24h, 1,000 MG PO HS, (Reported) Entered as Reported by: DEVORAH RAZA on 01/10/18 232 Divalproex Sodium (Divalproex Sodium ER) 250 Mg Tab.er.24h, 250 MG PO DAILY, (Reported) Entered as Reported by: DEVORAH RAZA on 01/10/182324 Docusate Sodium (Docusate Sodium) 100 Mg Capsule, 100 MG PO BID PRN for CONSTIPATION Prescribed by: VENKAT LOOMIS on 04/29/15 0834 Dulaglutide (Trulicity) 3 Mg/0.5 Ml Pen.injctr, (Reported) Entered as Reported by: PO WELSH on 03/30/211925 Haloperidol (Haloperidol) 10 Mg Tablet, 10 MG PO HS, (Reported) Entered as Reported by: DEVORAH RAZA on 01/10/182324 Haloperidol (Haloperidol) 5 Mg Tablet, 5 MG PO DAILY, (Reported) Entered as Reported by: DEVORAH RAZA on 01/10/182324 Hydrocodone/Acetaminophen (Hydrocodone-Acetamin 5-325 mg) 5 Mg-325 Mg Tablet, 1 TAB PO Q4H PRN for PAIN-MODERATE (5-7) Prescribed by: NAZ SAUNDERS on 03/27/22 2331 Hydrocodone/Acetaminophen (Hydrocodone-Acetamin 5-325 mg) 5 Mg-325 Mg Tablet, 1 TAB PO Q4H PRN for PAIN-MODERATE (5-7) Prescribed by: LOBO MONTIEL on 09/29/22 155 Hydrocodone/Acetaminophen (Hydrocodone-Acetamin 5-325 mg) 5 Mg-325 Mg Tablet, 1 TAB PO Q4H PRN for PAIN-MODERATE (5-7) Prescribed by: LOBO MONTIEL on 01/23/232001 Hydroxyzine HCl (Hydroxyzine HCl) 25 Mg Tablet, 25-50 MG PO DAILY, (Reported) Entered as Reported by: DEVORAH RAZA on 01/10/182324 Hydroxyzine HCl (Hydroxyzine HCl) 50 Mg Tablet, (Reported) Entered as Reported by: PO WELSH on 03/30/211925 Ibuprofen (Ibuprofen) 600 Mg Tablet, 600 MG PO TID PRN for PAIN, (Reported) Entered as Reported by: DEVORAH RAZA on 11/13/14 1129 Insulin Aspart (Novolog Flexpen) 300 Units/3 Ml Solution, 10 UNITS SQ AC Prescribed by: CHIN RUSH on 01/11/18 1015 Insulin Detemir (Levemir Flextouch) 100 Unit/1 Ml Insuln.pen, 40 UNIT SQ HS Prescribed by: CHIN RUSH on 01/11/18 1015 Levothyroxine Sodium (Levothyroxine Sodium) 75 Mcg Tablet, 75 MCG PO HS, (Reported) Entered as Reported by: WING LIGHT on 04/23/15 1151 Meloxicam (Meloxicam) 15 Mg Tablet, 15 MG PO DAILY Prescribed by: LOBO MONTIEL on 11/28/21 220 Metformin HCl (Metformin HCl ER) 500 Mg Tab.er.24, 500 MG PO BID, (Reported) Entered as Reported by: DEVORAH RAZA on 01/10/182324 Methocarbamol (Methocarbamol) 750 Mg Tablet, 750 MG PO Q6-8HR Prescribed by: CONCETTA LOVING on 07/27/21 115 Naproxen (Naprosyn) 500 Mg Tablet, 500 MG PO BID Prescribed by: TRICE GALO on 08/13/18 184 Naproxen (Naprosyn) 500 Mg Tablet, 500 MG PO BID PRN for PAIN-MODERATE (5-7) Prescribed by: CONCETTA LOVING on 07/27/21 115 Naproxen (Naproxen) 500 Mg Tablet, 500 MG PO Q12H Prescribed by: LOBO MONTIEL on 02/04/22 2108 [place], Insulin Disposable (Advocate Pen [place]) 1 Each Dis.needle, EACH ACHS, (DME) Prescribed by: CHIN RUSH on 01/11/18 1015 Omeprazole (Omeprazole) 20 Mg Capsule.dr, 20 MG PO BID Prescribed by: TRICE GALO on 11/30/21 213 Paliperidone (Paliperidone ER) 9 Mg Tab.er.24, 9 MG PO DAILY, (Reported) Entered as Reported by: DEVORAH RAZA on 01/10/182324 Prednisone (Prednisone) 20 Mg Tab, 40 MG PO DAILY Prescribed by: TRICE GALO on 08/13/181847 Prednisone (Prednisone) 20 Mg Tab, 40 MG PO DAILY Prescribed by: BASIL CASAREZ on 03/30/212005 Ranitidine HCl (Ranitidine HCl) 150 Mg Capsule, 150 MG PO BID, (Reported) Entered as Reported by: DEVORAH RAZA on 01/10/182324 Rosuvastatin Calcium (Rosuvastatin Calcium) 40 Mg Tablet, (Reported) Entered as Reported by: PO WELSH on 03/30/21 192 Sucralfate (Carafate) 1 Gram Tablet, 1 GM PO QIDACHS Prescribed by: TRICE GALO on 11/30/21 213 Terconazole (Terconazole) 45 Gm Cream.appl, 1 UNIT TOP BID Prescribed by: CHIN RUSH on 01/11/18 1015 Tramadol HCl (Tramadol HCl) 50 Mg Tablet, 50 MG PO Q6H PRN for PAIN Prescribed by: CASSIA ORANTES on 06/02/21 151 Tramadol HCl (Ultram) 50 Mg Tablet, 50 MG PO Q6H PRN for PAIN-SEVERE (8-10) Prescribed by: CONCETTA LOVING on 07/02/21 210 Tramadol HCl (Tramadol HCl) 50 Mg Tablet, 50 MG PO Q6H PRN for PAIN Prescribed by: BASIL CASAREZ on 07/03/21 1138 Tramadol HCl (Tramadol HCl) 50 Mg Tablet, 50 MG PO Q4H PRN for PAIN-MODERATE (5- 7) Prescribed by: LOBO MONTIEL on 11/28/21 2210 Tramadol HCl (Tramadol HCl) 50 Mg Tablet, 50 MG PO Q6H PRN for PAIN Prescribed by: BASIL CASAREZ on 11/27/22 1445 Trazodone HCl (Trazodone HCl) 150 Mg Tablet, 150 MG PO HS, (Reported) Entered as Reported by: DEVORAH RAZA on 01/10/182324 Triamcinolone Acet (Triamcinolone Acetonide 0.025%) 15 Gm Cr, 1 UNIT TOP BID Prescribed by: CHIN RUSH on 01/11/18 1015 Review of Systems Constitutional: No chills, No diaphoresis, No malaise, No weakness EENTM: No hearing loss, No ear pain, No blurred vision Cardiovascular: No chest pain Gastrointestinal: No abdominal pain, No diarrhea, No nausea, No vomiting Genitourinary: No decreased output Musculoskeletal: No back pain; joint pain, joint swelling; No muscle pain, No muscle stiffness Skin: No change in color, No change in hair/nails All Other Systems Reviewed Negative Unless Noted: Yes Past Mmiloha-Xyjghv-Lqpuln Hx Immunizations Up To Date Tetanus Booster (TDap): Unknown PED Vaccines UTD: Yes First/Initial COVID19 Vaccinat: unknown Second COVID19 Vaccination [place]: UNKNOWN Third COVID19 Vaccination Date: UNKNOWN Seasonal Allergies Seasonal Allergies: No Past Medical History Surgery/Hospitalization HX: "mental issues"-pt unable to elaborate on actual diagnosis Surgeries: Yes Bladder Surgery, Hysterectomy Respiratory: Yes Asthma Cardiac: Yes High Cholesterol Neurological: No Reproductive Disorders: Yes (CPP,SUDHEER III) Female Reproductive Disorders: Endometriosis 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 OCCASIONAL DIARRHEA) Gastroesophageal Reflux Musculoskeletal: Yes Arthritis, Chronic Back Pain Endocrine: Yes (NEW DX OF DIABETES 01/09/18) Diabetes, Non-Insulin dep HEENT: No Cancer: No Psychosocial: Yes Sleep Difficulties, Anxiety, PTSD, Personality Disorder, Schizophrenia, Depression Integumentary: No Blood Disorders: No Adverse Reaction/Blood Tranf: No Family Medical History Alcoholism 19 FATHER Thyroid disease 19 MOTHER No Pertinent Family Hx Physical Exam Vital Signs Capillary Refill : Height, Weight, BMI Height: 5'2.00" Weight: 260lbs. 5.0oz. 117.625379oh; 33.00 BMI Method:Stated General Appearance: WD/WN, no apparent distress HEENT: PERRL/EOMI, normal ENT inspection, TMs normal, pharynx normal Neck: non-tender, full range of motion, supple Cardiovascular: regular rate, rhythm, no edema, no gallop, no JVD Respiratory: chest non-tender, lungs clear, normal breath sounds, no respiratory distress, no accessory muscle use Gastrointestinal: normal bowel sounds, non tender, soft Back: normal inspection, no CVA tenderness Hips: bilateral hip non-tender, bilateral hip normal inspection, bilateral hip normal range of motion Knees: left knee pain, left knee soft tissue tenderness, left knee other (Pain with anterior posterior drawer test. Pain with Joana test. 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 Differential diagnosis left knee sprain, left knee fracture . history of left knee injury. She states she has had an MRI 6 months ago that showed a tear. She is unclear if this was her meniscus or ligaments. She states she was walking down the stairs felt a pop sharp pain in her left knee. She denies falling or landing on the left knee. On exam mild swelling. Flexion to 90 degrees with full extension. Pain with anterior and posterior drawer test, valgus and varus stress. Pain with Joana test without obvious clicking. Due to mechanism of injury unlikely fracture. She is able to stand and bear weight and walk. Discussed with patient this is likely knee sprain. Recommend ice, anti-inflammatories Jamil brace for support. Range of motion's. If continued pain recommend orthopedic follow-up in 7 to 10 days for further evaluation. Since she did not fall or land on the left knee unlikely fracture. Will discharge a few days worth of pain medication. Return precaution were discussed Impression Primary Impression: Sprain of knee Disposition: HOME, SELF-CARE Condition: Stable Departure-Patient Inst. Decision time for Depature: 20:01 Referrals: ANDREY RESTREPO DO (PCP/Family) Primary Care Physician GEOVANNA LAIRD MD Patient Instructions: Knee Sprain ED Scripts Hydrocodone/Acetaminophen (Hydrocodone-Acetamin 5-325 mg) 5 Mg-325 Mg Tablet 1 TAB PO Q4H PRN for PAIN-MODERATE (5-7), #5 TAB Prov: TONE RHODES 01/23/23 TONE RHODES Jan 23, 2023 20:02
== END 2023-01-23 20:08 | disposition home or self-care (01) ==
LOC: EDUNIT# 19:37 → ER 19:40
DX: S83.92XA Sprain of unspecified site of left knee, initial encounter (principal); Z87.828 Personal history of other (healed) physical injury and trauma; X50.1XXA Overexertion from prolonged static or awkward postures, initial encounter; Y93.01 Activity, walking, marching and hiking
CPT/HCPCS: 99281

== ENCOUNTER 2023-01-25 23:49 | Emergency (ER) | payer MEDICAID ==
[~2023-01-25] VITALS: Ht 160 cm; Wt 83.0 kg
[2023-01-25 23:55] VITALS: BP 141/109
--- NOTE | 2023-01-26 00:24 | ED Neck-Back Pain/Injury ---
General Chief Complaint: Head/Cervical Problems Stated Complaint: NECK PAIN Nursing Triage Note: PATIENT REPORTS SHE WAS WALKING AROUND TODAY STATES "FELT A POP" IN HER NECK. REPORTS NUMBNESS UP HER NECK INTO HER HEAD. PATIENT STATES TOOK MOTRIN WITH NO RELIEF, STATES SHE DID NOT GO TO THE CLINIC SINCE THEY WOULDN'T HELP HER. Source of Information: Patient Exam Limitations: No Limitations History of Present Illness Date Seen by Provider: Jan 26, 2023 Time Seen by Provider: 00:00 Initial Comments Patient is a 37yo female with a history of mental illness and apparent intellectual disability who states that she was "just walking" around at 4pm and felt a "pop" in the back of her neck. She states that she developed pain in her neck and back afterwards. It radiates up to her forehead. No numbness or weakness to her arms. She states she has a history of a "bulging disc" in her neck diagnosed here about 3 years ago but she has never had anything like this before. No trauma this evening. She has had a slight cough with sputum in the last couple of days. She is a smoker. No f/c/n/v/d. She did take some ibuprofen for the pain about 30 min after it started without any relief. Nothing since. Location: [facility]Sp[facility] Timing/Duration: 12 Hours Severity: Moderate Pain/Injury Location: Neck Radiation: Other (back and shoulders) Modifying Factors: Worse With Movement Associated Symptoms: denies symptoms Allergies and Home Medications Allergies Coded Allergies: No Known Drug Allergies (Unverified , 08/15/12) Patient Home Medication List Home Medication List Reviewed: Yes Albuterol Sulfate (Proventil Hfa) 6.7 Gm Hfa.aer.ad, 2 PUFF IH Q4H PRN for SHORTNESS OF BREATH, (Reported) Entered as Reported by: WING LIGHT on 04/23/15 1151 Albuterol Sulfate (Ventolin Hfa) 1 Puff Puff, 2 PUFF IH Q4H Prescribed by: CASSIA ORANTES on 06/07/20 2348 Atorvastatin Calcium (Atorvastatin Calcium) 40 Mg Tablet, 40 MG PO HS, (Reported) Entered as Reported by: DEVORAH RAZA on 01/10/18 2325 Cyclobenzaprine HCl (Cyclobenzaprine HCl) 10 Mg Tablet, 10 MG PO Q8H PRN for SPASMS Prescribed by: BASIL CASAREZ on 03/30/212005 Cyclobenzaprine HCl (Cyclobenzaprine HCl) 10 Mg Tablet, 10 MG PO Q8H PRN for SPASMS Prescribed by: BASIL CASAREZ on 11/27/22 1443 Diclofenac Sodium (Diclofenac Sodium) 75 Mg Tablet.dr, 75 MG PO BID Prescribed by: Carson Proctor on 12/25/212015 Divalproex Sodium (Divalproex Sodium ER) 500 Mg Tab.er.24h, 1,000 MG PO HS, (Reported) Entered as Reported by: DEVORAH RAZA on 01/10/182324 Divalproex Sodium (Divalproex Sodium ER) 250 Mg Tab.er.24h, 250 MG PO DAILY, (Reported) Entered as Reported by: DEVORAH RAZA on 01/10/182324 Docusate Sodium (Docusate Sodium) 100 Mg Capsule, 100 MG PO BID PRN for CONSTIPATION Prescribed by: VENKAT LOOMIS on 04/29/15 0834 Dulaglutide (Trulicity) 3 Mg/0.5 Ml Pen.injctr, (Reported) Entered as Reported by: PO WELSH on 03/30/21 192 Haloperidol (Haloperidol) 10 Mg Tablet, 10 MG PO HS, (Reported) Entered as Reported by: DEVORAH RAZA on 01/10/182324 Haloperidol (Haloperidol) 5 Mg Tablet, 5 MG PO DAILY, (Reported) Entered as Reported by: DEVORAH RAZA on 01/10/182324 Hydrocodone/Acetaminophen (Hydrocodone-Acetamin 5-325 mg) 5 Mg-325 Mg Tablet, 1 TAB PO Q4H PRN for PAIN-MODERATE (5-7) Prescribed by: NAZ SAUNDERS on 03/27/22 2331 Hydrocodone/Acetaminophen (Hydrocodone-Acetamin 5-325 mg) 5 Mg-325 Mg Tablet, 1 TAB PO Q4H PRN for PAIN-MODERATE (5-7) Prescribed by: LOBO MONTIEL on 09/29/22 1552 Hydrocodone/Acetaminophen (Hydrocodone-Acetamin 5-325 mg) 5 Mg-325 Mg Tablet, 1 TAB PO Q4H PRN for PAIN-MODERATE (5-7) Prescribed by: LOBO MONTIEL on 01/23/232001 Hydroxyzine HCl (Hydroxyzine HCl) 25 Mg Tablet, 25-50 MG PO DAILY, (Reported) Entered as Reported by: DEVORAH RAZA on 01/10/18 232 Hydroxyzine HCl (Hydroxyzine HCl) 50 Mg Tablet, (Reported) Entered as Reported by: PO WELSH on 03/30/21 192 Ibuprofen (Ibuprofen) 600 Mg Tablet, 600 MG PO TID PRN for PAIN, (Reported) Entered as Reported by: DEVORAH RAZA on 11/13/14 1129 Insulin Aspart (Novolog Flexpen) 300 Units/3 Ml Solution, 10 UNITS SQ AC Prescribed by: CHIN RUSH on 01/11/18 1015 Insulin Detemir (Levemir Flextouch) 100 Unit/1 Ml Insuln.pen, 40 UNIT SQ HS Prescribed by: CHIN RUSH on 01/11/18 1015 Levothyroxine Sodium (Levothyroxine Sodium) 75 Mcg Tablet, 75 MCG PO HS, (Reported) Entered as Reported by: WING LIGHT on 04/23/15 1151 Meloxicam (Meloxicam) 15 Mg Tablet, 15 MG PO DAILY Prescribed by: LOBO MONTIEL on 11/28/21 220 Metformin HCl (Metformin HCl ER) 500 Mg Tab.er.24, 500 MG PO BID, (Reported) Entered as Reported by: DEVORAH RAZA on 01/10/18 232 Methocarbamol (Methocarbamol) 750 Mg Tablet, 750 MG PO Q6-8HR Prescribed by: CONCETTA LOVING on 07/27/21 115 Naproxen (Naprosyn) 500 Mg Tablet, 500 MG PO BID Prescribed by: TRICE GALO on 08/13/18 1848 Naproxen (Naprosyn) 500 Mg Tablet, 500 MG PO BID PRN for PAIN-MODERATE (5-7) Prescribed by: CONCETTA LOVING on 07/27/21 115 Naproxen (Naproxen) 500 Mg Tablet, 500 MG PO Q12H Prescribed by: LOBO MONTIEL on 02/04/22 2108 [place], Insulin Disposable (Advocate Pen [place]) 1 Each Dis.needle, EACH ACHS, (DME) Prescribed by: CHIN RUSH on 01/11/18 1015 Omeprazole (Omeprazole) 20 Mg Capsule.dr, 20 MG PO BID Prescribed by: TRICE GALO on 11/30/212138 Paliperidone (Paliperidone ER) 9 Mg Tab.er.24, 9 MG PO DAILY, (Reported) Entered as Reported by: DEVORAH RAZA on 01/10/182324 Prednisone (Prednisone) 20 Mg Tab, 40 MG PO DAILY Prescribed by: TRICE GALO on 08/13/18 184 Prednisone (Prednisone) 20 Mg Tab, 40 MG PO DAILY Prescribed by: BASIL CASAREZ on 03/30/212005 Ranitidine HCl (Ranitidine HCl) 150 Mg Capsule, 150 MG PO BID, (Reported) Entered as Reported by: DEVORAH RAZA on 01/10/182324 Rosuvastatin Calcium (Rosuvastatin Calcium) 40 Mg Tablet, (Reported) Entered as Reported by: PO WELSH on 03/30/211925 Sucralfate (Carafate) 1 Gram Tablet, 1 GM PO QIDACHS Prescribed by: TRICE GALO on 11/30/212138 Terconazole (Terconazole) 45 Gm Cream.appl, 1 UNIT TOP BID Prescribed by: CHIN RUSH on 01/11/18 101 Tramadol HCl (Tramadol HCl) 50 Mg Tablet, 50 MG PO Q6H PRN for PAIN Prescribed by: CASSIA ORANTES on 06/02/21 151 Tramadol HCl (Ultram) 50 Mg Tablet, 50 MG PO Q6H PRN for PAIN-SEVERE (8-10) Prescribed by: CONCETTA LOVING on 07/02/212101 Tramadol HCl (Tramadol HCl) 50 Mg Tablet, 50 MG PO Q6H PRN for PAIN Prescribed by: BASIL CASAREZ on 07/03/21 1138 Tramadol HCl (Tramadol HCl) 50 Mg Tablet, 50 MG PO Q4H PRN for PAIN-MODERATE (5- 7) Prescribed by: LOBO MONTIEL on 11/28/212209 Tramadol HCl (Tramadol HCl) 50 Mg Tablet, 50 MG PO Q6H PRN for PAIN Prescribed by: BASIL CASAREZ on 11/27/22 1445 Trazodone HCl (Trazodone HCl) 150 Mg Tablet, 150 MG PO HS, (Reported) Entered as Reported by: DEVORAH RAZA on 01/10/18 2325 Triamcinolone Acet (Triamcinolone Acetonide 0.025%) 15 Gm Cr, 1 UNIT TOP BID Prescribed by: CHIN RUSH on 01/11/18 1015 Review of Systems Constitutional: see HPI EENTM: no symptoms reported Respiratory: cough, phlegm Cardiovascular: no symptoms reported Gastrointestinal: no symptoms reported Genitourinary: no symptoms reported Musculoskeletal: muscle cramps, neck pain Skin: no symptoms reported All Other Systems Reviewed Negative Unless Noted: Yes Past Blmrhyp-Rfunou-Pzvrgh Hx Immunizations Up To Date Tetanus Booster (TDap): Unknown PED Vaccines UTD: Yes First/Initial COVID19 Vaccinat: unknown Second COVID19 Vaccination [place]: unknown Third COVID19 Vaccination Date: unknown Seasonal Allergies Seasonal Allergies: No Past Medical History Surgery/Hospitalization HX: "mental issues"-pt unable to elaborate on actual diagnosis Surgeries: Yes Bladder Surgery, Hysterectomy Respiratory: Yes Asthma Cardiac: Yes High Cholesterol Neurological: No Reproductive Disorders: Yes (CPP,SUDHEER III) Female Reproductive Disorders: Endometriosis 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 OCCASIONAL DIARRHEA) Gastroesophageal Reflux Musculoskeletal: Yes Arthritis, Chronic Back Pain Endocrine: Yes (NEW DX OF DIABETES 01/09/18) Diabetes, Non-Insulin dep HEENT: No Cancer: No Psychosocial: Yes Sleep Difficulties, Anxiety, PTSD, Personality Disorder, Schizophrenia, Depression Integumentary: No Blood Disorders: No Adverse Reaction/Blood Tranf: No Family Medical History Alcoholism 19 FATHER Thyroid disease 19 MOTHER No Pertinent Family Hx Physical Exam Vital Signs Vital Signs - First Documented 01/25/23 23:55 Temp 36.6 Pulse 91 Resp 20 B/P (MAP) 141/109 (120) Capillary Refill : Less Than 3 Seconds Height, Weight, BMI Height: 5'2.00" Weight: 260lbs. 5.0oz. 117.351954vz; 32.00 BMI Method:Stated General Appearance: No Apparent Distress, WD/WN HEENT: PERRL/EOMI Neck: Normal Inspection, Supple Cardiovascular: Regular Rate, Rhythm Respiratory: Lungs Clear, Normal Breath Sounds, No Accessory Muscle Use, No Respiratory Distress Back: Normal Inspection, Other (tenderness to light palpation of the muscles of the upper thoracic spine and cervical spine; limited ROM neck) Extremity: Normal Capillary Refill, Normal Inspection, Normal Range of Motion, Non Tender Neurologic/Psychiatric: Alert, Oriented x3, No Motor/Sensory Deficits, Normal Mood/Affect Skin: Normal Color, Warm/Dry Progress/Results/Core Measures Results/Orders My Orders Orders - CASSIA ORANTES MD Ketorolac Injection (Ketorolac Injection (01/26/23 00:30) Cyclobenzaprine Tablet (Cyclobenzaprine (01/26/23 00:24) Medications Given in ED Current Medications Medications Dose Ordered Sig/Kumar Route Start Time Stop Time Status Last Admin Dose Admin Ketorolac Tromethamine 30 mg ONCE ONCE IM 01/26/23 00:30 01/26/23 00:31 DC 01/26/23 00:42 30 MG Vital Signs/I&O 01/25/23 23:55 Temp 36.6 Pulse 91 Resp 20 B/P (MAP) 141/109 (120) Blood Pressure Mean: 120 Departure Impression Primary Impression: Neck pain Disposition: 01 HOME, SELF-CARE Condition: Stable Departure-Patient Inst. Decision time for Depature: 12:22 Referrals: ANDREY RESTREPO DO (PCP/Family) Primary Care Physician Patient Instructions: Neck Pain Exercises Add. Discharge Instructions: Alternate ice and heat to the sore muscles of your neck and back. Take the ibuprofen with food 600mg every 6 hours with food. Use your muscle relaxers as directed/needed every 8 hours. Call your doctor's office tomorrow for a follow up appointment. Scripts Methocarbamol (Methocarbamol) 750 Mg Tablet 750 MG PO Q8H for Back Pain, #10 TAB Prov: CASSIA ORANTES MD 01/26/23 Copy Copies To 1: ANDREY RESTREPO KATHRYN M MD Jan 26, 2023 00:24
[2023-01-26] MEDS: CYCLOBENZAPRINE 10 MG TABLET PO STA (00:42)
[2023-01-26] MEDS: KETOROLAC INJ 30 MG/ML VIAL IM ONE (00:42)
[2023-01-26] MEDS ORDERED: METH-732 PO (00:51)
== END 2023-01-26 01:10 | disposition home or self-care (01) ==
LOC: EDUNIT# 23:49 → ER 23:50
DX: M54.2 Cervicalgia (principal); X50.1XXA Overexertion from prolonged static or awkward postures, initial encounter; Y93.01 Activity, walking, marching and hiking
CPT/HCPCS: 99284

== ENCOUNTER 2023-01-26 17:17 | Emergency (ER) | payer MEDICAID ==
[~2023-01-26] VITALS: Ht 160 cm; Wt 83.0 kg
--- NOTE | 2023-01-26 18:02 | Diagnostic Imaging Report ---
PROCEDURE: CT cervical spine without contrast. TECHNIQUE: Multiple contiguous axial images were obtained through the cervical spine without the use of intravenous contrast. Sagittal and coronal reformations were then performed. Auto Exposure Controls were utilized during the CT exam to meet ALARA standards for radiation dose reduction. INDICATION: Neck injury with pain. CT CERVICAL SPINE: Multiple contiguous axial CT images of the cervical spine were obtained with sagittal and coronal reformatted images produced. FINDINGS: The cervical curvature and alignment are within normal limits. The vertebral body heights and disc spaces are maintained without evidence of fracture or subluxation. There is no paraspinous hematoma. IMPRESSION: No CT evidence of acute cervical spinal abnormality. Dictated by: Dictated on workstation # [id number]
[2023-01-26] MEDS: ORPHENADRINE 60 MG/2 ML (NORFLEX) AMP (ED ONLY) IM ONE (18:03)
[2023-01-26] MEDS: KETOROLAC INJ 15 MG/ML VIAL IM ONE (18:03)
--- NOTE | 2023-01-26 18:09 | ED Neck-Back Pain/Injury ---
General Chief Complaint: Head/Cervical Problems Stated Complaint: NECK PAIN Nursing Triage Note: WAS WALKING YESTERDAY AND HEARD A POP IN HER NECK AND BEGAN HAVING PAIN AND TINGLING WHEN SHE TRIES TO MOVE HER NECK FROM SIDE TO SIDE. REPORTS HAVING A BULGING DISK IN HER NECK. Source of Information: Patient Exam Limitations: No Limitations History of Present Illness Date Seen by Provider: Jan 26, 2023 Time Seen by Provider: 17:41 Initial Comments 37-year-old female presents to the ER with complaint of neck pain starting last night. She states that she heard a pop in her neck and then began having pain. She was seen here in the ER last night for the same complaint. She was discharged with Robaxin, states she only took 1 dose. She took the Robaxin this morning. She took ibuprofen 600 mg this morning as well, also only took 1 dose of this. She states she has been trying ice and heat. States that none of her interventions have helped. Denies any fevers. Denies weakness in her arms and legs. Does report some tingling in her neck. Reports limited range of motion of neck. Allergies and Home Medications Allergies Coded Allergies: No Known Drug Allergies (Unverified , 01/26/23) Patient Home Medication List Home Medication List Reviewed: Yes Albuterol Sulfate (Proventil Hfa) 6.7 Gm Hfa.aer.ad, 2 PUFF IH Q4H PRN for SHORTNESS OF BREATH, (Reported) Entered as Reported by: WING LIGHT on 04/23/15 1151 Albuterol Sulfate (Ventolin Hfa) 1 Puff Puff, 2 PUFF IH Q4H Prescribed by: CASSIA ORANTES on 06/07/20 2348 Atorvastatin Calcium (Atorvastatin Calcium) 40 Mg Tablet, 40 MG PO HS, (Reported) Entered as Reported by: DEVORAH RAZA on 01/10/18 2325 Cyclobenzaprine HCl (Cyclobenzaprine HCl) 10 Mg Tablet, 10 MG PO Q8H PRN for SPASMS Prescribed by: BASIL CASAREZ on 03/30/212005 Cyclobenzaprine HCl (Cyclobenzaprine HCl) 10 Mg Tablet, 10 MG PO Q8H PRN for SPASMS Prescribed by: BASIL CASAREZ on 11/27/22 1443 Diclofenac Sodium (Diclofenac Sodium) 75 Mg Tablet.dr, 75 MG PO BID Prescribed by: Carson Proctor on 12/25/212015 Divalproex Sodium (Divalproex Sodium ER) 500 Mg Tab.er.24h, 1,000 MG PO HS, (Reported) Entered as Reported by: DEVORAH RAZA on 01/10/182324 Divalproex Sodium (Divalproex Sodium ER) 250 Mg Tab.er.24h, 250 MG PO DAILY, (Reported) Entered as Reported by: DEVORAH RAZA on 01/10/182324 Docusate Sodium (Docusate Sodium) 100 Mg Capsule, 100 MG PO BID PRN for CONSTIPATION Prescribed by: VENKAT LOOMIS on 04/29/15 0834 Dulaglutide (Trulicity) 3 Mg/0.5 Ml Pen.injctr, (Reported) Entered as Reported by: PO WELSH on 03/30/211925 Haloperidol (Haloperidol) 10 Mg Tablet, 10 MG PO HS, (Reported) Entered as Reported by: DEVORAH RAZA on 01/10/182324 Haloperidol (Haloperidol) 5 Mg Tablet, 5 MG PO DAILY, (Reported) Entered as Reported by: DEVORAH RAZA on 01/10/182324 Hydrocodone/Acetaminophen (Hydrocodone-Acetamin 5-325 mg) 5 Mg-325 Mg Tablet, 1 TAB PO Q4H PRN for PAIN-MODERATE (5-7) Prescribed by: NAZ SAUNDERS on 03/27/22 2331 Hydrocodone/Acetaminophen (Hydrocodone-Acetamin 5-325 mg) 5 Mg-325 Mg Tablet, 1 TAB PO Q4H PRN for PAIN-MODERATE (5-7) Prescribed by: LOBO MONTIEL on 09/29/22 1552 Hydrocodone/Acetaminophen (Hydrocodone-Acetamin 5-325 mg) 5 Mg-325 Mg Tablet, 1 TAB PO Q4H PRN for PAIN-MODERATE (5-7) Prescribed by: LOBO MONTIEL on 01/23/232001 Hydroxyzine HCl (Hydroxyzine HCl) 25 Mg Tablet, 25-50 MG PO DAILY, (Reported) Entered as Reported by: DEVORAH RAZA on 01/10/182324 Hydroxyzine HCl (Hydroxyzine HCl) 50 Mg Tablet, (Reported) Entered as Reported by: PO WELSH on 03/30/21 1926 Ibuprofen (Ibuprofen) 600 Mg Tablet, 600 MG PO TID PRN for PAIN, (Reported) Entered as Reported by: DEVORAH RAZA on 11/13/14 1129 Insulin Aspart (Novolog Flexpen) 300 Units/3 Ml Solution, 10 UNITS SQ AC Prescribed by: CHIN RUSH on 01/11/18 1015 Insulin Detemir (Levemir Flextouch) 100 Unit/1 Ml Insuln.pen, 40 UNIT SQ HS Prescribed by: CHIN RUSH on 01/11/18 1015 Levothyroxine Sodium (Levothyroxine Sodium) 75 Mcg Tablet, 75 MCG PO HS, (Reported) Entered as Reported by: WING LIGHT on 04/23/15 1151 Meloxicam (Meloxicam) 15 Mg Tablet, 15 MG PO DAILY Prescribed by: LOBO MONTIEL on 11/28/21 220 Metformin HCl (Metformin HCl ER) 500 Mg Tab.er.24, 500 MG PO BID, (Reported) Entered as Reported by: DEVORAH RAZA on 01/10/18 2325 Methocarbamol (Methocarbamol) 750 Mg Tablet, 750 MG PO Q6-8HR Prescribed by: CONCETTA LOVING on 07/27/21 1157 Methocarbamol (Methocarbamol) 750 Mg Tablet, 750 MG PO Q8H Prescribed by: CASSIA ORANTES on 01/26/23 0051 Naproxen (Naprosyn) 500 Mg Tablet, 500 MG PO BID Prescribed by: TRICE GALO on 08/13/18 1848 Naproxen (Naprosyn) 500 Mg Tablet, 500 MG PO BID PRN for PAIN-MODERATE (5-7) Prescribed by: CONCETTA LOVING on 07/27/21 1157 Naproxen (Naproxen) 500 Mg Tablet, 500 MG PO Q12H Prescribed by: LOBO MONTIEL on 02/04/22 210 Jenkinjones, Insulin Disposable (Advocate Pen Jenkinjones) 1 Each Dis.needle, EACH ACHS, (DME) Prescribed by: CHIN RUSH on 01/11/18 1015 Omeprazole (Omeprazole) 20 Mg Capsule.dr, 20 MG PO BID Prescribed by: TRICE GALO on 11/30/212138 Paliperidone (Paliperidone ER) 9 Mg Tab.er.24, 9 MG PO DAILY, (Reported) Entered as Reported by: DEVORAH RAZA on 01/10/182324 Prednisone (Prednisone) 20 Mg Tab, 40 MG PO DAILY Prescribed by: TRICE GALO on 08/13/18 184 Prednisone (Prednisone) 20 Mg Tab, 40 MG PO DAILY Prescribed by: BASIL CASAREZ on 03/30/212005 Ranitidine HCl (Ranitidine HCl) 150 Mg Capsule, 150 MG PO BID, (Reported) Entered as Reported by: DEVORAH RAZA on 01/10/182324 Rosuvastatin Calcium (Rosuvastatin Calcium) 40 Mg Tablet, (Reported) Entered as Reported by: PO WELSH on 03/30/211925 Sucralfate (Carafate) 1 Gram Tablet, 1 GM PO QIDACHS Prescribed by: TRICE GALO on 11/30/212138 Terconazole (Terconazole) 45 Gm Cream.appl, 1 UNIT TOP BID Prescribed by: CHIN RUSH on 01/11/18 1015 Tramadol HCl (Tramadol HCl) 50 Mg Tablet, 50 MG PO Q6H PRN for PAIN Prescribed by: CASSIA ORANTES on 06/02/21 151 Tramadol HCl (Ultram) 50 Mg Tablet, 50 MG PO Q6H PRN for PAIN-SEVERE (8-10) Prescribed by: CONCETTA LOVING on 07/02/212101 Tramadol HCl (Tramadol HCl) 50 Mg Tablet, 50 MG PO Q6H PRN for PAIN Prescribed by: BASIL CASAREZ on 07/03/21 1138 Tramadol HCl (Tramadol HCl) 50 Mg Tablet, 50 MG PO Q4H PRN for PAIN-MODERATE (5- 7) Prescribed by: LOBO MONTIEL on 11/28/21 2210 Tramadol HCl (Tramadol HCl) 50 Mg Tablet, 50 MG PO Q6H PRN for PAIN Prescribed by: BASIL CASAREZ on 11/27/22 1445 Trazodone HCl (Trazodone HCl) 150 Mg Tablet, 150 MG PO HS, (Reported) Entered as Reported by: DEVORAH RAZA on 01/10/182324 Triamcinolone Acet (Triamcinolone Acetonide 0.025%) 15 Gm Cr, 1 UNIT TOP BID Prescribed by: CHIN RUSH on 01/11/18 1015 Review of Systems Constitutional: see HPI Past Gjdwwri-Fjwlwp-Viwrbe Hx Patient Social History Tobacco Use?: Yes Tobacco type used: Cigarettes Smoking Status: Current Everyday Smoker Use of E-Cig and/or Vaping dev: No Substance use?: No Alcohol Use?: No Immunizations Up To Date Tetanus Booster (TDap): Unknown PED Vaccines UTD: Yes Influenza Vaccine Up-to-Date: Yes; Up-to-Date First/Initial COVID19 Vaccinat: "SHOTS" Second COVID19 Vaccination [place]: unknown Third COVID19 Vaccination Date: unknown Seasonal Allergies Seasonal Allergies: No Past Medical History Surgery/Hospitalization HX: HTN, NIDDM LAPAROSCOPIC HYSTER, BLADDER SURGERY AND RECTAL REPAIR. 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 OCCASIONAL DIARRHEA) Gastroesophageal Reflux Musculoskeletal: Yes Arthritis, Chronic Back Pain Endocrine: Yes (NEW DX OF DIABETES 01/09/18) Diabetes, Non-Insulin dep HEENT: No Cancer: No Psychosocial: Yes Sleep Difficulties, Anxiety, PTSD, Personality Disorder, Schizophrenia, Depression Integumentary: No Blood Disorders: No Adverse Reaction/Blood Tranf: No Family Medical History Alcoholism 19 FATHER Thyroid disease 19 MOTHER No Pertinent Family Hx Physical Exam Vital Signs Vital Signs - First Documented 01/26/23 17:25 Temp 36.8 Pulse 108 Resp 18 B/P (MAP) 144/98 (113) Pulse Ox 97 O2 Delivery Room Air Capillary Refill : Less Than 3 Seconds Height, Weight, BMI Height: 5'2.00" Weight: 260lbs. 5.0oz. 117.585491qf; 32.00 BMI Method:Stated General Appearance: No Apparent Distress, WD/WN Neck: Full Range of Motion, Supple, Tender Lateral, Tender Midline Cardiovascular: Regular Rate, Rhythm Respiratory: Lungs Clear, Normal Breath Sounds, No Accessory Muscle Use, No Respiratory Distress Extremity: Normal Inspection, Normal Range of Motion Neurologic/Psychiatric: Alert, Normal Mood/Affect Skin: Normal Color, Warm/Dry Progress/Results/Core Measures Results/Orders My Orders Orders - RAMEZ KEVIN APRN Ct Cervical Spine Wo (01/26/23 17:44) Ketorolac Injection (Ketorolac Injection (01/26/23 17:45) Orphenadrine Inj (Ed Only) (Norflex Inje (01/26/23 17:45) Medications Given in ED Current Medications Medications Dose Ordered Sig/Kumar Route Start Time Stop Time Status Last Admin Dose Admin Ketorolac Tromethamine 15 mg ONCE ONCE IM 01/26/23 17:45 01/26/23 17:46 DC 01/26/23 18:03 15 MG Orphenadrine Citrate 60 mg ONCE ONCE IM 01/26/23 17:45 01/26/23 17:46 DC 01/26/23 18:03 60 MG Vital Signs/I&O 01/26/23 01/26/23 17:25 18:30 Temp 36.8 36.8 Pulse 108 102 Resp 18 18 B/P (MAP) 144/98 (113) 140/96 Pulse Ox 97 98 O2 Delivery Room Air Room Air Blood Pressure Mean: 113 Progress Progress Note : Progress Note Patient seen and evaluated, resting in recliner, no acute distress. Patient reported limited range of motion of neck, but when I was to the side of her, she turned her neck and look backward at me without difficulty. Will CT of her neck since this is her second visit. Toradol and Norflex ordered. 1823 CT reviewed. No acute abnormality of the C-spine. Results discussed with patient. Patient instructed to continue taking ibuprofen [id number] and her Robaxin as prescribed. Discharge instructions and return precautions provided. Diagnostic Imaging Diagonstic Imaging: CT Plain Films/CT/US/NM/MRI: c-spine Comments [facility]. [place], [place] NAME: DHRUV JIMÉNEZ Jim [facility] REC#: [id number] PT STATUS: REG ER : 1985 PHYSICIAN: RAMEZ KEVIN APRN ADMIT DATE: 01/26/23/ER Draft Date of Exam:01/26/23 CT CERVICAL SPINE WO PROCEDURE: CT cervical spine without contrast. TECHNIQUE: Multiple contiguous axial images were obtained through the cervical spine without the use of intravenous contrast. Sagittal and coronal reformations were then performed. Auto Exposure Controls were utilized during the CT exam to meet ALARA standards for radiation dose reduction. INDICATION: Neck injury with pain. CT CERVICAL SPINE: Multiple contiguous axial CT images of the cervical spine were obtained with sagittal and coronal reformatted images produced. FINDINGS: The cervical curvature and alignment are within normal limits. The vertebral body heights and disc spaces are maintained without evidence of fracture or subluxation. There is no paraspinous hematoma. IMPRESSION: No CT evidence of acute cervical spinal abnormality. Dictated on workstation # [id number] Dict: 01/26/23 1759 Trans: 01/26/23 1802 [id number] Interpreted by: KEISHA LUONG MD Electronically signed by: Departure Impression Primary Impression: Neck pain Disposition: 01 HOME, SELF-CARE Condition: Stable Departure-Patient Inst. Decision time for Depature: 18:24 Referrals: ANDREY RESTREPO DO (PCP/Family) Primary Care Physician Patient Instructions: Neck Pain ED Add. Discharge Instructions: Take 600 mg of ibuprofen every 6 hours with food as needed for pain. You should take it [id number] for the next couple of days to help with inflammation. Continue taking your Robaxin, you may take it every 8 hours. Try ice or heat, whichever feels better. Return for any new, concerning, or worsening symptoms. All discharge instructions reviewed with patient and/or family. Voiced understanding. RAMEZ KEVIN APRN Jan 26, 2023 18:09
[2023-01-26 18:30] VITALS: BP 140/96
== END 2023-01-26 18:30 | disposition home or self-care (01) ==
LOC: EDUNIT# 17:17 → ER 17:19
DX: M54.2 Cervicalgia (principal); F17.210 Nicotine dependence, cigarettes, uncomplicated; X50.1XXA Overexertion from prolonged static or awkward postures, initial encounter
CPT/HCPCS: 72125; 99284

== ENCOUNTER 2023-04-11 17:45 | Observation (INO) | payer MEDICAID ==
[~2023-04-11] VITALS: Ht 160 cm; Wt 84.4 kg
[~2023-04-11 17:45] MED LIST changes: +PENI500T PO; -ROSU40TA23; +ROSU40TA23 PO
[2023-04-11] MEDS ORDERED: NS IV 1000 ML 1,000 ML IV STA (17:53)
[2023-04-11 18:04] LABS: BASOPHILS % (AUTO) 0 % (0-10); EOSINOPHILS % (AUTO) 0 % (0-10); HEMATOCRIT 29 % (35-52); HEMOGLOBIN 10.1 g/dL (11.5-16.0); LYMPHOCYTES # (AUTO) 1.5 10^3/uL (1.0-4.0); LYMPHOCYTES % (AUTO) 7 % (12-44); MEAN CORPUSCULAR HEMOGLOBIN 31 pg (25-34); MEAN CORPUSCULAR HGB CONC 35 g/dL (32-36); MEAN CORPUSCULAR VOLUME 88 fL (80-99); MEAN PLATELET VOLUME 9.9 fL (9.0-12.2); MONOCYTES # (AUTO) 3.4 10^3/uL (0.0-1.0); MONOCYTES % (AUTO) 17 % (0-12); NEUTROPHILS % (AUTO) 75 % (42-75); PLATELET COUNT 249 10^3/uL (130-400); WHITE BLOOD COUNT 20.1 10^3/uL (4.3-11.0)
[2023-04-11 18:14] LABS: ALBUMIN 3.3 GM/DL (3.2-4.5)
[2023-04-11 18:16] LABS: CALCIUM 9.3 MG/DL (8.5-10.1)
[2023-04-11 18:17] LABS: TOTAL PROTEIN 6.8 GM/DL (6.4-8.2)
[2023-04-11 18:19] LABS: BILIRUBIN,TOTAL 0.2 MG/DL (0.1-1.0)
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
--- NOTE | 2023-04-11 18:25 | Diagnostic Imaging Report ---
INDICATION: Fever and cough. Time of Exam: 6:21 PM Comparison is made with prior chest of 11/30/2021. FINDINGS: The heart size is normal. The pulmonary vascularity is unremarkable. The lungs are clear. No infiltrate, effusion or pneumothorax is detected. IMPRESSION: No acute cardiopulmonary process is detected. Dictated by: Dictated on workstation # [id number]
[2023-04-11] MEDS ORDERED: ACETAMINOPHEN 500 MG TABLET PO PRN (18:30)
[2023-04-11 18:41] LABS: BAND NEUTROPHILS 4 %; INR 1.1 (0.8-1.4); LYMPHOCYTES % (MANUAL) 7 %; MONOCYTES % (MANUAL) 13 %; NEUTROPHILS % (MANUAL) 76 %; PROTHROMBIN TIME PATIENT 14.5 SEC (12.2-14.7); RBC MORPH NORMAL
[2023-04-11 18:46] LABS: CLARITY,URINE SLIGHTLY CLOUDY; COLOR,URINE YELLOW; GLUCOSE, URINE (UA) NEGATIVE (NEGATIVE); PH,URINE 6.5 (5-9); PROTEIN,URINE 3+ (NEGATIVE)
[2023-04-11 18:47] LABS: BACTERIA,URINE MODERATE /HPF; BILIRUBIN,URINE NEGATIVE (NEGATIVE); KETONES,URINE NEGATIVE (NEGATIVE); LEUKOCYTE ESTERASE ,URINE 1+ (NEGATIVE); NITRITE,URINE NEGATIVE (NEGATIVE); WBC,URINE 25-50 /HPF
[2023-04-11] MEDS ORDERED: cefTRIAXone IV/IM 1,000 MG in NS (IVPB) 50 ML 50 ML IV ONE (19:15)
--- NOTE | 2023-04-11 19:54 | Diagnostic Imaging Report ---
PROCEDURE: CT urinary tract, rule out kidney stone. TECHNIQUE: Multiple contiguous axial images were obtained through the abdomen and pelvis without the use of intravenous contrast. Auto Exposure Controls were utilized during the CT exam to meet ALARA standards for radiation dose reduction. INDICATION: There is a small amount of right pleural fluid with mild basilar atelectasis and/or pneumonitis, bilaterally. Unenhanced images of liver and spleen reveal no focal abnormality although there is prominence of the left hepatic lobe. Gallbladder is partially contracted but otherwise unremarkable. There is no evidence of pancreatic or adrenal gland abnormality. Unenhanced images of the kidneys reveal no evidence of stone. There is mild right perinephric edema and/or inflammation. No definite ureteric stone is seen. There is a moderate amount of stool in the right colon. There is no evidence of appendiceal region inflammation. There is no free fluid. No organized fluid collection is identified to indicate abscess. Unopacified bladder is unremarkable. IMPRESSION: Mild right renal edema or inflammation could be related to bacterial pyelonephritis and correlation with urinalysis would be of use. Otherwise, no acute abnormality is detected. Dictated by: Dictated on workstation # [id number]
[2023-04-11 20:19] VITALS: BP 115/58
[2023-04-11] MEDS ORDERED: MELATONIN 3 MG TABLET PO PRN (20:30)
[2023-04-11] MEDS ORDERED: diphenhydrAMINE INJ 50 MG/ML VIAL IVP PRN (20:30)
[2023-04-11] MEDS ORDERED: LACTULOSE SYRUP 10GM/15ML 30ML UDC PO PRN (20:30)
[2023-04-11] MEDS ORDERED: MILK OF MAGNESIA 400 MG/5 ML 30 ML UDC PO PRN (20:30)
[2023-04-11] MEDS ORDERED: diphenhydrAMINE 25 MG TABLET PO PRN (20:30)
[2023-04-11] MEDS ORDERED: BISACODYL 10 MG SUPPOSITORY PR PRN (20:30)
[2023-04-11] MEDS ORDERED: ANTACID SUSPENSION 30 ML UDC PO PRN (20:30)
[2023-04-11] MEDS ORDERED: ONDANSETRON INJECTION 4 MG/2 ML (SDV) IV PRN (20:30)
[2023-04-11] MEDS ORDERED: hydrALAZINE INJECTION 20 MG/ML VIAL IV PRN (20:30)
[2023-04-11] MEDS ORDERED: ONDANSETRON 4 MG ORAL DISSOLVE TABLET PO PRN (20:30)
[2023-04-11] MEDS ORDERED: CALCIUM CARBONATE 500 MG CHEW TABLET PO PRN (20:30)
[2023-04-11 20:42] VITALS: BP 115/58
[2023-04-11] MEDS: DOCUSATE SODIUM 100 MG CAPSULE PO SCH (21:31)
[2023-04-11] MEDS: inSUlin ASPART 1 UNIT/0.01 ML (PER UNIT) SC SCH (21:31)
[2023-04-11] MEDS: SENNOSIDES 8.6 MG TABLET PO SCH (21:31)
[2023-04-11] MEDS: KETOROLAC INJ 15 MG/ML VIAL IV PRN (21:42)
[2023-04-11] MEDS: NS IV 1000 ML 1,000 ML IV SCH (21:42)
[2023-04-11] MEDS: oxyCODONE IMMEDIATE RELEASE 5 MG TABLET PO PRN (22:28)
[2023-04-12] VITALS (7 sets, daily range): BP systolic 98–131; BP diastolic 50–75
[2023-04-12] MEDS: RT-ALBUTEROL SULF 2.5 MG/3 ML PRE-MIX VIAL INH PRN ×3 (02:03→09:06)
[2023-04-12] MEDS: LORazepam 0.5 MG TABLET PO PRN ×4 (02:32→23:35)
[2023-04-12] MEDS: oxyCODONE IMMEDIATE RELEASE 5 MG TABLET PO PRN ×4 (02:32→20:05)
[2023-04-12] MEDS: ACETAMINOPHEN 325 MG TABLET PO PRN ×3 (02:41→23:35)
[2023-04-12] MEDS: KETOROLAC INJ 15 MG/ML VIAL IV PRN ×3 (04:18→15:35)
[2023-04-12] MEDS: NS IV 1000 ML 1,000 ML IV SCH ×3 (04:18→15:34)
[2023-04-12] MEDS: inSUlin ASPART 1 UNIT/0.01 ML (PER UNIT) SC SCH ×4 (05:05→21:22)
[2023-04-12 05:28] LABS: BASOPHILS # (AUTO) 0.1 10^3/uL (0.0-0.1); BASOPHILS % (AUTO) 0 % (0-10); EOSINOPHILS % (AUTO) 0 % (0-10); HEMATOCRIT 25 % (35-52); HEMOGLOBIN 8.6 g/dL (11.5-16.0); LYMPHOCYTES # (AUTO) 1.8 10^3/uL (1.0-4.0); LYMPHOCYTES % (AUTO) 9 % (12-44); MEAN CORPUSCULAR HEMOGLOBIN 31 pg (25-34); MEAN CORPUSCULAR HGB CONC 34 g/dL (32-36); MEAN CORPUSCULAR VOLUME 89 fL (80-99); MEAN PLATELET VOLUME 9.7 fL (9.0-12.2); MONOCYTES # (AUTO) 3.6 10^3/uL (0.0-1.0); MONOCYTES % (AUTO) 18 % (0-12); NEUTROPHILS # (AUTO) 14.8 10^3/uL (1.8-7.8); NEUTROPHILS % (AUTO) 72 % (42-75); PLATELET COUNT 242 10^3/uL (130-400); WHITE BLOOD COUNT 20.6 10^3/uL (4.3-11.0)
[2023-04-12 05:32] LABS: POTASSIUM 3.3 MMOL/L (3.6-5.0)
[2023-04-12 05:33] LABS: CALCIUM 8.5 MG/DL (8.5-10.1)
[2023-04-12 05:35] LABS: TOTAL PROTEIN 5.8 GM/DL (6.4-8.2)
[2023-04-12 05:36] LABS: BILIRUBIN,TOTAL 0.2 MG/DL (0.1-1.0)
[2023-04-12 05:38] LABS: CREATININE SERUM 1.04 MG/DL (0.60-1.30)
[2023-04-12] MEDS: SENNOSIDES 8.6 MG TABLET PO SCH ×2 (08:19→20:02)
[2023-04-12] MEDS: DOCUSATE SODIUM 100 MG CAPSULE PO SCH ×2 (08:20→20:02)
--- NOTE | 2023-04-12 08:41 | History & Physical ---
BIBI TORRES 04/12/23 0841: History of Present Illness History of Present Illness Reason for visit/HPI Leigha is a 38 year old female with a history of PTSD, depression, T2D, borderline personality disorder, and schizoaffective personality who presents with a primary complaint of a fever, body aches, and right sided back pain. Patient says the symptoms started 2 days ago and she was not doing anything in particular when the pain started. She denies any shortness of breath or chest pain right now. Patient says she is currently having pain on urination. Patient is also stating that they have abdominal pain that is constant- 12/26, nothing has helped or made it worse. Date of Admission Apr 11, 2023 at 20:08 I consulted on this patient on 04/12/23 08:36 Attending Physician Mana Levi Np Admitting Physician Admitting Physician: Sue Rush DO Attending Physician: Sue uRsh DO Consult Allergies and Home Medications Allergies Coded Allergies: No Known Drug Allergies (Unverified , 01/26/23) Patient Home Medication List Albuterol Sulfate (Proventil Hfa) 6.7 Gm Hfa.aer.ad, 2 PUFF IH Q4H PRN for SHORTNESS OF BREATH, (Reported) Entered as Reported by: WING LIGHT on 04/23/15 1151 Last Action: Continued Buspirone HCl (Buspirone HCl) 5 Mg Tablet, 5 MG PO BID PRN for ANXIETY, (Reported) Entered as Reported by: ANDREY LOONEY on 04/12/23936 Last Action: Continued Cetirizine HCl (Cetirizine HCl) 10 Mg Tablet, 10 MG PO HS, (Reported) Entered as Reported by: ANDREY LOONEY on 04/12/23936 Last Action: Converted Dicyclomine HCl (Dicyclomine HCl) 10 Mg Capsule, 10 MG PO DAILY, (Reported) Entered as Reported by: ANDREY LOONEY on 04/12/23936 Last Action: Continued Divalproex Sodium (Divalproex Sodium ER) 500 Mg Tab.er.24h, 1,000 MG PO HS, (Reported) Entered as Reported by: DEVORAH RAZA on 01/10/18 5777 Last Action: Converted Haloperidol (Haloperidol) 10 Mg Tablet, 10 MG PO HS, (Reported) Entered as Reported by: DEVORAH RAZA on 01/10/182324 Last Action: Converted Haloperidol (Haloperidol) 5 Mg Tablet, 5 MG PO DAILY, (Reported) Entered as Reported by: DEVORAH RAZA on 01/10/182324 Last Action: Continued Ibuprofen (Ibuprofen) 800 Mg Tablet, 800 MG PO TID PRN for PAIN-MILD (1-4), (Reported) Entered as Reported by: ANDREY LOONEY on 04/12/23936 Last Action: Continued Lisinopril (Lisinopril) 10 Mg Tablet, 10 MG PO HS, (Reported) Entered as Reported by: ANDREY LOONEY on 04/12/23936 Last Action: Continued Metformin HCl (Metformin HCl ER) 500 Mg Tab.er.24h, 1,000 MG PO BID, (Reported) Entered as Reported by: ANDREY LOONEY on 04/12/23936 Last Action: Continued Mirtazapine (Mirtazapine) 30 Mg Tablet, 30 MG PO HS, (Reported) Entered as Reported by: ANDREY LOONEY on 04/12/23936 Last Action: Converted Paliperidone (Paliperidone ER) 9 Mg Tab.er.24, 9 MG PO DAILY, (Reported) Entered as Reported by: DEVORAH RAZA on 01/10/182324 Last Action: Converted Paliperidone (Paliperidone ER) 3 Mg Tab.er.24, 3 MG PO HS, (Reported) Entered as Reported by: ANDREY LOONEY on 04/12/23936 Last Action: Converted Rosuvastatin Calcium (Rosuvastatin Calcium) 40 Mg Tablet, 40 MG PO HS, (Reported) Entered as Reported by: PO WELSH on 03/30/211925 Last Action: Converted Discontinued Medications Albuterol Sulfate (Ventolin Hfa) 1 Puff Puff, 2 PUFF IH Q4H Discontinued Reason: No Longer Taking Prescribed by: CASSIA ORANTES on 06/07/209 Last Action: Discontinued Atorvastatin Calcium (Atorvastatin Calcium) 40 Mg Tablet, 40 MG PO HS, (Reported) Discontinued Reason: No Longer Taking Entered as Reported by: DEVORAH RAZA on 01/10/182324 Last Action: Discontinued Cyclobenzaprine HCl (Cyclobenzaprine HCl) 10 Mg Tablet, 10 MG PO Q8H PRN for SPASMS Discontinued Reason: No Longer Taking Prescribed by: BASLI CASAREZ on 03/30/212005 Last Action: Discontinued Cyclobenzaprine HCl (Cyclobenzaprine HCl) 10 Mg Tablet, 10 MG PO Q8H PRN for SPASMS Discontinued Reason: No Longer Taking Prescribed by: BASIL CASAREZ on 11/27/22 1443 Last Action: Discontinued Diclofenac Sodium (Diclofenac Sodium) 75 Mg Tablet.dr, 75 MG PO BID Discontinued Reason: No Longer Taking Prescribed by: Carson Proctor on 12/25/212015 Last Action: Discontinued Divalproex Sodium (Divalproex Sodium ER) 250 Mg Tab.er.24h, 250 MG PO DAILY, (R eported) Discontinued Reason: No Longer Taking Entered as Reported by: DEVORAH RAZA on 01/10/18 2325 Last Action: Discontinued Docusate Sodium (Docusate Sodium) 100 Mg Capsule, 100 MG PO BID PRN for CONSTIPATION Discontinued Reason: No Longer Taking Prescribed by: VENKAT LOOMIS on 04/29/15 0834 Last Action: Discontinued Dulaglutide (Trulicity) 3 Mg/0.5 Ml Pen.injctr, (Reported) Discontinued Reason: No Longer Taking Entered as Reported by: PO WELSH on 03/30/21 1926 Last Action: Discontinued Hydrocodone/Acetaminophen (Hydrocodone-Acetamin 5-325 mg) 5 Mg-325 Mg Tablet, 1 TAB PO Q4H PRN for PAIN-MODERATE (5-7) Discontinued Reason: No Longer Taking Prescribed by: NAZ SAUNDERS on 03/27/22 2331 Last Action: Discontinued Hydrocodone/Acetaminophen (Hydrocodone-Acetamin 5-325 mg) 5 Mg-325 Mg Tablet, 1 TAB PO Q4H PRN for PAIN-MODERATE (5-7) Discontinued Reason: No Longer Taking Prescribed by: LOBO MONTIEL on 09/29/22 1552 Last Action: Discontinued Hydrocodone/Acetaminophen (Hydrocodone-Acetamin 5-325 mg) 5 Mg-325 Mg Tablet, 1 TAB PO Q4H PRN for PAIN-MODERATE (5-7) Discontinued Reason: No Longer Taking Prescribed by: LOBO MONTIEL on 01/23/232001 Last Action: Discontinued Hydroxyzine HCl (Hydroxyzine HCl) 25 Mg Tablet, 25-50 MG PO DAILY, (Reported) Discontinued Reason: No Longer Taking Entered as Reported by: DEVORAH RAZA on 01/10/182324 Last Action: Discontinued Hydroxyzine HCl (Hydroxyzine HCl) 50 Mg Tablet, (Reported) Discontinued Reason: No Longer Taking Entered as Reported by: PO WELSH on 03/30/21 1926 Last Action: Discontinued Ibuprofen (Ibuprofen) 600 Mg Tablet, 600 MG PO TID PRN for PAIN, (Reported) Discontinued Reason: No Longer Taking Entered as Reported by: DEVORAH RAZA on 11/13/14 1129 Last Action: Discontinued Insulin Aspart (Novolog Flexpen) 300 Units/3 Ml Solution, 10 UNITS SQ AC Discontinued Reason: No Longer Taking Prescribed by: SUE RUSH on 01/11/18 101 Last Action: Discontinued Insulin Detemir (Levemir Flextouch) 100 Unit/1 Ml Insuln.pen, 40 UNIT SQ HS Discontinued Reason: No Longer Taking Prescribed by: SUE RUSH on 01/11/18 1015 Last Action: Discontinued Levothyroxine Sodium (Levothyroxine Sodium) 75 Mcg Tablet, 75 MCG PO HS, (Reported) Discontinued Reason: No Longer Taking Entered as Reported by: WING LIGHT on 04/23/15 1151 Last Action: Discontinued Meloxicam (Meloxicam) 15 Mg Tablet, 15 MG PO DAILY Discontinued Reason: No Longer Taking Prescribed by: LOBO MONTIEL on 11/28/21 2209 Last Action: Discontinued Metformin HCl (Metformin HCl ER) 500 Mg Tab.er.24, 500 MG PO BID, (Reported) Discontinued Reason: No Longer Taking Entered as Reported by: DEVORAH RAZA on 01/10/182324 Last Action: Discontinued Methocarbamol (Methocarbamol) 750 Mg Tablet, 750 MG PO Q6-8HR Discontinued Reason: No Longer Taking Prescribed by: CONCETTA LOVING on 07/27/21 1157 Last Action: Discontinued Methocarbamol (Methocarbamol) 750 Mg Tablet, 750 MG PO Q8H Discontinued Reason: No Longer Taking Prescribed by: CASSIA ORANTES on 01/26/23 0051 Last Action: Discontinued Naproxen (Naprosyn) 500 Mg Tablet, 500 MG PO BID Discontinued Reason: No Longer Taking Prescribed by: TRICE GALO on 08/13/181847 Last Action: Discontinued Naproxen (Naprosyn) 500 Mg Tablet, 500 MG PO BID PRN for PAIN-MODERATE (5-7) Discontinued Reason: No Longer Taking Prescribed by: CONCETTA LOVING on 07/27/21 1157 Last Action: Discontinued Naproxen (Naproxen) 500 Mg Tablet, 500 MG PO Q12H Discontinued Reason: No Longer Taking Prescribed by: LOBO MONTIEL on 02/04/222107 Last Action: Discontinued Tibbie, Insulin Disposable (Advocate Pen Tibbie) 1 Each Dis.needle, EACH MC ACHS, (DME) Discontinued Reason: No Longer Taking Prescribed by: SUE RUSH on 01/11/18 101 Last Action: Discontinued Omeprazole (Omeprazole) 20 Mg Capsule.dr, 20 MG PO BID Discontinued Reason: No Longer Taking Prescribed by: TRICE GALO on 11/30/212138 Last Action: Discontinued Penicillin V Potassium (Penicillin V Potassium) 500 Mg Tablet, 500 MG PO QID Discontinued Reason: No Longer Taking Prescribed by: CASSIA ORANTES on 03/10/232306 Last Action: Discontinued Prednisone (Prednisone) 20 Mg Tab, 40 MG PO DAILY Discontinued Reason: No Longer Taking Prescribed by: TRICE GALO on 08/13/181847 Last Action: Discontinued Prednisone (Prednisone) 20 Mg Tab, 40 MG PO DAILY Discontinued Reason: No Longer Taking Prescribed by: BASIL CASAREZ on 03/30/212005 Last Action: Discontinued Ranitidine HCl (Ranitidine HCl) 150 Mg Capsule, 150 MG PO BID, (Reported) Discontinued Reason: No Longer Taking Entered as Reported by: DEVORAH RAZA on 01/10/18 2325 Last Action: Discontinued Sucralfate (Carafate) 1 Gram Tablet, 1 GM PO QIDACHS Discontinued Reason: No Longer Taking Prescribed by: TRICE GALO on 11/30/212138 Last Action: Discontinued Terconazole (Terconazole) 45 Gm Cream.appl, 1 UNIT TOP BID Discontinued Reason: No Longer Taking Prescribed by: SUE RUSH on 01/11/18 1015 Last Action: Discontinued Tramadol HCl (Tramadol HCl) 50 Mg Tablet, 50 MG PO Q6H PRN for PAIN Discontinued Reason: No Longer Taking Prescribed by: CASSIA ORANTES on 06/02/21 1519 Last Action: Discontinued Tramadol HCl (Ultram) 50 Mg Tablet, 50 MG PO Q6H PRN for PAIN-SEVERE (8-10) Discontinued Reason: No Longer Taking Prescribed by: CONCETTA LOVING on 07/02/21 2102 Last Action: Discontinued Tramadol HCl (Tramadol HCl) 50 Mg Tablet, 50 MG PO Q6H PRN for PAIN Discontinued Reason: No Longer Taking Prescribed by: BASIL CASAREZ on 07/03/21 1138 Last Action: Discontinued Tramadol HCl (Tramadol HCl) 50 Mg Tablet, 50 MG PO Q4H PRN for PAIN-MODERATE (5- 7) Discontinued Reason: No Longer Taking Prescribed by: LOBO MONTIEL on 11/28/21 2210 Last Action: Discontinued Tramadol HCl (Tramadol HCl) 50 Mg Tablet, 50 MG PO Q6H PRN for PAIN Discontinued Reason: No Longer Taking Prescribed by: BASIL CASAREZ on 11/27/22 1445 Last Action: Discontinued Trazodone HCl (Trazodone HCl) 150 Mg Tablet, 150 MG PO HS, (Reported) Discontinued Reason: No Longer Taking Entered as Reported by: DEVORAH RAZA on 01/10/18 2325 Last Action: Discontinued Triamcinolone Acet (Triamcinolone Acetonide 0.025%) 15 Gm Cr, 1 UNIT TOP BID Discontinued Reason: No Longer Taking Prescribed by: SUE RUSH on 01/11/18 1015 Last Action: Discontinued Past Xqvrrol-Uwijpb-Zmivlx Hx Patient Social History Tobacco Use?: Yes Tobacco type used: Cigarettes Smoking Status: Current Everyday Smoker Use of E-Cig and/or Vaping dev: No Substance use?: No Alcohol Use?: No Pt feels they are or have been: No Immunizations Up To Date First/Initial COVID19 Vaccinat: "SHOTS" Second COVID19 Vaccination Corbin: unknown Tetanus Booster (TDap): Unknown PED Vaccines UTD: Yes Seasonal Allergies Seasonal Allergies: No Current Status status: No status: No Advance Directives: Yes Advance Directive Location: Family to bring in copy Communicates: Verbally Primary Language: [place] Preferred Spoken Language: [place] Is interpretation needed?: No Past Medical History Surgeries: Bladder Surgery, Hysterectomy Asthma 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 Cholesterol 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 UTI (peds) Gastroesophageal Reflux Arthritis, Chronic Back Pain Diabetes, Non-Insulin dep Sleep Difficulties, Anxiety, PTSD, Personality Disorder, Schizophrenia, Depression Blood Disorders: No Adverse Reaction/Blood Tranf: No Family Medical History Alcoholism 19 FATHER Thyroid disease 19 MOTHER No Pertinent Family Hx Review of Systems Constitutional: fever EENTM: No blurred vision, No double vision Respiratory: No cough Cardiovascular: No chest pain Gastrointestinal: RUQ, RLQ Genitourinary: dysuria Skin: No change in color, No change in hair/nails Psychiatric/Neurological: Depressed, Other (PTSD, borderline) Physical Exam Vital Signs Vital Signs - First Documented 04/11/23 04/11/23 17:47 20:42 Temp 37.5 Pulse 128 Resp 21 B/P (MAP) 145/72 (96) Pulse Ox 94 O2 Delivery Room Air FiO2 21 Capillary Refill : Less Than 3 Seconds Height, Weight, BMI Height: 5'2.00" Weight: 260lbs. 5.0oz. [id number]; 32.96 BMI Method:Stated Assessment/Plan Assessment and Plan Assessment: Sepsis Pyelonephritis Hypokalemia T2D History of PTSD Anxiety Borderline personality disorder Abdominal pain Plan: IV Fluids IV Antibiotics Replace Electrolytes Gallbladder US Encourage ambulation SUE RUSH DO 04/12/232042: History of Present Illness History of Present Illness Reason for visit/HPI CC: Sepsis with acute pyelonephritis HPI: This is a 38yoWF clinic patient of Fontanelle who has a h/o mental illness and mother is her decision maker who presented to the ER with fever and flank pain and was found to have pyelo without stones on CT Date Seen by a Provider: Apr 12, 2023 Time Seen by a Provider: 11:00 Allergies and Home Medications Allergies Coded Allergies: No Known Drug Allergies (Unverified , 01/26/23) Patient Home Medication List Home Medication List Reviewed: Yes Albuterol Sulfate (Proventil Hfa) 6.7 Gm Hfa.aer.ad, 2 PUFF IH Q4H PRN for SHORTNESS OF BREATH, (Reported) Entered as Reported by: WING LIGHT on 04/23/15 1151 Last Action: Continued Buspirone HCl (Buspirone HCl) 5 Mg Tablet, 5 MG PO BID PRN for ANXIETY, (Reported) Entered as Reported by: ANDREY LOONEY on 04/12/23936 Last Action: Continued Cetirizine HCl (Cetirizine HCl) 10 Mg Tablet, 10 MG PO HS, (Reported) Entered as Reported by: ANDREY LOONEY on 04/12/23936 Last Action: Converted Dicyclomine HCl (Dicyclomine HCl) 10 Mg Capsule, 10 MG PO DAILY, (Reported) Entered as Reported by: ANDREY LOONEY on 04/12/23936 Last Action: Continued Divalproex Sodium (Divalproex Sodium ER) 500 Mg Tab.er.24h, 1,000 MG PO HS, (Reported) Entered as Reported by: DEVORAH RAZA on 01/10/182324 Last Action: Converted Haloperidol (Haloperidol) 10 Mg Tablet, 10 MG PO HS, (Reported) Entered as Reported by: DEVORAH RAZA on 01/10/182324 Last Action: Converted Haloperidol (Haloperidol) 5 Mg Tablet, 5 MG PO DAILY, (Reported) Entered as Reported by: DEVORAH RAZA on 01/10/182324 Last Action: Continued Ibuprofen (Ibuprofen) 800 Mg Tablet, 800 MG PO TID PRN for PAIN-MILD (1-4), (Reported) Entered as Reported by: ANDREY LOONEY on 04/12/23936 Last Action: Continued Lisinopril (Lisinopril) 10 Mg Tablet, 10 MG PO HS, (Reported) Entered as Reported by: ANDREY LOONEY on 04/12/23936 Last Action: Continued Metformin HCl (Metformin HCl ER) 500 Mg Tab.er.24h, 1,000 MG PO BID, (Reported) Entered as Reported by: ANDREY LOONEY on 04/12/23936 Last Action: Continued Mirtazapine (Mirtazapine) 30 Mg Tablet, 30 MG PO HS, (Reported) Entered as Reported by: ANDREY LOONEY on 04/12/23936 Last Action: Converted Paliperidone (Paliperidone ER) 9 Mg Tab.er.24, 9 MG PO DAILY, (Reported) Entered as Reported by: DEVORAH RAZA on 01/10/182324 Last Action: Converted Paliperidone (Paliperidone ER) 3 Mg Tab.er.24, 3 MG PO HS, (Reported) Entered as Reported by: ANDREY LOONEY on 04/12/23 0937 Last Action: Converted Rosuvastatin Calcium (Rosuvastatin Calcium) 40 Mg Tablet, 40 MG PO HS, (Reported) Entered as Reported by: PO WELSH on 03/30/211925 Last Action: Converted Discontinued Medications Albuterol Sulfate (Ventolin Hfa) 1 Puff Puff, 2 PUFF IH Q4H Discontinued Reason: No Longer Taking Prescribed by: CASSIA ORANTES on 06/07/20 2348 Last Action: Discontinued Atorvastatin Calcium (Atorvastatin Calcium) 40 Mg Tablet, 40 MG PO HS, (Report ed) Discontinued Reason: No Longer Taking Entered as Reported by: DEVORAH RAZA on 01/10/182324 Last Action: Discontinued Cyclobenzaprine HCl (Cyclobenzaprine HCl) 10 Mg Tablet, 10 MG PO Q8H PRN for SPASMS Discontinued Reason: No Longer Taking Prescribed by: BASIL CASAREZ on 03/30/212005 Last Action: Discontinued Cyclobenzaprine HCl (Cyclobenzaprine HCl) 10 Mg Tablet, 10 MG PO Q8H PRN for SPASMS Discontinued Reason: No Longer Taking Prescribed by: BASIL CASAREZ on 11/27/22 1443 Last Action: Discontinued Diclofenac Sodium (Diclofenac Sodium) 75 Mg Tablet.dr, 75 MG PO BID Discontinued Reason: No Longer Taking Prescribed by: Carson Proctor on 12/25/212015 Last Action: Discontinued Divalproex Sodium (Divalproex Sodium ER) 250 Mg Tab.er.24h, 250 MG PO DAILY, (Reported) Discontinued Reason: No Longer Taking Entered as Reported by: DEVORAH RAZA on 01/10/182324 Last Action: Discontinued Docusate Sodium (Docusate Sodium) 100 Mg Capsule, 100 MG PO BID PRN for CONSTIPATION Discontinued Reason: No Longer Taking Prescribed by: VENKAT LOOMIS on 04/29/15 0834 Last Action: Discontinued Dulaglutide (Trulicity) 3 Mg/0.5 Ml Pen.injctr, (Reported) Discontinued Reason: No Longer Taking Entered as Reported by: PO WELSH on 03/30/211925 Last Action: Discontinued Hydrocodone/Acetaminophen (Hydrocodone-Acetamin 5-325 mg) 5 Mg-325 Mg Tablet, 1 TAB PO Q4H PRN for PAIN-MODERATE (5-7) Discontinued Reason: No Longer Taking Prescribed by: NAZ SAUNDERS on 03/27/22 2331 Last Action: Discontinued Hydrocodone/Acetaminophen (Hydrocodone-Acetamin 5-325 mg) 5 Mg-325 Mg Tablet, 1 TAB PO Q4H PRN for PAIN-MODERATE (5-7) Discontinued Reason: No Longer Taking Prescribed by: LOBO MONTIEL on 09/29/22 1552 Last Action: Discontinued Hydrocodone/Acetaminophen (Hydrocodone-Acetamin 5-325 mg) 5 Mg-325 Mg Tablet, 1 TAB PO Q4H PRN for PAIN-MODERATE (5-7) Discontinued Reason: No Longer Taking Prescribed by: LOBO MONTIEL on 01/23/232001 Last Action: Discontinued Hydroxyzine HCl (Hydroxyzine HCl) 25 Mg Tablet, 25-50 MG PO DAILY, (Reported) Discontinued Reason: No Longer Taking Entered as Reported by: DEVORAH RAZA on 01/10/18 2325 Last Action: Discontinued Hydroxyzine HCl (Hydroxyzine HCl) 50 Mg Tablet, (Reported) Discontinued Reason: No Longer Taking Entered as Reported by: PO WELSH on 03/30/21 1926 Last Action: Discontinued Ibuprofen (Ibuprofen) 600 Mg Tablet, 600 MG PO TID PRN for PAIN, (Reported) Discontinued Reason: No Longer Taking Entered as Reported by: DEVORAH RAZA on 11/13/14 1129 Last Action: Discontinued Insulin Aspart (Novolog Flexpen) 300 Units/3 Ml Solution, 10 UNITS SQ AC Discontinued Reason: No Longer Taking Prescribed by: SUE RUSH on 01/11/18 1015 Last Action: Discontinued Insulin Detemir (Levemir Flextouch) 100 Unit/1 Ml Insuln.pen, 40 UNIT SQ HS Discontinued Reason: No Longer Taking Prescribed by: SUE RUSH on 01/11/18 1015 Last Action: Discontinued Levothyroxine Sodium (Levothyroxine Sodium) 75 Mcg Tablet, 75 MCG PO HS, (Reported) Discontinued Reason: No Longer Taking Entered as Reported by: WING LIGHT on 04/23/15 1151 Last Action: Discontinued Meloxicam (Meloxicam) 15 Mg Tablet, 15 MG PO DAILY Discontinued Reason: No Longer Taking Prescribed by: LOBO MONTIEL on 11/28/212208 Last Action: Discontinued Metformin HCl (Metformin HCl ER) 500 Mg Tab.er.24, 500 MG PO BID, (Reported) Discontinued Reason: No Longer Taking Entered as Reported by: DEVORAH RAZA on 01/10/18 2325 Last Action: Discontinued Methocarbamol (Methocarbamol) 750 Mg Tablet, 750 MG PO Q6-8HR Discontinued Reason: No Longer Taking Prescribed by: CONCETTA LOVING on 07/27/217 Last Action: Discontinued Methocarbamol (Methocarbamol) 750 Mg Tablet, 750 MG PO Q8H Discontinued Reason: No Longer Taking Prescribed by: CASSIA ORANTES on 01/26/23 0051 Last Action: Discontinued Naproxen (Naprosyn) 500 Mg Tablet, 500 MG PO BID Discontinued Reason: No Longer Taking Prescribed by: TRICE GALO on 08/13/181847 Last Action: Discontinued Naproxen (Naprosyn) 500 Mg Tablet, 500 MG PO BID PRN for PAIN-MODERATE (5-7) Discontinued Reason: No Longer Taking Prescribed by: CONCETTA LOVING on 07/27/211156 Last Action: Discontinued Naproxen (Naproxen) 500 Mg Tablet, 500 MG PO Q12H Discontinued Reason: No Longer Taking Prescribed by: LOBO MONTIEL on 02/04/222107 Last Action: Discontinued Tibbie, Insulin Disposable (Advocate Pen Tibbie) 1 Each Dis.needle, EACH MC ACHS, (DME) Discontinued Reason: No Longer Taking Prescribed by: SUE URSH on 01/11/18 1015 Last Action: Discontinued Omeprazole (Omeprazole) 20 Mg Capsule.dr, 20 MG PO BID Discontinued Reason: No Longer Taking Prescribed by: TRICE GALO on 11/30/212138 Last Action: Discontinued Penicillin V Potassium (Penicillin V Potassium) 500 Mg Tablet, 500 MG PO QID Discontinued Reason: No Longer Taking Prescribed by: CASSIA ORANTES on 03/10/232306 Last Action: Discontinued Prednisone (Prednisone) 20 Mg Tab, 40 MG PO DAILY Discontinued Reason: No Longer Taking Prescribed by: TRICE GALO on 08/13/181847 Last Action: Discontinued Prednisone (Prednisone) 20 Mg Tab, 40 MG PO DAILY Discontinued Reason: No Longer Taking Prescribed by: BASIL CASAREZ on 03/30/212005 Last Action: Discontinued Ranitidine HCl (Ranitidine HCl) 150 Mg Capsule, 150 MG PO BID, (Reported) Discontinued Reason: No Longer Taking Entered as Reported by: DEVOARH RAZA on 01/10/182324 Last Action: Discontinued Sucralfate (Carafate) 1 Gram Tablet, 1 GM PO QIDACHS Discontinued Reason: No Longer Taking Prescribed by: TRICE GALO on 11/30/212138 Last Action: Discontinued Terconazole (Terconazole) 45 Gm Cream.appl, 1 UNIT TOP BID Discontinued Reason: No Longer Taking Prescribed by: SUE RUSH on 01/11/18 101 Last Action: Discontinued Tramadol HCl (Tramadol HCl) 50 Mg Tablet, 50 MG PO Q6H PRN for PAIN Discontinued Reason: No Longer Taking Prescribed by: CASSIA ORANTES on 06/02/21 1519 Last Action: Discontinued Tramadol HCl (Ultram) 50 Mg Tablet, 50 MG PO Q6H PRN for PAIN-SEVERE (8-10) Discontinued Reason: No Longer Taking Prescribed by: CONCETTA LOVING on 07/02/212101 Last Action: Discontinued Tramadol HCl (Tramadol HCl) 50 Mg Tablet, 50 MG PO Q6H PRN for PAIN Discontinued Reason: No Longer Taking Prescribed by: BASIL CASAREZ on 07/03/21 1138 Last Action: Discontinued Tramadol HCl (Tramadol HCl) 50 Mg Tablet, 50 MG PO Q4H PRN for PAIN-MODERATE (5- 7) Discontinued Reason: No Longer Taking Prescribed by: LOBO MONTIEL on 11/28/21 2210 Last Action: Discontinued Tramadol HCl (Tramadol HCl) 50 Mg Tablet, 50 MG PO Q6H PRN for PAIN Discontinued Reason: No Longer Taking Prescribed by: BASIL CASAREZ on 11/27/22 1445 Last Action: Discontinued Trazodone HCl (Trazodone HCl) 150 Mg Tablet, 150 MG PO HS, (Reported) Discontinued Reason: No Longer Taking Entered as Reported by: DEVORAH RAZA on 01/10/182324 Last Action: Discontinued Triamcinolone Acet (Triamcinolone Acetonide 0.025%) 15 Gm Cr, 1 UNIT TOP BID Discontinued Reason: No Longer Taking Prescribed by: SUE RUSH on 01/11/18 1015 Last Action: Discontinued Past Psawhmi-Prucgt-Zmxkng Hx Patient Social History Marrital Status: single Employed/Student: unemployed Family Medical History Alcoholism 19 FATHER Thyroid disease 19 MOTHER Review of Systems Constitutional: see HPI, fever Physical Exam General Appearance: No Apparent Distress, WD/WN, Anxious, Chronically ill Eyes: Bilateral Eye Normal Inspection, Bilateral Eye PERRL, Bilateral Eye EOMI HEENT: PERRL/EOMI, Normal ENT Inspection, Pharynx Normal Neck: Full Range of Motion, Normal Inspection, Non Tender, Supple, Carotid Bruit Respiratory: Chest Non Tender, Lungs Clear, Normal Breath Sounds, No Accessory Muscle Use, No Respiratory Distress Cardiovascular: Regular Rate, Rhythm, No Edema, No Gallop, No JVD, No Murmur, Normal Peripheral Pulses Gastrointestinal: Normal Bowel Sounds, No Organomegaly, No Pulsatile Mass, Non Tender, Soft Back: Normal Inspection, No CVA Tenderness, No Vertebral Tenderness Extremity: Normal Capillary Refill, Normal Inspection, Normal Range of Motion, Non Tender, No Calf Tenderness, No Pedal Edema Neurologic/Psychiatric: Alert, Oriented x3, No Motor/Sensory Deficits, Normal Mood/Affect Skin: Normal Color, Warm/Dry Lymphatic: No Adenopathy Assessment/Plan Assessment and Plan Assessment: Sepsis Fever Acute pyelo Mental illness Plan: IV abx IVF Pain control Admission Diagnosis Admission Status: Observation Supervisory-Addendum Brief Verification & Attestation Participated in pt care: history, MDM, physical Personally performed: exam, history, MDM, supervision of care Care discussed with: Medical Student Procedures: n/a Results interpretation: Verified all documentation Verification and Attestation of Medical Student E/M Service A medical student performed and documented this service in my presence. I reviewed and verified all information documented by the medical student and made modifications to such information, when appropriate. I personally performed the physical exam and medical decision making. Sue Rush, Apr 12, 2023,20:42 BIBI TORRES Apr 12, 2023 08:41 SUE RUSH DO Apr 12, 2023 20:43
[2023-04-12] MEDS: HYDROmorphone INJECTION 2 MG/ML VIAL IV PRN ×3 (09:07→17:24)
[2023-04-12] MEDS ORDERED: DICY-11 PO (09:37)
[2023-04-12] MEDS ORDERED: PALI3TAB5 PO (09:37)
[2023-04-12] MEDS ORDERED: METF-865 PO (09:37)
[2023-04-12] MEDS ORDERED: LISI10TA25 PO (09:37)
[2023-04-12] MEDS ORDERED: CETI10TA17 PO (09:37)
[2023-04-12] MEDS ORDERED: IBUP-1780 PO (09:37)
[2023-04-12] MEDS ORDERED: BUSP5TAB59 PO (09:37)
[2023-04-12] MEDS ORDERED: MIRT-69 PO (09:37)
[2023-04-12] MEDS ORDERED: RT-ALBUTEROL HFA 8.5 GM INHALER IH PRN (11:45)
[2023-04-12] MEDS ORDERED: busPIRone 5 MG TABLET PO PRN ×2 (11:45→12:45)
[2023-04-12] MEDS ORDERED: PATIENT MAY USE OWN MEDS, ALL MC SCH (11:45)
--- NOTE | 2023-04-12 14:46 | Diagnostic Imaging Report ---
PROCEDURE: US Abdomen, limited. TECHNIQUE: Multiple realtime grayscale images were obtained over the abdomen in various projections. INDICATION: Right-sided back pain COMPARISON: None FINDINGS: Liver is enlarged. Measures 19 cm in length. Hepatic parenchymal echotexture however is within normal limits. There are no focal lesions. Portal vein shows hepatopetal flow. No intra or extrahepatic biliary dilatation is present. The common bile duct is not dilated and measures 4 mm. Gallbladder is visualized and appears contracted. There is no cholelithiasis nor pericholecystic free fluid. The visualized portions of the head and proximal body of the pancreas are within normal limits. The distal body and tail of the pancreas are not visualized due to overlying bowel gas. There is no ascites. Note is made of small right pleural effusion. The right kidney measures approximately 13.8 cm in length and has a normal appearance. The visualized portions of the IVC and aorta are normal. IMPRESSION: 1. Contracted gallbladder. No cholelithiasis or sonographic evidence of acute cholecystitis. 2. Small right pleural effusion. 3. Hepatomegaly. Dictated by: Dictated on workstation # [id number]
[2023-04-12] MEDS: IBUPROFEN 800 MG TABLET PO PRN (15:38)
[2023-04-12] MEDS ORDERED: cefTRIAXone IV/IM 1,000 MG in NS (IVPB) 50 ML 50 ML IV SCH (19:00)
[2023-04-12] MEDS: metFORMIN EXT RELEASE 500 MG TABLET PO SCH (20:03)
[2023-04-12] MEDS ORDERED: MIRTAZAPINE 30MG TABLET PO SCH (21:00)
[2023-04-12] MEDS ORDERED: DIVALPROEX 250 MG EXTENDED RELEASE TABLET PO SCH (21:00)
[2023-04-12] MEDS ORDERED: NON-FORMULARY MEDICATION 1 EA EA (Divalproex Sodium (Divalproex Sodium ER) 1,000 MG) PO SCH (21:00)
[2023-04-12] MEDS ORDERED: HALOPERIDOL 10 MG PO SCH (21:00)
[2023-04-12] MEDS ORDERED: CETIRIZINE 10MG TABLET PO SCH (21:00)
[2023-04-12] MEDS ORDERED: PALIPERIDONE 3 MG PO SCH (21:00)
[2023-04-12] MEDS ORDERED: ROSUVASTATIN 40MG TABLET PO SCH (21:00)
[2023-04-12] MEDS ORDERED: DIVALPROEX 500 MG PO SCH (21:00)
[2023-04-13] VITALS: BP 98/54
[2023-04-13 03:36] VITALS: BP 109/63
[2023-04-13] MEDS: NS IV 1000 ML 1,000 ML IV SCH ×2 (04:54→11:39)
[2023-04-13] MEDS: ACETAMINOPHEN 325 MG TABLET PO PRN (05:01)
[2023-04-13] MEDS: LORazepam 0.5 MG TABLET PO PRN (05:01)
[2023-04-13 06:00] LABS: ALBUMIN 2.8 GM/DL (3.2-4.5)
[2023-04-13 06:02] LABS: CALCIUM 8.7 MG/DL (8.5-10.1)
[2023-04-13 06:03] LABS: BASOPHILS # (AUTO) 0.1 10^3/uL (0.0-0.1); BASOPHILS % (AUTO) 0 % (0-10); EOSINOPHILS # (AUTO) 0.3 10^3/uL (0.0-0.3); EOSINOPHILS % (AUTO) 2 % (0-10); HEMATOCRIT 25 % (35-52); HEMOGLOBIN 8.3 g/dL (11.5-16.0); LYMPHOCYTES % (AUTO) 12 % (12-44); MEAN CORPUSCULAR HEMOGLOBIN 31 pg (25-34); MEAN CORPUSCULAR HGB CONC 33 g/dL (32-36); MEAN CORPUSCULAR VOLUME 92 fL (80-99); MEAN PLATELET VOLUME 9.6 fL (9.0-12.2); MONOCYTES # (AUTO) 2.4 10^3/uL (0.0-1.0); MONOCYTES % (AUTO) 14 % (0-12); NEUTROPHILS # (AUTO) 12.3 10^3/uL (1.8-7.8); NEUTROPHILS % (AUTO) 71 % (42-75); PLATELET COUNT 254 10^3/uL (130-400); TOTAL PROTEIN 5.5 GM/DL (6.4-8.2); WHITE BLOOD COUNT 17.3 10^3/uL (4.3-11.0)
[2023-04-13] MEDS: inSUlin ASPART 1 UNIT/0.01 ML (PER UNIT) SC SCH ×2 (06:04→11:04)
[2023-04-13 06:05] LABS: BILIRUBIN,TOTAL 0.1 MG/DL (0.1-1.0)
[2023-04-13 06:07] LABS: CREATININE SERUM 0.86 MG/DL (0.60-1.30)
[2023-04-13 07:29] VITALS: BP 107/56
[2023-04-13] MEDS: oxyCODONE IMMEDIATE RELEASE 5 MG TABLET PO PRN (08:10)
[2023-04-13] MEDS: DOCUSATE SODIUM 100 MG CAPSULE PO SCH (08:43)
[2023-04-13] MEDS: SENNOSIDES 8.6 MG TABLET PO SCH (08:45)
[2023-04-13] MEDS: metFORMIN EXT RELEASE 500 MG TABLET PO SCH (08:45)
[2023-04-13] MEDS ORDERED: DICYCLOMINE 10 MG CAPSULE PO SCH (09:00)
[2023-04-13] MEDS ORDERED: PALIPERIDONE 9 MG PO SCH (09:00)
[2023-04-13] MEDS ORDERED: HALOPERIDOL 5 MG TABLET PO SCH (09:00)
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
[2023-04-13] MEDS: IBUPROFEN 800 MG TABLET PO PRN (11:00)
[2023-04-13] MEDS ORDERED: ACHD5005 PO (11:31)
[2023-04-13] MEDS ORDERED: CEFD300C3 PO (11:31)
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
[2023-04-13 11:39] VITALS: BP 120/71
[2023-04-13 12:20] VITALS: BP 120/71
== END 2023-04-13 12:20 | disposition home or self-care (01) ==
LOC: ER 17:45 → EDUNIT# 17:45 → 4TH 20:08 → UNDOADMOB 20:08 → 4TH 20:15 → UNDODISOB 04-13 12:20
PROVIDERS: ADMIT Internal Medicine; ATTEND Internal Medicine
DX: A41.9 Sepsis, unspecified organism (principal); N12 Tubulo-interstitial nephritis, not specified as acute or chronic; E87.6 Hypokalemia; R50.9 Fever, unspecified; E11.9 Type 2 diabetes mellitus without complications; F43.10 Post-traumatic stress disorder, unspecified; F41.9 Anxiety disorder, unspecified; R10.9 Unspecified abdominal pain; F60.3 Borderline personality disorder; F17.210 Nicotine dependence, cigarettes, uncomplicated; Z79.84 Long term (current) use of oral hypoglycemic drugs; Z79.899 Other long term (current) drug therapy; Z79.4 Long term (current) use of insulin
CPT/HCPCS: 36415; 71046; 74176; 76705; 80053; 81000; 82947; 83605; 85007; 85025; 85027; 85610; 85730; 87040; 87077; 87088; 87186; 87636; 94640; 96361; 96365; 96372; 96375; 96376; G0378